=== PATIENT | male | born 1955 | race Caucasian/White ===

== ENCOUNTER 2019-11-12 13:29 | Outpatient (RCR) | payer MEDICARE, MEDICAID, SELFPAY | END 2019-12-06 23:59 | disposition home or self-care (01) | LOC: PULRHB 13:29 | PROVIDERS: Family Provider Physician Assistant; Visit Provider Family Medicine | DX: J44.9 Chronic obstructive pulmonary disease, unspecified (principal) ==

== ENCOUNTER 2019-11-20 10:03 | Inpatient (IN) | payer MEDICARE, MEDICAID, SELFPAY ==
[2019-11-20] VITALS (10 sets, daily range): BP systolic 153–177; BP diastolic 78–99; PULSE 77–92; RESP 16–28; TEMP 36.8–37; O2SAT 91–98; BMI 30.1
--- NOTE | 2019-11-20 10:12 | ED_ITS ---
Entered by Kath Mcfadden, acting as scribe for Nagi Olivarez DO HPI - SOB/Dyspnea General: Chief Complaint: Shortness of Breath/Dyspnea Stated Complaint: DIFF BREATHING Time Seen by Provider: 11/20/19 10:14 History of Present Illness: HPI Narrative: 64 yo male presents with shortness of breath. Pt recieved 125 of solumedrol by EMS prior to arrival. pt states that he has a moderately productive cough. pt states that he is chronically on 2 l iters of O2. Pt states that he feels tired and has low energry. MD elicited complaint: shortness of breath Associated symptoms: Reports nausea, orthopnea and palpitations; Deny abdominal pain, chest pain, dizziness, extremity pain, polydipsia, polyuria, syncope or vomiting Review of Systems Const: Reports: chills; Denies: body aches, fatigue, malaise or night sweats Eyes: Denies: change in vision or blurry vision ENMT: Denies: throat pain, oral sores/lesions, dental pain, nasal discharge or nasal congestion Card: Reports: palpitations, irregular heart rhythm, edema, shortness of breath on exertion and shortness of breath when lying down; Denies: chest pain, syncope or leg pain with exertion Resp: Reports: shortness of breath, productive cough and wheezing; Denies: non-productive cough GI: Reports: nausea; Denies: abdominal pain, vomiting, vomiting blood, coffee grounds in vomit, difficulty swallowing, heartburn/indigestion, diarrhea, constipation, cramping, blood in stool or black tarry stool : Denies: flank pain, difficulty urinating, painful urination, urinary frequency, urinary urgency, urinary incontinence or blood in urine Musc: Denies: neck pain, back pain, extremity pain, extremity swelling, joint pain or joint swelling Skin/Breast: Denies: rash, itching or redness Neuro: Reports: weakness in extremities and difficulty walking; Denies: headache, numbness in extremities, changes in sensation, lack of coordination, frequent falls, dizziness, vertigo or confusion Psych: Reports: anxiety and depression; Denies: loss of interest, visual hallucinations, auditory hallucinations, suicidal ideation or homicidal ideation Endo: Denies: excessive urination, excessive thirst, tired all the time or cold intolerance Dov/Lymph: Denies: easy bruising, easy bleeding, petechiae, enlarged lymph nodes or tender lymph nodes PFSH ED PFSH: Statuses (acute, chronic, etc) shown below reflect problem list status as previously entered and may not be historically accurate Medical History CAD (coronary artery disease) (Acute) CHF (congestive heart failure) (Acute) COPD (chronic obstructive pulmonary disease) (Acute) Heart attack (Acute) Hypertension (Acute) Social History Smoking and tobacco status: former smoker Physical Exam Const: COMMON NORMALS: average body habitus, oriented x3 and alert GENERAL APPEARANCE: cooperative, comfortable, well kempt and well developed NUTRITIONAL APPEARANCE: not obese ORIENTATION/CONSCIOUSNESS: Yes awake, Yes oriented to person and Yes oriented to place HENMT: COMMON NORMALS: normocephalic, head/scalp atraumatic, EAC's normal, TM's normal bilaterally, external nose normal, moist oral mucous membranes and oropharynx normal HEAD & SCALP: normocephalic and atraumatic NOSE: external nose normal EXTERNAL AUDITORY CANAL: EAC's normal TYMPANIC MEMBRANE: TM's normal bilaterally MOUTH: oral and palatal mucosa normal, lip normal and tongue normal THROAT: posterior oropharynx normal and tonsils normal Eye: COMMON NORMALS: PERRL, EOMs intact bilaterally, conjunctivae normal and no scleral icterus CONJUNCTIVA: Yes conjunctivae normal PUPIL: Yes PERRL Neck/C-Spine: COMMON NORMALS: full ROM, no lymphadenopathy, supple, no meningeal signs and thyroid normal THYROID: thyroid normal and asymmetrical Lymph: LYMPHATIC: no lymphadenopathy noted Resp: EFFORT & INSPECTION: Yes tachypneic, Yes respiratory distress, Yes actively coughing and Yes audible wheezes AUSCULTATION: wheezes Cardio: COMMON NORMALS: regular rate and regular rhythm RATE: regular rate RHYTHM: regular rhythm HEART SOUNDS: no murmurs GI: COMMON NORMALS: normal to inspection, nondistended, normoactive bowel sounds, soft to palpation and no hepatosplenomegaly PALPATION: Yes soft and Yes no hepatosplenomegaly : COMMON NORMALS: Yes no CVA tenderness BLADDER/KIDNEY EXAM: Yes no CVA tenderness Back/Pelvis: COMMON NORMALS: no CVA tenderness LUMBAR SPINE/LOWER BACK: Yes normal to inspection Extremity: COMMON NORMALS: no clubbing, cyanosis or edema, no calf tenderness and no pedal edema Neuro: COMMON NORMALS: oriented x3 SENSORIUM/ORIENTATION: Yes alert, Yes oriented to person and Yes oriented to place MENINGEAL SIGNS: Yes no meningeal signs Psych: APPEARANCE: Yes well kempt Skin: COMMON NORMALS: no rashes or lesions noted and skin turgor normal GENERAL SKIN EXAM: no rashes or lesions noted and turgor normal Course ED course: Patient requiring 5 L of oxygen to maintain oxygen saturation was mildly hypoxic initial blood gas. Will admit for exacerbation COPD also cover with antibiotics may benefit from diuresis as well has had problems with heart failure in the past Vital Signs: Vital signs: Vital Signs Temperature 98.3 F 11/20/19 10:05 Pulse Rate 92 11/20/19 14:53 Respiratory Rate 20 H 11/20/19 14:53 Blood Pressure 156/78 11/20/19 14:53 Pulse Oximetry 95 11/20/19 14:53 MDM - SOB/Dyspnea Lab Data: Labs: Lab Results 11/20/19 11/20/19 11/20/19 Range/Units 09:52 09:52 11:20 WBC 7.5 (4.0-10.0) 10^3/ uL RBC 5.32 H (4.1-5.3) 10^6/u L Hgb 14.1 (11.7-16.6) g/dL Hct 44.7 (42.0-52.0) % MCV 84.0 (80-94) fL MCH 26.5 L (28.0-34.0) pg MCHC 31.5 (30.0-36.0) g/dL RDW 15.6 H (12.1-15.1) % Plt Count 286 (130-400) 10^3/c mm MPV 9.9 (7.4-10.4) fL Neut % (Auto) 81.6 % Lymph % (Auto) 7.4 % Glades % (Auto) 9.5 % Eos % (Auto) 0.5 % Baso % (Auto) 0.7 % Neut # (Auto) 6.1 (1.8-7.7) 10^3/u L Lymph # (Auto) 0.6 L (0.8-4.8) 10^3/u L Glades # (Auto) 0.7 (0.2-0.9) 10^3/u L Eos # (Auto) 0.0 (0.0-0.8) 10^3/u L Baso # (Auto) 0.1 (0.0-0.1) 10^3/u L Nucleated RBC % (a uto) 0 % Nucleated RBCs # 0.0 /100WBC Specimen Type Arterial Sample Site Radial, right ABG pH 7.39 (7.35-7.45) ABG pCO2 56.0 H (35-45) mmHg ABG pO2 49.8 L (80.0-100.0) mmH g ABG HCO3 34.2 H (22-26) mmol/L ABG Base Excess 7.4 H (-2.0-2.0) mmol/ L Gee Test Pos Hematocrit 42.0 (42-52) % Hgb O2 Saturation 80.2 L (95-100) % Carboxyhemoglobin 6.8 (0.4-20.1) %THgb Methemoglobin 0.9 (0.4-1.5) % Total Hemoglobin 13.7 L (14-18) g/dL O2 Delivery Device Nc O2 Liters/Min 5.0 % Specimen Drawn By [email or web address] Sock Ironer ID [email or web address] Sodium 140 (136-145) mmol/L Potassium 4.5 (3.5-5.1) mmol/L Chloride 98 (98-107) mmol/L Carbon Dioxide 32 H (22-29) mmol/L Anion Gap 14.5 (5-19) BUN 11 (8-23) mg/dL Creatinine 0.7 (0.7-1.2) mg/dL GFR Calculation 114.3 (90-130) mL/min Glucose 118 H (74-106) mg/dL Calcium 9.5 (8.8-10.2) mg/Dl Total Bilirubin 0.3 (0.15-1.2) mg/dL AST 15 (0-40) U/L ALT 13 (0-41) U/L Alkaline Phosphata se 114 (40-130) IU/L Total Protein 6.8 (6.6-8.7) g/dL Albumin 4.2 (3.5-5.2) g/dL Globulin 2.6 (1.3-4.6) g/dL Influenza Type A A g (Negative) POC Influenza B Ag (Negative) 11/20/19 11/20/19 Range/Units 11:58 13:20 WBC (4.0-10.0) 10^3/ uL RBC (4.1-5.3) 10^6/u L Hgb (11.7-16.6) g/dL Hct (42.0-52.0) % MCV (80-94) fL MCH (28.0-34.0) pg MCHC (30.0-36.0) g/dL RDW (12.1-15.1) % Plt Count (130-400) 10^3/c mm MPV (7.4-10.4) fL Neut % (Auto) % Lymph % (Auto) % Glades % (Auto) % Eos % (Auto) % Baso % (Auto) % Neut # (Auto) (1.8-7.7) 10^3/u L Lymph # (Auto) (0.8-4.8) 10^3/u L Glades # (Auto) (0.2-0.9) 10^3/u L Eos # (Auto) (0.0-0.8) 10^3/u L Baso # (Auto) (0.0-0.1) 10^3/u L Nucleated RBC % (a uto) % Nucleated RBCs # /100WBC Specimen Type Arterial Sample Site Radial, right ABG pH 7.37 (7.35-7.45) ABG pCO2 56.8 H (35-45) mmHg ABG pO2 57.3 L (80.0-100.0) mmH g ABG HCO3 32.6 H (22-26) mmol/L ABG Base Excess 5.6 H (-2.0-2.0) mmol/ L Gee Test Pos Hematocrit 42.5 (42-52) % Hgb O2 Saturation (95-100) % Carboxyhemoglobin (0.4-20.1) %THgb Methemoglobin (0.4-1.5) % Total Hemoglobin (14-18) g/dL O2 Delivery Device O2 Liters/Min 5.0 % Specimen Drawn By Sock Ironer ID [id number] Sodium (136-145) mmol/L Potassium (3.5-5.1) mmol/L Chloride (98-107) mmol/L Carbon Dioxide (22-29) mmol/L Anion Gap (5-19) BUN (8-23) mg/dL Creatinine (0.7-1.2) mg/dL GFR Calculation (90-130) mL/min Glucose (74-106) mg/dL Calcium (8.8-10.2) mg/Dl Total Bilirubin (0.15-1.2) mg/dL AST (0-40) U/L ALT (0-41) U/L Alkaline Phosphata se (40-130) IU/L Total Protein (6.6-8.7) g/dL Albumin (3.5-5.2) g/dL Globulin (1.3-4.6) g/dL Influenza Type A A g Negative (Negative) POC Influenza B Ag Negative (Negative) Discharge Plan Discharge Patient Disposition: Placed in Observation Admit Provider: Jany Eugene Clinical Impression: Acute exacerbation of chronic obstructive airways disease, Congestive heart failure Interventions: ED Discharge Assessment Last Done: 11/20/19 14:53 Discharge Date/Time: 11/20/19 14:57 Coding Level of Care Code ED Inventory And Pricing Associate for Chg Fwd Exam Problem Focused The documentation recorded by the Bogdan arteaga Kialy, accurately reflects the service I personally performed and the decisions made by Sher seo Curtis L, DO Nov 20, 2019 10:03
--- NOTE | 2019-11-20 10:14 | XR_ITS ---
WS: [id number] PORTABLE CHEST HISTORY: dyspnea COMPARISON: 05/09/2019 Mild progression of interstitial thickening throughout both lungs since the prior examination. No con solidations. No pleural effusion or pneumothorax. Cardiac size: Normal. Mediastinum/Aorta: Mild atherosclerosis aorta. No osseous abnormality seen. XR/XR chest 1V portable [id number] IMPRESSION: 1. Progression of interstitial thickening since the prior study. May be progre ssion of patient's known chronic interstitial lung disease or mild interstitial edema. 2. No pneumonia.
[2019-11-20 10:22] LABS: Basophils # 0.1 10^3/uL (0.0-0.1); Basophils % 0.7 %; Eosinophils % 0.5 %; Hematocrit 44.7 % (42.0-52.0); Hemoglobin 14.1 g/dL (11.7-16.6); Lymphocytes # 0.6 10^3/uL (0.8-4.8); Lymphocytes % 7.4 %; Mean Corpuscular HGB Conc 31.5 g/dL (30.0-36.0); Mean Corpuscular Hemoglobin 26.5 pg (28.0-34.0); Mean Platelet Volume 9.9 fL (7.4-10.4); Monocytes # 0.7 10^3/uL (0.2-0.9); Monocytes % 9.5 %; Neutrophils # 6.1 10^3/uL (1.8-7.7); Neutrophils % 81.6 %; Nucleated Red Blood Cells % 0 %; Platelet Count 286 10^3/cmm (130-400); Red Blood Count 5.32 10^6/uL (4.1-5.3); Red Cell Distribution Width 15.6 % (12.1-15.1); White Blood Count 7.5 10^3/uL (4.0-10.0)
[2019-11-20 10:43] LABS: Alanine Aminotransferase 13 U/L (0-41); Albumin Level 4.2 g/dL (3.5-5.2); Alkaline Phosphatase 114 IU/L (40-130); Anion Gap 14.5 (5-19); Aspartate Amino Transferase 15 U/L (0-40); Blood Urea Nitrogen 11 mg/dL (8-23); Calcium 9.5 mg/Dl (8.8-10.2); Carbon Dioxide 32 mmol/L (22-29); Chloride 98 mmol/L (98-107); Globulin 2.6 g/dL (1.3-4.6); Glomerular Filtration Rate 114.3 mL/min (90-130); Glucose 118 mg/dL (74-106); Potassium 4.5 mmol/L (3.5-5.1); Sodium 140 mmol/L (136-145); Total Bilirubin 0.3 mg/dL (0.15-1.2); Total Protein 6.8 g/dL (6.6-8.7)
[2019-11-20] MEDS: ipratropium-albuterol 3 mL Neb INHALATION ×4 (11:20→21:55)
[2019-11-20 11:33] LABS: ABG PH Result 7.39 (7.35-7.45); Base Excess ABG 7.4 mmol/L (-2.0-2.0); Blood Gas Allen Test Pos; Blood Gas Sample Site Radial, right; Blood Gas Sample Type Arterial; Carboxyhemoglobin 6.8 %THgb (0.4-20.1); HCO3 ABG 34.2 mmol/L (22-26); HGB O2 Sat 80.2 % (95-100); Methemoglobin 0.9 % (0.4-1.5); PO2 ABG 49.8 mmHg (80.0-100.0); Total Hemoglobin 13.7 g/dL (14-18)
[2019-11-20 12:41] LABS: Influenza A by IFA Negative (Negative); Influenza B by IFA Negative (Negative)
[2019-11-20 13:34] LABS: ABG PCO2 56.8 mmHg (35-45); ABG PH Result 7.37 (7.35-7.45); Arterial Blood Gas Hematocrit 42.5 % (42-52); Base Excess ABG 5.6 mmol/L (-2.0-2.0); Blood Gas Allen Test Pos; Blood Gas Sample Site Radial, right; Blood Gas Sample Type Arterial; HCO3 ABG 32.6 mmol/L (22-26); PO2 ABG 57.3 mmHg (80.0-100.0)
[2019-11-20] MEDS: levofloxacin-dextrose 5 % 750 MG/150 ML PREMIX 150 MG IV (13:38)
[2019-11-20 13:39] LABS: Oxygen Device NC
--- NOTE | 2019-11-20 14:21 | P.HP_ITS ---
Providers/Chief Complaint Admitting Physician: Jany Eugene MD Primary Care Provider: Nasreen Gomez Chief Complaint: DIFF BREATHING History of Present Illness Nagi Cuellar is a 64 year old male with a past medical history of COPD, congestive heart failure, atrial fibrillation not on anticoagulation due to massive GI bleeding in the past and diabetes who presents to the ED today with worsening shortness of breath over the past 3 to 4 days. Patient states he has been experiencing symptoms of runny nose, some chills and dry cough over the past week or so. He has been noncompliant with his medications including nebulizations, his Lasix, and rate control medications as he has run out of his medications and is unable to afford to buy them until next month. He states he gets paid on the third of every month and will not be able to get any prescriptions until next month when he gets paid. In the ED he was noted to be tachypneic on exam upon arrival, wheezing and received Solu-Medrol and multiple rounds of nebulizations after which his breathing has now improved. He has noticed increased lower extremity edema over the past 1 week. He was also receiving IV fluids which have now been stopped and Lasix 40 mg IV has been administered. ABG performed today shows evidence of hypoxia and chronic hypercapnia. He is currently compensated with a pH of 7.37 elevated bicarb. Denies any current complaints of chest pain or palpitations. Review of Systems General: Reports: 10 or more systems reviewed and unremarkable except in HPI and below Const: Reports: fever, chills and body aches Eyes: Denies: change in vision or blurry vision Card: Reports: swelling of feet/ankles; Denies: chest pain, palpitations or irregular heart rhythm Resp: Reports: shortness of breath, non-productive cough and wheezing; Denies: productive cough, pain on inspiration or coughing up blood GI: Denies: abdominal pain, nausea, vomiting or diarrhea : Denies: urinary frequency, urinary urgency or urinary hesitancy Neuro: Denies: headache, numbness in extremities, weakness in extremities, dizziness, vertigo or confusion Psych: Reports: anxiety; Denies: depression or mood swings Endo: Denies: excessive urination, excessive thirst, tired all the time or cold intolerance Dov/Lymph: Denies: easy bruising or easy bleeding Medications/Allergies Home Medications Medication Instructions Recorded Confirmed Last Taken Type albuterol sulfate 1.25 mg INHALATION Q4H PRN 11/20/19 11/20/19 Unknown History digoxin 125 mcg PO DAILY 11/20/19 11/20/19 11/20/19 History diltiazem HCl [Cartia XT] 240 mg PO DAILY 11/20/19 11/20/19 11/20/19 History fluticasone propion-salmeterol 1 inh INHALATION BID 11/20/19 11/20/19 11/19/19 History [Advair Diskus] furosemide [Lasix] 40 mg PO BID 11/20/19 11/20/19 Unknown History insulin glargine [Basaglar KwikPen 20 unit SUBCUT BEDTIME 11/20/19 11/20/19 11/19/19 History U-100 Insulin] omeprazole 20 mg PO DAILY 11/20/19 11/20/19 Unknown History potassium chloride 20 meq PO BID 11/20/19 11/20/19 11/20/19 History roflumilast [Daliresp] 500 mcg PO DAILY 11/20/19 11/20/19 11/20/19 History rosuvastatin 10 mg PO DAILY 11/20/19 11/20/19 11/20/19 History sitagliptin [Januvia] 50 mg PO DAILY 11/20/19 11/20/19 11/20/19 History trazodone 50 mg PO BEDTIME 11/20/19 11/20/19 11/19/19 History umeclidinium [Incruse Ellipta] 1 inh INHALATION DAILY 11/20/19 11/20/19 11/20/19 History Allergies Allergy/AdvReac Type Severity Reaction Status Date / Time No Known Allergies Allergy Verified 11/20/19 10:12 PFSH Acute PFSH: Statuses (acute, chronic, etc) shown below reflect problem list status as previously entered and may not be historically accurate Medical History CAD (coronary artery disease) (Acute) CHF (congestive heart failure) (Acute) COPD (chronic obstructive pulmonary disease) (Acute) Heart attack (Acute) Hypertension (Acute) Social History Smoking and tobacco status: former smoker Vitals/I&O/Wt Last Vital Signs Temp 98.3 F 11/20/19 10:05 Pulse 86 11/20/19 13:33 Resp 24 H 11/20/19 13:33 BP 177/99 11/20/19 10:05 Pulse Ox 93 11/20/19 13:33 Weight last 48 hrs Weight 82.1 kg Physical Exam Const: COMMON NORMALS: no apparent distress, oriented x3 and alert Eye: COMMON NORMALS: PERRL and EOMs intact bilaterally Chest: COMMONS NORMALS: inspection of chest normal Resp: COMMON NORMALS: normal respiratory effort, no retractions and no use of accessory muscles AUSCULTATION: crackles Laterality: bilateral and rhonchi lower bilaterally Cardio: COMMON NORMALS: no JVD, regular rate, regular rhythm, S1 normal heart sound, S2 normal heart sound, no gallops, no clicks, no murmurs, no rub and peripheral pulses 2+ throughout GI: COMMON NORMALS: normal to inspection, nondistended, normoactive bowel sounds, soft to palpation, non-tender, no hepatosplenomegaly and no masses Extremity: GENERAL: Yes edema Neuro: COMMON NORMALS: oriented x3, CN's II-XII intact bilaterally, moves all extremities, no focal motor deficits, no sensory deficits noted, deep tendon reflexes 2+ bilaterally and gait normal Psych: COMMON NORMALS: mental status grossly normal Skin: GENERAL SKIN EXAM: no rashes or lesions noted Data : 11/20/19 09:52 11/20/19 09:52 A&P Assessment and plan (1) Acute exacerbation of chronic obstructive airways disease: Admit to observation for COPD exacerbation and hypoxic respiratory failure. Solu-Medrol 80 mg IV every 6 hours. DuoNebs every 4 hours. Budesonide patient twice a day BiPAP at nighttime and as needed as needed. Supplemental O2 to keep O2 sats greater than 90%. Is on home O2 at 2 L/min at all times. He is requiring about 4 L/min. Per report patient was initially tachypneic on exam concern for respiratory fatigue, however at the time of my evaluation he is able to converse with me in complete sentences without any acute distress at this time. Status: Acute Code(s): J44.1 - Chronic obstructive pulmonary disease with (acute) exacerbation (2) Congestive heart failure: Stop IV fluids 40 mg of IV Lasix now Check BNP Standing Lasix 40 mg IV daily. May need to diurese more based on symptoms and progression of edema. Last echo in the system dates back to 04/2018 at which time he was noted to have EF of 60%, moderate left ventricular hypertrophy, no regional wall motion abnormalities and grade 1 diastolic dysfunction. Status: Acute Code(s): I50.9 - Heart failure, unspecified (3) Hypertension: Status: Acute Code(s): I10 - Essential (primary) hypertension (4) Diabetes: Status: Acute Code(s): E11.9 - Type 2 diabetes mellitus without complications (5) Atrial fibrillation: Currently A. fib that is rate controlled. We will resume home doses of digoxin and Cardizem extended release. Patient is not on anticoagulation due to history of GI bleed in 2019. He declines even low-dose aspirin at this time though he does carry a history of CAD in the past. Status: Acute Code(s): I48.91 - Unspecified atrial fibrillation Attestations Medical Necessity Statement*: Admitted for management of acute on chronic COPD exacerbation. Coding Level of Care Code Acute Machine Brush Maker for [facility] Diagnoses Acute exacerbation of chronic obstructive airways disease J44.1 Congestive heart failure I50.9 Hypertension I10 Diabetes E11.9 Atrial fibrillation I48.91
[2019-11-20] MEDS: FUROsemide 10 mg/mL SDV 4mL 40 MG IVP ×2 (14:51→16:45)
[2019-11-20] MEDS: sodium chloride 0.9% 1,000 ML 100 ML IV (16:45)
[2019-11-20] MEDS: enoxaparin 40 mg/0.4 mL Syringe SUBCUT (16:46)
[2019-11-20 16:51] LABS: Glucose Point of Care 177 mg/dL (70-110)
[2019-11-20 17:07] LABS: NT Pro B Type Natriuretic Pept 185 pg/mL (0-125)
[2019-11-20] MEDS: trazodone 50 mg Tablet PO (20:36)
[2019-11-20 23:29] LABS: Glucose Point of Care 376 mg/dL (70-110)
[2019-11-21] VITALS (17 sets, daily range): BP systolic 144–166; BP diastolic 60–80; PULSE 79–105; RESP 17–24; TEMP 36.4–37.2; O2SAT 89–95
[2019-11-21] MEDS: ipratropium-albuterol 3 mL Neb INHALATION ×7 (02:05→23:50)
[2019-11-21] MEDS: FUROsemide 10 mg/mL SDV 4mL 40 MG IVP ×2 (03:04→15:07)
[2019-11-21 04:31] LABS: Alanine Aminotransferase 10 U/L (0-41); Albumin Level 3.2 g/dL (3.5-5.2); Alkaline Phosphatase 97 IU/L (40-130); Anion Gap 13.9 (5-19); Blood Urea Nitrogen 19 mg/dL (8-23); Calcium 8.8 mg/Dl (8.8-10.2); Carbon Dioxide 30 mmol/L (22-29); Chloride 97 mmol/L (98-107); Glomerular Filtration Rate 85.5 mL/min (90-130); Glucose 236 mg/dL (74-106); Potassium 3.9 mmol/L (3.5-5.1); Sodium 137 mmol/L (136-145); Total Bilirubin 0.2 mg/dL (0.15-1.2); Total Protein 6.2 g/dL (6.6-8.7)
[2019-11-21 04:40] LABS: Hematocrit 38.9 % (42.0-52.0); Hemoglobin 12.1 g/dL (11.7-16.6); Lymphocytes # 0.2 10^3/uL (0.8-4.8); Lymphocytes % 3.5 %; Mean Corpuscular HGB Conc 31.1 g/dL (30.0-36.0); Mean Corpuscular Hemoglobin 26.4 pg (28.0-34.0); Mean Corpuscular Volume 84.7 fL (80-94); Mean Platelet Volume 10.7 fL (7.4-10.4); Monocytes # 0.2 10^3/uL (0.2-0.9); Monocytes % 2.5 %; Neutrophils # 5.7 10^3/uL (1.8-7.7); Neutrophils % 93.5 %; Nucleated Red Blood Cells % 0 %; Platelet Count 267 10^3/cmm (130-400); Red Blood Count 4.59 10^6/uL (4.1-5.3); Red Cell Distribution Width 15.5 % (12.1-15.1)
[2019-11-21 04:47] LABS: Aspartate Amino Transferase 16 U/L (0-40)
[2019-11-21 05:25] LABS: Estmated Average Glucose 120; Hemoglobin A1C 5.8 % (4.0-6.0)
[2019-11-21] MEDS: budesonide 0.5 mg/2 mL Neb INHALATION ×2 (07:32→20:41)
[2019-11-21 07:33] LABS: Glucose Point of Care 200 mg/dL (70-110)
[2019-11-21] MEDS: atorvastatin 40 mg Tablet 20 MG PO (08:08)
[2019-11-21] MEDS: dilTIAZem ER (24HR) 240 mg Capsule PO (08:09)
[2019-11-21] MEDS: pantoprazole DR 40 mg Tablet PO (08:09)
[2019-11-21] MEDS: roflumilast 500 mcg Tablet PO (08:09)
[2019-11-21] MEDS: digoxin 125 mcg Tablet PO (08:09)
[2019-11-21 11:29] LABS: Glucose Point of Care 249 mg/dL (70-110)
--- NOTE | 2019-11-21 12:22 | PC.CHAP ---
Pastoral Care Encounter/Spiritual Assessment Type of Contact [] Declined morning caregiver visit [] Patient/Family/Request visit [] Outpatient visit [] Follow-up visit [] Physician referral [] Code/Alert [] Routine visit [] Staff referral [] Actively dying [] Patient sleeping [] Family support [] [] Out of room [] Palliative care [] [x] Receiving care in room [] Pre-surgical visit [] Trauma [] Long length of stay [] ICU visit [] Other: Relational/Emotional Strength [] Patient feels connected with others/family/visitors/staff [] Distress [] Loneliness/isolation [] Abandonment Spirituality of Patient [] Person of Margret [] Attends [employer] of their Margret [] Believes in Prayer [] Reads Bible or Church materials [] There are Spiritual issues to be addressed Platform Material Handler Manager Interventions [] Prayer [] Active listening [] Non-anxious presence [] Spiritual/emotional support [] Crisis/trauma care [] Spiritual counseling [] Bereavement support [] Provided bereavement packet [] Provided Bible/devotional materials [] Provided toy/stuffed animal, coloring book to patient or family member [] Completed spiritual assessment [] Provided Communion [] Anointing/[place] [] Salvation [] Other: Impact on Illness or Injury [] Angry [] Fearful [] Anxious [] Often cries [] Exhaustion [] Unable to work [] Unable to attend voodoo [] Unable to walk/stand [] Unable to read [] Unable to drive [] Unable to eat/drink [] Unable to sleep [] Unable to be with family [] Other: Summary Time spent with patient
[2019-11-21 13:35] LABS: Influenza A by IFA Negative (Negative); Influenza B by IFA Negative (Negative)
[2019-11-21] MEDS: enoxaparin 40 mg/0.4 mL Syringe SUBCUT (15:10)
[2019-11-21 16:37] LABS: Glucose Point of Care 188 mg/dL (70-110)
[2019-11-21] MEDS: guaiFENesin 100 mg/5 mL UDC 10 mL 400 MG PO (17:57)
[2019-11-21 18:42] LABS: Oxygen Device NC
--- NOTE | 2019-11-21 19:04 | PM.PN ---
Subjective Subjective: Interval history: Still c/o shortness of breath, not at baseline. tachypneic when assesed for examination earlier this afternoon. denies any current chest pain. Cough predominant symptoms. Medications: Reviewed: Yes Vitals/I&O/Wt Last Vital Signs Temp 98.2 F 11/21/19 15:54 Pulse 79 11/21/19 15:54 Resp 18 11/21/19 15:54 BP 152/78 11/21/19 15:54 Pulse Ox 92 11/21/19 15:54 11/21/19 11/21/19 11/21/19 06:59 14:59 22:59 Intake Total 1200 / 1550 480 / 480 240 / 720 Output Total 400 / 2000 450 / 450 2000 / 2450 Balance 800 / -450 30 / 30 -1760 / -1730 Weight last 48 hrs Weight 82.645 kg Weight 82.1 kg Physical Exam Const: COMMON NORMALS: oriented x3 and alert OTHER: tachypneic, looks uncomfortable Eye: COMMON NORMALS: PERRL and EOMs intact bilaterally PUPIL: Yes PERRL Neck/C-Spine: COMMON NORMALS: no JVD Chest: COMMONS NORMALS: inspection of chest normal Resp: COMMON NORMALS: normal respiratory effort, no retractions and no use of accessory muscles AUSCULTATION: crackles Laterality: bilateral and rhonchi lower bilaterally Cardio: COMMON NORMALS: no JVD, regular rate, regular rhythm, S1 normal heart sound, S2 normal heart sound, no gallops, no clicks, no murmurs, no rub and peripheral pulses 2+ throughout RATE: regular rate RHYTHM: regular rhythm HEART SOUNDS: S1 normal and S2 normal PERIPHERAL PULSES: pulses 2+ throughout GI: COMMON NORMALS: normal to inspection, nondistended, normoactive bowel sounds, soft to palpation, non-tender, no hepatosplenomegaly and no masses PALPATION: Yes soft and Yes no hepatosplenomegaly Extremity: GENERAL: Yes edema Neuro: COMMON NORMALS: oriented x3, CN's II-XII intact bilaterally, moves all extremities, no focal motor deficits, no sensory deficits noted, deep tendon reflexes 2+ bilaterally and gait normal SENSORIUM/ORIENTATION: Yes alert Psych: COMMON NORMALS: mental status grossly normal Skin: COMMON NORMALS: no rashes or lesions noted GENERAL SKIN EXAM: no rashes or lesions noted A&P Assessment and plan (1) Acute exacerbation of chronic obstructive airways disease: Admit to inpatient for ongoing managment of COPD exacerbation and hypoxic respiratory failure. Solu-Medrol 80 mg IV every 6 hours. DuoNebs every 4 hours. Budesonide patient twice a day BiPAP at nighttime and as needed as needed. Supplemental O2 to keep O2 sats greater than 90%. Is on home O2 at 2 L/min at all times. He is requiring about 4 L/min. Influenza negative Status: Acute Code(s): J44.1 - Chronic obstructive pulmonary disease with (acute) exacerbation (2) Congestive heart failure: Continue Lasix 40 mg IV q12h daily. Last echo in the system dates back to 04/2018 at which time he was noted to have EF of 60%, moderate left ventricular hypertrophy, no regional wall motion abnormalities and grade 1 diastolic dysfunction. Status: Acute Code(s): I50.9 - Heart failure, unspecified (3) Hypertension: Status: Acute Code(s): I10 - Essential (primary) hypertension (4) Diabetes: Status: Acute Code(s): E11.9 - Type 2 diabetes mellitus without complications (5) Atrial fibrillation: Currently A. fib that is rate controlled. We will resume home doses of digoxin and Cardizem extended release. Patient is not on anticoagulation due to history of GI bleed in 2019. He declines even low-dose aspirin at this time though he does carry a history of CAD in the past. Status: Acute Code(s): I48.91 - Unspecified atrial fibrillation Attestations Medical Necessity Statement*: ongoing managament of COPD exacerbation, hypoxic resp failure awaiting optimization of respiratory status Coding Level of Care Code Acute Wireless Cellular Technician for [facility] Fwd Diagnoses Acute exacerbation of chronic obstructive airways disease J44.1 Congestive heart failure I50.9 Hypertension I10 Diabetes E11.9 Atrial fibrillation I48.91
[2019-11-21] MEDS: trazodone 50 mg Tablet PO (20:55)
[2019-11-21 22:14] LABS: Glucose Point of Care 207 mg/dL (70-110)
[2019-11-22] VITALS (12 sets, daily range): BP systolic 150–162; BP diastolic 63–78; PULSE 71–100; RESP 18–24; TEMP 36.6–37; O2SAT 86–93
[2019-11-22] MEDS: FUROsemide 10 mg/mL SDV 4mL 40 MG IVP (03:33)
[2019-11-22] MEDS: ipratropium-albuterol 3 mL Neb INHALATION ×3 (03:37→11:06)
[2019-11-22] MEDS: guaiFENesin 100 mg/5 mL UDC 10 mL 400 MG PO ×2 (04:52→12:11)
[2019-11-22] MEDS: levoFLOXacin 750 mg Tablet PO (06:10)
[2019-11-22 06:22] LABS: Basophils % 0.1 %; Hematocrit 41.8 % (42.0-52.0); Hemoglobin 13.2 g/dL (11.7-16.6); Lymphocytes # 0.2 10^3/uL (0.8-4.8); Lymphocytes % 1.5 %; Mean Corpuscular HGB Conc 31.6 g/dL (30.0-36.0); Mean Corpuscular Hemoglobin 27.4 pg (28.0-34.0); Mean Corpuscular Volume 86.9 fL (80-94); Mean Platelet Volume 10.4 fL (7.4-10.4); Monocytes # 0.3 10^3/uL (0.2-0.9); Monocytes % 2.3 %; Neutrophils # 12.8 10^3/uL (1.8-7.7); Neutrophils % 95.7 %; Nucleated Red Blood Cells % 0 %; Platelet Count 289 10^3/cmm (130-400); Red Blood Count 4.81 10^6/uL (4.1-5.3); Red Cell Distribution Width 15.9 % (12.1-15.1); White Blood Count 13.4 10^3/uL (4.0-10.0)
[2019-11-22 06:37] LABS: Glucose Point of Care 194 mg/dL (70-110)
[2019-11-22 06:45] LABS: Anion Gap 19.3 (5-19); Blood Urea Nitrogen 22 mg/dL (8-23); Calcium 9.5 mg/Dl (8.8-10.2); Carbon Dioxide 31 mmol/L (22-29); Chloride 92 mmol/L (98-107); Glucose 248 mg/dL (74-106); Potassium 3.3 mmol/L (3.5-5.1); Sodium 139 mmol/L (136-145)
[2019-11-22] MEDS: budesonide 0.5 mg/2 mL Neb INHALATION (07:32)
--- NOTE | 2019-11-22 07:46 | PC.RESP ---
pt refused bipap
[2019-11-22] MEDS: benzonatate 100 mg Capsule 200 MG PO (08:23)
[2019-11-22] MEDS: digoxin 125 mcg Tablet PO (08:24)
[2019-11-22] MEDS: pantoprazole DR 40 mg Tablet PO (08:25)
[2019-11-22] MEDS: roflumilast 500 mcg Tablet PO (08:25)
[2019-11-22] MEDS: atorvastatin 40 mg Tablet 20 MG PO (08:26)
[2019-11-22] MEDS: dilTIAZem ER (24HR) 240 mg Capsule PO (08:30)
[2019-11-22 10:48] LABS: Glucose Point of Care 212 mg/dL (70-110)
--- NOTE | 2019-11-22 15:36 | PC.NURSE ---
1400 Discharge Discharge instructions given per physician's orders. Patient verbalized understanding and did not have any further questions. [id number] in process.
--- NOTE | 2019-11-22 15:37 | PC.NURSE ---
1445 Patient received medications to bedside.
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
== END 2019-11-22 13:24 | disposition home or self-care (01) | DRG 192 ==
LOC: ER 13:42 → MEDSURG 14:27
PROVIDERS: Admitting Provider Student in an Organized Health Care Education/Training Program; Emergency Provider Family Medicine; Family Provider Physician Assistant; PCP Physician Assistant; Visit Provider Student in an Organized Health Care Education/Training Program
DX: J44.1 Chronic obstructive pulmonary disease with (acute) exacerbation (principal); Z79.4 Long term (current) use of insulin; Z79.02 Long term (current) use of antithrombotics/antiplatelets; Z79.51 Long term (current) use of inhaled steroids; Z79.899 Other long term (current) drug therapy; I25.10 Atherosclerotic heart disease of native coronary artery without angina pectoris; I50.9 Heart failure, unspecified; J44.9 Chronic obstructive pulmonary disease, unspecified; I25.2 Old myocardial infarction; E11.9 Type 2 diabetes mellitus without complications; I11.0 Hypertensive heart disease with heart failure; R09.02 Hypoxemia; Z99.81 Dependence on supplemental oxygen; I48.91 Unspecified atrial fibrillation
CPT/HCPCS: 12345; 36415; 36416; 36600; 71045; 80048; 80053; 82803; 82805; 82962; 83036; 83880; 85025; 87804; 94640; 94660; 96360; 96361; 96372; 96374; 96375; 99282; G0378; J1650; J1815; J1940; J1956; J2920; J7030; J7626

== ENCOUNTER 2019-12-21 15:50 | Emergency (ER) | payer MEDICARE, MEDICAID, SELFPAY ==
[2019-12-21 15:50] VITALS: BMI 30.2
--- NOTE | 2019-12-21 15:52 | ED_ITS ---
Entered by Nancy Pat, acting as scribe for HPI - Back Pain/Injury General: Chief Complaint: Back Pain/Injury Stated Complaint: BACK PAIN Time Seen by Provider: 12/21/19 15:52 Source: EMS Mode of arrival: EMS History of Present Illness: HPI Narrative: 64 yo male presents with upper back pain. pt states this started today while lifting. pt was seen at urgent care sent to the ED for back pain and low sats due to pain. pt states he has had a hx of back pain with lifting. pt denies any other symptoms at this time. worsened with movement and exertion. MD elicited complaint: back pain Pertinent past history: prior back pain Onset (ago): day(s) (today) Timing: constant Severity: moderate Radiation: none Exacerbating factors: movement, walking, coughing/sneezing and lifting Relieving factors: none Context: while lifting Associated symptoms: Reports no associated symptoms; Deny abdominal pain, chills, difficulty walking, dysuria, fatigue, fever(s), hematuria, nausea, syncope, urinary urgency or vomiting Treatments prior to arrival: other (went to urgent care sent to ED for back pain) Review of Systems General: Reports: 10 or more systems reviewed and unremarkable except in HPI and below Const: Denies: fever, chills, body aches, fatigue, malaise or night sweats Eyes: Denies: change in vision or blurry vision ENMT: Denies: throat pain, oral sores/lesions, dental pain, nasal discharge or nasal congestion Card: Denies: chest pain, palpitations, irregular heart rhythm, edema, syncope, shortness of breath on exertion, shortness of breath when lying down or leg pain with exertion Resp: Reports: productive cough GI: Denies: abdominal pain, nausea, vomiting, vomiting blood, coffee grounds in vomit, difficulty swallowing, heartburn/indigestion, diarrhea, constipation, cramping, blood in stool or black tarry stool : Denies: flank pain, difficulty urinating, painful urination, urinary frequency, urinary urgency, urinary incontinence or blood in urine Musc: Reports: back pain Skin/Breast: Denies: rash, itching or redness Neuro: Denies: headache, numbness in extremities, weakness in extremities, changes in sensation, lack of coordination, difficulty walking, frequent falls, dizziness, vertigo or confusion Psych: Denies: anxiety, depression, loss of interest, visual hallucinations, auditory hallucinations, suicidal ideation or homicidal ideation Endo: Denies: excessive urination, excessive thirst, tired all the time or cold intolerance Dov/Lymph: Denies: easy bruising, easy bleeding, petechiae, enlarged lymph nodes or tender lymph nodes PFSH ED PFSH: Medical History Atrial fibrillation CAD (coronary artery disease) CHF (congestive heart failure) COPD (chronic obstructive pulmonary disease) Diabetes Heart attack Hypertension Surgical History H/O hernia repair Family History Mother Lung disease COPD Sister Cancer Social History Smoking and tobacco status: former smoker Quit status (tobacco): has quit using tobacco Year quit tobacco: 2019PD x 45 Years Alcohol intake: never Lives independently: Yes Household members: none Current occupational status: disabled History of recent travel: No Current gender identity: Male Physical Exam Const: COMMON NORMALS: average body habitus, oriented x3 and alert GENERAL APPEARANCE: cooperative, comfortable, well kempt and well developed NUTRITIONAL APPEARANCE: obese ORIENTATION/CONSCIOUSNESS: Yes awake, Yes oriented to person and Yes oriented to place HENMT: COMMON NORMALS: normocephalic, head/scalp atraumatic, EAC's normal, TM's normal bilaterally, external nose normal, moist oral mucous membranes and oropharynx normal HEAD & SCALP: normocephalic and atraumatic NOSE: external nose normal EXTERNAL AUDITORY CANAL: EAC's normal TYMPANIC MEMBRANE: TM's normal bilaterally MOUTH: oral and palatal mucosa normal, lip normal and tongue normal THROAT: posterior oropharynx normal and tonsils normal Eye: COMMON NORMALS: PERRL, EOMs intact bilaterally, conjunctivae normal and no scleral icterus CONJUNCTIVA: Yes conjunctivae normal PUPIL: Yes PERRL Neck/C-Spine: COMMON NORMALS: full ROM, no lymphadenopathy, supple, no meningeal signs and thyroid normal THYROID: thyroid normal and asymmetrical Lymph: LYMPHATIC: no lymphadenopathy noted Resp: COMMON NORMALS: normal respiratory effort, no retractions, no use of accessory muscles and clear to auscultation bilaterally AUSCULTATION: clear to auscultation bilaterally Cardio: COMMON NORMALS: regular rate and regular rhythm RATE: regular rate RHYTHM: regular rhythm HEART SOUNDS: no murmurs GI: COMMON NORMALS: normal to inspection, nondistended, normoactive bowel sounds, soft to palpation and no hepatosplenomegaly PALPATION: Yes soft and Yes no hepatosplenomegaly Extremity: COMMON NORMALS: no clubbing, cyanosis or edema, no calf tenderness and no pedal edema Neuro: COMMON NORMALS: oriented x3 SENSORIUM/ORIENTATION: Yes alert, Yes oriented to person and Yes oriented to place MENINGEAL SIGNS: Yes no meningeal signs Psych: APPEARANCE: Yes well kempt Skin: COMMON NORMALS: no rashes or lesions noted and skin turgor normal GENERAL SKIN EXAM: no rashes or lesions noted and turgor normal Course ED course: Patient is actually having no breathing problems. The majority time been down to see me usually revolves around his breathing today it is entirely upper liters back to musculoskeletal issues he did have some relief from medications given here we will discharge him home with hydrocodone cyclobenzaprine if has persistent symptoms recheck in the office he may need physical therapy or further imaging if it persists for an extended period of time return if has acute sudden problems. Vital Signs: Vital signs: Vital Signs Temperature 98.1 F 12/21/19 15:54 Pulse Rate 80 12/21/19 18:30 Respiratory Rate 24 H 12/21/19 18:30 Blood Pressure 173/92 12/21/19 18:30 Pulse Oximetry 93 12/21/19 18:30 Discharge Plan Discharge Patient Disposition: Home, Self-Care Clinical Impression: Back pain Condition: Stable Prescriptions: New hydrocodone-acetaminophen 5-325 mg tablet 1 tab PO Q6H PRN (Reason: pain) Qty: 15 RF: 0 cyclobenzaprine 5 mg tablet 5 mg PO TID PRN (Reason: muscle spasm) Qty: 20 RF: 0 No Action [place] Ellipta 100-62.5-25 mcg blister with device 1 inh INHALATION Q24H 60 Days Qty: 60 RF: 3 oxygen intranasal RF: 0 trazodone 50 mg Tablet 50 mg PO BEDTIME RF: 0 guaifenesin 100 mg/5 mL Liquid 400 mg PO Q4H PRN (Reason: Cough) Qty: 0 RF: 0 sodium chloride [Saline Mist] 0.65 % Aerosol,[place] 1 spray nasal PRN PRN (Reason: Dryness) Qty: 0 RF: 0 furosemide [Lasix] 40 mg Tablet 40 mg PO BID 30 Days Qty: 60 RF: 3 albuterol sulfate 1.25 mg/3 mL Solution For Nebulization 1.25 mg INHALATION Q4H PRN (Reason: Shortness Of Breath) 30 Days Qty: 30 RF: 3 diltiazem HCl [Cartia XT] 240 mg Capsule,Extended Release 24hr 240 mg PO DAILY 30 Days Qty: 30 RF: 3 digoxin 125 mcg (0.125 mg) Tablet 125 mcg PO DAILY 30 Days Qty: 30 RF: 3 rosuvastatin 10 mg Tablet 10 mg PO DAILY 30 Days Qty: 30 RF: 3 Januvia 50 mg Tablet 50 mg PO DAILY 30 Days Qty: 30 RF: 3 Daliresp 500 mcg Tablet 500 mcg PO DAILY 30 Days Qty: 30 RF: 1 potassium chloride 20 mEq Tablet Extended Release 20 meq PO BID 30 Days Qty: 60 RF: 3 fluticasone propion-salmeterol [Advair Diskus] 500-50 mcg/dose Blister With Device 1 inh INHALATION BID 30 Days Qty: 1 RF: 3 omeprazole 20 mg Capsule,Delayed Release(Dr/Ec) 20 mg PO DAILY 30 Days Qty: 30 RF: 0 Basaglar KwikPen U-100 Insulin 100 unit/mL (3 mL) Insulin Pen 20 unit SUBCUT BEDTIME 30 Days Qty: 1 RF: 3 Incruse Ellipta 62.5 mcg/actuation Blister With Device 1 inh INHALATION DAILY 30 Days Qty: 1 RF: 3 Discharge Orders: Discharge Order (Routine); Ordered 12/21/19 Ordered By: Nagi Olivarez Referrals: Nasreen Gomez PA [Primary Care Provider] - Discharge Diet: Usual diet Discharge Activity: Increase activity as tolerated Activity Restrictions/Additional Instructions: If this persists or worsens follow-up with your primary care physician Discharge Date/Time: 12/21/19 18:33 Coding Level of Care Code ED 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
[2019-12-21 15:54] VITALS: BP 176/82; PULSE 81; RESP 15; TEMP 36.7; O2SAT 96
--- NOTE | 2019-12-21 16:05 | XR_ITS ---
WS: [id number] XR thoracic spine 2V [id number] REASON FOR EXAM: pain FINDINGS: Mild scoliotic curve convex to the right. From the T6-T12 vertebra as there is degenerate c hanges along the apophyseal joints. There is multiple's mild compression deformities from T7 through T12. These suggest osteoporotic comp ression. XR/XR thoracic spine 2V [id number] IMPRESSION: Scoliotic curve convex to the right. Degenerate changes T6-T12 apophyseal joints. There is a mild compression deformities T7-T12 suggesting osteoporotic compress ion changes. No complete collapse is seen.
--- NOTE | 2019-12-21 16:06 | XR_ITS ---
WS: [id number] XR chest 1V portable [id number] REASON FOR EXAM: dyspnea/cough FINDINGS: In the right lower lung there is evidence of multiple nodular densities suggesting cylindri sg bronchiectasis. There is reticular pattern in both lung [place]. The heart is not enlarged. XR/XR chest 1V portable [id number] IMPRESSION: Suspect bronchiectasis in the right lower lung. There is chronic changes throughout both lung [place].
[2019-12-21 17:22] VITALS: RESP 16
[2019-12-21] MEDS: ondansetron 2 mg/ML SDV 2 mL 4 MG IVP (17:22)
[2019-12-21] MEDS: morphine 4 mg/mL SDV 1 mL IVP (17:22)
[2019-12-21] MEDS: orphenadrine 30 mg/mL Inj 2 mL 60 MG IV (17:23)
[2019-12-21 18:30] VITALS: BP 173/92; PULSE 80; RESP 24; O2SAT 93
== END 2019-12-21 18:33 | disposition home or self-care (01) ==
PROVIDERS: Emergency Provider Family Medicine; Family Provider Physician Assistant; PCP Physician Assistant
DX: M54.9 Dorsalgia, unspecified (principal); I11.0 Hypertensive heart disease with heart failure; I50.9 Heart failure, unspecified; J44.9 Chronic obstructive pulmonary disease, unspecified; E11.9 Type 2 diabetes mellitus without complications; I25.2 Old myocardial infarction; Z87.891 Personal history of nicotine dependence
CPT/HCPCS: 71045; 72070; 96375; 99281; J2270; J2360; J2405

== ENCOUNTER 2019-12-24 11:18 | Inpatient (IN) | payer MEDICARE, MEDICAID, SELFPAY ==
[2019-12-24] VITALS (16 sets, daily range): BP systolic 127–161; BP diastolic 67–95; PULSE 79–111; RESP 16–25; TEMP 36.8–37.1; O2SAT 77–99; BMI 68.5
--- NOTE | 2019-12-24 11:29 | XR_ITS ---
WS: [id number] XR chest 1V portable [id number] REASON FOR EXAM: shortness of breath FINDINGS: Densities are again seen in the right lower lung and there is evidence of nodules in the ri ght middle lobe and left lingula segment. The cardiac silhouette is not enlarged. There is fibrosis throughout both lung [place]. XR/XR chest 1V portable [id number] IMPRESSION: Persistent nodular densities suggesting bronchiectasis Interstitial disease throughout both lung [place]
--- NOTE | 2019-12-24 11:38 | W.ED.SOB ---
HPI - SOB/Dyspnea General: Chief Complaint: Shortness of Breath/Dyspnea Stated Complaint: shortness of breath Time Seen by Provider: 12/24/19 11:20 History of Present Illness: HPI Narrative: 64-year-old male with a history of COPD and is on oxygen at 3 L at home. Patient states that he started to feel worsening shortness of breath about 4 days ago as well as back pain. He went to the urgent care and in the urgent care they noted her he was hypoxic so he was sent to the emergency department. The patient was diagnosed with back pain and sent home on hydrocodone and cyclobenzaprine. In the ED last time his respiratory status was apparently normal. Today the patient states that his shortness of breath was worse he has been and so called EMS. On arrival to the patient's home he was hypoxic with his oxygen saturation in the 60s on 4 L. He was given a DuoNeb treatment, Solu-Medrol, and his oxygen was increased to 6 L/min. He improved with this and his saturation went up to the 90s. Arrival to the ED though his oxygen saturations were in the upper 70s and low 80s on 6 L. The patient complains of productive cough, with brown sputum. He denies a fever but had a temperature of 99.1 when EMS got to his home. Patient quit smoking about 2 weeks ago. But it appears he still smokes occasionally. MD elicited complaint: shortness of breath and cough Pertinent past history: COPD Onset (ago): day(s) (4) Context: recent illness Timing: constant and progressively worsening Severity: severe Exacerbating factors: nothing Relieving factors: nothing Known history of: COPD Associated symptoms: Reports chest congestion, cough, fever(s) (99.3 by EMS) and myalgias; Deny chest pain, diaphoresis, lightheadedness, nausea, polydipsia, polyuria or sense of impending doom Treatment prior to arrival: oxygen and bronchodilator Review of Systems General: Reports: 10 or more systems reviewed and unremarkable except in HPI and below Const: Reports: fever (99.3 by EMS); Denies: diaphoresis Eyes: Denies: change in vision or blurry vision ENMT: Denies: throat pain, enlarged tonsils, painful swallowing, hoarseness, mouth pain or swelling of lips/tongue Card: Denies: chest pain or lightheadedness Resp: Reports: chest congestion GI: Denies: nausea : Denies: flank pain, painful urination, urinary frequency, urinary urgency or urinary hesitancy Musc: Denies: neck pain, back pain or extremity swelling Skin/Breast: Denies: rash, itching or redness Neuro: Denies: headache, numbness in extremities or weakness in extremities Endo: Denies: excessive urination, excessive thirst or tired all the time PFSH ED PFSH: Medical History (Updated 01/01/20 @ 00:04 by Johnny Malloy MD, [facility] [place] Atrial fibrillation -Currently normal sinus rhythm, heart rate controlled -continue Cardizem, digoxin -Has been off anticoagulation secondary to GI bleed while on Eliquis in May 2019 -Telemetry monitoring CAD (coronary artery disease) CHF (congestive heart failure) COPD (chronic obstructive pulmonary disease) oxygen dependent, 5 L at baseline Diabetes -most recent A1c-5.8 -Insulin dependent at baseline -Accu-Cheks, scheduled insulin, ISS -Hypoglycemia precautions; hyperglycemic likely secondary to steroids Heart attack Hypertension -hypertensive, continue to monitor vital signs -continue oral antihypertensives; increased dose of amlodipine DAYNE (obstructive sleep apnea) BiPAP dependent qhs due to severe DAYNE Surgical History H/O hernia repair Family History Mother Lung disease COPD Sister Cancer Social History (Updated 12/24/19 @ 17:39 by Aleta Dover MD) Smoking and tobacco status: former smoker Quit status (tobacco): has quit using tobacco Year quit tobacco: 2019 - 1PPD x 45 Years Alcohol intake: never Substance/Drug Use: never Lives independently: Yes Household members: none Current occupational status: disabled and 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 History of recent travel: No Current gender identity: Male Physical Exam Const: COMMON NORMALS: no apparent distress, average body habitus, oriented x3, no limitations, healthy appearing, alert and well nourished HENMT: COMMON NORMALS: normocephalic, head/scalp atraumatic and moist oral mucous membranes HEAD & SCALP: normocephalic and atraumatic Eye: COMMON NORMALS: PERRL, EOMs intact bilaterally, conjunctivae normal and no scleral icterus CONJUNCTIVA: Yes conjunctivae normal PUPIL: Yes PERRL Neck/C-Spine: COMMON NORMALS: full ROM, supple, no meningeal signs, no JVD and no carotid bruits Chest: COMMONS NORMALS: inspection of chest normal and palpation of chest normal Resp: COMMON NORMALS: no use of accessory muscles and percussion normal EFFORT & INSPECTION: Yes pursed lip breathing and Yes labored AUSCULTATION: crackles, wheezes and diminished lung sounds PERCUSSION: percussion normal Cardio: COMMON NORMALS: no JVD, regular rate, regular rhythm, S1 normal heart sound, S2 normal heart sound, no gallops, no clicks, no murmurs, no rub and peripheral pulses 2+ throughout RATE: regular rate RHYTHM: regular rhythm HEART SOUNDS: S1 normal and S2 normal PERIPHERAL PULSES: pulses 2+ throughout GI: COMMON NORMALS: normal to inspection, nondistended, normoactive bowel sounds, soft to palpation, non-tender, no hepatosplenomegaly, no masses and no bruits PALPATION: Yes soft and Yes no hepatosplenomegaly : COMMON NORMALS: Yes no CVA tenderness BLADDER/KIDNEY EXAM: Yes no CVA tenderness Back/Pelvis: COMMON NORMALS: no CVA tenderness Extremity: COMMON NORMALS: normal to inspection, full ROM, normal capillary refill, no calf tenderness and no pedal edema Neuro: COMMON NORMALS: oriented x3 SENSORIUM/ORIENTATION: Yes alert MENINGEAL SIGNS: Yes no meningeal signs Skin: COMMON NORMALS: no rashes or lesions noted, no wounds, skin turgor normal, no jaundice, no petechiae and no mottling GENERAL SKIN EXAM: no rashes or lesions noted and turgor normal Course Consultations: Consultation #1: Dr. Dover. Hospitalist. She kindly accepted the patient to her service. Vital Signs: Vital signs: Vital Signs Temperature 98.9 F 12/28/19 12:23 Pulse Rate 93 12/28/19 12:23 Respiratory Rate 18 12/28/19 12:23 Blood Pressure 136/76 12/28/19 12:23 Pulse Oximetry 92 12/28/19 12:23 MDM - SOB/Dyspnea MDM Narrative: Medical decision making narrative: Patient with clinical features of a COPD exacerbation. He is admitted for further evaluation and management. Lab Data: Labs: Lab Results 12/24/19 12/24/1912/24/20 Range/Units 11:37 11:41 11:45 WBC 10.3 H (4.0-10.0) 10^3/ uL RBC 5.23 (4.1-5.3) 10^6/u L Hgb 13.8 (11.7-16.6) g/dL Hct 44.1 (42.0-52.0) % MCV 84.3 (80-94) fL MCH 26.4 L (28.0-34.0) pg MCHC 31.3 (30.0-36.0) g/dL RDW 16.4 H (12.1-15.1) % Plt Count 310 (130-400) 10^3/c mm MPV 10.3 (7.4-10.4) fL Neut % (Auto) 81.5 % Lymph % (Auto) 5.0 % Quay % (Auto) 12.4 % Eos % (Auto) 0.0 % Baso % (Auto) 0.3 % Neut # (Auto) 8.4 H (1.8-7.7) 10^3/u L Lymph # (Auto) 0.5 L (0.8-4.8) 10^3/u L Quay # (Auto) 1.3 H (0.2-0.9) 10^3/u L Eos # (Auto) 0.0 (0.0-0.8) 10^3/u L Baso # (Auto) 0.0 (0.0-0.1) 10^3/u L Nucleated RBC % (a uto) 0 % Nucleated RBCs # 0.0 /100WBC D-Dimer (0-0.59) ug/mIFE U Specimen Type Arterial Sample Site Radial, left ABG pH 7.39 (7.35-7.45) ABG pCO2 62.3 H* (35-45) mmHg ABG pO2 51.8 L (80.0-100.0) mmH g ABG HCO3 37.9 H (22-26) mmol/L ABG Base Excess 10.4 H (-2.0-2.0) mmol/ L Gee Test Pos Hematocrit 43.0 (42-52) % Hgb O2 Saturation 80.7 L (95-100) % Carboxyhemoglobin 6.6 (0.4-20.1) %THgb Methemoglobin 0.5 (0.4-1.5) % Total Hemoglobin 14.0 (14-18) g/dL O2 Delivery Device Nc O2 Liters/Min 6.0 % Equipment Hire Manager ID [email or web address] Sodium (136-145) mmol/L Potassium (3.5-5.1) mmol/L Chloride (98-107) mmol/L Carbon Dioxide (22-29) mmol/L Anion Gap (5-19) BUN (8-23) mg/dL Creatinine (0.7-1.2) mg/dL GFR Calculation (90-130) mL/min Glucose (65-115) mg/dL Calcium (8.5-10.5) mg/dL Total Bilirubin (0.15-1.2) mg/dL AST (0-40) U/L ALT (0-41) U/L Alkaline Phosphata se (40-130) IU/L NT-Pro-B Natriuret Pep (0-125) pg/mL Total Protein (6.6-8.7) g/dL Albumin (3.5-5.2) g/dL Globulin (1.3-4.6) g/dL Influenza Type A A g Negative (Negative) POC Influenza B Ag Negative (Negative) 12/24/19 12/24/19 Range/Units 11:45 11:45 WBC (4.0-10.0) 10^3/ uL RBC (4.1-5.3) 10^6/u L Hgb (11.7-16.6) g/dL Hct (42.0-52.0) % MCV (80-94) fL MCH (28.0-34.0) pg MCHC (30.0-36.0) g/dL RDW (12.1-15.1) % Plt Count (130-400) 10^3/c mm MPV (7.4-10.4) fL Neut % (Auto) % Lymph % (Auto) % Quay % (Auto) % Eos % (Auto) % Baso % (Auto) % Neut # (Auto) (1.8-7.7) 10^3/u L Lymph # (Auto) (0.8-4.8) 10^3/u L Quay # (Auto) (0.2-0.9) 10^3/u L Eos # (Auto) (0.0-0.8) 10^3/u L Baso # (Auto) (0.0-0.1) 10^3/u L Nucleated RBC % (a uto) % Nucleated RBCs # /100WBC D-Dimer 2.09 H (0-0.59) ug/mIFE U Specimen Type Sample Site ABG pH (7.35-7.45) ABG pCO2 (35-45) mmHg ABG pO2 (80.0-100.0) mmH g ABG HCO3 (22-26) mmol/L ABG Base Excess (-2.0-2.0) mmol/ L Gee Test Hematocrit (42-52) % Hgb O2 Saturation (95-100) % Carboxyhemoglobin (0.4-20.1) %THgb Methemoglobin (0.4-1.5) % Total Hemoglobin (14-18) g/dL O2 Delivery Device O2 Liters/Min % Equipment Hire Manager ID Sodium 140 (136-145) mmol/L Potassium 3.7 (3.5-5.1) mmol/L Chloride 91 L (98-107) mmol/L Carbon Dioxide 36 H (22-29) mmol/L Anion Gap 16.7 (5-19) BUN 17 (8-23) mg/dL Creatinine 0.8 (0.7-1.2) mg/dL GFR Calculation 98.0 (90-130) mL/min Glucose 141 H (65-115) mg/dL Calcium 9.8 (8.5-10.5) mg/dL Total Bilirubin 0.2 (0.15-1.2) mg/dL AST 10 (0-40) U/L ALT 10 (0-41) U/L Alkaline Phosphata se 108 (40-130) IU/L NT-Pro-B Natriuret Pep 588 H (0-125) pg/mL Total Protein 7.3 (6.6-8.7) g/dL Albumin 3.5 (3.5-5.2) g/dL Globulin 3.8 (1.3-4.6) g/dL Influenza Type A A g (Negative) POC Influenza B Ag (Negative) Discharge Plan Discharge Patient Disposition: Admitted As Inpatient Admit Provider: Aleta Dover Clinical Impression: Acute exacerbation of chronic obstructive airways disease Condition: Stable Discharge Orders: Discharge Order (Routine); Ordered 12/28/19 Ordered By: Aleta Dover Referrals: [facility] [place] [Outside] Nasreen Gomez PA [Primary Care Provider] - 01/02/20 9:15 am () Discharge Diet: Diabetic Discharge Activity: Resume usual activity Patient Instructions: Prednisone (By mouth), Amlodipine (By mouth), Levofloxacin (By mouth), COPD - Emphysema Interventions: ED Discharge Assessment Last Done: 12/24/19 19:40 Discharge Date/Time: 12/24/19 19:40 Coding Level of Care Code ED Chip Bin Conveyor Tender for Chg Fwd Exam Comprehensive
[2019-12-24 11:54] LABS: Basophils % 0.3 %; Hematocrit 44.1 % (42.0-52.0); Hemoglobin 13.8 g/dL (11.7-16.6); Lymphocytes # 0.5 10^3/uL (0.8-4.8); Mean Corpuscular HGB Conc 31.3 g/dL (30.0-36.0); Mean Corpuscular Hemoglobin 26.4 pg (28.0-34.0); Mean Corpuscular Volume 84.3 fL (80-94); Mean Platelet Volume 10.3 fL (7.4-10.4); Monocytes # 1.3 10^3/uL (0.2-0.9); Monocytes % 12.4 %; Neutrophils # 8.4 10^3/uL (1.8-7.7); Neutrophils % 81.5 %; Nucleated Red Blood Cells % 0 %; Platelet Count 310 10^3/cmm (130-400); Red Blood Count 5.23 10^6/uL (4.1-5.3); Red Cell Distribution Width 16.4 % (12.1-15.1); White Blood Count 10.3 10^3/uL (4.0-10.0)
[2019-12-24 12:18] LABS: Alanine Aminotransferase 10 U/L (0-41); Albumin Level 3.5 g/dL (3.5-5.2); Alkaline Phosphatase 108 IU/L (40-130); Anion Gap 16.7 (5-19); Aspartate Amino Transferase 10 U/L (0-40); Blood Urea Nitrogen 17 mg/dL (8-23); Calcium 9.8 mg/dL (8.5-10.5); Carbon Dioxide 36 mmol/L (22-29); Chloride 91 mmol/L (98-107); Globulin 3.8 g/dL (1.3-4.6); Glucose 141 mg/dL (65-115); NT Pro B Type Natriuretic Pept 588 pg/mL (0-125); Potassium 3.7 mmol/L (3.5-5.1); Sodium 140 mmol/L (136-145); Total Bilirubin 0.2 mg/dL (0.15-1.2); Total Protein 7.3 g/dL (6.6-8.7)
[2019-12-24 12:19] LABS: Influenza A by IFA Negative (Negative); Influenza B by IFA Negative (Negative)
[2019-12-24 12:34] LABS: D Dimer 2.09 ug/mIFEU (0-0.59)
[2019-12-24 13:05] LABS: ABG PH Result 7.39 (7.35-7.45); Base Excess ABG 10.4 mmol/L (-2.0-2.0); Blood Gas Allen Test Pos; Blood Gas Operator Identificat amh; Blood Gas Sample Site Radial, left; Blood Gas Sample Type Arterial; Carboxyhemoglobin 6.6 %THgb (0.4-20.1); HCO3 ABG 37.9 mmol/L (22-26); HGB O2 Sat 80.7 % (95-100); Methemoglobin 0.5 % (0.4-1.5); Oxygen Device NC; PO2 ABG 51.8 mmHg (80.0-100.0)
[2019-12-24 13:07] LABS: ABG PCO2 62.3 mmHg (35-45)
--- NOTE | 2019-12-24 13:11 | CT_ITS ---
WS: [id number] CT CHEST ANGIOGRAPHY WITH REFORMATS HISTORY: shortness of breath TECHNIQUE: Contiguous axial images are obtained through the chest during arterial injection of intrav enous contrast. Images are reconstructed to evaluate the pulmonary arteries. MIP imaging also reviewe d. All CT scans at [facility] use at least one of these dose optimization techniques: aut omated exposure control; mA and/or kV adjustment per patient size (includes targeted exams where dose is matched to clinical indication); or iterative reconstruction. CONTRAST: Omnipaque 350; 95 mL IV. DLP: 603.75 mGy.cm COMPARISON: 10/09/2019 Good opacification of the pulmonary arteries. No filling defects in the pulmonary arteries. Limited c ontrast opacification in the segmental and subsegmental branches in the lower lung [place]. Peripheral pulmonary embolism not excluded. Pulmonary artery is enlarged. Mild atherosclerosis aorta. No aneury sm or dissection. Multilobar tree-in-bud opacifications, greatest involving the lower lungs and RIGHT middle lobe. Ther e are additional areas of bronchiectasis in the RIGHT lower lobe. Subsegmental atelectasis at the nallely g bases. No pleural effusion. No pneumothorax. No adenopathy. Thyroid is substernal. Incompletely visualized cyst in the RIGHT upper abdomen corresponds to a renal cyst previously descri bed. Marked bilateral adrenal thickening and hyperplasia. Similar to prior studies. Proximal jejunal diverticulum. Mild increase in thoracic kyphosis. Mild anterior wedging of T8. CT/CT angio chest PE protcl [id number] IMPRESSION: 1. No pulmonary embolism. 2. Multilobar tree-in-bud opacifications consistent with endobronchial pneumon ia/inflammatory process. 3. Mild cardiomegaly. 4. Chronic emphysema and pulmonary hypertension.
[2019-12-24] MEDS: ipratropium-albuterol 3 mL Neb INHALATION (13:21)
[2019-12-24] MEDS: azithromycin 500 MG in sodium chloride 0.9% 250 ML 250 MG IV (13:59)
[2019-12-24] MEDS: iohexol 350 mg/mL 100 mL Btl IV (14:15)
[2019-12-24] MEDS: morphine 4 mg/mL SDV 1 mL IVP (15:25)
[2019-12-24 16:51] LABS: ABG PH Result 7.33 (7.35-7.45); Base Excess ABG 8.9 mmol/L (-2.0-2.0); Blood Gas Allen Test Pos; Blood Gas Sample Site Radial, left; Blood Gas Sample Type Arterial; HCO3 ABG 37.8 mmol/L (22-26); Oxygen Device OXY MASK; PO2 ABG 72.1 mmHg (80.0-100.0)
[2019-12-24 16:53] LABS: ABG PCO2 72.4 mmHg (35-45)
--- NOTE | 2019-12-24 17:22 | P.HP_ITS ---
Providers/Chief Complaint Admitting Physician: Aleta Dover MD Primary Care Provider: Nasreen Gomez Chief Complaint: shortness of breath History of Present Illness Nagi Cuellar is a 64 year old male with PMHx of Oxygen dependent COPD (5 L at baseline), Severe DAYNE (BiPAP qhs), HTN, CAD s/p stenting, Chronic atrial fibrillation, IDDM type II, Hyperlipidemia; presents from urgent care where he was found to be significantly hypoxic earlier today. Patient had presented th [facility] with symptoms of worsening shortness of breath with decreasing intervals of activity/exertion over the past several days. 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 He was discharged with prescription for hydrocodone and Flexeril. He has some degree of back pain today though his breathing is more an issue. He was found to be saturating in the 70s on his baseline oxygen requirement of about 4 to 5 L. He received a nebulizer treatment as well as a dose of IV steroids. He continued to be hypoxic and was switched to BiPAP. This seemed to work much better in terms of improving his saturation to the 90s. During my bedside assessment in the ER he is on 8 L oxygen mask with a saturation at about 93%. He is significantly diminished though is able to provide a history. Collateral information obtained from medical record review. He is also known to me from a previous admission in May 2019 when he had presented with a GI bleed. Secondary to this event he has been off anticoagulation, had previously been on Eliquis for his history of chronic atrial fibrillation. He has had a chronic cough with increased sputum production, brown and thick, denies any blood. As mentioned earlier he has had increasing shortness of breath with decreasing intervals of activity. He has intermittent lower extremity edema though none currently. He denies any chest pain, fever/chills, abdominal pain, nausea/vomiting. He had some exposure to sick contacts approximately 4 weeks ago when his symptoms initially started and have gradually worsened since then. He has established care with Dr. Corley and was seen on 12/19 with some adjustments made to his inhaler treatments and plan for initiation of pulmonary rehab. Work-up in the ER shows mild leukocytosis with a white count of 10.3, normal CBC, normal chemistry other than blood sugar of 141, ABG shows hypercapnia and hypoxia with a PCO2 of 62.3 and PO2 of 51.8 respectively. D-dimer was elevated at 2.09, CTA is negative for PE though shows evidence of endobronchial pneumonia, chronic emphysema and pulmonary hypertens ion. He has received nebulizer treatments and a dose of azithromycin. Of note he has had multiple COPD exacerbations requiring hospitalization, most recently at the end of November 2019. Due to increased work of breathing, oxygen requirement and acute COPD exacerbation, patient has been admitted to the hospital for further management. Review of Systems Const: Denies: fever, chills or fatigue Eyes: Denies: change in vision ENMT: Reports: dry mouth; Denies: painful swallowing Card: Reports: edema (intermittently, bilateral LE) and shortness of breath on exertion (more SOB with shorter intervals of activity); Denies: chest pain, swelling of feet/ankles or lightheadedness Resp: Reports: shortness of breath, productive cough (brown sputum) and wheezing; Denies: coughing up blood or chest congestion GI: Denies: abdominal pain, nausea, vomiting, vomiting blood, diarrhea, constipation or blood in stool : Denies: painful urination or urinary frequency Musc: Reports: back pain (chronic) Skin/Breast: Denies: rash Neuro: Denies: numbness in extremities or weakness in extremities Psych: Denies: anxiety Medications/Allergies Allergies Allergy/AdvReac Type Severity Reaction Status Date / Time No Known Allergies Allergy Verified 12/21/19 15:57 PFSH Acute PFSH: Medical History (Updated 12/24/19 @ 17:53 by Aleta Dover MD) Atrial fibrillation off AC (Eliquis) due to GI bleed CAD (coronary artery disease) CHF (congestive heart failure) COPD (chronic obstructive pulmonary disease) oxygen dependent, 5 L at baseline Diabetes Heart attack Hypertension DAYNE (obstructive sleep apnea) BiPAP dependent qhs due to severe DAYNE Surgical History H/O hernia repair Family History Mother Lung disease COPD Sister Cancer Social History (Updated 12/24/19 @ 17:39 by Aleta Dover MD) Smoking and tobacco status: former smoker Quit status (tobacco): has quit using tobacco Year quit tobacco: 2020 - 1PPD x 45 Years Alcohol intake: never Substance/Drug Use: never Lives independently: Yes Household members: none Current occupational status: disabled and 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 History of recent travel: No Current gender identity: Male Vitals/I&O/Wt Last Vital Signs Temp 98.8 F 12/24/19 11:19 Pulse 88 12/24/19 13:21 Resp 18 12/24/19 15:25 BP 161/75 12/24/19 11:32 Pulse Ox 93 12/24/19 13:25 12/24/19 12/24/19 12/24/19 06:59 14:59 22:59 Intake Total 250 / 250 Balance 250 / 250 Weight last 48 hrs Weight 181 kg Physical Exam Const: COMMON NORMALS: no apparent distress and oriented x3 GENERAL APPEARANCE: cooperative and comfortable ORIENTATION/CONSCIOUSNESS: Yes awake HENMT: COMMON NORMALS: normocephalic, head/scalp atraumatic and hearing grossly normal bilaterally HEAD & SCALP: normocephalic and atraumatic MOUTH: moist mucous membranes abnormal Details: parched Eye: COMMON NORMALS: PERRL, EOMs intact bilaterally and conjunctivae normal CONJUNCTIVA: Yes conjunctivae normal PUPIL: Yes PERRL Neck/C-Spine: COMMON NORMALS: full ROM GENERAL: Yes normal visual inspection and Yes trachea midline Resp: COMMON NORMALS: no retractions and no use of accessory muscles EFFORT & INSPECTION: Yes able to speak in complete sentences, Yes symmetric chest movement, No tachypneic and Yes prolonged expiratory phase AUSCULTATION: rhonchi and diminished lung sounds (very diminished breath sounds bilaterally) OTHER: -currently on 8 L, oxy-mask Cardio: COMMON NORMALS: regular rate, regular rhythm, S1 normal heart sound, S2 normal heart sound and no murmurs RATE: regular rate RHYTHM: regular rhythm HEART SOUNDS: S1 normal and S2 normal GI: COMMON NORMALS: normal to inspection, nondistended, normoactive bowel sounds, soft to palpation and non-tender INSPECTION: Yes central obesity PALPATION: Yes soft Back/Pelvis: COMMON NORMALS: thoracic and lumbar spine normal to inspection Extremity: COMMON NORMALS: normal to inspection, full ROM and no clubbing, cyanosis or edema; negative for no pedal edema Neuro: COMMON NORMALS: oriented x3, moves all extremities, no focal motor deficits and no sensory deficits noted Psych: COMMON NORMALS: mental status grossly normal, thought process normal, cooperative, affect normal and speech normal SPEECH: Yes normal speech THOUGHT PROCESS: normal thought process Skin: COMMON NORMALS: no rashes or lesions noted, no jaundice, no petechiae and no mottling GENERAL SKIN EXAM: no rashes or lesions noted Data : 12/24/19 11:45 12/24/19 11:45 Micro: Microbiology 12/24/19 11:48 Gram Stain - Final Sputum - Expectorated Sputum 12/24/19 11:45 Blood Culture - Preliminary Blood SPECIMEN COLLECTED 12/24/19 11:40 Blood Culture - Preliminary Blood SPECIMEN COLLECTED A&P Assessment and plan (1) Acute exacerbation of chronic obstructive airways disease: -Has known history of oxygen dependent COPD, 5 L at baseline -Now presenting with acute exacerbation as evidenced by increased oxygen requirement, currently on 8 L via mask, noted diminished breath sounds on auscultation, increased sputum production -Had an acute exacerbation requiring hospitalization at the end of November, he was treated with nebulizers, steroids, no mention of antibiotics at that time. -Has established care with Dr. Corley, first visit was last week. Patient states that he is in the process of being set up with pulmonary rehab -Quit smoking approximately 3 weeks ago -Received nebulizer treatment, dose of azithromycin -Due to diminished breath sounds will start on IV steroids, continue nebulizer treatment; add expectorants -start on Levaquin -CXR shows interstitial lung disease, bronchiectasis -CT chest shows evidence of endobronchial pneumonia as well as chronic emphysema and pulmonary hypertension -Sputum culture pending, gram stain is polymicrobial -f/u blood cx -Mild leukocytosis white count of 10.3 -Monitor respiratory status -Noted ABG showing hypercapnia with a PCO2 of 62.3 and hypoxia with a PO2 of 51.8, patient has chronic hypercapnia -Supplemental oxygen as needed -Due to degree of hypoxia had d-dimer checked in ER which was 2.09, CTA negative for PE Status: Acute Code(s): J44.1 - Chronic obstructive pulmonary disease with (acute) exacerbation (2) Atrial fibrillation: -Currently normal sinus rhythm, heart rate controlled -Resume Cardizem, digoxin -Has been off anticoagulation secondary to GI bleed while on Eliquis in May 2019 -Telemetry monitoring Status: Acute Qualifiers: Atrial fibrillation type: unspecified chronic Qualified Code(s): I48.20 - Chronic atrial fibrillation, unspecified Code(s): I48.91 - Unspecified atrial fibrillation (3) Congestive heart failure: -Clinically does not appear decompensated -has known history of chronic diastolic CHF, last echo shows ejection fraction of 60% with grade 1 diastolic dysfunction (04/2018) -Resume Lasix, potassium Status: Acute Qualifiers: Heart failure type: diastolic Heart failure chronicity: chronic Qualified Code(s): I50.32 - Chronic diastolic (congestive) heart failure Code(s): I50.9 - Heart failure, unspecified (4) Hypertension: -Mildly hypertensive currently likely secondary to decompensation in respiratory status -Continue to monitor vital signs -resume oral antihypertensives Status: Acute Qualifiers: Hypertension type: essential hypertension Qualified Code(s): I10 - Essential (primary) hypertension Code(s): I10 - Essential (primary) hypertension (5) DAYNE (obstructive sleep apnea): -Has known history of severe DAYNE, BiPAP dependent qhs Status: Acute Code(s): G47.33 - Obstructive sleep apnea (adult) (pediatric) (6) Back pain: -Has known history of chronic back pain -recently seen in ED on 12/21 for complaints of low back pain, exacerbated by lifting and moving heavy loads; prescribed hydrocodone and Flexeril which I will continue Status: Acute Qualifiers: Back pain location: low back pain Chronicity: chronic Back pain laterality: bilateral Sciatica presence: unspecified whether sciatica present Qualified Code(s): M54.5 - Low back pain; G89.29 - Other chronic pain Code(s): M54.9 - Dorsalgia, unspecified (7) Diabetes: -most recent A1c-5.8 -Insulin dependent at baseline -Accu-Cheks, scheduled insulin, ISS -Hypoglycemia precautions Status: Acute Qualifiers: Diabetes mellitus type: type 2 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's hospital stay will require greater than 2 midnights for management of acute COPD exacerbation, currently has higher oxygen requirement, on IV steroids and empiric IV antibiotics, needs close monitoring of his respiratory status. Time Spent in Patient Care: Greater than 35 minutes (>than 50% of time spent in counselling and/or direct pt care on unit) . 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 [employer] Diagnoses Acute exacerbation of chronic obstructive airways disease J44.1 Atrial fibrillation I48.20 Atrial fibrillation type: unspecified chronic Congestive heart failure I50.32 Heart failure type: diastolic Heart failure chronicity: chronic Hypertension I10 Hypertension type: essential hypertension DAYNE (obstructive sleep apnea) G47.33 Back pain M54.5; G89.29 Back pain location: low back pain Chronicity: chronic Back pain laterality: bilateral Sciatica presence: unspecified whether sciatica present Diabetes E11.9; Z79.4 Diabetes mellitus type: type 2 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
--- NOTE | 2019-12-24 20:10 | ECG_ITS ---
Measurements Intervals [place] Rate: 89 P: 48 DE: 205 QRS: 60 QRSD: 102 T: 70 QT: 332 QTc: 406 SINUS RHYTHM INCOMPLETE RIGHT BUNDLE BRANCH BLOCK [90+ ms QRS DURATION, TERMINAL R IN V1/V2, 40+ ms S IN I/aVL/V4/V5/V6] Compared to ECG 05/09/2019 10:40:06 T-wave abnormality no longer present Electronically Signed On 12-25-2019 17:31:02 DIGITAL COMPUTER OPERATOR by Krystal Meneses M.D. [email or web address]
[2019-12-24 21:33] LABS: Glucose Point of Care 213 mg/dL (70-110)
[2019-12-24] MEDS: insulin glargine 100 units/1 mL 20 UNIT SUBCUT (21:48)
[2019-12-24] MEDS: HYDROcodone-acetaminophen 5-325 mg Tablet 1 TAB PO (21:49)
[2019-12-24] MEDS: levofloxacin-dextrose 5 % 750 MG/150 ML PREMIX 150 MG IV (21:49)
[2019-12-24] MEDS: cyclobenzaprine 10 mg Tablet 5 MG PO (21:49)
[2019-12-24] MEDS: trazodone 50 mg Tablet PO (21:49)
[2019-12-24] MEDS: FUROsemide 40 mg Tablet PO (21:50)
[2019-12-25] VITALS (14 sets, daily range): BP systolic 127–153; BP diastolic 70–82; PULSE 67–93; RESP 18–24; TEMP 35.8–37.1; O2SAT 88–97
[2019-12-25] MEDS: HYDROcodone-acetaminophen 5-325 mg Tablet 1 TAB PO ×3 (05:55→19:25)
[2019-12-25 06:02] LABS: Basophils % 0.1 %; Hematocrit 38.9 % (42.0-52.0); Lymphocytes # 0.3 10^3/uL (0.8-4.8); Lymphocytes % 3.8 %; Mean Corpuscular HGB Conc 30.8 g/dL (30.0-36.0); Mean Corpuscular Hemoglobin 25.8 pg (28.0-34.0); Mean Corpuscular Volume 83.7 fL (80-94); Mean Platelet Volume 10.2 fL (7.4-10.4); Monocytes # 0.2 10^3/uL (0.2-0.9); Monocytes % 3.2 %; Neutrophils # 6.6 10^3/uL (1.8-7.7); Neutrophils % 92.3 %; Nucleated Red Blood Cells % 0 %; Platelet Count 286 10^3/cmm (130-400); Red Blood Count 4.65 10^6/uL (4.1-5.3); Red Cell Distribution Width 16.2 % (12.1-15.1); White Blood Count 7.1 10^3/uL (4.0-10.0)
[2019-12-25 06:34] LABS: Anion Gap 14.5 (5-19); Blood Urea Nitrogen 23 mg/dL (8-23); Calcium 9.6 mg/dL (8.5-10.5); Carbon Dioxide 33 mmol/L (22-29); Chloride 93 mmol/L (98-107); Glomerular Filtration Rate 114.3 mL/min (90-130); Glucose 160 mg/dL (65-115); Osmolality Calculated 282 mOsm/kg (285-295); Potassium 4.5 mmol/L (3.5-5.1); Sodium 136 mmol/L (136-145)
[2019-12-25 06:43] LABS: Glucose Point of Care 185 mg/dL (70-110)
[2019-12-25] MEDS: atorvastatin 40 mg Tablet PO (09:20)
[2019-12-25] MEDS: pantoprazole DR 40 mg Tablet PO (09:20)
[2019-12-25] MEDS: digoxin 125 mcg Tablet PO (09:20)
[2019-12-25] MEDS: dilTIAZem ER (24HR) 240 mg Capsule PO (09:20)
[2019-12-25] MEDS: roflumilast 500 mcg Tablet PO (09:20)
[2019-12-25] MEDS: FUROsemide 40 mg Tablet PO ×2 (09:20→16:59)
[2019-12-25 10:22] LABS: Glucose Point of Care 476 mg/dL (70-110)
[2019-12-25] MEDS: ipratropium-albuterol 3 mL Neb INHALATION ×3 (10:24→21:09)
[2019-12-25] MEDS: cyclobenzaprine 10 mg Tablet 5 MG PO (10:48)
--- NOTE | 2019-12-25 11:37 | PC.RESP ---
Patient is on evaluation list for Pulmonary Rehab and has attended faithfully in the past.
--- NOTE | 2019-12-25 11:49 | PC.CHAP ---
Pastoral Care Encounter/Spiritual Assessment Type of Contact [] Declined prior authorization nurse visit [] Patient/Family/Request visit [] Outpatient visit [] Follow-up visit [] Physician referral [] Code/Alert [x] Routine visit [] Staff referral [] Actively dying [] Patient sleeping [] Family support [] [] Out of room [] Palliative care [] [] Receiving care in room [] Pre-surgical visit [] Trauma [] Long length of stay [] ICU visit [] Other: Relational/Emotional Strength [] Patient feels connected with others/family/visitors/staff [] Distress [] Loneliness/isolation [] Abandonment Spirituality of Patient [x] Person of Margret [x] Attends Episcopalian of their Margret [] Believes in Prayer [] Reads Bible or Rastafari materials [] There are Spiritual issues to be addressed Procurement Buyer Interventions [x] Prayer [x] Active listening [x] Non-anxious presence [] Spiritual/emotional support [] Crisis/trauma care [] Spiritual counseling [] Bereavement support [] Provided bereavement packet [] Provided Bible/devotional materials [] Provided toy/stuffed animal, coloring book to patient or family member [] Provided Communion [] Anointing/Evans [] Salvation [] Completed spiritual assessment [] Other: Impact on Illness or Injury [] Angry [] Fearful [] Anxious [] Often cries [] Exhaustion [] Unable to work [] Unable to attend pentecostalism [] Unable to walk/stand [] Unable to read [] Unable to drive [] Unable to eat/drink [] Unable to sleep [] Unable to be with family [] Patient intubated [] Other: Summary Time spent with patient 10 min
--- NOTE | 2019-12-25 12:09 | P.PN_ITS ---
Subjective Subjective: Interval history: Has been able to be weaned down to 6 L nasal cannula, AM labs noted, resolved leukocytosis, hemodynamically stable. Noted hyperglycemia likely due to steroids. Patient seen and examined, resting in bed, down to 6 L nasal cannula, saturating at 93%, has been able to expectorate with his cough. Air entry has improved on auscultation. Has been ambulating around the room with decreased exertional dyspnea. Medications: Reviewed: Yes Medication Review Details: Current Medications Generic Name Dose Route Start Last Admin Trade Name Freq PRN Reason Stop Dose Admin Hydrocodone Bitart /Acetaminophen 1 tab 12/24/19 20:10 12/25/19 05:55 [place] 5-325 Mg PO 1 tab Q6H PRN Administration MODERATE TO SEVER E PAIN Albuterol/Ipratrop ium 3 ml 12/24/19 20:10 12/25/19 10:24 Duoneb INHALATION 3 ml Q4H.RESPIRATORY P RN Administration SHORTNESS OF YADIEL TH Atorvastatin Calci um 40 mg 12/25/19 09:00 12/25/19 09:20 Lipitor PO 40 mg DAILY ELLIE Administration Cyclobenzaprine HC l 5 mg 12/24/19 20:10 12/25/19 10:48 Flexeril PO 5 mg TID PRN Administration muscle spasm Digoxin 125 mcg 12/25/19 09:00 12/25/19 09:20 Lanoxin PO 125 mcg DAILY ELLIE Administration Diltiazem HCl 240 mg 12/25/19 09:00 12/25/19 09:20 Cardizem Cd (24h r) PO 240 mg DAILY ELLIE Administration Furosemide 40 mg 12/24/19 20:10 12/25/19 09:20 Lasix PO 40 mg BID ELLIE Administration Insulin Aspart 0 unit 12/24/19 20:10 12/25/19 09:20 Novolog SUBCUT 14 unit WM&BEDTIME ELLIE Administration Protocol Insulin Glargine 20 unit 12/24/19 21:00 12/24/19 21:48 Lantus SUBCUT 20 unit BEDTIME ELLIE Administration Methylprednisolone Sodium Succinate 60 mg 12/24/19 20:10 12/25/19 09:20 Solu-Medrol IVP 60 mg Q6H ELLIE Administration Pantoprazole Sodiu m 40 mg 12/25/19 09:00 12/25/19 09:20 Protonix PO 40 mg DAILY ELLIE Administration Potassium Chloride 20 meq 02/18/20 20:10 12/25/19 09:20 Klor-Con 10 PO 20 meq BID ELLIE Administration Roflumilast 500 mcg 12/25/19 09:00 12/25/19 09:20 Daliresp PO 500 mcg DAILY ELLIE Administration Trazodone HCl 50 mg 12/24/19 21:00 12/24/19 21:49 Desyrel PO 50 mg BEDTIME ELLIE Administration Vitals/I&O/Wt Last Vital Signs Temp 97.9 F 12/25/19 10:57 Pulse 85 12/25/19 10:57 Resp 18 12/25/19 10:57 BP 139/76 12/25/19 10:57 Pulse Ox 93 12/25/19 10:57 12/24/19 12/25/19 12/25/19 22:59 06:59 14:59 Intake Total 600 / 600 200 / 800 240 / 240 Output Total 300 / 300 450 / 450 Balance 600 / 600 -100 / 500 -210 / -210 Weight last 48 hrs Weight 181 kg Physical Exam Const: COMMON NORMALS: no apparent distress and oriented x3 GENERAL APPEARANCE: cooperative and comfortable ORIENTATION/CONSCIOUSNESS: Yes awake HENMT: COMMON NORMALS: normocephalic, head/scalp atraumatic and hearing grossly normal bilaterally HEAD & SCALP: normocephalic and atraumatic MOUTH: moist mucous membranes abnormal Details: parched Eye: COMMON NORMALS: PERRL, EOMs intact bilaterally and conjunctivae normal CONJUNCTIVA: Yes conjunctivae normal PUPIL: Yes PERRL Neck/C-Spine: COMMON NORMALS: full ROM GENERAL: Yes normal visual inspection and Yes trachea midline Resp: COMMON NORMALS: no retractions and no use of accessory muscles EFFORT & INSPECTION: Yes able to speak in complete sentences, Yes symmetric chest movement, No tachypneic and Yes prolonged expiratory phase AUSCULTATION: rhonchi (Improved) and diminished lung sounds (very diminished breath sounds b ilaterally) OTHER: -currently on 6 L NC, improved air entry though still diminished bilaterally Cardio: COMMON NORMALS: regular rate, regular rhythm, S1 normal heart sound, S2 normal heart sound and no murmurs RATE: regular rate RHYTHM: regular rhythm HEART SOUNDS: S1 normal and S2 normal GI: COMMON NORMALS: normal to inspection, nondistended, normoactive bowel sounds, soft to palpation and non-tender INSPECTION: Yes central obesity PALPATION: Yes soft Back/Pelvis: COMMON NORMALS: thoracic and lumbar spine normal to inspection Extremity: COMMON NORMALS: normal to inspection, full ROM and no clubbing, cyanosis or edema; negative for no pedal edema Neuro: COMMON NORMALS: oriented x3, moves all extremities, no focal motor deficits and no sensory deficits noted Psych: COMMON NORMALS: mental status grossly normal, thought process normal, cooperative, affect normal and speech normal SPEECH: Yes normal speech THOUGHT PROCESS: normal thought process Skin: COMMON NORMALS: no rashes or lesions noted, no jaundice, no petechiae and no mottling GENERAL SKIN EXAM: no rashes or lesions noted Data : 12/25/19 05:48 12/25/19 05:48 Micro: Microbiology 12/24/19 11:40 Blood Culture - Preliminary Blood NEGATIVE TO DATE 12/24/19 11:45 Blood Culture - Preliminary Blood NEGATIVE TO DATE 12/24/19 11:48 Gram Stain - Final Sputum - Expectorated Sputum Sputum Culture - Preliminary A&P Assessment and plan (1) Acute exacerbation of chronic obstructive airways disease: -Has known history of oxygen dependent COPD, 5 L at baseline -Now presenting with acute exacerbation as evidenced by increased oxygen requirement, currently on 8 L via mask, noted diminished breath sounds on auscultation, increased sputum production. Oxygen requirement is decreasing gradually -Had an acute exacerbation requiring hospitalization at the end of November, he was treated with nebulizers, steroids, no mention of antibiotics at that time. -Has established care with Dr. Corley, first visit was last week. Patient states that he is in the process of being set up with pulmonary rehab -Quit smoking approximately 3 weeks ago -Received nebulizer treatment, dose of azithromycin -Due to diminished breath sounds will continue on IV steroids, continue nebulizer treatment, expectorants. Noted hyperglycemia but would continue IV steroids for another 24 hours -on Levaquin -CXR shows interstitial lung disease, bronchiectasis -CT chest shows evidence of endobronchial pneumonia as well as chronic emphysema and pulmonary hypertension -Sputum culture pending, gram stain is polymicrobial -blood cx: prelim negative -Mild leukocytosis white count of 10.3 -Monitor respiratory status -Noted ABG showing hypercapnia with a PCO2 of 62.3 and hypoxia with a PO2 of 51.8, patient has chronic hypercapnia -Supplemental oxygen as needed -Due to degree of hypoxia had d-dimer checked in ER which was 2.09, CTA negative for PE Status: Acute Code(s): J44.1 - Chronic obstructive pulmonary disease with (acute) exacerbation (2) Atrial fibrillation: -Currently normal sinus rhythm, heart rate controlled -continue Cardizem, digoxin -Has been off anticoagulation secondary to GI bleed while on Eliquis in May 2019 -Telemetry monitoring Status: Acute Qualifiers: Atrial fibrillation type: unspecified chronic Qualified Code(s): I48.20 - Chronic atrial fibrillation, unspecified Code(s): I48.91 - Unspecified atrial fibrillation (3) Congestive heart failure: -Clinically does not appear decompensated -has known history of chronic diastolic CHF, last echo shows ejection fraction of 60% with grade 1 diastolic dysfunction (04/2018) -Resume Lasix, potassium Status: Acute Qualifiers: Heart failure chronicity: chronic Heart failure type: diastolic Qualified Code(s): I50.32 - Chronic diastolic (congestive) heart failure Code(s): I50.9 - Heart failure, unspecified (4) Hypertension: -Normotensive, continue to monitor vital signs -continue oral antihypertensives Status: Acute Qualifiers: Hypertension type: essential hypertension Qualified Code(s): I10 - Essential (primary) hypertension Code(s): I10 - Essential (primary) hypertension (5) DAYNE (obstructive sleep apnea): -Has known history of severe DAYNE, BiPAP dependent qhs Status: Acute Code(s): G47.33 - Obstructive sleep apnea (adult) (pediatric) (6) Back pain: -Has known history of chronic back pain -recently seen in ED on 12/21 for complaints of low back pain, exacerbated by lifting and moving heavy loads; prescribed hydrocodone and Flexeril which I will continue Status: Acute Qualifiers: Back pain laterality: bilateral Back pain location: low back pain Chronicity: chronic Sciatica presence: unspecified whether sciatica present Qualified Code(s): M54.5 - Low back pain; G89.29 - Other chronic pain Code(s): M54.9 - Dorsalgia, unspecified (7) Diabetes: -most recent A1c-5.8 -Insulin dependent at baseline -Accu-Cheks, scheduled insulin, ISS -Hypoglycemia precautions; hyperglycemic likely secondary to steroids Status: Acute Qualifiers: Diabetes mellitus complication status: without complication 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 use: with fdc use Diabetes mellitus type: type 2 Qualified Code(s): E11.9 - Type 2 diabetes mellitus without complications; Z79.4 - care home (current) use of insulin Code(s): E11.9 - Type 2 diabetes mellitus without complications Additional A&P Information -Morbid obesity -Hx of CAD s/p stenting -GERD; on PPI -Hyperlipidemia; resume statin -CKD stage 2, baseline Cr wnl -diabetic diet as tolerated -GI ppx with PPI -DVT ppx with Lovenox -Dispo: home -Code status: FULL code Attestations Medical Necessity Statement*: Patient requires hospitalization for continued management of acute COPD exacerbation with noted superimposed pneumonia, on IV antibiotics, IV steroids and higher than baseline oxygen requirement. Time Spent in Patient Care: Greater than 35 minutes (>than 50% of time spent in counselling and/or direct pt care on unit) . Coding Level of Care Code Acute Supervisor [facility] Fwd Exam Comprehensive Diagnoses Acute exacerbation of chronic obstructive airways disease J44.1 Atrial fibrillation I48.20 Atrial fibrillation type: unspecified chronic Congestive heart failure I50.32 Heart failure chronicity: chronic Heart failure type: diastolic Hypertension I10 Hypertension type: essential hypertension DAYNE (obstructive sleep apnea) G47.33 Back pain M54.5; G89.29 Back pain laterality: bilateral Back pain location: low back pain Chronicity: chronic Sciatica presence: unspecified whether sciatica present Diabetes E11.9; Z79.4 Diabetes mellitus complication status: without complication Diabetes mellitus fdc insulin use: with termite control technician use Diabetes mellitus type: type 2
[2019-12-25 16:23] LABS: Glucose Point of Care 208 mg/dL (70-110)
[2019-12-25] MEDS: guaiFENesin 100 mg/5 mL UDC 10 mL 400 MG PO (19:26)
[2019-12-25] MEDS: trazodone 50 mg Tablet PO (19:29)
[2019-12-25 20:31] LABS: Glucose Point of Care 250 mg/dL (70-110)
[2019-12-25] MEDS: insulin glargine 100 units/1 mL 20 UNIT SUBCUT (20:33)
[2019-12-25 20:59] LABS: Glucose Point of Care 338 mg/dL (70-110)
[2019-12-26] VITALS (17 sets, daily range): BP systolic 130–161; BP diastolic 60–90; PULSE 73–105; RESP 17–22; TEMP 36.4–36.7; O2SAT 88–94
[2019-12-26] MEDS: HYDROcodone-acetaminophen 5-325 mg Tablet 1 TAB PO ×3 (01:56→17:33)
[2019-12-26 06:51] LABS: Glucose Point of Care 222 mg/dL (70-110)
[2019-12-26] MEDS: ipratropium-albuterol 3 mL Neb INHALATION ×4 (07:49→20:26)
[2019-12-26] MEDS: dilTIAZem ER (24HR) 240 mg Capsule PO (08:39)
[2019-12-26] MEDS: FUROsemide 40 mg Tablet PO ×2 (08:39→17:33)
[2019-12-26] MEDS: digoxin 125 mcg Tablet PO (08:39)
[2019-12-26] MEDS: atorvastatin 40 mg Tablet PO (08:39)
[2019-12-26] MEDS: pantoprazole DR 40 mg Tablet PO (08:39)
[2019-12-26] MEDS: roflumilast 500 mcg Tablet PO (08:39)
--- NOTE | 2019-12-26 10:00 | PM.PN ---
Subjective Subjective: Interval history: Remains on 6 L NC. Had 1820 mL urine output overnight. Patient seen and examined, continues to have cough with increased expectoration. Air entry is improving. Dyspnea is decreasing with exertion. Will discontinue IV steroids and start on oral prednisone. Levaquin restarted, seems to have fallen off the EMR. Medications: Reviewed: Yes Medication Review Details: Current Medications Generic Name Dose Route Start Last Admin Trade Name Freq PRN Reason Stop Dose Admin Hydrocodone Bitart /Acetaminophen 1 tab 12/24/19 20:10 12/26/19 01:56 [place] 5-325 Mg PO 1 tab Q6H PRN Administration MODERATE TO SEVER E PAIN Albuterol/Ipratrop ium 3 ml 12/24/19 20:10 12/26/19 07:49 Duoneb INHALATION 3 ml Q4H.RESPIRATORY P RN Administration SHORTNESS OF YADIEL TH Atorvastatin Calci um 40 mg 12/25/19 09:00 12/26/19 08:39 Lipitor PO 40 mg DAILY ELLIE Administration Cyclobenzaprine HC l 5 mg 12/24/19 20:10 12/25/19 10:48 Flexeril PO 5 mg TID PRN Administration muscle spasm Digoxin 125 mcg 12/25/19 09:00 12/26/19 08:39 Lanoxin PO 125 mcg DAILY ELLIE Administration Diltiazem HCl 240 mg 12/25/19 09:00 12/26/19 08:39 Cardizem Cd (24h r) PO 240 mg DAILY ELLIE Administration Furosemide 40 mg 12/24/19 20:10 12/26/19 08:39 Lasix PO 40 mg BID ELLIE Administration Guaifenesin 400 mg 12/24/19 20:10 12/25/19 19:26 Robitussin Oral Liq PO 400 mg Q4H PRN Administration Cough Insulin Aspart 0 unit 12/24/19 20:10 12/26/19 08:40 Novolog SUBCUT 6 unit WM&BEDTIME ELLIE Administration Protocol Insulin Glargine 20 unit 12/24/19 21:00 12/25/19 20:33 Lantus SUBCUT 20 unit BEDTIME ELLIE Administration Methylprednisolone Sodium Succinate 60 mg 12/24/19 20:10 12/26/19 08:38 Solu-Medrol IVP 60 mg Q6H ELLIE Administration Pantoprazole Sodiu m 40 mg 12/25/19 09:00 12/26/19 08:39 Protonix PO 40 mg DAILY ELLIE Administration Potassium Chloride 20 meq 12/24/19 20:10 12/26/19 08:39 Klor-Con 10 PO 20 meq BID ELLIE Administration Roflumilast 500 mcg 12/25/19 09:00 12/26/19 08:39 Daliresp PO 500 mcg DAILY ELLIE Administration Trazodone HCl 50 mg 12/24/19 21:00 12/25/19 19:29 Desyrel PO 50 mg BEDTIME ELLIE Administration Vitals/I&O/Wt Last Vital Signs Temp 97.7 F 12/26/19 07:43 Pulse 81 12/26/19 08:39 Resp 18 12/26/19 07:49 BP 158/90 12/26/19 07:43 Pulse Ox 92 12/26/19 07:49 12/25/19 12/26/19 12/26/19 22:59 06:59 14:59 Intake Total 360 / 840 360 / 360 Output Total 1900 / 3375 1170 / 4545 Balance -1540 / -2535 -1170 / -3705 360 / 360 Weight last 48 hrs Weight 181 kg Physical Exam Const: COMMON NORMALS: no apparent distress and oriented x3 GENERAL APPEARANCE: cooperative and comfortable ORIENTATION/CONSCIOUSNESS: Yes awake HENMT: COMMON NORMALS: normocephalic, head/scalp atraumatic and hearing grossly normal bilaterally HEAD & SCALP: normocephalic and atraumatic MOUTH: moist mucous membranes abnormal Details: parched Eye: COMMON NORMALS: PERRL, EOMs intact bilaterally and conjunctivae normal CONJUNCTIVA: Yes conjunctivae normal PUPIL: Yes PERRL Neck/C-Spine: COMMON NORMALS: full ROM GENERAL: Yes normal visual inspection and Yes trachea midline Resp: COMMON NORMALS: no retractions and no use of accessory muscles EFFORT & INSPECTION: Yes able to speak in complete sentences, Yes symmetric chest movement, No tachypneic and Yes prolonged expiratory phase AUSCULTATION: rhonchi (Improved) and diminished lung sounds (very diminished breath sounds bilaterally) OTHER: -currently on 6 L NC, improved air entry though still diminished bilaterally Cardio: COMMON NORMALS: regular rate, regular rhythm, S1 normal heart sound, S2 normal heart sound and no murmurs RATE: regular rate RHYTHM: regular rhythm HEART SOUNDS: S1 normal and S2 normal GI: COMMON NORMALS: normal to inspection, nondistended, normoactive bowel sounds, soft to palpation and non-tender INSPECTION: Yes central obesity PALPATION: Yes soft Back/Pelvis: COMMON NORMALS: thoracic and lumbar spine normal to inspection Extremity: COMMON NORMALS: normal to inspection, full ROM and no clubbing, cyanosis or edema; negative for no pedal edema Neuro: COMMON NORMALS: oriented x3, moves all extremities, no focal motor deficits and no sensory deficits noted Psych: COMMON NORMALS: mental status grossly normal, thought process normal, cooperative, affect normal and speech normal SPEECH: Yes normal speech THOUGHT PROCESS: normal thought process Skin: COMMON NORMALS: no rashes or lesions noted, no jaundice, no petechiae and no mottling GENERAL SKIN EXAM: no rashes or lesions noted Data : 12/25/19 05:48 12/25/19 05:48 Micro: Microbiology 12/24/19 11:48 Gram Stain - Final Sputum - Expectorated Sputum Sputum Culture - Preliminary 12/24/19 11:40 Blood Culture - Preliminary Blood NEGATIVE TO DATE 12/24/19 11:45 Blood Culture - Preliminary Blood NEGATIVE TO DATE A&P Assessment and plan (1) Acute exacerbation of chronic obstructive airways disease: -Has known history of oxygen dependent COPD, 5 L at baseline -Now presenting with acute exacerbation as evidenced by increased oxygen requirement, noted diminished breath sounds on auscultation, increased sputum production. Oxygen requirement is decreasing gradually -Had an acute exacerbation requiring hospitalization at the end of November, he was treated with nebulizers, steroids, no mention of antibiotics at that time. -Has established care with Dr. Corley, first visit was last week. Patient states that he is in the process of being set up with pulmonary rehab -Quit smoking approximately 3 weeks ago -Received nebulizer treatment, dose of azithromycin -Due to diminished breath sounds will continue on IV steroids, continue nebulizer treatment, expectorants. Will switch to oral prednisone -on Levaquin -CXR shows interstitial lung disease, bronchiectasis -CT chest shows evidence of endobronchial pneumonia as well as chronic emphysema and pulmonary hypertension -Sputum culture pending, gram stain is polymicrobial -blood cx: prelim negative -leukocytosis resolved -continue to monitor respiratory status -Noted ABG showing hypercapnia with a PCO2 of 62.3 and hypoxia with a PO2 of 51.8, patient has chronic hypercapnia -Supplemental oxygen as needed -Due to degree of hypoxia had d-dimer checked in ER which was 2.09, CTA negative for PE Status: Acute Code(s): J44.1 - Chronic obstructive pulmonary disease with (acute) exacerbation (2) Atrial fibrillation: -Currently normal sinus rhythm, heart rate controlled -continue Cardizem, digoxin -Has been off anticoagulation secondary to GI bleed while on Eliquis in May 2019 -Telemetry monitoring Status: Chronic Qualifiers: Atrial fibrillation type: unspecified chronic Qualified Code(s): I48.20 - Chronic atrial fibrillation, unspecified Code(s): I48.91 - Unspecified atrial fibrillation (3) Congestive heart failure: -Clinically does not appear decompensated -has known history of chronic diastolic CHF, last echo shows ejection fraction of 60% with grade 1 diastolic dysfunction (04/2018) -continue Lasix, potassium Status: Acute Qualifiers: Heart failure chronicity: chronic Heart failure type: diastolic Qualified Code(s): I50.32 - Chronic diastolic (congestive) heart failure Code(s): I50.9 - Heart failure, unspecified (4) Hypertension: -Normotensive, continue to monitor vital signs -continue oral antihypertensives Status: Chronic Qualifiers: Hypertension type: essential hypertension Qualified Code(s): I10 - Essential (primary) hypertension Code(s): I10 - Essential (primary) hypertension (5) DAYNE (obstructive sleep apnea): -Has known history of severe DAYNE, BiPAP dependent qhs Status: Chronic Code(s): G47.33 - Obstructive sleep apnea (adult) (pediatric) (6) Back pain: -Has known history of chronic back pain -recently seen in ED on 12/21 for complaints of low back pain, exacerbated by lifting and moving heavy loads; prescribed hydrocodone and Flexeril which have been continued -will add lidocaine patch and voltaren topical due to worsening back pain with coughing Status: Chronic Qualifiers: Back pain laterality: bilateral Back pain location: low back pain Chronicity: chronic Sciatica presence: unspecified whether sciatica present Qualified Code(s): M54.5 - Low back pain; G89.29 - Other chronic pain Code(s): M54.9 - Dorsalgia, unspecified (7) Diabetes: -most recent A1c-5.8 -Insulin dependent at baseline -Accu-Cheks, scheduled insulin, ISS -Hypoglycemia precautions; hyperglycemic likely secondary to steroids Status: Chronic Qualifiers: Diabetes mellitus complication status: without complication Diabetes mellitus jail insulin use: with jail use Diabetes mellitus type: type 2 Qualified Code(s): E11.9 - Type 2 diabetes mellitus without complications; Z79.4 - retirement (current) use of insulin Code(s): E11.9 - Type 2 diabetes mellitus without complications Additional A&P Information -Morbid obesity -Hx of CAD s/p stenting -GERD; on PPI -Hyperlipidemia; continue statin -CKD stage 2, baseline Cr wnl -diabetic diet as tolerated -GI ppx with PPI -DVT ppx with Lovenox -Dispo: home -Code status: FULL code Attestations Medical Necessity Statement*: Patient requires hospitalization for continued treatment of acute COPD exacerbation and pneumonia, on IV antibiotics, will switch to oral steroids today. Time Spent in Patient Care: Greater than 35 minutes (>than 50% of time spent in counselling and/or direct pt care on unit). Coding Level of Care Code Acute Health Concierge for [facility] Fwd Exam Comprehensive Diagnoses Acute exacerbation of chronic obstructive airways disease J44.1 Atrial fibrillation I48.20 Atrial fibrillation type: unspecified chronic Congestive heart failure I50.32 Heart failure chronicity: chronic Heart failure type: diastolic Hypertension I10 Hypertension type: essential hypertension DAYNE (obstructive sleep apnea) G47.33 Back pain M54.5; G89.29 Back pain laterality: bilateral Back pain location: low back pain Chronicity: chronic Sciatica presence: unspecified whether sciatica present Diabetes E11.9; Z79.4 Diabetes mellitus complication status: without complication 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
[2019-12-26] MEDS: levofloxacin-dextrose 5 % 750 MG/150 ML PREMIX 150 MG IV (11:12)
[2019-12-26 11:22] LABS: Glucose Point of Care 305 mg/dL (70-110)
[2019-12-26] MEDS: predniSONE 20 mg Tablet 60 MG PO (15:19)
[2019-12-26 17:29] LABS: Glucose Point of Care 242 mg/dL (70-110)
[2019-12-26] MEDS: cyclobenzaprine 10 mg Tablet 5 MG PO (17:33)
[2019-12-26] MEDS: trazodone 50 mg Tablet PO (20:09)
[2019-12-26] MEDS: lidocaine 5% Patch 1 PATCH TOPICAL (20:10)
[2019-12-26] MEDS: insulin glargine 100 units/1 mL 20 UNIT SUBCUT (20:19)
[2019-12-26 20:31] LABS: Glucose Point of Care 363 mg/dL (70-110)
[2019-12-27] VITALS (18 sets, daily range): BP systolic 154–175; BP diastolic 82–93; PULSE 70–99; RESP 17–20; TEMP 36.2–36.9; O2SAT 91–96
[2019-12-27] MEDS: HYDROcodone-acetaminophen 5-325 mg Tablet 1 TAB PO ×3 (03:45→22:14)
[2019-12-27] MEDS: guaiFENesin 100 mg/5 mL UDC 10 mL 400 MG PO (03:45)
[2019-12-27] MEDS: cyclobenzaprine 10 mg Tablet 5 MG PO (03:46)
[2019-12-27 06:25] LABS: Glucose Point of Care 223 mg/dL (70-110)
[2019-12-27] MEDS: pantoprazole DR 40 mg Tablet PO (08:40)
[2019-12-27] MEDS: roflumilast 500 mcg Tablet PO (08:40)
[2019-12-27] MEDS: dilTIAZem ER (24HR) 240 mg Capsule PO (08:41)
[2019-12-27] MEDS: predniSONE 20 mg Tablet 60 MG PO (08:41)
[2019-12-27] MEDS: atorvastatin 40 mg Tablet PO (08:41)
[2019-12-27] MEDS: digoxin 125 mcg Tablet PO (08:42)
[2019-12-27] MEDS: FUROsemide 40 mg Tablet PO ×2 (08:44→17:47)
[2019-12-27 10:58] LABS: Glucose Point of Care 188 mg/dL (70-110)
[2019-12-27] MEDS: levoFLOXacin 750 mg Tablet PO (11:11)
[2019-12-27] MEDS: amlodipine 5 mg Tablet 2.5 MG PO (11:12)
[2019-12-27] MEDS: lidocaine 5% Patch 1 PATCH TOPICAL ×2 (11:23→22:15)
--- NOTE | 2019-12-27 11:25 | PC.NURSE ---
pt had already removed lidocaine patch when this nurse went in to remove it at scheduled time. stated it was on his lower back.
[2019-12-27] MEDS: ipratropium-albuterol 3 mL Neb INHALATION ×4 (11:30→23:32)
--- NOTE | 2019-12-27 13:49 | PC.SOCIAL ---
Pg 2 IMM Explained to pt Pg 2 IMM. Pt verbally understands & signed. No questions voiced. Provided a copy to pt & left on pt's bedside table. Signed, dated, & timed, then placed in chart.
--- NOTE | 2019-12-27 14:54 | P.PN_ITS ---
Subjective Subjective: Interval history: Patient seen and examined, resting in bed, continues to have productive cough with sputum that is clearing up. Remains on 5 L nasal cannula, continues to ambulate as tolerated. Does not feel comfortable or ready to go home today. No acute overnight events reported. Had 1750 mL urine output overnight. Vitals/I&O/Wt Last Vital Signs Temp 97.2 F L 12/27/19 11:38 Pulse 89 12/27/19 11:38 Resp 18 12/27/19 11:38 BP 164/90 12/27/19 11:38 Pulse Ox 91 12/27/19 11:38 12/26/19 12/27/19 12/27/19 22:59 06:59 14:59 Intake Total 1920 / 2880 1200 / 4080 1080 / 1080 Output Total 1150 / 1900 1600 / 3500 750 / 750 Balance 770 / 980 -400 / 580 330 / 330 Physical Exam Const: COMMON NORMALS: no apparent distress and oriented x3 GENERAL APPEARANCE: cooperative and comfortable ORIENTATION/CONSCIOUSNESS: Yes awake HENMT: COMMON NORMALS: normocephalic, head/scalp atraumatic and hearing grossly normal bilaterally HEAD & SCALP: normocephalic and atraumatic MOUTH: moist mucous membranes abnormal Details: parched Eye: COMMON NORMALS: PERRL, EOMs intact bilaterally and conjunctivae normal CONJUNCTIVA: Yes conjunctivae normal PUPIL: Yes PERRL Neck/C-Spine: COMMON NORMALS: full ROM GENERAL: Yes normal visual inspection and Yes trachea midline Resp: COMMON NORMALS: no retractions and no use of accessory muscles EFFORT & INSPECTION: Yes able to speak in complete sentences, Yes symmetric chest movement, No tachypneic and Yes prolonged expiratory phase AUSCULTATION: rhonchi (Improved) and diminished lung sounds (very diminished breath sounds bilaterally) OTHER: -currently on 5 L NC, improved air entry though still diminished bilaterally Cardio: COMMON NORMALS: regular rate, regular rhythm, S1 normal heart sound, S2 normal heart sound and no murmurs RATE: regular rate RHYTHM: regular rhythm HEART SOUNDS: S1 normal and S2 normal GI: COMMON NORMALS: normal to inspection, nondistended, normoactive bowel sounds, soft to palpation and non-tender INSPECTION: Yes central obesity PALPATION: Yes soft Back/Pelvis: COMMON NORMALS: thoracic and lumbar spine normal to inspection Extremity: COMMON NORMALS: normal to inspection, full ROM and no clubbing, cyanosis or edema; negative for no pedal edema Neuro: COMMON NORMALS: oriented x3, moves all extremities, no focal motor deficits and no sensory deficits noted Psych: COMMON NORMALS: mental status grossly normal, thought process normal, cooperative, affect normal and speech normal SPEECH: Yes normal speech THOUGHT PROCESS: normal thought process Skin: COMMON NORMALS: no rashes or lesions noted, no jaundice, no petechiae and no mottling GENERAL SKIN EXAM: no rashes or lesions noted Data : 12/25/19 05:48 12/25/19 05:48 Micro: Microbiology 12/24/19 11:48 Gram Stain - Final Sputum - Expectorated Sputum Sputum Culture - Final Moraxella catarrhalis A&P Assessment and plan (1) Acute exacerbation of chronic obstructive airways disease: -Has known history of oxygen dependent COPD, 5 L at baseline -Now presenting with acute exacerbation as evidenced by increased oxygen requirement, noted diminished breath sounds on auscultation, increased sputum production. Oxygen requirement is decreasing gradually -Had an acute exacerbation requiring hospitalization at the end of November, he was treated with nebulizers, steroids, no mention of antibiotics at that time. -Has established care with Dr. Corley, first visit was last week. Patient states that he is in the process of being set up with pulmonary rehab -Quit smoking approximately 3 weeks ago -Received nebulizer treatment, dose of azithromycin -Due to diminished breath sounds will continue on IV steroids, continue nebulizer treatment, expectorants. Will switch to oral prednisone -on Levaquin -CXR shows interstitial lung disease, bronchiectasis -CT chest shows evidence of endobronchial pneumonia as well as chronic emphysema and pulmonary hypertension -Sputum culture pending, gram stain is polymicrobial -blood cx: prelim negative -leukocytosis resolved -continue to monitor respiratory status -Noted ABG showing hypercapnia with a PCO2 of 62.3 and hypoxia with a PO2 of 51.8, patient has chronic hypercapnia -Supplemental oxygen as needed -Due to degree of hypoxia had d-dimer checked in ER which was 2.09, CTA negative for PE Status: Acute Code(s): J44.1 - Chronic obstructive pulmonary disease with (acute) exacerbation (2) Atrial fibrillation: -Currently normal sinus rhythm, heart rate controlled -continue Cardizem, digoxin -Has been off anticoagulation secondary to GI bleed while on Eliquis in May 2019 -Telemetry monitoring Status: Chronic Qualifiers: Atrial fibrillation type: unspecified chronic Qualified Code(s): I48.20 - Chronic atrial fibrillation, unspecified Code(s): I48.91 - Unspecified atrial fibrillation (3) Congestive heart failure: -Clinically does not appear decompensated -has known history of chronic diastolic CHF, last echo shows ejection fraction of 60% with grade 1 diastolic dysfunction (04/2018) -continue Lasix, potassium Status: Acute Qualifiers: Heart failure chronicity: chronic Heart failure type: diastolic Qu alified Code(s): I50.32 - Chronic diastolic (congestive) heart failure Code(s): I50.9 - Heart failure, unspecified (4) Hypertension: -Normotensive, continue to monitor vital signs -continue oral antihypertensives Status: Chronic Qualifiers: Hypertension type: essential hypertension Qualified Code(s): I10 - Essential (primary) hypertension Code(s): I10 - Essential (primary) hypertension (5) DAYNE (obstructive sleep apnea): -Has known history of severe DAYNE, BiPAP dependent qhs Status: Chronic Code(s): G47.33 - Obstructive sleep apnea (adult) (pediatric) (6) Back pain: -Has known history of chronic back pain -recently seen in ED on 12/21 for complaints of low back pain, exacerbated by lifting and moving heavy loads; prescribed hydrocodone and Flexeril which have been continued -will add lidocaine patch and voltaren topical due to worsening back pain with coughing Status: Chronic Qualifiers: Back pain laterality: bilateral Back pain location: low back pain C hronicity: chronic Sciatica presence: unspecified whether sciatica present Qualified Code(s): M54.5 - Low back pain; G89.29 - Other chronic pain Code(s): M54.9 - Dorsalgia, unspecified (7) Diabetes: -most recent A1c-5.8 -Insulin dependent at baseline -Accu-Cheks, scheduled insulin, ISS -Hypoglycemia precautions; hyperglycemic likely secondary to steroids Status: Chronic Qualifiers: Diabetes mellitus type: type 2 Diabetes mellitus halfway insulin use: with halfway use Diabetes mellitus complication status: without complication Qualified Code(s): E11.9 - Type 2 diabetes mellitus without complications; 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 Time Spent in Patient Care: Greater than 35 minutes (>than 50% of time spent in counselling and/or direct pt care on unit) . 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[employer] Diagnoses Acute exacerbation of chronic obstructive airways disease J44.1 Atrial fibrillation I48.20 Atrial fibrillation type: unspecified chronic Congestive heart failure I50.32 Heart failure chronicity: chronic Heart failure type: diastolic Hypertension I10 Hypertension type: essential hypertension DAYNE (obstructive sleep apnea) G47.33 Back pain M54.5; G89.29 Back pain laterality: bilateral Back pain location: low back pain Chronicity: chronic Sciatica presence: unspecified whether sciatica present Diabetes E11.9; Z79.4 Diabetes mellitus type: type 2 Diabetes mellitus terminal system operator insulin use: with terminal system operator use Diabetes mellitus complication status: without complication
[2019-12-27 16:52] LABS: Glucose Point of Care 284 mg/dL (70-110)
[2019-12-27 21:23] LABS: Glucose Point of Care 276 mg/dL (70-110)
[2019-12-27] MEDS: trazodone 50 mg Tablet PO (22:15)
[2019-12-27] MEDS: insulin glargine 100 units/1 mL 20 UNIT SUBCUT (22:17)
[2019-12-28] VITALS (8 sets, daily range): BP systolic 136–170; BP diastolic 76–92; PULSE 72–97; RESP 17–19; TEMP 36.7–37.2; O2SAT 75–96
[2019-12-28] MEDS: HYDROcodone-acetaminophen 5-325 mg Tablet 1 TAB PO (06:15)
[2019-12-28 06:40] LABS: Glucose Point of Care 94 mg/dL (70-110)
[2019-12-28 06:40] LABS: Glucose Point of Care 89 mg/dL (70-110)
[2019-12-28] MEDS: ipratropium-albuterol 3 mL Neb INHALATION (08:18)
[2019-12-28] MEDS: digoxin 125 mcg Tablet PO (09:35)
[2019-12-28] MEDS: amlodipine 5 mg Tablet 2.5 MG PO (09:35)
[2019-12-28] MEDS: pantoprazole DR 40 mg Tablet PO (09:35)
[2019-12-28] MEDS: levoFLOXacin 750 mg Tablet PO (09:36)
[2019-12-28] MEDS: FUROsemide 40 mg Tablet PO (09:36)
[2019-12-28] MEDS: atorvastatin 40 mg Tablet PO (09:36)
[2019-12-28] MEDS: dilTIAZem ER (24HR) 240 mg Capsule PO (09:36)
[2019-12-28] MEDS: roflumilast 500 mcg Tablet PO (09:36)
[2019-12-28] MEDS: predniSONE 20 mg Tablet 60 MG PO (09:41)
--- NOTE | 2019-12-28 09:44 | PM.DCS ---
Discharge Providers Date of Admission: 12/24/19 15:04 Date of Discharge: December 28, 2019 Attending Provider at Admission: Aleta Dover MD Attending Provider at Discharge: Aleta Dover MD Primary Care Provider: Nasreen Gomez Diagnoses at Discharge Discharge Diagnosis (1) Acute exacerbation of chronic obstructive airways disease: Status: Acute Problem details: -Has known history of oxygen dependent COPD, 5 L at baseline -Now presenting with acute exacerbation as evidenced by increased oxygen requirement, noted diminished breath sounds on auscultation, increased sputum production. Oxygen requirement is decreasing gradually -Had an acute exacerbation requiring hospitalization at the end of November, he was treated with nebulizers, steroids, no mention of antibiotics at that time. -Has established care with Dr. Corley, first visit was last week. Patient states that he is in the process of being set up with pulmonary rehab -Quit smoking approximately 3 weeks ago -Received nebulizer treatment, dose of azithromycin -Due to diminished breath sounds will continue on IV steroids, continue nebulizer treatment, expectorants. Will switch to oral prednisone -on Levaquin -CXR shows interstitial lung disease, bronchiectasis -CT chest shows evidence of endobronchial pneumonia as well as chronic emphysema and pulmonary hypertension -Sputum culture pending, gram stain is polymicrobial -blood cx: prelim negative -leukocytosis resolved -continue to monitor respiratory status -Noted ABG showing hypercapnia with a PCO2 of 62.3 and hypoxia with a PO2 of 51.8, patient has chronic hypercapnia -Supplemental oxygen as needed -Due to degree of hypoxia had d-dimer checked in ER which was 2.09, CTA negative for PE (2) Atrial fibrillation: Status: Chronic Problem details: -Currently normal sinus rhythm, heart rate controlled -continue Cardizem, digoxin -Has been off anticoagulation secondary to GI bleed while on Eliquis in May 2019 -Telemetry monitoring Qualifiers: Atrial fibrillation type: unspecified chronic Qualified Code(s): I48.20 - Chronic atrial fibrillation, unspecified (3) Congestive heart failure: Status: Acute Problem details: -Clinically does not appear decompensated -has known history of chronic diastolic CHF, last echo shows ejection fraction of 60% with grade 1 diastolic dysfunction (04/2018) -continue Lasix, potassium Qualifiers: Heart failure chronicity: chronic Heart failure type: diastolic Qualified Code(s): I50.32 - Chronic diastolic (congestive) heart failure (4) Hypertension: Status: Chronic Problem details: -hypertensive, continue to monitor vital signs -continue oral antihypertensives; increased dose of amlodipine Qualifiers: Hypertension type: essential hypertension Qualified Code(s): I10 - Essential (primary) hypertension (5) DAYNE (obstructive sleep apnea): Status: Chronic Problem details: BiPAP dependent qhs due to severe DAYNE (6) Back pain: Status: Chronic Problem details: -Has known history of chronic back pain -recently seen in ED on 12/21 for complaints of low back pain, exacerbated by lifting and moving heavy loads; prescribed hydrocodone and Flexeril which have been continued -will add lidocaine patch and voltaren topical due to worsening back pain with coughing Qualifiers: Back pain laterality: bilateral Back pain location: low back pain Chronicity: chronic Sciatica presence: unspecified whether sciatica present Qualified Code(s): M54.5 - Low back pain; G89.29 - Other chronic pain (7) Diabetes: Status: Chronic Problem details: -most recent A1c-5.8 -Insulin dependent at baseline -Accu-Cheks, scheduled insulin, ISS -Hypoglycemia precautions; hyperglycemic likely secondary to steroids Qualifiers: Diabetes mellitus type: type 2 Diabetes mellitus 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 Diabetes mellitus complication status: without complication Qualified Code(s): E11.9 - Type 2 diabetes mellitus without complications; 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 He has gradually improved with the aforementioned treatment in addition to supplemental oxygen and nebulizer treatments. Air entry has improved overall though he still diminished bilaterally on auscultation. He has been weaned down to his baseline oxygen requirement of 5 L. He has been weaned off IV steroids and is on oral prednisone. He was initially on IV Levaquin which I have switched to oral as well. He will continue steroids and antibiotics for several more days to complete the treatment course. He is counseled on need to continue to be compliant with his oxygen and BiPAP at night. He is to follow-up with his primary care provider within 1 week and to continue to follow-up with Dr. Corley. He is also counseled on need to seek medical attention immediately should any of his symptoms worsen or persist after completion of treatment. He is encouraged to continue smoking cessation. Discharge Summary: -Patient to follow-up with his primary care provider within 1 week -Patient to continue to follow-up with Dr. Corley Physical Exam Const: COMMON NORMALS: no apparent distress and oriented x3 GENERAL APPEARANCE: cooperative and comfortable ORIENTATION/CONSCIOUSNESS: Yes awake HENMT: COMMON NORMALS: normocephalic, head/scalp atraumatic and hearing grossly normal bilaterally HEAD & SCALP: normocephalic and atraumatic MOUTH: moist mucous membranes abnormal Details: parched Eye: COMMON NORMALS: PERRL, EOMs intact bilaterally and conjunctivae normal CONJUNCTIVA: Yes conjunctivae normal PUPIL: Yes PERRL Neck/C-Spine: COMMON NORMALS: full ROM GENERAL: Yes normal visual inspection and Yes trachea midline Resp: COMMON NORMALS: no retractions and no use of accessory muscles EFFORT & INSPECTION: Yes able to speak in complete sentences, Yes symmetric chest movement, No tachypneic and Yes prolonged expiratory phase AUSCULTATION: rhonchi (Improved) and diminished lung sounds (very diminished breath sounds bilaterally) OTHER: -currently on 5 L NC, improved air entry though still diminished bilaterally Cardio: COMMON NORMALS: regular rate, regular rhythm, S1 normal heart sound, S2 normal heart sound and no murmurs RATE: regular rate RHYTHM: regular rhythm HEART SOUNDS: S1 normal and S2 normal GI: COMMON NORMALS: normal to inspection, nondistended, normoactive bowel sounds, soft to palpation and non-tender INSPECTION: Yes central obesity PALPATION: Yes soft Back/Pelvis: COMMON NORMALS: thoracic and lumbar spine normal to inspection Extremity: COMMON NORMALS: normal to inspection, full ROM and no clubbing, cyanosis or edema; negative for no pedal edema Neuro: COMMON NORMALS: oriented x3, moves all extremities, no focal motor deficits and no sensory deficits noted Psych: COMMON NORMALS: mental status grossly normal, thought process normal, cooperative, affect normal and speech normal SPEECH: Yes normal speech THOUGHT PROCESS: normal thought process Skin: COMMON NORMALS: no rashes or lesions noted, no jaundice, no petechiae and no mottling GENERAL SKIN EXAM: no rashes or lesions noted Discharge Data Data Completed and Pending: Completed Studies During Hospitalization Category Date Time Status CT angio chest PE protcl [id number] Stat Cat Scan 12/24/19 13:11 Completed XR chest 1V aftab ble [id number] Urgent Exams 12/24/19 11:29 Completed Pending at discharge Category Date Time Status Blood Culture Sta t Lab 12/24/19 11:45 Results Labs from last 24 hours 12/28/19 12/28/19 12/27/19 06:37 06:35 21:04 POC Glucose 94 89 276 12/27/19 12/27/19 16:36 10:52 POC Glucose 284 188 Vitals: Last Vital Signs Temp 98.2 F 12/28/19 08:00 Pulse 93 12/28/19 09:35 Resp 17 12/28/19 08:18 BP 170/92 12/28/19 08:00 Pulse Ox 96 12/28/19 08:18 Discharge Plan Discharge Patient Disposition: Home, Self-Care Condition: Stable Prescriptions: New amlodipine 5 mg Tablet 5 mg PO DAILY 30 Days Qty: 30 RF: 0 levofloxacin 750 mg Tablet 750 mg PO DAILY 7 Days Qty: 7 RF: 0 prednisone 20 mg Tablet 40 mg PO DAILY 5 Days Qty: 10 RF: 0 Continued Trelegy Ellipta 100-62.5-25 mcg blister with device 1 inh INHALATION Q24H 60 Days Qty: 60 RF: 3 hydrocodone-acetaminophen 5-325 mg tablet 1 tab PO Q6H PRN (Reason: pain) Qty: 30 RF: 0 trazodone 50 mg Tablet 50 mg PO BEDTIME RF: 0 guaifenesin 100 mg/5 mL Liquid 400 mg PO Q4H PRN (Reason: Cough) Qty: 0 RF: 0 sodium chloride [Saline Mist] 0.65 % Aerosol,[place] 1 spray nasal PRN PRN (Reason: Dryness) Qty: 0 RF: 0 furosemide [Lasix] 40 mg Tablet 40 mg PO BID 30 Days Qty: 60 RF: 3 albuterol sulfate 1.25 mg/3 mL Solution For Nebulization 1.25 mg INHALATION Q4H PRN (Reason: Shortness Of Breath) 30 Days Qty: 30 RF: 3 diltiazem HCl [Cartia XT] 240 mg Capsule,Extended Release 24hr 240 mg PO DAILY 30 Days Qty: 30 RF: 3 digoxin 125 mcg (0.125 mg) Tablet 125 mcg PO DAILY 30 Days Qty: 30 RF: 3 rosuvastatin 10 mg Tablet 10 mg PO DAILY 30 Days Qty: 30 RF: 3 Januvia 50 mg Tablet 50 mg PO DAILY 30 Days Qty: 30 RF: 3 Daliresp 500 mcg Tablet 500 mcg PO DAILY 30 Days Qty: 30 RF: 1 potassium chloride 20 mEq Tablet Extended Release 20 meq PO BID 30 Days Qty: 60 RF: 3 fluticasone propion-salmeterol [Advair Diskus] 500-50 mcg/dose Blister With Device 1 inh INHALATION BID 30 Days Qty: 1 RF: 3 omeprazole 20 mg Capsule,Delayed Release(Dr/Ec) 20 mg PO DAILY 30 Days Qty: 30 RF: 0 Basaglar KwikPen U-100 Insulin 100 unit/mL (3 mL) Insulin Pen 20 unit SUBCUT BEDTIME 30 Days Qty: 1 RF: 3 Incruse Ellipta 62.5 mcg/actuation Blister With Device 1 inh INHALATION DAILY 30 Days Qty: 1 RF: 3 cyclobenzaprine 5 mg tablet 5 mg PO TID PRN (Reason: muscle spasm) Qty: 20 RF: 0 Discharge Orders: Discharge Order (Routine); Ordered 12/28/19 Ordered By: Aleta Doevr Ref[place]: [facility] [place] Nasreen Gomez PA [Primary Care Provider] - 4-7 days (Post-hospital discharge follow up) Discharge Diet: Diabetic Discharge Activity: Resume usual activity Discharge Attestations Time Spent in Discharge Care*: greater than 30 min Specific Discharge Activities: Specific discharge activities: educating patient, documenting/other paperwork and evaluating patient/reviewing data Status at Discharge: Cognitive status at discharge: cognitively intact, Behavioral status at discharge: cooperative, Functional status at discharge: independent ambulation Overall status at discharge: patient is back to baseline Quality Metrics Clinical Quality Measures During this hospital stay, did patient experience: None Coding Level of Care 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[employer] Diagnoses Acute exacerbation of chronic obstructive airways disease J44.1 Atrial fibrillation I48.20 Atrial fibrillation type: unspecified chronic Congestive heart failure I50.32 Heart failure chronicity: chronic Heart failure type: diastolic Hypertension I10 Hypertension type: essential hypertension DAYNE (obstructive sleep apnea) G47.33 Back pain M54.5; G89.29 Back pain laterality: bilateral Back pain location: low back pain Chronicity: chronic Sciatica presence: unspecified whether sciatica present Diabetes E11.9; Z79.4 Diabetes mellitus type: type 2 Diabetes 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
== END 2019-12-28 11:30 | disposition home or self-care (01) | DRG 191 ==
LOC: ER 13:12 → MEDSURG 18:25
PROVIDERS: Admitting Provider Family Medicine; Emergency Provider Family Medicine; Family Provider Physician Assistant; PCP Physician Assistant; Visit Provider Family Medicine
DX: J43.9 Emphysema, unspecified (principal); I48.20 Chronic atrial fibrillation, unspecified; I50.32 Chronic diastolic (congestive) heart failure; I13.0 Hypertensive heart and chronic kidney disease with heart failure and stage 1 through stage 4 chronic kidney disease, or unspecified chronic kidney disease; Z99.81 Dependence on supplemental oxygen; Z87.891 Personal history of nicotine dependence; G47.33 Obstructive sleep apnea (adult) (pediatric); M54.9 Dorsalgia, unspecified; G89.29 Other chronic pain; Z79.4 Long term (current) use of insulin; E78.5 Hyperlipidemia, unspecified; N18.2 Chronic kidney disease, stage 2 (mild); K21.9 Gastro-esophageal reflux disease without esophagitis; I25.10 Atherosclerotic heart disease of native coronary artery without angina pectoris; Z95.5 Presence of coronary angioplasty implant and graft; E11.22 Type 2 diabetes mellitus with diabetic chronic kidney disease; E11.65 Type 2 diabetes mellitus with hyperglycemia; T38.0X5A Adverse effect of glucocorticoids and synthetic analogues, initial encounter; R09.02 Hypoxemia; I25.2 Old myocardial infarction; Z79.891 Long term (current) use of opiate analgesic; Z79.51 Long term (current) use of inhaled steroids; Z79.899 Other long term (current) drug therapy
CPT/HCPCS: 12345; 36415; 36416; 36600; 71045; 71275; 72070; 80048; 80053; 82803; 82805; 82962; 83880; 85025; 85378; 87040; 87070; 87077; 87205; 87804; 93005; 94640; 94660; 94664; 96372; 96375; 99281; 99283; J0456; J1815; J1956; J2270; J2360; J2405; J2930; J7050; J7512; Q9967

== ENCOUNTER 2020-01-13 11:52 | Outpatient (CLI) | payer MEDICARE, MEDICAID, SELFPAY ==
--- NOTE | 2020-01-13 | XR_ITS ---
WS: [id number] LUMBAR SPINE TECHNIQUE: 5 views of the lumbar spine CLINICAL INFORMATION: BACK PAIN COMPARISON: None. FINDINGS: Mild lumbar curve convex left. Normal alignment on the neutral view. No instability on flexion-extens ion. Chronic anterior wedging at T11. Five [id number] lumbar vertebral bodies. Disc space heights are well preserved. No compression f ractures.No spondylolisthesis. Visualized sacroiliac joints are normal. Normal visualized soft tissue s. Partially visualized bowel gas pattern is normal. XR/XR lumbar spine min 4V [id number] IMPRESSION: No instability on flexion-extension.
--- NOTE | 2020-01-13 | XR_ITS ---
WS: [id number] THORACIC SPINE TECHNIQUE: 3 views of the thoracic spine CLINICAL INFORMATION: BACK PAIN COMPARISON: None. FINDINGS: Mild thoracic curve convex right. Chronic appearing wedging in the mid to lower thoracic spine. Hypertrophic changes thoracic spine. Mo derate spondylitic changes cervical spine with disc space narrowing worse at C3-C4 C4-C5 and C5-C6. XR/XR thoracic spine 3V* [id number] IMPRESSION: 1. Mild thoracic curve convex right. 2. Chronic appearing anterior wedging in the mid and lower thoracic spine at T 7-T12. This is similar in appearance to December 21, 2019. 3. Moderate spondylitic changes cervical spine with disc space narrowing worse at C3-C6.
== END 2020-01-13 11:53 | disposition home or self-care (01) ==
PROVIDERS: Family Provider Physician Assistant; PCP Physician Assistant; Visit Provider Physician Assistant
DX: Z01.89 Encounter for other specified special examinations (principal)

== ENCOUNTER 2020-03-26 09:00 | Outpatient (CLI) | payer MEDICARE, MEDICAID, SELFPAY ==
[2020-03-26 12:45] VITALS: O2SAT 86; O2SAT 90
--- NOTE | 2020-03-26 14:10 | PFTS_ITS ---
Date of Study:03/26/20 Date of Dictation: MECHANICS: Forced vital capacity (FVC) is reduced. Forced expiratory volume in one second (FEV1) is reduced. FEV1/FVC is reduced. FLOW VOLUME LOOP: Reduced flow at all lung volumes. LUNG VOLUMES: Total lung capacity (TLC) is normal. Residual volume (RV) is increased. DIFFUSING CAPACITY FOR CARBON MONOXIDE: Not performed INTERPRETATION: The pulmonary function tests are consistent with moderate obstruction. There is also moderate restriction. Lung volumes are consistent with air trapping. Gas exchange (DLCO) was not measured. MTDD
== END 2020-03-26 09:01 | disposition home or self-care (01) ==
LOC: RT 09:03
PROVIDERS: PCP Physician Assistant; Visit Provider Internal Medicine Critical Care Medicine
DX: J44.9 Chronic obstructive pulmonary disease, unspecified (principal)
CPT/HCPCS: 94060; 94726; 94729; J7611

== ENCOUNTER 2021-01-15 11:20 | Observation (INO) | payer MEDICARE, MEDICAID, SELFPAY ==
[2021-01-15] VITALS (14 sets, daily range): BP systolic 149–192; BP diastolic 80–102; PULSE 79–108; RESP 15–27; TEMP 36.7–37; O2SAT 89–96; BMI 34.9
--- NOTE | 2021-01-15 11:16 | ED_ITS ---
HPI - SOB/Dyspnea General: Chief Complaint: Shortness of Breath/Dyspnea Stated Complaint: SOB History of Present Illness: HPI Narrative: 65-year-old male presents emergency room with complaint of shortness of breath getting progressively worse over the last week. He does not have any productive cough or fever is not had any diarrhea. He is not previously tested positive for Covid, nor has he been immunized. MD elicited complaint: shortness of breath and cough Pertinent past history: COPD, congestive heart failure and diabetes Onset (ago): week(s) (1) Timing: constant Severity: moderate Exacerbating factors: exertion and coughing Relieving factors: oxygen and rest Known history of: COPD, congestive heart failure and diabetes Associated symptoms: Reports chest congestion and cough; Deny abdominal pain, chest pain, diaphoresis, dizziness, extremity pain, fever(s), hemoptysis, lightheadedness, myalgias, nausea, orthopnea, palpitations, paresthesias, polydipsia, polyuria, rash, sense of impending doom, syncope or vomiting Treatment prior to arrival: oxygen and bronchodilator Review of Systems Const: Denies: fever(s) or diaphoresis ENMT: Denies: throat pain, ear or mastoid pain, nasal discharge or nasal congestion Card: Denies: chest pain, palpitations, lightheadedness, syncope or orthopnea Resp: Reports: chest congestion; Denies: hemoptysis GI: Denies: abdominal pain, nausea or vomiting : Denies: flank pain, dysuria, urinary frequency or urinary urgency Musc: Denies: extremity pain Skin/Breast: Denies: rash or pruritus Neuro: Denies: dizziness Endo: Denies: polyuria or polydipsia [facility] ED PFSH: Medical History (Updated 01/15/21 @ 14:00 by Nagi Olivarez DO) Atrial fibrillation -Currently normal sinus rhythm, heart rate controlled -continue Cardizem, digoxin -Has been off anticoagulation secondary to GI bleed while on Eliquis in May 2019 -Telemetry monitoring CAD (coronary artery disease) CHF (congestive heart failure) COPD (chronic obstructive pulmonary disease) Diabetes -most recent A1c-5.8 -Insulin dependent at baseline -Accu-Cheks, scheduled insulin, ISS -Hypoglycemia precautions; hyperglycemic likely secondary to steroids Heart attack Hypertension -hypertensive, continue to monitor vital signs -continue oral antihypertensives; increased dose of amlodipine DAYNE (obstructive sleep apnea) Surgical History H/O hernia repair Family History Mother Lung disease COPD Sister Cancer Social History Smoking and tobacco status: current every day smoker cigarettes Packs smoked per day: 1 Years cigarettes smoked: 47 [ Other cigarette details: Hx of 2PPD x 47 Years ] Quit status (tobacco): considering quitting Second hand smoke exposure: Yes Smoking risk assessment/counseling performed?: Yes Alcohol intake: current Alcohol intake frequency: holidays/special occasions only Desire information about alcohol rehabilitation?: No Counseling given: No Substance/Drug Use: never Desire information about substance/drug rehabilitation?: No Counseling given: No Lives independently: Yes Household members: none Marital status: Single Current occupational status: disabled and 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 History of recent travel: No Current gender identity: Male Physical Exam Const: GENERAL APPEARANCE: cooperative and comfortable ORIENTATION/CONSCIOUSNESS: Yes oriented to person, Yes oriented to place and Yes oriented to time HENMT: COMMON NORMALS: normocephalic, atraumatic and hearing grossly normal bilaterally HEAD & SCALP: normocephalic and atraumatic Eye: COMMON NORMALS: Equal, round and reactive pupils present, EOMs intact bilaterally, conjunctivae normal and no scleral icterus CONJUNCTIVA: Yes conjunctivae normal PUPIL: Yes Equal, round and reactive pupils present Neck/C-Spine: COMMON NORMALS: no JVD Resp: EFFORT & INSPECTION: Yes labored and Yes prolonged expiratory phase AUSCULTATION: wheezes and diminished lung sounds Cardio: COMMON NORMALS: no JVD, regular rate, regular rhythm and No murmurs present (Cardio) RATE: regular rate RHYTHM: regular rhythm GI: COMMON NORMALS: Soft to palpation and No hepatosplenomegaly present AUSCULTATION: Yes normoactive bowel sounds PALPATION: Yes Soft to palpation, No Tenderness to palpation present (GI), No Guarding due to palpation present (GI) and Yes No hepatosplenomegaly present Extremity: COMMON NORMALS: normal to inspection, capillary refill normal, no clubbing, cyanosis or edema, no calf tenderness and no pedal edema Neuro: SENSORIUM/ORIENTATION: Yes oriented to person, Yes oriented to place and Yes oriented to time Skin: COMMON NORMALS: no rashes or lesions noted GENERAL SKIN EXAM: no rashes or lesions noted Course Vital Signs: Vital signs: Vital Signs Temperature 98.6 F 01/15/21 11:13 Pulse Rate 100 01/15/21 12:30 Respiratory Rate 24 H 01/15/21 11:25 Blood Pressure 191/102 01/15/21 11:25 Pulse Oximetry 94 01/15/21 12:30 MDM - SOB/Dyspnea Lab Data: Labs: Lab Results 01/15/21 01/15/21 01/15/21 Range/Units 11:15 11:15 11:15 WBC 7.2 (4.0-10.0) 10^3/ uL RBC 5.40 H (4.1-5.3) 10^6/u L Hgb 14.3 (11.7-16.6) g/dL Hct 46.7 (42.0-52.0) % MCV 86.5 (80-94) fL MCH 26.5 L (28.0-34.0) pg MCHC 30.6 (30.0-36.0) g/dL RDW 17.2 H (12.1-15.1) % Plt Count 281 (130-400) 10^3/c mm MPV 10.1 (7.4-10.4) fL Neut % (Auto) 73.4 % Lymph % (Auto) 11.4 % Whiteside % (Auto) 12.9 % Eos % (Auto) 0.7 % Baso % (Auto) 0.8 % Neut # (Auto) 5.27 (1.8-7.7) 10^3/u L Lymph # (Auto) 0.8 (0.8-4.8) 10^3/u L Whiteside # (Auto) 0.9 (0.2-0.9) 10^3/u L Eos # (Auto) 0.1 (0.0-0.8) 10^3/u L Baso # (Auto) 0.1 (0.0-0.1) 10^3/u L Nucleated RBC % (a uto) 0 % Nucleated RBCs # 0.0 /100WBC Specimen Type Sample Site ABG pH (7.35-7.45) ABG pCO2 (35-45) mmHg ABG pO2 (80.0-100.0) mmH g ABG HCO3 (22-26) mmol/L ABG O2 Saturation ABG Base Excess (-2.0-2.0) mmol/ L Gee Test A-a O2 Gradient (5-10) mmHg Hematocrit (42-52) % Hgb O2 Saturation (95-100) % Carboxyhemoglobin (0.4-20.1) %THgb Methemoglobin (0.4-1.5) % Total Hemoglobin (14-18) g/dL Ionized Calcium (1.1-1.4) mmol/L O2 Delivery Device O2 Liters/Min % FiO2 % Supervisor Customer Services ID Sodium 138 (136-145) mmol/L Potassium 4.1 (3.5-5.1) mmol/L Chloride 94 L (98-107) mmol/L Carbon Dioxide 36 H (22-29) mmol/L Anion Gap 12.1 (5-19) BUN 12 (8-23) mg/dL Creatinine 0.7 (0.7-1.2) mg/dL GFR Calculation 113.9 (90-130) mL/min Glucose 153 H (65-115) mg/dL Calculated Osmolal ity 289 (285-295) mOsm/k g Calcium 8.7 (8.5-10.5) mg/dL Total Bilirubin 0.2 (0.15-1.2) mg/dL AST 10 (0-40) U/L ALT 12 (0-41) U/L Alkaline Phosphata se 97 (40-130) IU/L Troponin T Baselin e 33 H (0-15) ng/L NT-Pro-B Natriuret Pep 217 H (0-125) pg/mL Total Protein 6.1 L (6.6-8.7) g/dL Albumin 3.4 L (3.5-5.2) g/dL Globulin 2.7 (1.3-4.6) g/dL Urine Color (Yellow) Urine Appearance (CLEAR) Urine pH (5-7) Ur Specific Gravit y (1.005-1.030) Urine Protein (Negative) Urine Glucose (UA) (Normal) Urine Ketones (Negative) Urine Blood (Negative) Urine Nitrate (Negative) Urine Bilirubin (Negative) Urine Urobilinogen (Negative) mg/dL Ur Leukocyte Jen ase (Negative) Urine RBC (0-2) /hpf Urine WBC (0-5) /hpf Ur Squamous Epith Cells (0-5) /hpf Amorphous Sediment Urine Bacteria (NONE) /hpf Hyaline Casts /lpf Urine Mucus /hpf Digoxin (0.6-1.2) ng/mL SARS-CoV-2 Ag (Rap id) (Negative) 01/15/21 01/15/21 01/15/21 Range/Units 11:15 11:29 12:48 WBC (4.0-10.0) 10^3/ uL RBC (4.1-5.3) 10^6/u L Hgb (11.7-16.6) g/dL Hct (42.0-52.0) % MCV (80-94) fL MCH (28.0-34.0) pg MCHC (30.0-36.0) g/dL RDW (12.1-15.1) % Plt Count (130-400) 10^3/c mm MPV (7.4-10.4) fL Neut % (Auto) % Lymph % (Auto) % Whiteside % (Auto) % Eos % (Auto) % Baso % (Auto) % Neut # (Auto) (1.8-7.7) 10^3/u L Lymph # (Auto) (0.8-4.8) 10^3/u L Whiteside # (Auto) (0.2-0.9) 10^3/u L Eos # (Auto) (0.0-0.8) 10^3/u L Baso # (Auto) (0.0-0.1) 10^3/u L Nucleated RBC % (a uto) % Nucleated RBCs # /100WBC Specimen Type Arterial Sample Site Radial, left ABG pH 7.32 L (7.35-7.45) ABG pCO2 74.7 H* (35-45) mmHg ABG pO2 82.1 (80.0-100.0) mmH g ABG HCO3 38.4 H (22-26) mmol/L ABG O2 Saturation 93.6 ABG Base Excess 9.0 H (-2.0-2.0) mmol/ L Gee Test Pos A-a O2 Gradient 11.4 H (5-10) mmHg Hematocrit 44.0 (42-52) % Hgb O2 Saturation 88.9 L (95-100) % Carboxyhemoglobin 3.9 (0.4-20.1) %THgb Methemoglobin 1.1 (0.4-1.5) % Total Hemoglobin 14.4 (14-18) g/dL Ionized Calcium 1.2 (1.1-1.4) mmol/L O2 Delivery Device Nc O2 Liters/Min 4.0 % FiO2 36.0 % Supervisor Customer Services ID Cak Sodium 140.0 (136-145) mmol/L Potassium 3.9 (3.5-5.1) mmol/L Chloride (98-107) mmol/L Carbon Dioxide (22-29) mmol/L Anion Gap (5-19) BUN (8-23) mg/dL Creatinine (0.7-1.2) mg/dL GFR Calculation (90-130) mL/min Glucose 142.0 H (65-115) mg/dL Calculated Osmolal ity (285-295) mOsm/k g Calcium (8.5-10.5) mg/dL Total Bilirubin (0.15-1.2) mg/dL AST (0-40) U/L ALT (0-41) U/L Alkaline Phosphata se (40-130) IU/L Troponin T Baselin e (0-15) ng/L NT-Pro-B Natriuret Pep (0-125) pg/mL Total Protein (6.6-8.7) g/dL Albumin (3.5-5.2) g/dL Globulin (1.3-4.6) g/dL Urine Color Yellow (Yellow) Urine Appearance Clear (CLEAR) Urine pH 5 (5-7) Ur Specific Gravit y 1.020 (1.005-1.030) Urine Protein 3+ H (Negative) Urine Glucose (UA) Trace H (Normal) Urine Ketones Negative (Negative) Urine Blood Neg (Negative) Urine Nitrate Negative (Negative) Urine Bilirubin Neg (Negative) Urine Urobilinogen Norm (Negative) mg/dL Ur Leukocyte Jen ase Negative (Negative) Urine RBC None (0-2) /hpf Urine WBC None (0-5) /hpf Ur Squamous Epith Cells 0-4 H (0-5) /hpf Amorphous Sediment Not Reportable Urine Bacteria Trace (NONE) /hpf Hyaline Casts 0-4 H /lpf Urine Mucus Trace /hpf Digoxin 0.3 L (0.6-1.2) ng/mL SARS-CoV-2 Ag (Rap id) (Negative) 01/15/21 Range/Units 12:55 WBC (4.0-10.0) 10^3/ uL RBC (4.1-5.3) 10^6/u L Hgb (11.7-16.6) g/dL Hct (42.0-52.0) % MCV (80-94) fL MCH (28.0-34.0) pg MCHC (30.0-36.0) g/dL RDW (12.1-15.1) % Plt Count (130-400) 10^3/c mm MPV (7.4-10.4) fL Neut % (Auto) % Lymph % (Auto) % Whiteside % (Auto) % Eos % (Auto) % Baso % (Auto) % Neut # (Auto) (1.8-7.7) 10^3/u L Lymph # (Auto) (0.8-4.8) 10^3/u L Whiteside # (Auto) (0.2-0.9) 10^3/u L Eos # (Auto) (0.0-0.8) 10^3/u L Baso # (Auto) (0.0-0.1) 10^3/u L Nucleated RBC % (a uto) % Nucleated RBCs # /100WBC Specimen Type Sample Site ABG pH (7.35-7.45) ABG pCO2 (35-45) mmHg ABG pO2 (80.0-100.0) mmH g ABG HCO3 (22-26) mmol/L ABG O2 Saturation ABG Base Excess (-2.0-2.0) mmol/ L Gee Test A-a O2 Gradient (5-10) mmHg Hematocrit (42-52) % Hgb O2 Saturation (95-100) % Carboxyhemoglobin (0.4-20.1) %THgb Methemoglobin (0.4-1.5) % Total Hemoglobin (14-18) g/dL Ionized Calcium (1.1-1.4) mmol/L O2 Delivery Device O2 Liters/Min % FiO2 % Supervisor Customer Services ID Sodium (136-145) mmol/L Potassium (3.5-5.1) mmol/L Chloride (98-107) mmol/L Carbon Dioxide (22-29) mmol/L Anion Gap (5-19) BUN (8-23) mg/dL Creatinine (0.7-1.2) mg/dL GFR Calculation (90-130) mL/min Glucose (65-115) mg/dL Calculated Osmolal ity (285-295) mOsm/k g Calcium (8.5-10.5) mg/dL Total Bilirubin (0.15-1.2) mg/dL AST (0-40) U/L ALT (0-41) U/L Alkaline Phosphata se (40-130) IU/L Troponin T Baselin e (0-15) ng/L NT-Pro-B Natriuret Pep (0-125) pg/mL Total Protein (6.6-8.7) g/dL Albumin (3.5-5.2) g/dL Globulin (1.3-4.6) g/dL Urine Color (Yellow) Urine Appearance (CLEAR) Urine pH (5-7) Ur Specific Gravit y (1.005-1.030) Urine Protein (Negative) Urine Glucose (UA) (Normal) Urine Ketones (Negative) Urine Blood (Negative) Urine Nitrate (Negative) Urine Bilirubin (Negative) Urine Urobilinogen (Negative) mg/dL Ur Leukocyte Jen ase (Negative) Urine RBC (0-2) /hpf Urine WBC (0-5) /hpf Ur Squamous Epith Cells (0-5) /hpf Amorphous Sediment Urine Bacteria (NONE) /hpf Hyaline Casts /lpf Urine Mucus /hpf Digoxin (0.6-1.2) ng/mL SARS-CoV-2 Ag (Rap id) Negative (Negative) Discharge Plan Discharge Patient Disposition: Admitted As Inpatient Clinical Impression: Acute exacerbation of chronic obstructive airways disease, Hypertension, COPD (chronic obstructive pulmonary disease), Congestive heart failure, Diabetes, Atrial fibrillation, DAYNE (obstructive sleep apnea) Condition: Stable Prescriptions: No Action Trelegy Ellipta 100-62.5-25 mcg blister with device 1 inh INHALATION Q24H 60 Days Qty: 60 RF: 3 ascorbate calcium (vitamin C) 500 mg tablet 500 mg PO DAILY RF: 0 hydrocodone-acetaminophen 5-325 mg tablet 1 tab PO Q6H PRN (Reason: pain) Qty: 30 RF: 0 trazodone 50 mg Tablet 50 mg PO BEDTIME RF: 0 guaifenesin 100 mg/5 mL Liquid 400 mg PO Q4H PRN (Reason: Cough) Qty: 0 RF: 0 sodium chloride [Saline Mist] 0.65 % Aerosol,[place] 1 spray nasal PRN PRN (Reason: Dryness) Qty: 0 RF: 0 furosemide [Lasix] 40 mg Tablet 40 mg PO BID 30 Days Qty: 60 RF: 3 albuterol sulfate 1.25 mg/3 mL Solution For Nebulization 1.25 mg INHALATION Q4H PRN (Reason: Shortness Of Breath) 30 Days Qty: 30 RF: 3 diltiazem HCl [Cartia XT] 240 mg Capsule,Extended Release 24hr 240 mg PO DAILY 30 Days Qty: 30 RF: 3 digoxin 125 mcg (0.125 mg) Tablet 125 mcg PO DAILY 30 Days Qty: 30 RF: 3 rosuvastatin 10 mg Tablet 10 mg PO DAILY 30 Days Qty: 30 RF: 3 Januvia 50 mg Tablet 50 mg PO DAILY 30 Days Qty: 30 RF: 3 Daliresp 500 mcg Tablet 500 mcg PO DAILY 30 Days Qty: 30 RF: 1 potassium chloride 20 mEq Tablet Extended Release 20 meq PO BID 30 Days Qty: 60 RF: 3 omeprazole 20 mg Capsule,Delayed Release(Dr/Ec) 20 mg PO DAILY 30 Days Qty: 30 RF: 0 Basaglar KwikPen U-100 Insulin 100 unit/mL (3 mL) Insulin Pen 20 unit SUBCUT BEDTIME 30 Days Qty: 1 RF: 3 cyclobenzaprine 5 mg tablet 5 mg PO TID PRN (Reason: muscle spasm) Qty: 20 RF: 0 Referrals: Nasreen Gomez PA [Primary Care Provider] - Coding Level of Care Code ED Yarn Examiner Skeins for [facility] Morin
--- NOTE | 2021-01-15 11:17 | XR_ITS ---
WS: [id number] Portable AP upright chest, 01/15/2021 Clinical Data: dyspnea/cough Comparison: Portable chest, 12/24/2019. Findings: There are patchy opacities over the surface of both diaphragms which may represent atelecta sis and/or minimal pneumonia. No nodules, masses or effusions are seen. The heart is enlarged. The pu lmonary vascularity is not increased. No pneumothorax is seen. The aortic arch and descending aorta are tortuous. There are monitor leads on the chest wall. There is a calcification inferior to the lef t shoulder joint which may represent calcific bursitis. XR/XR chest 1V portable [id number] Impression: 1. Bilateral patchy opacities over the surface of both diaphragms which could r epresent atelectasis and/or pneumonia. 2. Atherosclerosis and cardiomegaly.
--- NOTE | 2021-01-15 11:19 | ECG_ITS ---
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1955 Requested By: Nagi Arita Order Number: [id number] Reading MD: ADAN ENRIQUEZ Measurements Intervals [place] Rate: 104 P: 65 SC: 183 QRS: 72 QRSD: 106 T: 70 QT: 335 QTc: 442 Interpretive Statements SINUS TACHYCARDIA POSSIBLE LEFT ATRIAL ENLARGEMENT [-0.1mV P WAVE IN V1/V2] INCOMPLETE RIGHT BUNDLE BRANCH BLOCK [90+ ms QRS DURATION, TERMINAL R IN V1/V2, 40+ ms S IN I/aVL/V4/V5/V6] ABNORMAL RHYTHM ECG Compared to ECG 12/24/2019 20:49:39 Sinus rhythm no longer present Electronically Signed On 01-15-2021 19:24:39 DIRECTOR BUSINESS MANAGEMENT by ADAN ENRIQUEZ [email or web address] [email or web address]/[id number] f
[2021-01-15 11:34] LABS: Basophils # 0.1 10^3/uL (0.0-0.1); Basophils % 0.8 %; Eosinophils # 0.1 10^3/uL (0.0-0.8); Eosinophils % 0.7 %; Hematocrit 46.7 % (42.0-52.0); Hemoglobin 14.3 g/dL (11.7-16.6); Lymphocytes # 0.8 10^3/uL (0.8-4.8); Lymphocytes % 11.4 %; Mean Corpuscular HGB Conc 30.6 g/dL (30.0-36.0); Mean Corpuscular Hemoglobin 26.5 pg (28.0-34.0); Mean Corpuscular Volume 86.5 fL (80-94); Mean Platelet Volume 10.1 fL (7.4-10.4); Monocytes # 0.9 10^3/uL (0.2-0.9); Monocytes % 12.9 %; Neutrophils # 5.27 10^3/uL (1.8-7.7); Neutrophils % 73.4 %; Nucleated Red Blood Cells % 0 %; Platelet Count 281 10^3/cmm (130-400); Red Cell Distribution Width 17.2 % (12.1-15.1); White Blood Count 7.2 10^3/uL (4.0-10.0)
[2021-01-15 11:41] LABS: ABG PCO2 74.7 mmHg (35-45); ABG PH Result 7.32 (7.35-7.45); Alveolar-Arterial Oxygen Gradi 11.4 mmHg (5-10); Blood Gas Allen Test Pos; Blood Gas Operator Identificat CAK; Blood Gas Sample Site Radial, left; Blood Gas Sample Type Arterial; Carboxyhemoglobin 3.9 %THgb (0.4-20.1); HCO3 ABG 38.4 mmol/L (22-26); HGB O2 Sat 88.9 % (95-100); Ionized Calcium Level - ABG 1.2 mmol/L (1.1-1.4); Methemoglobin 1.1 % (0.4-1.5); Oxygen Device NC; Oxygen Saturation ABG 93.6; PO2 ABG 82.1 mmHg (80.0-100.0); Potassium Level - ABG 3.9 mmol/L (3.5-5.0); Total Hemoglobin 14.4 g/dL (14-18)
[2021-01-15 11:49] LABS: Troponin(5th) Baseline 33 ng/L (0-15)
[2021-01-15 11:58] LABS: Alanine Aminotransferase 12 U/L (0-41); Albumin Level 3.4 g/dL (3.5-5.2); Alkaline Phosphatase 97 IU/L (40-130); Anion Gap 12.1 (5-19); Aspartate Amino Transferase 10 U/L (0-40); Blood Urea Nitrogen 12 mg/dL (8-23); Calcium 8.7 mg/dL (8.5-10.5); Carbon Dioxide 36 mmol/L (22-29); Chloride 94 mmol/L (98-107); Globulin 2.7 g/dL (1.3-4.6); Glomerular Filtration Rate 113.9 mL/min (90-130); Glucose 153 mg/dL (65-115); NT Pro B Type Natriuretic Pept 217 pg/mL (0-125); Osmolality Calculated 289 mOsm/kg (285-295); Potassium 4.1 mmol/L (3.5-5.1); Sodium 138 mmol/L (136-145); Total Bilirubin 0.2 mg/dL (0.15-1.2); Total Protein 6.1 g/dL (6.6-8.7)
[2021-01-15 12:52] LABS: Digoxin 0.3 ng/mL (0.6-1.2)
[2021-01-15 13:16] LABS: Add Urine Microscopic? YES; Bilirubin Urine Neg (Negative); Blood Urine Neg (Negative); Glucose Urine UA Trace (Normal); Ketones Urine Negative (Negative); Leukocyte Esterase Urine Negative (Negative); Nitrate Urine Negative (Negative); Protein Urine 3+ (Negative); Urine Appearance Clear (CLEAR); Urine Color Yellow (Yellow); Urobilinogen Urine Norm (Negative); pH Urine 5 (5-7)
[2021-01-15 13:19] LABS: Add Urine Culture? No; Bacteria Urine TRACE /hpf; Hyaline Casts Urine 0-4 /lpf; Mucus Urine TRACE /hpf; Squamous Epithelial Cell Urine 0-4 /hpf (0-5)
--- NOTE | 2021-01-15 13:19 | ECG_ITS ---
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: : 1955 Requested By: Nagi Arita Order Number: [id number] Reading MD: ADAN ENRIQUEZ Measurements Intervals [place] Rate: 98 P: 69 MO: 183 QRS: 68 QRSD: 99 T: 72 QT: 337 QTc: 431 Interpretive Statements SINUS RHYTHM POSSIBLE LEFT ATRIAL ENLARGEMENT [-0.1mV P WAVE IN V1/V2] INCOMPLETE RIGHT BUNDLE BRANCH BLOCK [90+ ms QRS DURATION, TERMINAL R IN V1/V2, 40+ ms S IN I/aVL/V4/V5/V6] Compared to ECG 12/24/2019 20:49:39 No significant changes Electronically Signed On 01-15-2021 19:26:51 HOST AND HOSTESS by ADAN ENRIQUEZ [id number]
[2021-01-15 13:47] LABS: SARS Covid-2 Antigen Negative (Negative)
--- NOTE | 2021-01-15 13:52 | PM.HP ---
Providers/Chief Complaint Primary Care Provider: Nasreen Gomez Chief Complaint: SOB History of Present Illness Nagi Cuellar is a 65 year old male who has history of class D COPD 4 L oxygen dependent uses BiPAP at night presented today with chief complaint of respiratory distress. Follows up with Dr. Corley for end-stage COPD. Also carries history of obstructive sleep apnea, atrial fibrillation, grade 1 diastolic dysfunction, 60% EF preserved ejection fraction, off anticoagulation secondary to GI bleed since May 2019. Patient is stating that he has been experiencing shortness of breath for last 2 weeks but recently he has noticed increase sputum production with coughing, he has not noticed any fever, sinusitis, he has not received his COVID-19 vaccination. He is denying myalgias. He is endorsing weight gain however he is taking Lasix 80 mg twice a day. He is consistent with his BiPAP. He is endorsing greenish sputum production. Because of worsening of symptoms he decided to come to the hospital for evaluation. History of smoking 1 pack/day and stating that he just quit at 11 PM last night In the ER he received Levaquin and methylprednisone, CTA rule out PE consistent with atelectasis, BNP lower as compared to previous values, acute hypercapnic respiratory failure No signs of pneumonia Medications/Allergies Home Medications Medication Instructions Recorded Confirmed Last Taken Type trazodone 50 mg PO BEDTIME@2100 11/20/19 01/15/21 01/14/21 History Basaglar KwikPen U-100 Insulin 20 unit SUBCUT BEDTIME 30 Days #1 11/22/19 01/15/21 01/14/21 Rx ml albuterol sulfate 1.25 mg INHALATION Q4H PRN 30 Days 11/22/19 01/15/21 01/14/21 Rx #30 appful sodium chloride [Saline Mist] 1 spray NASAL PRN PRN #0 ml 11/22/19 01/15/21 12/21/19 Rx fluticasone fur. 100 mcg-umeclid 1 inh INHALATION Q24H 60 Days #60 12/19/19 01/15/21 01/15/21 Rx 62.5 mcg-vilant 25 mcg each inhalat.powder hydrocodone-acetaminophen 1 tab PO Q6H PRN #30 tab 12/28/19 01/15/21 Unknown Rx Cartia XT 240 mg PO DAILY@0700 01/15/21 01/15/21 01/15/21 History Daliresp 500 mcg PO DAILY@0700 01/15/21 01/15/21 01/15/21 History Januvia 50 mg PO DAILY@0700 01/15/21 01/15/21 01/15/21 History Lasix 40 mg PO BID@0700,2100 01/15/21 01/15/21 01/15/21 History amlodipine 5 mg PO DAILY@0700 01/15/21 01/15/21 Unknown History digoxin 125 mcg PO DAILY@0700 01/15/21 01/15/21 01/15/21 History methimazole 2.5 mg PO DAILY@0700 01/15/21 01/15/21 01/15/21 History omeprazole 20 mg PO DAILY@0700 01/15/21 01/15/21 01/15/21 History potassium chloride 20 meq PO BID@0700,2100 01/15/21 01/15/21 01/15/21 History rosuvastatin 10 mg PO DAILY@0700 01/15/21 01/15/21 01/15/21 History Allergies Allergy/AdvReac Type Severity Reaction Status Date / Time No Known Allergies Allergy Verified 10/26/20 10:57 PFSH Acute PFSH: Medical History (Updated 01/15/21 @ 16:36 by Erick Cordova MD) Atrial fibrillation -Currently normal sinus rhythm, heart rate controlled -continue Cardizem, digoxin -Has been off anticoagulation secondary to GI bleed while on Eliquis in May 2019 -Telemetry monitoring CAD (coronary artery disease) CHF (congestive heart failure) COPD (chronic obstructive pulmonary disease) Diabetes -most recent A1c-5.8 -Insulin dependent at baseline -Accu-Cheks, scheduled insulin, ISS -Hypoglycemia precautions; hyperglycemic likely secondary to steroids Heart attack Hypertension -hypertensive, continue to monitor vital signs -continue oral antihypertensives; increased dose of amlodipine DAYNE (obstructive sleep apnea) Surgical History H/O hernia repair Family History Mother Lung disease COPD Sister Cancer Social History Smoking and tobacco status: current every day smoker cigarettes Packs smoked per day: 1 Years cigarettes smoked: 47 [ Other cigarette details: Hx of 2PPD x 47 Years ] Quit status (tobacco): considering quitting Second hand smoke exposure: Yes Smoking risk assessment/counseling performed?: Yes Alcohol intake: current Alcohol intake frequency: holidays/special occasions only Desire information about alcohol rehabilitation?: No Counseling given: No Substance/Drug Use: never Desire information about substance/drug rehabilitation?: No Counseling given: No Lives independently: Yes Household members: none Marital status: Single Current occupational status: disabled and 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 [employer] History of recent travel: No Current gender identity: Male Vitals/I&O/Wt Last Vital Signs Temp 98.6 F 01/15/21 11:13 Pulse 100 01/15/21 12:30 Resp 24 H 01/15/21 11:25 BP 191/102 01/15/21 11:25 Pulse Ox 94 01/15/21 12:30 Weight last 48 hrs Weight 95.254 kg Physical Exam Narrative: EXAM NARRATIVE: Obese middle-aged male who appears more than stated age Unkept appearance Signs of fluid overload bilateral lower extremity 2+ edema No active chest pain, Variable S1-S2 with active signs of fluid overload Abdomen distended soft nontender No neurological deficit EOMI, PERRLA GCS 15 awake alert oriented x3 Venous stasis dermatitis Appropriate mood and affect Currently saturating well on 4 L nasal cannula Patient has very diminished airflow, has typical blue bloater appearance Data : 01/15/21 11:15 01/15/21 11:15 A&P Assessment and plan (1) Decompensated COPD with exacerbation (chronic obstructive pulmonary disease): Status: Acute (2) Acute on chronic respiratory failure with hypercapnia: Status: Acute (3) Cor pulmonale: Status: Acute Additional A&P Information Acute COPD exacerbation secondary to active smoker Patient endorsing increased sputum production No signs of consolidation pulmonary edema or PE I will start him on a azithromycin for anti-inflammatory and continue his end-stage COPD regimen as well Continue BiPAP at night and use it in the day if needed No active chest pain, 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 fib without RVR not a candidate for anticoagulation secondary to GI bleed currently hemoglobin stable Full code Consistent carb diet DVT prophylaxis Lovenox Patient is stating he quit smoking last night at 11 PM Attestations Medical Necessity Statement*: Anticipating discharge in less than 48 hours currently need overnight monitoring for acute on chronic hypercapnic restaurant failure secondary to active smoking Time Spent in Patient Care: (>than 50% of time spent in counselling and/or direct pt care on unit). 35mins Coding Level of Care Code Acute Respiratory Care Instructor for [facility] Morin Diagnoses Decompensated COPD with exacerbation (chronic obstructive pulmonary disease) J44.1 Acute on chronic respiratory failure with hypercapnia J96.22 Cor pulmonale I27.81
--- NOTE | 2021-01-15 13:55 | CT_ITS ---
WS: [id number] CTA scan of the chest with IV contrast. Additional two-dimensional coronal and sagittal reconstructio n and MIP images was performed. 01/15/2021 Clinical Data: PE Comparison: None. DLP: 602.[address] scans at [facility] use at least one of these dose optimization techniques: automat ed exposure control; mA and/or kV adjustment per patient size (includes targeted exams where dose is matched to clinical indication); or iterative reconstruction. Findings: The central pulmonary arteries and peripheral pulmonary arteries fill normally with no evidence of in traluminal filling defects. No pulmonary embolic disease is noted. No nodules, masses or effusions are seen. The heart size is normal with no pericardial effusion. No p neumonia or pneumothorax is seen. Bibasilar atelectasis is present. There is coronary artery calcific ation. The heart is enlarged. The pulmonary arterial system and thoracic aorta demonstrate no abnorma lities or dilatations. There is no axillary or significant mediastinal adenopathy. The thyroid gland shows normal enhancement. The trachea bifurcates into the bronchi. The upper abdomen shows no abnormalities. The visualized liver, spleen, pancreas, gallbladder, adrena l glands and superior poles of the kidneys show no change from before The bones of the thoracic and u pper lumbar spine show minimal osteoarthritis and an old T8 compression fracture. CT/CT angio chest PE protcl [id number] Impression: 1. Negative for pulmonary embolic disease. 2. Cardiomegaly. 3. Bibasilar atelectasis.
[2021-01-15 14:01] LABS: Troponin 5 2HR 36.72 ng/L (0-15); Troponin 5 2HR Delta 3.72 ABS# (0-10)
[2021-01-15] MEDS: levofloxacin-dextrose 5 % 750 MG/150 ML PREMIX 100 MG IV (14:28)
[2021-01-15] MEDS: iohexol 350 mg/mL 100 mL Btl IV (14:56)
--- NOTE | 2021-01-15 17:19 | ECG_ITS ---
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1955 Requested By: Nagi Arita Order Number: [id number] Reading MD: ADAN ENRIQUEZ Measurements Intervals [place] Rate: 97 P: 52 CO: 221 QRS: 58 QRSD: 105 T: 71 QT: 351 QTc: 446 Interpretive Statements SINUS RHYTHM WITH FIRST DEGREE AV BLOCK WITH OCCASIONAL VENTRICULAR PREMATURE COMPLEXES INCOMPLETE RIGHT BUNDLE BRANCH BLOCK [90+ ms QRS DURATION, TERMINAL R IN V1/V2, 40+ ms S IN I/aVL/V4/V5/V6] SEPTAL MYOCARDIAL INFARCTION [40+ ms Q WAVE IN V1/V2], OF INDETERMINATE AGE Compared to ECG 01/15/2021 13:37:18 Ventricular premature complex(es) now present First degree AV block now present Myocardial infarct finding now present Electronically Signed On 01-15-2021 19:25:10 MANAGER INSTRUMENTATION by ADAN ENRIQUEZ [id number]
[2021-01-15 17:29] LABS: Glucose Point of Care 164 mg/dL (70-110)
[2021-01-15] MEDS: enoxaparin 40 mg/0.4 mL Syringe SUBCUT (17:50)
[2021-01-15] MEDS: bumetanide 1 mg Tablet PO (17:50)
--- NOTE | 2021-01-15 19:23 | PC.NURSE ---
Received bedside report from CARLITOS Tabares. Patient resting in bed watching TV. Patient wanting to go home and having trouble understanding isolation requirements due to COVID PCR pending results.
--- NOTE | 2021-01-15 20:08 | PC.NURSE ---
Patient requesting nicotine patch. Informed Dr Bass. Received telephone order for Nicotine transdermal patch 14mg daily to begin now. RBVO
[2021-01-15] MEDS: nicotine 14 mg Patch 1 PATCH TRANSDERMA (20:28)
[2021-01-15] MEDS: potassium chloride ER 20 mEq Tablet PO (20:28)
[2021-01-15] MEDS: insulin glargine 100 units/1 mL 20 UNIT SUBCUT (20:28)
[2021-01-15 20:40] LABS: Glucose Point of Care 212 mg/dL (70-110)
[2021-01-16] VITALS (22 sets, daily range): BP systolic 149–162; BP diastolic 80–100; PULSE 70–101; RESP 14–28; TEMP 36.7–37.5; O2SAT 90–98
--- NOTE | 2021-01-16 00:31 | PC.NURSE ---
Patient requesting home dose of trazodone 50mg. He reports taking this every night at home to help with sleep. Informed Dr Bass and received telephone order for trazodone 50mg po at bedtime. RBVO
[2021-01-16] MEDS: trazodone 50 mg Tablet PO (00:36)
[2021-01-16] MEDS: ipratropium-albuterol 3 mL Neb INHALATION ×4 (02:29→19:35)
[2021-01-16 04:30] LABS: ABG PH Result 7.26 (7.35-7.45); Base Excess ABG 8.6 mmol/L (-2.0-2.0); Blood Gas Operator Identificat HARKR; Blood Gas Sample Site Brachial, right; Blood Gas Sample Type Arterial; HCO3 ABG 39.4 mmol/L (22-26); Oxygen Device BIPAP; PO2 ABG 64.5 mmHg (80.0-100.0)
[2021-01-16 04:44] LABS: ABG PCO2 87.3 mmHg (35-45)
[2021-01-16 05:55] LABS: Basophils % 0.2 %; Hemoglobin 13.5 g/dL (11.7-16.6); Lymphocytes # 0.2 10^3/uL (0.8-4.8); Lymphocytes % 4.8 %; Mean Corpuscular HGB Conc 30.7 g/dL (30.0-36.0); Mean Corpuscular Hemoglobin 26.4 pg (28.0-34.0); Mean Corpuscular Volume 85.9 fL (80-94); Mean Platelet Volume 10.4 fL (7.4-10.4); Monocytes # 0.1 10^3/uL (0.2-0.9); Monocytes % 2.5 %; Neutrophils # 4.36 10^3/uL (1.8-7.7); Neutrophils % 91.7 %; Nucleated Red Blood Cells % 0 %; Platelet Count 298 10^3/cmm (130-400); Red Blood Count 5.12 10^6/uL (4.1-5.3); Red Cell Distribution Width 16.8 % (12.1-15.1); White Blood Count 4.8 10^3/uL (4.0-10.0)
[2021-01-16] MEDS: dilTIAZem ER (24HR) 240 mg Capsule PO (06:10)
[2021-01-16] MEDS: roflumilast 500 mcg Tablet PO (06:10)
[2021-01-16] MEDS: amlodipine 5 mg Tablet PO (06:10)
[2021-01-16] MEDS: potassium chloride ER 20 mEq Tablet PO ×2 (06:10→20:50)
[2021-01-16] MEDS: pantoprazole DR 40 mg Tablet PO (06:10)
[2021-01-16] MEDS: atorvastatin 40 mg Tablet PO (06:10)
[2021-01-16] MEDS: methIMAzole 5 MG Tablet 2.5 MG PO (06:10)
[2021-01-16 06:20] LABS: Albumin Level 3.2 g/dL (3.5-5.2); Alkaline Phosphatase 100 IU/L (40-130); Anion Gap 11.4 (5-19); Aspartate Amino Transferase 11 U/L (0-40); Blood Urea Nitrogen 18 mg/dL (8-23); Calcium 8.4 mg/dL (8.5-10.5); Carbon Dioxide 36 mmol/L (22-29); Chloride 92 mmol/L (98-107); Glomerular Filtration Rate 97.6 mL/min (90-130); Glucose 188 mg/dL (65-115); Osmolality Calculated 287 mOsm/kg (285-295); Potassium 4.4 mmol/L (3.5-5.1); Sodium 135 mmol/L (136-145); Total Bilirubin 0.2 mg/dL (0.15-1.2); Total Protein 6.2 g/dL (6.6-8.7)
[2021-01-16 06:33] LABS: Alanine Aminotransferase 11 U/L (0-41)
[2021-01-16 06:41] LABS: Glucose Point of Care 191 mg/dL (70-110)
--- NOTE | 2021-01-16 07:45 | PC.NURSE ---
Pt removed his BIPAP to eat his breakfast. Notified RT regarding pt's BIPAP use. However, pt already removed his BIPAP himself to eat. Applied nasal cannula back on.
[2021-01-16] MEDS: bumetanide 0.25 mg/mL SDV 10 mL 2 MG IV (08:08)
[2021-01-16] MEDS: azithromycin 250 mg Tablet PO (08:15)
--- NOTE | 2021-01-16 09:58 | PM.PN ---
Subjective Subjective: Interval history: This morning patient was eating breakfast when I entered the room however he is telling me that he used BiPAP overnight and discontinued around 4 AM, his PCO2 has shown worsening, he is awake alert no signs of obtundation or drowsiness On repeated questioning he denied noncompliance with BiPAP at home No chest pain shortness of breath however still experiencing greenish sputum production, no leukocytosis has stayed afebrile 1 bowel movement today urine output in positive balance Vitals/I&O/Wt Last Vital Signs Temp 98.6 F 01/16/21 08:00 Pulse 87 01/16/21 09:50 Resp 20 H 01/16/21 09:38 BP 159/86 01/16/21 08:00 Pulse Ox 97 01/16/21 09:38 01/15/21 01/16/21 01/16/21 22:59 06:59 14:59 Intake Total 1314 / 1314 240 / 240 Output Total 400 / 400 275 / 675 200 / 200 Balance 914 / 914 -275 / 639 40 / 40 Weight last 48 hrs Weight 95.254 kg Physical Exam Narrative: EXAM NARRATIVE: Was eating breakfast when I entered the room He was not fully nasal cannula saturating well No active respiratory distress Bilateral diminished airflow no active wheezing rhonchi, mild crackles Distended abdomen soft obesity soft S1, S2 with signs of right-sided heart failure Cor pulmonale Bilateral extremity edema 2+ Awake alert oriented x3 GCS 15 No signs of obtundation or drowsiness Data : 01/16/21 05:39 01/16/21 05:39 A&P Assessment and plan (1) Cor pulmonale: Status: Acute (2) Acute on chronic respiratory failure with hypercapnia: Status: Acute (3) Decompensated COPD with exacerbation (chronic obstructive pulmonary disease): Status: Acute (4) DAYNE (obstructive sleep apnea): Status: Chronic (5) Hypoxia: Status: Acute (6) Nicotine addiction: Status: Acute Additional A&P Information Acute COPD exacerbation secondary to active smoking Patient endorsing greenish sputum production currently afebrile no leukocytosis Continue azithromycin for anti-inflammatory effect As needed DuoNeb treatment I reinforced and counseled him multiple times to use BiPAP, this is my second encounter when he was not using BiPAP when we recommended for him to do so, compliance with BiPAP is questionable at this point which is evident with worsening of hypercapnia however no change in mental status or respiratory distress I will monitor him in CCU and requested him to start his BiPAP therapy will obtain blood gas at noon Cor pulmonale right-sided heart failure due to underlying COPD Continue Bumex 2 mg IV daily At home he was taking Lasix 160 mg (80 mg twice a day regimen) He is in a positive balance, Continue fluid restriction target 1.5 L negative balance Sleep apnea: He will need BiPAP at night Nicotine addiction patient is endorsing quitting smoking Full code Consistent carb/cardiac diet DVT prophylaxis Lovenox Attestations Medical Necessity Statement*: He will be discharged once there is improvement in his hypercapnia, likely tomorrow for worsening of hypercapnia he will stay in the hospital today Time Spent in Patient Care: 35mins Coding Level of Care Code 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
[2021-01-16 11:46] LABS: Glucose Point of Care 212 mg/dL (70-110)
[2021-01-16 14:14] LABS: ABG PH Result 7.31 (7.35-7.45); Arterial Blood Gas Hematocrit 43.2 % (42-52); Base Excess ABG 10.4 mmol/L (-2.0-2.0); Blood Gas Allen Test Pos; Blood Gas Operator Identificat MONRO; Blood Gas Sample Site Radial, right; Blood Gas Sample Type Arterial; HCO3 ABG 40.4 mmol/L (22-26); Oxygen Device BIPAP; PO2 ABG 76.4 mmHg (80.0-100.0)
[2021-01-16 14:16] LABS: ABG PCO2 81.2 mmHg (35-45)
[2021-01-16 15:04] LABS: Coronavirus Test Green County Not Detected
[2021-01-16] MEDS: lisinopril 10 mg Tablet PO (15:50)
[2021-01-16 16:36] LABS: Glucose Point of Care 217 mg/dL (70-110)
[2021-01-16] MEDS: enoxaparin 40 mg/0.4 mL Syringe SUBCUT (18:12)
[2021-01-16 20:14] LABS: Glucose Point of Care 129 mg/dL (70-110)
[2021-01-16] MEDS: nicotine 14 mg Patch 1 PATCH TRANSDERMA (20:49)
[2021-01-16] MEDS: insulin glargine 100 units/1 mL 20 UNIT SUBCUT (20:50)
--- NOTE | 2021-01-16 22:04 | PC.NURSE ---
BEDSIDE REPORT RECEIVED FROM DARRIAN URBINA. PT IS RESTING IN BED. PT DENIES PAIN AT THIS TIME. PT IS ON BIPAP. WILL CONTINUE TO MONITOR.
[2021-01-17] VITALS (21 sets, daily range): BP systolic 130–148; BP diastolic 71–86; PULSE 72–93; RESP 16–28; TEMP 36.2–37; O2SAT 88–96
[2021-01-17] MEDS: ipratropium-albuterol 3 mL Neb INHALATION ×6 (00:11→23:58)
--- NOTE | 2021-01-17 00:44 | PC.NURSE ---
PT REFUSED BP.
[2021-01-17 05:36] LABS: Anion Gap 10.3 (5-19); Blood Urea Nitrogen 25 mg/dL (8-23); Calcium 8.4 mg/dL (8.5-10.5); Carbon Dioxide 35 mmol/L (22-29); Chloride 94 mmol/L (98-107); Glomerular Filtration Rate 97.6 mL/min (90-130); Glucose 117 mg/dL (65-115); Osmolality Calculated 285 mOsm/kg (285-295); Potassium 4.3 mmol/L (3.5-5.1); Sodium 135 mmol/L (136-145)
[2021-01-17 05:56] LABS: ABG PCO2 85.6 mmHg (35-45); ABG PH Result 7.31 (7.35-7.45); Arterial Blood Gas Hematocrit 41.1 % (42-52); Base Excess ABG 12.7 mmol/L (-2.0-2.0); Blood Gas Allen Test Pos; Blood Gas Sample Site Brachial, right; Blood Gas Sample Type Arterial; HCO3 ABG 42.9 mmol/L (22-26); Oxygen Device BIPAP; PO2 ABG 68.3 mmHg (80.0-100.0)
[2021-01-17] MEDS: amlodipine 5 mg Tablet PO (06:14)
[2021-01-17] MEDS: roflumilast 500 mcg Tablet PO (06:15)
[2021-01-17] MEDS: dilTIAZem ER (24HR) 240 mg Capsule PO (06:15)
[2021-01-17] MEDS: methIMAzole 5 MG Tablet 2.5 MG PO (06:15)
[2021-01-17] MEDS: pantoprazole DR 40 mg Tablet PO (06:15)
[2021-01-17] MEDS: atorvastatin 40 mg Tablet PO (06:15)
[2021-01-17] MEDS: potassium chloride ER 20 mEq Tablet PO ×2 (06:20→20:41)
[2021-01-17 07:27] LABS: Glucose Point of Care 127 mg/dL (70-110)
--- NOTE | 2021-01-17 07:54 | PC.NURSE ---
0710 Bedside report received From Quang Serrato patient resting in bed no s/s of distress patient alert oriented and in no distress patient reports a headache this am states i need and aleve or something like that i can not take Tylenol was told a few years ago not to take it this nurse explained to patient I would have to contact the dr with his concerns due to only having orders for Tylenol or Hydrocodone which also contains Tylenol. patient verbalized understanding; no allergies noted on chart
[2021-01-17] MEDS: azithromycin 250 mg Tablet 500 MG PO (08:13)
[2021-01-17] MEDS: lisinopril 10 mg Tablet PO (08:13)
[2021-01-17] MEDS: bumetanide 0.25 mg/mL SDV 10 mL 2 MG IV (08:14)
--- NOTE | 2021-01-17 10:30 | PC.NURSE ---
Patient continues to report pain in nose and arm rated 8/10 spoke with patient to let him know i was working with provider due to statements of not being able to take Tylenol let patient know he had Tylenol and hydrocodone available educated patient the combinations of medications in hydrocodone patient verbalized understanding States I can take hydrocodone it doesn't bother me patient provided with medication intervention for pain
[2021-01-17] MEDS: HYDROcodone-acetaminophen 5-325 mg Tablet 1 TAB PO ×2 (10:32→20:42)
--- NOTE | 2021-01-17 11:06 | P.PN_ITS ---
Subjective Subjective: Interval history: This is my third time visiting this patient, he was eating his breakfast, I have never seen him using BiPAP during my evaluations however patient claims that he wears BiPAP at night and stays compliant with it I requested nurse to make him n.p.o. for now and strictly used BiPAP and get another ABG at 2:00 which will decide whether he would be discharged home Patient denying active chest pain shortness of breath he still feels bloated - 400 ml 1.2 L output, input 940 he is on 1.5 L fluid restriction Patient endorses productive cough greenish sputum production, he stayed afebrile Vitals/I&O/Wt Last Vital Signs Temp 97.8 F 01/17/21 07:00 Pulse 93 01/17/21 08:30 Resp 20 H 01/17/21 07:25 BP 148/83 01/17/21 07:00 Pulse Ox 93 01/17/21 08:30 01/16/21 01/17/21 01/17/21 21:59 06:59 14:59 Intake Total 480 / 480 Output Total 700 / 700 Balance -220 / -220 Weight last 48 hrs Weight 95.254 kg Physical Exam Narrative: EXAM NARRATIVE: On the second evaluation patient was on BiPAP, settings 20/10 saturating well, he open his eyes on verbal command did not endorse any new complaints Variable S1-S2 without RVR Bilateral assisted breath sounds with diminished airflow bilaterally no active wheezing or crackles Distended abdomen No STEMI 2+ pitting edema No skin wrinkling noticed today EOMI, PERRLA No neurological deficit Data : 01/16/21 05:39 01/17/21 04:36 A&P Assessment and plan (1) Cor pulmonale: Status: Acute (2) Acute on chronic respiratory failure with hypercapnia: Status: Acute (3) Decompensated COPD with exacerbation (chronic obstructive pulmonary disease): Status: Acute (4) DAYNE (obstructive sleep apnea): Status: Chronic Additional A&P Information Acute COPD exacerbation Grade D COPD chronic hypoxic hypercarbic respiratory failure Secondary to active smoking and noncompliance with BiPAP Patient has not used his BiPAP compliantly during this hospitalization, which is evident with his worsening PaCO2 however he is not showing any signs of neurological deficits, drowsiness, Asked nurse to make him n.p.o. strictly and get another blood gas after 8 hours, if blood gases showing improvement we will discharge him home as he has home arrangement for BiPAP and takes high doses of Lasix Acute on chronic hypercarbic respiratory failure secondary to problem #1 Cor pulmonale: 1.2 L urine output with negative balance of 400 I will discharge him on Bumex for his right-sided heart failure secondary to pulmonary par enchymal pathology 1.5 L fluid restriction, no active chest pain A. fib without RVR Off anticoagulating agents secondary to GI bleed Full code Currently n.p.o. until next ABG DVT prophylaxis Lovenox Patient has quit smoking Attestations Medical Necessity Statement*: Anticipating discharge later today versus tomorrow morning, secondary to noncompliance with BiPAP he will need another ABG to see improvement before further plan is advised Time Spent in Patient Care: 30mins Coding Level of Care Code Acute Assistant Track Coach for Chg Fwd Diagnoses Cor pulmonale I27.81 Acute on chronic respiratory failure with hypercapnia J96.22 Decompensated COPD with exacerbation (chronic obstructive pulmonary disease) J44.1 DAYNE (obstructive sleep apnea) G47.33
[2021-01-17 11:45] LABS: Glucose Point of Care 165 mg/dL (70-110)
--- NOTE | 2021-01-17 12:14 | PC.NURSE ---
Discussed BG results with Dr woodruff instructions to hold sliding scale dose at this time
[2021-01-17 14:15] LABS: ABG PH Result 7.33 (7.35-7.45); Alveolar-Arterial Oxygen Gradi 18.8 mmHg (5-10); Arterial Blood Gas Hematocrit 42.1 % (42-52); Base Excess ABG 12.4 mmol/L (-2.0-2.0); Blood Gas Allen Test Pos; Blood Gas Operator Identificat MONRO; Blood Gas Sample Site Radial, right; Blood Gas Sample Type Arterial; Carboxyhemoglobin < 0.0 %THgb (0.4-20.1); HCO3 ABG 41.9 mmol/L (22-26); HGB O2 Sat 93.1 % (95-100); Ionized Calcium Level - ABG 1.3 mmol/L (1.1-1.4); Methemoglobin 0.7 % (0.4-1.5); Oxygen Device BIPAP; Oxygen Saturation ABG 93.3; PO2 ABG 81.6 mmHg (80.0-100.0); Potassium Level - ABG 4.2 mmol/L (3.5-5.0); Total Hemoglobin 13.7 g/dL (14-18)
[2021-01-17 16:46] LABS: Glucose Point of Care 219 mg/dL (70-110)
[2021-01-17] MEDS: enoxaparin 40 mg/0.4 mL Syringe SUBCUT (17:19)
[2021-01-17 20:29] LABS: Glucose Point of Care 203 mg/dL (70-110)
[2021-01-17] MEDS: nicotine 14 mg Patch 1 PATCH TRANSDERMA (20:41)
[2021-01-17] MEDS: insulin glargine 100 units/1 mL 20 UNIT SUBCUT (20:42)
[2021-01-18] VITALS (12 sets, daily range): BP systolic 139–159; BP diastolic 63–82; PULSE 77–109; RESP 15–23; TEMP 36.6–37; O2SAT 89–96
[2021-01-18] MEDS: ipratropium-albuterol 3 mL Neb INHALATION ×3 (03:26→11:18)
[2021-01-18 03:30] LABS: ABG PH Result 7.34 (7.35-7.45); Arterial Blood Gas Hematocrit 40.2 % (42-52); Base Excess ABG 12.4 mmol/L (-2.0-2.0); Blood Gas Allen Test Pos; Blood Gas Sample Site Radial, left; Blood Gas Sample Type Arterial; HCO3 ABG 41.7 mmol/L (22-26); Oxygen Device NC; PO2 ABG 72.2 mmHg (80.0-100.0)
[2021-01-18 03:32] LABS: ABG PCO2 77.7 mmHg (35-45)
[2021-01-18] MEDS: HYDROcodone-acetaminophen 5-325 mg Tablet 1 TAB PO (04:02)
[2021-01-18 04:46] LABS: Anion Gap 10.5 (5-19); Blood Urea Nitrogen 28 mg/dL (8-23); Calcium 8.6 mg/dL (8.5-10.5); Carbon Dioxide 39 mmol/L (22-29); Chloride 94 mmol/L (98-107); Glomerular Filtration Rate 85.2 mL/min (90-130); Glucose 141 mg/dL (65-115); Osmolality Calculated 296 mOsm/kg (285-295); Potassium 4.5 mmol/L (3.5-5.1); Sodium 139 mmol/L (136-145)
[2021-01-18] MEDS: roflumilast 500 mcg Tablet PO (05:27)
[2021-01-18] MEDS: amlodipine 5 mg Tablet PO (05:28)
[2021-01-18] MEDS: pantoprazole DR 40 mg Tablet PO (05:28)
[2021-01-18] MEDS: atorvastatin 40 mg Tablet PO (05:28)
[2021-01-18] MEDS: methIMAzole 5 MG Tablet 2.5 MG PO (05:28)
[2021-01-18] MEDS: potassium chloride ER 20 mEq Tablet PO (05:28)
[2021-01-18] MEDS: dilTIAZem ER (24HR) 240 mg Capsule PO (05:28)
[2021-01-18 06:51] LABS: Glucose Point of Care 115 mg/dL (70-110)
[2021-01-18] MEDS: bumetanide 0.25 mg/mL SDV 10 mL 2 MG IV (08:16)
[2021-01-18] MEDS: azithromycin 250 mg Tablet 500 MG PO (08:16)
[2021-01-18] MEDS: lisinopril 10 mg Tablet PO (08:16)
--- NOTE | 2021-01-18 08:20 | PC.NURSE ---
PATIENT TAKEN OFF BIPAP AND 6LNC PLACED ON TO EAT BREAKFAST AND ADMINISTER PO MEDICATIONS. PLACED BACK ON BIPAP.
--- NOTE | 2021-01-18 09:20 | PM.DCS ---
Discharge Providers Date of Admission: 01/15/21 13:53 Date of Discharge: January 18, 2021 Attending Provider at Admission: Erick Cordova MD Attending Provider at Discharge: Erick Cordova MD Primary Care Provider: Nasreen Gomez Diagnoses at Discharge Discharge Diagnosis (1) Cor pulmonale: Status: Acute (2) Acute on chronic respiratory failure with hypercapnia: Status: Acute (3) Decompensated COPD with exacerbation (chronic obstructive pulmonary disease): Status: Acute (4) DAYNE (obstructive sleep apnea): Status: Chronic Reason for Visit Reason for Visit: SOB Hospital Course Hospital Course 65-year-old gentleman who has end-stage COPD BiPAP dependent, uses 4 L of oxygen in the day, was admitted to the hospital for management of COPD exacerbation secondary to active smoking. He follows up with Dr. Corley he also has preserved ejection fraction heart failure, A. fib, off anticoagulation secondary to GI bleed since May 2019. He presented to the hospital with chief complaint of shortness of breath which started roughly 2 weeks ago he has noticed more sputum production and coughing spells, he was noticing greenish sputum production however no fever, sinusitis recent cold-like symptoms. In the ER he was diagnosed with COPD exacerbation with worsening hypercapnia. His respiratory distress improved with BiPAP usage however he stayed noncompliant during his hospitalization, I saw him multiple times in 48 hours and he was not wearing his BiPAP mask which is evident with worsening ABG in EMR. However after counseling and reinforcement and involving nurses he was able to stay compliant with BiPAP and ABG revealed improvement in hypercapnia however he was never somnolent no signs of acute worsening during hospitalization he never required any intubation. No signs of consolidation were evident on chest imaging. CTA ruled out pulmonary embolism. Patient is stating that he has quit smoking on January 14 He is stating that he has BiPAP at home and use it compliantly. He will be discharged on azithromycin for anti-inflammatory effect because of his end-stage COPD. He has features of cor pulmonale and diuresed very well, 2 L in last 24 hours with Bumex. At home he takes Lasix 80 mg twice a day, it will be changed to Bumex. He is counseled to take 2 mg of Bumex every day and if needed can take extra dose in the afternoon Physical Exam Narrative: EXAM NARRATIVE: Patient was eating his breakfast this morning off BiPAP was saturating well on 4 L nasal cannula No acute respite distress Has mild wheezing however he has very poor respiratory effort and diminished breath sounds bilaterally Has features of cor pulmonale Bilateral lower extremity edema 2+ Patient stays in semi-Cronin position Abdomen distended central obesity No active cyanosis or gangrene of lower extremities No central cyanosis noted on supplemental oxygen EOMI, PERRLA no neurological left Discharge Data Data Completed and Pending: Completed Studies During Hospitalization Category Date Time Status CT angio chest PE protcl [id number] Stat Cat Scan 01/15/21 13:55 Completed XR chest 1V aftab ble [id number] Stat Exams 01/15/21 11:17 Completed Labs from last 24 hours 01/18/21 01/18/21 01/18/21 06:37 03:24 03:20 Specimen Type Arterial Sample Site Radial, left ABG pH 7.34 L ABG pCO2 77.7 H* ABG pO2 72.2 L ABG HCO3 41.7 H ABG O2 Saturation ABG Base Excess 12.4 H Gee Test Pos A-a O2 Gradient Hematocrit 40.2 L Hgb O2 Saturation Carboxyhemoglobin Methemoglobin Total Hemoglobin Sodium 139 Potassium 4.5 Glucose 141 H Ionized Calcium O2 Delivery Device Nc O2 Liters/Min 6.0 FiO2 Electrical Appliance Repairer ID ellpe Chloride 94 L Carbon Dioxide 39 H Anion Gap 10.5 BUN 28 H Creatinine 0.9 GFR Calculation 85.2 L POC Glucose 115 H Calculated Osmolal ity 296 H Calcium 8.6 01/17/21 01/17/21 01/17/21 19:32 16:28 14:03 Specimen Type Arterial Sample Site Radial, right ABG pH 7.33 L ABG pCO2 79.0 H* ABG pO2 81.6 ABG HCO3 41.9 H ABG O2 Saturation 93.3 ABG Base Excess 12.4 H Gee Test Pos A-a O2 Gradient 18.8 H Hematocrit 42.1 Hgb O2 Saturation 93.1 L Carboxyhemoglobin < 0.0 L Methemoglobin 0.7 Total Hemoglobin 13.7 L Sodium 136.0 Potassium 4.2 Glucose 126.0 H Ionized Calcium 1.3 O2 Delivery Device Bipap O2 Liters/Min FiO2 45.0 Electrical Appliance Repairer ID [place] Chloride Carbon Dioxide Anion Gap BUN Creatinine GFR Calculation POC Glucose 203 H 219 H Calculated Osmolal ity Calcium 01/17/21 11:39 Specimen Type Sample Site ABG pH ABG pCO2 ABG pO2 ABG HCO3 ABG O2 Saturation ABG Base Excess Gee Test A-a O2 Gradient Hematocrit Hgb O2 Saturation Carboxyhemoglobin Methemoglobin Total Hemoglobin Sodium Potassium Glucose Ionized Calcium O2 Delivery Device O2 Liters/Min FiO2 Electrical Appliance Repairer ID Chloride Carbon Dioxide Anion Gap BUN Creatinine GFR Calculation POC Glucose 165 H Calculated Osmolal ity Calcium Vitals: Last Vital Signs Temp 98.6 F 01/18/21 08:00 Pulse 93 01/18/21 08:00 Resp 16 01/18/21 08:00 BP 159/75 01/18/21 08:00 Pulse Ox 90 01/18/21 08:00 Discharge Plan Discharge Patient Disposition: Home Condition: Stable Prescriptions: New azithromycin 500 mg tablet 500 mg PO DAILY 7 Days Qty: 7 RF: 0 bumetanide 2 mg tablet 2 mg PO BID 30 Days Qty: 60 RF: 3 Continued Trelegy Ellipta 100-62.5-25 mcg blister with device 1 inh INHALATION Q24H 60 Days Qty: 60 RF: 3 hydrocodone-acetaminophen 5-325 mg tablet 1 tab PO Q6H PRN (Reason: pain) Qty: 30 RF: 0 trazodone 50 mg Tablet 50 mg PO BEDTIME@2100 RF: 0 sodium chloride [Saline Mist] 0.65 % Aerosol,[place] 1 spray nasal PRN PRN (Reason: Dryness) Qty: 0 RF: 0 albuterol sulfate 1.25 mg/3 mL Solution For Nebulization 1.25 mg INHALATION Q4H PRN (Reason: Shortness Of Breath) 30 Days Qty: 30 RF: 3 Basaglar KwikPen U-100 Insulin 100 unit/mL (3 mL) Insulin Pen 20 unit SUBCUT BEDTIME 30 Days Qty: 1 RF: 3 amlodipine 5 mg Tablet 5 mg PO DAILY@0700 RF: 0 methimazole 5 mg tablet 2.5 mg PO DAILY@0700 RF: 0 Cartia XT 240 mg capsule,extended release 24hr 240 mg PO DAILY@0700 RF: 0 omeprazole 20 mg capsule,delayed release(DR/EC) 20 mg PO DAILY@0700 RF: 0 digoxin 125 mcg (0.125 mg) tablet 125 mcg PO DAILY@0700 RF: 0 rosuvastatin 10 mg tablet 10 mg PO DAILY@0700 RF: 0 Januvia 50 mg tablet 50 mg PO DAILY@0700 RF: 0 Daliresp 500 mcg tablet 500 mcg PO DAILY@0700 RF: 0 potassium chloride 20 mEq tablet extended release 20 meq PO BID@07,2099 RF: 0 Discontinued Lasix 40 mg tablet 40 mg PO BID@07,2100 RF: 0 Discharge Orders: Discharge Order (Routine); Ordered 01/18/21 Ordered By: Erick Cordova Referrals: Nasreen Gomez, PA [Primary Care Provider] - Discharge Diet: Cardiac and Diabetic Discharge Activity: Increase activity as tolerated and Cpap/Bipap as instructed Activity Restrictions/Additional Instructions: Please use BiPAP at night and if needed in the daytime as well if she noticed heavy breathing and more shortness of breath I have discontinue Lasix and started you on Bumex 2 mg You can start taking Bumex 2 mg in the daytime and if needed can repeat the dose in the afternoon Please use azithromycin for 7 days and then discontinue, follow-up with Dr. Corley as routine follow-up I congratulate you for quitting smoking Discharge Attestations Time Spent in Discharge Care*: less than 30 min Status at Discharge: Cognitive status at discharge: cognitively intact, Behavioral status at discharge: cooperative, Quality Metrics Clinical Quality Measures During this hospital stay, did patient experience: None Coding Level of Care Code Acute [facility] note Diagnoses Cor pulmonale I27.81 Acute on chronic respiratory failure with hypercapnia J96.22 Decompensated COPD with exacerbation (chronic obstructive pulmonary disease) J44.1 DAYNE (obstructive sleep apnea) G47.33
[2021-01-18 10:52] LABS: Glucose Point of Care 206 mg/dL (70-110)
--- NOTE | 2021-01-18 11:00 | DCPLANNER ---
IMM completed with pt on 01/18/21 @ 7512. Copy of rights given to pt.
== END 2021-01-18 12:17 | disposition home or self-care (01) ==
LOC: ER 14:00 → CSU 01-16 06:42
PROVIDERS: Admitting Provider Internal Medicine; Emergency Provider Family Medicine; PCP Physician Assistant; Visit Provider Internal Medicine
DX: I27.81 Cor pulmonale (chronic) (principal); J96.22 Acute and chronic respiratory failure with hypercapnia; J44.1 Chronic obstructive pulmonary disease with (acute) exacerbation; G47.33 Obstructive sleep apnea (adult) (pediatric); F17.210 Nicotine dependence, cigarettes, uncomplicated; Z99.81 Dependence on supplemental oxygen; I25.10 Atherosclerotic heart disease of native coronary artery without angina pectoris
CPT/HCPCS: 36415; 36416; 36600; 71045; 71275; 80048; 80051; 80053; 80162; 81001; 82330; 82803; 82805; 82962; 83880; 84484; 85025; 87426; 87635; 93005; 94640; 94660; 96361; 96365; 96372; 96375; 99291; G0378; J1650; J1815 ×2; J1956; J2930; J3490; Q0144; Q9967

== ENCOUNTER 2021-04-01 13:26 | Outpatient (RCR) | payer MEDICARE, MEDICAID, SELFPAY | END 2021-04-05 23:59 | disposition home or self-care (01) | LOC: PULRHB 13:26 | PROVIDERS: PCP Physician Assistant; Visit Provider Internal Medicine Critical Care Medicine | DX: J96.92 Respiratory failure, unspecified with hypercapnia (principal) | CPT/HCPCS: 94618 ==

== ENCOUNTER 2021-04-06 06:00 | Outpatient (RCR) | payer MEDICARE, MEDICAID, SELFPAY | END 2021-05-05 23:59 | disposition home or self-care (01) | LOC: PULRHB 06:00 | PROVIDERS: PCP Physician Assistant; Visit Provider Internal Medicine Critical Care Medicine | DX: J96.12 Chronic respiratory failure with hypercapnia (principal) | CPT/HCPCS: G0239 ==

== ENCOUNTER 2021-05-06 06:00 | Outpatient (RCR) | payer MEDICARE, MEDICAID, SELFPAY | END 2021-06-05 23:59 | disposition home or self-care (01) | LOC: PULRHB 06:00 | PROVIDERS: PCP Physician Assistant; Visit Provider Internal Medicine Critical Care Medicine | DX: J96.01 Acute respiratory failure with hypoxia (principal) | CPT/HCPCS: G0238; G0239; G0424 ==

== ENCOUNTER 2021-06-06 06:00 | Outpatient (RCR) | payer MEDICARE, MEDICAID, SELFPAY | END 2021-07-06 23:59 | disposition home or self-care (01) | LOC: PULRHB 06:00 | PROVIDERS: PCP Physician Assistant; Visit Provider Internal Medicine Critical Care Medicine | DX: J96.92 Respiratory failure, unspecified with hypercapnia (principal) | CPT/HCPCS: G0237; G0238; G0239 ==

== ENCOUNTER 2021-07-04 15:54 | Emergency (ER) | payer MEDICARE, MEDICAID, SELFPAY ==
[2021-07-04 15:55] VITALS: BP 147/85; PULSE 83; RESP 22; TEMP 36.9; O2SAT 78; BMI 35.2
--- NOTE | 2021-07-04 16:28 | XRR_ITS ---
PROCEDURE INFORMATION: Exam: XR Chest Exam date and time: 07/04/2021 4:28 PM Age: 65 years old Clinical indication: Shortness of breath; Additional info: SOB TECHNIQUE: Imaging protocol: XR of the chest. Views: 1 view. COMPARISON: CR XR chest 1V portable [id number] 01/15/2021 11:41 AM FINDINGS: Lungs: Bibasilar right greater than left atelectasis versus infiltrate. Pleural spaces: Unremarkable. No pleural effusion. No pneumothorax. Heart/Mediastinum: Cardiomegaly. Bones/joints: Unremarkable. XR/XR chest 1V portable [id number] IMPRESSION: 1. Cardiomegaly. 2. Bibasilar right greater than left atelectasis versus infiltrate.
--- NOTE | 2021-07-04 16:29 | ECG_ITS ---
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 Measurements Intervals [place] Rate: 89 P: 64 GA: 199 QRS: 2 QRSD: 102 T: 67 QT: 358 QTc: 437 Interpretive Statements SINUS RHYTHM POSSIBLE LEFT ATRIAL ENLARGEMENT [-0.1mV P-WAVE IN V1/V2] INCOMPLETE RIGHT BUNDLE BRANCH BLOCK [90+ ms QRS DURATION, TERMINAL R IN V1/V2, 40+ ms S IN I/aVL/V4/V5/V6] PROBABLE INFERIOR MYOCARDIAL INFARCTION , PROBABLY OLD [35 ms Q WAVE IN II/aVF] Compared to ECG 01/15/2021 17:35:20 First degree AV block no longer present Myocardial infarct finding still present Electronically Signed On 07-04-2021 19:46:14 CDT by Brian Davis M.D. [id number]
--- NOTE | 2021-07-04 16:30 | ED_ITS ---
HPI - SOB/Dyspnea General: Chief Complaint: ER Hold Stated Complaint: SOB; COPD Time Seen by Provider: 07/04/21 16:13 Source: patient, EMS, RN notes reviewed and old records reviewed Mode of arrival: EMS Limitations: no limitations History of Present Illness: HPI Narrative: Patient is a 65-year-old male with a history of COPD, congestive heart failure, atrial fibrillation, chronic respiratory failure who is on oxygen at 5 to 6 L/min at home. He presents to the emergency department with a 4-day history of worsening cough, productive of sputum, shortness of breath and weakness. He denies any fever, denies any sick contacts. He has received his first dose of the COVID-19 vaccine and is scheduled to receive the second dose in 2 days. MD elicited complaint: shortness of breath and cough Pertinent past history: COPD and congestive heart failure Timing: constant Severity: severe Exacerbating factors: nothing Relieving factors: nothing Known history of: COPD and congestive heart failure Associated symptoms: Reports cough; Deny abdominal pain, chest congestion, chest pain, diaphoresis, dizziness, extremity pain, fever(s), hemoptysis, lightheadedness, myalgias, nausea, orthopnea, palpitations, paresthesias, polydipsia, polyuria, rash, sense of impending doom, syncope or vomiting Treatment prior to arrival: oxygen and bronchodilator Review of Systems General: Reports: 10 or more systems reviewed and unremarkable except in HPI and below Const: Denies: fever(s) or diaphoresis Card: Denies: chest pain, palpitations, lightheadedness, syncope or orthopnea Resp: Denies: hemoptysis or chest congestion GI: Denies: abdominal pain, nausea or vomiting Musc: Denies: extremity pain Neuro: Denies: dizziness Endo: Denies: polyuria or polydipsia PFS ED PFSH: Medical History Acute on chronic respiratory failure with hypoxia and hypercapnia Atrial fibrillation paroxysmal long-standing; not on anticoagulation due to history GI bleed 2018 while on eliquis BMI 30.0-30.9,adult CAD (coronary artery disease) CHF (congestive heart failure) 12/05/2021 EF 65% with grade 1 diastolic dysfunction Chronic kidney disease, stage II (mild) Chronic respiratory failure with hypoxia COPD (chronic obstructive pulmonary disease) Gold Class D, centrolobular Cor pulmonale COVID-19 (~09/2021) Diabetes Diabetes mellitus, type II GERD (gastroesophageal reflux disease) History of Khan's palsy History of GI bleed (~2018) While on eliquis History of PFTs 03/2020 obstructive and restrictive components described History of sleep study (~2012) Hyperlipidemia Hypertension Hyperthyroidism Nicotine addiction Noncompliance On home oxygen therapy 5L DAYNE (obstructive sleep apnea) Uses bilevel positive airway pressure (BPAP) ventilation at home Surgical History H/O hernia repair (~2015) ventral incisional with repair x 2, in 2016 with mesh and lysis of adhesions History of cardiac catheterization (~07/2021) patent stent per report History of colonoscopy History of coronary artery stent placement x 2 LAD (2005, 2010) History of endoscopy small bowel capsule History of esophagogastroduodenoscopy (EGD) Family History Mother Lung disease COPD Sister Cancer Social History Smoking and tobacco status: current some day smoker cigarettes Years cigarettes smoked: 47 [ Other cigarette details: Hx of 2PPD x 47 Years] Second hand smoke exposure: Yes Alcohol intake: current Alcohol intake frequency: holidays/special occasions only Caregiver/support person: Yes Lives independently: Yes Housing: [facility] Marital status: Single Current occupational status: disabled and 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 Current gender identity: Male Physical Exam Const: COMMON NORMALS: no acute distress, average body habitus, patient oriented x3, no limitations, healthy appearing, alert and well nourished HENMT: COMMON NORMALS: normocephalic, atraumatic and moist oral mucous me mbranes HEAD & SCALP: normocephalic and atraumatic Neck/C-Spine: COMMON NORMALS: no meningeal signs and no JVD Resp: COMMON NORMALS: No retractions, No use of accessory muscles and percussion normal EFFORT & INSPECTION: Yes tachypneic and Yes respiratory distress AUSCULTATION: wheezes throughout PERCUSSION: percussion normal Cardio: COMMON NORMALS: no JVD, regular rate, regular rhythm, S1 normal heart sound present, S2 normal heart sound present, No gallops present (Cardio), No clicks present (Cardio), No murmurs present (Cardio), No rub (Cardio) and Peripheral pulses 2+ throughout RATE: regular rate RHYTHM: regular rhythm HEART SOUNDS: S1 normal heart sound present and S2 normal heart sound present PERIPHERAL PULSES: Peripheral pulses 2+ throughout GI: COMMON NORMALS: Normal to inspection, nondistended, normoactive bowel sounds present, Soft to palpation, non-tender, No hepatosplenomegaly present, no masses and no bruits PALPATION: Yes Soft to palpation and Yes No hepatosplenomegaly present Extremity: COMMON NORMALS: normal to inspection, full ROM, capillary refill normal, no calf tenderness and no pedal edema Neuro: COMMON NORMALS: patient oriented x3 SENSORIUM/ORIENTATION: Yes alert MENINGEAL SIGNS: Yes no meningeal signs Skin: COMMON NORMALS: no rashes or lesions noted, no wounds, turgor normal, no jaundice, no petechiae and no mottling GENERAL SKIN EXAM: no rashes or les ions noted and turgor normal Course Consultations: Consultation #1: Discussed the patient with Dr. Bass, hospitalist. He would like a repeat ABG and if the CO2 is improving, then he will accept the patient. If it is not improving or is worsening, the patient will need an ICU and as we do not have any ICU beds available in the hospital he will need to be transferred. Time: 18:09 Vital Signs: Vital signs: Vital Signs Temperature 98.5 F 07/04/21 15:55 Pulse Rate 76 07/05/21 08:40 Respiratory Rate 18 07/05/21 08:40 Blood Pressure 119/76 07/05/21 08:40 Pulse Oximetry 95 07/05/21 08:40 MDM - SOB/Dyspnea MDM Narrative Medical decision making narrative: This 65 year old male with COPD and chronic respiratory failure, on oxygen at 5 lpm and BiPAP at night. He presented to the ED with worsening cough and productive sputum and in respiratory distress. He was in acute on chronic respiratory failure and CXR showed possible pneumonia. He was placed on a BiPAP, started on steroids, antibiotics, and beta agonist and admitted for further evaluation and management. Medical Records Attestation: I reviewed the patient's medical records. Lab Data Attestation: I reviewed the patient's lab results. Result diagrams: 07/04/21 16:00 07/05/21 03:39 Labs: Lab Results 07/04/21 07/04/21 07/04/21 16:00 16:00 16:00 WBC 9.7 10^3/uL 10^3/uL (4.0-10.0) RBC 5.76 10^6/uL H 10^6/uL (4.1-5.3) Hgb 16.9 g/dL H g/dL (11.7-16.6) Hct 50.9 % % (42.0-52.0) MCV 88.4 fl fl (80-94) MCH 29.3 pg pg (28.0-34.0) MCHC 33.2 g/dL g/dL (30.0-36.0) RDW 15.5 % H % (12.1-15.1) Plt Count 324 10^3/cmm 10^3/cmm (130-400) MPV 10.4 fL fL (7.4-10.4) Neut % (Auto) 78.9 % % Lymph % (Auto) 9.9 % % Clarke % (Auto) 9.3 % % Eos % (Auto) 0.7 % % Baso % (Auto) 0.7 % % Neut # (Auto) 7.62 10^3/uL 10^3/uL (1.8-7.7) Lymph # (Auto) 1.0 10^3/uL 10^3/uL (0.8-4.8) Clarke # (Auto) 0.9 10^3/uL 10^3/uL (0.2-0.9) Eos # (Auto) 0.1 10^3/uL 10^3/uL (0.0-0.8) Baso # (Auto) 0.1 10^3/uL 10^3/uL (0.0-0.1) Nucleated RBC % (auto) 0 % % Nucleated RBCs # 0.0 /100WBC /100WBC Specimen Type Sample Site ABG pH ABG pCO2 ABG pO2 ABG HCO3 ABG Base Excess Gee Test Hematocrit Hgb O2 Saturation Carboxyhemoglobin Methemoglobin Total Hemoglobin O2 Delivery Device O2 Liters/Min FiO2 Pelletizer Tender ID Blood Gas Notified Time Sodium 132 mmol/L L mmol/L (136-145) Potassium 2.9 mmol/L L mmol/L (3.5-5.1) Chloride 78 mmol/L L mmol/L (98-107) Carbon Dioxide 50 mmol/L H* mmol/L (22-29) Anion Gap 6.9 (5-19) BUN 16 mg/dL mg/dL (8-23) Creatinine 0.8 mg/dL mg/dL (0.7-1.2) GFR Calculation 97.6 mL/min mL/min (90-130) Glucose 154 mg/dL H mg/dL (65-115) Calculated Osmolality 278 mOsm/kg L mOsm/kg (285-295) Lactic Acid 0.8 mmol/L mmol/L (0.5-2.2) Calcium 8.9 mg/dL mg/dL (8.5-10.5) Total Bilirubin 0.3 mg/dL mg/dL (0.15-1.2) AST 16 U/L U/L (0-40) ALT 14 U/L U/L (0-41) Alkaline Phosphatase 88 IU/L IU/L (40-130) Troponin T Baseline Troponin T 120 Minute Delta Troponin T Troponin T Hi Sens 6Hr Troponin T Hi Sens 6Hr Delta NT-Pro-B Natriuret Pep 1993 pg/mL H pg/mL (0-125) Total Protein 6.6 g/dL g/dL (6.6-8.7) Albumin 3.8 g/dL g/dL (3.5-5.2) Globulin 2.8 g/dL g/dL (1.3-4.6) Digoxin Nasal/Oral COVID-19 PCR SARS-CoV-2 Ag (Rapid) 07/04/21 07/04/21 07/04/21 16:00 16:35 17:00 WBC RBC Hgb Hct MCV MCH MCHC RDW Plt Count MPV Neut % (Auto) Lymph % (Auto) Clarke % (Auto) Eos % (Auto) Baso % (Auto) Neut # (Auto) Lymph # (Auto) Clarke # (Auto) Eos # (Auto) Baso # (Auto) Nucleated RBC % (auto) Nucleated RBCs # Specimen Type Arterial Sample Site Radial, left ABG pH 7.43 (7.35-7.45) ABG pCO2 83.9 mmHg H* mmHg (35-45) ABG pO2 74.3 mmHg L mmHg (80.0-100.0) ABG HCO3 56.1 mmol/L H mmol/L (22-26) ABG Base Excess 25.1 mmol/L H mmol/L (-2.0-2.0) Gee Test Pos Hematocrit 48.9 % % (42-52) Hgb O2 Saturation 87.6 % L % (95-100) Carboxyhemoglobin 6.7 %THgb %THgb (0.4-20.1) Methemoglobin 0.8 % % (0.4-1.5) Total Hemoglobin 16.0 g/dL g/dL (14-18) O2 Delivery Device Nc O2 Liters/Min 5.0 % % FiO2 40.0 % % Pelletizer Tender ID Ed Blood Gas Notified Time 1725 Sodium Potassium Chloride Carbon Dioxide Anion Gap BUN Creatinine GFR Calculation Glucose Calculated Osmolality Lactic Acid Calcium Total Bilirubin AST ALT Alkaline Phosphatase Troponin T Baseline 58 ng/L H ng/L (0-15) Troponin T 120 Minute Delta Troponin T Troponin T Hi Sens 6Hr Troponin T Hi Sens 6Hr Delta NT-Pro-B Natriuret Pep Total Protein Albumin Globulin Digoxin Nasal/Oral COVID-19 PCR SARS-CoV-2 Ag (Rapid) Negative (Negative) 07/04/21 07/04/21 07/04/21 18:39 19:25 22:02 WBC RBC Hgb Hct MCV MCH MCHC RDW Plt Count MPV Neut % (Auto) Lymph % (Auto) Clarke % (Auto) Eos % (Auto) Baso % (Auto) Neut # (Auto) Lymph # (Auto) Clarke # (Auto) Eos # (Auto) Baso # (Auto) Nucleated RBC % (auto) Nucleated RBCs # Specimen Type Arterial Sample Site Radial, right ABG pH 7.46 H (7.35-7.45) ABG pCO2 76.9 mmHg H* mmHg (35-45) ABG pO2 65.3 mmHg L mmHg (80.0-100.0) ABG HCO3 54.5 mmol/L H mmol/L (22-26) ABG Base Excess 24.2 mmol/L H mmol/L (-2.0-2.0) Gee Test Pos Hematocrit 51.1 % % (42-52) Hgb O2 Saturation Carboxyhemoglobin Methemoglobin Total Hemoglobin O2 Delivery Device Bipap O2 Liters/Min FiO2 40.0 % % Pelletizer Tender ID ellpe Blood Gas Notified Time Sodium Potassium Chloride Carbon Dioxide Anion Gap BUN Creatinine GFR Calculation Glucose Calculated Osmolality Lactic Acid Calcium Total Bilirubin AST ALT Alkaline Phosphatase Troponin T Baseline Troponin T 120 Minute 55.71 ng/L H ng/L (0-15) Delta Troponin T -2.29 ABS# L ABS# (0-10) Troponin T Hi Sens 6Hr 49.30 ng/L H ng/L (0-15) Troponin T Hi Sens 6Hr Delta -8.70 ng/L L ng/L (0-12) NT-Pro-B Natriuret Pep Total Protein Albumin Globulin Digoxin Nasal/Oral COVID-19 PCR SARS-CoV-2 Ag (Rapid) 07/05/21 07/05/21 07/05/21 03:39 03:39 10:18 WBC RBC Hgb Hct MCV MCH MCHC RDW Plt Count MPV Neut % (Auto) Lymph % (Auto) Clarke % (Auto) Eos % (Auto) Baso % (Auto) Neut # (Auto) Lymph # (Auto) Clarke # (Auto) Eos # (Auto) Baso # (Auto) Nucleated RBC % (auto) Nucleated RBCs # Specimen Type Sample Site ABG pH ABG pCO2 ABG pO2 ABG HCO3 ABG Base Excess Gee Test Hematocrit Hgb O2 Saturation Carboxyhemoglobin Methemoglobin Total Hemoglobin O2 Delivery Device O2 Liters/Min FiO2 Pelletizer Tender ID Blood Gas Notified Time Sodium 133 mmol/L L mmol/L (136-145) Potassium 3.6 mmol/L mmol/L (3.5-5.1) Chloride 81 mmol/L L mmol/L (98-107) Carbon Dioxide 45 mmol/L H* mmol/L (22-29) Anion Gap 10.6 (5-19) BUN 22 mg/dL mg/dL (8-23) Creatinine 1.0 mg/dL mg/dL (0.7-1.2) GFR Calculation 75.5 mL/min L mL/min (90-130) Glucose 368 mg/dL H mg/dL (65-115) Calculated Osmolality 294 mOsm/kg mOsm/kg (285-295) Lactic Acid Calcium 8.4 mg/dL L mg/dL (8.5-10.5) Total Bilirubin 0.2 mg/dL mg/dL (0.15-1.2) AST 12 U/L U/L (0-40) ALT 13 U/L U/L (0-41) Alkaline Phosphatase 79 IU/L IU/L (40-130) Troponin T Baseline Troponin T 120 Minute Delta Troponin T Troponin T Hi Sens 6Hr Troponin T Hi Sens 6Hr Delta NT-Pro-B Natriuret Pep Total Protein 6.3 g/dL L g/dL (6.6-8.7) Albumin 3.4 g/dL L g/dL (3.5-5.2) Globulin 2.9 g/dL g/dL (1.3-4.6) Digoxin 0.9 ng/mL ng/mL (0.6-1.2) Nasal/Oral COVID-19 PCR Not detected SARS-CoV-2 Ag (Rapid) Imaging Data^ CXR: Attestation: I personally reviewed and interpreted this imaging study as follows: Radiologist's impression: [address] [id number] ReportSigned Patient: Nagi Cuellar #: [id number]: [id number]#:[id number]/Sex: 65 / MADM Date: 07/04/21Loc: ERRoom/Bed:Attending Dr: Ordering Provider/Ordering MD: Johnny Malloy MD, [facility] [place] Date of Service: 07/04/21 Procedure(s): XR chest 1V portable [id number] Accession Number(s): [id number] Report Number: [id number] PROCEDURE INFORMATION: Exam: XR Chest Exam date and time: 07/04/2021 4:28 PM Age: 65 years old Clinical indication: Shortness of breath; Additional info: SOB TECHNIQUE: Imaging protocol: XR of the chest. Views: 1 view. COMPARISON: CR XR chest 1V portable [id number] 01/15/2021 11:41 AM FINDINGS: Lungs: Bibasilar right greater than left atelectasis versus infiltrate. Pleural spaces: Unremarkable. No pleural effusion. No pneumothorax. Heart/Mediastinum: Cardiomegaly. Bones/joints: Unremarkable. XR/XR chest 1V portable [id number] IMPRESSION: 1. Cardiomegaly. 2. Bibasilar right greater than left atelectasis versus infiltrate. Dictated By:Jovany Tobar MDSigned By:Jovany Tobar MDSigned Date/Time:07/04/21 1712DD/ 1711 EKG Data^ EKG 1: Attestation: I personally reviewed and interpreted this EKG as follows: EKG Interpretation Date: 07/04/21 EKG interpretation time: 16:39 Prior EKG tracings: not available for review Interpretation: sinus rhythm HR 84 bpm incomplete RBBB No ST changes EKG 2: Attestation: I personally reviewed and interpreted this EKG as follows: EKG Interpretation Date: 07/04/21 EKG interpretation time: 18:05 Interpretation: sinus rhythm HR 89 bpm incomplete RBBB No ST changes. No significant change from earlier. EKG 3: Attestation: I personally reviewed and interpreted this EKG as follows: EKG Interpretation Date: 07/04/21 EKG interpretation time: 22:25 Prior EKG tracings: available for review Interpretation: sinus rhythm HR [address] changes. No significant change from earlier today. Discharge Plan Discharge Patient Disposition: Home Clinical Impression: Acute and chronic respiratory failure, Pneumonia, CHF (congestive heart failure), Acute exacerbation of chronic obstructive airways disease Condition: Stable Prescriptions: Discontinued bumetanide 2 mg tablet 2 mg PO BID 30 Days Qty: 60 3RF furosemide 40 mg tablet 80 mg PO BID 0RF No Action Vitamin B12 Gummies 1 - 2 tab PO DAILY 0RF aspirin 81 mg tablet,delayed release (DR/EC) 81 mg PO QAM 0RF rosuvastatin 20 mg tablet 10 mg PO DAILY 0RF amiodarone [Pacerone] 200 mg tablet 200 mg PO DAILY 0RF metoprolol tartrate 25 mg Tablet 25 mg PO BID@0900,2100 Qty: 60 0RF Lantus Solostar U-100 Insulin 100 unit/mL (3 mL) insulin pen 15 unit SUBCUT BEDTIME Qty: 0 0RF amlodipine 5 mg Tablet 5 mg PO DAILY Qty: 30 0RF Januvia 50 mg tablet 50 mg PO QAM 0RF omeprazole 40 mg capsule,delayed release(DR/EC) 40 mg PO QAM 0RF potassium chloride 20 mEq tablet,ER particles/crystals 20 meq PO DAILY 0RF methimazole 5 mg tablet 2.5 mg PO QAM 0RF magnesium hydroxide [Milk of Magnesia] 400 mg/5 mL Suspension 30 ml PO DAILY PRN (Reason: Constipation) 0RF trazodone 100 mg Tablet 100 mg PO BEDTIME 0RF bisacodyl 10 mg Suppository 10 mg UT DAILY PRN (Reason: Constipation) 0RF Jardiance 25 mg Tablet 25 mg PO DAILY 0RF losartan 50 mg Tablet 50 mg PO DAILY 30 Days 0RF furosemide 40 mg Tablet 40 mg PO BID 60 Days Qty: 120 0RF gabapentin 100 mg Capsule 100 mg PO BEDTIME 30 Days 0RF ferrous gluconate 324 mg (37.5 mg iron) Tablet 324 mg PO BIDWM Qty: 60 0RF prednisone 20 mg tablet 20 mg PO DAILY 0RF Trelegy Ellipta 100-62.5-25 mcg blister with device 1 inh inhalation DAILY Qty: 60 8RF albuterol sulfate 2.5 mg /3 mL (0.083 %) Solution For Nebulization 2.5 mg INHALATION Q6H PRN (Reason: Shortness Of Breath) Qty: 3 3RF Yupelri 175 mcg/3 mL solution for nebulization 175 mcg inhalation DAILY Qty: 60 10RF Discharge Orders: Discharge ED (Routine); Ordered 07/05/21 Ordered By: Jany Eugene Referrals: Nasreen Gomez PA [Primary Care Provider] - 4-7 days Discharge Diet: Usual diet Discharge Activity: Resume usual activity Patient Instructions: Opioid Safety Activity Restrictions/Additional Instructions: follow up with your PCP in the next 4-7 days to monitor leg swelling, adjust lasix dose as needed Coding Level of Care Code ED Tyre Builder for Chg Fwd Exam Comprehensive
[2021-07-04 16:43] LABS: Basophils # 0.1 10^3/uL (0.0-0.1); Basophils % 0.7 %; Eosinophils # 0.1 10^3/uL (0.0-0.8); Eosinophils % 0.7 %; Hematocrit 50.9 % (42.0-52.0); Hemoglobin 16.9 g/dL (11.7-16.6); Lymphocytes % 9.9 %; Mean Corpuscular HGB Conc 33.2 g/dL (30.0-36.0); Mean Corpuscular Hemoglobin 29.3 pg (28.0-34.0); Mean Corpuscular Volume 88.4 fl (80-94); Mean Platelet Volume 10.4 fL (7.4-10.4); Monocytes # 0.9 10^3/uL (0.2-0.9); Monocytes % 9.3 %; Neutrophils # 7.62 10^3/uL (1.8-7.7); Neutrophils % 78.9 %; Nucleated Red Blood Cells % 0 %; Platelet Count 324 10^3/cmm (130-400); Red Blood Count 5.76 10^6/uL (4.1-5.3); Red Cell Distribution Width 15.5 % (12.1-15.1); White Blood Count 9.7 10^3/uL (4.0-10.0)
[2021-07-04 16:58] LABS: Troponin(5th) Baseline 58 ng/L (0-15)
[2021-07-04 17:03] LABS: Lactic Sepsis W/Reflex 0.8 mmol/L (0.5-2.2)
[2021-07-04 17:08] LABS: Alanine Aminotransferase 14 U/L (0-41); Albumin Level 3.8 g/dL (3.5-5.2); Alkaline Phosphatase 88 IU/L (40-130); Anion Gap 6.9 (5-19); Aspartate Amino Transferase 16 U/L (0-40); Blood Urea Nitrogen 16 mg/dL (8-23); Calcium 8.9 mg/dL (8.5-10.5); Chloride 78 mmol/L (98-107); Globulin 2.8 g/dL (1.3-4.6); Glomerular Filtration Rate 97.6 mL/min (90-130); Glucose 154 mg/dL (65-115); NT Pro B Type Natriuretic Pept 1993 pg/mL (0-125); Osmolality Calculated 278 mOsm/kg (285-295); Sodium 132 mmol/L (136-145); Total Bilirubin 0.3 mg/dL (0.15-1.2); Total Protein 6.6 g/dL (6.6-8.7)
[2021-07-04 17:18] LABS: Carbon Dioxide 50 mmol/L (22-29); Potassium 2.9 mmol/L (3.5-5.1)
[2021-07-04 17:25] LABS: Blood Gas Allen Test Pos; Blood Gas Operator Identificat ED; Blood Gas Sample Type Arterial; Methemoglobin 0.8 % (0.4-1.5); Oxygen Device NC
[2021-07-04 17:27] LABS: ABG PCO2 83.9 mmHg (35-45); Blood Gas Sample Site Radial, left
[2021-07-04 17:38] LABS: SARS Covid-2 Antigen Negative (Negative)
[2021-07-04 17:45] LABS: ABG PH Result 7.43 (7.35-7.45)
[2021-07-04 17:46] LABS: Base Excess ABG 25.1 mmol/L (-2.0-2.0); HCO3 ABG 56.1 mmol/L (22-26); PO2 ABG 74.3 mmHg (80.0-100.0)
[2021-07-04 17:47] VITALS: PULSE 86; RESP 19; O2SAT 94
[2021-07-04 17:47] LABS: Arterial Blood Gas Hematocrit 48.9 % (42-52); Blood Gas CCRB Time 1729
[2021-07-04 17:48] LABS: Carboxyhemoglobin 6.7 %THgb (0.4-20.1); HGB O2 Sat 87.6 % (95-100)
[2021-07-04] MEDS: cefTRIAXone 2,000 MG in sodium chloride 0.9% (plus) 50 ML 100 MG IV (19:09)
[2021-07-04] MEDS: FUROsemide 10 mg/mL SDV 4mL 40 MG IVP (19:09)
[2021-07-04 19:21] LABS: Troponin 5 2HR 55.71 ng/L (0-15); Troponin 5 2HR Delta -2.29 ABS# (0-10)
[2021-07-04 19:36] LABS: ABG PH Result 7.46 (7.35-7.45); Arterial Blood Gas Hematocrit 51.1 % (42-52); Base Excess ABG 24.2 mmol/L (-2.0-2.0); Blood Gas Allen Test Pos; Blood Gas Sample Site Radial, right; Blood Gas Sample Type Arterial; HCO3 ABG 54.5 mmol/L (22-26); Oxygen Device BIPAP; PO2 ABG 65.3 mmHg (80.0-100.0)
[2021-07-04 19:37] LABS: ABG PCO2 76.9 mmHg (35-45)
[2021-07-04] MEDS: azithromycin 500 MG in sodium chloride 0.9% 250 ML 250 MG IV (19:59)
[2021-07-04 21:13] VITALS: BP 139/76; PULSE 92; RESP 16; O2SAT 98
[2021-07-04] MEDS: potassium chloride premix 100 ML 25 MEQ IV (22:12)
--- NOTE | 2021-07-04 22:29 | ECG_ITS ---
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 Measurements Intervals [place] Rate: 87 P: 46 ME: 216 QRS: 4 QRSD: 105 T: 58 QT: 359 QTc: 434 Interpretive Statements SINUS RHYTHM WITH FIRST DEGREE AV BLOCK POSSIBLE LEFT ATRIAL ENLARGEMENT [-0.1mV P-WAVE IN V1/V2] INCOMPLETE RIGHT BUNDLE BRANCH BLOCK [90+ ms QRS DURATION, TERMINAL R IN V1/V2, 40+ ms S IN I/aVL/V4/V5/V6] MODERATE ST DEPRESSION [0.05+ mV ST DEPRESSION] Compared to ECG 07/04/2021 18:04:43 First degree AV block now present ST (T wave) deviation now present Myocardial infarct finding no longer present Electronically Signed On 07-05-2021 6:59:14 CDT by Brian Davis M.D. [id number]
[2021-07-04] MEDS: lidocaine 1% 5 ML in potassium chloride premix 100 ML 25 ML IV (22:31)
[2021-07-04] MEDS: sodium chloride 0.9% 1,000 ML 75 ML IV (23:24)
[2021-07-05 00:21] VITALS: PULSE 74; RESP 14; O2SAT 96
--- NOTE | 2021-07-05 03:03 | PC.NURSE ---
per Dr. Torre pt is to be discharged at 0600 this morning, Dr. Torre does still want am labs drawn before DC
--- NOTE | 2021-07-05 03:42 | PC.NURSE ---
pt refused [facility] Covid 19 swab
[2021-07-05 04:03] LABS: Alanine Aminotransferase 13 U/L (0-41); Albumin Level 3.4 g/dL (3.5-5.2); Alkaline Phosphatase 79 IU/L (40-130); Anion Gap 10.6 (5-19); Aspartate Amino Transferase 12 U/L (0-40); Blood Urea Nitrogen 22 mg/dL (8-23); Calcium 8.4 mg/dL (8.5-10.5); Chloride 81 mmol/L (98-107); Globulin 2.9 g/dL (1.3-4.6); Glomerular Filtration Rate 75.5 mL/min (90-130); Glucose 368 mg/dL (65-115); Osmolality Calculated 294 mOsm/kg (285-295); Potassium 3.6 mmol/L (3.5-5.1); Sodium 133 mmol/L (136-145); Total Bilirubin 0.2 mg/dL (0.15-1.2); Total Protein 6.3 g/dL (6.6-8.7)
[2021-07-05 04:04] LABS: Carbon Dioxide 45 mmol/L (22-29)
[2021-07-05 04:06] LABS: Digoxin 0.9 ng/mL (0.6-1.2)
[2021-07-05 05:22] VITALS: O2SAT 97
--- NOTE | 2021-07-05 07:00 | P.HP_ITS ---
Providers/Chief Complaint Primary Care Provider: Nasreen Gomez Chief Complaint: SOB; COPD History of Present Illness Nagi Cuellar is a 65 year old male with COPD, chronic hypoxic hypercapneic respiratory failure on home 02 5-6lpm, severe DAYNE on Bipap regularly however unable to use it recently as his mask is broken, RV dysf unction, LVH and diastolic dysfunction on metalozone and Bumex at home, A fib not on a/c due to h/o GI bleed. . Presents to the hospital today with worsening cough, productive of sputum, shortness of breath over the past week. No fever. On arrival noted to have ABG with 7.43/83.9/74.3/56.1 on 5 L/min nasal cannula. He was placed on BiPAP thereafter and has had improvement in his shortness of breath. Noted also to have elevated BNP at 1900, higher than recent baseline. Diffuse wheezing was no sima on initial presentation. He received Lasix 40 mg IV, Solu-Medrol 125 mg IV and was placed on BiPAP after which he is feeling improved. Chest x-ray today shows bibasilar right greater than left atelectasis versus infiltrate. Rapid Covid antigen is negative. Patient has received his first dose of COVID-19 vaccine a month ago due for a second in a few days. Review of Systems General: Reports: 10 or more systems reviewed and unremarkable except in HPI and below Const: Denies: fever(s), chills or body aches Eyes: Denies: change in vision, blurry vision or photophobia ENMT: Reports: hoarseness; Denies: throat pain, enlarged tonsils, odynophagia or nasal congestion Card: Denies: chest pain, palpitations, irregular heart rhythm, edema, swell ing of feet/ankles, lightheadedness, pre-syncope, dyspnea on exertion or orthopnea Resp: Denies: dyspnea, productive cough, non-productive cough, wheezing, stridor, pain on inspiration, change in phlegm color, hemoptysis or chest congestion GI: Denies: abdominal pain, nausea, vomiting, hematemesis, coffee ground emesis, dysphagia, heartburn, diarrhea, constipation, GI cramping, change in stool character, hematochezia or melena : Denies: flank pain, dysuria, urinary frequency, urinary urgency, urinary hesitancy or hematuria Musc: Denies: neck pain, back pain, extremity pain, joint swelling, joint warmth or deformity Neuro: Denies: headache(s), numbness in extremities, weakness in extremities, sensory changes, difficulty walking, frequent falls, dizziness, vertigo, behavioral changes, Slurred speech present or seizure-like activity Psych: Denies: anxiety, depression, suicidal ideation or homicidal ideation Endo: Denies: polyuria, polydipsia, tired all the time, cold intolerance or hot flashes Dov/Lymph: Denies: easy bruising or easy bleeding Medications/Allergies Home Medications Medication Instructions Recorded Confirmed Last Taken Type trazodone 50 mg PO BEDTIME@209911/20/19 07/04/21 07/03/21 History albuterol sulfate 1.25 mg INHALATION Q4H PRN 30 Days 11/22/19 07/04/21 01/14/21 Rx #30 appful sodium chloride [Saline Mist] 1 spray NASAL PRN PRN #0 ml 11/22/19 07/04/21 12/21/19 Rx hydrocodone-acetaminophen 1 tab PO Q6H PRN #30 tab 12/28/19 07/04/21 Unknown Rx Daliresp 500 mcg PO DAILY@0700 01/15/21 07/04/21 07/04/21 History Januvia 50 mg PO DAILY@0701/15/21 07/04/21 07/04/21 History amlodipine 5 mg PO DAILY@0700 01/15/21 07/04/21 07/04/21 History digoxin 125 mcg PO DAILY@0701/15/21 07/04/21 07/04/21 History diltiazem HCl [Cartia XT] 240 mg PO DAILY@0700 01/15/21 07/04/21 07/04/21 History methimazole 2.5 mg PO DAILY@0701/15/21 07/04/21 07/04/21 History omeprazole 20 mg PO DAILY@0700 01/15/21 07/04/21 07/04/21 History potassium chloride 20 meq PO BID@0700,2100 01/15/21 07/04/21 07/04/21 History rosuvastatin 10 mg PO DAILY@0701/15/21 07/04/2121 History bumetanide 2 mg PO BID 30 Days #60 tab 01/18/21 07/04/21 07/04/21 Rx tiotropium bromide 1.25 2 puff INHALATION DAILY #4 g 03/24/21 07/04/21 07/04/21 Rx mcg/actuation mist for inhalation metolazone 2.5 mg tablet 2.5 mg PO .Every other day 30 Days 05/17/21 07/04/21 07/04/21 Rx #30 tab dapagliflozin [Farxiga] 10 mg PO DAILY 07/04/21 07/04/21 07/04/21 History furosemide 80 mg PO BID 07/04/21 07/04/21 07/04/21 History insulin glargine [Lantus Solostar 30 unit SUBCUT BEDTIME 07/04/21 07/04/21 07/03/21 History U-100 Insulin] Allergies Allergy/AdvReac Type Severity Reaction Status Date / Time No Known Allergies Allergy Verified 05/18/21 11:54 PFSH Acute PFSH: Medical History (Updated 07/05/21 @ 00:01 by Jany Eugene MD) Acute exacerbation of chronic obstructive airways disease Atrial fibrillation -Currently normal sinus rhythm, heart rate controlled -continue Cardizem, digoxin -Has been off anticoagulation secondary to GI bleed while on Eliquis in May 2019 -Telemetry monitoring CAD (coronary artery disease) CHF (congestive heart failure) Congestive heart failure -Clinically does not appear decompensated -has known history of chronic diastolic CHF, last echo shows ejection fraction of 60% with grade 1 diastolic dysfunction (04/2018) -continue Lasix, potassium COPD (chronic obstructive pulmonary disease) Cor pulmonale Diabetes -most recent A1c-5.8 -Insulin dependent at baseline -Accu-Cheks, scheduled insulin, ISS -Hypoglycemia precautions; hyperglycemic likely secondary to steroids Heart attack Hypertension -hypertensive, continue to monitor vital signs -continue oral antihypertensives; increased dose of amlodipine Hypoxia Nicotine addiction DAYNE (obstructive sleep apnea) Surgical History H/O hernia repair Family History Mother Lung disease COPD Sister Cancer Social History Smoking and tobacco status: current every day smoker cigarettes Years cigarettes smoked: 47 [ Other cigarette details: Hx of 2PPD x 47 Years ] Quit status (tobacco): considering quitting Second hand smoke exposure: Yes Smoking risk assessment/counseling performed?: Yes Alcohol intake: current Alcohol intake frequency: holidays/special occasions only Desire information about alcohol rehabilitation?: No Counseling given: No Desire information about substance/drug rehabilitation?: No Counseling given: No Lives independently: Yes Household members: none Marital status: Single Current occupational status: disabled and 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 History of recent travel: No Current gender identity: Male Vitals/I&O/Wt Last Vital Signs Temp 98.5 F 07/04/21 15:55 Pulse 92 07/04/21 21:13 Resp 16 07/04/21 21:13 BP 139/76 07/04/21 21:13 Pulse Ox 98 07/04/21 21:13 07/04/21 07/04/21 07/05/21 14:59 22:59 06:59 Intake Total 303.333 / 303.333 Balance 303.333 / 303.333 Weight last 48 hrs Weight 96.162 kg Physical Exam Narrative: EXAM NARRATIVE: General: No acute distress, AO x3 HEENT: PERRLA, pupils bilaterally equal and reactive, pallors not present Chest: Normal vesicular breath sounds, no added sounds, equal good air entry bilaterally CVS: S1-S2 regular, no murmurs, no tachycardia, no gallops, no rubs Abdomen: Soft, nontender, no organomegaly, bowel sounds present Neuro: No focal deficits, no facial deformity, AO x3, power 5/5 in all limbs EXT: B/L LE pitting edema 2+ Data : 07/04/21 16:00 07/05/21 03:39 A&P Assessment and plan (1) Acute exacerbation of chronic obstructive airways disease: Admit to MedSurg DuoNeb inhalation every 6 scheduled Budesonide inhalation every 12 schedule Systemic steroids methylprednisolone 40 mg IV every 12 hours Covid antigen negative, check PCR given bibasilar infiltrates on chest x-ray additionally. Status: Acute (2) Chronic respiratory failure with hypoxia: Continue BiPAP as needed States that he is unable to use his BIPAP at home recently as his mask has been broken. New mask is being delivered at the end of july Supplemental O2 to keep sats 88 to 92% Status: Acute (3) CHF (congestive heart failure): At home takes metolazone 2.5 mg p.o. every other day and Lasix 80mg po BID states he switched from Bumex to lasix at the advice of PCP as Bumex made him too dry We will continue metolazone, change Bumex to 2 mg IV every 12 hours for acute on chronic CHF exacerbation Titrate based on urine output and liver function Status: Acute Qualifiers: Heart failure chronicity: acute on chronic Heart failure type: di astolic Qualified Code(s): I50.33 - Acute on chronic diastolic (congestive) heart failure (4) Hypokalemia: Supplement IV, closely monitor while on above diuretic therapy Status: Acute (5) Pneumonia: Bibasilar infiltrates right greater than left, may be patient intake representative of atelectasis fluid or infective infiltrate. Start levofloxacin empirically Status: Acute Qualifiers: Laterality: bilateral Lung location: lower lobe of lung Pneumonia type: due to unspecified organism Qualified Code(s): J18.9 - Pneumonia, unspecified organism Additional A&P Information Diabetes mellitus: Insulin sliding scale Atrial fibrillation: Currently rate controlled: Continue home doses of Cardizem and digoxin check digoxin level. Not currently on anticoagulation due to history of GI bleed. Attestations Medical Necessity Statement*: anticipate >2misnight admission for need for iv diuresis, abx for pneumonia Coding Level of Care Code Acute [employer] [facility] Fwd Diagnoses Acute exacerbation of chronic obstructive airways disease J44.1 Chronic respiratory failure with hypoxia J96.11 CHF (congestive heart failure) I50.33 Heart failure chronicity: acute on chronic Heart failure type: diastolic Hypokalemia E87.6 Pneumonia J18.9 Laterality: bilateral Lung location: lower lobe of lung Pneumonia type: due to unspecified organism
[2021-07-05] MEDS: amlodipine 5 mg Tablet PO (07:03)
[2021-07-05] MEDS: atorvastatin 40 mg Tablet PO (07:03)
[2021-07-05] MEDS: dilTIAZem ER (24HR) 240 mg Capsule PO (07:03)
[2021-07-05] MEDS: bumetanide 0.25 mg/mL SDV 4 mL 2 MG IV (07:03)
[2021-07-05 08:40] VITALS: BP 119/76; PULSE 76; RESP 18; O2SAT 95
[2021-07-06 15:36] LABS: Coronavirus Test Green County Not Detected
== END 2021-07-05 08:40 | disposition home or self-care (01) ==
PROVIDERS: Emergency Provider Family Medicine; PCP Physician Assistant; Visit Provider Student in an Organized Health Care Education/Training Program
DX: J44.0 Chronic obstructive pulmonary disease with (acute) lower respiratory infection (principal); J18.9 Pneumonia, unspecified organism; J44.1 Chronic obstructive pulmonary disease with (acute) exacerbation; J96.20 Acute and chronic respiratory failure, unspecified whether with hypoxia or hypercapnia; I11.0 Hypertensive heart disease with heart failure; I50.9 Heart failure, unspecified; I25.10 Atherosclerotic heart disease of native coronary artery without angina pectoris; E11.9 Type 2 diabetes mellitus without complications; Z79.4 Long term (current) use of insulin; F17.210 Nicotine dependence, cigarettes, uncomplicated; Z20.822 Contact with and (suspected) exposure to COVID-19
CPT/HCPCS: 36600; 71045; 80053; 80162; 82803; 82805; 83605; 83880; 84484; 85025; 87426; 87635; 93005; 94660; 96365; 99285; J0456; J0696; J1940; J2930; J3480; J3490; J7030; J7050

== ENCOUNTER 2021-07-18 04:53 | Inpatient (IN) | payer MEDICARE, MEDICAID, SELFPAY ==
[2021-07-18] VITALS (48 sets, daily range): BP systolic 79–153; BP diastolic 51–92; PULSE 80–147; RESP 14–31; TEMP 36.6–36.7; O2SAT 41–99; BMI 35.1; BMI 34.6
--- NOTE | 2021-07-18 04:57 | W.ED.SOB ---
Documented by User: Gigi Segal MD 07/18/21 19:15 HPI - SOB/Dyspnea General: Chief Complaint: ER Hold Stated Complaint: SOB Time Seen by Provider: 07/18/21 04:57 History of Present Illness: HPI Narrative: Mr. Cuellar is a 65-year-old gentleman with significant past medical history of chronic hypoxic respiratory failure, atrial fibrillation not on anticoagulation, diabetes, CHF, who presents to the emergency department due to generalized malaise, shortness of breath, and abnormal chest sensation. Symptom onset was subacute overnight. He describes worsening of symptoms with exertion however no relief at rest. He has not had to turn up his home oxygen. No infectious symptoms reported. Overall the intensity of symptoms is moderate. No other specific exacerbating, or alleviating factors identified. He reports compliance with his medication regimen. Review of Systems General: Reports: 10 or more systems reviewed and unremarkable except in HPI and below Narrative: CONSTITUTIONAL: See HPI EYES - denies pain, denies loss of vision EARS - denies ear issues. NOSE - denies congestion or rhinorrhea. THROAT - denies sore throat or difficulty swallowing. CARDIOVASCULAR - denies chest pain and palpitations RESPIRATORY -see HPI GASTROINTESTINAL - denies abdominal pain, no nausea vomiting, no changes in bowel habits GENITOURINARY - denies dysuria or urinary frequency MUSCULOSKELETAL- denies deformity or pain SKIN - denies rashes or new changed skin lesions NEUROLOGIC - denies focal weakness or sensory changes HEMATOLOGIC/LYMPHATIC - denies easy bruising or lymphadenopathy. [facility] ED PFSH: Medical History (Updated 07/18/21 @ 13:11 by Unruly Bass MD) Acute exacerbation of chronic obstructive airways disease Atrial fibrillation -Currently normal sinus rhythm, heart rate controlled -continue Cardizem, digoxin -Has been off anticoagulation secondary to GI bleed while on Eliquis in May 2019 -Telemetry monitoring CAD (coronary artery disease) CHF (congestive heart failure) Congestive heart failure -Clinically does not appear decompensated -has known history of chronic diastolic CHF, last echo shows ejection fraction of 60% with grade 1 diastolic dysfunction (04/2018) -continue Lasix, potassium COPD (chronic obstructive pulmonary disease) Cor pulmonale Diabetes -most recent A1c-5.8 -Insulin dependent at baseline -Accu-Cheks, scheduled insulin, ISS -Hypoglycemia precautions; hyperglycemic likely secondary to steroids Heart attack Hypertension -hypertensive, continue to monitor vital signs -continue oral antihypertensives; increased dose of amlodipine Hypoxia Nicotine addiction DAYNE (obstructive sleep apnea) Surgical History H/O hernia repair Family History Mother Lung disease COPD Sister Cancer Social History Smoking and tobacco status: current every day smoker cigarettes Years cigarettes smoked: 47 [ Other cigarette details: Hx of 2PPD x 47 Years ] Quit status (tobacco): considering quitting Second hand smoke exposure: Yes Smoking risk assessment/counseling performed?: Yes Alcohol intake: current Alcohol intake frequency: holidays/special occasions only Desire information about alcohol rehabilitation?: No Counseling given: No Desire information about substance/drug rehabilitation?: No Counseling given: No Lives independently: Yes Household members: none Marital status: Single Current occupational status: disabled and 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 No acute distress. Eyes - PERRL, no conjunctival injection ENMT - Atraumatic external nose and ears. Moist mucous membranes NECK - supple. trachea midline CARDIOVASCULAR -tachycardia and irregularly irregular rhythm. Peripheral pulses 2+ and equal RESPIRATORY -diminished to auscultation bilaterally. No retractions or accessory muscle use. ABDOMEN/GI - Nontender/Nondistended. No tenderness to percussion or evidence of peritonitis MSK - Extremities without obvious deformity or tenderness to palpation SKIN - Warm, Dry NEURO - alert and appropriately oriented. strength and sensation intact. Moves all extremities equally. PSYCH - Appropriate mood and affect Course ED course: - Patient was seen and evaluated by me at bedside - Patient placed on cardiac monitors, IV access obtained - Initial evaluation notable for chronically ill appearance, no acute distress. A. fib with RVR. -Due to hypotension with blood pressures in the low 80s and high 70s digoxin bolus ordered. Initially Cardizem was ordered however this was not administered, same with esmolol. - Labs notable for likely hemoconcentration with metabolic evidence of similar and electrolyte abnormalities with replenishment ordered - Imaging notable for no lobar consolidation - Upon serial reexamination after treatment the patient was improved -Patient care handed off to morning physician make admission after completion of laboratory studies. Vital Signs: Vital signs: Vital Signs Temperature 98.0 F 07/18/21 05:06 Pulse Rate 100 07/18/21 16:45 Respiratory Rate 22 H 07/18/21 16:45 Blood Pressure 122/63 07/18/21 16:45 Pulse Oximetry 93 07/18/21 16:45 MDM - SOB/Dyspnea Medical Records: Attestation: I reviewed the patient's medical records. Lab Data: Attestation: I reviewed the patient's lab results. Labs: Lab Results 07/18/21 07/18/21 07/18/21 Range/Units 05:03 05:03 05:03 WBC 14.5 H (4.0-10.0) 10^3/ uL RBC 5.65 H (4.1-5.3) 10^6/u L Hgb 16.8 H (11.7-16.6) g/dL Hct 48.6 (42.0-52.0) % MCV 86.0 (80-94) fl MCH 29.7 (28.0-34.0) pg MCHC 34.6 (30.0-36.0) g/dL RDW 14.7 (12.1-15.1) % Plt Count 285 (130-400) 10^3/c mm MPV 10.7 H (7.4-10.4) fL Neut % (Auto) 83.4 % Lymph % (Auto) 7.0 % [place] % (Auto) 7.3 % Eos % (Auto) 1.0 % Baso % (Auto) 0.5 % Neut # (Auto) 12.08 H (1.8-7.7) 10^3/u L Lymph # (Auto) 1.0 (0.8-4.8) 10^3/u L [place] # (Auto) 1.1 H (0.2-0.9) 10^3/u L Eos # (Auto) 0.2 (0.0-0.8) 10^3/u L Baso # (Auto) 0.1 (0.0-0.1) 10^3/u L Nucleated RBC % (a uto) 0 % Nucleated RBCs # 0.0 /100WBC Sodium 128 L (136-145) mmol/L Potassium 3.4 L (3.5-5.1) mmol/L Chloride 75 L (98-107) mmol/L Carbon Dioxide 41 H (22-29) mmol/L Anion Gap 15.4 (5-19) BUN 37 H (8-23) mg/dL Creatinine 1.1 (0.7-1.2) mg/dL GFR Calculation 67.6 L (90-130) mL/min Glucose 195 H (65-115) mg/dL Estimat Average Gl ucose Hemoglobin A1c (4.0-6.0) % Calculated Osmolal ity 280 L (285-295) mOsm/k g Calcium 8.3 L (8.5-10.5) mg/dL Magnesium 1.8 (1.7-2.3) mg/dL Total Bilirubin 0.3 (0.15-1.2) mg/dL AST 12 (0-40) U/L ALT 13 (0-41) U/L Alkaline Phosphata se 76 (40-130) IU/L Troponin T Baselin e 118 H* (0-15) ng/L Troponin T 120 Min [place] (0-15) ng/L Delta Troponin T (0-10) ABS# NT-Pro-B Natriuret Pep 382 H (0-125) pg/mL Total Protein 5.2 L (6.6-8.7) g/dL Albumin 3.5 (3.5-5.2) g/dL Globulin 1.7 (1.3-4.6) g/dL TSH 0.61 (0.27-4.20) uIU/ mL Urine Color (Yellow) Urine Appearance (CLEAR) Urine pH (5-7) Ur Specific Gravit y (1.005-1.030) Urine Protein (Negative) Urine Glucose (UA) (Normal) Urine Ketones (Negative) Urine Blood (Negative) Urine Nitrate (Negative) Urine Bilirubin (Negative) Urine Urobilinogen (Negative) mg/dL Ur Leukocyte Jen ase (Negative) Urine RBC (0-2) /hpf Urine WBC (0-5) /hpf Ur Squamous Epith Cells (0-5) /hpf Amorphous Sediment Urine Bacteria (NONE) /hpf Urine Mucus /hpf Digoxin (0.6-1.2) ng/mL SARS-CoV-2 Ag (Rap id) (Negative) 07/18/21 07/18/2107/18/21 Range/Units 05:03 05:03 05:43 WBC (4.0-10.0) 10^3/ uL RBC (4.1-5.3) 10^6/u L Hgb (11.7-16.6) g/dL Hct (42.0-52.0) % MCV (80-94) fl MCH (28.0-34.0) pg MCHC (30.0-36.0) g/dL RDW (12.1-15.1) % Plt Count (130-400) 10^3/c mm MPV (7.4-10.4) fL Neut % (Auto) % Lymph % (Auto) % [place] % (Auto) % Eos % (Auto) % Baso % (Auto) % Neut # (Auto) (1.8-7.7) 10^3/u L Lymph # (Auto) (0.8-4.8) 10^3/u L [place] # (Auto) (0.2-0.9) 10^3/u L Eos # (Auto) (0.0-0.8) 10^3/u L Baso # (Auto) (0.0-0.1) 10^3/u L Nucleated RBC % (a uto) % Nucleated RBCs # /100WBC Sodium (136-145) mmol/L Potassium (3.5-5.1) mmol/L Chloride (98-107) mmol/L Carbon Dioxide (22-29) mmol/L Anion Gap (5-19) BUN (8-23) mg/dL Creatinine (0.7-1.2) mg/dL GFR Calculation (90-130) mL/min Glucose (65-115) mg/dL Estimat Average Gl ucose 186 Hemoglobin A1c 8.1 H (4.0-6.0) % Calculated Osmolal ity (285-295) mOsm/k g Calcium (8.5-10.5) mg/dL Magnesium (1.7-2.3) mg/dL Total Bilirubin (0.15-1.2) mg/dL AST (0-40) U/L ALT (0-41) U/L Alkaline Phosphata se (40-130) IU/L Troponin T Baselin e (0-15) ng/L Troponin T 120 Min [place] (0-15) ng/L Delta Troponin T (0-10) ABS# NT-Pro-B Natriuret Pep (0-125) pg/mL Total Protein (6.6-8.7) g/dL Albumin (3.5-5.2) g/dL Globulin (1.3-4.6) g/dL TSH (0.27-4.20) uIU/ mL Urine Color (Yellow) Urine Appearance (CLEAR) Urine pH (5-7) Ur Specific Gravit y (1.005-1.030) Urine Protein (Negative) Urine Glucose (UA) (Normal) Urine Ketones (Negative) Urine Blood (Negative) Urine Nitrate (Negative) Urine Bilirubin (Negative) Urine Urobilinogen (Negative) mg/dL Ur Leukocyte Jen ase (Negative) Urine RBC (0-2) /hpf Urine WBC (0-5) /hpf Ur Squamous Epith Cells (0-5) /hpf Amorphous Sediment Urine Bacteria (NONE) /hpf Urine Mucus /hpf Digoxin 1.2 (0.6-1.2) ng/mL SARS-CoV-2 Ag (Rap id) Negative (Negative) 07/18/21 07/18/21 Range/Units 05:51 07:50 WBC (4.0-10.0) 10^3/ uL RBC (4.1-5.3) 10^6/u L Hgb (11.7-16.6) g/dL Hct (42.0-52.0) % MCV (80-94) fl MCH (28.0-34.0) pg MCHC (30.0-36.0) g/dL RDW (12.1-15.1) % Plt Count (130-400) 10^3/c mm MPV (7.4-10.4) fL Neut % (Auto) % Lymph % (Auto) % [place] % (Auto) % Eos % (Auto) % Baso % (Auto) % Neut # (Auto) (1.8-7.7) 10^3/u L Lymph # (Auto) (0.8-4.8) 10^3/u L [place] # (Auto) (0.2-0.9) 10^3/u L Eos # (Auto) (0.0-0.8) 10^3/u L Baso # (Auto) (0.0-0.1) 10^3/u L Nucleated RBC % (a uto) % Nucleated RBCs # /100WBC Sodium (136-145) mmol/L Potassium (3.5-5.1) mmol/L Chloride (98-107) mmol/L Carbon Dioxide (22-29) mmol/L Anion Gap (5-19) BUN (8-23) mg/dL Creatinine (0.7-1.2) mg/dL GFR Calculation (90-130) mL/min Glucose (65-115) mg/dL Estimat Average Gl ucose Hemoglobin A1c (4.0-6.0) % Calculated Osmolal ity (285-295) mOsm/k g Calcium (8.5-10.5) mg/dL Magnesium (1.7-2.3) mg/dL Total Bilirubin (0.15-1.2) mg/dL AST (0-40) U/L ALT (0-41) U/L Alkaline Phosphata se (40-130) IU/L Troponin T Baselin e (0-15) ng/L Troponin T 120 Min [place] 146.8 H (0-15) ng/L Delta Troponin T 28.8 H* (0-10) ABS# NT-Pro-B Natriuret Pep (0-125) pg/mL Total Protein (6.6-8.7) g/dL Albumin (3.5-5.2) g/dL Globulin (1.3-4.6) g/dL TSH (0.27-4.20) uIU/ mL Urine Color Yellow (Yellow) Urine Appearance Clear (CLEAR) Urine pH 5 (5-7) Ur Specific Gravit y 1.015 (1.005-1.030) Urine Protein 3+ H (Negative) Urine Glucose (UA) 4+ H (Normal) Urine Ketones Negative (Negative) Urine Blood Neg (Negative) Urine Nitrate Negative (Negative) Urine Bilirubin Neg (Negative) Urine Urobilinogen Norm (Negative) mg/dL Ur Leukocyte Jen ase Negative (Negative) Urine RBC None (0-2) /hpf Urine WBC Rare (0-5) /hpf Ur Squamous Epith Cells None (0-5) /hpf Amorphous Sediment Not Reportable Urine Bacteria Trace (NONE) /hpf Urine Mucus Trace /hpf Digoxin (0.6-1.2) ng/mL SARS-CoV-2 Ag (Rap id) (Negative) EKG Data^: EKG 1: Attestation: I personally reviewed and interpreted this EKG as follows: EKG Interpretation Date: 07/18/21 EKG interpretation time: 07:41 Interpretation: Twelve-lead EKG shows an irregular rhythm at a rate of 105. No ME interval, QRS duration 103, QTc 434. Normal axis. Interpretation: Atrial flutter versus variable conduction atrial fibrillation with rapid ventricular response. EKG 2: Attestation: I personally reviewed and interpreted this EKG as follows: EKG Interpretation Date: 07/18/21 EKG interpretation time: 06:55 Interpretation: Twelve-lead EKG shows an irregular rhythm at a rate of 102. ME interval not available, QRS duration 114, QTc 519. Normal axis. Interpretation, variable conduction atrial fibrillation versus flutter, ectopy. Critical Care Time Critical Care Time: Critical Care Time: Yes Total Critical Care Time: 35 Attestation: This case had a high probability of a clinically significant, sudden, or life threatening deterioration of this patient's condition which required my full and direct attention, intervention and personal management. Discharge Plan Discharge Patient Disposition: Admitted As Inpatient Admit Provider: Unruly Bass Clinical Impression: Atrial fibrillation with rapid ventricular response, Chronic respiratory failure with hypoxia, Elevated troponin I level Condition: Stable Coding Level of Care Code ED Early Childhood Education Coordinator for Chg Fwd Documented by User: Allison Holder MD 07/18/21 09:04 HPI - SOB/Dyspnea General: Chief Complaint: ER Hold Stated Complaint: SOB Time Seen by Provider: 07/18/21 04:57 PFSH ED PFSH: Medical History (Updated 07/18/21 @ 13:11 by Unruly Bass MD) Acute exacerbation of chronic obstructive airways disease Atrial fibrillation -Currently normal sinus rhythm, heart rate controlled -continue Cardizem, digoxin -Has been off anticoagulation secondary to GI bleed while on Eliquis in May 2019 -Telemetry monitoring CAD (coronary artery disease) CHF (congestive heart failure) Congestive heart failure -Clinically does not appear decompensated -has known history of chronic diastolic CHF, last echo shows ejection fraction of 60% with grade 1 diastolic dysfunction (04/2018) -continue Lasix, potassium COPD (chronic obstructive pulmonary disease) Cor pulmonale Diabetes -most recent A1c-5.8 -Insulin dependent at baseline -Accu-Cheks, scheduled insulin, ISS -Hypoglycemia precautions; hyperglycemic likely secondary to steroids Heart attack Hypertension -hypertensive, continue to monitor vital signs -continue oral antihypertensives; increased dose of amlodipine Hypoxia Nicotine addiction DAYNE (obstructive sleep apnea) Surgical History H/O hernia repair Family History Mother Lung disease COPD Sister Cancer Social History Smoking and tobacco status: current every day smoker cigarettes Years cigarettes smoked: 47 [ Other cigarette details: Hx of 2PPD x 47 Years ] Quit status (tobacco): considering quitting Second hand smoke exposure: Yes Smoking risk assessment/counseling performed?: Yes Alcohol intake: current Alcohol intake frequency: holidays/special occasions only Desire information about alcohol rehabilitation?: No Counseling given: No Desire information about substance/drug rehabilitation?: No Counseling given: No Lives independently: Yes Household members: none Marital status: Single Current occupational status: disabled and 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 History of recent travel: No Current gender identity: Male Course ED course: I assumed care of this patient at 6:30 am. He had improved with digoxin - he had not been given cardizem due to low BPs. On my evaluation his HR was between 80 and 120 - and his oxygen sats were 97% on 6L. He is normally on 5L. He told me that he felt much better and thought he could go home. He also requested BiPap and says that he is supposed to get it at home in August. His lungs were clear and he was alert, breathing easily, and in no distress on my evaluation. I told him that I did not think that BiPap would be helpful for him now. He will be admitted for further management of his a fib with RVR. Clinically I think he might be on the dry side and not fluid overloaded. I consulted the hospitalist for admission. Allison Holder MD. Vital Signs: Vital signs: Vital Signs Temperature 98.0 F 07/18/21 05:06 Pulse Rate 100 07/18/21 16:45 Respiratory Rate 22 H 07/18/21 16:45 Blood Pressure 122/63 07/18/21 16:45 Pulse Oximetry 93 07/18/21 16:45 MDM - SOB/Dyspnea Lab Data: Labs: Lab Results 07/18/21 07/18/21 07/18/21 Range/Units 05:03 05:03 05:03 WBC 14.5 H (4.0-10.0) 10^3/ uL RBC 5.65 H (4.1-5.3) 10^6/u L Hgb 16.8 H (11.7-16.6) g/dL Hct 48.6 (42.0-52.0) % MCV 86.0 (80-94) fl MCH 29.7 (28.0-34.0) pg MCHC 34.6 (30.0-36.0) g/dL RDW 14.7 (12.1-15.1) % Plt Count 285 (130-400) 10^3/c mm MPV 10.7 H (7.4-10.4) fL Neut % (Auto) 83.4 % Lymph % (Auto) 7.0 % [place] % (Auto) 7.3 % Eos % (Auto) 1.0 % Baso % (Auto) 0.5 % Neut # (Auto) 12.08 H (1.8-7.7) 10^3/u L Lymph # (Auto) 1.0 (0.8-4.8) 10^3/u L [place] # (Auto) 1.1 H (0.2-0.9) 10^3/u L Eos # (Auto) 0.2 (0.0-0.8) 10^3/u L Baso # (Auto) 0.1 (0.0-0.1) 10^3/u L Nucleated RBC % (a uto) 0 % Nucleated RBCs # 0.0 /100WBC Sodium 128 L (136-145) mmol/L Potassium 3.4 L (3.5-5.1) mmol/L Chloride 75 L (98-107) mmol/L Carbon Dioxide 41 H (22-29) mmol/L Anion Gap 15.4 (5-19) BUN 37 H (8-23) mg/dL Creatinine 1.1 (0.7-1.2) mg/dL GFR Calculation 67.6 L (90-130) mL/min Glucose 195 H (65-115) mg/dL Estimat Average Gl ucose Hemoglobin A1c (4.0-6.0) % Calculated Osmolal ity 280 L (285-295) mOsm/k g Calcium 8.3 L (8.5-10.5) mg/dL Magnesium 1.8 (1.7-2.3) mg/dL Total Bilirubin 0.3 (0.15-1.2) mg/dL AST 12 (0-40) U/L ALT 13 (0-41) U/L Alkaline Phosphata se 76 (40-130) IU/L Troponin T Baselin e 118 H* (0-15) ng/L Troponin T 120 Min [place] (0-15) ng/L Delta Troponin T (0-10) ABS# NT-Pro-B Natriuret Pep 382 H (0-125) pg/mL Total Protein 5.2 L (6.6-8.7) g/dL Albumin 3.5 (3.5-5.2) g/dL Globulin 1.7 (1.3-4.6) g/dL TSH 0.61 (0.27-4.20) uIU/ mL Urine Color (Yellow) Urine Appearance (CLEAR) Urine pH (5-7) Ur Specific Gravit y (1.005-1.030) Urine Protein (Negative) Urine Glucose (UA) (Normal) Urine Ketones (Negative) Urine Blood (Negative) Urine Nitrate (Negative) Urine Bilirubin (Negative) Urine Urobilinogen (Negative) mg/dL Ur Leukocyte Jen ase (Negative) Urine RBC (0-2) /hpf Urine WBC (0-5) /hpf Ur Squamous Epith Cells (0-5) /hpf Amorphous Sediment Urine Bacteria (NONE) /hpf Urine Mucus /hpf Digoxin (0.6-1.2) ng/mL SARS-CoV-2 Ag (Rap id) (Negative) 07/18/21 07/18/21 07/18/21 Range/Units 05:03 05:03 05:43 WBC (4.0-10.0) 10^3/ uL RBC (4.1-5.3) 10^6/u L Hgb (11.7-16.6) g/dL Hct (42.0-52.0) % MCV (80-94) fl MCH (28.0-34.0) pg MCHC (30.0-36.0) g/dL RDW (12.1-15.1) % Plt Count (130-400) 10^3/c mm MPV (7.4-10.4) fL Neut % (Auto) % Lymph % (Auto) % [place] % (Auto) % Eos % (Auto) % Baso % (Auto) % Neut # (Auto) (1.8-7.7) 10^3/u L Lymph # (Auto) (0.8-4.8) 10^3/u L [place] # (Auto) (0.2-0.9) 10^3/u L Eos # (Auto) (0.0-0.8) 10^3/u L Baso # (Auto) (0.0-0.1) 10^3/u L Nucleated RBC % (a uto) % Nucleated RBCs # /100WBC Sodium (136-145) mmol/L Potassium (3.5-5.1) mmol/L Chloride (98-107) mmol/L Carbon Dioxide (22-29) mmol/L Anion Gap (5-19) BUN (8-23) mg/dL Creatinine (0.7-1.2) mg/dL GFR Calculation (90-130) mL/min Glucose (65-115) mg/dL Estimat Average Gl ucose 186 Hemoglobin A1c 8.1 H (4.0-6.0) % Calculated Osmolal ity (285-295) mOsm/k g Calcium (8.5-10.5) mg/dL Magnesium (1.7-2.3) mg/dL Total Bilirubin (0.15-1.2) mg/dL AST (0-40) U/L ALT (0-41) U/L Alkaline Phosphata se (40-130) IU/L Troponin T Baselin e (0-15) ng/L Troponin T 120 Min [place] (0-15) ng/L Delta Troponin T (0-10) ABS# NT-Pro-B Natriuret Pep (0-125) pg/mL Total Protein (6.6-8.7) g/dL Albumin (3.5-5.2) g/dL Globulin (1.3-4.6) g/dL TSH (0.27-4.20) uIU/ mL Urine Color (Yellow) Urine Appearance (CLEAR) Urine pH (5-7) Ur Specific Gravit y (1.005-1.030) Urine Protein (Negative) Urine Glucose (UA) (Normal) Urine Ketones (Negative) Urine Blood (Negative) Urine Nitrate (Negative) Urine Bilirubin (Negative) Urine Urobilinogen (Negative) mg/dL Ur Leukocyte Jen ase (Negative) Urine RBC (0-2) /hpf Urine WBC (0-5) /hpf Ur Squamous Epith Cells (0-5) /hpf Amorphous Sediment Urine Bacteria (NONE) /hpf Urine Mucus /hpf Digoxin 1.2 (0.6-1.2) ng/mL SARS-CoV-2 Ag (Rap id) Negative (Negative) 07/18/21 07/18/21 Range/Units 05:51 07:50 WBC (4.0-10.0) 10^3/ uL RBC (4.1-5.3) 10^6/u L Hgb (11.7-16.6) g/dL Hct (42.0-52.0) % MCV (80-94) fl MCH (28.0-34.0) pg MCHC (30.0-36.0) g/dL RDW (12.1-15.1) % Plt Count (130-400) 10^3/c mm MPV (7.4-10.4) fL Neut % (Auto) % Lymph % (Auto) % [place] % (Auto) % Eos % (Auto) % Baso % (Auto) % Neut # (Auto) (1.8-7.7) 10^3/u L Lymph # (Auto) (0.8-4.8) 10^3/u L [place] # (Auto) (0.2-0.9) 10^3/u L Eos # (Auto) (0.0-0.8) 10^3/u L Baso # (Auto) (0.0-0.1) 10^3/u L Nucleated RBC % (a uto) % Nucleated RBCs # /100WBC Sodium (136-145) mmol/L Potassium (3.5-5.1) mmol/L Chloride (98-107) mmol/L Carbon Dioxide (22-29) mmol/L Anion Gap (5-19) BUN (8-23) mg/dL Creatinine (0.7-1.2) mg/dL GFR Calculation (90-130) mL/min Glucose (65-115) mg/dL Estimat Average Gl ucose Hemoglobin A1c (4.0-6.0) % Calculated Osmolal ity (285-295) mOsm/k g Calcium (8.5-10.5) mg/dL Magnesium (1.7-2.3) mg/dL Total Bilirubin (0.15-1.2) mg/dL AST (0-40) U/L ALT (0-41) U/L Alkaline Phosphata se (40-130) IU/L Troponin T Baselin e (0-15) ng/L Troponin T 120 Min [place] 146.8 H (0-15) ng/L Delta Troponin T 28.8 H* (0-10) ABS# NT-Pro-B Natriuret Pep (0-125) pg/mL Total Protein (6.6-8.7) g/dL Albumin (3.5-5.2) g/dL Globulin (1.3-4.6) g/dL TSH (0.27-4.20) uIU/ mL Urine Color Yellow (Yellow) Urine Appearance Clear (CLEAR) Urine pH 5 (5-7) Ur Specific Gravit y 1.015 (1.005-1.030) Urine Protein 3+ H (Negative) Urine Glucose (UA) 4+ H (Normal) Urine Ketones Negative (Negative) Urine Blood Neg (Negative) Urine Nitrate Negative (Negative) Urine Bilirubin Neg (Negative) Urine Urobilinogen Norm (Negative) mg/dL Ur Leukocyte Jen ase Negative (Negative) Urine RBC None (0-2) /hpf Urine WBC Rare (0-5) /hpf Ur Squamous Epith Cells None (0-5) /hpf Amorphous Sediment Not Reportable Urine Bacteria Trace (NONE) /hpf Urine Mucus Trace /hpf Digoxin (0.6-1.2) ng/mL SARS-CoV-2 Ag (Rap id) (Negative) Discharge Plan Discharge Patient Disposition: Admitted As Inpatient Admit Provider: Unruly Bass Clinical Impression: Atrial fibrillation with rapid ventricular response, Chronic respiratory failure with hypoxia, Elevated troponin I level Condition: Stable Coding Level of Care Code ED Early Childhood Education Coordinator for Pacheco Morin
--- NOTE | 2021-07-18 05:06 | XRR_ITS ---
PROCEDURE INFORMATION: Exam: XR Chest Exam date and time: 07/18/2021 5:06 AM Age: 65 years old Clinical indication: Dyspnea; Additional info: Shortness of breath TECHNIQUE: Imaging protocol: XR of the chest. Views: 1 view. COMPARISON: CR (CHEST, ) 07/04/2021 4:33 PM FINDINGS: Lungs: The lungs are hyperinflated, consistent with emphysema. Mild patchy airspace opacities (atelectasis and/or consolidation) at bilateral lung bases, similar to prior study. Pulmonary vasculature within normal limits. Pleural spaces: No visible pneumothorax or pleural effusion. Heart/Mediastinum: Heart size within normal limits. Bones/joints: No emergent findings identified. XR/XR chest 1V portable [id number] IMPRESSION: 1. Mild patchy airspace opacities (atelectasis and/or consolidation) at bilateral lung bases, similar to prior study.
--- NOTE | 2021-07-18 05:07 | ECG_ITS ---
[facility] Test Date: 2021-07-18 Pat Name: Nagi Cuellar Department: Room: Gender: Male Lay Midwife: : 1955 Requested By: Gigi Segal Order Number: [id number] Dominguez MD: Krystal Meneses M.D. Measurements Intervals [place] Rate: 105 P: ME: QRS: 17 QRSD: 103 T: 69 QT: 328 QTc: 434 Interpretive Statements ATRIAL FLUTTER WITH RAPID VENTRICULAR RESPONSE INCOMPLETE RIGHT BUNDLE BRANCH BLOCK SEPTAL MYOCARDIAL INFARCTION , OF INDETERMINATE AGE Compared to ECG 07/18/2021 06:50:23 Myocardial infarct finding now present Ventricular premature complex(es) no longer present Aberrant conduction of supraventricular beat(s) no longer present T-wave abnormality no longer present Possible ischemia no longer present Electronically Signed On 07-19-2021 19:14:13 CDT by Krystal Meneses M.D. [id number]
[2021-07-18 05:14] LABS: Basophils # 0.1 10^3/uL (0.0-0.1); Basophils % 0.5 %; Eosinophils # 0.2 10^3/uL (0.0-0.8); Hematocrit 48.6 % (42.0-52.0); Hemoglobin 16.8 g/dL (11.7-16.6); Mean Corpuscular HGB Conc 34.6 g/dL (30.0-36.0); Mean Corpuscular Hemoglobin 29.7 pg (28.0-34.0); Mean Platelet Volume 10.7 fL (7.4-10.4); Monocytes # 1.1 10^3/uL (0.2-0.9); Monocytes % 7.3 %; Neutrophils # 12.08 10^3/uL (1.8-7.7); Neutrophils % 83.4 %; Nucleated Red Blood Cells % 0 %; Platelet Count 285 10^3/cmm (130-400); Red Blood Count 5.65 10^6/uL (4.1-5.3); Red Cell Distribution Width 14.7 % (12.1-15.1); White Blood Count 14.5 10^3/uL (4.0-10.0)
[2021-07-18 05:47] LABS: Alanine Aminotransferase 13 U/L (0-41); Albumin Level 3.5 g/dL (3.5-5.2); Alkaline Phosphatase 76 IU/L (40-130); Aspartate Amino Transferase 12 U/L (0-40); Blood Urea Nitrogen 37 mg/dL (8-23); Calcium 8.3 mg/dL (8.5-10.5); Chloride 75 mmol/L (98-107); Globulin 1.7 g/dL (1.3-4.6); Glomerular Filtration Rate 67.6 mL/min (90-130); Glucose 195 mg/dL (65-115); Magnesium 1.8 mg/dL (1.7-2.3); NT Pro B Type Natriuretic Pept 382 pg/mL (0-125); Osmolality Calculated 280 mOsm/kg (285-295); Sodium 128 mmol/L (136-145); Thyroid Stimulating Hormone 0.61 uIU/mL (0.27-4.20); Total Bilirubin 0.3 mg/dL (0.15-1.2); Total Protein 5.2 g/dL (6.6-8.7)
--- NOTE | 2021-07-18 05:51 | PC.NURSE ---
Patient stated that he was feeling SOB and requested that his O2 be increased. Patient was on 5L nasal cannula. This nurse placed patient on non-rebreather 7L. Patient stated that his SOB had improved.
[2021-07-18 06:00] LABS: Anion Gap 15.4 (5-19); Potassium 3.4 mmol/L (3.5-5.1)
[2021-07-18 06:01] LABS: Carbon Dioxide 41 mmol/L (22-29)
[2021-07-18 06:02] LABS: Troponin(5th) Baseline 118 ng/L (0-15)
[2021-07-18] MEDS: digoxin 250 mcg/ml INJ 2 mL IVP (06:19)
[2021-07-18] MEDS: potassium chloride ER 20 mEq Tablet 60 MEQ PO (06:20)
[2021-07-18] MEDS: magnesium sulfate premix 2 GM/50 ML PIGGYBACK IV (06:20)
[2021-07-18] MEDS: sodium chloride 0.9% 500 ML 999 ML IV ×2 (06:21→08:54)
[2021-07-18 06:30] LABS: SARS Covid-2 Antigen Negative (Negative)
[2021-07-18 06:30] LABS: Urine Appearance Clear (CLEAR); Urine Color Yellow (Yellow); pH Urine 5 (5-7)
[2021-07-18 06:31] LABS: Add Urine Microscopic? YES; Bilirubin Urine Neg (Negative); Blood Urine Neg (Negative); Glucose Urine UA 4+ (Normal); Ketones Urine Negative (Negative); Leukocyte Esterase Urine Negative (Negative); Nitrate Urine Negative (Negative); Protein Urine 3+ (Negative); Specific Gravity, Urine 1.015 (1.005-1.030); Urobilinogen Urine Norm (Negative)
[2021-07-18 06:32] LABS: Bacteria Urine TRACE /hpf; Mucus Urine TRACE /hpf; WBC Urine RARE /hpf (0-5)
[2021-07-18 06:33] LABS: Add Urine Culture? No
[2021-07-18 06:50] LABS: Digoxin 1.2 ng/mL (0.6-1.2)
--- NOTE | 2021-07-18 07:07 | ECG_ITS ---
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 Measurements Intervals [place] Rate: 102 P: HI: QRS: 9 QRSD: 114 T: 59 QT: 397 QTc: 519 Interpretive Statements ATRIAL FLUTTER/TACHYCARDIA WITH RAPID VENTRICULAR RESPONSE WITH ABERRANT CONDUCTION OR VENTRICULAR PREMATURE COMPLEXES INCOMPLETE RIGHT BUNDLE BRANCH BLOCK ST DEVIATION AND MODERATE T-WAVE ABNORMALITY, CONSIDER INFERIOR ISCHEMIA Compared to ECG 07/04/2021 22:25:21 Ventricular premature complex(es) now present Aberrant conduction of supraventricular beat(s) now present T-wave abnormality now present Possible ischemia now present Sinus rhythm no longer present First degree AV block no longer present ST (T wave) deviation no longer present Electronically Signed On 07-19-2021 21:35:41 CDT by Krystal Meneses M.D. [id number]
[2021-07-18] MEDS: aspirin 81 mg Chew Tablet 324 MG PO (07:54)
[2021-07-18 08:24] LABS: Troponin 5 2HR 146.8 ng/L (0-15); Troponin 5 2HR Delta 28.8 ABS# (0-10)
[2021-07-18 08:33] LABS: ABG PH Result 7.41 (7.35-7.45); Arterial Blood Gas Hematocrit 52.4 % (42-52); Base Excess ABG 19.5 mmol/L (-2.0-2.0); Blood Gas Allen Test Pos; Blood Gas Operator Identificat ED; Blood Gas Sample Site Radial, left; Blood Gas Sample Type Arterial; Carboxyhemoglobin 2.8 %THgb (0.4-20.1); HGB O2 Sat 93.1 % (95-100); Ionized Calcium Level - ABG 1.1 mmol/L (1.1-1.4); Methemoglobin 0.8 % (0.4-1.5); Oxygen Device NRB; Oxygen Saturation ABG 96.6; PO2 ABG 98.1 mmHg (80.0-100.0); Potassium Level - ABG 3.7 mmol/L (3.5-5.0); Total Hemoglobin 17.1 g/dL (14-18)
[2021-07-18 08:39] LABS: ABG PCO2 78.2 mmHg (35-45)
[2021-07-18] MEDS: ipratropium-albuterol 3 mL Neb INHALATION ×5 (09:17→23:12)
[2021-07-18] MEDS: azithromycin 500 MG in sodium chloride 0.9% 250 ML 250 MG IV (10:20)
[2021-07-18] MEDS: cefTRIAXone 1,000 MG in sodium chloride 0.9% (plus) 50 ML 100 MG IV (10:20)
[2021-07-18] MEDS: pantoprazole DR 40 mg Tablet PO (10:21)
[2021-07-18] MEDS: methIMAzole 5 MG Tablet PO (10:21)
[2021-07-18 10:55] LABS: Lactate (Lactic Acid level) 1.6 mmol/L (0.5-2.2)
[2021-07-18 11:05] LABS: Procalcitonin 0.14 ng/mL (0-0.5)
[2021-07-18 11:06] LABS: Chol HDL Ratio 3.91 mg/dL (1.0-5.00); Cholesterol 172 mg/dL (0-200); HDL Cholesterol 44 mg/dL (60-100); LDL Cholesterol Calculated 80 mg/dL (50-129); LDL HDL Ratio 1.82 RATIO (0.00-3.22); Thyroid Stimulating Hormone 0.47 uIU/mL (0.27-4.20); Triglycerides 241 mg/dL (0-150)
--- NOTE | 2021-07-18 11:07 | ECG_ITS ---
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 Measurements Intervals [place] Rate: 102 P: 262 RI: 171 QRS: -4 QRSD: 114 T: 42 QT: 331 QTc: 433 Interpretive Statements ATRIAL FLUTTER WITH RVR INCOMPLETE RIGHT BUNDLE BRANCH BLOCK MODERATE ST DEPRESSION [0.05+ mV ST DEPRESSION] Compared to ECG 07/18/2021 07:41:40 ST (T wave) deviation now present Myocardial infarct finding no longer present Electronically Signed On 07-19-2021 21:34:11 CDT by Krystal Meneses M.D. [id number]
[2021-07-18 11:17] LABS: C Reactive Protein 3.9 mg/L (0.0-4.9)
[2021-07-18 11:50] LABS: Glucose Point of Care 236 mg/dL (70-110)
[2021-07-18 11:55] LABS: Estmated Average Glucose 186; Hemoglobin A1C 8.1 % (4.0-6.0)
[2021-07-18 12:15] LABS: Troponin 5 6HR 146.9 ng/L (0-15); Troponin 5 6HR Delta 28.9 ng/L (0-12)
--- NOTE | 2021-07-18 12:57 | P.HP_ITS ---
Providers/Chief Complaint Admitting Physician: Unruly Bass MD Primary Care Provider: Nasreen Gomez Chief Complaint: SOB History of Present Illness Nagi Cuellar is a 65 year old male with a past medical history of COPD, cor pulmonale, CAD status post stenting x2, diastolic CHF, history of atrial fibrillation on Cardizem recently started on digoxin, off anticoagulation since May 2019 due to history of GI bleed, insulin-dependent type 2 diabetes mellitus, hypertension, hyperlipidemia, DAYNE, hyperthyroidism on Tapazole chronic pain on hydrocodone who presents to [facility] due to complaints of shortness of breath, and chest pain. Patient tells me that he has a history of severe COPD, uses 4 L at home, his BiPAP has been broken, he follows up with pulmonary, he has been feeling more short of breath for the last month, progressively more short of breath. This morning, he started developing chest palpitations, chest pain with shortness of breath so he decided to come to the emergency room. He tells me that he has A. fib, he has been seeing his primary care provider who recently added digoxin due to his heart rates being fast. He tells me he takes the medication as prescribed, did not miss any dose. He continues to smoke, and is wheezing, reports increased shortness of breath increased wheezing, has a chronic cough, no fevers, chills no known exposure to COVID-19 rapid Covid was negative in the emergency room. In the emergency room patient was found to have A. fib with RVR, did not improve with multiple Cardizem pushes, received 1 dose of p.o. digoxin, however continued to have episodes of A. fib with RVR, with brief hypotensive episodes, look dehydrated to me, I gave him a 500 cc bolus, started him on a Cardizem drip, resumed his BiPAP, ABG showed a PCO2 over 75. Baseline troponin I 118, white blood cell count 14.5, chest x-ray to me shows a right lower lobe infiltrate. Patient continued to have episodes of A. fib with RVR, heart rates in the 140s, with lower pressures, 8 blood pressures 80s over 60s, asymptomatic, will stop Cardizem drip. Bolus another 500 cc of fluid, start him on amiodarone drip with amiodarone bolus. Review of Systems Const: Denies: fever(s), chills, fatigue or malaise Eyes: Denies: change in vision or blurry vision ENMT: Denies: nasal congestion Card: Reports: chest pain, palpitations, irregular heart rhythm and dyspnea on exertion; Denies: edema, swelling of feet/ankles or lightheadedness Resp: Reports: dyspnea, non-productive cough and wheezing; Denies: productive cough GI: Denies: abdominal pain, nausea, vomiting, hematemesis, diarrhea, constipation, hematochezia or melena : Denies: flank pain, difficulty urinating, dysuria or urinary frequency Musc: Denies: neck pain or back pain Skin/Breast: Denies: rash Neuro: Denies: headache(s), dizziness or vertigo Endo: Denies: polyuria or polydipsia Medications/Allergies Home Medications Medication Instructions Recorded Confirmed Last Taken Type trazodone 50 mg PO BEDTIME@2100 11/20/19 07/18/21 07/17/21 History albuterol sulfate 1.25 mg INHALATION Q4H PRN 30 Days 11/22/19 07/18/21 01/14/21 Rx #30 appful sodium chloride [Saline Mist] 1 spray NASAL PRN PRN #0 ml 11/22/19 07/18/21 12/21/19 Rx Daliresp 500 mcg PO DAILY@0700 01/15/21 07/18/21 07/17/21 History Januvia 50 mg PO DAILY@0700 01/15/21 07/18/21 07/17/21 History amlodipine 5 mg PO DAILY@0700 01/15/21 07/18/21 07/17/21 History digoxin 125 mcg PO DAILY@0700 01/15/21 07/18/21 07/17/21 History diltiazem HCl [Cartia XT] 240 mg PO DAILY@0700 01/15/21 07/18/21 07/17/21 History methimazole 2.5 mg PO DAILY@0700 01/15/21 07/18/21 07/17/21 History potassium chloride 20 meq PO BID@0700,2100 01/15/21 07/18/21 07/17/21 History rosuvastatin 10 mg PO DAILY@0700 01/15/21 07/18/21 07/17/21 History metolazone 2.5 mg tablet 2.5 mg PO .Every other day 30 Days 05/17/21 07/18/21 07/17/21 Rx #30 tab Farxiga 10 mg PO DAILY 07/04/21 07/18/21 07/17/21 History Lantus Solostar U-100 Insulin 30 unit SUBCUT BEDTIME 07/04/21 07/18/21 07/16/21 History tiotropium bromide 1.25 See Rx Instructions .ROUTE 07/16/21 07/18/21 07/17/21 Rx mcg/actuation mist for inhalation .COMPLEX #4 milliliter empagliflozin [Jardiance] 25 mg PO DAILY 07/18/21 07/18/21 07/17/21 History furosemide 80 mg PO BID 07/18/21 07/18/21 07/17/21 History omeprazole 40 mg PO DAILY 07/18/21 07/18/21 07/17/21 History propranolol 40 mg PO BID 07/18/21 07/18/21 07/17/21 History sacubitril-valsartan [Entresto] 1 tab PO BID 07/18/21 07/18/21 07/17/21 History Allergies Allergy/AdvReac Type Severity Reaction Status Date / Time No Known Allergies Allergy Verified 05/18/21 11:54 PFSH Acute PFSH: Medical History (Updated 07/18/21 @ 13:11 by Unruly Bass MD) Acute exacerbation of chronic obstructive airways disease Atrial fibrillation -Currently normal sinus rhythm, heart rate controlled -continue Cardizem, digoxin -Has been off anticoagulation secondary to GI bleed while on Eliquis in May 2019 -Telemetry monitoring CAD (coronary artery disease) CHF (congestive heart failure) Congestive heart failure -Clinically does not appear decompensated -has known history of chronic diastolic CHF, last echo shows ejection fraction of 60% with grade 1 diastolic dysfunction (04/2018) -continue Lasix, potassium COPD (chronic obstructive pulmonary disease) Cor pulmonale Diabetes -most recent A1c-5.8 -Insulin dependent at baseline -Accu-Cheks, scheduled insulin, ISS -Hypoglycemia precautions; hyperglycemic likely secondary to steroids Heart attack Hypertension -hypertensive, continue to monitor vital signs -continue oral antihypertensives; increased dose of amlodipine Hypoxia Nicotine addiction DAYNE (obstructive sleep apnea) Surgical History H/O hernia repair Family History Mother Lung disease COPD Sister Cancer Social History Smoking and tobacco status: current every day smoker cigarettes Years cigarettes smoked: 47 [ Other cigarette details: Hx of 2PPD x 47 Years ] Quit status (tobacco): considering quitting Second hand smoke exposure: Yes Smoking risk assessment/counseling performed?: Yes Alcohol intake: current Alcohol intake frequency: holidays/special occasions only Desire information about alcohol rehabilitation?: No Counseling given: No Desire information about substance/drug rehabilitation?: No Counseling given: No Lives independently: Yes Household members: none Marital status: Single 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 History of recent travel: No Current gender identity: Male Vitals/I&O/Wt Last Vital Signs Temp 98.0 F 07/18/21 05:06 Pulse 147 H 07/18/21 12:50 Resp 22 H 07/18/21 12:50 BP 114/72 07/18/21 11:00 Pulse Ox 89 L 07/18/21 12:50 07/17/21 07/18/21 07/18/21 22:59 06:59 14:59 Intake Total 1350 / 1350 Balance 1350 / 1350 Weight last 48 hrs Weight 95.708 kg Physical Exam Const: COMMON NORMALS: no acute distress and patient oriented x3 Eye: COMMON NORMALS: Equal, round and reactive pupils present and EOMs intact bilaterally GENERAL EYE: appearance normal, both eyes and all related structures PUPIL: Yes Equal, round and reactive pupils present Neck/C-Spine: COMMON NORMALS: full ROM and no lymphadenopathy THYROID: Thyroid normal Lymph: LYMPHATIC: no lymphadenopathy noted Resp: COMMON NORMALS: normal respiratory effort, No retractions and No use of accessory muscles Cardio: RATE: tachycardic RHYTHM: abnormal rhythm irregularly irregular HEART SOUNDS: S1 normal heart sound present and S2 normal heart sound present GI: COMMON NORMALS: Normal to inspection, nondistended, normoactive bowel sounds present, Soft to palpation, non-tender and No hepatosplenomegaly present Extremity: COMMON NORMALS: normal to inspection, full ROM and no pedal edema Neuro: COMMON NORMALS: patient oriented x3, CN's II-XII intact bilaterally, moves all extremities and no focal motor deficits Psych: COMMON NORMALS: mental status grossly normal, Normal thought process present and cooperative THOUGHT PROCESS: Normal thought process present Data : 07/18/21 05:03 07/18/21 05:03 Micro: Microbiology 07/18/21 11:08 Blood Culture - Preliminary Blood SPECIMEN COLLECTED 07/18/21 09:37 Blood Culture - Preliminary Blood SPECIMEN COLLECTED A&P Assessment and plan (1) Acute hypercapnic respiratory failure: -Secondary to COPD, broken BiPAP machine, right lower lobe pneumonia, A. fib -Does clinically look dehydrated, BNP is not elevated Plan: -Currently in ER hold, admit to CSU -We will try amiodarone bolus, followed by amiodarone drip -If he continues to remain hypotensive and have runs of A. fib will discuss with cardiology about cardioversion -Anticoagulation contraindicated given history of GI bleeds -Continue BiPAP, monitor mentation, monitor ABG -Continue Solu-Medrol 125, followed by 40 every 8 -Continue Rocephin and azithromycin -Hold diuretic therapy -Continue aspirin, statin, cardiac echo ordered -Full code -SCDs dvt prophylaxis, Lovenox contraindicated Chest pain -Baseline troponin 118, 6-hour 146, delta 28.9 -EKG shows A. fib with RVR -BNP 382 -Currently chest pain-free -Likely supply demand ischemia for A. fib with RVR, however cannot rule out underlying cardiac etiology given history of CAD status post stenting x2 Plan -Continue aspirin, statin -Cardiac echocardiogram ordered -Nitro for chest pain Type 2 diabetes mellitus, glargine 15 units at bedtime, continue insulin sliding scale DAYNE, BiPAP as above Hypertension, hold home amlodipine Hyperthyroidism? Diagnosis not seen in chart, but previous TSHs have been low, continue methimazole 15 mg p.o. daily, will check TSH, T3, T4 Hyponatremia, creatinine 1.1, looks clinically dehydrated, has received IV h ydration as above Status: Acute (2) Atrial fibrillation with rapid ventricular response: Status: Acute (3) Chest pain: Status: Acute (4) Pneumonia: Status: Acute Qualifiers: Pneumonia type: due to unspecified organism Laterality: unspecified laterality Lung location: unspecified part of lung Qualified Code(s): J18.9 - Pneumonia, unspecified organism (5) Acute exacerbation of chronic obstructive airways disease: Status: Acute (6) CHF (congestive heart failure): Status: Acute Qualifiers: Heart failure type: unspecified Heart failure chronicity: acute on chronic Qualified Code(s): I50.9 - Heart failure, unspecified (7) DAYNE (obstructive sleep apnea): Status: Acute (8) Hypertension: Status: Acute (9) Diabetes: Status: Acute (10) CAD (coronary artery disease): Status: Acute Attestations Medical Necessity Statement*: Patient requires hospitalization for acute hypercapnic respiratory failure secondary to COPD, A. 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
[2021-07-18 13:17] LABS: Glucose Point of Care 256 mg/dL (70-110)
[2021-07-18] MEDS: lactated ringers 500 ML 999 ML IV (14:19)
[2021-07-18 14:23] LABS: Thyroid Stimulating Hormone 0.48 uIU/mL (0.27-4.20)
[2021-07-18 15:11] LABS: Free T4 Free Thyroxine 1.32 ng/dL (0.82-1.77); T3 Free 2.7 PG/ML (2.0-4.4)
[2021-07-18 17:09] LABS: Glucose Point of Care 354 mg/dL (70-110)
--- NOTE | 2021-07-18 18:24 | PC.NURSE ---
Admit Note Patient admitted to [112-2] from [er] via [w/c]. Covering service notified. Orders reviewed & will continue to monitor. Patient and/or inside outside sales representative oriented to environment, equipment, and informed of the following as found in the admission booklet: patient rights & responsibilities, visitor policy, hand and respiratory hygiene practice. Other education includes: [instruction in amioderone]. Patient and/or inside outside sales representative verb understanding of instructions].
--- NOTE | 2021-07-18 19:17 | PC.NURSE ---
Shift Note Frequent safety and comfort rounds continue. Orders and/or nursing care completed as indicated. Patient monitored for response to intervention and treatment(s). Education provided included instruction of amioderone. Patient and/or sales representative trainee verb understanding of instruction]. Will continue to monitor.
[2021-07-18 20:25] LABS: Glucose Point of Care 461 mg/dL (70-110)
[2021-07-18] MEDS: potassium chloride ER 20 mEq Tablet PO (21:33)
[2021-07-18] MEDS: atorvastatin 40 mg Tablet PO (21:33)
[2021-07-18] MEDS: amiodarone 200 mg Tablet 400 MG PO (21:33)
[2021-07-18] MEDS: insulin glargine 100 units/1 mL 15 UNIT SUBCUT (21:34)
[2021-07-19] VITALS (47 sets, daily range): BP systolic 118–152; BP diastolic 45–93; PULSE 79–100; RESP 14–32; TEMP 36.8; O2SAT 87–97
[2021-07-19 05:52] LABS: Basophils % 0.1 %; Hemoglobin 14.5 g/dL (11.7-16.6); Lymphocytes # 0.2 10^3/uL (0.8-4.8); Lymphocytes % 2.3 %; Mean Corpuscular HGB Conc 33.7 g/dL (30.0-36.0); Mean Corpuscular Hemoglobin 29.6 pg (28.0-34.0); Mean Corpuscular Volume 87.8 fl (80-94); Mean Platelet Volume 11.3 fL (7.4-10.4); Monocytes # 0.3 10^3/uL (0.2-0.9); Neutrophils # 9.54 10^3/uL (1.8-7.7); Nucleated Red Blood Cells % 0 %; Platelet Count 259 10^3/cmm (130-400); Red Cell Distribution Width 14.9 % (12.1-15.1); White Blood Count 10.1 10^3/uL (4.0-10.0)
[2021-07-19 06:08] LABS: INR 0.97 (0.8-1.2)
[2021-07-19 06:15] LABS: Alanine Aminotransferase 13 U/L (0-41); Albumin Level 3.3 g/dL (3.5-5.2); Alkaline Phosphatase 75 IU/L (40-130); Anion Gap 16.7 (5-19); Aspartate Amino Transferase 14 U/L (0-40); Blood Urea Nitrogen 50 mg/dL (8-23); C Reactive Protein 15.3 mg/L (0.0-4.9); Calcium 7.8 mg/dL (8.5-10.5); Carbon Dioxide 34 mmol/L (22-29); Chloride 81 mmol/L (98-107); Globulin 2.3 g/dL (1.3-4.6); Glomerular Filtration Rate 61.1 mL/min (90-130); Glucose 358 mg/dL (65-115); Magnesium 2.5 mg/dL (1.7-2.3); Osmolality Calculated 294 mOsm/kg (285-295); Phosphorus 3.1 mg/dL (2.5-4.5); Potassium 3.7 mmol/L (3.5-5.1); Sodium 128 mmol/L (136-145); Total Bilirubin 0.3 mg/dL (0.15-1.2); Total Protein 5.6 g/dL (6.6-8.7)
[2021-07-19 06:17] LABS: Lactate (Lactic Acid level) 3.4 mmol/L (0.5-2.2)
[2021-07-19 06:26] LABS: NT Pro B Type Natriuretic Pept 1562 pg/mL (0-125); Procalcitonin 0.16 ng/mL (0-0.5)
[2021-07-19 06:39] LABS: Glucose Point of Care 316 mg/dL (70-110)
[2021-07-19] MEDS: roflumilast 500 mcg Tablet PO (06:49)
[2021-07-19] MEDS: dilTIAZem ER (24HR) 240 mg Capsule PO (06:50)
[2021-07-19] MEDS: potassium chloride ER 20 mEq Tablet PO ×2 (06:50→20:46)
[2021-07-19] MEDS: ipratropium-albuterol 3 mL Neb INHALATION ×4 (08:38→20:01)
--- NOTE | 2021-07-19 08:39 | PC.CHAP ---
Pastoral Care Encounter/Spiritual Assessment Type of Contact [] Declined pulmonary disease specialist visit [] Patient/Family/Request visit [] Outpatient visit [] Follow-up visit [] Physician referral [] Code/Alert [x] Routine visit [] Staff referral [] Actively dying [] Patient sleeping [] Family support [] [] Out of room [] Palliative care [] [] Receiving care in room [] Pre-surgical visit [] Trauma [] Long length of stay [] ICU visit [] Other: Relational/Emotional Strength [] Patient feels connected with others/family/visitors/staff [] Distress [] Loneliness/isolation [] Abandonment Spirituality of Patient [] Person of Margret [] Attends Pentecostalism of their Margret [] Believes in Prayer [] Reads Bible or Anabaptism materials [] There are Spiritual issues to be addressed 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 Factory Clerk Interventions [x] Prayer [x] Active listening [x] Non-anxious presence [x] Spiritual/emotional support [] Crisis/trauma care [] Spiritual counseling [] Bereavement support [] Provided bereavement packet [] Provided Bible/devotional materials [] Provided toy/stuffed animal, coloring book to patient or family member [] Provided Communion [] Anointing/[place] [] Salvation [x] Completed spiritual assessment [] Other: Impact on Illness or Injury [] Angry [] Fearful [] Anxious [] Often cries [] Exhaustion [] Unable to work [] Unable to attend scientology [] Unable to walk/stand [] Unable to read [] Unable to drive [] Unable to eat/drink [] Unable to sleep [] Unable to be with family [] Patient intubated [] Other: Summary patient feeling stronger.. had breakfast.. ready to return home.. has an appointment in rehab Time spent with patient 10 min
--- NOTE | 2021-07-19 09:04 | USCV_ITS ---
Nagi Cuellar Age: 65 Gender: M : 1955 Exam Date: 07/19/2021 06:25 Ordering Phys: Unruly Bass MD Technologist: Nasreen Farias [place] [facility] [place]: SOB BP: 152 / 76 HR: 83 Rhythm: Sinus Technical Quality: Adequate MEASUREMENTS (Male / Female) Normal Values 2D ECHO LV Diastolic Diameter PLAX 4.6 cm 4.2 - 5.9 / 3.9 - 5.3 cm LV Systolic Diameter PLAX 3.3 cm IVS Diastolic Thickness 1.7 cm 0.6 - 1.0 / 0.6 - 0.9 cm IVS Systolic Thickness 2.3 cm LVPW Diastolic Thickness 1.8 cm 0.6 - 1.0 / 0.6 - 0.9 cm LVPW Systolic Thickness 2.0 cm LVOT Diameter 2.0 cm LV Ejection Fraction 2D Teich 53.5 % LV Ejection Fraction MOD 2C 57.5 % LV Ejection Fraction 2C AL 56.2 % LA Diameter 3.0 cm LA Width 3.3 cm LA Height 3.6 cm RA Width 3.4 cm RA Height 3.8 cm Aorta at Sinotubular Diameter 3.0 cm M-MODE Aortic Annulus Diameter 3.0 cm LA Ao Ratio MM 1.0 DOPPLER AV Peak Velocity 190.3 cm/s LVOT Peak Velocity 155.0 cm/s AV Area Cont Eq vti 2.9 cm squared AV Area Cont Eq pk 2.6 cm squared MV Peak Velocity 124.0 cm/s MV Area PHT 3.2 cm squared Mitral E to A Ratio 0.8 MV E' Velocity 48.0 cm/s Mitral E to MV E' Ratio 12.0 Mitral E to LV E' Lateral Ratio 9.9 Mitral E to LV E' Septal Ratio 15.3 TR Peak Velocity 189.4 cm/s TR Peak Gradient 14.3 mmHg TR Mean Velocity 171.7 cm/s TR Mean Gradient 11.8 mmHg TR Velocity Time Integral 44.4 cm TV Peak E Velocity 47.0 cm/s Right Atrial Pressure 3.0 mmHg Pulmonary Artery Systolic Pressu 17.3 mmHg PV Peak Velocity 120.0 cm/s RV Acceleration Time 0.1 s RV Ejection Time 0.3 s RV AcT/ET 0.4 FINDINGS Left Ventricle Normal left ventricular size, systolic function and increased wall thickness, with no regional wall motion abnormalities. Left ventricular ejection fraction is estimated at 65-70 %. Grade II diastolic dysfunction, moderately elevated filling pressures. Right Ventricle Normal right ventricular size and systolic function. Right ventricular systolic pressure 17.3 mmHg. Right Atrium Normal right atrial size. Right atrial pressure estimated at 8 mm Hg. Left Atrium Mildly increased left atrial size. Mitral Valve Structurally normal mitral valve. No mitral valve stenosis. No significant mitral valve regurgitation. Aortic Valve Mildly thickened trileaflet aortic valve. No aortic valve stenosis. No aortic valve regurgitation. Tricuspid Valve Structurally normal tricuspid valve. Mild tricuspid valve regurgitation. Pulmonic Valve Pulmonic valve not well visualized. No pulmonary valve stenosis. No significant pulmonary valve regurgitation. Pericardium No pericardial effusion. Aorta Normal-sized aortic root. Normal sized inferior vena cava with decreased respiratory variation. CONCLUSIONS 1. Normal left ventricular size, systolic function and increased wall thickness, with no regional wall motion abnormalities. Left ventricular ejection fraction is estimated at 65-70 %. Grade II diastolic dysfunction, moderately elevated filling pressures. 2. Normal right ventricular size and systolic function. 3. Mild tricuspid valve regurgitation. 4. There may not have been any significant change when compared to previous echocardiogram dated 04/30/2018. Krystal Meneses MD (Electronically Signed) Final Date: 20 July 2021 12:17 S
[2021-07-19] MEDS: amiodarone 200 mg Tablet 400 MG PO ×2 (10:46→18:12)
[2021-07-19] MEDS: aspirin 81 mg EC Tablet PO (10:53)
[2021-07-19] MEDS: sacubitril/valsartan 24-26 mg Tablet 1 EACH PO ×2 (10:55→18:12)
[2021-07-19] MEDS: methIMAzole 5 MG Tablet PO (10:56)
[2021-07-19] MEDS: FUROsemide 40 mg Tablet PO ×2 (10:56→18:12)
[2021-07-19] MEDS: cefTRIAXone 1,000 MG in sodium chloride 0.9% (plus) 50 ML 100 MG IV (10:58)
[2021-07-19] MEDS: pantoprazole DR 40 mg Tablet PO (10:58)
[2021-07-19] MEDS: azithromycin 500 MG in sodium chloride 0.9% 250 ML 250 MG IV (13:14)
[2021-07-19 13:29] LABS: Glucose Point of Care 327 mg/dL (70-110)
--- NOTE | 2021-07-19 14:08 | PM.PN ---
Subjective Subjective: Interval history: Patient was seen and examined this morning,says sob has improved,deny any chest pain. In NSR. Medications: Reviewed: Yes Vitals/I&O/Wt Last Vital Signs Temp 98.3 F 07/19/21 04:30 Pulse 85 07/19/21 13:50 Resp 20 H 07/19/21 13:50 BP 128/69 07/19/21 13:50 Pulse Ox 93 07/19/21 13:50 07/18/21 07/19/21 07/19/21 22:59 06:59 14:59 Intake Total 981.134 / 2331.134 830 / 3161.134 326.866 / 326.866 Output Total 200 / 200 1750 / 1950 425 / 425 Balance 781.134 / 2131.134 -920 / 1211.134 -98.134 / -98.134 Weight last 48 hrs Weight 94.376 kg Weight 95.708 kg Physical Exam Const: COMMON NORMALS: patient oriented x3 HENMT: COMMON NORMALS: normocephalic and atraumatic HEAD & SCALP: normocephalic and atraumatic Resp: COMMON NORMALS: clear to auscultation bilaterally EFFORT & INSPECTION: Yes symmetric chest movement AUSCULTATION: clear to auscultation bilaterally OTHER: Diminshed Air entry B/L Cardio: COMMON NORMALS: regular rate, regular rhythm, S1 normal heart sound present, S2 normal heart sound present, No gallops present (Cardio), No murmurs present (Cardio), No rub (Cardio) and Peripheral pulses 2+ throughout RATE: regular rate RHYTHM: regular rhythm HEART SOUNDS: S1 normal heart sound present and S2 normal heart sound present PERIPHERAL PULSES: Peripheral pulses 2+ throughout GI: COMMON NORMALS: Normal to inspection, nondistended, normoactive bowel sounds present, Soft to palpation, non-tender, No hepatosplenomegaly present and no masses AUSCULTATION: Yes normoactive bowel sounds PALPATION: Yes Soft to palpation and Yes No hepatosplenomegaly present RECTAL EXAM: Yes deferred Extremity: COMMON NORMALS: no clubbing, cyanosis or edema and no pedal edema Neuro: COMMON NORMALS: patient oriented x3 Data : 07/19/21 05:10 07/19/21 05:10 Micro: Microbiology 07/18/21 11:08 Blood Culture - Preliminary Blood NEGATIVE TO DATE 07/18/21 09:37 Blood Culture - Preliminary Blood NEGATIVE TO DATE A&P Assessment and plan (1) Acute hypercapnic respiratory failure: -Secondary to COPD, broken BiPAP machine, right lower lobe pneumonia, A. fib Plan: -Patient was on amiodarone bolus, followed by amiodarone drip. Currently converted to NSR On PO amidarone -Anticoagulation contraindicated given history of GI bleeds -Continue BiPAP, monitor mentation, monitor ABG - Solu-Medrol 40mg every 8h -Continue Rocephin and azithromycin -Lasix 40 mg po BID -Continue aspirin, statin, cardiac echo ordered -SCDs dvt prophylaxis, Lovenox contraindicated Chest pain -Baseline troponin 118, 6-hour 146, delta 28.9 -EKG shows A. fib with RVR -BNP 382 -Currently chest pain-free -Likely supply demand ischemia for A. fib with RVR, however cannot rule out underlying cardiac etiology given history of CAD status post stenting x2 Plan -Continue aspirin, statin -Cardiac echocardiogram ordered -Nitro for chest pain Type 2 diabetes mellitus, glargine 15 units at bedtime, continue insulin sliding scale DAYNE, BiPAP as above Hypertension, hold home amlodipine Hyperthyroidism? Diagnosis not seen in chart, but previous TSHs have been low, continue methimazole 15 mg p.o. daily, will check TSH, T3, T4 Hyponatremia, creatinine 1.1, looks clinically dehydrated, has received IV hydration as above Status: Acute (2) Atrial fibrillation with rapid ventricular response: Status: Acute (3) Chest pain: Status: Acute (4) Pneumonia: Status: Acute Qualifiers: Pneumonia type: due to unspecified organism Laterality: unspecified laterality Lung location: unspecified part of lung Qualified Code(s): J18.9 - Pneumonia, unspecified organism (5) Acute exacerbation of chronic obstructive airways disease: Status: Acute (6) CHF (congestive heart failure): Status: Acute Qualifiers: Heart failure type: unspecified Heart failure chronicity: acute on chronic Qualified Code(s): I50.9 - Heart failure, unspecified (7) DAYNE (obstructive sleep apnea): Status: Acute (8) Hypertension: Status: Acute (9) Diabetes: Status: Acute (10) CAD (coronary artery disease): Status: Acute Attestations Medical Necessity Statement*: Patient needs to be in hospital for the management of COPD Exacerbation. 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
[2021-07-19 14:32] LABS: T4 Total 7.7 mcg/dL (4.9-10.5)
[2021-07-19 18:30] LABS: Glucose Point of Care 330 mg/dL (70-110)
[2021-07-19 20:27] LABS: Glucose Point of Care 259 mg/dL (70-110)
[2021-07-19] MEDS: insulin glargine 100 units/1 mL 15 UNIT SUBCUT (20:46)
[2021-07-19] MEDS: atorvastatin 40 mg Tablet PO (20:46)
[2021-07-20] VITALS (18 sets, daily range): BP systolic 121–136; BP diastolic 63–73; PULSE 78–110; RESP 8–25; TEMP 36.7; O2SAT 82–94
[2021-07-20] MEDS: ipratropium-albuterol 3 mL Neb INHALATION ×4 (00:12→11:48)
[2021-07-20] MEDS: trazodone 50 mg Tablet PO (00:16)
[2021-07-20 05:26] LABS: Basophils % 0.2 %; Hematocrit 43.7 % (42.0-52.0); Hemoglobin 14.5 g/dL (11.7-16.6); Lymphocytes # 0.2 10^3/uL (0.8-4.8); Lymphocytes % 1.7 %; Mean Corpuscular HGB Conc 33.2 g/dL (30.0-36.0); Mean Corpuscular Hemoglobin 29.5 pg (28.0-34.0); Mean Corpuscular Volume 88.8 fl (80-94); Mean Platelet Volume 11.2 fL (7.4-10.4); Monocytes # 0.2 10^3/uL (0.2-0.9); Monocytes % 1.6 %; Neutrophils # 11.67 10^3/uL (1.8-7.7); Nucleated Red Blood Cells % 0 %; Platelet Count 244 10^3/cmm (130-400); Red Blood Count 4.92 10^6/uL (4.1-5.3); Red Cell Distribution Width 15.4 % (12.1-15.1); White Blood Count 12.2 10^3/uL (4.0-10.0)
[2021-07-20 05:34] LABS: INR 0.88 (0.8-1.2)
[2021-07-20 05:36] LABS: Lactate (Lactic Acid level) 3.1 mmol/L (0.5-2.2)
[2021-07-20 05:41] LABS: Alanine Aminotransferase 15 U/L (0-41); Albumin Level 3.7 g/dL (3.5-5.2); Alkaline Phosphatase 78 IU/L (40-130); Anion Gap 11.5 (5-19); Aspartate Amino Transferase 12 U/L (0-40); Blood Urea Nitrogen 40 mg/dL (8-23); C Reactive Protein 8.1 mg/L (0.0-4.9); Calcium 8.6 mg/dL (8.5-10.5); Chloride 79 mmol/L (98-107); Globulin 2.3 g/dL (1.3-4.6); Glomerular Filtration Rate 75.5 mL/min (90-130); Glucose 295 mg/dL (65-115); Magnesium 2.2 mg/dL (1.7-2.3); Osmolality Calculated 287 mOsm/kg (285-295); Phosphorus 3.8 mg/dL (2.5-4.5); Potassium 3.5 mmol/L (3.5-5.1); Sodium 128 mmol/L (136-145); Total Bilirubin 0.3 mg/dL (0.15-1.2)
[2021-07-20 05:48] LABS: NT Pro B Type Natriuretic Pept 1128 pg/mL (0-125); Procalcitonin 0.18 ng/mL (0-0.5)
[2021-07-20 05:51] LABS: Carbon Dioxide 41 mmol/L (22-29)
--- NOTE | 2021-07-20 06:00 | ECG_ITS ---
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 Measurements Intervals [place] Rate: 81 P: 54 FL: 212 QRS: 4 QRSD: 167 T: 39 QT: 365 QTc: 426 Interpretive Statements SINUS RHYTHM WITH FIRST DEGREE AV BLOCK POSSIBLE LEFT ATRIAL ENLARGEMENT [-0.1mV P WAVE IN V1/V2] INTRAVENTRICULAR CONDUCTION DELAY [130+ ms QRS DURATION] Compared to ECG 07/18/2021 11:43:19 First degree AV block now present Intraventricular conduction delay now present Atrial flutter no longer present Incomplete right bundle-branch block no longer present ST (T wave) deviation no longer present Electronically Signed On 07-20-2021 23:47:53 CDT by Dannielle Butler M.D. [id number]
[2021-07-20] MEDS: roflumilast 500 mcg Tablet PO (06:39)
[2021-07-20] MEDS: potassium chloride ER 20 mEq Tablet PO (06:39)
[2021-07-20] MEDS: dilTIAZem ER (24HR) 240 mg Capsule PO (06:39)
[2021-07-20 06:53] LABS: Glucose Point of Care 315 mg/dL (70-110)
[2021-07-20] MEDS: cefTRIAXone 1,000 MG in sodium chloride 0.9% (plus) 50 ML 100 MG IV (10:04)
[2021-07-20] MEDS: methIMAzole 5 MG Tablet PO (10:05)
[2021-07-20] MEDS: FUROsemide 40 mg Tablet PO (10:05)
[2021-07-20] MEDS: amiodarone 200 mg Tablet 400 MG PO (10:05)
[2021-07-20] MEDS: sacubitril/valsartan 24-26 mg Tablet 1 EACH PO (10:06)
[2021-07-20] MEDS: aspirin 81 mg EC Tablet PO (10:06)
[2021-07-20] MEDS: azithromycin 500 MG in sodium chloride 0.9% 250 ML 250 MG IV (10:06)
[2021-07-20] MEDS: pantoprazole DR 40 mg Tablet PO (10:06)
--- NOTE | 2021-07-20 17:37 | P.DS_ITS ---
Discharge Providers Date of Admission: 07/18/21 07:52 Date of Discharge: July 20, 2021 Attending Provider at Admission: Unruly Bass MD Attending Provider at Discharge: Marcos Rubin MD Primary Care Provider: Nasreen Gomez Diagnoses at Discharge Discharge Diagnosis (1) Acute hypercapnic respiratory failure: Status: Acute (2) Atrial fibrillation with rapid ventricular response: Status: Acute (3) Chest pain: Status: Acute (4) Pneumonia: Status: Acute Qualifiers: Laterality: unspecified laterality Lung location: unspecified part of lung Pneumonia type: due to unspecified organism Qualified Code(s): J18.9 - Pneumonia, unspecified organism (5) Acute exacerbation of chronic obstructive airways disease: Status: Acute (6) CHF (congestive heart failure): Status: Acute Qualifiers: Heart failure chronicity: acute on chronic Heart failure type: unspecified Qualified Code(s): I50.9 - Heart failure, unspecified (7) DAYNE (obstructive sleep apnea): Status: Acute (8) Hypertension: Status: Acute Permanent problem details: -hypertensive, continue to monitor vital signs -continue oral antihypertensives; increased dose of amlodipine (9) Diabetes: Status: Acute Permanent problem details: -most recent A1c-5.8 -Insulin dependent at baseline -Accu-Cheks, scheduled insulin, ISS -Hypoglycemia precautions; hyperglycemic likely secondary to steroids (10) CAD (coronary artery disease): Status: Acute Reason for Visit Reason for Visit: SOB Hospital Course Hospital Course 65 year old male with a past medical history of COPD, cor pulmonale, CAD status post stenting x2, diastolic CHF, history of atrial fibrillation on Cardizem recently started on digoxin, off anticoagulation since May 2019 due to history of GI bleed, insulin-dependent type 2 diabetes mellitus, hypertension, hyperlipidemia, DAYNE, hyperthyroidism on Tapazole chronic pain on hydrocodone who presents to [facility] due to complaints of shortness of breath, and chest pain. He is managed for acute on chronic hypercapnic hypoxic respiratory failure Secondary to COPD exacerbation secondary to right lower lobe pneumonia, patient was kept on a steroid , antibiotics Nebs , and other respiratory support. Patient was also managed for A. fib with RVR, since the patient was hypotensive he was kept on amiodarone drip, he converted to normal sinus rhythm on amiodarone drip. Digoxin was stopped on discharge, he was continued on Cardizem as well as amiodarone p.o. patient was also managed for elevated troponin likely secondary to demand ischemia secondary to A. fib with RVR, denied any chest pain any worsening shortness of breath from the baseline shortness of breath. 2D echo was done: Which showed normal LV size and systolic function with EF of 65 to 70%, grade 2 diastolic dysfunction,moderately elevated filling pressures.Normal right ventricular size and systolic function.Mild tricuspid valve regurgitation. Hyperthyroidism continue methimazole 2.5 mg p.o daily.Type 2 diabetes mellitus, glargine 15 units at bedtime, continue insulin sliding scale. Patient responded well to the above medical management and is being discharged in stable condition.He will continue to follow cardiology as an outpatient. Physical Exam Const: COMMON NORMALS: patient oriented x3 HENMT: COMMON NORMALS: normocephalic and atraumatic HEAD & SCALP: normocephalic and atraumatic Resp: COMMON NORMALS: clear to auscultation bilaterally EFFORT & INSPECTION: Yes symmetric chest movement AUSCULTATION: clear to auscultation bilaterally OTHER: Diminshed Air entry B/L Cardio: COMMON NORMALS: regular rate, regular rhythm, S1 normal heart sound present, S2 normal heart sound present, No gallops present (Cardio), No murmurs present (Cardio), No rub (Cardio) and Peripheral pulses 2+ throughout RATE: regular rate RHYTHM: regular rhythm HEART SOUNDS: S1 normal heart sound present and S2 normal heart sound present PERIPHERAL PULSES: Peripheral pulses 2+ throughout GI: COMMON NORMALS: Normal to inspection, nondistended, normoactive bowel sounds present, Soft to palpation, non-tender, No hepatosplenomegaly present and no masses AUSCULTATION: Yes normoactive bowel sounds PALPATION: Yes Soft to palpation and Yes No hepatosplenomegaly present RECTAL EXAM: Yes deferred Extremity: COMMON NORMALS: no clubbing, cyanosis or edema and no pedal edema Neuro: COMMON NORMALS: patient oriented x3 Discharge Data Data Completed and Pending: Completed Studies During Hospitalization Category Date Time Status XR chest 1V aftab ble [id number] Urgent Exams 07/18/21 05:06 Completed CV. echo complete * [id number] Routine Ultrasound 07/19/21 09:04 Completed Pending at discharge Category Date Time Status Arterial Blood Ga s W/O [place] AM LABS Lab 07/20/21 04:00 Ordered Blood Culture Rou ashley Lab 07/18/21 11:08 Results Labs from last 24 hours 07/20/21 07/20/21 07/20/21 06:45 04:20 04:20 WBC RBC Hgb Hct MCV MCH MCHC RDW Plt Count MPV Neut % (Auto) Lymph % (Auto) [place] % (Auto) Eos % (Auto) Baso % (Auto) Neut # (Auto) Lymph # (Auto) [place] # (Auto) Eos # (Auto) Baso # (Auto) Nucleated RBC % (a uto) Nucleated RBCs # PT INR Sodium Potassium Chloride Carbon Dioxide Anion Gap BUN Creatinine GFR Calculation Glucose POC Glucose 315 H Calculated Osmolal ity Lactate 3.1 H Calcium Phosphorus Magnesium Total Bilirubin AST ALT Alkaline Phosphata se C-Reactive Protein NT-Pro-B Natriuret Pep 1128 H Total Protein Albumin Globulin Procalcitonin 0.18 07/20/21 07/20/21 07/20/21 04:20 04:20 04:20 WBC 12.2 H RBC 4.92 Hgb 14.5 Hct 43.7 MCV 88.8 MCH 29.5 MCHC 33.2 RDW 15.4 H Plt Count 244 MPV 11.2 H Neut % (Auto) 96.0 Lymph % (Auto) 1.7 [place] % (Auto) 1.6 Eos % (Auto) 0.0 Baso % (Auto) 0.2 Neut # (Auto) 11.67 H Lymph # (Auto) 0.2 L [place] # (Auto) 0.2 Eos # (Auto) 0.0 Baso # (Auto) 0.0 Nucleated RBC % (a uto) 0 Nucleated RBCs # 0.0 PT 12.20 INR 0.88 Sodium 128 L Potassium 3.5 Chloride 79 L Carbon Dioxide 41 H Anion Gap 11.5 BUN 40 H Creatinine 1.0 GFR Calculation 75.5 L Glucose 295 H POC Glucose Calculated Osmolal ity 287 Lactate Calcium 8.6 Phosphorus 3.8 Magnesium 2.2 Total Bilirubin 0.3 AST 12 ALT 15 Alkaline Phosphata se 78 C-Reactive Protein 8.1 H NT-Pro-B Natriuret Pep Total Protein 6.0 L Albumin 3.7 Globulin 2.3 Procalcitonin 07/19/21 07/19/21 20:18 18:10 WBC RBC Hgb Hct MCV MCH MCHC RDW Plt Count MPV Neut % (Auto) Lymph % (Auto) [place] % (Auto) Eos % (Auto) Baso % (Auto) Neut # (Auto) Lymph # (Auto) [place] # (Auto) Eos # (Auto) Baso # (Auto) Nucleated RBC % (a uto) Nucleated RBCs # PT INR Sodium Potassium Chloride Carbon Dioxide Anion Gap BUN Creatinine GFR Calculation Glucose POC Glucose 259 H 330 H Calculated Osmolal ity Lactate Calcium Phosphorus Magnesium Total Bilirubin AST ALT Alkaline Phosphata se C-Reactive Protein NT-Pro-B Natriuret Pep Total Protein Albumin Globulin Procalcitonin Vitals: Last Vital Signs Temp 98.0 F 07/20/21 08:00 Pulse 85 07/20/21 15:12 Resp 18 07/20/21 15:12 BP 133/63 07/20/21 15:12 Pulse Ox 92 07/20/21 15:12 Discharge Plan Discharge Patient Disposition: Home Condition: Stable Prescriptions: New amiodarone 400 mg tablet 400 mg PO BID Qty: 14 RF: 0 amiodarone 200 mg tablet 200 mg PO DAILY Qty: 30 RF: 0 prednisone 20 mg tablet 40 mg PO DAILY Qty: 7 RF: 0 Continued metolazone 2.5 mg tablet 2.5 mg PO .Every other day 30 Days Qty: 30 RF: 2 Spiriva Respimat 1.25 mcg/actuation mist See Rx Instructions .ROUTE .COMPLEX Qty: 4 RF: 3 trazodone 50 mg Tablet 50 mg PO BEDTIME@2100 RF: 0 sodium chloride [Saline Mist] 0.65 % Aerosol,[place] 1 spray nasal PRN PRN (Reason: Dryness) Qty: 0 RF: 0 albuterol sulfate 1.25 mg/3 mL Solution For Nebulization 1.25 mg INHALATION Q4H PRN (Reason: Shortness Of Breath) 30 Days Qty: 30 RF: 3 amlodipine 5 mg Tablet 5 mg PO DAILY@0700 RF: 0 methimazole 5 mg tablet 2.5 mg PO DAILY@0700 RF: 0 diltiazem HCl [Cartia XT] 240 mg capsule,extended release 24hr 240 mg PO DAILY@0700 RF: 0 rosuvastatin 10 mg tablet 10 mg PO DAILY@0700 RF: 0 Januvia 50 mg tablet 50 mg PO DAILY@0700 RF: 0 Daliresp 500 mcg tablet 500 mcg PO DAILY@0700 RF: 0 potassium chloride 20 mEq tablet extended release 20 meq PO BID@0700,2100 RF: 0 Lantus Solostar U-100 Insulin 100 unit/mL (3 mL) insulin pen 30 unit SUBCUT BEDTIME RF: 0 Farxiga 10 mg tablet 10 mg PO DAILY RF: 0 furosemide 40 mg tablet 80 mg PO BID RF: 0 omeprazole 40 mg capsule,delayed release(DR/EC) 40 mg PO DAILY RF: 0 propranolol 40 mg Tablet 40 mg PO BID RF: 0 Jardiance 25 mg tablet 25 mg PO DAILY RF: 0 Entresto 24-26 mg Tablet 1 tab PO BID RF: 0 Discontinued digoxin 125 mcg (0.125 mg) tablet 125 mcg PO DAILY@0700 RF: 0 Discharge Orders: Discharge Order (Routine); Ordered 07/20/21 Ordered By: Marcos Rubin Referrals: Krystal Meneses MD [Physician] - 1 week (Please follow-up with Dr. Meneses on at 11:00A.M. If you have any questions or need to reschedule. Please call ) Discharge Diet: Diabetic Discharge Activity: Resume usual activity Patient Instructions: Amiodarone (By mouth), Coronary Artery Disease (DC), Hypertension (DC), Opioid Safety, Obstructive Sleep Apnea Discharge Attestations Time Spent in Discharge Care*: less than 30 min Specific Discharge Activities: educating patient, educating and/or supporting family/caregiver, discussing with pcp/other providers, discussing with sample case porter/social workers/dc planners, documenting/other paperwork and evaluating patient/reviewing data Status at Discharge: Cognitive status at discharge: cognitively intact , Behavioral status at discharge: cooperative , Functional status at discharge: independent ambulation Overall status at discharge: patient is back to baseline Quality Metrics Clinical Quality Measures During this hospital stay, did patient experience: None Coding Level of Care Code Acute Chg FW DC note Exam Detailed Diagnoses Acute hypercapnic respiratory failure J96.02 Atrial fibrillation with rapid ventricular response I48.91 Chest pain R07.9 Pneumonia J18.9 Laterality: unspecified laterality Lung location: unspecified part of lung Pneumonia type: due to unspecified organism Acute exacerbation of chronic obstructive airways disease J44.1 CHF (congestive heart failure) I50.9 Heart failure chronicity: acute on chronic Heart failure type: unspecified DAYNE (obstructive sleep apnea) G47.33 Hypertension I10 Diabetes E11.9 CAD (coronary artery disease) I25.10
[2021-07-20 18:00] LABS: Glucose Point of Care 419 mg/dL (70-110)
--- NOTE | 2021-07-20 18:36 | PC.NURSE ---
Pt discharged home at approximately 1530. IV removed no redness or swelling noted. Pts discharge instructions given along with prescriptions and follow up appointments. Pt had no c/o pain or discomfort at the present time of discharge.
--- NOTE | 2021-07-21 09:39 | PC.SOCIAL ---
follow up call made. patient is heading to the pharmacy to get his prescriptions. patient denies any concerns or needs. patient is aware of follow up appointment with Dr. Meneses.
--- NOTE | 2021-07-21 09:41 | PC.SOCIAL ---
Clarified with Dr Rubin that prednisone is 40mg once daily for 7 days.Updated pharmacy they can fill tow of the 20mg tablets once daily to equal 40mg for 7 days quanitify of 14 spoke to Brandi.
--- NOTE | 2021-07-23 07:51 | PC.RESP ---
PATIENT CURRENTLY ACTIVE IN PULMONARY REHAB.
== END 2021-07-20 15:35 | disposition home or self-care (01) | DRG 193 ==
LOC: ER 05:35 → ER IP 08:25 → ER 12:26 → CSU 16:04
PROVIDERS: Admitting Provider Family Medicine; Emergency Provider Emergency Medicine; PCP Physician Assistant; Visit Provider Internal Medicine
DX: J18.9 Pneumonia, unspecified organism (principal); J96.22 Acute and chronic respiratory failure with hypercapnia; J96.21 Acute and chronic respiratory failure with hypoxia; I50.32 Chronic diastolic (congestive) heart failure; J44.1 Chronic obstructive pulmonary disease with (acute) exacerbation; J44.0 Chronic obstructive pulmonary disease with (acute) lower respiratory infection; I48.91 Unspecified atrial fibrillation; E11.9 Type 2 diabetes mellitus without complications; I11.0 Hypertensive heart disease with heart failure; G47.33 Obstructive sleep apnea (adult) (pediatric); F17.210 Nicotine dependence, cigarettes, uncomplicated; I25.10 Atherosclerotic heart disease of native coronary artery without angina pectoris; E78.5 Hyperlipidemia, unspecified; G89.29 Other chronic pain; E05.90 Thyrotoxicosis, unspecified without thyrotoxic crisis or storm; E86.0 Dehydration; Z20.822 Contact with and (suspected) exposure to COVID-19; Z95.5 Presence of coronary angioplasty implant and graft; Z87.01 Personal history of pneumonia (recurrent); Z80.9 Family history of malignant neoplasm, unspecified; Z80.1 Family history of malignant neoplasm of trachea, bronchus and lung
CPT/HCPCS: 36415; 36416; 36600; 71045; 80051; 80053; 80061; 80162; 81001; 82330; 82805; 82962; 83036; 83605; 83735; 83880; 84100; 84145; 84436; 84439; 84443; 84481; 84484; 85025; 85610; 86140; 87040; 87426; 93005; 93306; 94640; 94660; 96365; 96366; 96367; 96372; 99291; 99292; J0282; J0456; J0696; J1160; J1815 ×2; J2920; J2930; J3475; J7040; J7050; J7060

== ENCOUNTER 2021-08-02 03:39 | Inpatient (IN) | payer MEDICARE, MEDICAID, SELFPAY ==
[2021-08-02] VITALS (39 sets, daily range): BP systolic 69–122; BP diastolic 38–74; PULSE 66–130; RESP 11–30; TEMP 36.5–36.7; O2SAT 78–97; BMI 33.3
--- NOTE | 2021-08-02 03:22 | XRR_ITS ---
PROCEDURE INFORMATION: Exam: XR Chest Exam date and time: 08/02/2021 3:22 AM Age: 65 years old Clinical indication: Other: Tachycardia; Chest wall pain; Additional info: Cp TECHNIQUE: Imaging protocol: XR of the chest. Views: 1 view. COMPARISON: CR (CHEST, ) 07/18/2021 5:22 AM FINDINGS: Lungs: Continued slightly prominent lung volumes. Interval mild increase in the patchy densities in the right lung base. No definite change in the slight atelectasis in the left lung base. Pleural spaces: Still no apparent pneumothorax. No current suggestion of pleural fluid. Heart/Mediastinum: No interval cardiomegaly. Bones/joints: No visible acute bony disease. XR/XR chest 1V portable [id number] IMPRESSION: Interval slight worsening of the right basilar atelectasis/pneumonia. No significant change in the left basilar atelectasis or the rest of the chest.
--- NOTE | 2021-08-02 04:15 | ECG_ITS ---
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 Measurements Intervals [place] Rate: 127 P: [place]: QRS: 44 QRSD: 92 T: 56 QT: 310 QTc: 451 Interpretive Statements ATRIAL FIBRILLATION WITH RAPID VENTRICULAR RESPONSE WITH ABERRANT CONDUCTION OR VENTRICULAR PREMATURE COMPLEXES INDETERMINATE AXIS INCOMPLETE RIGHT BUNDLE BRANCH BLOCK [90+ ms QRS DURATION, TERMINAL R IN V1/V2, 40+ ms S IN I/aVL/V4/V5/V6] ANTEROSEPTAL MYOCARDIAL INFARCTION , PROBABLY OLD [40+ ms Q WAVE IN V1-V4] Compared to ECG 07/20/2021 06:33:36 Ventricular premature complex(es) now present Incomplete right bundle-branch block now present Myocardial infarct finding now present Sinus rhythm no longer present Intraventricular conduction delay no longer present Electronically Signed On 08-02-2021 22:20:09 CDT by Brian Davis M.D. [id number]
[2021-08-02] MEDS: sodium chloride 0.9% 500 ML 999 ML IV ×4 (04:25→13:28)
[2021-08-02] MEDS: morphine 4 mg/mL SDV 1 mL IVP (04:25)
[2021-08-02] MEDS: ondansetron 2 mg/ML SDV 2 mL 4 MG IVP (04:25)
[2021-08-02 04:29] LABS: Basophils % 0.2 %; Eosinophils # 0.1 10^3/uL (0.0-0.8); Eosinophils % 0.6 %; Hematocrit 46.1 % (42.0-52.0); Hemoglobin 15.7 g/dL (11.7-16.6); Lymphocytes # 1.4 10^3/uL (0.8-4.8); Lymphocytes % 8.5 %; Mean Corpuscular HGB Conc 34.1 g/dL (30.0-36.0); Mean Corpuscular Hemoglobin 30.3 pg (28.0-34.0); Mean Platelet Volume 9.6 fL (7.4-10.4); Monocytes % 6.4 %; Neutrophils # 13.37 10^3/uL (1.8-7.7); Neutrophils % 83.7 %; Nucleated Red Blood Cells % 0 %; Platelet Count 332 10^3/cmm (130-400); Red Blood Count 5.18 10^6/uL (4.1-5.3); Red Cell Distribution Width 16.7 % (12.1-15.1)
[2021-08-02 04:45] LABS: Troponin(5th) Baseline 70 ng/L (0-15)
[2021-08-02 04:54] LABS: Alanine Aminotransferase 12 U/L (0-41); Albumin Level 3.3 g/dL (3.5-5.2); Alkaline Phosphatase 69 IU/L (40-130); Anion Gap 17.6 (5-19); Aspartate Amino Transferase 10 U/L (0-40); Blood Urea Nitrogen 39 mg/dL (8-23); Calcium 8.4 mg/dL (8.5-10.5); Carbon Dioxide 37 mmol/L (22-29); Chloride 78 mmol/L (98-107); Creatine Phosphokinase 24 U/L (39-308); Globulin 2.4 g/dL (1.3-4.6); Glomerular Filtration Rate 43.9 mL/min (90-130); Glucose 79 mg/dL (65-115); NT Pro B Type Natriuretic Pept 581 pg/mL (0-125); Osmolality Calculated 278 mOsm/kg (285-295); Sodium 130 mmol/L (136-145); Total Bilirubin 0.4 mg/dL (0.15-1.2); Total Protein 5.7 g/dL (6.6-8.7)
[2021-08-02 05:10] LABS: Potassium 2.6 mmol/L (3.5-5.1)
--- NOTE | 2021-08-02 05:44 | ED_ITS ---
Documented by User: Rudy Vasquez DO 08/02/21 07:02 HPI - Chest Pain General: Chief Complaint: Chest Pain Stated Complaint: chest pain Time Seen by Provider: 08/02/21 03:54 History of Present Illness: HPI narrative: 65-year-old gentleman with a history of atrial fibrillation and COPD. He presents with chest discomfort, shortness of breath, nausea, back discomfort, and a syncopal episode this morning. He notes that he was not feeling well, so he got up out of bed, and then pain, shortness of breath, diaphoresis, and then had a syncopal episode causing him to fall. He denies significant injury. He continues to have chest and back discomfort and shortness of breath. He took nitroglycerin at home without any relief. MD complaint: chest pain and chest discomfort Pertinent past history: other Onset (ago): minute(s) Timing of current episode: constant Prior episodes: No Onset: during rest Pain location: substernal Pain radiation: back Severity: moderate Quality: aching and sharp Relieving factors: nothing Exacerbating factors: nothing Associated symptoms: Reports diaphoresis, dyspnea, nausea, palpitations, sense of impending doom and syncope; Deny abdominal pain, fever(s) or vomiting Review of Systems Const: Reports: diaphoresis; Denies: fever(s) Card: Reports: palpitations and syncope Resp: Reports: dyspnea GI: Reports: nausea; Denies: abdominal pain or vomiting [facility] ED PFSH: Medical History (Updated 08/02/21 @ 08:51 by Nagi Olivarez DO) Acute exacerbation of chronic obstructive airways disease Acute hypercapnic respiratory failure Atrial fibrillation -Currently normal sinus rhythm, heart rate controlled -continue Cardizem, digoxin -Has been off anticoagulation secondary to GI bleed while on Eliquis in May 2019 -Telemetry monitoring Atrial fibrillation with rapid ventricular response CAD (coronary artery disease) Chest pain CHF (congestive heart failure) Chronic respiratory failure with hypoxia Congestive heart failure -Clinically does not appear decompensated -has known history of chronic diastolic CHF, last echo shows ejection fraction of 60% with grade 1 diastolic dysfunction (04/2018) -continue Lasix, potassium COPD (chronic obstructive pulmonary disease) Cor pulmonale Diabetes -most recent A1c-5.8 -Insulin dependent at baseline -Accu-Cheks, scheduled insulin, ISS -Hypoglycemia precautions; hyperglycemic likely secondary to steroids Elevated troponin I level Heart attack Hypertension -hypertensive, continue to monitor vital signs -continue oral antihypertensives; increased dose of amlodipine Hypoxia Nicotine addiction DAYNE (obstructive sleep apnea) Pneumonia Surgical History H/O hernia repair Family History Mother Lung disease COPD Sister Cancer Social History Smoking and tobacco status: current every day smoker cigarettes Years cigarettes smoked: 47 [ Other cigarette details: Hx of 2PPD x 47 Years ] Quit status (tobacco): considering quitting Second hand smoke exposure: Yes Smoking risk assessment/counseling performed?: Yes Alcohol intake: current Alcohol intake frequency: holidays/special occasions only Desire information about alcohol rehabilitation?: No Counseling given: No Desire information about substance/drug rehabilitation?: No Counseling given: No Lives independently: Yes Household members: none Marital status: Single Current occupational status: 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 History of recent travel: No Current gender identity: Male Physical Exam Const: GENERAL APPEARANCE: cooperative, in distress, anxious, ill appearing and diaphoretic ORIENTATION/CONSCIOUSNESS: Yes awake, Yes oriented to person, Yes oriented to place and Yes oriented to time HENMT: COMMON NORMALS: normocephalic HEAD & SCALP: normocephalic Eye: COMMON NORMALS: Equal, round and reactive pupils present and EOMs intact bilaterally PUPIL: Yes Equal, round and reactive pupils present Chest: COMMONS NORMALS: normal inspection of the chest Resp: COMMON NORMALS: normal respiratory effort, No use of accessory muscles and clear to auscultation bilaterally AUSCULTATION: clear to auscultation bilaterally GI: COMMON NORMALS: Normal to inspection, nondistended, normoactive bowel sounds present, Soft to palpation and non-tender PALPATION: Yes Soft to palpation Neuro: SENSORIUM/ORIENTATION: Yes oriented to person, Yes oriented to place and Yes oriented to time Course Vital Signs: Vital signs: Vital Signs Temperature 97.7 F 08/02/21 03:43 Pulse Rate 81 08/02/21 08:21 Respiratory Rate 18 08/02/21 06:45 Blood Pressure 92/55 08/02/21 08:21 Pulse Oximetry 93 08/02/21 08:21 MDM - Chest Pain MDM Narrative: Medical decision making narrative: 65-year-old gentleman with chest pain, shortness of breath, and a syncopal episode at home. His potassium was 2.6. This is being repleted currently both IV and orally. His sodium is 130. White blood cell count is 16. BUN 39 creatinine 1.6. His D-dimer is elevated. Chest x-ray shows possible worsening of a previously diagnosed pneumonia. CTA of the chest is pending. He'll be checked out to Dr. Olivarez at shift change. Lab Data: Labs: Lab Results 08/02/21 08/02/21 08/02/21 03:57 03:57 03:57 WBC 16.0 10^3/uL H 10 ^3/uL (4.0-10.0) RBC 5.18 10^6/uL 10^6 /uL (4.1-5.3) Hgb 15.7 g/dL g/dL (11.7-16.6) Hct 46.1 % % (42.0-52.0) MCV 89.0 fl fl (80-94) MCH 30.3 pg pg (28.0-34.0) MCHC 34.1 g/dL g/dL (30.0-36.0) RDW 16.7 % H % (12.1-15.1) Plt Count 332 10^3/cmm 10^3 /cmm (130-400) MPV 9.6 fL fL (7.4-10.4) Neut % (Auto) 83.7 % % Lymph % (Auto) 8.5 % % Coal % (Auto) 6.4 % % Eos % (Auto) 0.6 % % Baso % (Auto) 0.2 % % Neut # (Auto) 13.37 10^3/uL H 1 0^3/uL (1.8-7.7) Lymph # (Auto) 1.4 10^3/uL 10^3/ uL (0.8-4.8) Coal # (Auto) 1.0 10^3/uL H 10^ 3/uL (0.2-0.9) Eos # (Auto) 0.1 10^3/uL 10^3/ uL (0.0-0.8) Baso # (Auto) 0.0 10^3/uL 10^3/ uL (0.0-0.1) Nucleated RBC % (a uto) 0 % % Nucleated RBCs # 0.0 /100WBC /100W BC PT 12.80 SECONDS SEC ONDS (12.1-14.9) INR 0.94 (0.8-1.2) APTT 26.2 SECONDS SECO NDS (23.9-36.7) D-Dimer 0.71 ug/mIFEU H u g/mIFEU (0-0.59) Specimen Type Sample Site ABG pH ABG pCO2 ABG pO2 ABG HCO3 ABG Base Excess Gee Test Hematocrit O2 Delivery Device O2 Liters/Min Software Engineering Analyst ID Sodium 130 mmol/L L mmol /L (136-145) Potassium 2.6 mmol/L L* mmo l/L (3.5-5.1) Chloride 78 mmol/L L mmol/ L (98-107) Carbon Dioxide 37 mmol/L H mmol/ L (22-29) Anion Gap 17.6 (5-19) BUN 39 mg/dL H mg/dL (8-23) Creatinine 1.6 mg/dL H mg/dL (0.7-1.2) GFR Calculation 43.9 mL/min L mL/ min (90-130) Glucose 79 mg/dL mg/dL (65-115) Calculated Osmolal ity 278 mOsm/kg L mOs m/kg (285-295) Lactate Calcium 8.4 mg/dL L mg/dL (8.5-10.5) Total Bilirubin 0.4 mg/dL mg/dL (0.15-1.2) AST 10 U/L U/L (0-40) ALT 12 U/L U/L (0-41) Alkaline Phosphata se 69 IU/L IU/L (40-130) Creatine Kinase 24 U/L L U/L (39-308) Troponin T Baselin e Troponin T 120 Min [place] Troponin T NT-Pro-B Natriuret Pep 581 pg/mL H pg/mL (0-125) Total Protein 5.7 g/dL L g/dL (6.6-8.7) Albumin 3.3 g/dL L g/dL (3.5-5.2) Globulin 2.4 g/dL g/dL (1.3-4.6) 09/27/21 09/27/21 09/27/21 03:57 05:30 07:15 WBC RBC Hgb Hct MCV MCH MCHC RDW Plt Count MPV Neut % (Auto) Lymph % (Auto) Coal % (Auto) Eos % (Auto) Baso % (Auto) Neut # (Auto) Lymph # (Auto) Coal # (Auto) Eos # (Auto) Baso # (Auto) Nucleated RBC % (a uto) Nucleated RBCs # PT INR APTT D-Dimer Specimen Type Arterial Sample Site Brachial, right ABG pH 7.41 (7.35-7.45) ABG pCO2 70.5 mmHg H* mmHg (35-45) ABG pO2 53.7 mmHg L mmHg (80.0-100.0) ABG HCO3 45.1 mmol/L H mmo l/L (22-26) ABG Base Excess 16.2 mmol/L H mmo l/L (-2.0-2.0) Gee Test Pos Hematocrit 47.9 % % (42-52) O2 Delivery Device Nc O2 Liters/Min 5.0 % % Software Engineering Analyst ID Tay Sodium Potassium Chloride Carbon Dioxide Anion Gap BUN Creatinine GFR Calculation Glucose Calculated Osmolal ity Lactate Calcium Total Bilirubin AST ALT Alkaline Phosphata se Creatine Kinase Troponin T Baselin e 70 ng/L H ng/L (0-15) Troponin T 120 Min [place] 107.1 ng/L H ng/L (0-15) [place] Troponin T 37.1 ABS# H* ABS# (0-10) NT-Pro-B Natriuret Pep Total Protein Albumin Globulin 08/02/21 07:15 WBC RBC Hgb Hct MCV MCH MCHC RDW Plt Count MPV Neut % (Auto) Lymph % (Auto) Coal % (Auto) Eos % (Auto) Baso % (Auto) Neut # (Auto) Lymph # (Auto) Coal # (Auto) Eos # (Auto) Baso # (Auto) Nucleated RBC % (a uto) Nucleated RBCs # PT INR APTT D-Dimer Specimen Type Sample Site ABG pH ABG pCO2 ABG pO2 ABG HCO3 ABG Base Excess Gee Test Hematocrit O2 Delivery Device O2 Liters/Min Software Engineering Analyst ID Sodium Potassium Chloride Carbon Dioxide Anion Gap BUN Creatinine GFR Calculation Glucose Calculated Osmolal ity Lactate 2.8 mmol/L H mmol /L (0.5-2.2) Calcium Total Bilirubin AST ALT Alkaline Phosphata se Creatine Kinase Troponin T Baselin e Troponin T 120 Min [place] Troponin T NT-Pro-B Natriuret Pep Total Protein Albumin Globulin Discharge Plan Discharge Patient Disposition: Admitted As Inpatient Clinical Impression: Non-ST elevation LA (NSTEMI), Hypokalemia, Atrial fibrillation, KEI (acute kidney injury), COPD (chronic obstructive pulmonary disease), Pneumonia Condition: Stable Prescriptions: No Action mecobalamin (vitamin B12) 1,000 mcg tablet,chewable 1,000 mcg PO DAILY RF: 0 metolazone 2.5 mg tablet 2.5 mg PO .Every other day 30 Days Qty: 30 RF: 2 Spiriva Respimat 1.25 mcg/actuation mist See Rx Instructions .ROUTE .COMPLEX Qty: 4 RF: 3 trazodone 50 mg Tablet 50 mg PO BEDTIME@2100 RF: 0 sodium chloride [Saline Mist] 0.65 % Aerosol,[place] 1 spray nasal PRN PRN (Reason: Dryness) Qty: 0 RF: 0 albuterol sulfate 1.25 mg/3 mL Solution For Nebulization 1.25 mg INHALATION Q4H PRN (Reason: Shortness Of Breath) 30 Days Qty: 30 RF: 3 amlodipine 5 mg Tablet 5 mg PO DAILY@0700 RF: 0 methimazole 5 mg tablet 2.5 mg PO DAILY@0700 RF: 0 diltiazem HCl [Cartia XT] 240 mg capsule,extended release 24hr 240 mg PO DAILY@0700 RF: 0 rosuvastatin 10 mg tablet 10 mg PO DAILY@0700 RF: 0 Daliresp 500 mcg tablet 500 mcg PO DAILY@0700 RF: 0 potassium chloride 20 mEq tablet extended release 20 meq PO BID@0700,2100 RF: 0 Januvia 50 mg tablet 100 mg PO DAILY@0700 RF: 0 Lantus Solostar U-100 Insulin 100 unit/mL (3 mL) insulin pen 20 unit SUBCUT BEDTIME RF: 0 furosemide 40 mg tablet 80 mg PO BID RF: 0 omeprazole 40 mg capsule,delayed release(DR/EC) 40 mg PO DAILY RF: 0 propranolol 40 mg Tablet 40 mg PO BID RF: 0 Jardiance 25 mg tablet 25 mg PO DAILY RF: 0 Entresto 24-26 mg Tablet 1 tab PO BID RF: 0 amiodarone 400 mg tablet 400 mg PO BID Qty: 14 RF: 0 prednisone 20 mg tablet 40 mg PO DAILY Qty: 7 RF: 0 Referrals: Nasreen Gomez PA [Primary Care Provider] - Sign Out Sign Out Data: Patient Sign Out occurred on 08/02/21 at 07:11. Patient's care was discussed, and care was transferred from to Nagi Olivarez DO. Coding Level of Care Code ED [employer] Guard for Chg Fwd Exam Detailed Documented by User: Nagi Olivarez DO 08/02/21 08:51 HPI - Chest Pain General: Chief Complaint: Chest Pain Stated Complaint: chest pain Time Seen by Provider: 08/02/21 03:54 PFSH ED PFSH: Medical History (Updated 08/02/21 @ 08:51 by Nagi Olivarez DO) Acute exacerbation of chronic obstructive airways disease Acute hypercapnic respiratory failure Atrial fibrillation -Currently normal sinus rhythm, heart rate controlled -continue Cardizem, digoxin -Has been off anticoagulation secondary to GI bleed while on Eliquis in May 2019 -Telemetry monitoring Atrial fibrillation with rapid ventricular response CAD (coronary artery disease) Chest pain CHF (congestive heart failure) Chronic respiratory failure with hypoxia Congestive heart failure -Clinically does not appear decompensated -has known history of chronic diastolic CHF, last echo shows ejection fraction of 60% with grade 1 diastolic dysfunction (04/2018) -continue Lasix, potassium COPD (chronic obstructive pulmonary disease) Cor pulmonale Diabetes -most recent A1c-5.8 -Insulin dependent at baseline -Accu-Cheks, scheduled insulin, ISS -Hypoglycemia precautions; hyperglycemic likely secondary to steroids Elevated troponin I level Heart attack Hypertension -hypertensive, continue to monitor vital signs -continue oral antihypertensives; increased dose of amlodipine Hypoxia Nicotine addiction DAYNE (obstructive sleep apnea) Pneumonia Surgical History H/O hernia repair Family History Mother Lung disease COPD Sister Cancer Social History Smoking and tobacco status: current every day smoker cigarettes Years cigarettes smoked: 47 [ Other cigarette details: Hx of 2PPD x 47 Years ] Quit status (tobacco): considering quitting Second hand smoke exposure: Yes Smoking risk assessment/counseling performed?: Yes Alcohol intake: current Alcohol intake frequency: holidays/special occasions only Desire information about alcohol rehabilitation?: No Counseling given: No Desire information about substance/drug rehabilitation?: No Counseling given: No Lives independently: Yes Household members: none Marital status: Single Current occupational status: 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 Patient hypokalemic has been getting potassium supplement. Addition that he is a mild acute kidney injury and a positive delta troponin of 37. He was in A. fib when he first arrives in normal sinus rhythm now CTA of the chest did not show any pulmonary emboli question of pneumonia. He has been mildly high both tensive. He has been gotten a liter of fluid ready for giving another 500 mL of normal saline now. Discussed Dr. Berry orders are written additionally have also consulted cardiology. Lab Data: Labs: Lab Results 08/02/21 08/02/21 08/02/21 03:57 03:57 03:57 WBC 16.0 10^3/uL H 10 ^3/uL (4.0-10.0) RBC 5.18 10^6/uL 10^6 /uL (4.1-5.3) Hgb 15.7 g/dL g/dL (11.7-16.6) Hct 46.1 % % (42.0-52.0) MCV 89.0 fl fl (80-94) MCH 30.3 pg pg (28.0-34.0) MCHC 34.1 g/dL g/dL (30.0-36.0) RDW 16.7 % H % (12.1-15.1) Plt Count 332 10^3/cmm 10^3 /cmm (130-400) MPV 9.6 fL fL (7.4-10.4) Neut % (Auto) 83.7 % % Lymph % (Auto) 8.5 % % Coal % (Auto) 6.4 % % Eos % (Auto) 0.6 % % Baso % (Auto) 0.2 % % Neut # (Auto) 13.37 10^3/uL H 1 0^3/uL (1.8-7.7) Lymph # (Auto) 1.4 10^3/uL 10^3/ uL (0.8-4.8) Coal # (Auto) 1.0 10^3/uL H 10^ 3/uL (0.2-0.9) Eos # (Auto) 0.1 10^3/uL 10^3/ uL (0.0-0.8) Baso # (Auto) 0.0 10^3/uL 10^3/ uL (0.0-0.1) Nucleated RBC % (a uto) 0 % % Nucleated RBCs # 0.0 /100WBC /100W BC PT 12.80 SECONDS SEC ONDS (12.1-14.9) INR 0.94 (0.8-1.2) APTT 26.2 SECONDS SECO NDS (23.9-36.7) D-Dimer 0.71 ug/mIFEU H u g/mIFEU (0-0.59) Specimen Type Sample Site ABG pH ABG pCO2 ABG pO2 ABG HCO3 ABG Base Excess Gee Test Hematocrit O2 Delivery Device O2 Liters/Min Software Engineering Analyst ID Sodium 130 mmol/L L mmol /L (136-145) Potassium 2.6 mmol/L L* mmo l/L (3.5-5.1) Chloride 78 mmol/L L mmol/ L (98-107) Carbon Dioxide 37 mmol/L H mmol/ L (22-29) Anion Gap 17.6 (5-19) BUN 39 mg/dL H mg/dL (8-23) Creatinine 1.6 mg/dL H mg/dL (0.7-1.2) GFR Calculation 43.9 mL/min L mL/ min (90-130) Glucose 79 mg/dL mg/dL (65-115) Calculated Osmolal ity 278 mOsm/kg L mOs m/kg (285-295) Lactate Calcium 8.4 mg/dL L mg/dL (8.5-10.5) Total Bilirubin 0.4 mg/dL mg/dL (0.15-1.2) AST 10 U/L U/L (0-40) ALT 12 U/L U/L (0-41) Alkaline Phosphata se 69 IU/L IU/L (40-130) Creatine Kinase 24 U/L L U/L (39-308) Troponin T Baselin e Troponin T 120 Min [place] Troponin T NT-Pro-B Natriuret Pep 581 pg/mL H pg/mL (0-125) Total Protein 5.7 g/dL L g/dL (6.6-8.7) Albumin 3.3 g/dL L g/dL (3.5-5.2) Globulin 2.4 g/dL g/dL (1.3-4.6) 08/02/21 08/02/21 08/02/21 03:57 05:30 07:15 WBC RBC Hgb Hct MCV MCH MCHC RDW Plt Count MPV Neut % (Auto) Lymph % (Auto) Coal % (Auto) Eos % (Auto) Baso % (Auto) Neut # (Auto) Lymph # (Auto) Coal # (Auto) Eos # (Auto) Baso # (Auto) Nucleated RBC % (a uto) Nucleated RBCs # PT INR APTT D-Dimer Specimen Type Arterial Sample Site Brachial, right ABG pH 7.41 (7.35-7.45) ABG pCO2 70.5 mmHg H* mmHg (35-45) ABG pO2 53.7 mmHg L mmHg (80.0-100.0) ABG HCO3 45.1 mmol/L H mmo l/L (22-26) ABG Base Excess 16.2 mmol/L H mmo l/L (-2.0-2.0) Gee Test Pos Hematocrit 47.9 % % (42-52) O2 Delivery Device Nc O2 Liters/Min 5.0 % % Software Engineering Analyst ID Tay Sodium Potassium Chloride Carbon Dioxide Anion Gap BUN Creatinine GFR Calculation Glucose Calculated Osmolal ity Lactate Calcium Total Bilirubin AST ALT Alkaline Phosphata se Creatine Kinase Troponin T Baselin e 70 ng/L H ng/L (0-15) Troponin T 120 Min [place] 107.1 ng/L H ng/L (0-15) [place] Troponin T 37.1 ABS# H* ABS# (0-10) NT-Pro-B Natriuret Pep Total Protein Albumin Globulin 08/02/21 07:15 WBC RBC Hgb Hct MCV MCH MCHC RDW Plt Count MPV Neut % (Auto) Lymph % (Auto) Coal % (Auto) Eos % (Auto) Baso % (Auto) Neut # (Auto) Lymph # (Auto) Coal # (Auto) Eos # (Auto) Baso # (Auto) Nucleated RBC % (a uto) Nucleated RBCs # PT INR APTT D-Dimer Specimen Type Sample Site ABG pH ABG pCO2 ABG pO2 ABG HCO3 ABG Base Excess Gee Test Hematocrit O2 Delivery Device O2 Liters/Min Software Engineering Analyst ID Sodium Potassium Chloride Carbon Dioxide Anion Gap BUN Creatinine GFR Calculation Glucose Calculated Osmolal ity Lactate 2.8 mmol/L H mmol /L (0.5-2.2) Calcium Total Bilirubin AST ALT Alkaline Phosphata se Creatine Kinase Troponin T Baselin e Troponin T 120 Min [place] Troponin T NT-Pro-B Natriuret Pep Total Protein Albumin Globulin Discharge Plan Discharge Patient Disposition: Admitted As Inpatient Clinical Impression: Non-ST elevation LA (NSTEMI), Hypokalemia, Atrial fibrillation, KEI (acute kidney injury), COPD (chronic obstructive pulmonary disease), Pneumonia Condition: Stable Prescriptions: No Action mecobalamin (vitamin B12) 1,000 mcg tablet,chewable 1,000 mcg PO DAILY RF: 0 metolazone 2.5 mg tablet 2.5 mg PO .Every other day 30 Days Qty: 30 RF: 2 Spiriva Respimat 1.25 mcg/actuation mist See Rx Instructions .ROUTE .COMPLEX Qty: 4 RF: 3 trazodone 50 mg Tablet 50 mg PO BEDTIME@2100 RF: 0 sodium chloride [Saline Mist] 0.65 % Aerosol,[place] 1 spray nasal PRN PRN (Reason: Dryness) Qty: 0 RF: 0 albuterol sulfate 1.25 mg/3 mL Solution For Nebulization 1.25 mg INHALATION Q4H PRN (Reason: Shortness Of Breath) 30 Days Qty: 30 RF: 3 amlodipine 5 mg Tablet 5 mg PO DAILY@0700 RF: 0 methimazole 5 mg tablet 2.5 mg PO DAILY@0700 RF: 0 diltiazem HCl [Cartia XT] 240 mg capsule,extended release 24hr 240 mg PO DAILY@0700 RF: 0 rosuvastatin 10 mg tablet 10 mg PO DAILY@0700 RF: 0 Daliresp 500 mcg tablet 500 mcg PO DAILY@0700 RF: 0 potassium chloride 20 mEq tablet extended release 20 meq PO BID@0700,2100 RF: 0 Januvia 50 mg tablet 100 mg PO DAILY@0700 RF: 0 Lantus Solostar U-100 Insulin 100 unit/mL (3 mL) insulin pen 20 unit SUBCUT BEDTIME RF: 0 furosemide 40 mg tablet 80 mg PO BID RF: 0 omeprazole 40 mg capsule,delayed release(DR/EC) 40 mg PO DAILY RF: 0 propranolol 40 mg Tablet 40 mg PO BID RF: 0 Jardiance 25 mg tablet 25 mg PO DAILY RF: 0 Entresto 24-26 mg Tablet 1 tab PO BID RF: 0 amiodarone 400 mg tablet 400 mg PO BID Qty: 14 RF: 0 prednisone 20 mg tablet 40 mg PO DAILY Qty: 7 RF: 0 Referrals: Nasreen Gomez PA [Primary Care Provider] - Sign Out Sign Out Data: Patient Sign Out occurred on 08/02/21 at 07:11. Patient's care was discussed, and care was transferred from to Nagi Olivarez DO. Coding Level of Care Code ED [employer] Cross[employer] Guard for g Fwd Exam Detailed
[2021-08-02 05:45] LABS: ABG PH Result 7.41 (7.35-7.45); Arterial Blood Gas Hematocrit 47.9 % (42-52); Base Excess ABG 16.2 mmol/L (-2.0-2.0); Blood Gas Allen Test Pos; Blood Gas Operator Identificat JB; Blood Gas Sample Site Brachial, right; Blood Gas Sample Type Arterial; HCO3 ABG 45.1 mmol/L (22-26); Oxygen Device NC; PO2 ABG 53.7 mmHg (80.0-100.0)
[2021-08-02 05:46] LABS: ABG PCO2 70.5 mmHg (35-45)
[2021-08-02] MEDS: potassium chloride ER 20 mEq Tablet 40 MEQ PO (06:02)
[2021-08-02] MEDS: potassium chloride premix 100 ML 50 MEQ IV (06:03)
[2021-08-02 06:16] LABS: INR 0.94 (0.8-1.2)
[2021-08-02 06:17] LABS: Partial Thromboplastin Time 26.2 SECONDS (23.9-36.7)
[2021-08-02 06:19] LABS: D Dimer 0.71 ug/mIFEU (0-0.59)
--- NOTE | 2021-08-02 06:28 | CTR_ITS ---
PROCEDURE INFORMATION: Exam: CTA Chest With Contrast Exam date and time: 08/02/2021 6:28 AM Age: 65 years old Clinical indication: Pain; Chest pressure; Additional info: Chest pain TECHNIQUE: Imaging protocol: Computed tomographic angiography of the chest with contrast. 3D rendering (Not supervised by radiologist): MIP and/or 3D reconstructed images were created by the technologist. Radiation optimization: All CT scans at this facility use at least one of these dose optimization techniques: automated exposure control; mA and/or kV adjustment per patient size (includes targeted exams where dose is matched to clinical indication); or iterative reconstruction. Contrast material: VISI 320; Contrast volume: 73 ml; Contrast route: INTRAVENOUS (IV); COMPARISON: CT angio chest PE protcl [id number] 01/15/2021 3:07 PM RADIATION DOSE METRICS: Total DLP (mGy-cm): 539.12 FINDINGS: Pulmonary arteries: Normal. No pulmonary emboli. Aorta: Unremarkable. No aortic aneurysm. No aortic dissection. Lungs: Centrilobular and paraseptal emphysema is present. There is streaky airspace opacities in the lower lungs, which may represent atelectasis or pneumonia in the adequate clinical setting. Pleural spaces: Unremarkable. No pneumothorax. No pleural effusion. Heart: Normal heart size. Coronary atherosclerotic calcifications seen. No pericardial effusion. Lymph nodes: Unremarkable. No enlarged lymph nodes. Bones/joints: Degenerative changes of the spine seen. Chronic mild loss of height of T8 and degenerative changes seen. Soft tissues: Unremarkable. CT/CT angio chest PE protcl [id number] IMPRESSION: 1. No pulmonary embolus. 2. Streaky bibasilar atelectasis. Pneumonia should be excluded clinically. 3. Centrilobular and paraseptal emphysema. Radiation Dose CTDIVOL = (mGy): DLP = 539.12 (mGy-cm)
[2021-08-02] MEDS: iodixanol 320 mg/mL 100mL Btl IV (07:27)
[2021-08-02 07:51] LABS: Lactate (Lactic Acid level) 2.8 mmol/L (0.5-2.2)
[2021-08-02 07:54] LABS: Troponin 5 2HR 107.1 ng/L (0-15); Troponin 5 2HR Delta 37.1 ABS# (0-10)
[2021-08-02] MEDS: fentaNYL 50 mcg/mL INJ 2mL IVP (08:24)
[2021-08-02] MEDS: piperacillin-tazobactam 4.5 GM in sodium chloride 0.9% (plus) 50 ML IV (08:34)
[2021-08-02 09:04] LABS: Magnesium 1.7 mg/dL (1.7-2.3)
[2021-08-02] MEDS: sodium chloride 0.9% 500 ML IV (09:21)
[2021-08-02] MEDS: enoxaparin 100 mg/mL Syringe 90 MG SUBCUT ×2 (09:25→20:38)
--- NOTE | 2021-08-02 10:00 | P.HP_ITS ---
Providers/Chief Complaint Primary Care Provider: Nasreen Gomez Chief Complaint: chest pain History of Present Illness Nagi Cuellar is a 65 year old male who presented to the hospital with an episode of chest discomfort, described as a left side ache without radiation, occurring around 2 AM. He reports he was up and around and had a syncopal episode shortly after. He woke up on the floor, and some urine. Girlfriend who witnessed the episode reported no obvious seizure activity. He reported when he awoke, his chest discomfort was gone. He reports no chest discomfort currently. He states his breathing is about the same as normal. No nausea. He did feel dizzy when he had the chest discomfort. He was recently hospitalized with chest pain and A. fib with RVR, and started on amiodarone. In the emergency department it appears he received some pain medicine, some Zosyn, potassium supplementation, and rehydration. A CTA was performed which demonstrated no pulmonary embolism, questionable bibasilar pneumonia. He has been vaccinated for Covid, with his second immunization about a month ago with Moderna. Review of Systems General: Reports: 10 or more systems reviewed and unremarkable except in HPI and below Const: Denies: fever(s) or chills Eyes: Denies: change in vision ENMT: Denies: throat pain Card: Reports: chest pain Resp: Reports: dyspnea (Chronic, no change currently) and non-productive cough (Chronic, no change currently) GI: Denies: abdominal pain, hematochezia or melena : Denies: flank pain Musc: Denies: neck pain Skin/Breast: Denies: rash Neuro: Denies: headache(s) Psych: Denies: anxiety or depression Endo: Denies: polyuria Dov/Lymph: Denies: easy bruising All/Imm: Denies: urticaria Medications/Allergies Home Medications Medication Instructions Recorded Confirmed Last Taken Type trazodone 50 mg PO BEDTIME@2100 11/20/19 07/23/21 07/17/21 History albuterol sulfate 1.25 mg INHALATION Q4H PRN 30 Days 11/22/19 07/23/21 01/14/21 Rx #30 appful sodium chloride [Saline Mist] 1 spray NASAL PRN PRN #0 ml 11/22/19 07/23/21 12/21/19 Rx Daliresp 500 mcg PO DAILY@0700 01/15/21 07/23/21 07/17/21 History amlodipine 5 mg PO DAILY@0700 01/15/21 07/23/21 07/17/21 History diltiazem HCl [Cartia XT] 240 mg PO DAILY@0700 01/15/21 07/23/21 07/17/21 History methimazole 2.5 mg PO DAILY@0700 01/15/21 07/23/21 07/17/21 History potassium chloride 20 meq PO BID@0700,2100 01/15/21 07/23/21 07/17/21 History rosuvastatin 10 mg PO DAILY@0700 01/15/21 07/23/21 07/17/21 History metolazone 2.5 mg tablet 2.5 mg PO .Every other day 30 Days 05/17/21 07/23/21 07/17/21 Rx #30 tab tiotropium bromide 1.25 See Rx Instructions .ROUTE 07/16/21 07/23/21 07/17/21 Rx mcg/actuation mist for inhalation .COMPLEX #4 milliliter Entresto 1 tab PO BID 07/18/21 07/23/21 07/17/21 History Jardiance 25 mg PO DAILY 07/18/21 07/23/21 07/17/21 History furosemide 80 mg PO BID 07/18/21 07/23/21 07/17/21 History omeprazole 40 mg PO DAILY 07/18/21 07/23/21 07/17/21 History propranolol 40 mg PO BID 07/18/21 07/23/21 07/17/21 History amiodarone 400 mg PO BID #14 tab 07/20/21 07/23/21 Unknown Rx prednisone 40 mg PO DAILY #7 tab 07/20/21 07/23/21 Unknown Rx insulin glargine 100 unit/mL (3 20 unit SUBCUT BEDTIME ml 07/23/21 07/23/21 Unknown History mL) subcutaneous pen mecobalamin (vitamin B12) 1,000 1,000 mcg PO DAILY 07/23/21 07/23/21 Unknown History mcg chewable tablet sitagliptin 50 mg tablet 100 mg PO DAILY@0700 tab 07/23/21 07/23/21 Unknown History Allergies Allergy/AdvReac Type Severity Reaction Status Date / Time No Known Allergies Allergy Verified 07/23/21 09:04 PFSH Acute PFSH: Medical History (Updated 08/02/21 @ 10:48 by Mikie Berry MD) Acute exacerbation of chronic obstructive airways disease Acute hypercapnic respiratory failure Atrial fibrillation Atrial fibrillation with rapid ventricular response CAD (coronary artery disease) Chest pain CHF (congestive heart failure) Chronic respiratory failure with hypoxia Congestive heart failure COPD (chronic obstructive pulmonary disease) Cor pulmonale Diabetes Elevated troponin I level Heart attack Hypertension Hypoxia Nicotine addiction DAYNE (obstructive sleep apnea) Pneumonia Surgical History H/O hernia repair Family History Mother Lung disease COPD Sister Cancer Social History Smoking and tobacco status: current every day smoker cigarettes Years cigarettes smoked: 47 [ Other cigarette details: Hx of 2PPD x 47 Years ] Quit status (tobacco): considering quitting Second hand smoke exposure: Yes Smoking risk assessment/counseling performed?: Yes Alcohol intake: current Alcohol intake frequency: holidays/special occasions only Desire information about alcohol rehabilitation?: No Counseling given: No Desire information about substance/drug rehabilitation?: No Counseling given: No Lives independently: Yes Household members: none Marital status: Single 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 HEENT: Pupils equally round. Oropharynx clear. Neck is supple no lymphadenopathy Cardiovascular regular rate and rhythm, no murmur. Lungs diminished breath sounds bilaterally but no wheezes or crackles Abdomen is soft with positive bowel sounds. Supraumbilical hernia, reducible is noted. No obvious organomegaly. exam is deferred Extremities trace bilateral edema. Skin no rash Neuro no focal deficits Data : 08/02/21 03:57 08/02/21 03:57 Micro: Microbiology 08/02/21 07:15 Blood Culture - Preliminary Blood SPECIMEN COLLECTED Other data: D-dimer 0.71 ABG 7.4 /54 PO2 on 5 L Lactate 2.8 Calcium 8.4 CK 24 Troponin baseline 70 with repeat of 107 with a delta of 37 Initial EKG demonstrated atrial fibrillation with rapid ventricular rate, no nspecific ST-T wave depression V4 through 6. Poor R wave progression is noted with Q waves anterior and septally. Some ST depression is also noted in inferior leads. Incomplete right bundle branch block noted. CTA demonstrates no pulmonary embolism, streaky bibasilar atelectasis with possible pneumonia, emphysema A&P Assessment and plan (1) Non-ST elevation CT (NSTEMI): Significant delta troponin. This may herald a non-ST elevation myocardial infarction. However, it is also noted the patient was in atrial fibrillation with rapid ventricular rate on arrival and has spontaneously converted to sinus rhythm. This could have triggered the troponin elevation considering his underlying heart disease. Cardiology consultation No beta-sweetie secondary to hypotension Aspirin, anticoagulation, statin Check limited echo secondary to chest pain, hypotension. Had recent echocardiogram 10 days ago. Status: Acute (2) KEI (acute kidney injury): Creatinine elevated on admission. Hold diuretics Bladder scan Secondary to hypotension, rehydrate Avoid renal toxic medication CK checked and not elevated. Status: Acute (3) Atrial fibrillation: Presented with atrial fibrillation with rapid ventricular rate. Continue amiodarone 200 mg twice daily Cardiology consultation Status: Acute (4) Hypokalemia: Supplemented in the emergency department Check magnesium level Status: Acute (5) Hypotension: Hold antihypertensives and diuretics CTA demonstrates no pulmonary embolism Continue to follow closely. Blood cultures Check urinalysis Check cortisol leval Risk of secondary adrenal insufficiency with multiple steroid courses since early June. Hydrocortisone to be started. Status: Acute (6) Pneumonia: Possible pneumonia on CTA. Continue Zosyn. Sputum culture. Check MRSA PCR. Check procalcitonin level Status: Acute (7) Elevated d-dimer: CTA negative for pulmonary embolism Status: Acute Additional A&P Information CHF, EF preserved. No evidence of acute exacerbation. Last echocardiogram demonstrated an EF of 65 to 70% and grade 2 diastolic dysfunction. Coronary artery disease. Elevated troponin, see above COPD, no evidence of current exacerbation Type 2 diabetes. Sliding scale insulin Tobacco dependency. Encourage cessation Hyperthyroidism. Check thyroid studies Multiple other medical problems as outlined in past medical history Lovenox will suffice for DVT prophylaxis Full code Attestations Medical Necessity Statement*: Will need greater than 2 midnight stay for evaluation and treatment of atrial fibrillation, syncope, acute kidney injury, hypotension and possible adrenal insufficiency, pneumonia, non-ST elevation myocardial infarction. Time Spent in Patient Care: Greater than 35 minutes Critical Care Time: The high probability of a clinically significant, sudden or life threatening deterioration of the patient's [pulmonary, renal, infectious disease, cardiac] system(s) required my full and direct attention, intervention and personal management. The critical care time is as shown. 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
--- NOTE | 2021-08-02 10:15 | ECG_ITS ---
[facility] Test Date: 2021-08-02 Pat Name: Nagi Cuellar Department: Room: Gender: Male [employer]: : 1955 Requested By: Rudy Bell Order Number: [id number] Dominguez MD: Brian Davis M.D. Measurements Intervals Rheems Rate: 79 P: 52 SC: 205 QRS: -2 QRSD: 114 T: 65 QT: 417 QTc: 480 Interpretive Statements SINUS RHYTHM POSSIBLE LEFT ATRIAL ENLARGEMENT [-0.1mV P-WAVE IN V1/V2] INCOMPLETE RIGHT BUNDLE BRANCH BLOCK [90+ ms QRS DURATION, TERMINAL R IN V1/V2, 40+ ms S IN I/aVL/V4/V5/V6] MINIMAL ST DEPRESSION [0.025+ mV ST DEPRESSION] Compared to ECG 08/02/2021 03:47:02 ST (T wave) deviation now present Atrial fibrillation no longer present Aberrant conduction of supraventricular beat(s) no longer present Ventricular premature complex(es) no longer present Indeterminate axis no longer present Myocardial infarct finding no longer present Electronically Signed On 08-02-2021 22:22:37 CDT by Brian Davis M.D. [email or web address]
[2021-08-02 10:50] LABS: Troponin 5 6HR 140.8 ng/L (0-15); Troponin 5 6HR Delta 70.8 ng/L (0-12)
[2021-08-02 11:43] LABS: Free T4 Free Thyroxine 1.82 ng/dL (0.82-1.77); T3 Free 2.3 PG/ML (2.0-4.4); Thyroid Stimulating Hormone 2.73 uIU/mL (0.27-4.20)
[2021-08-02] MEDS: aspirin 325 mg EC Tablet PO (11:43)
[2021-08-02] MEDS: hydrocortisone 100 mg/2 mL SDV IVP (11:43)
--- NOTE | 2021-08-02 11:43 | PM.CONSULT ---
Providers/Reason For Consult Consulting Physician/Specialty*: Cardiology Reason for Consult*: Non-ST elevation NC Attending Physician: Mikie Berry MD Primary Care Provider: Nasreen Gomez History of Present Illness History of Present Illness Nagi Cuellar is a 65 year old male past medical history significant for coronary artery disease status post stents few years ago, history of continuous tobacco abuse, COPD, atrial fibrillation with rapid ventricle response, diastolic dysfunction who presented with witnessed syncope for nearly 10 minutes along with chest pain. According to the patient he got up in the middle of the night to go to washroom noticed severe chest pain across the left side of the chest which she describes knocking the wind out of him next thing he noticed he was brought in here by EMS. His girlfriend who witnessed him falling down call 911 which transported him to the emergency room. He was noted to be in A. fib with rapid ventricle response hypokalemic and in acute renal failure. Cardiac markers fifth generation troponin peaked at 140. He was ruled out for pulmonary embolism with CTA using contrast. He has been admitted to ICU since his admission he is in sinus rhythm and not complaining of chest pain. Currently he is on amiodarone and given enoxaparin. Review of Systems General: Reports: 10 or more systems reviewed and unremarkable except in HPI and below Const: Reports: diaphoresis; Denies: fever(s) or chills Eyes: Denies: change in vision or photophobia ENMT: Denies: throat pain or enlarged tonsils Card: Reports: chest pain, palpitations and syncope Resp: Reports: dyspnea (Chronic, no change currently) and non-productive cough (Chronic, no change currently) GI: Reports: nausea; Denies: abdominal pain, vomiting, hematochezia or melena : Denies: flank pain Musc: Denies: neck pain or joint warmth Skin/Breast: Denies: rash Neuro: Denies: headache(s) Psych: Denies: anxiety or depression Endo: Denies: polyuria Dov/Lymph: Denies: easy bruising All/Imm: Denies: urticaria Meds/Allergies Home Medications and Allergies Home Medications Medication Instructions Recorded Confirmed Last Taken Type trazodone 50 mg PO BEDTIME 11/20/19 08/18/21 07/17/21 History Daliresp 500 mcg PO QAM 03/10/2608/18/21 07/17/21 History methimazole 2.5 mg PO QAM 01/15/21 08/18/21 07/17/21 History rosuvastatin 10 mg PO DAILY 01/15/21 08/18/21 07/17/21 History Jardiance 25 mg PO QAM 07/18/21 08/18/21 07/17/21 History omeprazole 40 mg PO QAM 07/18/21 08/18/21 07/17/21 History sitagliptin 50 mg tablet 50 mg PO QAM tab 07/23/21 08/18/21 Unknown History Farxiga 10 mg PO QAM 08/02/21 08/18/21 Unknown History Vitamin B12 Gummies 1 - 2 tab PO DAILY 08/02/21 08/18/21 Unknown History formoterol fumarate [Perforomist] 2 ml INHALATION BID 08/02/21 08/18/21 Unknown History Triple Antibiotic 1 applic TOPICAL DAILY #15 g 08/05/21 08/18/21 Unknown Rx amiodarone 200 mg tablet 200 mg PO DAILY tab 08/10/21 08/18/21 Unknown History aspirin 81 mg PO QAM 08/12/21 08/18/21 Unknown History potassium chloride 20 meq PO BID 08/12/21 08/18/21 Unknown History benzonatate 100 mg PO TID PRN #14 cap 08/17/21 08/18/21 Unknown Rx budesonide [Pulmicort] 0.5 mg INHALATION BID #60 ml 08/17/21 08/18/21 Unknown Rx furosemide 40 mg PO BID #0 tab 08/17/21 08/18/21 Unknown Rx Lantus Solostar U-100 Insulin 10 unit SUBCUT BEDTIME #0 ml 08/23/21 08/18/21 08/11/21 Rx acetazolamide 125 mg PO EVERY OTHER DAY 30 Days 08/23/21 Unknown Rx #8 tab ipratropium-albuterol [Combivent 1 puff INHALATION Q6H #4 g 08/23/21 Unknown Rx Respimat] metoprolol tartrate 25 mg PO BID #0 tab 08/23/21 08/18/21 Unknown Rx Allergies Allergy/AdvReac Type Severity Reaction Status Date / Time No Known Allergies Allergy Verified 08/12/21 10:17 PFSH Acute PFSH: Medical History (Updated 08/24/21 @ 00:01 by ) Acute exacerbation of chronic obstructive airways disease Acute hypercapnic respiratory failure Atrial fibrillation Atrial fibrillation with rapid ventricular response CAD (coronary artery disease) Chest pain CHF (congestive heart failure) Chronic kidney disease, stage II (mild) Chronic respiratory failure with hypoxia Congestive heart failure COPD (chronic obstructive pulmonary disease) Cor pulmonale Diabetes Elevated troponin I level Heart attack Hypertension Hypoxia Moderate aortic stenosis Nicotine addiction DAYNE (obstructive sleep apnea) Pneumonia Surgical History H/O hernia repair Family History Mother Lung disease COPD Sister Cancer Social History Quit status (tobacco): considering quitting Second hand smoke exposure: Yes Smoking risk assessment/counseling performed?: Yes Alcohol intake: current Alcohol intake frequency: holidays/special occasions only Desire information about alcohol rehabilitation?: No Counseling given: No Desire information about substance/drug rehabilitation?: No Counseling given: No Lives independently: Yes Household members: none Marital status: Single Current occupational status: disabled and 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 NECK: No jugular vein distension. HEENT: No cyanosis. No icterus. No pallor. HEART: Regular S1 and S2. No murmur, rub or gallop. LUNGS: Clear to auscultate bilaterally. ABDOMEN: Soft, nontender and nondistended. Positive bowel sounds. No guarding, rebound or tenderness. CENTRAL NERVOUS SYSTEM: Grossly nonfocal. EXTREMITIES: Lower extremities without edema bilaterally. Data Micro: Micro: Microbiology 08/02/21 10:07 Blood Culture - Pr eliminary Blood SPECIMEN [facility] [place] 08/02/21 07:15 Blood Culture - Pr eliminary Blood SPECIMEN [facility] [place] A&P Assessment and plan (1) Non-ST elevation NC (NSTEMI): Patient has had chest pain followed by syncope and high cardiac markers may suggest non-ST elevation NC/acute coronary syndrome. Patient has extensive history of coronary artery disease. At this point he may require further assessment with left heart cath however due to acute renal failure we would like to improve his renal function first. Once back to baseline will proceed with left heart cath which may take a couple of days. I have detailed discussion with the patient have explained them all risk benefit and already for the procedure he would like to proceed with it. For now we will add Plavix to the regimen.. Status: Resolved (2) KEI (acute kidney injury): Advise IV fluid. Continue 100 mL/h Status: Resolved (3) Atrial fibrillation: Patient is sinus rhythm continue p.o. amiodarone Status: Acute Qualifiers: Atrial fibrillation type: paroxysmal Qualified Code(s): I48.0 - Paroxysmal atrial fibrillation (4) Hypotension: Could be multifactorial including sepsis and diuresis. 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
[2021-08-02 11:44] LABS: Cortisol Random 19.25 ug/dL (2.47-19.5); Procalcitonin 0.15 ng/mL (0-0.5)
[2021-08-02 11:46] LABS: Bacteria Urine TRACE /hpf; Bilirubin Urine Neg (Negative); Blood Urine Neg (Negative); Glucose Urine UA Norm (Normal); Ketones Urine Negative (Negative); Leukocyte Esterase Urine Negative (Negative); Nitrate Urine Negative (Negative); Protein Urine 1+ (Negative); RBC Urine RARE /hpf (0-2); Squamous Epithelial Cell Urine 0-4 /hpf (0-5); Urine Appearance Clear (CLEAR); Urine Color Yellow (Yellow); Urobilinogen Urine Norm (Negative); WBC Urine RARE /hpf (0-5); pH Urine 5 (5-7)
--- NOTE | 2021-08-02 12:03 | PC.PHAR ---
PT STATES HIS GIRLFRIEND KAYLYN SETS UP HIS MEDICATION-KAYLYN STATES THE PT TAKES LASIX 100MG BID EXT MED HISTORY SHOWS LAST FILLED ON 05/17/21 90D/S FOR 80MG BID-KAYLYN STATES THE PT TAKES 50MG DAILY OF JANUVIA FILLED ON 07/10/21 ANOTHER RX WRITTEN ON 07/23/21 FOR JANUVIA 100MG DAILY-KAYLYN STATES THE PT IS STILL TAKING 20MEQ PO TID EXT MED HISTORY SHOWS LAST FILLED ON 11/09/20 90D/S-[facility]Y FROM [facility] OFFICE STATES THE PT SHOULD BE TAKING FARXIGA,JANUVIA AND JANUVIA-NOTES ARE MADE IN THE PHARMACY COMMENTS
--- NOTE | 2021-08-02 13:09 | USCV_ITS ---
Nagi Cuellar Age: 65 Gender: M : 1955 Exam Date: 08/02/2021 14:09 Ordering Phys: Mikie Berry MD Technologist: AMBER Exam Location: [facility] [place] Indication: NE, HYPOTENSION BP: 82 / 48 HR: 71 Rhythm: Sinus Technical Quality: Adequate MEASUREMENTS (Male / Female) Normal Values 2D ECHO LV Diastolic Diameter PLAX 3.8 cm 4.2 - 5.9 / 3.9 - 5.3 cm LV Systolic Diameter PLAX 2.2 cm IVS Diastolic Thickness 2.0 cm 0.6 - 1.0 / 0.6 - 0.9 cm IVS Systolic Thickness 2.3 cm LVPW Diastolic Thickness 2.2 cm 0.6 - 1.0 / 0.6 - 0.9 cm LVPW Systolic Thickness 1.6 cm LVOT Diameter 2.0 cm LV Ejection Fraction 2D Teich 73.9 % LV Ejection Fraction MOD 2C 61.0 % LV Ejection Fraction 2C AL 63.2 % LA Diameter 2.8 cm Aorta at Sinotubular Diameter 3.0 cm FINDINGS Left Ventricle Normal left ventricular cavity size. Moderate left ventricular hypertrophy. Normal left ventricular systolic function. Left ventricular ejection fraction is estimated at 65 %. Septal bounce could be secondary to interventricular conduction delay Right Ventricle Right Atrium Left Atrium Mitral Valve Aortic Valve Severe aortic valve calcification. Moderate aortic valve stenosis Tricuspid Valve Pulmonic Valve Pericardium Aorta CONCLUSIONS Please note that this is a limited exam to assess LV function. No Doppler data was measured during the study therefore the scope of the study is limited 1-Normal left ventricular cavity size. Moderate left ventricular hypertrophy. Normal left ventricular systolic function. Left ventricular ejection fraction is estimated at 65 %. Septal bounce could be secondary to interventricular conduction delay. 2-Severe aortic valve calcification. Moderate aortic valve stenosis 3-There is no pericardial effusion. 4-Due to limited study it cannot be compared with the prior echocardiogram. Erick Henderson MD (Electronically Signed) Final Date: 02 August 2021 21:08 S
[2021-08-02] MEDS: sodium chloride 0.9% 250 ML IV (14:06)
[2021-08-02] MEDS: piperacillin-tazobactam 3.375 GM in sodium chloride 0.9% (plus) 50 ML IV ×2 (14:34→22:52)
[2021-08-02] MEDS: D5-NS 0.45% + KCL 20 mEq 20 MEQ/1,000 ML BAG 100 MEQ IV (14:35)
[2021-08-02 15:00] LABS: Glucose Point of Care 126 mg/dL (70-110)
[2021-08-02] MEDS: ipratropium-albuterol 3 mL Neb INHALATION ×3 (16:00→22:48)
[2021-08-02 17:34] LABS: Glucose Point of Care 277 mg/dL (70-110)
[2021-08-02] MEDS: amiodarone 200 mg Tablet PO (17:43)
[2021-08-02] MEDS: hydrocortisone 100 mg/2 mL SDV 50 MG IVP (17:46)
--- NOTE | 2021-08-02 17:51 | PC.NURSE ---
1300 Pt arrived to ICU 5, transferred to ICU bed per staff. C/o some back pain. O2@5Lnc in use. No c/o SOB. BP low, 250ns bolus ordered and given, levophed started per orders. B AC PIV's. Pt bladder scanned per orders, 150ml urine noted. Pt denies any issues with urination. Urinal given to pt. [id number], makes all needs known. Will monitor. Shift Note Frequent safety and comfort rounds continue. Orders and/or nursing care completed as indicated. Patient monitored for response to intervention and treatment(s). Education provided includes treatment plan, medication regimen and oxygen safety. Pt verbalizes understanding. Pt sitting up at this time, eating dinner. Denies any pain or SOB at this time. Will continue to monitor.
--- NOTE | 2021-08-02 20:35 | PC.NURSE ---
Hygiene When asked, patient refused hygiene offered (bed bath, oral care, bony care) and stated that he would like to have these done in the morning.
[2021-08-02] MEDS: clopidogrel 300 mg Tablet PO (20:39)
[2021-08-02] MEDS: sodium chloride 0.9% 1,000 ML 75 ML IV (20:40)
[2021-08-02 21:05] LABS: Glucose Point of Care 286 mg/dL (70-110)
[2021-08-02] MEDS: trazodone 50 mg Tablet PO (21:08)
[2021-08-03] VITALS (38 sets, daily range): BP systolic 99–132; BP diastolic 53–98; PULSE 66–101; RESP 13–24; TEMP 36.1–37.1; O2SAT 90–99; BMI 35.1
[2021-08-03] MEDS: hydrocortisone 100 mg/2 mL SDV 50 MG IVP (02:05)
--- NOTE | 2021-08-03 04:40 | PC.NURSE ---
Skin Tear Dressing Dressing changed on skin tear on left forearm at 0405. At 0440, sanguinous drainage was seeping out of dressing. Dressing removed, wound cleaned with normal saline, and dressing reapplied.
[2021-08-03 04:45] LABS: Basophils % 0.1 %; Eosinophils % 0.2 %; Hematocrit 41.8 % (42.0-52.0); Hemoglobin 13.5 g/dL (11.7-16.6); Lymphocytes # 0.3 10^3/uL (0.8-4.8); Lymphocytes % 3.4 %; Mean Corpuscular HGB Conc 32.3 g/dL (30.0-36.0); Mean Corpuscular Hemoglobin 29.6 pg (28.0-34.0); Mean Corpuscular Volume 91.7 fl (80-94); Mean Platelet Volume 9.7 fL (7.4-10.4); Monocytes # 0.5 10^3/uL (0.2-0.9); Monocytes % 5.9 %; Neutrophils # 7.81 10^3/uL (1.8-7.7); Neutrophils % 89.8 %; Nucleated Red Blood Cells % 0 %; Platelet Count 235 10^3/cmm (130-400); Red Blood Count 4.56 10^6/uL (4.1-5.3); White Blood Count 8.7 10^3/uL (4.0-10.0)
[2021-08-03 05:17] LABS: Alanine Aminotransferase 10 U/L (0-41); Albumin Level 3.2 g/dL (3.5-5.2); Alkaline Phosphatase 57 IU/L (40-130); Anion Gap 13.8 (5-19); Aspartate Amino Transferase 11 U/L (0-40); Blood Urea Nitrogen 44 mg/dL (8-23); Calcium 8.3 mg/dL (8.5-10.5); Carbon Dioxide 36 mmol/L (22-29); Chloride 85 mmol/L (98-107); Globulin 2.4 g/dL (1.3-4.6); Glomerular Filtration Rate 40.9 mL/min (90-130); Glucose 147 mg/dL (65-115); Magnesium 2.3 mg/dL (1.7-2.3); Osmolality Calculated 286 mOsm/kg (285-295); Potassium 3.8 mmol/L (3.5-5.1); Sodium 131 mmol/L (136-145); Total Bilirubin 0.3 mg/dL (0.15-1.2); Total Protein 5.6 g/dL (6.6-8.7)
[2021-08-03] MEDS: atorvastatin 40 mg Tablet PO (06:26)
[2021-08-03] MEDS: piperacillin-tazobactam 3.375 GM in sodium chloride 0.9% (plus) 50 ML IV ×3 (06:26→23:33)
[2021-08-03] MEDS: morphine 4 mg/mL SDV 1 mL 2 MG IVP ×2 (06:48→19:51)
[2021-08-03] MEDS: methIMAzole 5 MG Tablet 2.5 MG PO (07:01)
[2021-08-03] MEDS: roflumilast 500 mcg Tablet PO (07:01)
[2021-08-03 07:05] LABS: Glucose Point of Care 171 mg/dL (70-110)
--- NOTE | 2021-08-03 07:20 | PC.NURSE ---
Shift Note Frequent safety and comfort rounds continue. Orders and/or nursing care completed as indicated. Patient monitored for response to intervention and treatment(s). Education provided includes medication information regarding morphine/Levophed/plavix, oxygen requirements over time, and dressing changes for his skin tear. Patient verbalized understanding. Patient will be monitored throughout the day.
[2021-08-03] MEDS: ipratropium-albuterol 3 mL Neb INHALATION ×4 (08:00→20:59)
[2021-08-03] MEDS: amiodarone 200 mg Tablet PO ×2 (08:13→18:14)
[2021-08-03] MEDS: pantoprazole DR 40 mg Tablet PO (08:13)
[2021-08-03] MEDS: metoprolol tartrate 25 mg Tablet 12.5 MG PO ×2 (08:54→19:51)
[2021-08-03] MEDS: predniSONE 20 mg Tablet 40 MG PO (08:55)
--- NOTE | 2021-08-03 09:19 | PC.NURSE ---
dressing to L arm changed twice d/t bleeding. MD aware and orders for blood thinners changed. Pt denies any pain at this time. AAOx4, makes all needs known. O2 decreased by MD to 5L. Tolerating well. R AC IV became dislodged. IV removed intact, cleaned the area and dressed it. All fluids compatible and placed to L AC PIV. VSS. Will monitor.
[2021-08-03] MEDS: sodium chloride 0.9% 1,000 ML 75 ML IV ×2 (09:26→19:52)
--- NOTE | 2021-08-03 10:08 | P.PN_ITS ---
Subjective Subjective: Interval history: Nagi reports he feels pretty good this morning. No chest pain. Not short of breath. Concerned about being on so many blood thinners. Reports significant history of GI bleed in the past requiring transfer to [place]. Medications: Reviewed: Yes Vitals/I&O/Wt Last Vital Signs Temp 98.7 F 08/03/21 08:00 Pulse 101 H 08/03/21 08:30 Resp 16 08/03/21 06:48 BP 128/73 08/03/21 08:30 Pulse Ox 91 08/03/21 08:30 08/02/21 08/03/21 08/03/21 22:59 06:59 14:59 Intake Total 926.165 / 2878.165 591.373 / 3469.538 1437.5 / 1437.5 Output Total 500 / 500 1450 / 1950 550 / 550 Balance 426.165 / 2378.165 -858.627 / 1519.538 887.5 / 887.5 Weight last 48 hrs Weight 95.708 kg Weight 90.718 kg Physical Exam Narrative: EXAM NARRATIVE: General exam no distress Neck is supple no lymphadenopathy Cardiovascular regular rate and rhythm, no murmur. Lungs diminished breath sounds bilaterally but no wheezes or crackles Abdomen is soft with positive bowel sounds. Extremities trace bilateral edema. Data : 08/03/21 04:14 08/03/21 04:14 Micro: Microbiology 08/02/21 07:15 Blood Culture - Preliminary Blood NEGATIVE TO DATE 08/02/21 10:07 Blood Culture - Preliminary Blood SPECIMEN COLLECTED A&P Assessment and plan (1) Non-ST elevation VT (NSTEMI): Significant delta troponin. This may herald a non-ST elevation myocardial infarction. However, it is also noted the patient was in atrial fibrillation with rapid ventricular rate on arrival and has spontaneously converted to sinus rhythm. This could have triggered the troponin elevation considering his underlying heart disease. Cardiology consultation appreciated With blood pressure improved add low-dose beta-sweetie Cardiology has added Plavix. Change aspirin to low-dose Continue statin Secondary to significant history of GI bleed on Eliquis, and oozing from his abrasion left upper extremity sustained in fall from at home we will discontinue high dose Lovenox and change to heparin subcu Repeat limited echocardiogram demonstrates preserved EF Status: Acute (2) KEI (acute kidney injury): Creatinine elevated on admission. Hold diuretics Bladder scan showed no obvious bladder outlet obstruction Avoid renal toxic medication CK checked and not elevated. Continue hydration Status: Acute (3) Atrial fibrillation: Presented with atrial fibrillation with rapid ventricular rate. Continue amiodarone 200 mg twice daily Add metoprolol low-dose Cardiology consultation appreciated Status: Acute Qualifiers: Atrial fibrillation type: paroxysmal Qualified Code(s): I48.0 - Paroxysmal atrial fibrillation (4) Hypokalemia: Supplemented in the emergency department Check magnesium level Status: Acute (5) Hypotension: Hold antihypertensives and diuretics CTA demonstrates no pulmonary embolism Continue to follow closely. Blood cultures negative to date Urinalysis negative for infection. Cortisol level not diminished. Risk of secondary adrenal insufficiency with multiple steroid courses since early June hydrocortisone was started on admission. Change to prednisone 40 mg once daily today. Status: Acute Qualifiers: Hypotension type: other hypotension type Qualified Code(s): I95.89 - O ther hypotension (6) Pneumonia: Possible pneumonia on CTA. Continue Zosyn. Sputum culture and MRSA PCR pending. Procalcitonin level not elevated. Status: Acute (7) Elevated d-dimer: CTA negative for pulmonary embolism Status: Acute Additional A&P Information CHF, EF preserved. No evidence of acute exacerbation. Last echocardiogram demonstrated an EF of 65 to 70% and grade 2 diastolic dysfunction. Repeat demonstrates preserved EF, moderate aortic stenosis Coronary artery disease. Elevated troponin, see above COPD, no evidence of current exacerbation Type 2 diabetes. Sliding scale insulin Tobacco dependency. Encourage cessation Hyperthyroidism. Check thyroid studies Multiple other medical problems as outlined in past medical history Heparin for DVT prophylaxis Full code Transfer to cardiac stepdown unit Attestations Medical Necessity Statement*: Needs continued hospitalization for follow-up of acute kidney injury, non-ST elevation myocardial infarction, and continued IV antibiotics for pneumonia. 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
--- NOTE | 2021-08-03 11:17 | PM.PN ---
Subjective Subjective: Interval history: Patient says he is feeling better denies any chest pain. Creatinine has slightly improved we do not know what is the baseline still 1.6. Echo showed ejection fraction normal with moderate aortic stenosis Medications: Reviewed: Yes Vitals/I&O/Wt Last Vital Signs Temp 98.7 F 08/03/21 08:00 Pulse 85 08/03/21 10:00 Resp 16 08/03/21 06:48 BP 120/71 08/03/21 10:00 Pulse Ox 90 08/03/21 10:00 08/02/21 08/03/21 08/03/21 22:59 06:59 14:59 Intake Total 926.165 / 2878.165 591.373 / 3469.538 1487.5 / 1487.5 Output Total 500 / 500 1450 / 1950 550 / 550 Balance 426.165 / 2378.165 -858.627 / 1519.538 937.5 / 937.5 Weight last 48 hrs Weight 211 lb Weight 200 lb Physical Exam Narrative: EXAM NARRATIVE: GENERAL: Patient is alert, awake and oriented x3. NECK: No jugular vein distension. HEENT: No cyanosis. No icterus. No pallor. HEART: Regular S1 and S2. No murmur, rub or gallop. LUNGS: Clear to auscultate bilaterally. ABDOMEN: Soft, nontender and nondistended. Positive bowel sounds. No guarding, rebound or tenderness. CENTRAL NERVOUS SYSTEM: Grossly nonfocal. EXTREMITIES: Lower extremities without edema bilaterally. Data : 08/03/21 04:14 08/03/21 04:14 Micro: Microbiology 08/02/21 10:07 Blood Culture - Preliminary Blood NEGATIVE TO DATE 08/02/21 07:15 Blood Culture - Preliminary Blood NEGATIVE TO DATE A&P Assessment and plan (1) Non-ST elevation VT (NSTEMI): Patient has had chest pain followed by syncope and high cardiac markers may suggest non-ST elevation VT/acute coronary syndrome. Patient has extensive history of coronary artery disease. At this point he may require further assessment with left heart cath however due to acute renal failure we would like to improve his renal function first. Once back to baseline will proceed with left heart cath which may take a couple of days. I have detailed discussion with the patient have explained them all risk benefit and already for the procedure he would like to proceed with it. For now we will add Plavix to the regimen. Left ventricle function appeared to be normal on echocardiogram with moderate aortic stenosis. We will continue as ever plan continue to treat medically with aspirin statin clopidogrel beta-sweetie and anticoagulation. Continue IV fluid to improve the creatinine. Status: Acute (2) KEI (acute kidney injury): Continue IV fluid at 1 mL/h continue to monitor creatinine Status: Acute (3) Atrial fibrillation: Stable from heart rate twice perspective amiodarone Status: Acute Qualifiers: Atrial fibrillation type: paroxysmal Qualified Code(s): I48.0 - Paroxysmal atrial fibrillation (4) Hypotension: Continue IV fluids patient is off pressors. Status: Acute Qualifiers: Hypotension type: other hypotension type Qualified Code(s): I95.89 - Other hypotension Attestations Medical Necessity Statement*: Patient require continuation hospitalization for above defined care. 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
[2021-08-03 11:26] LABS: Glucose Point of Care 177 mg/dL (70-110)
--- NOTE | 2021-08-03 14:50 | PC.NURSE ---
Pt transferred to 105. tolerated well.
[2021-08-03 16:54] LABS: Glucose Point of Care 294 mg/dL (70-110)
[2021-08-03 19:44] LABS: Glucose Point of Care 291 mg/dL (70-110)
[2021-08-03] MEDS: trazodone 50 mg Tablet PO (19:51)
[2021-08-03] MEDS: heparin 5,000 unit/mL INJ 1 mL 5000 UNIT SUBCUT (19:52)
--- NOTE | 2021-08-03 19:55 | PC.NURSE ---
Received pt from ICU. Pt A&O x4, Resp even and non-labored no distress noted. Pt O2 at 5 Lpm via nc. Pt has no c/o pain or discomfort at the present time. No needs voiced. Call light in reach. Will cont to monitor.
[2021-08-04] VITALS (14 sets, daily range): BP systolic 114–138; BP diastolic 56–67; PULSE 65–81; RESP 16–21; O2SAT 91–96
[2021-08-04] MEDS: atorvastatin 40 mg Tablet PO (05:18)
[2021-08-04] MEDS: methIMAzole 5 MG Tablet 2.5 MG PO (05:18)
[2021-08-04] MEDS: roflumilast 500 mcg Tablet PO (05:18)
[2021-08-04] MEDS: piperacillin-tazobactam 3.375 GM in sodium chloride 0.9% (plus) 50 ML IV ×3 (05:19→22:41)
[2021-08-04 06:10] LABS: Eosinophils % 0.5 %; Hematocrit 39.6 % (42.0-52.0); Hemoglobin 12.7 g/dL (11.7-16.6); Lymphocytes # 0.5 10^3/uL (0.8-4.8); Lymphocytes % 7.3 %; Mean Corpuscular HGB Conc 32.1 g/dL (30.0-36.0); Mean Corpuscular Hemoglobin 29.9 pg (28.0-34.0); Mean Corpuscular Volume 93.2 fl (80-94); Mean Platelet Volume 9.7 fL (7.4-10.4); Monocytes # 0.5 10^3/uL (0.2-0.9); Monocytes % 6.5 %; Neutrophils % 85.3 %; Nucleated Red Blood Cells % 0 %; Platelet Count 237 10^3/cmm (130-400); Red Blood Count 4.25 10^6/uL (4.1-5.3); White Blood Count 7.4 10^3/uL (4.0-10.0)
[2021-08-04 06:30] LABS: Alanine Aminotransferase 10 U/L (0-41); Albumin Level 3.2 g/dL (3.5-5.2); Alkaline Phosphatase 52 IU/L (40-130); Anion Gap 8.2 (5-19); Aspartate Amino Transferase 9 U/L (0-40); Blood Urea Nitrogen 28 mg/dL (8-23); Calcium 8.8 mg/dL (8.5-10.5); Carbon Dioxide 38 mmol/L (22-29); Chloride 90 mmol/L (98-107); Creatinine Clr Calc Pharmacy 80.4043; Globulin 2.1 g/dL (1.3-4.6); Glomerular Filtration Rate 75.5 mL/min (90-130); Glucose 83 mg/dL (65-115); Osmolality Calculated 281 mOsm/kg (285-295); Potassium 3.2 mmol/L (3.5-5.1); Sodium 133 mmol/L (136-145); Total Bilirubin 0.4 mg/dL (0.15-1.2); Total Protein 5.3 g/dL (6.6-8.7)
[2021-08-04 06:34] LABS: Glucose Point of Care 199 mg/dL (70-110)
[2021-08-04] MEDS: ipratropium-albuterol 3 mL Neb INHALATION ×4 (08:01→21:07)
[2021-08-04] MEDS: metoprolol tartrate 25 mg Tablet 12.5 MG PO ×2 (09:21→20:11)
[2021-08-04] MEDS: aspirin 81 mg EC Tablet PO (09:21)
[2021-08-04] MEDS: heparin 5,000 unit/mL INJ 1 mL 5000 UNIT SUBCUT ×2 (09:21→20:12)
[2021-08-04] MEDS: amiodarone 200 mg Tablet PO ×2 (09:21→17:21)
[2021-08-04] MEDS: pantoprazole DR 40 mg Tablet PO (09:21)
[2021-08-04] MEDS: predniSONE 20 mg Tablet 40 MG PO (09:21)
[2021-08-04] MEDS: potassium chloride ER 20 mEq Tablet 40 MEQ PO ×2 (09:25→12:14)
--- NOTE | 2021-08-04 10:17 | PM.PN ---
Subjective Subjective: Interval history: Nagi reports he is doing okay. No chest discomfort. Medications: Reviewed: Yes Vitals/I&O/Wt Last Vital Signs Temp 97.7 F 08/03/21 23:31 Pulse 78 08/04/21 08:27 Resp 18 08/04/21 08:27 BP 127/56 08/04/21 08:00 Pulse Ox 96 08/04/21 08:27 08/03/21 08/04/21 08/04/21 22:59 06:59 14:59 Intake Total 832.5 / 2820.0 1250 / 4070.0 240 / 240 Output Total 1650 / 2625 2250 / 4875 300 / 300 Balance -817.5 / 195.0 -1000 / -805.0 -60 / -60 Weight last 48 hrs Weight 99.155 kg Weight 95.708 kg Physical Exam Narrative: EXAM NARRATIVE: General exam no distress Neck is supple no lymphadenopathy Cardiovascular regular rate and rhythm, no murmur. Lungs diminished breath sounds bilaterally but no wheezes or crackles Abdomen is soft with positive bowel sounds. Extremities trace bilateral edema. Skin tear left upper extremity examined. No evidence of infection. No current bleeding. Data : 08/04/21 05:30 08/04/21 05:30 Micro: Microbiology 08/02/21 14:45 MRSA Culture - Final Nose 08/02/21 10:07 Blood Culture - Preliminary Blood NEGATIVE TO DATE 08/02/21 07:15 Blood Culture - Preliminary Blood NEGATIVE TO DATE A&P Assessment and plan (1) Non-ST elevation MD (NSTEMI): Significant delta troponin. This may herald a non-ST elevation myocardial infarction. However, it is also noted the patient was in atrial fibrillation with rapid ventricular rate on arrival and has spontaneously converted to sinus rhythm. This could have triggered the troponin elevation considering his underlying heart disease. Cardiology consultation appreciated With blood pressure improved low-dose beta-sweetie was added Cardiology has added Plavix. Aspirin changed to low-dose Continue statin Secondary to significant history of GI bleed on Eliquis, and oozing from his abrasion left upper extremity sustained in fall from at home high dose Lovenox was discontinued and he was changed to subcutaneous heparin Repeat limited echocardiogram demonstrates preserved EF Status: Acute (2) KEI (acute kidney injury): Creatinine elevated on admission. Diuretics were held Bladder scan showed no obvious bladder outlet obstruction Avoid renal toxic medication CK checked and not elevated. Renal function has returned to normal Discontinue IV fluids Status: Acute (3) Atrial fibrillation: Presented with atrial fibrillation with rapid ventricular rate. Continue amiodarone 200 mg twice daily Metoprolol low-dose added Cardiology consultation appreciated Status: Acute Qualifiers: Atrial fibrillation type: paroxysmal Qualified Code(s): I48.0 - Paroxysmal atrial fibrillation (4) Hypokalemia: Replace Magnesium level was checked and normal Status: Acute (5) Hypotension: Hold antihypertensives and diuretics CTA demonstrates no pulmonary embolism Continue to follow closely. Blood cultures negative to date Urinalysis negative for infection. Cortisol level not diminished. Risk of secondary adrenal insufficiency with multiple steroid courses since early June hydrocortisone was started on admission. Reduce dose to 30 mg of prednisone daily Status: Acute Qualifiers: Hypotension type: other hypotension type Qualified Code(s): I95.89 - Other hypotension (6) Pneumonia: Possible pneumonia on CTA. Continue Zosyn. Sputum culture and MRSA PCR pending. Procalcitonin level not elevated. Status: Acute (7) Elevated d-dimer: CTA negative for pulmonary embolism Status: Acute Additional A&P Information CHF, EF preserved. No evidence of acute exacerbation. Last echocardiogram demonstrated an EF of 65 to 70% and grade 2 diastolic dysfunction. Repeat demonstrates preserved EF, moderate aortic stenosis Coronary artery disease. Elevated troponin, see above COPD, no evidence of current exacerbation Type 2 diabetes. Sliding scale insulin Tobacco dependency. Encourage cessation Hyperthyroidism. Check thyroid studies Multiple other medical problems as outlined in past medical history Heparin for DVT prophylaxis Full code Attestations Medical Necessity Statement*: Needs continued hospitalization pending further cardiac work-up for non-ST elevation myocardial infarction. 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
--- NOTE | 2021-08-04 10:58 | P.PN_ITS ---
Vitals/I&O/Wt Last Vital Signs Temp 97.7 F 08/03/21 23:31 Pulse 78 08/04/21 08:27 Resp 18 08/04/21 08:27 BP 127/56 08/04/21 08:00 Pulse Ox 96 08/04/21 08:27 08/03/21 08/04/21 08/04/21 22:59 06:59 14:59 Intake Total 832.5 / 2820.0 1250 / 4070.0 1240 / 1240 Output Total 1650 / 2625 2250 / 4875 300 / 300 Balance -817.5 / 195.0 -1000 / -805.0 940 / 940 Weight last 48 hrs Weight 218 lb 9.6 oz Weight 211 lb Data : 08/04/21 05:30 08/04/21 05:30 Micro: Microbiology 08/02/21 14:45 MRSA Culture - Final Nose 08/02/21 10:07 Blood Culture - Preliminary Blood NEGATIVE TO DATE 08/02/21 07:15 Blood Culture - Preliminary Blood NEGATIVE TO DATE Coding Level of Care Code 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
[2021-08-04 11:31] LABS: Glucose Point of Care 106 mg/dL (70-110)
[2021-08-04 16:26] LABS: Glucose Point of Care 309 mg/dL (70-110)
--- NOTE | 2021-08-04 17:50 | PM.PN ---
Subjective Subjective: Interval history: Feels much better creatinine has stabilized. Detailed discussion with the patient regarding compliance with Plavix if needed stent. He agreed to it Medications: Reviewed: Yes Vitals/I&O/Wt Last Vital Signs Temp 97.7 F 08/03/21 23:31 Pulse 81 08/04/21 17:00 Resp 20 H 08/04/21 17:00 BP 128/59 08/04/21 15:59 Pulse Ox 93 08/04/21 17:00 08/04/21 08/04/21 08/04/21 06:59 14:59 22:59 Intake Total 1250 / 4070.0 1530 / 1530 360 / 1890 Output Total 2250 / 4875 1000 / 1000 300 / 1300 Balance -1000 / -805.0 530 / 530 60 / 590 Weight last 48 hrs Weight 218 lb 9.6 oz Weight 211 lb Physical Exam Narrative: EXAM NARRATIVE: GENERAL: Patient is alert, awake and oriented x3. NECK: No jugular vein distension. HEENT: No cyanosis. No icterus. No pallor. HEART: Regular S1 and S2. No murmur, rub or gallop. LUNGS: Clear to auscultate bilaterally. ABDOMEN: Soft, nontender and nondistended. Positive bowel sounds. No guarding, rebound or tenderness. CENTRAL NERVOUS SYSTEM: Grossly nonfocal. EXTREMITIES: Lower extremities without edema bilaterally. Data : 08/04/21 05:30 08/04/21 05:30 Micro: Microbiology 08/04/21 11:30 Gram Stain - Final Sputum - Expectorated Sputum 08/02/21 14:45 MRSA Culture - Final Nose A&P Assessment and plan (1) Non-ST elevation DC (NSTEMI): Patient has had chest pain followed by syncope and high cardiac markers may suggest non-ST elevation DC/acute coronary syndrome. Patient has extensive history of coronary artery disease. At this point he may require further assessment with left heart cath however due to acute renal failure we would like to improve his renal function first. Once back to baseline will proceed with left heart cath which may take a couple of days. I have detailed discussion with the patient have explained them all risk benefit and already for the procedure he would like to proceed with it. For now we will add Plavix to the regimen. Left ventricle function appeared to be normal on echocardiogram with moderate aortic stenosis. We will continue as ever plan continue to treat medically with aspirin statin clopidogrel beta-sweetie and anticoagulation. Continue IV fluid to improve the creatinine. Patient creatinine has improved to normal. We will proceed with left heart cath in the morning. I have again detailed discussions with the patient regarding necessity for compliance. He has assured me that he would like to continue with left heart cath and will be compliant with DAPT dual antiplatelet therapy including Plavix and aspirin for at least expensive 1 year or more if required. Status: Acute (2) KEI (acute kidney injury): Creatinine is normal. We will proceed with left heart cath tomorrow Status: Acute (3) Atrial fibrillation: Stable. 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
[2021-08-04] MEDS: clopidogrel 300 mg Tablet PO (18:21)
[2021-08-04] MEDS: acetaminophen 325 mg Tablet 650 MG PO (19:33)
[2021-08-04] MEDS: morphine 4 mg/mL SDV 1 mL 2 MG IVP (19:42)
[2021-08-04 19:58] LABS: Glucose Point of Care 304 mg/dL (70-110)
[2021-08-04] MEDS: trazodone 50 mg Tablet PO (20:12)
[2021-08-05] VITALS (26 sets, daily range): BP systolic 110–142; BP diastolic 39–75; PULSE 64–89; RESP 11–26; TEMP 36.7–37.1; O2SAT 89–97
[2021-08-05] MEDS: morphine 4 mg/mL SDV 1 mL 2 MG IVP (02:54)
[2021-08-05 05:37] LABS: Anion Gap 9.3 (5-19); Blood Urea Nitrogen 26 mg/dL (8-23); Calcium 8.7 mg/dL (8.5-10.5); Carbon Dioxide 38 mmol/L (22-29); Chloride 96 mmol/L (98-107); Glomerular Filtration Rate 85.2 mL/min (90-130); Glucose 137 mg/dL (65-115); Magnesium 1.9 mg/dL (1.7-2.3); Osmolality Calculated 295 mOsm/kg (285-295); Potassium 4.3 mmol/L (3.5-5.1); Sodium 139 mmol/L (136-145)
[2021-08-05 06:10] LABS: Glucose Point of Care 155 mg/dL (70-110)
[2021-08-05] MEDS: piperacillin-tazobactam 3.375 GM in sodium chloride 0.9% (plus) 50 ML IV (06:18)
[2021-08-05] MEDS: atorvastatin 40 mg Tablet PO (06:18)
[2021-08-05] MEDS: methIMAzole 5 MG Tablet 2.5 MG PO (06:19)
[2021-08-05] MEDS: roflumilast 500 mcg Tablet PO (06:19)
--- NOTE | 2021-08-05 07:41 | PM.PN ---
Subjective Subjective: Interval history: Nagi reports he is doing okay. No chest pain. Not short of breath. Ready for his angiogram today. Medications: Reviewed: Yes Vitals/I&O/Wt Last Vital Signs Temp 98.1 F 08/05/21 07:25 Pulse 71 08/05/21 07:25 Resp 18 08/05/21 07:25 BP 142/75 08/05/21 07:25 Pulse Ox 94 08/05/21 07:25 08/04/21 08/05/21 08/05/21 22:59 06:59 14:59 Intake Total 410 / 1940 1989 Output Total 550 / 1550 1450 / 3000 Balance -140 / 390 -1400 / -1010 Weight last 48 hrs Weight 97.522 kg Weight 99.155 kg Physical Exam Narrative: EXAM NARRATIVE: General exam no distress Neck is supple no lymphadenopathy Cardiovascular regular rate and rhythm, no murmur. Lungs diminished breath sounds bilaterally but no wheezes or crackles Abdomen is soft with positive bowel sounds. Extremities trace bilateral edema. Dressing left upper extremity, dry without any evidence of active bleeding. Data : 08/04/21 05:30 08/05/21 04:27 Micro: Microbiology 08/04/21 11:30 Gram Stain - Final Sputum - Expectorated Sputum A&P Assessment and plan (1) Non-ST elevation [place] (NSTEMI): Significant delta troponin. This may herald a non-ST elevation myocardial infarction. However, it is also noted the patient was in atrial fibrillation with rapid ventricular rate on arrival and has spontaneously converted to sinus rhythm. This could have triggered the troponin elevation considering his underlying heart disease. Cardiology consultation appreciated With blood pressure improved low-dose beta-sweetie was added Cardiology has added Plavix. Aspirin changed to low-dose Continue statin Secondary to significant history of GI bleed on Eliquis, and oozing from his abrasion left upper extremity sustained in fall from at home high dose Lovenox was discontinued and he was changed to subcutaneous heparin Repeat limited echocardiogram demonstrates preserved EF Angiogram planned today Status: Acute (2) KEI (acute kidney injury): Creatinine elevated on admission. Diuretics were held Bladder scan showed no obvious bladder outlet obstruction Avoid renal toxic medication CK checked and not elevated. Renal function has returned to normal IV fluids were discontinued Status: Acute (3) Atrial fibrillation: Presented with atrial fibrillation with rapid ventricular rate. No evidence of recurrence Continue amiodarone 200 mg twice daily Metoprolol low-dose added Cardiology consultation appreciated Status: Acute Qualifiers: Atrial fibrillation type: paroxysmal Qualified Code(s): I48.0 - Paroxysmal atrial fibrillation (4) Hypokalemia: Replace Magnesium level was checked and normal Status: Acute (5) Hypotension: Hold antihypertensives and diuretics CTA demonstrates no pulmonary embolism Continue to follow closely. Blood cultures negative to date Urinalysis negative for infection. Cortisol level not diminished. Risk of secondary adrenal insufficiency with multiple steroid courses since early June hydrocortisone was started on admission. Prednisone reduced to 30 mg a day August 04. Plan to decrease to 20 mg in 2 days, 10 mg 3 days after that, and then may need slow taper. Status: Acute Qualifiers: Hypotension type: other hypotension type Qualified Code(s): I95.89 - Other hypotension (6) Pneumonia: Possible pneumonia on CTA. Currently on Zosyn. Sputum culture pending. MRSA PCR negative. Blood cultures negative. Procalcitonin level not elevated. Status: Acute (7) Elevated d-dimer: CTA negative for pulmonary embolism Status: Acute Additional A&P Information CHF, EF preserved. No evidence of acute exacerbation. Last echocardiogram demonstrated an EF of 65 to 70% and grade 2 diastolic dysfunction. Repeat demonstrates preserved EF, moderate aortic stenosis Coronary artery disease. Elevated troponin, see above COPD, no evidence of current exacerbation Type 2 diabetes. Sliding scale insulin Tobacco dependency. Encourage cessation Hyperthyroidism. Check thyroid studies Multiple other medical problems as outlined in past medical history Heparin for DVT prophylaxis Full code Attestations Medical Necessity Statement*: Needs continued hospitalization pending investigation of non-ST elevation myocardial infarction. 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
[2021-08-05] MEDS: ipratropium-albuterol 3 mL Neb INHALATION ×2 (08:00→15:35)
--- NOTE | 2021-08-05 09:15 | XACV_ITS ---
Exam Room: [facility] Ht: 165 cm Wt: 99 kg BSA: 2.17 m2 Gender: Male : 1955 Any Known Allergies: No known allergies Exam Priority: Routine Procedure(s): Procedure Description: Diagnostic procedure Procedure Description: Coronary Angiography Beatriz NERI; Diagnostic Cath Status: Elective Conclusions 1. Patent prior proximal LAD stent.. Recommendations * Return to inpatient for close monitoring and routine cath care. * Risk factor modification for secondary prevention. * Statin and aspirin 81mg lifelong, if tolerated. * Continue optimal medical management. Meticulous diabetes control. Diagnostic RX Recommendation: medical therapy and/or counseling Pressures Phase:Rest AO : 119 / 72 ( 93 ) @ 10:13:00 AM 120 / 74 ( 95 ) @ 10:14:00 AM 118 / 72 ( 92 ) @ 10:16:00 AM Clinical Evaluation EBL: 5mL-10mL Procedural Details Procedure Consent Obtained. Current Diagnosis : NSTEMI. Pre-Procedure Time Out. Identified patient by full name and date of as verbalized by the patient/guarantor. Does the consent match the physician's order: Yes. Accurate & Complete Informed Consent: Yes. Inpatient/Outpatient History & Physical on Chart: Yes. If H&P is completed, is and addenduem needed: No; If yes, is the addendum complete: N/A. Visualize and Verify Site with Patient/Guarantor: N/A. Relevant Radiology Images available: Yes. Pre-op teaching completed and patient verbalized understanding. The risks, benefits, and alternatives of sedation and/or procedure were discussed by physician. The patient agrees to continue. Procedure started. [facility] Clinical Fraility Score: 4: Vulnerable. Multiple Resaw Operator Indications: ACS > 24 hours. Chest Pain Symptom Assessment: Typical Angina Symptoms. Correct patient, site and procedure confirmed by cath team. Current diagnosis: NSTEMI. PERRLA. 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 Lungs clear x 5 lobes. IV Site on Arrival: 20 gauge in the left wrist. IV Fluids: 0.9% NaCl at KVO. 900 mL infused prior to laborer demolition. Oxygen started at 5liters/min via nasal canula. right groin was prepped with chloroprep then draped in the usual sterile fashion. right radial was prepped with chloroprep then draped in the usual sterile fashion. Physician notified. Baseline sample Acquired. HR: 70 BPM. Respiratory called to bring Bipap. Physician arrived. Physician scrubbed in. Immediate Pre-Procedure Time Out. Correct Patient: Yes; Correct Procedure: Yes; Correct Site: Yes; Correct Patient Position: Yes; Correct Supplies: Yes; Dried Flammable Prep: Yes; Blood Products Available: N/A;. Respiratory arrived. Lidocaine 1% infiltrated to the right radial. Arterial access obtained. A 5 english TIG catheter in over wire. Multiple views taken of left coronary artery. Catheter redirected to the RCA. Multiple views taken of right coronary artery. Catheter removed over the exchange wire. A TR Band was successful obtaining hemostatsis at the Right Radial artery insertion site. TR band placed. Hemostasis obtained. Post Procedure: Pulses reassessed and unchanged. PERRLA. 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 No VTE prophylaxis required. Medication's Wasted: Lidocaine 1% = 14 mL. Medication's Wasted: Nitro = 49.8 mcg. Medication's Wasted: Heparin = 1000 units. Medication's Wasted: Other = Fentanyl 50 mcg. Medication's Wasted: Other = Versed 0.5 mg. Total IV fluids: 31 mL. Contrast type used: Omnipaque 300 mgI/mL, 500 mL bottle. Complications: None. Estimated blood loss: 5mL-10mL. Procedure completed. Patient transferred by bed to ICU. Vital chart was stopped. Access Site Site: Right Radial artery Sheath Size: 6 Fr Hemostasis Method: TR Band Hemostasis Success: Successful Procedure Medications Start: 10:58 AM Stop: 10:58 AM Medication: Fentanyl Amount: 50 mcg Route: I.V. Start: 11:11 AM Stop: 11:11 AM Medication: Nitrogylcerin Amount: 200 mcg Route: I.A. Start: 11:12 AM Stop: 11:12 AM Medication: Heparin Amount: 5000 units Route: I.V. Start: 11:14 AM Stop: 11:14 AM Medication: Versed Amount: 0.5 mg Route: I.V. I, the attending physician, have reviewed and verified all procedure medications. Yes, all medications given per verbal order History/Risk Factors Hypertension: Yes Dyslipidemia: No Peripheral Arterial Disease (PAD): No Myocardial Infarction (MA): Yes Obesity: No Renal Disease: No Prior Interventions PCI: Yes CABG: No Valve Surgery: No Date of PCI: 05/06/2011 Report Signatures Finalized by Erick Hendersno MD on 08/21/2021 05:23 PM
--- NOTE | 2021-08-05 09:34 | PC.SOCIAL ---
IMM Update pg 2 of IMM updated and reviewed w/ patient. Copy provided.
[2021-08-05] MEDS: predniSONE 20 mg Tablet 30 MG PO (09:36)
[2021-08-05] MEDS: aspirin 81 mg EC Tablet PO (09:36)
[2021-08-05] MEDS: amiodarone 200 mg Tablet PO (09:36)
[2021-08-05] MEDS: pantoprazole DR 40 mg Tablet PO (09:37)
[2021-08-05] MEDS: metoprolol tartrate 25 mg Tablet 12.5 MG PO (09:37)
[2021-08-05] MEDS: diphenhydrAMINE 50 mg Capsule PO (09:37)
[2021-08-05] MEDS: neomycin-poly-bacitracin oint 28 gm 1 APPLIC TOPICAL (09:39)
[2021-08-05 10:31] LABS: Glucose Point of Care 164 mg/dL (70-110)
--- NOTE | 2021-08-05 10:49 | PC.NURSE ---
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
--- NOTE | 2021-08-05 10:59 | W.PM.OPSUD ---
Surgery/Procedure H&P Update DATE OF PROCEDURE: August 05, 2021 DATE H&P PERFORMED: 08/04/21 H&P UPDATE INFORMATION: I have reviewed H&P completed within last 30 days and I have examined patient prior to procedure PREOP DIAGNOSIS: Acute coronary syndrome PLANNED PROCEDURE: Operation Date: 08/05/21 10:00 Proposed Procedures p Cardiac Catheterization(Left) - Erick Henderson MD PATIENT REASSESSED PRIOR TO SEDATION, WITH NO CHANGE NOTED: Yes PHYSICAL EXAM: alert and oriented x 3 OTHER PERTINENT EXAM FINDINGS: Decreased breath sounds AIRWAY EVAL/ANESTHESIA PLAN: ASA II, Risks, benefits & alternatives of sedation and/or procedure discussed and Patient agrees to continue as planned
--- NOTE | 2021-08-05 11:31 | P.PN_ITS ---
Subjective Subjective: Interval history: S/p coronary angiogram showing no significant disease with patent prior LAD stent. Medications: Reviewed: Yes Vitals/I&O/Wt Last Vital Signs Temp 98.1 F 08/05/21 07:25 Pulse 79 08/05/21 08:00 Resp 16 08/05/21 08:00 BP 142/75 08/05/21 07:25 Pulse Ox 94 08/05/21 08:00 08/04/21 08/05/21 08/05/21 22:59 06:59 14:59 Intake Total 410 / 1940 50 / 1989 50 / 50 Output Total 550 / 1550 1450 / 3000 500 / 500 Balance -140 / 390 -1400 / -1010 -450 / -450 Weight last 48 hrs Weight 215 lb Weight 218 lb 9.6 oz Physical Exam Narrative: EXAM NARRATIVE: GENERAL: Patient is alert, awake and oriented x3. NECK: No jugular vein distension. HEENT: No cyanosis. No icterus. No pallor. HEART: Regular S1 and S2. No murmur, rub or gallop. LUNGS: Clear to auscultate bilaterally. ABDOMEN: Soft, nontender and nondistended. Positive bowel sounds. No guarding, rebound or tenderness. CENTRAL NERVOUS SYSTEM: Grossly nonfocal. EXTREMITIES: Lower extremities without edema bilaterally. Const: COMMON NORMALS: alert Neuro: SENSORIUM/ORIENTATION: Yes alert Data : 08/04/21 05:30 08/05/21 04:27 Micro: Microbiology 08/04/21 11:30 Gram Stain - Final Sputum - Expectorated Sputum Sputum Culture - Preliminary A&P Assessment and plan (1) Non-ST elevation MT (NSTEMI): Patient has had chest pain followed by syncope and high cardiac markers may suggest non-ST elevation MT/acute coronary syndrome. Patient has extensive history of coronary artery disease. At this point he may require further assessment with left heart cath however due to acute renal failure we would like to improve his renal function first. Once back to baseline will proceed with left heart cath which may take a couple of days. I have detailed discussion with the patient have explained them all risk benefit and already for the procedure he would like to proceed with it. For now we will add Plavix to the regimen. Left ventricle function appeared to be normal on echocardiogram with moderate aortic stenosis. We will continue as ever plan continue to treat medically with aspirin statin clopidogrel beta-sweetie and anticoagulation. Continue IV fluid to improve the creatinine. Patient creatinine has improved to normal. We will proceed with left heart cath in the morning. I have again detailed discussions with the patient regarding necessity for compliance. He has assured me that he would like to continue with left heart cath and will be compliant with DAPT dual antiplatelet therapy including Plavix and aspirin for at least expensive 1 year or more if required. Status post coronary angiogram. Patent previously placed LAD stent without any other significant disease. Continue current management. Status: Acute (2) KEI (acute kidney injury): Creatinine was normalized most likely due to overdiuresis. Will adjust diuretics Status: Acute (3) Atrial fibrillation: Stable. Continue current regimen Status: Acute Qualifiers: Atrial fibrillation type: paroxysmal Qualified Code(s): I48.0 - Paroxysmal atrial fibrillation (4) Hypotension: Improved Status: Acute Qualifiers: Hypotension type: other hypotension type Qualified Code(s): I95.89 - Other hypotension Attestations Medical Necessity Statement*: From cardiovascular perspective patient can be discharged home Coding Level of Care Code Established Pt Acute Flight Attendant Inflight Services for [facility] Fwd Patient Type Established History Detailed Exam Detailed Medical Decision Making Moderate Complexity Diagnoses Non-ST elevation MT (NSTEMI) I21.4 KEI (acute kidney injury) N17.9 Atrial fibrillation I48.0 Atrial fibrillation type: paroxysmal Hypotension I95.89 Hypotension type: other hypotension type
--- NOTE | 2021-08-05 13:22 | PM.DCS ---
Discharge Providers Date of Admission: 08/02/21 13:09 Date of Discharge: August 05, 2021 Attending Provider at Admission: Mikie Berry MD Attending Provider at Discharge: Mikie Berry MD Primary Care Provider: Nasreen Gomez Diagnoses at Discharge Discharge Diagnosis (1) Non-ST elevation NE (NSTEMI): Status: Acute (2) KEI (acute kidney injury): Status: Acute (3) Atrial fibrillation: Status: Acute Permanent problem details: Qualifiers: Atrial fibrillation type: paroxysmal Qualified Code(s): I48.0 - Paroxysmal atrial fibrillation (4) Hypotension: Status: Acute Qualifiers: Hypotension type: other hypotension type Qualified Code(s): I95.89 - Other hypotension Reason for Visit Reason for Visit: chest pain Hospital Course Hospital Course Nagi is a 65-year-old white male who presented on August 02 with chest discomfort. Syncopal episode also occurred. Initial rhythm was atrial fibrillation with rapid ventricular rate. In the emergency department he received a CTA, with questionable pneumonia and no pulmonary embolism. Troponin was markedly elevated with significant delta. IV antibiotics were initiated. He was placed on full anticoagulation with aspirin and eventually Plavix. Acute kidney injury was noted as well, and hypotension. Cardiology was consulted, and patient was medically managed as a bridge for potential angiogram later in the hospital course. Echocardiogram was completed demonstrating preserved EF, no significant wall motion abnormalities. With hydration and holding of diuretics, patient improved and an angiogram was performed August 05. From my conversation with cardiology, no significant flow-limiting disease was noted. I reviewed with cardiology potential reductions in diuretics, for discharge home to follow-up in cardiology clinic as well as with primary care provider. During his hospital stay I also considered adrenal insufficiency secondary to frequent steroid courses. By time of discharge his blood pressure was adequate at 127/69. He will follow-up in cardiology clinic. He will follow-up with his primary. A BMP will be drawn in 3 to 5 days. Prednisone taper as described and instructions, with further tapering per primary care provider. He will take 3 more days of oral antibiotic to complete his treatment for possible pneumonia. On cardiology follow-up, potential reduction in amiodarone dose should be considered as well. Calcium channel sweetie was discontinued while in the hospital and low-dose beta-sweetie initiated. Physical Exam Narrative: EXAM NARRATIVE: General exam no distress Neck is supple Cardiovascular regular rate rhythm without murmur Lungs clear but diminished breath sounds bilaterally Abdomen soft with positive bowel sounds Extremities no cyanosis clubbing or edema Discharge Data Data Completed and Pending: Completed Studies During Hospitalization Category Date Time Status CT angio chest PE protcl 93806 Urge nt Cat Scan 08/02/21 06:28 Completed XR chest 1V aftab ble [id number] Stat Exams 08/02/21 03:22 Completed CV. 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 Routin e Exams 08/05/21 09:15 Ordered Basic Metabolic P víctor AM LABS Lab 08/06/21 04:00 Ordered Blood Culture Sta t Lab 08/02/21 10:07 Results Complete Blood Co unt w/Auto AM LABS Lab 08/06/21 04:00 Ordered Sputum Culture an d Gram Stain Routi ne Lab 08/04/21 11:30 Results Labs from last 24 hours 08/05/21 08/05/21 08/05/21 10:28 05:56 04:27 Sodium 139 Potassium 4.3 Chloride 96 L Carbon Dioxide 38 H Anion Gap 9.3 BUN 26 H Creatinine 0.9 GFR Calculation 85.2 L Glucose 137 H POC Glucose 164 H 155 H Calculated Osmolal ity 295 Calcium 8.7 Magnesium 1.9 08/04/21 08/04/21 19:55 16:23 Sodium Potassium Chloride Carbon Dioxide Anion Gap BUN Creatinine GFR Calculation Glucose POC Glucose 304 H 309 H Calculated Osmolal ity Calcium Magnesium Vitals: Last Vital Signs Temp 98.7 F 08/05/21 11:37 Pulse 71 08/05/21 11:37 Resp 18 08/05/21 11:37 BP 127/69 08/05/21 11:37 Pulse Ox 90 08/05/21 11:37 Discharge Plan Discharge Patient Disposition: Home Condition: Stable Prescriptions: New metoprolol tartrate 25 mg Tablet 12.5 mg PO BID@0900,2100 Qty: 30 RF: 0 aspirin 81 mg Tablet,Delayed Release (Dr/Ec) 81 mg PO DAILY Qty: 30 RF: 0 prednisone 10 mg tablet 30 mg PO DAILY Qty: 30 RF: 0 amiodarone [Pacerone] 200 mg Tablet 200 mg PO BID Qty: 60 RF: 0 Triple Antibiotic 3.5mg-400 unit- 5,000 unit/gram Ointment 1 applic topical DAILY Qty: 15 RF: 0 amoxicillin-pot clavulanate [Augmentin] 875-125 mg tablet 1 tab PO BID Qty: 6 RF: 0 Continued Vitamin B12 Gummies 1 - 2 tab PO DAILY RF: 0 budesonide 0.5 mg/2 mL Suspension For Nebulization 0.5 mg inhalation BID RF: 0 Perforomist 20 mcg/2 mL Solution For Nebulization 2 ml INHALATION BID RF: 0 Farxiga 10 mg tablet 10 mg PO DAILY RF: 0 Spiriva Respimat 1.25 mcg/actuation mist 2 puff inhalation DAILY RF: 0 trazodone 50 mg Tablet 50 mg PO BEDTIME@2100 RF: 0 methimazole 5 mg tablet 2.5 mg PO QAM RF: 0 rosuvastatin 10 mg tablet 10 mg PO DAILY RF: 0 Daliresp 500 mcg tablet 500 mcg PO QAM RF: 0 Januvia 50 mg tablet 50 mg PO QAM RF: 0 Lantus Solostar U-100 Insulin 100 unit/mL (3 mL) insulin pen 20 unit SUBCUT BEDTIME RF: 0 omeprazole 40 mg capsule,delayed release(DR/EC) 40 mg PO QAM RF: 0 Jardiance 25 mg tablet 25 mg PO DAILY RF: 0 Entresto 24-26 mg Tablet 1 tab PO BID RF: 0 Changed potassium chloride 20 mEq tablet extended release 20 meq PO BID Qty: 0 RF: 0 furosemide 40 mg tablet 60 mg PO BID Qty: 60 RF: 3 Discontinued metolazone 2.5 mg tablet 2.5 mg PO .Every other day 30 Days Qty: 30 RF: 2 diltiazem HCl 240 mg capsule,extended release 24hr 240 mg PO QAM RF: 0 bumetanide 2 mg tablet 2 mg PO BID RF: 0 amlodipine 5 mg Tablet 5 mg PO QAM RF: 0 propranolol 40 mg Tablet 40 mg PO BID RF: 0 Discharge Orders: Discharge Order (Routine); Ordered 08/05/21 Ordered By: Mikie Berry Referrals: Nasreen Gomez PA [Primary Care Provider] - 4-7 days (BMP on follow-up) Krystal Meneses MD [Physician] - 7-10 days Discharge Diet: Cardiac Discharge Activity: Increase activity as tolerated Patient Instructions: Left Heart Catheterization (DC), Opioid Safety Activity Restrictions/Additional Instructions: Resume oxygen 4 L per nasal cannula Arrange follow-up with cardiology, 5-7 days for follow-up of history of longstanding heart failure, recent angiogram. May see nurse practitioner initial visit Prednisone should be 30 mg a day for 3 days, 20 mg a day for 3 days, 10 mg a day for 3 days, and then further tapering instruction should be given by your primary care provider. Discharge Attestations Time Spent in Discharge Care*: greater than 30 min Status at Discharge: Cognitive status at discharge: cognitively intact, Behavioral status at discharge: cooperative, Quality Metrics Clinical Quality Measures During this hospital stay, did patient experience: None Coding Level of Care Code Acute Chg FW DC note Diagnoses Non-ST elevation NE (NSTEMI) I21.4 KEI (acute kidney injury) N17.9 Atrial fibrillation I48.0 Atrial fibrillation type: paroxysmal Hypotension I95.89 Hypotension type: other hypotension type
--- NOTE | 2021-08-05 15:31 | PC.NURSE ---
meds to bed pt has portable oxygen from home at bedside.
[2021-08-05] MEDS: saline nasal spray 44mL Btl 1 SPRAY NASAL (16:43)
--- NOTE | 2021-08-05 17:09 | PC.NURSE ---
Discharge Note Patient discharged to home w/home health services via wheelchair accompanied by friend. Discharge instructions reviewed with patient and/or community relations representative. Mobile pharmacy medications and/or prescriptions provided. Educated pt on his new meds, dosing and timing. Pt stated he wants to get a home health services to help him set up his meds. Dr. Berry informed. Order received to get a referral. case mgt notified and left a message via secure messaging. Belongings/home medications returned.
--- NOTE | 2021-08-06 09:15 | PC.SOCIAL ---
Addendum entered by Priya Jordan RN 08/06/21 09:40: spoke with pharmacy and they stated patient did burr picker Pacerone. Spoke with pts gf and she reports they do have the medication, they knew the medication as Amiodarone. Original Note: discharge follow up call made, spoke with patient and pts gf. patient reports he is some what weak on his feet. denies chest pain or sob. patient received new medications prior to discharge. Discussed prednisone daper with girlfriend and to discuss with pcp for further dose. pt didn't received Pacerone, will call [facility] pharmacy to see if Pacerone needs a PA. Went over all discontinued medications with pts gf. Also went over changed medications with her. Patient is aware of follow up appointments with pcp and with Dedra Harrison. Patient has orders for , his choice is [facility]. News Commentator called and spoke with [facility] they aren't accepting new referrals at this time, conventional mortgage underwriter will get second option from patient.
--- NOTE | 2021-08-06 09:32 | PC.SOCIAL ---
patients second choice was [facility] at home, orders and discharge summary faxed. patient also wishes to have [facility] for in home services, inspector automatic typewriter will contact and give any info need for these services.
--- NOTE | 2021-08-06 09:40 | PC.SOCIAL ---
spoke with Ed at [facility]. All info given for patient referral.
--- NOTE | 2021-08-06 11:09 | PC.SOCIAL ---
[facility] at home accepted patient. They will provide services.
--- NOTE | 2021-08-06 14:48 | PC.SOCIAL ---
made a home visit to assisted patient with medication set up. patients meds all placed in his pill development planner. patient and girlfriend both have an understanding of medications, correct doses and times to take medications. Patient didn't have rosuvastatin or omeprazole but will get those filled.
== END 2021-08-05 16:46 | disposition home or self-care (01) | DRG 280 ==
LOC: ER 10:53 → ICU 17:33 → CSU 08-03 14:35
PROVIDERS: Emergency Medicine; Internal Medicine Cardiovascular Disease; Admitting Provider Internal Medicine; Emergency Provider Family Medicine; PCP Physician Assistant; Visit Provider Internal Medicine
PROC: B2111ZZ Fluoroscopy of Multiple Coronary Arteries using Low Osmolar Contrast (ICD-10-PCS; principal; 2021-08-05 10:00)
DX: I21.4 Non-ST elevation (NSTEMI) myocardial infarction (principal); J18.9 Pneumonia, unspecified organism; I50.32 Chronic diastolic (congestive) heart failure; J96.11 Chronic respiratory failure with hypoxia; E27.3 Drug-induced adrenocortical insufficiency; N17.9 Acute kidney failure, unspecified; I48.91 Unspecified atrial fibrillation; I25.10 Atherosclerotic heart disease of native coronary artery without angina pectoris; Z95.5 Presence of coronary angioplasty implant and graft; I11.0 Hypertensive heart disease with heart failure; I27.81 Cor pulmonale (chronic); D11.9 Benign neoplasm of major salivary gland, unspecified; I25.2 Old myocardial infarction; G47.33 Obstructive sleep apnea (adult) (pediatric); Z87.01 Personal history of pneumonia (recurrent); F17.210 Nicotine dependence, cigarettes, uncomplicated; E87.6 Hypokalemia; J43.9 Emphysema, unspecified; Z79.4 Long term (current) use of insulin; T38.0X5A Adverse effect of glucocorticoids and synthetic analogues, initial encounter; E05.90 Thyrotoxicosis, unspecified without thyrotoxic crisis or storm; I95.9 Hypotension, unspecified
CPT/HCPCS: 36415; 36416; 51798; 71045; 71275; 80048; 80053; 81001; 82533; 82550; 82803; 82962; 83605; 83735; 83880; 84132; 84145; 84439; 84443; 84481; 84484; 85025; 85378; 85610; 85730; 87040; 87070; 87205; 87641; 93005; 93308; 93454; 94640; 94660; 96365; 96366; 96367; 96372; 96375; 99285; C1769; C1887; C1894; J1644; J1650; J1720; J1815; J2250; J2270; J2405; J2543; J3010; J3475; J3480; J3490; J7030; J7040; J7050; J7512; Q0163; Q9967

== ENCOUNTER 2021-08-12 05:49 | Inpatient (IN) | payer MEDICARE, MEDICAID, SELFPAY ==
[2021-08-12] VITALS (17 sets, daily range): BP systolic 98–136; BP diastolic 53–94; PULSE 70–90; RESP 16–32; TEMP 36.5–36.9; O2SAT 86–99; BMI 34.1; BMI 36.0
--- NOTE | 2021-08-12 06:01 | XRR_ITS ---
PROCEDURE INFORMATION: Exam: XR Chest Exam date and time: 08/12/2021 6:01 AM Age: 65 years old Clinical indication: Cough and dyspnea and shortness of breath; Patient HX: Cough with sob/dyspnea. On cpap vis EMS upon er arrival. History of copd and chf. ; Additional info: Dyspnea/cough TECHNIQUE: Imaging protocol: XR of the chest. Views: 1 view. COMPARISON: CR (CHEST, ) 08/02/2021 4:20 AM FINDINGS: Lungs: There are bibasilar patchy pulmonary infiltrates which have not significantly changed since previous study. Pleural spaces: Unremarkable. No pleural effusion. No pneumothorax. Heart/Mediastinum: Unremarkable. No cardiomegaly. Bones/joints: Unremarkable. XR/XR chest 1V portable [id number] IMPRESSION: No significant change in bibasilar patchy pulmonary infiltrates. Radiation Dose CTDIVOL = (mGy): DLP = (mGy-cm)
--- NOTE | 2021-08-12 06:02 | ECG_ITS ---
[facility] Test Date: 2021-08-12 Pat Name: Nagi Cuellar Department: Room: 253 Gender: Male Cardiovascular Surgeon: : 1955 Requested By: Nagi Arita Order Number: [id number] Dominguez MD: Krystal Meneses M.D. Measurements Intervals [place] Rate: 85 P: 81 HI: 196 QRS: 78 QRSD: 114 T: 62 QT: 373 QTc: 444 Interpretive Statements SINUS RHYTHM INCOMPLETE RIGHT BUNDLE BRANCH BLOCK Compared to ECG 08/02/2021 07:53:38 ST (T wave) deviation no longer present Electronically Signed On 08-13-2021 9:38:32 CDT by Krystal Meneses M.D. [email or web address]
[2021-08-12 06:14] LABS: Alveolar-Arterial Oxygen Gradi 30.9 mmHg (5-10); Arterial Blood Gas Hematocrit 43.5 % (42-52); Blood Gas Operator Identificat HARKR; Blood Gas Sample Site Brachial, left; Blood Gas Sample Type Arterial; Carboxyhemoglobin 8.3 %THgb (0.4-20.1); HCO3 ABG 37.6 mmol/L (22-26); HGB O2 Sat 88.6 % (95-100); Ionized Calcium Level - ABG 1.1 mmol/L (1.1-1.4); Oxygen Device BIPAP; Oxygen Saturation ABG 96.6; Total Hemoglobin 14.2 g/dL (14-18)
[2021-08-12 06:15] LABS: ABG PCO2 77.1 mmHg (35-45)
--- NOTE | 2021-08-12 06:16 | W.ED.SOB ---
HPI - SOB/Dyspnea General: Chief Complaint: Shortness of Breath/Dyspnea Stated Complaint: SOB Time Seen by Provider: 08/12/21 05:52 History of Present Illness: HPI Narrative: 65-year-old male presents to the emergency room with complaints of shortness of breath. Patient has a significant past medical history and actually just recently was discharged from hospital after a week long stay. He had an NSTEMI as well as acute kidney injury exacerbation of COPD which is chronic longstanding problem for him. He denies any chest pain at this time but has had an increasing cough and more difficulty breathing. Upon arrival of EMS he is wearing BiPAP. He has not been known to have Covid and he has had his vaccine x2. MD elicited complaint: shortness of breath and cough Pertinent past history: COPD Onset (ago): hour(s) Context: recent illness Timing: constant Severity: moderate Exacerbating factors: exertion and coughing Relieving factors: oxygen and rest Known history of: COPD and congestive heart failure Associated symptoms: Reports chest congestion and cough; Deny abdominal pain, chest pain, diaphoresis, dizziness, extremity pain, fever(s), hemoptysis, lightheadedness, myalgias, nausea, orthopnea, palpitations, paresthesias, polydipsia, polyuria, rash, sense of impending doom, syncope or vomiting Treatment prior to arrival: oxygen and other (cpap) Review of Systems Const: Denies: fever(s), chills, body aches, change in appetite, fatigue, malaise or diaphoresis ENMT: Denies: throat pain, ear or mastoid pain, nasal discharge or nasal congestion Card: Denies: chest pain, palpitations, edema, lightheadedness, syncope, dyspnea on exertion or orthopnea Resp: Reports: dyspnea, productive cough, change in phlegm color and chest congestion; Denies: non-productive cough or hemoptysis GI: Denies: abdominal pain, nausea, vomiting, hematemesis, coffee ground emesis, diarrhea, constipation, bloating, hematochezia or melena : Denies: flank pain, dysuria, urinary frequency or urinary urgency Musc: Denies: extremity pain Skin/Breast: Denies: rash or pruritus Neuro: Denies: dizziness Endo: Denies: polyuria or polydipsia PFS ED PFSH: Medical History Acute exacerbation of chronic obstructive airways disease Acute hypercapnic respiratory failure Atrial fibrillation Atrial fibrillation with rapid ventricular response CAD (coronary artery disease) Chest pain CHF (congestive heart failure) Chronic respiratory failure with hypoxia Congestive heart failure COPD (chronic obstructive pulmonary disease) Cor pulmonale Diabetes Elevated troponin I level Heart attack Hypertension Hypoxia Nicotine addiction DAYNE (obstructive sleep apnea) Pneumonia Surgical History H/O hernia repair Family History Mother Lung disease COPD Sister Cancer Social History Quit status (tobacco): considering quitting Second hand smoke exposure: Yes Smoking risk assessment/counseling performed?: Yes Alcohol intake: current Alcohol intake frequency: holidays/special occasions only Desire information about alcohol rehabilitation?: No Counseling given: No Desire information about substance/drug rehabilitation?: No Counseling given: No Lives independently: Yes Household members: none Marital status: Single Current occupational status: disabled and 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 History of recent travel: No Current gender identity: Male Physical Exam Const: GENERAL APPEARANCE: cooperative ORIENTATION/CONSCIOUSNESS: Yes awake, Yes oriented to person, Yes oriented to place and Yes oriented to time HENMT: COMMON NORMALS: normocephalic, atraumatic and hearing grossly normal bilaterally HEAD & SCALP: normocephalic and atraumatic Neck/C-Spine: COMMON NORMALS: no JVD Resp: AUSCULTATION: crackles (bases) Laterality: bilateral, wheezes and diminished lung sounds Cardio: COMMON NORMALS: no JVD, regular rate, regular rhythm and No murmurs present (Cardio) RATE: regular rate RHYTHM: regular rhythm GI: COMMON NORMALS: Soft to palpation and No hepatosplenomegaly present AUSCULTATION: Yes normoactive bowel sounds PALPATION: Yes Soft to palpation, No Tenderness to palpation present (GI), No Guarding due to palpation present (GI) and Yes No hepatosplenomegaly present Extremity: COMMON NORMALS: normal to inspection, capillary refill normal, no clubbing, cyanosis or edema, no calf tenderness and no pedal edema Neuro: SENSORIUM/ORIENTATION: Yes oriented to person, Yes oriented to place and Yes oriented to time Skin: COMMON NORMALS: no rashes or lesions noted GENERAL SKIN EXAM: no rashes or lesions noted Course Vital Signs: Vital signs: Vital Signs Temperature 98.5 F 08/12/21 05:52 Pulse Rate 80 08/12/21 08:12 Respiratory Rate 22 H 08/12/21 07:12 Blood Pressure 133/84 08/12/21 07:12 Pulse Oximetry 99 08/12/21 07:12 MDM - SOB/Dyspnea MDM Narrative: Medical decision making narrative: Labs EKG and imaging reviewed as on the chart. Patient is have exacerbation COPD mild worsening congestive heart failure is given Lasix IV here he is continuing on BiPAP is mildly acidotic on initial blood gas and elevated PCO2 discussed Dr. Berry orders written will place on observation. Lab Data: Labs: Lab Results 08/12/21 08/12/21 08/12/21 06:04 06:05 06:05 WBC 7.1 10^3/uL 10^3/ uL (4.0-10.0) RBC 4.65 10^6/uL 10^6 /uL (4.1-5.3) Hgb 13.8 g/dL g/dL (11.7-16.6) Hct 45.2 % % (42.0-52.0) MCV 97.2 fl H fl (80-94) MCH 29.7 pg pg (28.0-34.0) MCHC 30.5 g/dL g/dL (30.0-36.0) RDW 18.6 % H % (12.1-15.1) Plt Count 164 10^3/cmm 10^3 /cmm (130-400) MPV 10.4 fL fL (7.4-10.4) Neut % (Auto) 82.6 % % Lymph % (Auto) 6.2 % % [place] % (Auto) 8.5 % % Eos % (Auto) 0.6 % % Baso % (Auto) 0.6 % % Neut # (Auto) 5.90 10^3/uL 10^3 /uL (1.8-7.7) Lymph # (Auto) 0.4 10^3/uL L 10^ 3/uL (0.8-4.8) [place] # (Auto) 0.6 10^3/uL 10^3/ uL (0.2-0.9) Eos # (Auto) 0.0 10^3/uL 10^3/ uL (0.0-0.8) Baso # (Auto) 0.0 10^3/uL 10^3/ uL (0.0-0.1) Nucleated RBC % (a uto) 0.3 % % Nucleated RBCs # 0.0 /100WBC /100W BC Specimen Type Arterial Sample Site Brachial, left ABG pH 7.30 L (7.35-7.45) ABG pCO2 77.1 mmHg H* mmHg (35-45) ABG pO2 99.0 mmHg mmHg (80.0-100.0) ABG HCO3 37.6 mmol/L H mmo l/L (22-26) ABG O2 Saturation 96.6 ABG Base Excess 8.0 mmol/L H mmol /L (-2.0-2.0) Gee Test N/a A-a O2 Gradient 30.9 mmHg H mmHg (5-10) Hematocrit 43.5 % % (42-52) Hgb O2 Saturation 88.6 % L % (95-100) Carboxyhemoglobin 8.3 %THgb %THgb (0.4-20.1) Methemoglobin 0.0 % L % (0.4-1.5) Total Hemoglobin 14.2 g/dL g/dL (14-18) Sodium 142.0 mmol/L mmol /L 138 mmol/L mmol/L (131-143) (136-145) Potassium 4.0 mmol/L mmol/L 3.8 mmol/L mmol/L (3.5-5.0) (3.5-5.1) Glucose 114.0 mg/dL mg/dL 89 mg/dL mg/dL (70-115) (65-115) Ionized Calcium 1.1 mmol/L mmol/L (1.1-1.4) O2 Delivery Device Bipap FiO2 60.0 % % Order Booker ID Harkr Chloride 97 mmol/L L mmol/ L (98-107) Carbon Dioxide 32 mmol/L H mmol/ L (22-29) Anion Gap 12.8 (5-19) BUN 19 mg/dL mg/dL (8-23) Creatinine 1.2 mg/dL mg/dL (0.7-1.2) GFR Calculation 61.1 mL/min L mL/ min (90-130) Calculated Osmolal ity 288 mOsm/kg mOsm/ kg (285-295) Calcium 7.9 mg/dL L mg/dL (8.5-10.5) Total Bilirubin 0.2 mg/dL mg/dL (0.15-1.2) AST 13 U/L U/L (0-40) ALT 18 U/L U/L (0-41) Alkaline Phosphata se 67 IU/L IU/L (40-130) Troponin T Baselin e Troponin T 120 Min [place] Troponin T NT-Pro-B Natriuret Pep 1079 pg/mL H pg/m L (0-125) Total Protein 6.2 g/dL L g/dL (6.6-8.7) Albumin 3.6 g/dL g/dL (3.5-5.2) Globulin 2.6 g/dL g/dL (1.3-4.6) Urine Color Urine Appearance Urine pH Ur Specific Gravit y Urine Protein Urine Glucose (UA) Urine Ketones Urine Blood Urine Nitrate Urine Bilirubin Urine Urobilinogen Ur Leukocyte Jen ase Urine RBC Urine WBC Ur Squamous Epith Cells Amorphous Sediment Urine Bacteria 08/12/21 08/12/21 08/12/21 06:05 07:55 08:20 WBC RBC Hgb Hct MCV MCH MCHC RDW Plt Count MPV Neut % (Auto) Lymph % (Auto) [place] % (Auto) Eos % (Auto) Baso % (Auto) Neut # (Auto) Lymph # (Auto) [place] # (Auto) Eos # (Auto) Baso # (Auto) Nucleated RBC % (a uto) Nucleated RBCs # Specimen Type Sample Site ABG pH ABG pCO2 ABG pO2 ABG HCO3 ABG O2 Saturation ABG Base Excess Gee Test A-a O2 Gradient Hematocrit Hgb O2 Saturation Carboxyhemoglobin Methemoglobin Total Hemoglobin Sodium Potassium Glucose Ionized Calcium O2 Delivery Device FiO2 Order Booker ID Chloride Carbon Dioxide Anion Gap BUN Creatinine GFR Calculation Calculated Osmolal ity Calcium Total Bilirubin AST ALT Alkaline Phosphata se Troponin T Baselin e 46 ng/L H ng/L (0-15) Troponin T 120 Min [place] 45.38 ng/L H ng/L (0-15) Delta Troponin T -0.62 ABS# L ABS# (0-10) NT-Pro-B Natriuret Pep Total Protein Albumin Globulin Urine Color Yellow (Yellow) Urine Appearance Clear (CLEAR) Urine pH 5 (5-7) Ur Specific Gravit y 1.015 (1.005-1.030) Urine Protein 1+ H (Negative) Urine Glucose (UA) 2+ H (Normal) Urine Ketones Negative (Negative) Urine Blood Neg (Negative) Urine Nitrate Negative (Negative) Urine Bilirubin Neg (Negative) Urine Urobilinogen Norm mg/dL mg/dL (Negative) Ur Leukocyte Jen ase Negative (Negative) Urine RBC None /hpf /hpf (0-2) Urine WBC None /hpf /hpf (0-5) Ur Squamous Epith Cells None /hpf /hpf (0-5) Amorphous Sediment Not Reportable Urine Bacteria Trace /hpf /hpf (NONE) Discharge Plan Discharge Patient Disposition: Placed in Observation Clinical Impression: Acute exacerbation of chronic obstructive airways disease, CHF (congestive heart failure), Atrial fibrillation, Chronic kidney disease, stage II (mild), Coronary artery disease due to type 2 diabetes mellitus, Uncontrolled type 2 diabetes mellitus Condition: Stable Prescriptions: No Action furosemide 40 mg tablet 80 mg PO BID RF: 0 Pacerone 200 mg tablet 200 mg PO DAILY RF: 0 Vitamin B12 Gummies 1 - 2 tab PO DAILY RF: 0 budesonide 0.5 mg/2 mL Suspension For Nebulization 0.5 mg inhalation BID RF: 0 Perforomist 20 mcg/2 mL Solution For Nebulization 2 ml INHALATION BID RF: 0 Farxiga 10 mg tablet 10 mg PO DAILY RF: 0 Spiriva Respimat 1.25 mcg/actuation mist 2 puff inhalation DAILY RF: 0 potassium chloride 20 mEq tablet extended release 20 meq PO BID Qty: 0 RF: 0 Triple Antibiotic 3.5mg-400 unit- 5,000 unit/gram Ointment 1 applic topical DAILY Qty: 15 RF: 0 aspirin 81 mg Tablet,Delayed Release (Dr/Ec) 81 mg PO DAILY Qty: 30 RF: 0 metoprolol tartrate 25 mg Tablet 12.5 mg PO BID@0900,2100 Qty: 30 RF: 0 Augmentin 875-125 mg tablet 1 tab PO BID Qty: 6 RF: 0 prednisone 10 mg tablet 30 mg PO DAILY Qty: 30 RF: 0 trazodone 50 mg Tablet 50 mg PO BEDTIME@2100 RF: 0 methimazole 5 mg tablet 2.5 mg PO QAM RF: 0 rosuvastatin 10 mg tablet 10 mg PO DAILY RF: 0 Daliresp 500 mcg tablet 500 mcg PO QAM RF: 0 Januvia 50 mg tablet 50 mg PO QAM RF: 0 Lantus Solostar U-100 Insulin 100 unit/mL (3 mL) insulin pen 20 unit SUBCUT BEDTIME RF: 0 omeprazole 40 mg capsule,delayed release(DR/EC) 40 mg PO QAM RF: 0 Jardiance 25 mg tablet 25 mg PO DAILY RF: 0 Entresto 24-26 mg Tablet 1 tab PO BID RF: 0 Referrals: Nasreen Gomez PA [Primary Care Provider] - Coding Level of Care Code ED Informatics Educator for Chg Fwd Exam Comprehensive
[2021-08-12 06:53] LABS: Basophils % 0.6 %; Eosinophils % 0.6 %; Hematocrit 45.2 % (42.0-52.0); Hemoglobin 13.8 g/dL (11.7-16.6); Lymphocytes # 0.4 10^3/uL (0.8-4.8); Lymphocytes % 6.2 %; Mean Corpuscular HGB Conc 30.5 g/dL (30.0-36.0); Mean Corpuscular Hemoglobin 29.7 pg (28.0-34.0); Mean Corpuscular Volume 97.2 fl (80-94); Mean Platelet Volume 10.4 fL (7.4-10.4); Monocytes # 0.6 10^3/uL (0.2-0.9); Monocytes % 8.5 %; Neutrophils % 82.6 %; Nucleated Red Blood Cells % 0.3 %; Platelet Count 164 10^3/cmm (130-400); Red Blood Count 4.65 10^6/uL (4.1-5.3); Red Cell Distribution Width 18.6 % (12.1-15.1); White Blood Count 7.1 10^3/uL (4.0-10.0)
[2021-08-12 07:15] LABS: Troponin(5th) Baseline 46 ng/L (0-15)
[2021-08-12 07:20] LABS: Slide Review Slide Review Perform
[2021-08-12 07:25] LABS: Alanine Aminotransferase 18 U/L (0-41); Albumin Level 3.6 g/dL (3.5-5.2); Alkaline Phosphatase 67 IU/L (40-130); Anion Gap 12.8 (5-19); Aspartate Amino Transferase 13 U/L (0-40); Blood Urea Nitrogen 19 mg/dL (8-23); Calcium 7.9 mg/dL (8.5-10.5); Carbon Dioxide 32 mmol/L (22-29); Chloride 97 mmol/L (98-107); Globulin 2.6 g/dL (1.3-4.6); Glomerular Filtration Rate 61.1 mL/min (90-130); Glucose 89 mg/dL (65-115); NT Pro B Type Natriuretic Pept 1079 pg/mL (0-125); Osmolality Calculated 288 mOsm/kg (285-295); Potassium 3.8 mmol/L (3.5-5.1); Sodium 138 mmol/L (136-145); Total Bilirubin 0.2 mg/dL (0.15-1.2); Total Protein 6.2 g/dL (6.6-8.7)
[2021-08-12] MEDS: FUROsemide 10 mg/mL SDV 10mL 80 MG IVP ×2 (07:49→18:04)
--- NOTE | 2021-08-12 08:02 | ECG_ITS ---
[facility] Test Date: 2021-08-12 Pat Name: Nagi Cuellar Department: Room: Gender: Male Dormitory Counselor: : 1955 Requested By: Nagi Arita Order Number: [id number] Dominguez MD: Krystal Meneses M.D. Measurements Intervals [place] Rate: 80 P: 32 MD: 172 QRS: 59 QRSD: 101 T: 62 QT: 376 QTc: 436 Interpretive Statements SINUS RHYTHM INCOMPLETE RIGHT BUNDLE BRANCH BLOCK [90+ ms QRS DURATION, TERMINAL R IN V1/V2, 40+ ms S IN I/aVL/V4/V5/V6] Compared to ECG 08/02/2021 07:53:38 ST (T wave) deviation no longer present Electronically Signed On 08-13-2021 19:44:09 CDT by Krystal Meneses M.D. [email or web address] [email or web address] centerTMS [facility].[employer]/store/OM/[id number]
[2021-08-12 08:07] LABS: Add Urine Microscopic? YES; Bilirubin Urine Neg (Negative); Blood Urine Neg (Negative); Glucose Urine UA 2+ (Normal); Ketones Urine Negative (Negative); Leukocyte Esterase Urine Negative (Negative); Nitrate Urine Negative (Negative); Protein Urine 1+ (Negative); Specific Gravity, Urine 1.015 (1.005-1.030); Urine Appearance Clear (CLEAR); Urine Color Yellow (Yellow); Urobilinogen Urine Norm (Negative); pH Urine 5 (5-7)
[2021-08-12 08:08] LABS: Add Urine Culture? No; Bacteria Urine TRACE /hpf
[2021-08-12 08:53] LABS: Troponin 5 2HR 45.38 ng/L (0-15)
[2021-08-12 08:59] LABS: Troponin 5 2HR Delta -0.62 ABS# (0-10)
--- NOTE | 2021-08-12 10:19 | PC.PHAR ---
PT STATES HIS GIRLFRIEND KAYLYN HELPS HIM WITH HIS MEDICATIONS-KAYLYN STATES THEY HAD A NURSE COME SET UP HIS MEDS ONCE BUT WASNT SURE WHERE SHE WAS FROM-CALLED [facility] FROM [facility] STATES THEY HAD A REFERRAL FOR HIM BUT THEY DONT HAVE A MED LIST FOR THE PT STATES THEY HAVENT SEEM HIM-PT STATES HE WOULD LIKE TO HAVE SOMEONE HELP HIM WITH HIS MEDICATIONS STATES HIS GIRLFRIEND HAS HER OWN MEDICATIONS TO TAKE CARE OF-MEDICATIONS ENTERED IS WHAT KAYLYN STATES THE PT TAKES-[facility]S THAT WERE DCED WHEN PT WAS HERE [facility]ST [facility] FILLED AMLODIPINE 5MG ON ,DIGOXIN 125MCG FILLED ON 08/11/21 DCED ON 07/20/21 -,PROPRANOLOL 40MG FILLED ON 08/07/21,BUMETANIDE 2MG FILLED ON 07/20/21 30D/S-NOTES ARE MADE IN THE PHARMACY COMMENTS
--- NOTE | 2021-08-12 12:02 | ECG_ITS ---
[facility] Test Date: 2021-08-12 Pat Name: Nagi Cuellar Department: Room: 253 Gender: Male Home Builder: : 1955 Requested By: Nagi Arita Order Number: [id number] Dominguez MD: Krystal Meneses M.D. Measurements Intervals [place] Rate: 94 P: 58 NV: 197 QRS: 42 QRSD: 107 T: 66 QT: 367 QTc: 461 Interpretive Statements SINUS RHYTHM POSSIBLE LEFT ATRIAL ENLARGEMENT [-0.1mV P-WAVE IN V1/V2] INDETERMINATE AXIS INCOMPLETE RIGHT BUNDLE BRANCH BLOCK [90+ ms QRS DURATION, TERMINAL R IN V1/V2, 40+ ms S IN I/aVL/V4/V5/V6] Compared to ECG 08/12/2021 08:15:09 Indeterminate axis now present Electronically Signed On 08-13-2021 19:41:11 CDT by Krystal Meneses M.D. [email or web address].[employer]/store/OM/[id number]
[2021-08-12 12:06] LABS: Glucose Point of Care 199 mg/dL (70-110)
--- NOTE | 2021-08-12 13:04 | PM.HP ---
Providers/Chief Complaint Admitting Physician: Mikie Berry MD Primary Care Provider: Nasreen Gomez Chief Complaint: SOB History of Present Illness Nagi Cuellar is a 65 year old male who presents today with shortness of breath and increased swelling. He was recently hospitalized for chest pain, low blood pressure from August 02 two August 05. At that time he got an angiogram which did not demonstrate any flow-limiting stenosis. Echocardiogram was performed demonstrating preserved EF and no wall motion abnormalities. Prednisone was initiated for concerns of low blood pressure and possibility of adrenal insufficiency. Previous problems on last admission included significant acute kidney injury. He reports he has been more short of breath last several days. No significant chest pain. Increased edema. Reports he is taking his medicine. He also reports he has been using his BiPAP at home. No fever. Review of Systems General: Reports: 10 or more systems reviewed and unremarkable except in HPI and below Const: Denies: fever(s) Eyes: Denies: change in vision ENMT: Denies: throat pain Card: Reports: swelling of feet/ankles and dyspnea on exertion; Denies: chest pain Resp: Reports: dyspnea GI: Denies: abdominal pain : Denies: flank pain Musc: Denies: neck pain Skin/Breast: Denies: rash Neuro: Denies: headache(s) Psych: Denies: anxiety Endo: Denies: polyuria Dov/Lymph: Denies: easy bruising All/Imm: Denies: urticaria Medications/Allergies Home Medications Medication Instructions Recorded Confirmed Last Taken Type trazodone 50 mg PO BEDTIME 11/20/19 08/12/21 07/17/21 History Daliresp 500 mcg PO QAM 01/15/21 08/12/21 07/17/21 History methimazole 2.5 mg PO QAM 01/15/21 08/12/21 07/17/21 History rosuvastatin 10 mg PO DAILY 01/15/21 08/12/21 07/17/21 History Entresto 1 tab PO BID 07/18/21 08/12/21 07/17/21 History Jardiance 25 mg PO QAM 07/18/21 08/12/21 07/17/21 History omeprazole 40 mg PO QAM 07/18/21 08/12/21 07/17/21 History insulin glargine 100 unit/mL (3 20 unit SUBCUT BEDTIME ml 07/23/21 08/12/21 08/11/21 History mL) subcutaneous pen sitagliptin 50 mg tablet 50 mg PO QAM tab 07/23/21 08/12/21 Unknown History Farxiga 10 mg PO QAM 08/02/21 08/12/21 Unknown History Spiriva Respimat 2 puff INHALATION DAILY 08/02/21 08/12/21 Unknown History Vitamin B12 Gummies 1 - 2 tab PO DAILY 08/02/21 08/12/21 Unknown History formoterol fumarate [Perforomist] 2 ml INHALATION BID 08/02/21 08/12/21 Unknown History elzqfjgo-vvodicelzXx-duorenhhN 1 applic TOPICAL DAILY #15 g 08/05/21 08/12/21 Unknown Rx [Triple Antibiotic] amiodarone 200 mg tablet 200 mg PO DAILY tab 08/10/21 08/12/21 Unknown History furosemide 40 mg tablet 80 mg PO BID tab 08/10/21 08/12/21 Unknown History aspirin 81 mg PO QAM 08/12/21 08/12/21 Unknown History magnesium 1 tab PO DAILY 08/12/21 08/12/21 Unknown History metoprolol tartrate 12.5 mg PO BID 08/12/21 08/12/21 Unknown History potassium chloride 20 meq PO BID 08/12/21 08/12/21 Unknown History prednisone See Rx Instructions .ROUTE .COMPLEX 08/12/21 08/12/21 Unknown History Allergies Allergy/AdvReac Type Severity Reaction Status Date / Time No Known Allergies Allergy Verified 08/12/21 10:17 PFSH Acute PFSH: Medical History Acute exacerbation of chronic obstructive airways disease Acute hypercapnic respiratory failure Atrial fibrillation Atrial fibrillation with rapid ventricular response CAD (coronary artery disease) Chest pain CHF (congestive heart failure) Chronic respiratory failure with hypoxia Congestive heart failure COPD (chronic obstructive pulmonary disease) Cor pulmonale Diabetes Elevated troponin I level Heart attack Hypertension Hypoxia Nicotine addiction DAYNE (obstructive sleep apnea) Pneumonia Surgical History H/O hernia repair Family History Mother Lung disease COPD Sister Cancer Social History Quit status (tobacco): considering quitting Second hand smoke exposure: Yes Smoking risk assessment/counseling performed?: Yes Alcohol intake: current Alcohol intake frequency: holidays/special occasions only Desire information about alcohol rehabilitation?: No Counseling given: No Desire information about substance/drug rehabilitation?: No Counseling given: No Lives independently: Yes Household members: none Marital status: Single Current occupational status: disabled and 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 He is currently on CPAP HEENT: CPAP noted. Neck is supple no lymphadenopathy thyromegaly Cardiovascular regular rate and rhythm without murmur Lungs diminished breath sounds bilaterally but no wheezes Abdomen is soft with positive bowel sounds Extremities 1+ bilateral edema exam is deferred Neuro no obvious focal deficits. Data : 08/12/21 06:05 08/12/21 06:05 Other data: ABG demonstrates pH 7.3, PCO2 of seventy-seven, PO2 of ninety-nine Calcium 7.9, LFTs normal, troponin forty-six with repeat of forty-five Urinalysis negative Chest x-ray bibasilar patchy infiltrates similar to previous Recent Covid PCR - July 05 EKG demonstrated sinus rhythm, right bundle branch block A&P Assessment and plan (1) CHF (congestive heart failure): Appears to have exacerbation of CHF, EF preserved He received 80 mg of Lasix IV in the emergency department We will continue eighty IV here twice daily. Fluid restriction 1200 cc a day Zaroxolyn 2.5 mg p.o. daily Status: Acute (2) COPD (chronic obstructive pulmonary disease): Continue pulmonary toilet He is currently on a prednisone taper. 10 mg daily. Status: Acute (3) Atrial fibrillation: Currently in sinus rhythm Continue amiodarone Not a candidate for full anticoagulation secondary to history of GI bleed Status: Acute (4) Uncontrolled type 2 diabetes mellitus: Sliding scale insulin Status: Acute (5) Chronic kidney disease, stage II (mild): Renal function currently stable Status: Acute Additional A&P Information Hyperthyroidism. Continue methimazole Multiple other medical problems as outlined in his past medical history Full code Heparin for DVT prophylaxis Attestations Medical Necessity Statement*: Will need less than two midnight stay for evaluation and treatment of acute CHF. Time Spent in Patient Care: Greater than 35 minutes Coding Level of Care Code Acute Financial Services Professional for g Fwd Diagnoses CHF (congestive heart failure) I50.9 COPD (chronic obstructive pulmonary disease) J44.9 Atrial fibrillation I48.91 Uncontrolled type 2 diabetes mellitus E11.65 Chronic kidney disease, stage II (mild) N18.2
[2021-08-12] MEDS: heparin 5,000 unit/mL INJ 1 mL 5000 UNIT SUBCUT ×2 (14:11→23:53)
[2021-08-12] MEDS: predniSONE 10 mg Tablet PO (14:11)
[2021-08-12] MEDS: metOLazone 5 MG Tablet 2.5 MG PO (14:11)
[2021-08-12 14:18] LABS: Troponin 5 6HR 80.64 ng/L (0-15)
[2021-08-12 14:21] LABS: Troponin 5 6HR Delta 34.64 ng/L (0-12)
[2021-08-12] MEDS: ipratropium-albuterol 3 mL Neb INHALATION ×2 (14:22→20:02)
[2021-08-12 17:20] LABS: Glucose Point of Care 307 mg/dL (70-110)
[2021-08-12] MEDS: insulin lispro 100 unit/1 mL SUBCUT ×2 (18:01→21:11)
[2021-08-12] MEDS: metoprolol tartrate 25 mg Tablet 12.5 MG PO (18:01)
[2021-08-12] MEDS: potassium chloride ER 20 mEq Tablet PO (18:01)
[2021-08-12 21:02] LABS: Glucose Point of Care 164 mg/dL (70-110)
[2021-08-12] MEDS: insulin glargine 100 units/1 mL 20 UNIT SUBCUT (21:11)
[2021-08-12] MEDS: guaiFENesin-dextromethorphan UDC 10 mL 5 ML PO (23:47)
[2021-08-13] VITALS (16 sets, daily range): BP systolic 107–118; BP diastolic 51–72; PULSE 76–113; RESP 15–26; TEMP 36.4–37.4; O2SAT 74–96
[2021-08-13] MEDS: ipratropium-albuterol 3 mL Neb INHALATION ×4 (02:45→21:53)
[2021-08-13] MEDS: aspirin 81 mg EC Tablet PO (05:30)
[2021-08-13] MEDS: FUROsemide 10 mg/mL SDV 10mL 80 MG IVP ×2 (05:30→18:09)
[2021-08-13] MEDS: pantoprazole DR 40 mg Tablet PO (05:30)
[2021-08-13] MEDS: roflumilast 500 mcg Tablet PO (05:30)
[2021-08-13 05:59] LABS: Basophils % 0.2 %; Hematocrit 47.2 % (42.0-52.0); Hemoglobin 14.4 g/dL (11.7-16.6); Lymphocytes # 0.3 10^3/uL (0.8-4.8); Lymphocytes % 2.9 %; Mean Corpuscular HGB Conc 30.5 g/dL (30.0-36.0); Mean Corpuscular Hemoglobin 29.8 pg (28.0-34.0); Mean Corpuscular Volume 97.7 fl (80-94); Mean Platelet Volume 9.3 fL (7.4-10.4); Monocytes # 0.8 10^3/uL (0.2-0.9); Monocytes % 8.7 %; Neutrophils # 8.01 10^3/uL (1.8-7.7); Neutrophils % 87.3 %; Nucleated Red Blood Cells % 0 %; Platelet Count 276 10^3/cmm (130-400); Red Blood Count 4.83 10^6/uL (4.1-5.3); Red Cell Distribution Width 18.5 % (12.1-15.1); White Blood Count 9.2 10^3/uL (4.0-10.0)
[2021-08-13 06:25] LABS: Glucose Point of Care 120 mg/dL (70-110)
[2021-08-13 06:36] LABS: Alanine Aminotransferase 16 U/L (0-41); Albumin Level 3.6 g/dL (3.5-5.2); Alkaline Phosphatase 62 IU/L (40-130); Anion Gap 14.8 (5-19); Aspartate Amino Transferase 11 U/L (0-40); Blood Urea Nitrogen 28 mg/dL (8-23); Calcium 8.2 mg/dL (8.5-10.5); Carbon Dioxide 37 mmol/L (22-29); Chloride 90 mmol/L (98-107); Globulin 2.9 g/dL (1.3-4.6); Glomerular Filtration Rate 61.1 mL/min (90-130); Glucose 61 mg/dL (65-115); Osmolality Calculated 289 mOsm/kg (285-295); Potassium 3.8 mmol/L (3.5-5.1); Sodium 138 mmol/L (136-145); Total Bilirubin 0.2 mg/dL (0.15-1.2); Total Protein 6.5 g/dL (6.6-8.7)
--- NOTE | 2021-08-13 09:20 | PM.PN ---
Subjective Subjective: Interval history: Nagi reports he feels a little bit better today. Still short of breath. Still swollen. Medications: Reviewed: Yes Vitals/I&O/Wt Last Vital Signs Temp 98.3 F 08/13/21 07:45 Pulse 113 H 08/13/21 09:19 Resp 20 H 08/13/21 08:08 BP 117/72 08/13/21 07:45 Pulse Ox 96 08/13/21 09:19 08/12/21 08/13/21 08/13/21 22:59 06:59 14:59 Intake Total 720 / 1080 240 / 1320 480 / 480 Output Total 2675 / 2675 600 / 3275 1350 / 1350 Balance -1955 / -1595 -360 / -1955 -870 / -870 Weight last 48 hrs Weight 95.164 kg Weight 92.986 kg Physical Exam Narrative: EXAM NARRATIVE: General exam no distress. 2.8 L out yesterday Neck is supple no lymphadenopathy thyromegaly Cardiovascular regular rate and rhythm without murmur Lungs diminished breath sounds bilaterally but no wheezes. Some bibasilar crackles are noted. Abdomen is soft with positive bowel sounds Extremities 1+ bilateral edema Data : 08/13/21 05:40 08/13/21 05:40 A&P Assessment and plan (1) CHF (congestive heart failure): Appears to have exacerbation of CHF, EF preserved He received 80 mg of Lasix IV in the emergency department Continue 80 mg of Lasix twice daily Continue Zaroxolyn 2.5 mg daily Fluid restriction 1200 cc a day Possible discharge in 1 to 2 days Status: Acute (2) COPD (chronic obstructive pulmonary disease): Continue pulmonary toilet He is currently on a prednisone taper. 10 mg daily currently. During his last hospital stay there was concern for potential adrenal insufficiency secondary to frequent steroid courses and marked hypotension. Slow taper should occur from 10 mg. Tomorrow will be on 7.5 mg daily and this likely should continue for at least 7 days before going down to 5 mg. Status: Acute (3) Atrial fibrillation: Currently in sinus rhythm Continue amiodarone Not a candidate for full anticoagulation secondary to history of GI bleed Status: Acute (4) Uncontrolled type 2 diabetes mellitus: Sliding scale insulin Continue patient's long-acting insulin Status: Acute (5) Chronic kidney disease, stage II (mild): Renal function currently stable Status: Acute Additional A&P Information Hyperthyroidism. Continue methimazole Recent treatment for pneumonia, last x-ray residual infiltrate but improved and appears to be clinically resolved. Multiple other medical problems as outlined in his past medical history Full code Heparin for DVT prophylaxis Attestations Medical Necessity Statement*: Needs continued hospitalization for exacerbation of CHF requiring further diuresis as he is not back to his baseline of 4 L oxygen and still exhibits fluid overload. 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
[2021-08-13] MEDS: metoprolol tartrate 25 mg Tablet 12.5 MG PO ×2 (09:24→18:09)
[2021-08-13] MEDS: potassium chloride ER 20 mEq Tablet PO ×2 (09:24→18:09)
[2021-08-13] MEDS: metOLazone 5 MG Tablet 2.5 MG PO (09:24)
[2021-08-13] MEDS: amiodarone 200 mg Tablet PO (09:24)
[2021-08-13] MEDS: atorvastatin 40 mg Tablet PO (09:24)
[2021-08-13] MEDS: predniSONE 10 mg Tablet PO (09:24)
--- NOTE | 2021-08-13 11:11 | PC.CHAP ---
Pastoral Care Encounter/Spiritual Assessment Type of Contact [] Declined satellite dish repairer visit [] Patient/Family/Request visit [] Outpatient visit [] Follow-up visit [] Physician referral [] Code/Alert [x] Routine visit [] Staff referral [] Actively dying [] Patient sleeping [] Family support [] [] Out of room [] Palliative care [] [] Receiving care in room [] Pre-surgical visit [] Trauma [] Long length of stay [] ICU visit [] Other: Relational/Emotional Strength [] Patient feels connected with others/family/visitors/staff [] Distress [] Loneliness/isolation [] Abandonment Spirituality of Patient [] Person of Margret [] Attends Evangelical of their Margret [] Believes in Prayer [] Reads Bible or Taoist materials [] There are Spiritual issues to be addressed State Editor Interventions [x] Prayer [x] Active listening [x] Non-anxious presence [x] Spiritual/emotional support [] Crisis/trauma care [] Spiritual counseling [] Bereavement support [] Provided bereavement packet [] Provided Bible/devotional materials [] Provided toy/stuffed animal, coloring book to patient or family member [] Provided Communion [] Anointing/[place] [] Salvation [x] Completed spiritual assessment [] Other: Impact on Illness or Injury [] Angry [] Fearful [] Anxious [] Often cries [] Exhaustion [] Unable to work [] Unable to attend anglican [] Unable to walk/stand [] Unable to read [] Unable to drive [] Unable to eat/drink [] Unable to sleep [] Unable to be with family [] Patient intubated [] Other: Summary patient setting on side of bed... removed his breaking devise ... stated it hurts his head.. so periodically he removes it Time spent with patient 10 min
[2021-08-13 11:13] LABS: Glucose Point of Care 290 mg/dL (70-110)
[2021-08-13] MEDS: benzonatate 100 mg Capsule PO (11:23)
[2021-08-13] MEDS: insulin lispro 100 unit/1 mL SUBCUT (12:55)
[2021-08-13] MEDS: guaiFENesin-dextromethorphan UDC 10 mL 5 ML PO (12:57)
[2021-08-13] MEDS: heparin 5,000 unit/mL INJ 1 mL 5000 UNIT SUBCUT (13:01)
--- NOTE | 2021-08-13 14:31 | PC.RESP ---
PATIENT IS CURRENTLY ACTIVE IN PULMONARY REHAB.
[2021-08-13 16:57] LABS: Glucose Point of Care 69 mg/dL (70-110)
[2021-08-13 17:30] LABS: Glucose Point of Care 168 mg/dL (70-110)
[2021-08-13 20:36] LABS: Glucose Point of Care 232 mg/dL (70-110)
[2021-08-13] MEDS: insulin glargine 100 units/1 mL 10 UNIT SUBCUT (21:03)
[2021-08-14] VITALS (20 sets, daily range): BP systolic 93–124; BP diastolic 55–79; PULSE 81–143; RESP 18–28; TEMP 36.8–37.2; O2SAT 3–96
[2021-08-14] MEDS: heparin 5,000 unit/mL INJ 1 mL 5000 UNIT SUBCUT (01:57)
[2021-08-14] MEDS: ipratropium-albuterol 3 mL Neb INHALATION ×4 (03:15→20:12)
--- NOTE | 2021-08-14 03:47 | ECG_ITS ---
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 Measurements Intervals [place] Rate: 114 P: UT: QRS: 11 QRSD: 98 T: 29 QT: 304 QTc: 419 Interpretive Statements ATRIAL FLUTTER/TACHYCARDIA WITH RAPID VENTRICULAR RESPONSE INDETERMINATE AXIS INCOMPLETE RIGHT BUNDLE BRANCH BLOCK [90+ ms QRS DURATION, TERMINAL R IN V1/V2, 40+ ms S IN I/aVL/V4/V5/V6] MODERATE ST DEPRESSION [0.05+ mV ST DEPRESSION] Compared to ECG 08/12/2021 13:45:07 ST (T wave) deviation now present Sinus rhythm no longer present Electronically Signed On 08-14-2021 21:39:40 CDT by Brian Davis M.D. [id number]
[2021-08-14] MEDS: ALPRAZolam 0.5 mg Tablet 0.25 MG PO (03:58)
[2021-08-14] MEDS: metoprolol tartrate 1 mg/1 mL SDV 5 mL 5 MG IVP ×2 (03:59→06:21)
[2021-08-14 05:40] LABS: Anion Gap 11.4 (5-19); Blood Urea Nitrogen 28 mg/dL (8-23); Calcium 9.1 mg/dL (8.5-10.5); Chloride 83 mmol/L (98-107); Glomerular Filtration Rate 75.5 mL/min (90-130); Glucose 200 mg/dL (65-115); Magnesium 1.7 mg/dL (1.7-2.3); Osmolality Calculated 291 mOsm/kg (285-295); Potassium 3.4 mmol/L (3.5-5.1); Sodium 135 mmol/L (136-145)
[2021-08-14 05:51] LABS: Carbon Dioxide 44 mmol/L (22-29)
[2021-08-14] MEDS: roflumilast 500 mcg Tablet PO (06:20)
[2021-08-14] MEDS: aspirin 81 mg EC Tablet PO (06:21)
[2021-08-14] MEDS: pantoprazole DR 40 mg Tablet PO (06:21)
[2021-08-14 06:35] LABS: Glucose Point of Care 164 mg/dL (70-110)
--- NOTE | 2021-08-14 08:07 | XRR_ITS ---
PROCEDURE INFORMATION: Exam: XR Chest Exam date and time: 08/14/2021 8:07 AM Age: 65 years old Clinical indication: Shortness of breath; Additional info: Hypoxia TECHNIQUE: Imaging protocol: XR of the chest. Views: 1 view. Total images: 1 COMPARISON: CR XR chest 1V portable [id number] 08/12/2021 6:09 AM FINDINGS: Lungs: Bibasilar pulmonary opacities are again noted and appear unchanged. Pleural spaces: Unremarkable. No pleural effusion. No pneumothorax. Heart/Mediastinum: Heart size is stable when compared to the prior exam. Bones/joints: Osseous structures are unchanged from the prior exam. XR/XR chest 1V portable [id number] IMPRESSION: Bibasilar pulmonary opacities are again noted and appear unchanged. Radiation Dose CTDIVOL = (mGy): DLP = (mGy-cm)
[2021-08-14] MEDS: methIMAzole 5 MG Tablet 2.5 MG PO (08:34)
[2021-08-14] MEDS: potassium chloride ER 20 mEq Tablet PO ×2 (08:35→19:07)
[2021-08-14] MEDS: metOLazone 5 MG Tablet 2.5 MG PO (08:35)
[2021-08-14] MEDS: atorvastatin 40 mg Tablet PO (08:35)
[2021-08-14] MEDS: insulin lispro 100 unit/1 mL SUBCUT ×4 (08:40→20:51)
[2021-08-14 08:56] LABS: ABG PH Result 7.42 (7.35-7.45); Arterial Blood Gas Hematocrit 44.9 % (42-52); Base Excess ABG 21.6 mmol/L (-2.0-2.0); Blood Gas Allen Test Pos; Blood Gas Operator Identificat MONRO; Blood Gas Sample Site Brachial, left; Blood Gas Sample Type Arterial; HCO3 ABG 51.3 mmol/L (22-26); Oxygen Device NC; PO2 ABG 42.8 mmHg (80.0-100.0)
[2021-08-14 08:57] LABS: ABG PCO2 78.5 mmHg (35-45)
[2021-08-14] MEDS: predniSONE 5 mg Tablet 7.5 MG PO (09:09)
[2021-08-14 11:21] LABS: Glucose Point of Care 204 mg/dL (70-110)
--- NOTE | 2021-08-14 12:28 | P.PN_ITS ---
Subjective Subjective: Interval history: Patient was seen and examined this morning, he did not use BiPAP overnight stating that mask is compressing his nose bone and cheeks. This morning ABG was posted which showed severe hypoxia on 6 L nasal cannula he was put on BiPAP I requested RT to switch him to heated high flow to give him a break from BiPAP requested chest x-ray, D-dimer On BiPAP 40% he was saturating 91% Vitals/I&O/Wt Last Vital Signs Temp 98.2 F 08/14/21 12:00 Pulse 88 08/14/21 12:02 Resp 20 H 08/14/21 12:02 BP 104/63 08/14/21 12:00 Pulse Ox 95 08/14/21 12:02 08/13/21 08/14/21 08/14/21 22:59 06:59 14:59 Intake Total 480 / 1080 Output Total 2325 / 4803 1825 / 6644 Balance -1845 / -3745 -1825 / -5570 Physical Exam Narrative: EXAM NARRATIVE: Patient was sitting at the bedside with BiPAP FiO2 40% However symptoms improved afterwards No chest pain EOMI, PERRLA No active cyanosis or gangrene Bilateral diminished breath sounds with mild rhonchi at the bases Abdomen soft No audible wheezing Patient does have conversational dyspnea No neurological deficits Data : 08/13/21 05:40 08/14/21 04:20 A&P Assessment and plan (1) Acute exacerbation of chronic obstructive airways disease: Status: Acute (2) CHF (congestive heart failure): Status: Acute (3) Atrial fibrillation: Status: Acute (4) Chronic kidney disease, stage II (mild): Status: Acute (5) Uncontrolled type 2 diabetes mellitus: Status: Acute (6) Coronary artery disease due to type 2 diabetes mellitus: Status: Acute (7) Nicotine addiction: Status: Acute Additional A&P Information Acute on chronic hypoxia COPD exacerbation Chronic kidney disease stage II Worsening of hypoxia Full code Pneumonia Plan Acute on chronic hypoxic respiratory failure Worsening hypoxia ABG revealed severe hypoxia transition to heated high flow patient is not able tolerate BiPAP for now because of mask pressure on his face D-dimer unremarkable No active chest pain nausea or vomiting Concern for hospital-acquired pneumonia chest x-ray showing persistent opacitie s, will escalate his antibiotics Full code Repeat ABG later today Preserved ejection fraction without acute exacerbation, clinically looks euvolemic, preserved ejection fraction as per previous echo, I will discontinue Lasix for now his blood pressure is also soft this morning DVT prophylaxis Lovenox, discontinue heparin Cardiac diet Attestations Medical Necessity Statement*: Continue medical management for worsening hypoxia will need continued hospitalization Time Spent in Patient Care: 16 - 35 minutes Coding Level of Care Code Acute Psychology Department Chair for Pacheco Fwd Diagnoses Acute exacerbation of chronic obstructive airways disease J44.1 CHF (congestive heart failure) I50.9 Atrial fibrillation I48.91 Chronic kidney disease, stage II (mild) N18.2 Uncontrolled type 2 diabetes mellitus E11.65 Coronary artery disease due to type 2 diabetes mellitus E11.59; I25.10 Nicotine addiction F17.200
[2021-08-14] MEDS: enoxaparin 40 mg/0.4 mL Syringe SUBCUT (15:11)
[2021-08-14] MEDS: cefepime 2,000 MG in sodium chloride 0.9% (plus) 50 ML 100 MG IV (15:11)
[2021-08-14 17:10] LABS: Glucose Point of Care 351 mg/dL (70-110)
[2021-08-14] MEDS: metoprolol tartrate 25 mg Tablet 12.5 MG PO (19:07)
[2021-08-14 20:07] LABS: Glucose Point of Care 331 mg/dL (70-110)
[2021-08-14] MEDS: insulin glargine 100 units/1 mL 15 UNIT SUBCUT (20:48)
[2021-08-15] VITALS (15 sets, daily range): BP systolic 111–138; BP diastolic 68–76; PULSE 74–90; RESP 16–24; TEMP 36.4–36.9; O2SAT 91–97
[2021-08-15] MEDS: cefepime 2,000 MG in sodium chloride 0.9% (plus) 50 ML 100 MG IV ×2 (00:13→12:31)
[2021-08-15] MEDS: guaiFENesin-dextromethorphan UDC 10 mL 5 ML PO (01:33)
[2021-08-15] MEDS: ipratropium-albuterol 3 mL Neb INHALATION ×4 (02:04→20:28)
[2021-08-15 02:46] LABS: Glucose Point of Care 43 mg/dL (70-110)
[2021-08-15 02:46] LABS: Glucose Point of Care 148 mg/dL (70-110)
[2021-08-15] MEDS: methIMAzole 5 MG Tablet 2.5 MG PO (05:01)
[2021-08-15] MEDS: pantoprazole DR 40 mg Tablet PO (05:01)
[2021-08-15] MEDS: levoFLOXacin 750 mg Tablet PO (05:02)
[2021-08-15] MEDS: roflumilast 500 mcg Tablet PO (05:03)
[2021-08-15] MEDS: aspirin 81 mg EC Tablet PO (05:03)
[2021-08-15 05:12] LABS: Basophils % 0.2 %; Eosinophils % 0.2 %; Hematocrit 42.4 % (42.0-52.0); Hemoglobin 13.1 g/dL (11.7-16.6); Lymphocytes # 0.3 10^3/uL (0.8-4.8); Lymphocytes % 4.7 %; Mean Corpuscular HGB Conc 30.9 g/dL (30.0-36.0); Mean Corpuscular Volume 97.2 fl (80-94); Monocytes # 0.4 10^3/uL (0.2-0.9); Neutrophils # 5.51 10^3/uL (1.8-7.7); Neutrophils % 87.1 %; Nucleated Red Blood Cells % 0 %; Platelet Count 222 10^3/cmm (130-400); Red Blood Count 4.36 10^6/uL (4.1-5.3); Red Cell Distribution Width 17.7 % (12.1-15.1); White Blood Count 6.3 10^3/uL (4.0-10.0)
[2021-08-15 05:40] LABS: Blood Urea Nitrogen 35 mg/dL (8-23); Calcium 8.5 mg/dL (8.5-10.5); Carbon Dioxide 35 mmol/L (22-29); Chloride 88 mmol/L (98-107); Glomerular Filtration Rate 75.5 mL/min (90-130); Glucose 188 mg/dL (65-115); Osmolality Calculated 291 mOsm/kg (285-295); Sodium 134 mmol/L (136-145)
[2021-08-15 05:41] LABS: Anion Gap 15.2 (5-19)
[2021-08-15 05:42] LABS: Potassium 4.2 mmol/L (3.5-5.1)
[2021-08-15] MEDS: calcium carbonate 500 mg Chew Tablet PO (05:53)
[2021-08-15 06:03] LABS: ABG PH Result 7.36 (7.35-7.45); Arterial Blood Gas Hematocrit 41.1 % (42-52); Base Excess ABG 17.7 mmol/L (-2.0-2.0); Blood Gas Allen Test Pos; Blood Gas Sample Site Radial, right; Blood Gas Sample Type Arterial; HCO3 ABG 47.6 mmol/L (22-26); HGB O2 Sat 94.9 % (95-100); Methemoglobin 0.9 % (0.4-1.5); Oxygen Device HAG; PO2 ABG 88.7 mmHg (80.0-100.0); Total Hemoglobin 13.4 g/dL (14-18)
[2021-08-15 06:32] LABS: Glucose Point of Care 164 mg/dL (70-110)
[2021-08-15] MEDS: insulin lispro 100 unit/1 mL SUBCUT ×3 (08:05→17:55)
[2021-08-15] MEDS: potassium chloride ER 20 mEq Tablet PO ×2 (08:06→17:55)
[2021-08-15] MEDS: atorvastatin 40 mg Tablet PO (08:06)
[2021-08-15] MEDS: predniSONE 5 mg Tablet 7.5 MG PO (08:09)
[2021-08-15] MEDS: metoprolol tartrate 25 mg Tablet 12.5 MG PO ×2 (08:09→17:53)
[2021-08-15 09:31] LABS: ABG PCO2 83.8 mmHg (35-45)
[2021-08-15 11:04] LABS: Glucose Point of Care 151 mg/dL (70-110)
[2021-08-15] MEDS: enoxaparin 40 mg/0.4 mL Syringe SUBCUT (12:29)
--- NOTE | 2021-08-15 13:05 | PM.PN ---
Subjective Subjective: Interval history: pt stating feeling better bringing up yellow sputum afebrile BP stable Cultures negative On HHF 30L 55% Asked RT to wean down to Regular NC Vitals/I&O/Wt Last Vital Signs Temp 98.4 F 08/15/21 11:00 Pulse 82 08/15/21 11:55 Resp 17 08/15/21 11:55 BP 122/70 08/15/21 11:00 Pulse Ox 93 08/15/21 11:55 08/14/21 08/15/21 08/15/21 22:59 06:59 14:59 Intake Total 290 / 770 650 / 1420 890 / 890 Output Total 700 / 700 400 / 400 Balance -410 / 70 650 / 720 490 / 490 Physical Exam Narrative: EXAM NARRATIVE: Pt sitting at the bedside On HHF B/L BS with mild ronchi otherwise wheezing improved Non focal neuro exam Abd soft S1 s2 no murmur No joint swelling obese male Data : 08/15/21 04:20 08/15/21 04:20 A&P Assessment and plan (1) Acute exacerbation of chronic obstructive airways disease: Status: Acute (2) COPD (chronic obstructive pulmonary disease): Status: Acute (3) Atrial fibrillation: Status: Acute (4) Chronic kidney disease, stage II (mild): Status: Acute (5) Uncontrolled type 2 diabetes mellitus: Status: Acute (6) Nicotine addiction: Status: Acute Additional A&P Information Hosp acquired pneumonia On cefepime and Levaquin Afebrile, cultures negative to date Heated high flow 30 L 55% Plan to transition him down to regular nasal cannula If patient is stable by Monday can go home after home O2 evaluation Preserved ejection fraction heart failure without acute exacerbation Lasix put on hold Metolazone on hold Chronic kidney disease without acute exacerbation Full code DVT prophylaxis Lovenox Cardiac diet Attestations Medical Necessity Statement*: Anticipating discharge on Monday if oxygen requirement has improved Time Spent in Patient Care: less than 15 minutes Coding Level of Care Code 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
[2021-08-15] MEDS: saline nasal spray 44mL Btl 1 SPRAY NASAL ×2 (13:39→17:09)
[2021-08-15 16:59] LABS: Glucose Point of Care 230 mg/dL (70-110)
[2021-08-15] MEDS: ALPRAZolam 0.5 mg Tablet PO (20:26)
[2021-08-15] MEDS: insulin glargine 100 units/1 mL 15 UNIT SUBCUT (20:27)
[2021-08-15 21:00] LABS: Glucose Point of Care 268 mg/dL (70-110)
[2021-08-16] VITALS (14 sets, daily range): BP systolic 117–170; BP diastolic 65–85; PULSE 74–95; RESP 18–24; TEMP 36.3–37.1; O2SAT 89–98
[2021-08-16] MEDS: cefepime 2,000 MG in sodium chloride 0.9% (plus) 50 ML 100 MG IV ×2 (01:37→12:19)
[2021-08-16 02:00] LABS: Glucose Point of Care 163 mg/dL (70-110)
[2021-08-16 02:29] LABS: Glucose Point of Care 128 mg/dL (70-110)
[2021-08-16] MEDS: ipratropium-albuterol 3 mL Neb INHALATION ×4 (02:37→20:30)
[2021-08-16] MEDS: aspirin 81 mg EC Tablet PO (04:50)
[2021-08-16] MEDS: roflumilast 500 mcg Tablet PO (04:50)
[2021-08-16] MEDS: levoFLOXacin 750 mg Tablet PO (04:50)
[2021-08-16] MEDS: methIMAzole 5 MG Tablet 2.5 MG PO (04:51)
[2021-08-16] MEDS: pantoprazole DR 40 mg Tablet PO (04:52)
[2021-08-16 05:58] LABS: Glucose Point of Care 132 mg/dL (70-110)
[2021-08-16 07:04] LABS: Anion Gap 8.2 (5-19); Blood Urea Nitrogen 23 mg/dL (8-23); Calcium 8.9 mg/dL (8.5-10.5); Chloride 90 mmol/L (98-107); Glomerular Filtration Rate 113.9 mL/min (90-130); Glucose 87 mg/dL (65-115); Osmolality Calculated 293 mOsm/kg (285-295); Potassium 4.2 mmol/L (3.5-5.1); Sodium 140 mmol/L (136-145)
[2021-08-16 07:30] LABS: Carbon Dioxide 46 mmol/L (22-29)
[2021-08-16] MEDS: potassium chloride ER 20 mEq Tablet PO ×2 (08:07→17:45)
[2021-08-16] MEDS: atorvastatin 40 mg Tablet PO (08:07)
[2021-08-16] MEDS: metoprolol tartrate 25 mg Tablet 12.5 MG PO ×2 (08:08→17:45)
[2021-08-16] MEDS: predniSONE 5 mg Tablet 7.5 MG PO (08:08)
[2021-08-16 12:03] LABS: Glucose Point of Care 202 mg/dL (70-110)
[2021-08-16] MEDS: insulin lispro 100 unit/1 mL SUBCUT ×3 (12:18→21:47)
[2021-08-16] MEDS: enoxaparin 40 mg/0.4 mL Syringe SUBCUT (12:21)
--- NOTE | 2021-08-16 12:24 | P.PN_ITS ---
Subjective Subjective: Interval history: Seen and examined this morning. Patient states he is scared to and is worried about his breathing. He was on heated high flow when I saw him in the room. I will asked respiratory therapy to try to wean him down to nasal cannula again. He does state that he was on Lasix at home. He feels comfortable at this time. Vitals/I&O/Wt Last Vital Signs Temp 97.5 F L 08/16/21 08:00 Pulse 95 08/16/21 08:04 Resp 20 H 08/16/21 08:04 BP 124/76 08/16/21 08:00 Pulse Ox 96 08/16/21 08:04 08/15/21 08/16/21 08/16/21 22:59 06:59 14:59 Intake Total 240 / 1130 50 / 1180 480 / 480 Output Total 650 / 1050 1020 / 2070 Balance -410 / 80 -970 / -890 480 / 480 Physical Exam Narrative: EXAM NARRATIVE: General: Alert oriented x3, patient seen sitting up on edge of bed appearing comfortable. No acute distress. HEENT: Normocephalic, atraumatic, EOMI, Cardio: Regular rate rhythm, normal S1-S2, no murmurs rubs gallops, Respiratory: Good bilateral air entry, no wheezes no rhonchi appreciated GI: Abdomen soft, nontender, nondistended, bowel sounds + Behavior: Appropriate and cooperative Extremities: no edema, no cyanosis Data : 08/15/21 04:20 08/16/21 05:45 A&P Assessment and plan (1) Acute exacerbation of chronic obstructive airways disease: Status: Acute (2) COPD (chronic obstructive pulmonary disease): Status: Acute (3) Atrial fibrillation: Currently in sinus rhythm Continue amiodarone Not a candidate for full anticoagulation secondary to history of GI bleed Status: Acute (4) Chronic kidney disease, stage II (mild): Renal function currently stable Status: Acute (5) Uncontrolled type 2 diabetes mellitus: Sliding scale insulin Continue patient's long-acting insulin Status: Acute (6) Nicotine addiction: Status: Acute Additional A&P Information Hosp acquired pneumonia COPD Exacerbation Continue pulmonary toilet He is currently on a prednisone taper. 10 mg daily currently. During his last hospital stay there was concern for potential adrenal insufficiency secondary to frequent steroid courses and marked hypotension. Slow taper should occur from 10 mg. Tomorrow will be on 7.5 mg daily and this likely should continue for at least 7 days before going down to 5 mg. On cefepime and Levaquin Afebrile, cultures negative to date Heated high flow 30 L 55% Plan to transition him down to regular nasal cannula Patient still requiring high O2. I have ordered COVID to rule out. Preserved ejection fraction heart failure without acute exacerbation Lasix put on hold. Will continue to hold. Metolazone on hold restarted amiodarone restarted entresto Chronic kidney disease without acute exacerbation Full code DVT prophylaxis Lovenox Cardiac diet Attestations Medical Necessity Statement*: Still requiring high amounts of O2. Time Spent in Patient Care: 16 - 35 minutes Coding Level of Care Code Acute School Photograph Editor for Pacheco Morin Diagnoses Acute exacerbation of chronic obstructive airways disease J44.1 COPD (chronic obstructive pulmonary disease) J44.9 Atrial fibrillation I48.91 Chronic kidney disease, stage II (mild) N18.2 Uncontrolled type 2 diabetes mellitus E11.65 Nicotine addiction F17.200
--- NOTE | 2021-08-16 12:27 | PC.SOCIAL ---
Pg 2 IMM Explained to pt pg 2 IMM. No questions voiced. Provided pt a copy. Initialed, dated, & timed a copy & placed in chart.
[2021-08-16] MEDS: sacubitril/valsartan 24-26 mg Tablet 1 EACH PO (17:45)
[2021-08-16 17:51] LABS: Glucose Point of Care 175 mg/dL (70-110)
[2021-08-16] MEDS: trazodone 50 mg Tablet PO (20:42)
[2021-08-16 21:15] LABS: Glucose Point of Care 200 mg/dL (70-110)
[2021-08-16] MEDS: insulin glargine 100 units/1 mL 15 UNIT SUBCUT (21:48)
[2021-08-17] VITALS (11 sets, daily range): BP systolic 118–145; BP diastolic 69–73; PULSE 86–123; RESP 18–22; TEMP 36.6–36.8; O2SAT 68–98
[2021-08-17] MEDS: cefepime 2,000 MG in sodium chloride 0.9% (plus) 50 ML 100 MG IV ×2 (01:22→12:36)
[2021-08-17 02:07] LABS: Glucose Point of Care 69 mg/dL (70-110)
[2021-08-17] MEDS: ipratropium-albuterol 3 mL Neb INHALATION ×2 (02:59→08:05)
[2021-08-17 03:33] LABS: Glucose Point of Care 143 mg/dL (70-110)
[2021-08-17] MEDS: benzonatate 100 mg Capsule PO (04:11)
[2021-08-17] MEDS: aspirin 81 mg EC Tablet PO (06:11)
[2021-08-17] MEDS: roflumilast 500 mcg Tablet PO (06:11)
[2021-08-17] MEDS: levoFLOXacin 750 mg Tablet PO (06:11)
[2021-08-17] MEDS: methIMAzole 5 MG Tablet 2.5 MG PO (06:12)
[2021-08-17] MEDS: pantoprazole DR 40 mg Tablet PO (06:12)
[2021-08-17 06:25] LABS: Basophils % 0.5 %; Eosinophils # 0.1 10^3/uL (0.0-0.8); Eosinophils % 1.4 %; Hematocrit 45.5 % (42.0-52.0); Hemoglobin 13.9 g/dL (11.7-16.6); Lymphocytes # 0.6 10^3/uL (0.8-4.8); Lymphocytes % 10.5 %; Mean Corpuscular HGB Conc 30.5 g/dL (30.0-36.0); Mean Corpuscular Hemoglobin 29.1 pg (28.0-34.0); Mean Corpuscular Volume 95.4 fl (80-94); Mean Platelet Volume 9.4 fL (7.4-10.4); Monocytes # 0.5 10^3/uL (0.2-0.9); Monocytes % 9.1 %; Neutrophils # 4.58 10^3/uL (1.8-7.7); Neutrophils % 77.3 %; Nucleated Red Blood Cells % 0 %; Platelet Count 256 10^3/cmm (130-400); Red Blood Count 4.77 10^6/uL (4.1-5.3); Red Cell Distribution Width 17.2 % (12.1-15.1); White Blood Count 5.9 10^3/uL (4.0-10.0)
[2021-08-17 06:56] LABS: Slide Review Slide Review Perform
[2021-08-17 07:00] LABS: Glucose Point of Care 112 mg/dL (70-110)
--- NOTE | 2021-08-17 07:00 | XR_ITS ---
WS: [id number] XR chest 1V portable [id number] REASON FOR EXAM: Follow up FINDINGS: Compared to the previous examination of 08/14/2021, central vascular congestion persists with enlarged upper lobe veins. Decreased lung opacities in the lower lung [place]. Probable small pleural effusions. No new abnormality. XR/XR chest 1V portable [id number] IMPRESSION: Improvement in lung opacities in the lung bases.
[2021-08-17 07:16] LABS: Anion Gap 4.6 (5-19); Blood Urea Nitrogen 23 mg/dL (8-23); Calcium 9.4 mg/dL (8.5-10.5); Chloride 89 mmol/L (98-107); Glomerular Filtration Rate 136.1 mL/min (90-130); Glucose 104 mg/dL (65-115); Osmolality Calculated 286 mOsm/kg (285-295); Potassium 4.6 mmol/L (3.5-5.1); Sodium 136 mmol/L (136-145)
[2021-08-17 07:20] LABS: Carbon Dioxide 47 mmol/L (22-29)
[2021-08-17 08:19] LABS: ABG PH Result 7.44 (7.35-7.45); Alveolar-Arterial Oxygen Gradi 16.3 mmHg (5-10); Arterial Blood Gas Hematocrit 45.2 % (42-52); Base Excess ABG 20.9 mmol/L (-2.0-2.0); Blood Gas Allen Test Pos; Blood Gas Operator Identificat ED; Blood Gas Sample Site Radial, left; Blood Gas Sample Type Arterial; Carboxyhemoglobin 0.8 %THgb (0.4-20.1); HCO3 ABG 49.9 mmol/L (22-26); Ionized Calcium Level - ABG 1.2 mmol/L (1.1-1.4); Methemoglobin 0.7 % (0.4-1.5); Oxygen Device BIPAP; Oxygen Saturation ABG 98.5; Potassium Level - ABG 4.4 mmol/L (3.5-5.0); Total Hemoglobin 14.7 g/dL (14-18)
[2021-08-17 08:20] LABS: ABG PCO2 73.2 mmHg (35-45)
[2021-08-17] MEDS: potassium chloride ER 20 mEq Tablet PO (09:27)
[2021-08-17] MEDS: atorvastatin 40 mg Tablet PO (09:27)
[2021-08-17] MEDS: sacubitril/valsartan 24-26 mg Tablet 1 EACH PO (09:27)
[2021-08-17] MEDS: predniSONE 5 mg Tablet 7.5 MG PO (09:27)
[2021-08-17] MEDS: metoprolol tartrate 25 mg Tablet 12.5 MG PO (09:28)
[2021-08-17] MEDS: amiodarone 200 mg Tablet PO (09:28)
[2021-08-17 12:29] LABS: Glucose Point of Care 185 mg/dL (70-110)
--- NOTE | 2021-08-17 12:44 | PM.DCS ---
Discharge Providers Date of Admission: 08/13/21 12:55 Date of Discharge: August 17, 2021 Attending Provider at Admission: Mikie Berry MD Attending Provider at Discharge: Sabra Reddy MD Primary Care Provider: Nasreen Gomez Diagnoses at Discharge Discharge Diagnosis (1) Acute exacerbation of chronic obstructive airways disease: Status: Acute (2) COPD (chronic obstructive pulmonary disease): Status: Acute (3) Atrial fibrillation: Status: Acute Permanent problem details: (4) Chronic kidney disease, stage II (mild): Status: Acute (5) Uncontrolled type 2 diabetes mellitus: Status: Acute (6) Nicotine addiction: Status: Acute Reason for Visit Reason for Visit: SOB Hospital Course Hospital Course Nagi Cuellar is a 65 year old male who presents today with shortness of breath and increased swelling. He was recently hospitalized for chest pain, low blood pressure from August 02 two August 05. At that time he got an angiogram which did not demonstrate any flow-limiting stenosis. Echocardiogram was performed demonstrating preserved EF and no wall motion abnormalities. Prednisone was initiated for concerns of low blood pressure and possibility of adrenal insufficiency. Previous problems on last admission included significant acute kidney injury. He reports he has been more short of breath last several days. No significant chest pain. Increased edema. Reports he is taking his medicine. He also reports he has been using his BiPAP at home. No fever. Hospital course: Patient was treated for hospital-acquired pneumonia and COPD exacerbation. He was placed on a prednisone taper. He was sent home on 5 mg daily. Inpatient he was on cefepime and Levaquin. I sent patient home on Levaquin 750 x 5 days. Patient was requiring heated high flow on and off with transitioning to nasal cannula. On day of discharge he was requiring 4 L at rest and 7 to 8 L on ambulation. It seems to be patient's baseline. He stated he felt well enough to go home and stated that he will be able to do okay. He was instructed to use his BiPAP at night. And continue to use nasal cannula during the day. He was also given follow-up with pulmonology as an outpatient. Patient demonstrated understanding and was discharged with inhalers as well. Do note that he has end-stage COPD. Patient was aggressively diuresed while inpatient. I did change his diuretic dose from Lasix 80 mg twice daily to 40 mg twice daily for now. I told him to see his primary care physician for adjustment of Lasix. He appeared very euvolemic on the day of discharge. Physical Exam Narrative: EXAM NARRATIVE: General: Alert oriented x3, patient seen sitting up on edge of bed appearing comfortable. No acute distress. On 4 L nasal cannula at this time. He looks better and feels better. HEENT: Normocephalic, atraumatic, EOMI, Cardio: Regular rate rhythm, normal S1-S2, no murmurs rubs gallops, Respiratory: Good bilateral air entry but definitely diminished. No wheezes no rhonchi appreciated lung exam improved compared to yesterday. GI: Abdomen soft, nontender, nondistended, bowel sounds + Behavior: Appropriate and cooperative Extremities: no edema, no cyanosis Discharge Data Data Completed and Pending: Completed Studies During Hospitalization Category Date Time Status XR chest 1[place]ftab ble [id number] Routine Exams 08/17/21 07:00 Completed XR chest 1V aftab ble [id number] Stat Exams 08/12/21 06:01 Completed XR chest 1V aftab ble [id number] Stat Exams 08/14/21 08:07 Completed Pending at discharge Category Date Time Status Arterial Blood Ga s W/Coox Stat Lab 08/14/21 12:37 Ordered Coronavirus Test [facility] Stat Lab 08/15/21 22:20 Received Labs from last 24 hours 08/17/21 08/17/21 08/17/21 12:21 08:09 06:54 WBC RBC Hgb Hct MCV MCH MCHC RDW Plt Count MPV Neut % (Auto) Lymph % (Auto) [place] % (Auto) Eos % (Auto) Baso % (Auto) Neut # (Auto) Lymph # (Auto) [place] # (Auto) Eos # (Auto) Baso # (Auto) Nucleated RBC % (a uto) Nucleated RBCs # Specimen Type Arterial Sample Site Radial, left ABG pH 7.44 ABG pCO2 73.2 H* ABG pO2 143.0 H ABG HCO3 49.9 H ABG O2 Saturation 98.5 ABG Base Excess 20.9 H Gee Test Pos A-a O2 Gradient 16.3 H Hematocrit 45.2 Hgb O2 Saturation 97.0 Carboxyhemoglobin 0.8 Methemoglobin 0.7 Total Hemoglobin 14.7 Ionized Calcium 1.2 O2 Delivery Device Bipap FiO2 50.0 Research Test Engine Evaluator ID Ed Sodium 137.0 Potassium 4.4 Chloride Carbon Dioxide Anion Gap BUN Creatinine GFR Calculation Glucose 94.0 POC Glucose 185 H 112 H Calculated Osmolal ity Calcium Magnesium 08/17/21 08/17/21 08/17/21 06:10 06:10 03:30 WBC 5.9 RBC 4.77 Hgb 13.9 Hct 45.5 MCV 95.4 H MCH 29.1 MCHC 30.5 RDW 17.2 H Plt Count 256 MPV 9.4 Neut % (Auto) 77.3 Lymph % (Auto) 10.5 [place] % (Auto) 9.1 Eos % (Auto) 1.4 Baso % (Auto) 0.5 Neut # (Auto) 4.58 Lymph # (Auto) 0.6 L [place] # (Auto) 0.5 Eos # (Auto) 0.1 Baso # (Auto) 0.0 Nucleated RBC % (a uto) 0 Nucleated RBCs # 0.0 Specimen Type Sample Site ABG pH ABG pCO2 ABG pO2 ABG HCO3 ABG O2 Saturation ABG Base Excess Gee Test A-a O2 Gradient Hematocrit Hgb O2 Saturation Carboxyhemoglobin Methemoglobin Total Hemoglobin Ionized Calcium O2 Delivery Device FiO2 Research Test Engine Evaluator ID Sodium 136 Potassium 4.6 Chloride 89 L Carbon Dioxide 47 H* Anion Gap 4.6 L BUN 23 Creatinine 0.6 L GFR Calculation 136.1 H Glucose 104 POC Glucose 143 H Calculated Osmolal ity 286 Calcium 9.4 Magnesium 2.0 08/17/21 08/16/21 08/16/21 01:58 21:09 17:45 WBC RBC Hgb Hct MCV MCH MCHC RDW Plt Count MPV Neut % (Auto) Lymph % (Auto) [place] % (Auto) Eos % (Auto) Baso % (Auto) Neut # (Auto) Lymph # (Auto) [place] # (Auto) Eos # (Auto) Baso # (Auto) Nucleated RBC % (a uto) Nucleated RBCs # Specimen Type Sample Site ABG pH ABG pCO2 ABG pO2 ABG HCO3 ABG O2 Saturation ABG Base Excess Gee Test A-a O2 Gradient Hematocrit Hgb O2 Saturation Carboxyhemoglobin Methemoglobin Total Hemoglobin Ionized Calcium O2 Delivery Device FiO2 Research Test Engine Evaluator ID Sodium Potassium Chloride Carbon Dioxide Anion Gap BUN Creatinine GFR Calculation Glucose POC Glucose 69 L 200 H 175 H Calculated Osmolal ity Calcium Magnesium Vitals: Last Vital Signs Temp 98.3 F 08/17/21 08:00 Pulse 114 H 08/17/21 08:16 Resp 18 08/17/21 08:16 BP 118/69 08/17/21 08:00 Pulse Ox 91 08/17/21 08:34 Discharge Plan Discharge Patient Disposition: Home Condition: Stable Prescriptions: New benzonatate 100 mg Capsule 100 mg PO TID PRN (Reason: Cough) Qty: 14 RF: 0 prednisone 5 mg Tablet 5 mg PO DAILY Qty: 5 RF: 0 levofloxacin 750 mg Tablet 750 mg PO DAILY@0600 Qty: 4 RF: 0 budesonide [Pulmicort] 0.5 mg/2 mL suspension for nebulization 0.5 mg inhalation BID Qty: 60 RF: 0 Continued Pacerone 200 mg tablet 200 mg PO DAILY RF: 0 Vitamin B12 Gummies 1 - 2 tab PO DAILY RF: 0 formoterol fumarate [Perforomist] 20 mcg/2 mL Solution For Nebulization 2 ml INHALATION BID RF: 0 Farxiga 10 mg tablet 10 mg PO QAM RF: 0 Spiriva Respimat 1.25 mcg/actuation mist 2 puff inhalation DAILY RF: 0 Triple Antibiotic 3.5mg-400 unit- 5,000 unit/gram Ointment 1 applic topical DAILY Qty: 15 RF: 0 aspirin 81 mg tablet,delayed release (DR/EC) 81 mg PO QAM RF: 0 metoprolol tartrate 25 mg tablet 12.5 mg PO BID RF: 0 potassium chloride 20 mEq tablet extended release 20 meq PO BID RF: 0 trazodone 50 mg Tablet 50 mg PO BEDTIME RF: 0 methimazole 5 mg tablet 2.5 mg PO QAM RF: 0 rosuvastatin 10 mg tablet 10 mg PO DAILY RF: 0 Daliresp 500 mcg tablet 500 mcg PO QAM RF: 0 Januvia 50 mg tablet 50 mg PO QAM RF: 0 Lantus Solostar U-100 Insulin 100 unit/mL (3 mL) insulin pen 20 unit SUBCUT BEDTIME RF: 0 omeprazole 40 mg capsule,delayed release(DR/EC) 40 mg PO QAM RF: 0 Jardiance 25 mg tablet 25 mg PO QAM RF: 0 Entresto 24-26 mg Tablet 1 tab PO BID RF: 0 Changed furosemide 40 mg tablet 40 mg PO BID Qty: 0 RF: 0 Discontinued magnesium Tablet 1 tab PO DAILY RF: 0 prednisone 10 mg tablet See Rx Instructions .ROUTE .COMPLEX RF: 0 Discharge Orders: Discharge Order (Routine); Ordered 08/17/21 Ordered By: Sabra Reddy Other Ambulatory Orders: DME: Oxygen (Order) Location: None Selected Ordered By: Mikie Berry Referrals: [facility] [Other] (Call and they will ask a series of questions and assign points off your answers. Points assigned will determine if you qualify.) [facility] [Other] Dedra Harrison FNP [Nurse Practitioner] - 08/24/21 10:00 am (Adjustment of diuretic) Nasreen Gomez PA [Primary Care Provider] - 08/23/21 3:30 pm Nick Corley MD [Physician] - 09/22/21 11:30 am Krystal Meneses MD [Physician] - 09/21/21 2:30 pm Discharge Diet: Cardiac Discharge Activity: Increase activity as tolerated and Oxygen as instructed Patient Instructions: Benzonatate (By mouth), Prednisone (By mouth), Levofloxacin (By mouth), Budesonide (By breathing), Heart Failure (GEN), COPD (Chronic Obstructive Pulmonary Disease) (GEN), Opioid Safety Activity Restrictions/Additional Instructions: I have reduced your lasix dose. Please see cardiology within 1 week before going back to lasix 80 mg twice a day. Also, please follow up with Dr. Corlye [facility] as outpatient. Please continue to wear bipap at night and have your NC oxygen during day. Discharge Attestations Time Spent in Discharge Care*: less than 30 min Specific Discharge Activities: educating patient and documenting/other paperwork Status at Discharge: Cognitive status at discharge: cognitively intact, Behavioral status at discharge: cooperative, Quality Metrics Clinical Quality Measures During this hospital stay, did patient experience: None Coding Level of Care Code Acute [facility] note Diagnoses Acute exacerbation of chronic obstructive airways disease J44.1 COPD (chronic obstructive pulmonary disease) J44.9 Atrial fibrillation I48.91 Chronic kidney disease, stage II (mild) N18.2 Uncontrolled type 2 diabetes mellitus E11.65 Nicotine addiction F17.200
[2021-08-17] MEDS: insulin lispro 100 unit/1 mL SUBCUT (13:04)
[2021-08-17] MEDS: enoxaparin 40 mg/0.4 mL Syringe SUBCUT (13:04)
--- NOTE | 2021-08-17 13:51 | PC.NURSE ---
Discharge Note Patient discharged to home via private vehicle accompanied by his girlfriend. Discharge instructions reviewed with patient and/or tax representative. Mobile pharmacy medications and/or prescriptions provided. Belongings/home medications returned.
[2021-08-17 16:25] LABS: Coronavirus Test Green County Not Detected
--- NOTE | 2021-08-19 10:05 | PC.SOCIAL ---
patient is currently admitted to the ICU since 08-18.
== END 2021-08-17 13:50 | disposition home health service (06) | DRG 190 ==
LOC: ER 09:16 → MEDSURG 10:14
PROVIDERS: Internal Medicine; Admitting Provider Internal Medicine; Emergency Provider Family Medicine; PCP Physician Assistant; Visit Provider Internal Medicine
DX: J44.0 Chronic obstructive pulmonary disease with (acute) lower respiratory infection (principal); J18.9 Pneumonia, unspecified organism; I50.31 Acute diastolic (congestive) heart failure; J96.21 Acute and chronic respiratory failure with hypoxia; I13.0 Hypertensive heart and chronic kidney disease with heart failure and stage 1 through stage 4 chronic kidney disease, or unspecified chronic kidney disease; E27.40 Unspecified adrenocortical insufficiency; J44.1 Chronic obstructive pulmonary disease with (acute) exacerbation; I25.2 Old myocardial infarction; I48.91 Unspecified atrial fibrillation; I25.10 Atherosclerotic heart disease of native coronary artery without angina pectoris; N18.2 Chronic kidney disease, stage 2 (mild); E11.22 Type 2 diabetes mellitus with diabetic chronic kidney disease; E11.65 Type 2 diabetes mellitus with hyperglycemia; G47.33 Obstructive sleep apnea (adult) (pediatric); Z87.01 Personal history of pneumonia (recurrent); F17.210 Nicotine dependence, cigarettes, uncomplicated; Z79.51 Long term (current) use of inhaled steroids; Z79.82 Long term (current) use of aspirin; Z79.4 Long term (current) use of insulin; Z79.84 Long term (current) use of oral hypoglycemic drugs; Z99.89 Dependence on other enabling machines and devices
CPT/HCPCS: 36415; 36416; 36600; 71045; 80048; 80051; 80053; 81001; 82330; 82803; 82805; 82962; 83735; 83880; 84484; 85025; 85378; 87635; 93005; 94640; 94660; 94762; 96372; 96374; 99285; G0378; J0692; J1644; J1650; J1815 ×2; J1940; J2920; J3490; J7512

== ENCOUNTER 2021-08-18 03:06 | Inpatient (IN) | payer MEDICARE, MEDICAID, SELFPAY ==
[2021-08-18] VITALS (170 sets, daily range): BP systolic 90–154; BP diastolic 57–96; PULSE 76–113; RESP 12–36; TEMP 36.3–37.1; O2SAT 67–98; BMI 36.0
--- NOTE | 2021-08-18 03:12 | XRR_ITS ---
PROCEDURE INFORMATION: Exam: XR Chest Exam date and time: 08/18/2021 3:12 AM Age: 65 years old Clinical indication: Shortness of breath; Patient HX: Chronic SOB. History of copd, chf, and afib. TECHNIQUE: Imaging protocol: XR of the chest. Views: 1 view. COMPARISON: CR XR chest 1V portable [id number] 08/17/2021 6:28 AM FINDINGS: Lungs: There is peribronchial cuffing and prominent vasculature consistent with pulmonary edema. Probable atelectasis or scarring at the lung bases. Pleural spaces: Unremarkable. No pleural effusion. No pneumothorax. Heart/Mediastinum: Unremarkable. No cardiomegaly. Bones/joints: Unremarkable. XR/XR chest 1V portable [id number] IMPRESSION: Diffuse moderate pulmonary edema. Radiation Dose CTDIVOL = (mGy): DLP = (mGy-cm)
--- NOTE | 2021-08-18 03:16 | W.ED.SOB ---
HPI - SOB/Dyspnea General: Chief Complaint: Shortness of Breath/Dyspnea Stated Complaint: SOB Time Seen by Provider: 08/18/21 03:11 Source: patient and EMS Mode of arrival: EMS Limitations: no limitations History of Present Illness: HPI Narrative: 65-year-old male with a history of COPD along with CHF was recently admitted and discharged from here yesterday for COPD exacerbation. States today started to feel anxious and having increasing shortness of breath he is on 4 L baseline oxygen at home he is 94% on 4 L. He had a slight cough denies any fever denies any worsening improving factors patient was given albuterol treatment in route by EMS. Associated symptoms: Deny abdominal pain, chest pain, fever(s), nausea or vomiting Review of Systems Const: Denies: fever(s), chills, body aches or change in appetite Eyes: Denies: blurry vision or eye discomfort ENMT: Denies: throat pain or dental pain Card: Denies: chest pain Resp: Reports: dyspnea and wheezing GI: Denies: abdominal pain, nausea, vomiting or diarrhea : Denies: dysuria Musc: Denies: neck pain or back pain Skin/Breast: Denies: rash Neuro: Denies: headache(s) Psych: Denies: depression Dov/Lymph: Denies: easy bruising All/Imm: Denies: urticaria PFSH ED PFSH: Medical History Acute exacerbation of chronic obstructive airways disease Acute hypercapnic respiratory failure Atrial fibrillation Atrial fibrillation with rapid ventricular response CAD (coronary artery disease) Chest pain CHF (congestive heart failure) Chronic respiratory failure with hypoxia Congestive heart failure COPD (chronic obstructive pulmonary disease) Cor pulmonale Diabetes Elevated troponin I level Heart attack Hypertension Hypoxia Nicotine addiction DAYNE (obstructive sleep apnea) Pneumonia Surgical History H/O hernia repair Family History Mother Lung disease COPD Sister Cancer Social History Quit status (tobacco): considering quitting Second hand smoke exposure: Yes Smoking risk assessment/counseling performed?: Yes Alcohol intake: current Alcohol intake frequency: holidays/special occasions only Desire information about alcohol rehabilitation?: No Counseling given: No Desire information about substance/drug rehabilitation?: No Counseling given: No Lives independently: Yes Household members: none Marital status: Single Current occupational status: disabled and 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 History of recent travel: No Current gender identity: Male Physical Exam Const: COMMON NORMALS: no acute distress, patient oriented x3 and healthy appearing HENMT: COMMON NORMALS: normocephalic and atraumatic HEAD & SCALP: normocephalic and atraumatic Eye: COMMON NORMALS: Equal, round and reactive pupils present and EOMs intact bilaterally PUPIL: Yes Equal, round and reactive pupils present Neck/C-Spine: COMMON NORMALS: full ROM and supple Chest: COMMONS NORMALS: normal inspection of the chest and normal palpation of entire chest wall Resp: COMMON NORMALS: normal respiratory effort, No retractions and No use of accessory muscles AUSCULTATION: wheezes Cardio: COMMON NORMALS: regular rhythm and No murmurs present (Cardio) RATE: tachycardic RHYTHM: regular rhythm GI: COMMON NORMALS: Normal to inspection, nondistended, normoactive bowel sounds present, Soft to palpation, non-tender and no masses PALPATION: Yes Soft to palpation Extremity: COMMON NORMALS: normal to inspection and full ROM Neuro: COMMON NORMALS: patient oriented x3, moves all extremities and no focal motor deficits Psych: COMMON NORMALS: mental status grossly normal, Normal thought process present and cooperative THOUGHT PROCESS: Normal thought process present Skin: COMMON NORMALS: no rashes or lesions noted and no wounds GENERAL SKIN EXAM: no rashes or lesions noted Course Vital Signs: Vital signs: Vital Signs Temperature 98.4 F 08/18/21 03:07 Pulse Rate 113 H 08/18/21 03:07 Respiratory Rate 18 08/18/21 03:07 Blood Pressure 140/84 08/18/21 03:07 Pulse Oximetry 94 08/18/21 03:07 MDM - SOB/Dyspnea MDM Narrative: Medical decision making narrative: Patient presents here with COPD exacerbation patient has worsening CO2 compared to his baseline. He is awake alert we will place him on BiPAP I spoke to the hospitalist will admit. Lab Data: Labs: Lab Results 08/18/21 08/18/21 08/18/21 03:15 03:15 03:15 WBC 6.4 10^3/uL 10^3/ uL (4.0-10.0) RBC 5.07 10^6/uL 10^6 /uL (4.1-5.3) Hgb 14.6 g/dL g/dL (11.7-16.6) Hct 48.3 % % (42.0-52.0) MCV 95.3 fl H fl (80-94) MCH 28.8 pg pg (28.0-34.0) MCHC 30.2 g/dL g/dL (30.0-36.0) RDW 17.2 % H % (12.1-15.1) Plt Count 281 10^3/cmm 10^3 /cmm (130-400) MPV 9.7 fL fL (7.4-10.4) Neut % (Auto) 80.8 % % Lymph % (Auto) 7.5 % % Millard % (Auto) 9.0 % % Eos % (Auto) 0.6 % % Baso % (Auto) 0.5 % % Neut # (Auto) 5.19 10^3/uL 10^3 /uL (1.8-7.7) Lymph # (Auto) 0.5 10^3/uL L 10^ 3/uL (0.8-4.8) Millard # (Auto) 0.6 10^3/uL 10^3/ uL (0.2-0.9) Eos # (Auto) 0.0 10^3/uL 10^3/ uL (0.0-0.8) Baso # (Auto) 0.0 10^3/uL 10^3/ uL (0.0-0.1) Nucleated RBC % (a uto) 0 % % Nucleated RBCs # 0.0 /100WBC /100W BC PT 12.80 SECONDS SEC ONDS (12.1-14.9) INR 0.93 (0.8-1.2) Specimen Type Sample Site ABG pH ABG pO2 ABG HCO3 ABG Base Excess Gee Test Hematocrit O2 Delivery Device O2 Liters/Min Offender Employment Specialist ID Sodium 140 mmol/L mmol/L (136-145) Potassium 4.9 mmol/L mmol/L (3.5-5.1) Chloride 93 mmol/L L mmol/ L (98-107) Carbon Dioxide 45 mmol/L H* mmol /L (22-29) Anion Gap 6.9 (5-19) BUN 30 mg/dL H mg/dL (8-23) Creatinine 0.9 mg/dL mg/dL (0.7-1.2) GFR Calculation 85.2 mL/min L mL/ min (90-130) Glucose 141 mg/dL H mg/dL (65-115) Calculated Osmolal ity 299 mOsm/kg H mOs m/kg (285-295) Calcium 9.5 mg/dL mg/dL (8.5-10.5) Total Bilirubin 0.2 mg/dL mg/dL (0.15-1.2) AST 14 U/L U/L (0-40) ALT 25 U/L U/L (0-41) Alkaline Phosphata se 73 IU/L IU/L (40-130) NT-Pro-B Natriuret Pep 639 pg/mL H pg/mL (0-125) Total Protein 6.3 g/dL L g/dL (6.6-8.7) Albumin 3.5 g/dL g/dL (3.5-5.2) Globulin 2.8 g/dL g/dL (1.3-4.6) 08/18/21 04:22 WBC RBC Hgb Hct MCV MCH MCHC RDW Plt Count MPV Neut % (Auto) Lymph % (Auto) Millard % (Auto) Eos % (Auto) Baso % (Auto) Neut # (Auto) Lymph # (Auto) Millard # (Auto) Eos # (Auto) Baso # (Auto) Nucleated RBC % (a uto) Nucleated RBCs # PT INR Specimen Type Arterial Sample Site Radial, right ABG pH 7.26 L (7.35-7.45) ABG pO2 114.0 mmHg H mmHg (80.0-100.0) ABG HCO3 48.5 mmol/L H mmo l/L (22-26) ABG Base Excess 15.5 mmol/L H mmo l/L (-2.0-2.0) Gee Test Pos Hematocrit 44.7 % % (42-52) O2 Delivery Device Nc O2 Liters/Min 5.0 % % Offender Employment Specialist ID [email or web address] Sodium Potassium Chloride Carbon Dioxide Anion Gap BUN Creatinine GFR Calculation Glucose Calculated Osmolal ity Calcium Total Bilirubin AST ALT Alkaline Phosphata se NT-Pro-B Natriuret Pep Total Protein Albumin Globulin EKG Data^: EKG 1: Attestation: I personally reviewed and interpreted this EKG as follows: EKG Interpretation Date: 08/18/21 EKG interpretation time: 03:21 Interpretation: Sinus tachycardia heart rate [address] elevation QRS 114 QTC 380 Discharge Plan Discharge Patient Disposition: Admitted As Inpatient Clinical Impression: Acute exacerbation of chronic obstructive airways disease Condition: Stable Coding Level of Care Code ED Sports Physician for Chg Fwd Exam Comprehensive
--- NOTE | 2021-08-18 03:21 | ECG_ITS ---
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 Measurements Intervals [place] Rate: 113 P: NC: QRS: 67 QRSD: 113 T: 54 QT: 317 QTc: 435 Interpretive Statements Possible sinus tachycardia. Left radial lodgment INCOMPLETE RIGHT BUNDLE BRANCH BLOCK [90+ ms QRS DURATION, TERMINAL R IN V1/V2, 40+ ms S IN I/aVL/V4/V5/V6] ABNORMAL RHYTHM ECG Compared to ECG 08/14/2021 04:49:09 Indeterminate axis no longer present ST (T wave) deviation no longer present Electronically Signed On 08-18-2021 19:56:09 CDT by Dannielle Butler M.D. [id number]
[2021-08-18 03:27] LABS: Basophils % 0.5 %; Eosinophils % 0.6 %; Hematocrit 48.3 % (42.0-52.0); Hemoglobin 14.6 g/dL (11.7-16.6); Lymphocytes # 0.5 10^3/uL (0.8-4.8); Lymphocytes % 7.5 %; Mean Corpuscular HGB Conc 30.2 g/dL (30.0-36.0); Mean Corpuscular Hemoglobin 28.8 pg (28.0-34.0); Mean Corpuscular Volume 95.3 fl (80-94); Mean Platelet Volume 9.7 fL (7.4-10.4); Monocytes # 0.6 10^3/uL (0.2-0.9); Neutrophils # 5.19 10^3/uL (1.8-7.7); Neutrophils % 80.8 %; Nucleated Red Blood Cells % 0 %; Platelet Count 281 10^3/cmm (130-400); Red Blood Count 5.07 10^6/uL (4.1-5.3); Red Cell Distribution Width 17.2 % (12.1-15.1); White Blood Count 6.4 10^3/uL (4.0-10.0)
[2021-08-18 03:43] LABS: INR 0.93 (0.8-1.2)
[2021-08-18 03:53] LABS: Alanine Aminotransferase 25 U/L (0-41); Albumin Level 3.5 g/dL (3.5-5.2); Alkaline Phosphatase 73 IU/L (40-130); Anion Gap 6.9 (5-19); Aspartate Amino Transferase 14 U/L (0-40); Blood Urea Nitrogen 30 mg/dL (8-23); Calcium 9.5 mg/dL (8.5-10.5); Chloride 93 mmol/L (98-107); Globulin 2.8 g/dL (1.3-4.6); Glomerular Filtration Rate 85.2 mL/min (90-130); Glucose 141 mg/dL (65-115); NT Pro B Type Natriuretic Pept 639 pg/mL (0-125); Osmolality Calculated 299 mOsm/kg (285-295); Potassium 4.9 mmol/L (3.5-5.1); Sodium 140 mmol/L (136-145); Total Bilirubin 0.2 mg/dL (0.15-1.2); Total Protein 6.3 g/dL (6.6-8.7)
[2021-08-18 03:59] LABS: Carbon Dioxide 45 mmol/L (22-29)
[2021-08-18 04:33] LABS: ABG PH Result 7.26 (7.35-7.45); Arterial Blood Gas Hematocrit 44.7 % (42-52); Base Excess ABG 15.5 mmol/L (-2.0-2.0); Blood Gas Allen Test Pos; Blood Gas Sample Type Arterial; HCO3 ABG 48.5 mmol/L (22-26)
[2021-08-18 04:36] LABS: Blood Gas Sample Site Radial, right; Oxygen Device NC
--- NOTE | 2021-08-18 09:15 | PC.CHAP ---
Pastoral Care Encounter/Spiritual Assessment Type of Contact [] Declined returned goods repairer visit [] Patient/Family/Request visit [] Outpatient visit [] Follow-up visit [] Physician referral [] Code/Alert [x] Routine visit [] Staff referral [] Actively dying [] Patient sleeping [] Family support [] [] Out of room [] Palliative care [] [] Receiving care in room [] Pre-surgical visit [] Trauma [] Long length of stay [x] ICU visit [] Other: Relational/Emotional Strength [] Patient feels connected with others/family/visitors/staff [] Distress [] Loneliness/isolation [] Abandonment Spirituality of Patient [x] Person of Margret [] Attends Zoroastrianism of their Margret [] Believes in Prayer [] Reads Bible or Holiness materials [] There are Spiritual issues to be addressed Tree Surgeon Helper Interventions [x] Prayer [x] Active listening [x] Non-anxious presence [x] Spiritual/emotional support [] Crisis/trauma care [] Spiritual counseling [] Bereavement support [] Provided bereavement packet [] Provided Bible/devotional materials [] Provided toy/stuffed animal, coloring book to patient or family member [] Provided Communion [] Anointing/[place] [] Salvation [x] Completed spiritual assessment [] Other: Impact on Illness or Injury [] Angry [] Fearful [] Anxious [] Often cries [] Exhaustion [] Unable to work [] Unable to attend jew [] Unable to walk/stand [] Unable to read [] Unable to drive [] Unable to eat/drink [] Unable to sleep [] Unable to be with family [] Patient intubated [] Other: Summary patient on air mask.. not handling it well. very uncomfortable .. Time spent with patient 5 min
--- NOTE | 2021-08-18 09:19 | P.HP_ITS ---
Providers/Chief Complaint Admitting Physician: Talha Benedict Primary Care Provider: Nasreen Gomez Chief Complaint: SOB History of Present Illness Ngai Cuellar is a 65 year old male who was discharged August 17 after his stay for concern of fluid overload as well as heart failure and represented to the emergency department in less than 24 hours for readmission. Patient is on BiPAP when I saw him making history somewhat difficult. I gather that he was significantly short of breath after discharge, tried to wear his BiPAP at home but could not, so came back in. He was very anxious as well. No fevers. Slight cough. No other new symptoms. In the emergency department, he received Solu-Medrol and a breathing treatment. Review of Systems General: Reports: 10 or more systems reviewed and unremarkable except in HPI and below Const: Denies: fever(s) or chills Eyes: Denies: change in vision ENMT: Denies: throat pain Card: Denies: chest pain Resp: Reports: dyspnea and non-productive cough GI: Denies: abdominal pain, nausea or vomiting : Denies: flank pain Musc: Denies: neck pain Skin/Breast: Denies: rash Neuro: Denies: headache(s) Psych: Denies: anxiety or depression Endo: Denies: polyuria Dov/Lymph: Denies: easy bruising All/Imm: Denies: urticaria Medications/Allergies Home Medications Medication Instructions Recorded Confirmed Last Taken Type trazodone 50 mg PO BEDTIME 11/20/19 08/12/21 07/17/21 History Daliresp 500 mcg PO QAM 01/15/21 08/12/21 07/17/21 History methimazole 2.5 mg PO QAM 01/15/21 08/12/21 07/17/21 History rosuvastatin 10 mg PO DAILY 01/15/21 08/12/21 07/17/21 History Entresto 1 tab PO BID 07/18/21 08/12/21 07/17/21 History Jardiance 25 mg PO QAM 07/18/21 08/12/21 07/17/21 History omeprazole 40 mg PO QAM 07/18/21 08/12/21 07/17/21 History insulin glargine 100 unit/mL (3 20 unit SUBCUT BEDTIME ml 07/23/21 08/12/21 08/11/21 History mL) subcutaneous pen sitagliptin 50 mg tablet 50 mg PO QAM tab 07/23/21 08/12/21 Unknown History Farxiga 10 mg PO QAM 08/02/21 08/12/21 Unknown History Spiriva Respimat 2 puff INHALATION DAILY 08/02/21 08/12/21 Unknown History Vitamin B12 Gummies 1 - 2 tab PO DAILY 08/02/21 08/12/21 Unknown History formoterol fumarate [Perforomist] 2 ml INHALATION BID 08/02/21 08/12/21 Unknown History Triple Antibiotic 1 applic TOPICAL DAILY #15 g 08/05/21 08/12/21 Unknown Rx amiodarone 200 mg tablet 200 mg PO DAILY tab 08/10/21 08/12/21 Unknown History aspirin 81 mg PO QAM 08/12/21 08/12/21 Unknown History metoprolol tartrate 12.5 mg PO BID 08/12/21 08/12/21 Unknown History potassium chloride 20 meq PO BID 08/12/21 08/12/21 Unknown History benzonatate 100 mg PO TID PRN #14 cap 08/17/21 Unknown Rx budesonide [Pulmicort] 0.5 mg INHALATION BID #60 ml 08/17/21 Unknown Rx furosemide 40 mg PO BID #0 tab 08/17/21 08/12/21 Unknown Rx levofloxacin 750 mg PO DAILY@0600 #4 tab 08/17/21 Unknown Rx prednisone 5 mg PO DAILY #5 tab 08/17/21 Unknown Rx Allergies Allergy/AdvReac Type Severity Reaction Status Date / Time No Known Allergies Allergy Verified 08/12/21 10:17 PFSH Acute PFSH: Medical History (Updated 08/18/21 @ 09:46 by Mikie Berry MD) Acute exacerbation of chronic obstructive airways disease Acute hypercapnic respiratory failure Atrial fibrillation Atrial fibrillation with rapid ventricular response CAD (coronary artery disease) Chest pain CHF (congestive heart failure) Chronic respiratory failure with hypoxia Congestive heart failure COPD (chronic obstructive pulmonary disease) Cor pulmonale Diabetes Elevated troponin I level Heart attack Hypertension Hypoxia Nicotine addiction DAYNE (obstructive sleep apnea) Pneumonia Surgical History H/O hernia repair Family History Mother Lung disease COPD Sister Cancer Social History Quit status (tobacco): considering quitting Second hand smoke exposure: Yes Smoking risk assessment/counseling performed?: Yes Alcohol intake: current Alcohol intake frequency: holidays/special occasions only Desire information about alcohol rehabilitation?: No Counseling given: No Desire information about substance/drug rehabilitation?: No Counseling given: No Lives independently: Yes Household members: none Marital status: Single Current occupational status: disabled and 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 [employer] History of recent travel: No Current gender identity: Male Vitals/I&O/Wt Last Vital Signs Temp 98 F 08/18/21 06:00 Pulse 96 08/18/21 07:25 Resp 21 H 08/18/21 07:25 BP 149/89 08/18/21 07:25 Pulse Ox 91 08/18/21 07:25 Weight last 48 hrs Weight 95.254 kg Physical Exam Narrative: EXAM NARRATIVE: General exam is a white male, on BiPAP HEENT: Atraumatic normocephalic. Pupils equally round. Oropharynx clear. Neck is supple no lymphadenopathy or thyromegaly Cardiovascular regular rate and rhythm, without murmur Lungs diminished breath sounds bilaterally no wheezing or crackles Abdomen is soft nontender with positive bowel sounds exam is deferred Extremities 1+ edema bilaterally, no cyanosis or clubbing. Skin no rash Neuro no focal deficits. Data : 08/18/21 03:15 08/18/21 03:15 Other data: PT/INR were normal ABG demonstrated pH 7.26, PCO2 109, PO2 of 114. LFTs normal BNP 639 Chest x-ray peribronchial cuffing, possible pulmonary edema EKG demonstrated rate of 113, sinus tachycardia, normal axis, right bundle branch block. A&P Assessment and plan (1) Respiratory failure, acute: Patients with severe acute on chronic hypercarbic respiratory failure with presenting pH 7.26 and PCO2 109. BNP is slightly elevated, but lower than last presentation reducing chance that this is heart failure related even though he has small amount of peripheral edema. 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 Status: Acute (2) COPD (chronic obstructive pulmonary disease): Not actively wheezing. Continue prednisone 5 mg daily. He did receive Solu-Medrol in the emergency department. Pulmonary toilet every 4 hours Budadam May require more BiPAP with AVAPS settings or trilogy during the day and certainly all the time at night. He has been resistant to this in the past. Secondary to the severity of his COPD it would be best to have him do skilled ca re on discharge for strengthening and further observation He was discharged on Levaquin. He does have some neuro agitation or anxiety which could be related. We will transition him to Augmentin for 3 days. Status: Acute (3) Congestive heart failure: Reinitiate home medication of Lasix 40 mg twice daily Secondary to significant metabolic alkalosis add acetazolamide Status: Acute (4) Uncontrolled type 2 diabetes mellitus: sliding scale insulin Consistent carb diet Status: Acute (5) Nicotine addiction: Encourage abstinence Status: Acute (6) Atrial fibrillation: Continue amiodarone and metoprolol Currently in sinus rhythm Not a candidate for anticoagulation secondary to severe GI bleeding in the past. Status: Acute Additional A&P Information Full code Lovenox for DVT prophylaxis Attestations Medical Necessity Statement*: Will need greater than 2 midnight stay secondary to severity of respiratory failure on admission. Hopefully can place at nursing facility as patient needs strengthening and further observation prior to going to the home environment. Time Spent in Patient Care: Greater than 35 minutes Coding Level of Care Code Acute Operations Chief for Pacheco Morin Diagnoses Respiratory failure, acute J96.00 COPD (chronic obstructive pulmonary disease) J44.9 Congestive heart failure I50.9 Uncontrolled type 2 diabetes mellitus E11.65 Nicotine addiction F17.200 Atrial fibrillation I48.91
[2021-08-18] MEDS: predniSONE 5 mg Tablet PO (10:18)
[2021-08-18] MEDS: amoxicillin-clav 875-125 mg Tablet 1 TAB PO ×2 (10:18→17:56)
[2021-08-18] MEDS: enoxaparin 40 mg/0.4 mL Syringe SUBCUT (10:19)
[2021-08-18] MEDS: acetaZOLAMIDE 250 mg Tablet PO (10:19)
[2021-08-18] MEDS: FUROsemide 40 mg Tablet PO ×2 (10:19→16:32)
[2021-08-18] MEDS: amiodarone 200 mg Tablet PO (10:19)
[2021-08-18] MEDS: ipratropium-albuterol 3 mL Neb INHALATION ×4 (11:48→23:43)
[2021-08-18 12:05] LABS: Glucose Point of Care 226 mg/dL (70-110)
[2021-08-18] MEDS: insulin lispro 100 unit/1 mL SUBCUT ×2 (13:53→17:57)
[2021-08-18 17:50] LABS: Glucose Point of Care 219 mg/dL (70-110)
[2021-08-18] MEDS: metoprolol tartrate 25 mg Tablet 12.5 MG PO (17:57)
--- NOTE | 2021-08-18 18:23 | PC.NURSE ---
at 1400, Nurse took over patient care from Jolie Mix RN... Currently patient is resting comfortable in bed. Vitals are within normal limits. No complaints or immediate needs noted.
--- NOTE | 2021-08-18 19:26 | PC.NURSE ---
SHIft SUmmary: Uneventful shift. Patient rested in bed throughout most of the day. Was up to the chair for dinner. Placed on Nasal cannula at 5lpm while eating and his oxygen saturation staye din the low 90's/ Pt understands and is agreeable to going back onto bipap at night.
[2021-08-18] MEDS: budesonide 0.5 mg/2 mL Neb INHALATION (19:51)
[2021-08-18] MEDS: trazodone 50 mg Tablet PO (22:13)
[2021-08-19] VITALS (136 sets, daily range): BP systolic 97–139; BP diastolic 53–92; PULSE 72–109; RESP 11–41; TEMP 36.4–36.8; O2SAT 73–98
[2021-08-19] MEDS: ipratropium-albuterol 3 mL Neb INHALATION ×6 (03:28→23:08)
[2021-08-19] MEDS: diphenhydrAMINE 50 mg Capsule PO ×2 (03:38→21:44)
[2021-08-19 04:53] LABS: Basophils % 0.2 %; Hematocrit 42.1 % (42.0-52.0); Lymphocytes # 0.4 10^3/uL (0.8-4.8); Lymphocytes % 6.3 %; Mean Corpuscular HGB Conc 30.9 g/dL (30.0-36.0); Mean Corpuscular Hemoglobin 29.4 pg (28.0-34.0); Mean Corpuscular Volume 95.2 fl (80-94); Mean Platelet Volume 10.1 fL (7.4-10.4); Monocytes # 0.7 10^3/uL (0.2-0.9); Monocytes % 10.5 %; Neutrophils # 5.06 10^3/uL (1.8-7.7); Neutrophils % 81.4 %; Nucleated Red Blood Cells % 0 %; Platelet Count 262 10^3/cmm (130-400); Red Blood Count 4.42 10^6/uL (4.1-5.3); Red Cell Distribution Width 17.3 % (12.1-15.1); White Blood Count 6.2 10^3/uL (4.0-10.0)
[2021-08-19 05:19] LABS: Alanine Aminotransferase 20 U/L (0-41); Albumin Level 3.2 g/dL (3.5-5.2); Alkaline Phosphatase 59 IU/L (40-130); Anion Gap 9.1 (5-19); Aspartate Amino Transferase 11 U/L (0-40); Blood Urea Nitrogen 38 mg/dL (8-23); Calcium 8.6 mg/dL (8.5-10.5); Chloride 91 mmol/L (98-107); Globulin 2.4 g/dL (1.3-4.6); Glomerular Filtration Rate 85.2 mL/min (90-130); Glucose 183 mg/dL (65-115); Osmolality Calculated 300 mOsm/kg (285-295); Potassium 4.1 mmol/L (3.5-5.1); Sodium 138 mmol/L (136-145); Total Bilirubin 0.2 mg/dL (0.15-1.2); Total Protein 5.6 g/dL (6.6-8.7)
[2021-08-19 05:43] LABS: Carbon Dioxide 42 mmol/L (22-29)
--- NOTE | 2021-08-19 06:50 | PC.NURSE ---
Shift Note Frequent safety and comfort rounds continue. Orders and/or nursing care completed as indicated. Patient monitored for response to intervention and treatment(s). Education provided includes BIPAP. Patient verbalized understanding of teaching. Patient rested all evening, he is A & O x4, no wounds or skin issues noted at this time. Both IV's remain saline locked at this time. Patient remains on BIPAP at 40% FiO2. Will continue to monitor.
[2021-08-19] MEDS: roflumilast 500 mcg Tablet PO (07:25)
[2021-08-19] MEDS: pantoprazole DR 40 mg Tablet PO (07:25)
[2021-08-19] MEDS: methIMAzole 5 MG Tablet 2.5 MG PO (07:25)
[2021-08-19] MEDS: aspirin 81 mg EC Tablet PO (07:25)
[2021-08-19 07:49] LABS: Glucose Point of Care 267 mg/dL (70-110)
[2021-08-19] MEDS: budesonide 0.5 mg/2 mL Neb INHALATION ×2 (07:59→20:15)
[2021-08-19] MEDS: amoxicillin-clav 875-125 mg Tablet 1 TAB PO ×2 (08:54→17:26)
[2021-08-19] MEDS: acetaZOLAMIDE 250 mg Tablet PO (08:54)
[2021-08-19] MEDS: metoprolol tartrate 25 mg Tablet 12.5 MG PO ×2 (08:55→17:26)
[2021-08-19] MEDS: predniSONE 5 mg Tablet PO (08:55)
[2021-08-19] MEDS: atorvastatin 40 mg Tablet PO (08:55)
[2021-08-19] MEDS: amiodarone 200 mg Tablet PO (08:55)
[2021-08-19] MEDS: FUROsemide 40 mg Tablet PO ×2 (08:55→16:27)
[2021-08-19] MEDS: insulin lispro 100 unit/1 mL SUBCUT ×3 (08:59→17:26)
--- NOTE | 2021-08-19 09:08 | PC.CHAP ---
Pastoral Care Encounter/Spiritual Assessment Type of Contact [] Declined pododermatologist visit [] Patient/Family/Request visit [] Outpatient visit [] Follow-up visit [] Physician referral [] Code/Alert [x] Routine visit [] Staff referral [] Actively dying [x] Patient sleeping [] Family support [] [] Out of room [] Palliative care [] [] Receiving care in room [] Pre-surgical visit [] Trauma [] Long length of stay [x] ICU visit [x] Other: oxygen mask in place Relational/Emotional Strength [] Patient feels connected with others/family/visitors/staff [] Distress [] Loneliness/isolation [] Abandonment Spirituality of Patient [] Person of Margret [] Attends Mormonism of their Margret [] Believes in Prayer [] Reads Bible or Cheondoism materials [] There are Spiritual issues to be addressed Quality Assurance Practice Manager Interventions [x] Prayer [] Active listening [] Non-anxious presence [] Spiritual/emotional support [] Crisis/trauma care [] Spiritual counseling [] Bereavement support [] Provided bereavement packet [] Provided Bible/devotional materials [] Provided toy/stuffed animal, coloring book to patient or family member [] Provided Communion [] Anointing/[place] [] Salvation [x] Completed spiritual assessment [] Other: Impact on Illness or Injury [] Angry [] Fearful [] Anxious [] Often cries [] Exhaustion [] Unable to work [] Unable to attend confucianism [] Unable to walk/stand [] Unable to read [] Unable to drive [] Unable to eat/drink [] Unable to sleep [] Unable to be with family [] Patient intubated [] Other: Summary Time spent with patient
[2021-08-19] MEDS: enoxaparin 40 mg/0.4 mL Syringe SUBCUT (10:11)
[2021-08-19 12:01] LABS: Glucose Point of Care 175 mg/dL (70-110)
--- NOTE | 2021-08-19 14:04 | P.PN_ITS ---
Subjective Subjective: Interval history: Nagi feels better today. Less short of breath. Did wear BiPAP last night. Agreeable to skilled placement. Medications: Reviewed: Yes Vitals/I&O/Wt Last Vital Signs Temp 97.6 F 08/19/21 09:00 Pulse 94 08/19/21 13:44 Resp 27 H 08/19/21 12:35 BP 116/61 08/19/21 12:50 Pulse Ox 94 08/19/21 13:44 08/18/21 08/19/21 08/19/21 22:59 06:59 14:59 Intake Total 600 / 600 240 / 840 660 / 660 Output Total 500 / 1500 450 / 450 Balance 600 / -400 -260 / -660 210 / 210 Weight last 48 hrs Weight 95.254 kg Physical Exam Narrative: EXAM NARRATIVE: General exam is a white male, on BiPAP when I saw him earlier. Now on nasal cannula. Neck is supple no lymphadenopathy or thyromegaly Cardiovascular regular rate and rhythm, without murmur Lungs diminished breath sounds bilaterally no wheezing or crackles Abdomen is soft nontender with positive bowel sounds Extremities 1+ edema bilaterally, no cyanosis or clubbing. Data : 08/19/21 04:09 08/19/21 04:09 A&P Assessment and plan (1) Respiratory failure, acute: Severe acute on chronic hypercarbic respiratory failure with presenting pH 7.26 and PCO2 109. BNP is slightly elevated, but lower than last presentation reducing chance that this is heart failure related even though he has small amount of peripheral edema. 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 He does appear to have some improvement. Try to keep oxygen levels lower in the range of 88 to 92% to prevent CO2 retention. Status: Acute (2) COPD (chronic obstructive pulmonary disease): Not actively wheezing. Continue prednisone 5 mg daily. He did receive Solu-Medrol in the emergency department. Pulmonary toilet every 4 hours Budesonide May require more BiPAP with AVAPS settings or trilogy during the day and certainly all the time at night. He has been resistant to this in the past. Secondary to the severity of his COPD it would be best to have him do skilled care on discharge for strengthening and further observation He was discharged on Levaquin. He does have some neuro agitation or anxiety which could be related. Transition to Augmentin inpatient for 3 days total, this being his second day. Status: Acute (3) Congestive heart failure: Reinitiate home medication of Lasix 40 mg twice daily Secondary to significant metabolic alkalosis add acetazolamide. Bicarbonate on BMP slightly lower Status: Acute (4) Uncontrolled type 2 diabetes mellitus: sliding scale insulin Consistent carb diet Status: Acute (5) Nicotine addiction: Encourage abstinence Status: Acute (6) Atrial fibrillation: Continue amiodarone and metoprolol Currently in sinus rhythm Not a candidate for anticoagulation secondary to severe GI bleeding in the past. Status: Acute Additional A&P Information Full code Lovenox for DVT prophylaxis Attestations Medical Necessity Statement*: Needs continued hospitalization for respiratory support and pulmonary toilet pending placement. Coding Level of Care Code Acute Supervisor [employer] for Pacheco Morin Diagnoses Respiratory failure, acute J96.00 COPD (chronic obstructive pulmonary disease) J44.9 Congestive heart failure I50.9 Uncontrolled type 2 diabetes mellitus E11.65 Nicotine addiction F17.200 Atrial fibrillation I48.91
[2021-08-19 16:35] LABS: Glucose Point of Care 168 mg/dL (70-110)
--- NOTE | 2021-08-19 18:41 | PC.NURSE ---
All IVP medications administered by Alisha Alfredo RN.
--- NOTE | 2021-08-19 18:58 | PC.NURSE ---
All charting from SHAHNAZ Carter, reviewed and confirmed.
[2021-08-19 21:11] LABS: Glucose Point of Care 179 mg/dL (70-110)
[2021-08-19] MEDS: trazodone 50 mg Tablet PO (21:44)
--- NOTE | 2021-08-19 22:23 | PC.NURSE ---
Patient requesting medication for heartburJak notified. Orders to be placed
[2021-08-20] VITALS (26 sets, daily range): BP systolic 107–141; BP diastolic 58–82; PULSE 73–92; RESP 10–24; TEMP 36.1–36.7; O2SAT 89–99
[2021-08-20 05:21] LABS: Blood Urea Nitrogen 35 mg/dL (8-23); Calcium 8.3 mg/dL (8.5-10.5); Carbon Dioxide 38 mmol/L (22-29); Chloride 87 mmol/L (98-107); Glomerular Filtration Rate 75.5 mL/min (90-130); Glucose 163 mg/dL (65-115); Osmolality Calculated 286 mOsm/kg (285-295); Sodium 132 mmol/L (136-145)
[2021-08-20] MEDS: methIMAzole 5 MG Tablet 2.5 MG PO (06:01)
[2021-08-20] MEDS: aspirin 81 mg EC Tablet PO (06:01)
[2021-08-20] MEDS: pantoprazole DR 40 mg Tablet PO (06:01)
[2021-08-20] MEDS: roflumilast 500 mcg Tablet PO (06:01)
--- NOTE | 2021-08-20 06:30 | PC.NURSE ---
Shift Summary: Patient wore bipap from [id number], tolerating 3L NC at this time. Patient educated on importance of taking his time to do activities to maintain oxygen levels.
[2021-08-20 07:43] LABS: Glucose Point of Care 166 mg/dL (70-110)
[2021-08-20] MEDS: ipratropium-albuterol 3 mL Neb INHALATION ×4 (07:57→16:10)
[2021-08-20] MEDS: budesonide 0.5 mg/2 mL Neb INHALATION ×2 (08:00→19:57)
[2021-08-20] MEDS: metoprolol tartrate 25 mg Tablet 12.5 MG PO ×2 (08:15→17:26)
[2021-08-20] MEDS: acetaZOLAMIDE 250 mg Tablet PO (08:16)
[2021-08-20] MEDS: predniSONE 5 mg Tablet PO (08:17)
[2021-08-20] MEDS: amoxicillin-clav 875-125 mg Tablet 1 TAB PO ×2 (08:17→17:25)
[2021-08-20] MEDS: amiodarone 200 mg Tablet PO (08:18)
[2021-08-20] MEDS: atorvastatin 40 mg Tablet PO (08:18)
[2021-08-20] MEDS: insulin lispro 100 unit/1 mL SUBCUT ×3 (08:18→17:25)
[2021-08-20] MEDS: FUROsemide 40 mg Tablet PO ×2 (08:29→16:08)
--- NOTE | 2021-08-20 09:44 | PM.PN ---
Subjective Subjective: Interval history: Nagi reports he is doing well. No particular concerns. Feels less short of breath. Medications: Reviewed: Yes Vitals/I&O/Wt Last Vital Signs Temp 97.8 F 08/20/21 04:00 Pulse 92 08/20/21 09:00 Resp 21 H 08/20/21 09:00 BP 118/74 08/20/21 09:00 Pulse Ox 93 08/20/21 09:00 08/19/21 08/20/21 08/20/21 22:59 06:59 14:59 Intake Total 1160 / 1820 475 / 2295 Output Total 750 / 1200 500 / 1700 750 / 750 Balance 410 / 620 -25 / 595 -750 / -750 Physical Exam Narrative: EXAM NARRATIVE: General exam is a white male, on BiPAP when I saw him earlier. Now on nasal cannula. Neck is supple no lymphadenopathy or thyromegaly Cardiovascular regular rate and rhythm, without murmur Lungs diminished breath sounds bilaterally no wheezing or crackles Abdomen is soft nontender with positive bowel sounds Extremities 1+ edema bilaterally, no cyanosis or clubbing. Data : 08/19/21 04:09 08/20/21 04:10 A&P Assessment and plan (1) Respiratory failure, acute: Severe acute on chronic hypercarbic respiratory failure with presenting pH 7.26 and PCO2 109. BNP is slightly elevated, but lower than last presentation reducing chance that this is heart failure related even though he has small amount of peripheral edema. 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 He does appear to have some improvement. Try to keep oxygen levels lower in the range of 88 to 92% to prevent CO2 retention. Currently on 3 L. This appears to have stabilized. Status: Acute (2) COPD (chronic obstructive pulmonary disease): Not actively wheezing. Continue prednisone 5 mg daily. He did receive Solu-Medrol in the emergency department. Pulmonary toilet every 4 hours Budesonide May require more BiPAP with AVAPS settings or trilogy during the day and certainly all the time at night. He has been resistant to this in the past. Patient is now tolerating BiPAP in the hospital without difficulty. Secondary to the severity of his COPD it would be best to have him do skilled care on discharge for strengthening and further observation He was discharged on Levaquin. He does have some neuro agitation or anxiety which could be related. Transition to Augmentin inpatient for 3 days total, this being his third day. It can be discontinued tomorrow. Status: Acute (3) Congestive heart failure: Continue home medication of Lasix 40 mg twice daily Secondary to significant metabolic alkalosis acetazolamide was added. Bicarbonate improving. Sodium slightly low. Reduce the dose slightly. Fluid restriction Status: Acute (4) Uncontrolled type 2 diabetes mellitus: sliding scale insulin Consistent carb diet Status: Acute (5) Nicotine addiction: Encourage abstinence Status: Acute (6) Atrial fibrillation: Continue amiodarone and metoprolol Currently in sinus rhythm Not a candidate for anticoagulation secondary to severe GI bleeding in the past. Status: Acute Additional A&P Information Full code Lovenox for DVT prophylaxis Attestations Medical Necessity Statement*: Needs continued hospitalization for respiratory support and toilet pending placement. Coding Level of Care Code Acute Hospice/Home Health Aide for [facility] Diagnoses Respiratory failure, acute J96.00 COPD (chronic obstructive pulmonary disease) J44.9 Congestive heart failure I50.9 Uncontrolled type 2 diabetes mellitus E11.65 Nicotine addiction F17.200 Atrial fibrillation I48.91
[2021-08-20] MEDS: enoxaparin 40 mg/0.4 mL Syringe SUBCUT (09:55)
[2021-08-20 11:17] LABS: Glucose Point of Care 263 mg/dL (70-110)
[2021-08-20] MEDS: saline nasal spray 44mL Btl 1 SPRAY NASAL (11:20)
--- NOTE | 2021-08-20 11:26 | PC.CHAP ---
Pastoral Care Encounter/Spiritual Assessment Type of Contact [] Declined photo journalist visit [] Patient/Family/Request visit [] Outpatient visit [] Follow-up visit [] Physician referral [] Code/Alert [x] Routine visit [] Staff referral [] Actively dying [] Patient sleeping [] Family support [] [] Out of room [] Palliative care [] [] Receiving care in room [] Pre-surgical visit [] Trauma [] Long length of stay [x] ICU visit [x] Other: no mask setting in chair Relational/Emotional Strength [] Patient feels connected with others/family/visitors/staff [] Distress [] Loneliness/isolation [] Abandonment Spirituality of Patient [] Person of Margret [] Attends Advent of their Margret [] Believes in Prayer [] Reads Bible or Bahai materials [] There are Spiritual issues to be addressed Hazmat Technician Interventions [x] Prayer [] Active listening [] Non-anxious presence [] Spiritual/emotional support [] Crisis/trauma care [] Spiritual counseling [] Bereavement support [] Provided bereavement packet [] Provided Bible/devotional materials [] Provided toy/stuffed animal, coloring book to patient or family member [] Provided Communion [] Anointing/[place] [] Salvation [x] Completed spiritual assessment [] Other: Impact on Illness or Injury [] Angry [] Fearful [] Anxious [] Often cries [] Exhaustion [] Unable to work [] Unable to attend mosque [] Unable to walk/stand [] Unable to read [] Unable to drive [] Unable to eat/drink [] Unable to sleep [] Unable to be with family [] Patient intubated [] Other: Summary Time spent with patient
[2021-08-20 17:14] LABS: Glucose Point of Care 169 mg/dL (70-110)
--- NOTE | 2021-08-20 18:52 | PC.NURSE ---
All charting reviwed and confirmed.
[2021-08-20 20:17] LABS: Glucose Point of Care 257 mg/dL (70-110)
[2021-08-20] MEDS: trazodone 50 mg Tablet PO (21:55)
[2021-08-20] MEDS: diphenhydrAMINE 50 mg Capsule PO (22:37)
[2021-08-21] VITALS (24 sets, daily range): BP systolic 100–137; BP diastolic 65–76; PULSE 67–102; RESP 11–22; O2SAT 77–96
[2021-08-21] MEDS: ipratropium-albuterol 3 mL Neb INHALATION ×7 (00:15→23:40)
[2021-08-21] MEDS: methIMAzole 5 MG Tablet 2.5 MG PO (05:26)
[2021-08-21] MEDS: roflumilast 500 mcg Tablet PO (05:26)
[2021-08-21] MEDS: pantoprazole DR 40 mg Tablet PO (05:26)
[2021-08-21] MEDS: aspirin 81 mg EC Tablet PO (05:26)
[2021-08-21 06:36] LABS: Glucose Point of Care 128 mg/dL (70-110)
[2021-08-21 06:51] LABS: Basophils % 0.6 %; Eosinophils # 0.1 10^3/uL (0.0-0.8); Eosinophils % 1.6 %; Hematocrit 41.2 % (42.0-52.0); Hemoglobin 13.3 g/dL (11.7-16.6); Lymphocytes # 0.7 10^3/uL (0.8-4.8); Mean Corpuscular HGB Conc 32.3 g/dL (30.0-36.0); Mean Corpuscular Hemoglobin 29.5 pg (28.0-34.0); Mean Corpuscular Volume 91.4 fl (80-94); Mean Platelet Volume 11.3 fL (7.4-10.4); Monocytes # 0.6 10^3/uL (0.2-0.9); Monocytes % 10.9 %; Neutrophils # 3.59 10^3/uL (1.8-7.7); Neutrophils % 70.9 %; Nucleated Red Blood Cells % 0 %; Platelet Count 148 10^3/cmm (130-400); Red Blood Count 4.51 10^6/uL (4.1-5.3); Red Cell Distribution Width 17.2 % (12.1-15.1); White Blood Count 5.1 10^3/uL (4.0-10.0)
[2021-08-21] MEDS: amiodarone 200 mg Tablet PO (08:05)
[2021-08-21] MEDS: acetaZOLAMIDE 250 mg Tablet 125 MG PO (08:05)
[2021-08-21] MEDS: atorvastatin 40 mg Tablet PO (08:05)
[2021-08-21] MEDS: FUROsemide 40 mg Tablet PO ×2 (08:05→17:32)
[2021-08-21] MEDS: metoprolol tartrate 25 mg Tablet 12.5 MG PO ×2 (08:06→17:32)
[2021-08-21] MEDS: budesonide 0.5 mg/2 mL Neb INHALATION ×2 (08:06→20:21)
[2021-08-21] MEDS: predniSONE 5 mg Tablet PO (08:06)
[2021-08-21] MEDS: amoxicillin-clav 875-125 mg Tablet 1 TAB PO (08:06)
--- NOTE | 2021-08-21 09:50 | PC.SOCIAL ---
Pg 2 IMM Explained to pt Pg 2 IMM. No questions voiced. Provided pt a copy. Initialed, dated, & timed a copy & placed in chart.
[2021-08-21] MEDS: enoxaparin 40 mg/0.4 mL Syringe SUBCUT (10:32)
[2021-08-21 11:32] LABS: Blood Urea Nitrogen 25 mg/dL (8-23); Calcium 8.5 mg/dL (8.5-10.5); Carbon Dioxide 35 mmol/L (22-29); Chloride 93 mmol/L (98-107); Glomerular Filtration Rate 136.1 mL/min (90-130); Glucose 215 mg/dL (65-115); Osmolality Calculated 289 mOsm/kg (285-295); Sodium 134 mmol/L (136-145)
[2021-08-21 11:44] LABS: Glucose Point of Care 206 mg/dL (70-110)
[2021-08-21 11:45] LABS: Anion Gap 10.1 (5-19); Potassium 4.1 mmol/L (3.5-5.1)
[2021-08-21] MEDS: insulin lispro 100 unit/1 mL SUBCUT ×2 (12:07→17:38)
--- NOTE | 2021-08-21 14:58 | PM.PN ---
Subjective Subjective: Interval history: Patient was seen and examined this morning no active complaints, enjoys using BiPAP. Shortness of breath is at his baseline, wants to walk. Medications: Reviewed: Yes Vitals/I&O/Wt Last Vital Signs Temp 98.0 F 08/20/21 19:17 Pulse 73 08/21/21 11:28 Resp 15 08/21/21 11:26 BP 137/76 08/21/21 05:24 Pulse Ox 95 08/21/21 11:26 08/20/21 08/21/21 08/21/21 22:59 06:59 14:59 Intake Total 826 / 1136 500 / 1636 240 / 240 Output Total 1170 / 2950 300 / 3250 250 / 250 Balance -344 / -1814 200 / -1614 -10 Physical Exam Const: COMMON NORMALS: patient oriented x3 HENMT: COMMON NORMALS: normocephalic and atraumatic HEAD & SCALP: normocephalic and atraumatic Resp: EFFORT & INSPECTION: Yes symmetric chest movement OTHER: Diminished air entry bilaterally Cardio: COMMON NORMALS: regular rate, regular rhythm, S1 normal heart sound present, S2 normal heart sound present, No gallops present (Cardio), No murmurs present (Cardio), No rub (Cardio) and Peripheral pulses 2+ throughout RATE: regular rate RHYTHM: regular rhythm HEART SOUNDS: S1 normal heart sound present and S2 normal heart sound present PERIPHERAL PULSES: Peripheral pulses 2+ throughout GI: COMMON NORMALS: Normal to inspection, nondistended, normoactive bowel sounds present, Soft to palpation, non-tender, No hepatosplenomegaly present and no masses AUSCULTATION: Yes normoactive bowel sounds PALPATION: Yes Soft to palpation and Yes No hepatosplenomegaly present RECTAL EXAM: Yes deferred Extremity: COMMON NORMALS: no clubbing, cyanosis or edema and no pedal edema Neuro: COMMON NORMALS: patient oriented x3 Data : 08/21/21 05:27 08/21/21 10:52 A&P Assessment and plan (1) Respiratory failure, acute: Acute on chronic hypercapnic respiratory failure secondary to end-stage COPD Continue duo nebs Prednisone 5 mg p.o. daily Roflumilast 500 mcg po daily Budesonide inhaler 0.5 mcg inhalation twice daily Completed 3-day course of Augmentin p.o. twice daily Continue BiPAP (will benefit more with disciplined BiPAP use ) Currently at baseline supplemental oxygen requirement at 3 Ls Status: Acute (2) COPD (chronic obstructive pulmonary disease): Not actively wheezing. Continue prednisone 5 mg daily. He did receive Solu-Medrol in the emergency department. Pulmonary toilet every 4 hours Budmissaelonide May require more BiPAP with AVAPS settings or trilogy during the day and certainly all the time at night. He has been resistant to this in the past. Patient is now tolerating BiPAP in the hospital without difficulty. Secondary to the severity of his COPD it would be best to have him do skilled care on discharge for strengthening and further observation He was discharged on Levaquin. He does have some neuro agitation or anxiety which could be related. Status: Acute (3) Congestive heart failure: Currently compensated patient is euvolemic. Continue Lasix 40 mg twice daily Secondary to significant metabolic alkalosis acetazolamide was added. Bicarbonate improving. Sodium slightly low. Reduce the dose slightly. Fluid restriction Status: Acute (4) Uncontrolled type 2 diabetes mellitus: sliding scale insulin Consistent carb diet Status: Acute (5) Nicotine addiction: Encourage abstinence Status: Acute (6) Atrial fibrillation: Continue amiodarone and metoprolol Currently in sinus rhythm Not a candidate for anticoagulation secondary to severe GI bleeding in the past. Status: Acute Additional A&P Information Hyperthyroidism : Continue methimazole 2.5 mg p.o. daily Full code Lovenox for DVT prophylaxis Attestations Medical Necessity Statement*: Patient is currently awaiting placement to nursing facility. Coding Level of Care Code Acute Desktop Support Technician for [facility] Fwd Exam Detailed Diagnoses Respiratory failure, acute J96.00 COPD (chronic obstructive pulmonary disease) J44.9 Congestive heart failure I50.9 Uncontrolled type 2 diabetes mellitus E11.65 Nicotine addiction F17.200 Atrial fibrillation I48.91
--- NOTE | 2021-08-21 19:12 | PC.NURSE ---
Shift Note Frequent safety and comfort rounds continue. Orders and/or nursing care completed as indicated. Patient monitored for response to intervention and treatment(s). Education provided includes medication and bi pa p use . Patient and/or denial management representative verbalized understanding. Will continue to monitor.
[2021-08-21] MEDS: trazodone 50 mg Tablet PO (19:53)
[2021-08-21] MEDS: diphenhydrAMINE 50 mg Capsule PO (19:53)
[2021-08-22] VITALS (24 sets, daily range): BP systolic 114–138; BP diastolic 65–77; PULSE 65–88; RESP 13–24; TEMP 36.1–36.8; O2SAT 92–99
[2021-08-22] MEDS: ipratropium-albuterol 3 mL Neb INHALATION ×6 (03:05→23:19)
[2021-08-22] MEDS: methIMAzole 5 MG Tablet 2.5 MG PO (05:54)
[2021-08-22] MEDS: roflumilast 500 mcg Tablet PO (05:55)
[2021-08-22] MEDS: pantoprazole DR 40 mg Tablet PO (05:56)
[2021-08-22] MEDS: aspirin 81 mg EC Tablet PO (05:56)
[2021-08-22 06:03] LABS: Glucose Point of Care 135 mg/dL (70-110)
[2021-08-22 06:10] LABS: Glucose Point of Care 195 mg/dL (70-110)
[2021-08-22] MEDS: amiodarone 200 mg Tablet PO (08:26)
[2021-08-22] MEDS: acetaZOLAMIDE 250 mg Tablet 125 MG PO (08:26)
[2021-08-22] MEDS: atorvastatin 40 mg Tablet PO (08:26)
[2021-08-22] MEDS: predniSONE 5 mg Tablet PO (08:26)
[2021-08-22] MEDS: metoprolol tartrate 25 mg Tablet 12.5 MG PO ×2 (08:26→17:39)
[2021-08-22] MEDS: FUROsemide 40 mg Tablet PO ×3 (08:27→21:03)
[2021-08-22] MEDS: budesonide 0.5 mg/2 mL Neb INHALATION ×2 (08:28→20:07)
[2021-08-22 09:29] LABS: Anion Gap 8.6 (5-19); Blood Urea Nitrogen 24 mg/dL (8-23); Calcium 8.7 mg/dL (8.5-10.5); Carbon Dioxide 39 mmol/L (22-29); Chloride 93 mmol/L (98-107); Glomerular Filtration Rate 136.1 mL/min (90-130); Glucose 207 mg/dL (65-115); Osmolality Calculated 294 mOsm/kg (285-295); Potassium 3.6 mmol/L (3.5-5.1); Sodium 137 mmol/L (136-145)
--- NOTE | 2021-08-22 11:26 | P.PN_ITS ---
Subjective Subjective: Interval history: Patient was seen and examined this morning no active complaints,working well with physical therapy.vitals and labs have been stable. Medications: Reviewed: Yes Vitals/I&O/Wt Last Vital Signs Temp 98.0 F 08/22/21 11:21 Pulse 77 08/22/21 11:21 Resp 24 H 08/22/21 11:21 BP 138/77 08/22/21 11:21 Pulse Ox 95 08/22/21 11:21 08/21/21 08/22/21 08/22/21 22:59 06:59 14:59 Intake Total 740 / 1220 240 / 240 Output Total 900 / 1525 300 / 1825 Balance -160 / -305 -300 / -605 240 / 240 Physical Exam Const: COMMON NORMALS: patient oriented x3 HENMT: COMMON NORMALS: normocephalic and atraumatic HEAD & SCALP: normocephalic and atraumatic Resp: EFFORT & INSPECTION: Yes symmetric chest movement OTHER: Diminished air entry bilaterally Cardio: COMMON NORMALS: regular rate, regular rhythm, S1 normal heart sound present, S2 normal heart sound present, No gallops present (Cardio), No murmurs present (Cardio), No rub (Cardio) and Peripheral pulses 2+ throughout RATE: r egular rate RHYTHM: regular rhythm HEART SOUNDS: S1 normal heart sound present and S2 normal heart sound present PERIPHERAL PULSES: Peripheral pulses 2+ throughout GI: COMMON NORMALS: Normal to inspection, nondistended, normoactive bowel sounds present, Soft to palpation, non-tender, No hepatosplenomegaly present and no masses AUSCULTATION: Yes normoactive bowel sounds PALPATION: Yes Soft to palpation and Yes No hepatosplenomegaly present RECTAL EXAM: Yes deferred Extremity: COMMON NORMALS: no clubbing, cyanosis or edema and no pedal edema Neuro: COMMON NORMALS: patient oriented x3 Data : 08/21/21 05:27 08/22/21 08:20 A&P Assessment and plan (1) Respiratory failure, acute: Acute on chronic hypercapnic respiratory failure secondary to end-stage COPD Continue duo nebs Prednisone 5 mg p.o. daily Roflumilast 500 mcg po daily Budesonide inhaler 0.5 mcg inhalation twice daily Completed 3-day course of Augmentin p.o. twice daily Continue BiPAP (will benefit more with disciplined BiPAP use ) Currently at baseline supplemental oxygen requirement at 3 Ls Status: Acute (2) COPD (chronic obstructive pulmonary disease): Not actively wheezing. Continue prednisone 5 mg daily. He did receive Solu-Medrol in the emergency department. Pulmonary toilet every 4 hours Budmissaelonide May require more BiPAP with AVAPS settings or trilogy during the day and certainly all the time at night. He has been resistant to this in the past. Patient is now tolerating BiPAP in the hospital without difficulty. Secondary to the severity of his COPD it would be best to have him do skilled care on discharge for strengthening and further observation He was discharged on Levaquin. He does have some neuro agitation or anxiety which could be related. Status: Acute (3) Congestive heart failure: Currently compensated patient is euvolemic. Continue Lasix 40 mg twice daily Secondary to significant metabolic alkalosis acetazolamide was added. Bicarbonate improving. Sodium slightly low. Reduce the dose slightly. Fluid restriction Status: Acute (4) Uncontrolled type 2 diabetes mellitus: sliding scale insulin Consistent carb diet Status: Acute (5) Nicotine addiction: Encourage abstinence Status: Acute (6) Atrial fibrillation: Continue amiodarone and metoprolol Currently in sinus rhythm Not a candidate for anticoagulation secondary to severe GI bleeding in the past. Status: Acute Additional A&P Information Hyperthyroidism : Continue methimazole 2.5 mg p.o. daily Full code Lovenox for DVT prophylaxis Attestations Medical Necessity Statement*: patient is awaiting placement to assisted. Coding Level of Care Code Acute Salesforce Consultant for [facility] Fwd Exam Detailed Diagnoses Respiratory failure, acute J96.00 COPD (chronic obstructive pulmonary disease) J44.9 Congestive heart failure I50.9 Uncontrolled type 2 diabetes mellitus E11.65 Nicotine addiction F17.200 Atrial fibrillation I48.91
[2021-08-22] MEDS: enoxaparin 40 mg/0.4 mL Syringe SUBCUT (11:39)
[2021-08-22 11:55] LABS: Glucose Point of Care 168 mg/dL (70-110)
[2021-08-22] MEDS: insulin lispro 100 unit/1 mL SUBCUT (17:39)
--- NOTE | 2021-08-22 19:24 | PC.NURSE ---
Shift Note Frequent safety and comfort rounds continue. Orders and/or nursing care completed as indicated. Patient monitored for response to intervention and treatment(s). Education provided includes continued care and medications Patient and/or ambulatory services representative verbalized understanding Will continue to monitor.
--- NOTE | 2021-08-22 19:43 | PC.NURSE ---
spoke with Dr hinds about patient concerns of increased swelling instructions received to give additional Furosemide 40mg PO at [id number]
[2021-08-22 20:23] LABS: Glucose Point of Care 171 mg/dL (70-110)
[2021-08-22] MEDS: diphenhydrAMINE 50 mg Capsule PO (21:03)
[2021-08-22] MEDS: trazodone 50 mg Tablet PO (21:03)
[2021-08-23] VITALS (11 sets, daily range): BP systolic 114–123; BP diastolic 61–72; PULSE 67–85; RESP 15–22; TEMP 36.5–37; O2SAT 73–95
[2021-08-23] MEDS: ipratropium-albuterol 3 mL Neb INHALATION ×3 (02:59→12:48)
[2021-08-23 04:25] LABS: Blood Urea Nitrogen 27 mg/dL (8-23); Calcium 8.4 mg/dL (8.5-10.5); Carbon Dioxide 39 mmol/L (22-29); Chloride 93 mmol/L (98-107); Glomerular Filtration Rate 113.9 mL/min (90-130); Glucose 164 mg/dL (65-115); Osmolality Calculated 293 mOsm/kg (285-295); Sodium 137 mmol/L (136-145)
[2021-08-23 04:39] LABS: Anion Gap 9.1 (5-19)
[2021-08-23 04:40] LABS: Potassium 4.1 mmol/L (3.5-5.1)
[2021-08-23] MEDS: methIMAzole 5 MG Tablet 2.5 MG PO (06:02)
[2021-08-23] MEDS: roflumilast 500 mcg Tablet PO (06:02)
[2021-08-23] MEDS: pantoprazole DR 40 mg Tablet PO (06:03)
[2021-08-23] MEDS: aspirin 81 mg EC Tablet PO (06:03)
[2021-08-23 07:00] LABS: Glucose Point of Care 149 mg/dL (70-110)
[2021-08-23 07:38] LABS: Glucose Point of Care 232 mg/dL (70-110)
[2021-08-23] MEDS: amiodarone 200 mg Tablet PO (07:55)
[2021-08-23] MEDS: acetaZOLAMIDE 250 mg Tablet 125 MG PO (07:55)
[2021-08-23] MEDS: metoprolol tartrate 25 mg Tablet 12.5 MG PO (07:56)
[2021-08-23] MEDS: predniSONE 5 mg Tablet PO (07:56)
[2021-08-23] MEDS: atorvastatin 40 mg Tablet PO (07:56)
[2021-08-23] MEDS: FUROsemide 40 mg Tablet PO (07:57)
[2021-08-23] MEDS: insulin lispro 100 unit/1 mL SUBCUT ×2 (08:01→12:01)
[2021-08-23] MEDS: budesonide 0.5 mg/2 mL Neb INHALATION (08:04)
--- NOTE | 2021-08-23 08:59 | PC.SOCIAL ---
IMM Update Pg. 2 of IMM updated and reviewed with patient who verbalized understanding. Copy provided.
[2021-08-23] MEDS: enoxaparin 40 mg/0.4 mL Syringe SUBCUT (09:43)
[2021-08-23 11:41] LABS: Glucose Point of Care 202 mg/dL (70-110)
--- NOTE | 2021-08-23 12:49 | P.DS_ITS ---
Discharge Providers Date of Admission: 08/18/21 06:32 Date of Discharge: August 23, 2021 Attending Provider at Admission: Talha Benedict Attending Provider at Discharge: Tony Cruz MD Primary Care Provider: Nasreen Gomez Diagnoses at Discharge Discharge Diagnosis (1) Respiratory failure, acute: Status: Acute (2) COPD (chronic obstructive pulmonary disease): Status: Acute (3) Congestive heart failure: Status: Acute (4) Uncontrolled type 2 diabetes mellitus: Status: Acute (5) Nicotine addiction: Status: Acute (6) Atrial fibrillation: Status: Acute Permanent problem details: (7) Acute exacerbation of chronic obstructive airways disease: Status: Acute (8) Moderate aortic stenosis: Status: Acute Reason for Visit Reason for Visit: SOB Hospital Course Hospital Course Nagi Cuellar is a 65 year old male with past medical history of atrial fibrillation, CAD, diastolic congestive heart failure, moderate aortic stenosis, COPD, cor pulmonale, type 2 diabetes mellitus, hypertension, obstructive sleep apnea not compliant with BiPAP who was recently discharged on August 17 after a stay for concern of fluid overload as well as heart failure presented back to the ER within 24 hours of discharge because of difficulty in breathing. On admission he was found to be in severe acute on chronic hypercapnic respiratory failure with pH of 7.26 and CO2 of 109 which was treated with BiPAP ventilation. Patient was found to be in slight fluid overload and COPD exacerbation which was treated with inhalation treatment and IV diuresis. Patient responded well to the treatment. Patient responded well to BiPAP ventilation. On further counseling and discussion with patient patient is more agreeable to BiPAP ventilation and has been compliant with the same during hospitalization. Because of recurrent admissions with similar complaints within the last few months it was advised to patient for discharge to SNF for few weeks for safe discharge planning. He verbalized understanding and was agreeable. Patient is been discharged in hemodynamically stable condition on 4 L oxygen supplementation with BiPAP ventilation at night with advised to follow-up with Dr. Corley from pulmonology within next 7 to 10 days. Physical Exam Narrative: EXAM NARRATIVE: General: No acute distress, AO x3 HEENT: PERRLA, pupils bilaterally equal and reactive Chest: Bilateral bronchial breath sounds, occasional rhonchi all over the lung [place], fine crackles bilaterally in lower zone CVS: S1-S2 regular, ejection systolic murmur at aortic area radiating to carotids 2/6, no tachycardia, no gallops, no rubs Abdomen: Soft, nontender, no organomegaly, bowel sounds present Neuro: No focal deficits, no facial deformity, AO x3, power 5/5 in all limbs Discharge Data Data Completed and Pending: Completed Studies During Hospitalization Category Date Time Status XR chest 1V aftab ble [id number] Urgent Exams 08/18/21 03:12 Completed Labs from last 24 hours 08/23/21 08/23/21 08/23/21 11:21 06:08 02:50 Sodium 137 Potassium 4.1 Chloride 93 L Carbon Dioxide 39 H Anion Gap 9.1 BUN 27 H Creatinine 0.7 GFR Calculation 113.9 Glucose 164 H POC Glucose 202 H 149 H Calculated Osmolal ity 293 Calcium 8.4 L 08/22/21 08/22/21 19:11 17:23 Sodium Potassium Chloride Carbon Dioxide Anion Gap BUN Creatinine GFR Calculation Glucose POC Glucose 171 H 232 H Calculated Osmolal ity Calcium Addt'l Data from Hospital Stay: Laboratory Results WBC 5.1 10^3/uL (4.0- 10.0) 08/21/21 05:27 RBC 4.51 10^6/uL (4.1 -5.3) 08/21/21 05:27 Hgb 13.3 g/dL (11.7-1 6.6) 08/21/21 05:27 Hct 41.2 % (42.0-52.0 ) L 08/21/21 05:27 MCV 91.4 fl (80-94) 08/21/21 05:27 MCH 29.5 pg (28.0-34. 0) 08/21/21 05:27 MCHC 32.3 g/dL (30.0-3 6.0) 08/21/21 05:27 RDW 17.2 % (12.1-15.1 ) H 08/21/21 05:27 Plt Count 148 10^3/cmm (130 -400) 08/21/21 05:27 MPV 11.3 fL (7.4-10.4 ) H 08/21/21 05:27 Neut % (Auto) 70.9 % 08/21/21 05:27 Lymph % (Auto) 13.0 % 08/21/21 05:27 [place] % (Auto) 10.9 % 08/21/21 05:27 Eos % (Auto) 1.6 % 08/21/21 05:27 Baso % (Auto) 0.6 % 08/21/21 05:27 Neut # (Auto) 3.59 10^3/uL (1.8 -7.7) 08/21/21 05:27 Lymph # (Auto) 0.7 10^3/uL (0.8- 4.8) L 08/21/21 05:27 [place] # (Auto) 0.6 10^3/uL (0.2- 0.9) 08/21/21 05:27 Eos # (Auto) 0.1 10^3/uL (0.0- 0.8) 08/21/21 05:27 Baso # (Auto) 0.0 10^3/uL (0.0- 0.1) 08/21/21 05:27 Nucleated RBC % (a uto) 0 % 08/21/21 05: Nucleated RBCs # 0.0 /100WBC 08/21/21 05:27 PT 12.80 SECONDS (12 .1-14.9) 08/18/21 03:15 INR 0.93 (0.8-1.2) 08/18/21 03:15 Specimen Type Arterial 08/18/21 04:22 Sample Site Radial, right 08/18/21 04:22 ABG pH 7.26 (7.35-7.45) L 08/18/21 04:22 ABG pCO2 109.0 mmHg (35-45 ) H* 08/18/21 04:22 ABG pO2 114.0 mmHg (80.0- 100.0) H 08/18/21 04:22 ABG HCO3 48.5 mmol/L (22-2 6) H 08/18/21 04:22 ABG Base Excess 15.5 mmol/L (-2.0 -2.0) H 08/18/21 04:22 Gee Test Pos 08/18/21 04:22 Hematocrit 44.7 % (42-52) 08/18/21 04:22 O2 Delivery Device Nc 08/18/21 04:22 O2 Liters/Min 5.0 % 08/18/21 04:22 Layer Up ID [email or web address] 08/18/21 04:22 Sodium 137 mmol/L (136-1 45) 08/23/21 02:50 Potassium 4.1 mmol/L (3.5-5 .1) 08/23/21 02:50 Chloride 93 mmol/L (98-107 ) L 08/23/21 02:50 Carbon Dioxide 39 mmol/L (22-29) H 08/23/21 02:50 Anion Gap 9.1 (5-19) 08/23/21 02:50 BUN 27 mg/dL (8-23) H 08/23/21 02:50 Creatinine 0.7 mg/dL (0.7-1. 2) 08/23/21 02:50 GFR Calculation 113.9 mL/min (90- 130) 08/23/21 02:50 Glucose 164 mg/dL (65-115 ) H 08/23/21 02:50 POC Glucose 202 mg/dL (70-110 ) H 08/23/21 11:21 Calculated Osmolal ity 293 mOsm/kg (285- 295) 08/23/21 02:50 Calcium 8.4 mg/dL (8.5-10 .5) L 08/23/21 02:50 Magnesium 2.0 mg/dL (1.7-2. 3) 08/19/21 04:09 Total Bilirubin 0.2 mg/dL (0.15-1 .2) 08/19/21 04:09 AST 11 U/L (0-40) 08/19/21 04:09 ALT 20 U/L (0-41) 08/19/21 04:09 Alkaline Phosphata se 59 IU/L (40-130) 08/19/21 04:09 NT-Pro-B Natriuret Pep 639 pg/mL (0-125) H 08/18/21 03:15 Total Protein 5.6 g/dL (6.6-8.7 ) L 08/19/21 04:09 Albumin 3.2 g/dL (3.5-5.2 ) L 08/19/21 04:09 Globulin 2.4 g/dL (1.3-4.6 ) 08/19/21 04:09 Impressions Chest X-Ray 08/18/21 03:12 IMPRESSION: Diffuse moderate pulmonary edema. Radiation Dose CTDIVOL = (mGy): DLP = (mGy-cm) Vitals: Last Vital Signs Temp 98.4 F 08/23/21 11:14 Pulse 72 08/23/21 11:14 Resp 16 08/23/21 11:14 BP 114/61 08/23/21 11:14 Pulse Ox 92 08/23/21 11:14 Discharge Plan Discharge Patient Disposition: Xfer [facility] Condition: Stable Prescriptions: New Combivent Respimat 20-100 mcg/actuation mist 1 puff inhalation Q6H Qty: 4 RF: 0 acetazolamide 250 mg Tablet 125 mg PO EVERY OTHER DAY 30 Days Qty: 8 RF: 0 Continued Pacerone 200 mg tablet 200 mg PO DAILY RF: 0 Vitamin B12 Gummies 1 - 2 tab PO DAILY RF: 0 formoterol fumarate [Perforomist] 20 mcg/2 mL Solution For Nebulization 2 ml INHALATION BID RF: 0 Farxiga 10 mg tablet 10 mg PO QAM RF: 0 Triple Antibiotic 3.5mg-400 unit- 5,000 unit/gram Ointment 1 applic topical DAILY Qty: 15 RF: 0 aspirin 81 mg tablet,delayed release (DR/EC) 81 mg PO QAM RF: 0 potassium chloride 20 mEq tablet extended release 20 meq PO BID RF: 0 benzonatate 100 mg Capsule 100 mg PO TID PRN (Reason: Cough) Qty: 14 RF: 0 budesonide [Pulmicort] 0.5 mg/2 mL suspension for nebulization 0.5 mg inhalation BID Qty: 60 RF: 0 furosemide 40 mg tablet 40 mg PO BID Qty: 0 RF: 0 trazodone 50 mg Tablet 50 mg PO BEDTIME RF: 0 methimazole 5 mg tablet 2.5 mg PO QAM RF: 0 rosuvastatin 10 mg tablet 10 mg PO DAILY RF: 0 Daliresp 500 mcg tablet 500 mcg PO QAM RF: 0 Januvia 50 mg tablet 50 mg PO QAM RF: 0 omeprazole 40 mg capsule,delayed release(DR/EC) 40 mg PO QAM RF: 0 Jardiance 25 mg tablet 25 mg PO QAM RF: 0 Changed Lantus Solostar U-100 Insulin 100 unit/mL (3 mL) insulin pen 10 unit SUBCUT BEDTIME Qty: 0 RF: 0 metoprolol tartrate 25 mg tablet 25 mg PO BID Qty: 0 RF: 0 Discontinued Spiriva Respimat 1.25 mcg/actuation mist 2 puff inhalation DAILY RF: 0 prednisone 5 mg Tablet 5 mg PO DAILY Qty: 5 RF: 0 levofloxacin 750 mg Tablet 750 mg PO DAILY@0600 Qty: 4 RF: 0 Entresto 24-26 mg Tablet 1 tab PO BID RF: 0 Discharge Orders: Discharge Order (Routine); Ordered 08/23/21 Ordered By: Tony Cruz Referrals: [facility] [place] [Outside] Nasreen Gomez PA [Primary Care Provider] - Nick Corley MD [Physician] - 7-10 days Discharge Diet: Cardiac, Diabetic and Low Salt Discharge Activity: Resume usual activity Patient Instructions: Acetazolamide (By mouth) (Diamox Sequels), Ipratropium/Albuterol (By breathing) (Combivent, Combivent..., Opioid Safety Activity Restrictions/Additional Instructions: follow up with Dr. Corley in 10 days Discharge Attestations Time Spent in Discharge Care*: greater than 30 min Specific Discharge Activities: educating patient, discussing with pcp/other providers, discussing with porter sample case/social workers/dc planners, documenting/other paperwork and evaluating patient/reviewing data Status at Discharge: Cognitive status at discharge: cognitively intact , Behavioral status at discharge: cooperative , Functional status at discharge: uses cane/walker Overall status at discharge: patient is back to baseline Quality Metrics Clinical Quality Measures During this hospital stay, did patient experience: None Coding Level of Care Code Acute [facility] DC note Diagnoses Respiratory failure, acute J96.00 COPD (chronic obstructive pulmonary disease) J44.9 Congestive heart failure I50.9 Uncontrolled type 2 diabetes mellitus E11.65 Nicotine addiction F17.200 Atrial fibrillation I48.91 Acute exacerbation of chronic obstructive airways disease J44.1 Moderate aortic stenosis I35.0
--- NOTE | 2021-08-23 14:18 | PC.NURSE ---
pt education provided. pt awaiting transport to SNF.
--- NOTE | 2021-08-24 12:03 | PC.SOCIAL ---
patients brother called stating that since patient had been at the intermediate, patient hadn't received any medications. this nurse called and spoke with Venus, patients nurse at [facility]. she reported for some reason the pharmacy didn't get the medications delivered but that they should be there anytime. food writer attempted to contact patients contact, life partner unsuccessful.
== END 2021-08-23 14:42 | disposition skilled nursing facility (03) | DRG 189 ==
LOC: ER 05:43 → ICU 06:43 → CSU 08-20 18:57
PROVIDERS: Internal Medicine; Admitting Provider Hospitalist; Emergency Provider Emergency Medicine; PCP Physician Assistant; Visit Provider Student in an Organized Health Care Education/Training Program
DX: J96.22 Acute and chronic respiratory failure with hypercapnia (principal); I50.31 Acute diastolic (congestive) heart failure; J44.1 Chronic obstructive pulmonary disease with (acute) exacerbation; E87.3 Alkalosis; Z99.81 Dependence on supplemental oxygen; I48.91 Unspecified atrial fibrillation; I11.0 Hypertensive heart disease with heart failure; E11.65 Type 2 diabetes mellitus with hyperglycemia; I25.2 Old myocardial infarction; G47.33 Obstructive sleep apnea (adult) (pediatric); Z87.01 Personal history of pneumonia (recurrent); F17.210 Nicotine dependence, cigarettes, uncomplicated; I35.0 Nonrheumatic aortic (valve) stenosis; I25.10 Atherosclerotic heart disease of native coronary artery without angina pectoris; I27.81 Cor pulmonale (chronic); Z79.4 Long term (current) use of insulin; Z79.84 Long term (current) use of oral hypoglycemic drugs; Z79.82 Long term (current) use of aspirin
CPT/HCPCS: 36415; 36416; 36600; 71045; 80048; 80053; 82803; 82962; 83735; 83880; 85025; 85610; 93005; 94640; 94660; 96372; 96374; 97110; 97116; 97161; 97167; 97535; 99285; J1650; J1815; J2930; J7512; J7611; J7626; Q0163

== ENCOUNTER → 2021-09-27 15:33 | Outpatient (BNVA) | payer MEDICARE, MEDICAID, SELFPAY | PROVIDERS: PCP Physician Assistant; Visit Provider Nurse Practitioner Family | DX: Z20.822 Contact with and (suspected) exposure to COVID-19 (principal) | CPT/HCPCS: 87635 ==

== ENCOUNTER 2021-10-01 14:42 | Inpatient (IN) | payer MEDICARE, MEDICAID, SELFPAY ==
[2021-10-01] VITALS (8 sets, daily range): BP systolic 91–122; BP diastolic 53–74; PULSE 65–123; RESP 19–26; TEMP 37–37.1; O2SAT 94–98; BMI 33.3; BMI 31.5
--- NOTE | 2021-10-01 15:13 | W.ED.COVID ---
HPI - COVID General: Chief Complaint: Shortness of Breath/Dyspnea Stated Complaint: SOB, COVID Time Seen by Provider: 10/01/21 15:12 Triage information: Has fever, cough or shortness of breath. Exposure to COVID + person last 14 days History of Present Illness: HPI Narrative: 65-year-old male presents emergency room complaining of shortness of breath myalgias for the last 3 days. Initially began with some diarrhea. Patient has not been immunized. But he has been exposed to Covid his girlfriend has it started having symptoms earlier this week. MD complaint: has COVID symptoms Prior covid testing: no COVID 19 common symptoms: positive fever(s), chills, cough, productive cough, dyspnea, fatigue, body aches, headache(s), throat pain, nasal congestion, nausea, diarrhea and chest tightness COVID 19 other sytmptoms: positive chest pressure, requiring more oxygen and respiratory distress; negative chest pain Onset (ago): day(s) (3) Severity: moderate Pertinent comorbid conditions: diabetes, heart disease, COPD/respiratory disease, chronic kidney disease and on home oxygen Treatment prior to arrival: oxygen COVID Results: SARS-CoV-2 Antigen (Rapid) Negative (Negative) 07/18/21 05:43 07/18/21 SARS-CoV-2 RNA (RT-PCR) Detected (NOT DETECTED) A 09/27/21 15:33 09/27/21 Nasal/Oral Coronavirus 2019 PCR Not detected 08/15/21 22:20 08/15/21 Review of Systems Const: Reports: fever(s), chills, body aches and fatigue ENMT: Reports: throat pain and nasal congestion Card: Denies: chest pain, edema, dyspnea on exertion or orthopnea Resp: Reports: dyspnea and productive cough GI: Reports: nausea and diarrhea : Denies: flank pain, dysuria, urinary frequency or urinary urgency Skin/Breast: Denies: rash or pruritus Neuro: Reports: headache(s) PFSH ED PFSH: Medical History Acute exacerbation of chronic obstructive airways disease Acute hypercapnic respiratory failure Atrial fibrillation Atrial fibrillation with rapid ventricular response CAD (coronary artery disease) Chest pain CHF (congestive heart failure) Chronic kidney disease, stage II (mild) Chronic respiratory failure with hypoxia Congestive heart failure COPD (chronic obstructive pulmonary disease) Cor pulmonale Diabetes Elevated troponin I level Heart attack Hypertension Hypoxia Moderate aortic stenosis Nicotine addiction DAYNE (obstructive sleep apnea) Pneumonia Surgical History H/O hernia repair Family History Mother Lung disease COPD Sister Cancer Social History Smoking and tobacco status: current every day smoker cigarettes Years cigarettes smoked: 47 [ Other cigarette details: Hx of 2PPD x 47 Years ] Quit status (tobacco): considering quitting Second hand smoke exposure: Yes Smoking risk assessment/counseling performed?: Yes Alcohol intake: current Alcohol intake frequency: holidays/special occasions only Desire information about alcohol rehabilitation?: No Counseling given: No Desire information about substance/drug rehabilitation?: No Counseling given: No Lives independently: Yes Household members: none Marital status: Single Current occupational status: disabled and 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 History of recent travel: No Current gender identity: Male Physical Exam Const: COMMON NORMALS: no acute distress GENERAL APPEARANCE: cooperative and comfortable ORIENTATION/CONSCIOUSNESS: Yes awake, Yes oriented to person, Yes oriented to place and Yes oriented to time HENMT: COMMON NORMALS: normocephalic, atraumatic and hearing grossly normal bilaterally HEAD & SCALP: normocephalic and atraumatic Resp: AUSCULTATION: crackles, rhonchi and wheezes Cardio: RATE: tachycardic GI: COMMON NORMALS: Soft to palpation and No hepatosplenomegaly present AUSCULTATION: Yes normoactive bowel sounds PALPATION: Yes Soft to palpation, No Tenderness to palpation present (GI), No Guarding due to palpation present (GI) and Yes No hepatosplenomegaly present Extremity: COMMON NORMALS: normal to inspection, capillary refill normal, no clubbing, cyanosis or edema, no calf tenderness and no pedal edema Neuro: SENSORIUM/ORIENTATION: Yes oriented to person, Yes oriented to place and Yes oriented to time Skin: COMMON NORMALS: no rashes or lesions noted GENERAL SKIN EXAM: no rashes or lesions noted Course Vital Signs: Vital signs: Vital Signs Temperature 98.4 F 10/02/21 08:00 Pulse Rate 91 10/02/21 08:45 Respiratory Rate 18 10/02/21 08:45 Blood Pressure 132/82 10/02/21 08:00 Pulse Oximetry 92 10/02/21 08:45 MDM - COVID MDM Narrative: Medical decision making narrative: Patient has Covid pneumonitis with exacerbation COPD. Admit for respiratory support he is requiring BiPAP at this time also start antibiotics. Discussed with hospitalist orders written. Lab Data: Labs: Lab Results 10/01/21 10/01/21 10/01/21 16:15 16:45 16:45 WBC 8.1 10^3/uL 10^3/ uL (4.0-10.0) RBC 5.11 10^6/uL 10^6 /uL (4.1-5.3) Hgb 14.5 g/dL g/dL (11.7-16.6) Hct 44.9 % % (42.0-52.0) MCV 87.9 fl fl (80-94) MCH 28.4 pg pg (28.0-34.0) MCHC 32.3 g/dL g/dL (30.0-36.0) RDW 17.4 % H % (12.1-15.1) Plt Count 300 10^3/cmm 10^3 /cmm (130-400) MPV 10.8 fL H fL (7.4-10.4) Neut % (Auto) 82.6 % % Lymph % (Auto) 4.6 % % [place] % (Auto) 11.5 % % Eos % (Auto) 0.2 % % Baso % (Auto) 0.2 % % Neut # (Auto) 6.65 10^3/uL 10^3 /uL (1.8-7.7) Lymph # (Auto) 0.4 10^3/uL L 10^ 3/uL (0.8-4.8) [place] # (Auto) 0.9 10^3/uL 10^3/ uL (0.2-0.9) Eos # (Auto) 0.0 10^3/uL 10^3/ uL (0.0-0.8) Baso # (Auto) 0.0 10^3/uL 10^3/ uL (0.0-0.1) Nucleated RBC % (a uto) 0 % % Nucleated RBCs # 0.0 /100WBC /100W BC D-Dimer 1.61 ug/mIFEU H u g/mIFEU (0-0.59) Specimen Type Arterial Sample Site Brachial, left ABG pH 7.37 (7.35-7.45) ABG pCO2 66.3 mmHg H* mmHg (35-45) ABG pO2 44.2 mmHg L mmHg (80.0-100.0) ABG HCO3 37.8 mmol/L H mmo l/L (22-26) ABG Base Excess 9.7 mmol/L H mmol /L (-2.0-2.0) Gee Test Pos Hematocrit 42.8 % % (42-52) O2 Delivery Device Nc O2 Liters/Min 6.0 % % Stone Operator ID Cak Sodium Potassium Chloride Carbon Dioxide Anion Gap BUN Creatinine GFR Calculation Glucose Calculated Osmolal ity Lactic Acid Calcium Total Bilirubin AST ALT Alkaline Phosphata se C-Reactive Protein Total Protein Albumin Globulin 10/01/21 10/01/21 16:45 16:45 WBC RBC Hgb Hct MCV MCH MCHC RDW Plt Count MPV Neut % (Auto) Lymph % (Auto) [place] % (Auto) Eos % (Auto) Baso % (Auto) Neut # (Auto) Lymph # (Auto) [place] # (Auto) Eos # (Auto) Baso # (Auto) Nucleated RBC % (a uto) Nucleated RBCs # D-Dimer Specimen Type Sample Site ABG pH ABG pCO2 ABG pO2 ABG HCO3 ABG Base Excess Gee Test Hematocrit O2 Delivery Device O2 Liters/Min Stone Operator ID Sodium 142 mmol/L mmol/L (136-145) Potassium 4.1 mmol/L mmol/L (3.5-5.1) Chloride 97 mmol/L L mmol/ L (98-107) Carbon Dioxide 36 mmol/L H mmol/ L (22-29) Anion Gap 13.1 (5-19) BUN 45 mg/dL H mg/dL (8-23) Creatinine 1.7 mg/dL H mg/dL (0.7-1.2) GFR Calculation 40.9 mL/min L mL/ min (90-130) Glucose 115 mg/dL mg/dL (65-115) Calculated Osmolal ity 306 mOsm/kg H mOs m/kg (285-295) Lactic Acid 1.2 mmol/L mmol/L (0.5-2.2) Calcium 8.8 mg/dL mg/dL (8.5-10.5) Total Bilirubin 0.3 mg/dL mg/dL (0.15-1.2) AST 20 U/L U/L (0-40) ALT 37 U/L U/L (0-41) Alkaline Phosphata se 73 IU/L IU/L (40-130) C-Reactive Protein 210.6 mg/L H mg/L (0.0-4.9) Total Protein 7.1 g/dL g/dL (6.6-8.7) Albumin 3.2 g/dL L g/dL (3.5-5.2) Globulin 3.9 g/dL g/dL (1.3-4.6) COVID Results: SARS-CoV-2 Antigen (Rapid) Negative (Negative) 07/18/21 05:43 07/18/21 SARS-CoV-2 RNA (RT-PCR) Detected (NOT DETECTED) A 09/27/21 15:33 09/27/21 Nasal/Oral Coronavirus 2019 PCR Not detected 08/15/21 22:20 08/15/21 Discharge Plan Discharge Patient Disposition: Admitted As Inpatient Admit Provider: Marcos Rubin Clinical Impression: COVID-19, Acute on chronic respiratory failure with hypoxemia, Acute exacerbation of chronic obstructive airways disease, Coronary artery disease due to type 2 diabetes mellitus, Uncontrolled type 2 diabetes mellitus, Nicotine addiction, Moderate aortic stenosis, D-dimer, elevated, Congestive heart failure, Atrial fibrillation Condition: Stable Coding Level of Care Code ED Supply Chain Associate for [place] Fwd Exam Detailed
--- NOTE | 2021-10-01 15:15 | ECG_ITS ---
[facility] Test Date: 2021-10-01 Pat Name: Nagi Cuellar Department: Room: Gender: Male Pin Maker: : [id number] Requested By: Nagi Arita Order Number: [id number] Reading MD: ADAN ENRIQUEZ Measurements Intervals [place] Rate: 78 P: 43 MN: 202 QRS: 32 QRSD: 93 T: 51 QT: 368 QTc: 420 Interpretive Statements SINUS RHYTHM INCOMPLETE RIGHT BUNDLE BRANCH BLOCK [90+ ms QRS DURATION, TERMINAL R IN V1/V2, 40+ ms S IN I/aVL/V4/V5/V6] SEPTAL MYOCARDIAL INFARCTION , OF INDETERMINATE AGE [40+ ms Q WAVE IN V1/V2] Compared to ECG 08/18/2021 03:19:32 Myocardial infarct finding now present Electronically Signed On 10-04-2021 12:56:34 CORPORATE ASSOCIATE ATTORNEY by ADAN ENRIQUEZ [id number]
--- NOTE | 2021-10-01 15:15 | XR_ITS ---
WS: [id number] PORTABLE CHEST HISTORY: dyspnea COMPARISON: 08/18/2021 Increasing bibasilar areas of atelectasis. Mild haziness over both lungs otherwise mildly improved. N o pleural effusion or pneumothorax. Cardiac size: Normal. Mediastinum/Aorta: Normal mediastinum. Calcific density in the LEFT axillary recess. XR/XR chest 1V portable [id number] IMPRESSION: 1. Worsening bibasilar areas of atelectasis, RIGHT greater than LEFT. 2. Otherwise mild improvement of the interstitial thickening.
--- NOTE | 2021-10-01 16:23 | PC.PHAR ---
pts girlfriend aurelia states the pt has home health with [facility]-called [facility] to get a med list faxed but no answer-pts girlfriend aurelia verified the pts medications-rx filled 09/13/21 30d/s for entresto 1 tab bid-pts discharge from 08/23/21 has this medication as dced-pts girlfriend states the pt is still taking-notes are made in the pharmacy comments
[2021-10-01 16:26] LABS: Base Excess ABG 9.7 mmol/L (-2.0-2.0); Blood Gas Allen Test Pos; Blood Gas Operator Identificat CAK; Blood Gas Sample Type Arterial; Oxygen Device NC
[2021-10-01] MEDS: dexamethasone 10 mg/mL INJ 6 MG IVP (16:50)
[2021-10-01 16:52] LABS: ABG PH Result 7.37 (7.35-7.45); Arterial Blood Gas Hematocrit 42.8 % (42-52); Blood Gas Sample Site Brachial, left; HCO3 ABG 37.8 mmol/L (22-26); PO2 ABG 44.2 mmHg (80.0-100.0)
[2021-10-01 16:55] LABS: ABG PCO2 66.3 mmHg (35-45)
[2021-10-01 17:05] LABS: Basophils % 0.2 %; Eosinophils % 0.2 %; Hematocrit 44.9 % (42.0-52.0); Hemoglobin 14.5 g/dL (11.7-16.6); Lymphocytes # 0.4 10^3/uL (0.8-4.8); Lymphocytes % 4.6 %; Mean Corpuscular HGB Conc 32.3 g/dL (30.0-36.0); Mean Corpuscular Hemoglobin 28.4 pg (28.0-34.0); Mean Corpuscular Volume 87.9 fl (80-94); Mean Platelet Volume 10.8 fL (7.4-10.4); Monocytes # 0.9 10^3/uL (0.2-0.9); Monocytes % 11.5 %; Neutrophils # 6.65 10^3/uL (1.8-7.7); Neutrophils % 82.6 %; Nucleated Red Blood Cells % 0 %; Platelet Count 300 10^3/cmm (130-400); Red Blood Count 5.11 10^6/uL (4.1-5.3); Red Cell Distribution Width 17.4 % (12.1-15.1); White Blood Count 8.1 10^3/uL (4.0-10.0)
[2021-10-01 17:23] LABS: D Dimer 1.61 ug/mIFEU (0-0.59)
[2021-10-01 17:32] LABS: Alanine Aminotransferase 37 U/L (0-41); Albumin Level 3.2 g/dL (3.5-5.2); Alkaline Phosphatase 73 IU/L (40-130); Anion Gap 13.1 (5-19); Aspartate Amino Transferase 20 U/L (0-40); C Reactive Protein 210.6 mg/L (0.0-4.9); Carbon Dioxide 36 mmol/L (22-29); Chloride 97 mmol/L (98-107); Globulin 3.9 g/dL (1.3-4.6); Glucose 115 mg/dL (65-115); Potassium 4.1 mmol/L (3.5-5.1); Sodium 142 mmol/L (136-145); Total Bilirubin 0.3 mg/dL (0.15-1.2); Total Protein 7.1 g/dL (6.6-8.7)
[2021-10-01 17:37] LABS: Slide Review Slide Review Perform
[2021-10-01 17:45] LABS: Blood Urea Nitrogen 45 mg/dL (8-23); Calcium 8.8 mg/dL (8.5-10.5); Glomerular Filtration Rate 40.9 mL/min (90-130); Osmolality Calculated 306 mOsm/kg (285-295)
[2021-10-01] MEDS: levofloxacin-dextrose 5 % 750 MG/150 ML PREMIX 100 MG IV (19:21)
[2021-10-01 20:01] LABS: Lactic Sepsis W/Reflex 1.2 mmol/L (0.5-2.2)
--- NOTE | 2021-10-01 20:35 | PC.NURSE ---
called for update on room for third time. this nurse went to update pt, who has bcome very agitated hes not in his room, pt sleeping at this time.
--- NOTE | 2021-10-01 23:48 | P.HP_ITS ---
Providers/Chief Complaint Admitting Physician: Marcos Rubin MD Primary Care Provider: Nasreen Gomez Chief Complaint: SOB, COVID History of Present Illness 65-year-old male with a past medical history significant for hypertension, dyslipidemia, hyperthyroidism, paroxysmal atrial fibrillation not on anticoagulation due to GI beed, coronary artery disease, moderate aortic stenosis, chronic grade 2 diastolic dysfunction, obstructive sleep apnea using BIPAP, chronic obstructive pulmonary disease, chronic hypoxic/hypercapnic respiratory failure on 4L of o2 via NC and recent diagnosis of COVID-19 on 09/27 who presented to ER with shortness of breath. Patient has been admitted multiple times in the past for COPD exacerbation and pneumonia. Laboratory workup on arrival showed a WBC of 8.1, hemoglobin 14.5, hematocrit of 44.9 and platelet count of 300. Sodium 142, potassium 4.1, chloride 97, bicarb 26, BUN 45 and creatinine of 1.7. CRP of 210. ABG showed a PH of 7.37, PCO2 of 66.3, PO2 of 44.2 and a HCO3 of 37.8 on 6L. D-dimer of 1.61. Imaging studies included chest x-ray which showed worsening bibasilar areas of atelectasis right greater than left with mild improvement in interstitial thickening. In ER patient was given decahedron 6 mg IV x 1, Levaquin 750 mg IV x1 and neb tx prior to admission. He was requiring 6L of o2 via NC. Review of Systems General: Reports: 10 or more systems reviewed and unremarkable except in HPI and below Medications/Allergies Home Medications Medication Instructions Recorded Confirmed Last Taken Type methimazole 2.5 mg PO QAM 01/15/21 10/01/21 07/17/21 History Jardiance 25 mg PO QAM 07/18/21 10/01/21 07/17/21 History omeprazole 40 mg PO QAM 07/18/21 10/01/21 07/17/21 History sitagliptin 50 mg tablet 50 mg PO QAM tab 07/23/21 10/01/21 Unknown History Farxiga 10 mg PO QAM 08/02/21 10/01/21 Unknown History Vitamin B12 Gummies 1 - 2 tab PO DAILY 08/02/21 10/01/21 Unknown History formoterol fumarate [Perforomist] 2 ml INHALATION BID 08/02/21 10/01/21 Unknown History amiodarone 200 mg tablet 200 mg PO DAILY tab 08/10/21 10/01/21 Unknown History aspirin 81 mg PO QAM 08/12/21 10/01/21 Unknown History potassium chloride 20 meq PO BID 08/12/21 10/01/21 Unknown History benzonatate 100 mg PO TID PRN #14 cap 08/17/21 10/01/21 Unknown Rx furosemide 40 mg PO BID #0 tab 08/17/21 10/01/21 Unknown Rx ipratropium-albuterol [Combivent 1 puff INHALATION Q6H #4 g 08/23/21 10/01/21 Unknown Rx Respimat] revefenacin 175 mcg/3 mL solution 175 mcg INHALATION DAILY #90 ml 08/30/21 10/01/21 Unknown Rx for nebulization metolazone 2.5 mg tablet 2.5 mg PO .COMPLEX 60 Days #35 tab 09/03/21 10/01/21 Unknown Rx insulin glargine 100 unit/mL (3 20 unit SUBCUT BEDTIME ml 09/21/21 10/01/21 Unknown History mL) subcutaneous pen trazodone 50 mg tablet 100 mg PO BEDTIME tab 09/21/21 10/01/21 Unknown History azithromycin 250 mg tablet 250 mg PO .COMPLEX 60 Days #30 tab 09/22/21 10/01/21 Unknown Rx metoprolol tartrate 50 mg PO BID 10/01/21 10/01/21 Unknown History rosuvastatin 20 mg PO DAILY 10/01/21 10/01/21 Unknown History sacubitril-valsartan [Entresto] 1 tab PO BID 10/01/21 10/01/21 Unknown History Allergies Allergy/AdvReac Type Severity Reaction Status Date / Time No Known Allergies Allergy Verified 09/27/21 15:04 PFSH Acute PFSH: Medical History Acute exacerbation of chronic obstructive airways disease Acute hypercapnic respiratory failure Atrial fibrillation Atrial fibrillation with rapid ventricular response CAD (coronary artery disease) Chest pain CHF (congestive heart failure) Chronic kidney disease, stage II (mild) Chronic respiratory failure with hypoxia Congestive heart failure COPD (chronic obstructive pulmonary disease) Cor pulmonale Diabetes Elevated troponin I level Heart attack Hypertension Hypoxia Moderate aortic stenosis Nicotine addiction DAYNE (obstructive sleep apnea) Pneumonia Surgical History H/O hernia repair Family History Mother Lung disease COPD Sister Cancer Social History Smoking and tobacco status: current every day smoker cigarettes Years cigarettes smoked: 47 [ Other cigarette details: Hx of 2PPD x 47 Years ] Quit status (tobacco): considering quitting Second hand smoke exposure: Yes Smoking risk assessment/counseling performed?: Yes Alcohol intake: current Alcohol intake frequency: holidays/special occasions only Desire information about alcohol rehabilitation?: No Counseling given: No Desire information about substance/drug rehabilitation?: No Counseling given: No Lives independently: Yes Household members: none Marital status: Single Current occupational status: disabled and 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 History of recent travel: No Current gender identity: Male Vitals/I&O/Wt Last Vital Signs Temp 98.7 F 10/01/21 22:06 Pulse 65 10/01/21 22:19 Resp 26 H 10/01/21 22:06 BP 114/70 10/01/21 22:06 Pulse Ox 95 10/01/21 22:19 10/01/21 10/01/21 10/02/21 14:59 22:59 06:59 Intake Total 390 / 390 Output Total 275 / 275 Balance 115 / 115 Weight last 48 hrs Weight 85.91 kg Weight 90.718 kg Physical Exam Narrative: EXAM NARRATIVE: General : Sleepy on 6L of O2 via NC HEENT: Grossly Unremarkable CVS: RRR Chest: Mildly labored respiration, decreased at bases Abd: Soft, NT,ND Ext; Mild B/L edema Data : 10/01/21 16:45 10/01/21 16:45 Micro: Microbiology 10/01/21 16:45 Blood Culture - Preliminary Blood SPECIMEN COLLECTED 10/01/21 16:45 Blood Culture - Preliminary Blood SPECIMEN COLLECTED 10/01/21 16:06 Gram Stain - Final Sputum - Expectorated Sputum A&P Assessment and plan (1) Acute on chronic respiratory failure with hypoxemia: Status: Acute (2) COVID-19: Status: Acute (3) Acute kidney injury: Status: Acute (4) D-dimer, elevated: Status: Acute (5) COPD (chronic obstructive pulmonary disease): Status: Acute (6) Hyperthyroidism: Status: Acute Additional A&P Information Acute on chronic hypoxemic/hypercapnic respiratory failure with possible superimposed pneumonia / COPD exacerbation / COVID-19 infection ( see below) - ABG PH of 7.37, PCO2 of 66.3, PO2 of 44.2 and a HCO3 of 37.8 on 6L - Supplemental 02 as needed - on 4L at baseline - currently 6L - Respiratory consult for BIPAP - Duoneb q6hr scheduled - Pulmicort 0.5 mg Inh BID - Continue Decadron 6 mg IV daily - Empirically started on zosyn 3.375g IV q6hr - S/p Levaquin 750 mg IV x 1 in ER - Sputum culture if able to obtain - No hx of MRSA - holding vancomycin - Wean Bipap as tolerated - Consider pulmonary consult COVID 19 Infection - Dx on 09/27 - Decadron 6 mg IV daily - Consider Remdesivir +/- Actemra - CRP 210 - Pro-calcitonin in am - Repeat PCR was sent in ER D-dimer Positive - 1.61 - High PPV given covid-19, worsening respiratory failure - Started on Heparin drip per protocol - Monitor hemoglobin given hx of GI bleed - CTA chest once renal function improves - Can consider V/Q scan if available Acute Renal failure - Creatinine increased to 1.7 - Holding Diuretic for now - Renal dosing of meds - Repeat BMP in am - Monitor u/o Severe Obstructive Sleep Apnea - Non-compliant with Bipap at home - Reordered Chronic diastolic HF - Grade 2 - Holding diuretics due to KEI - Recent ECHO in 07/2021 - pEF - Daily weight - Will likely need diuresis Diabetes Mellitus - Sliding scale insulin - Diabetic diet - QACHS glucose checks Hx of GI bleed - Protonix - Prior EGD- gastritis - Capsule endoscopy at [facility] - no records available - Monitor h/h - as pt was started on heparin drip DVT ppx - Heparin drip - SCD Additional Medical Problems - Paroxysmal Atrial Fibrillation - Moderate Aortic Stenosis - Hypertension - Hyperlipidemia - Hyperthyroidism * Verify Remainder of home meds in AM Attestations Medical Necessity Statement*: Will require over 2 midnight stay in hospital for evaluation treatment Time Spent in Patient Care: Greater than 35 minutes (>than 50% of time spent in counselling and/or direct pt care on unit) . Coding Level of Care Code Acute Digital Production Artist for Chg Fwd Diagnoses Acute on chronic respiratory failure with hypoxemia J96.21 COVID-19 U07.1 Acute kidney injury N17.9 D-dimer, elevated R79.89 COPD (chronic obstructive pulmonary disease) J44.9 Hyperthyroidism E05.90
[2021-10-01] MEDS: heparin 5,000 unit/mL INJ 1 mL 5000 UNIT SUBCUT (23:59)
[2021-10-02] VITALS (15 sets, daily range): BP systolic 114–132; BP diastolic 70–84; PULSE 60–92; RESP 15–24; TEMP 36.6–37.1; O2SAT 90–96
[2021-10-02] MEDS: ipratropium-albuterol 3 mL Neb INHALATION ×4 (02:26→20:43)
[2021-10-02] MEDS: piperacillin-tazobactam 3.375 GM in sodium chloride 0.9% (plus) 50 ML IV ×3 (05:09→21:11)
[2021-10-02] MEDS: aspirin 81 mg EC Tablet PO (05:09)
[2021-10-02] MEDS: methIMAzole 5 MG Tablet 2.5 MG PO (05:09)
[2021-10-02 06:47] LABS: Glucose Point of Care 294 mg/dL (70-110)
[2021-10-02] MEDS: budesonide 0.5 mg/2 mL Neb INHALATION ×2 (08:45→20:43)
[2021-10-02] MEDS: heparin 5,000 unit/mL INJ 1 mL IV (08:47)
[2021-10-02] MEDS: amiodarone 200 mg Tablet PO (08:47)
[2021-10-02] MEDS: metoprolol tartrate 50 mg Tablet PO ×2 (08:47→17:48)
[2021-10-02] MEDS: pantoprazole DR 40 mg Tablet PO ×2 (08:47→17:48)
[2021-10-02] MEDS: insulin lispro 100 unit/1 mL SUBCUT ×4 (08:47→21:10)
[2021-10-02] MEDS: heparin drip 25,000 UNIT/500 ML PREMIX 25.12 UNIT IV (08:48)
[2021-10-02 09:57] LABS: Hemoglobin 13.5 g/dL (11.7-16.6); Lymphocytes # 0.2 10^3/uL (0.8-4.8); Lymphocytes % 4.8 %; Mean Corpuscular HGB Conc 31.4 g/dL (30.0-36.0); Mean Corpuscular Hemoglobin 28.4 pg (28.0-34.0); Mean Corpuscular Volume 90.5 fl (80-94); Mean Platelet Volume 10.7 fL (7.4-10.4); Monocytes # 0.1 10^3/uL (0.2-0.9); Neutrophils # 3.18 10^3/uL (1.8-7.7); Neutrophils % 90.3 %; Nucleated Red Blood Cells % 0 %; Platelet Count 289 10^3/cmm (130-400); Red Blood Count 4.75 10^6/uL (4.1-5.3); Red Cell Distribution Width 17.2 % (12.1-15.1); White Blood Count 3.5 10^3/uL (4.0-10.0)
[2021-10-02 10:30] LABS: Alanine Aminotransferase 29 U/L (0-41); Albumin Level 2.9 g/dL (3.5-5.2); Alkaline Phosphatase 67 IU/L (40-130); Anion Gap 18.9 (5-19); Aspartate Amino Transferase 10 U/L (0-40); Blood Urea Nitrogen 42 mg/dL (8-23); Calcium 8.1 mg/dL (8.5-10.5); Carbon Dioxide 27 mmol/L (22-29); Chloride 92 mmol/L (98-107); Creatinine Clr Calc Pharmacy 64.7399; Globulin 3.7 g/dL (1.3-4.6); Glomerular Filtration Rate 61.1 mL/min (90-130); Glucose 365 mg/dL (65-115); Osmolality Calculated 303 mOsm/kg (285-295); Potassium 3.9 mmol/L (3.5-5.1); Sodium 134 mmol/L (136-145); Total Bilirubin 0.2 mg/dL (0.15-1.2); Total Protein 6.6 g/dL (6.6-8.7)
[2021-10-02 10:52] LABS: Partial Thromboplastin Time 45.5 SECONDS (23.9-36.7)
[2021-10-02 11:02] LABS: Procalcitonin 0.09 ng/mL (0-0.5); Thyroid Stimulating Hormone 0.05 uIU/mL (0.27-4.20)
[2021-10-02 11:42] LABS: Glucose Point of Care 281 mg/dL (70-110)
[2021-10-02] MEDS: enoxaparin 40 mg/0.4 mL Syringe SUBCUT (11:58)
[2021-10-02 16:22] LABS: Quest SARS-CoV-2 RNA DETECTED (NOT DETECTED)
[2021-10-02 16:59] LABS: Glucose Point of Care 236 mg/dL (70-110)
--- NOTE | 2021-10-02 17:08 | P.PN_ITS ---
Subjective Subjective: Interval history: Patient was seen and examined this morning, continues to complain of worsening shortness of breath fatigue, currently requiring 5 L supplemental oxygen. His home oxygen requirement is 3 Ls. His other vitals and labs have been reviewed. Medications: Reviewed: Yes Vitals/I&O/Wt Last Vital Signs Temp 98.2 F 10/02/21 15:32 Pulse 62 10/02/21 15:32 Resp 18 10/02/21 15:32 BP 129/84 10/02/21 15:32 Pulse Ox 93 10/02/21 15:32 10/02/21 10/02/21 10/02/21 06:59 14:59 22:59 Intake Total 1700 / 2090 837.405 / 837.405 50 / 887.405 Output Total 1650 / 1925 Balance 50 / 165 837.405 / 837.405 50 / 887.405 Weight last 48 hrs Weight 89.358 kg Weight 89.721 kg Weight 85.91 kg Weight 90.718 kg Physical Exam Const: COMMON NORMALS: patient oriented x3 HENMT: COMMON NORMALS: normocephalic and atraumatic HEAD & SCALP: normocephalic and atraumatic Resp: OTHER: B/L Diminished Air entry Cardio: COMMON NORMALS: regular rate, regular rhythm, S1 normal heart sound present, S2 normal heart sound present, No gallops present (Cardio), No murmurs present (Cardio), No rub (Cardio) and Peripheral pulses 2+ throughout RATE: regular rate RHYTHM: regular rhythm HEART SOUNDS: S1 normal heart sound pr esent and S2 normal heart sound present PERIPHERAL PULSES: Peripheral pulses 2+ throughout GI: COMMON NORMALS: Normal to inspection, nondistended, normoactive bowel sounds present, Soft to palpation, non-tender, No hepatosplenomegaly present and no masses AUSCULTATION: Yes normoactive bowel sounds PALPATION: Yes Soft to palpation and Yes No hepatosplenomegaly present RECTAL EXAM: Yes deferred Extremity: COMMON NORMALS: no clubbing, cyanosis or edema and no pedal edema Neuro: COMMON NORMALS: patient oriented x3 Data : 10/02/21 09:30 10/02/21 09:30 Micro: Microbiology 10/01/21 16:06 Gram Stain - Final Sputum - Expectorated Sputum Sputum Culture - Preliminary 10/01/21 16:45 Blood Culture - Preliminary Blood SPECIMEN COLLECTED 10/01/21 16:45 Blood Culture - Preliminary Blood SPECIMEN COLLECTED A&P Assessment and plan (1) Acute on chronic respiratory failure with hypoxemia: Status: Acute (2) COVID-19: Status: Acute (3) Acute kidney injury: Status: Acute (4) D-dimer, elevated: Status: Acute (5) COPD (chronic obstructive pulmonary disease): Status: Acute (6) Hyperthyroidism: Status: Acute Additional A&P Information Acute on chronic hypoxemic/hypercapnic respiratory failure with possible superimposed pneumonia / COPD exacerbation / COVID-19 infection ( see below) - ABG PH of 7.37, PCO2 of 66.3, PO2 of 44.2 and a HCO3 of 37.8 on 6L - Supplemental 02 as needed - on 4L at baseline - currently 6L - Respiratory consult for BIPAP - Duoneb q6hr scheduled - Pulmicort 0.5 mg Inh BID - Continue Decadron 6 mg IV daily -Continue remdesivir for 5 days - Empirically started on zosyn 3.375g IV q6hr - S/p Levaquin 750 mg IV x 1 in ER - Sputum culture if able to obtain - No hx of MRSA - holding vancomycin - Wean Bipap as tolerated - Consider pulmonary consult COVID 19 Infection - Dx on 09/27 - Decadron 6 mg IV daily - Consider Remdesivir +/- Actemra - CRP 210 - Pro-calcitonin in am - Repeat PCR was sent in ER D-dimer Positive - 1.61 - High PPV given covid-19, worsening respiratory failure - Started on Heparin drip per protocol - Monitor hemoglobin given hx of GI bleed - CTA chest once renal function improves - Can consider V/Q scan if available Acute Renal failure - Creatinine increased to 1.7 - Holding Diuretic for now - Renal dosing of meds - Repeat BMP in am - Monitor u/o Severe Obstructive Sleep Apnea - Non-compliant with Bipap at home - Reordered Chronic diastolic HF - Grade 2 - Holding diuretics due to KEI - Recent ECHO in 07/2021 - pEF - Daily weight - Will likely need diuresis Diabetes Mellitus - Sliding scale insulin - Diabetic diet - QACHS glucose checks Hx of GI bleed - Protonix - Prior EGD- gastritis - Capsule endoscopy at [facility] - no records available - Monitor h/h - as pt was started on heparin drip DVT ppx - Heparin drip - SCD Additional Medical Problems - Paroxysmal Atrial Fibrillation - Moderate Aortic Stenosis - Hypertension - Hyperlipidemia - Hyperthyroidism * Verify Remainder of home meds in AM Attestations Medical Necessity Statement*: Patient needs to be in hospital for management of pneumonia. Coding Level of Care Code Acute Polymerization Oven Operator for g Fwd Exam Detailed Diagnoses Acute on chronic respiratory failure with hypoxemia J96.21 COVID-19 U07.1 Acute kidney injury N17.9 D-dimer, elevated R79.89 COPD (chronic obstructive pulmonary disease) J44.9 Hyperthyroidism E05.90
[2021-10-02] MEDS: guaiFENesin-dextromethorphan UDC 10 mL PO ×2 (17:48→21:10)
[2021-10-02] MEDS: remdesivir 200 MG in sodium chloride 0.9% (100 ml) 100 ML 100 MG IV (17:49)
[2021-10-02 20:19] LABS: Glucose Point of Care 242 mg/dL (70-110)
[2021-10-02] MEDS: atorvastatin 40 mg Tablet 20 MG PO (21:09)
[2021-10-02] MEDS: trazodone 50 mg Tablet 100 MG PO (21:10)
[2021-10-02] MEDS: dexamethasone 10 mg/mL INJ 6 MG IVP (23:31)
[2021-10-03] VITALS (11 sets, daily range): BP systolic 114–148; BP diastolic 72–83; PULSE 52–78; RESP 12–22; TEMP 36.6–36.8; O2SAT 89–95
[2021-10-03] MEDS: guaiFENesin-dextromethorphan UDC 10 mL PO ×6 (01:47→20:44)
[2021-10-03] MEDS: ipratropium-albuterol 3 mL Neb INHALATION ×4 (02:41→20:52)
[2021-10-03] MEDS: piperacillin-tazobactam 3.375 GM in sodium chloride 0.9% (plus) 50 ML IV ×3 (05:22→20:45)
[2021-10-03] MEDS: methIMAzole 5 MG Tablet 2.5 MG PO (05:23)
[2021-10-03] MEDS: aspirin 81 mg EC Tablet PO (05:24)
[2021-10-03 06:00] LABS: Basophils % 0.2 %; Hematocrit 40.9 % (42.0-52.0); Hemoglobin 12.8 g/dL (11.7-16.6); Lymphocytes # 0.2 10^3/uL (0.8-4.8); Lymphocytes % 3.4 %; Mean Corpuscular HGB Conc 31.3 g/dL (30.0-36.0); Mean Corpuscular Hemoglobin 28.6 pg (28.0-34.0); Mean Corpuscular Volume 91.5 fl (80-94); Mean Platelet Volume 11.2 fL (7.4-10.4); Monocytes # 0.3 10^3/uL (0.2-0.9); Monocytes % 4.4 %; Neutrophils # 5.54 10^3/uL (1.8-7.7); Nucleated Red Blood Cells % 0 %; Platelet Count 293 10^3/cmm (130-400); Red Blood Count 4.47 10^6/uL (4.1-5.3); Red Cell Distribution Width 17.3 % (12.1-15.1); White Blood Count 6.1 10^3/uL (4.0-10.0)
[2021-10-03 06:22] LABS: Alanine Aminotransferase 34 U/L (0-41); Albumin Level 2.4 g/dL (3.5-5.2); Alkaline Phosphatase 62 IU/L (40-130); Blood Urea Nitrogen 34 mg/dL (8-23); Calcium 8.1 mg/dL (8.5-10.5); Carbon Dioxide 32 mmol/L (22-29); Chloride 94 mmol/L (98-107); Globulin 3.6 g/dL (1.3-4.6); Glomerular Filtration Rate 67.6 mL/min (90-130); Glucose 190 mg/dL (65-115); Osmolality Calculated 291 mOsm/kg (285-295); Sodium 134 mmol/L (136-145); Total Bilirubin 0.2 mg/dL (0.15-1.2)
[2021-10-03 06:24] LABS: Anion Gap 12.8 (5-19); Aspartate Amino Transferase 25 U/L (0-40); Potassium 4.8 mmol/L (3.5-5.1)
[2021-10-03 06:47] LABS: Glucose Point of Care 286 mg/dL (70-110)
[2021-10-03] MEDS: benzonatate 100 mg Capsule 200 MG PO (09:33)
[2021-10-03] MEDS: metoprolol tartrate 50 mg Tablet PO ×2 (09:33→18:18)
[2021-10-03] MEDS: pantoprazole DR 40 mg Tablet PO ×2 (09:33→18:18)
[2021-10-03] MEDS: acetaminophen 325 mg Tablet 650 MG PO (09:34)
[2021-10-03] MEDS: amiodarone 200 mg Tablet PO (09:34)
[2021-10-03] MEDS: insulin lispro 100 unit/1 mL SUBCUT ×4 (09:34→20:47)
[2021-10-03] MEDS: budesonide 0.5 mg/2 mL Neb INHALATION ×2 (09:43→20:52)
[2021-10-03 11:44] LABS: Glucose Point of Care 442 mg/dL (70-110)
[2021-10-03 11:44] LABS: Glucose Point of Care 345 mg/dL (70-110)
[2021-10-03] MEDS: enoxaparin 40 mg/0.4 mL Syringe SUBCUT (12:08)
--- NOTE | 2021-10-03 13:59 | P.PN_ITS ---
Subjective Subjective: Interval history: Patient was seen and examined this morning, continues to complain of worsening shortness of breath fatigue, continues to complain of nagging cough. Medications: Reviewed: Yes Vitals/I&O/Wt Last Vital Signs Temp 97.9 F 10/03/21 11:20 Pulse 65 10/03/21 11:20 Resp 18 10/03/21 11:20 BP 114/72 10/03/21 11:20 Pulse Ox 93 10/03/21 11:20 10/02/21 10/03/21 10/03/21 22:59 06:59 14:59 Intake Total 1110 / 1947.405 290 / 2237.405 530 / 530 Output Total 700 / 700 1100 / 1800 Balance 410 / 1247.405 -810 / 437.405 530 / 530 Weight last 48 hrs Weight 91.626 kg Weight 89.358 kg Weight 89.721 kg Weight 85.91 kg Weight 90.718 kg Physical Exam Const: COMMON NORMALS: patient oriented x3 HENMT: COMMON NORMALS: normocephalic and atraumatic HEAD & SCALP: normocephalic and atraumatic Resp: OTHER: B/L Diminished Air entry Cardio: COMMON NORMALS: regular rate, regular rhythm, S1 normal heart sound present, S2 normal heart sound present, No gallops present (Cardio), No murmurs present (Cardio), No rub (Cardio) and Peripheral pulses 2+ throughout RATE: regular rate RHYTHM: regular rhythm HEART SOUNDS: S1 normal heart sound present and S2 normal heart sound present PERIPHERAL PULSES: Peripheral pulses 2+ throughout GI: COMMON NORMALS: Normal to inspection, nondistended, normoactive bowel sounds present, Soft to palpation, non-tender, No hepatosplenomegaly present and no masses AUSCULTATION: Yes normoactive bowel sounds PALPATION: Yes Soft to palpation and Yes No hepatosplenomegaly present RECTAL EXAM: Yes deferred Extremity: COMMON NORMALS: no clubbing, cyanosis or edema and no pedal edema Neuro: COMMON NORMALS: patient oriented x3 Data : 10/03/21 05:29 10/03/21 05:29 Micro: Microbiology 10/01/21 16:06 Gram Stain - Final Sputum - Expectorated Sputum Sputum Culture - Final 10/01/21 16:45 Blood Culture - Preliminary Blood NEGATIVE TO DATE 10/01/21 16:45 Blood Culture - Preliminary Blood NEGATIVE TO DATE A&P Assessment and plan (1) Acute on chronic respiratory failure with hypoxemia: Status: Acute (2) COVID-19: Status: Acute (3) Acute kidney injury: Status: Acute (4) D-dimer, elevated: Status: Acute (5) COPD (chronic obstructive pulmonary disease): Status: Acute (6) Hyperthyroidism: Status: Acute Additional A&P Information Acute on chronic hypoxemic/hypercapnic respiratory failure with possible superimposed pneumonia / COPD exacerbation / COVID-19 infection - ABG PH of 7.37, PCO2 of 66.3, PO2 of 44.2 and a HCO3 of 37.8 on 6L - Supplemental 02 as needed - on 4L at baseline - currently 6L -Continue to monitor inflammatory markers - Duoneb q6hr scheduled - Pulmicort 0.5 mg Inh BID - Continue Decadron 6 mg IV daily -Continue remdesivir for 5 days - Empirically started on zosyn 3.375g IV q6hr -Initially on Heparin drip for elevated D-dimer.Has been stopped -Has hx of severe GI bleed - S/p Levaquin 750 mg IV x 1 in ER - Sputum culture - No hx of MRSA - holding vancomycin - Wean Bipap as tolerated - Consider pulmonary consult COVID 19 Infection - Dx on 09/27 Acute Renal failure - Creatinine increased to 1.7 -Initially diuretic on hold - Renal dosing of meds - Repeat BMP in am - Monitor u/o Severe Obstructive Sleep Apnea - Non-compliant with Bipap at home - Reordered Chronic diastolic HF - Grade 2 - Initially diuretics on hold due to KEI -Resume lasix 40 mg I.V Daily - Recent ECHO in 07/2021 - pEF - Daily weight Diabetes Mellitus - Sliding scale insulin - Diabetic diet - QACHS glucose checks Hx of GI bleed - Protonix - Prior EGD- gastritis - Capsule endoscopy at [facility] - no records available - Monitor h/h - as pt was started on heparin drip DVT ppx - Heparin drip - SCD Additional Medical Problems - Paroxysmal Atrial Fibrillation - Moderate Aortic Stenosis - Hypertension - Hyperlipidemia - Hyperthyroidism * Verify Remainder of home meds in AM Attestations Medical Necessity Statement*: Patient is to be in the hospital for management of Covid pneumonia. Coding Level of Care Code Acute Prep Person for Chg Fwd Exam Detailed Diagnoses Acute on chronic respiratory failure with hypoxemia J96.21 COVID-19 U07.1 Acute kidney injury N17.9 D-dimer, elevated R79.89 COPD (chronic obstructive pulmonary disease) J44.9 Hyperthyroidism E05.90
[2021-10-03] MEDS: FUROsemide 10 mg/mL SDV 4mL 40 MG IVP (15:49)
[2021-10-03 16:59] LABS: Glucose Point of Care 325 mg/dL (70-110)
[2021-10-03] MEDS: remdesivir 100 MG in sodium chloride 0.9% (100 ml) 100 ML IV (18:18)
[2021-10-03] MEDS: atorvastatin 40 mg Tablet 20 MG PO (20:44)
[2021-10-03] MEDS: trazodone 50 mg Tablet 100 MG PO (20:44)
[2021-10-03 20:52] LABS: Glucose Point of Care 180 mg/dL (70-110)
[2021-10-03] MEDS: dexamethasone 10 mg/mL INJ 6 MG IVP (23:03)
[2021-10-04] VITALS (16 sets, daily range): BP systolic 131–160; BP diastolic 67–87; PULSE 50–76; RESP 11–20; TEMP 36.6–36.9; O2SAT 87–96
[2021-10-04] MEDS: guaiFENesin-dextromethorphan UDC 10 mL PO ×6 (01:32→21:27)
[2021-10-04] MEDS: ipratropium-albuterol 3 mL Neb INHALATION ×4 (02:29→20:10)
[2021-10-04] MEDS: piperacillin-tazobactam 3.375 GM in sodium chloride 0.9% (plus) 50 ML IV ×3 (05:09→21:29)
[2021-10-04] MEDS: methIMAzole 5 MG Tablet 2.5 MG PO (05:10)
[2021-10-04] MEDS: aspirin 81 mg EC Tablet PO (05:10)
[2021-10-04 06:03] LABS: Basophils % 0.2 %; Hematocrit 41.1 % (42.0-52.0); Hemoglobin 13.1 g/dL (11.7-16.6); Lymphocytes # 0.2 10^3/uL (0.8-4.8); Lymphocytes % 3.2 %; Mean Corpuscular HGB Conc 31.9 g/dL (30.0-36.0); Mean Corpuscular Hemoglobin 28.5 pg (28.0-34.0); Mean Corpuscular Volume 89.3 fl (80-94); Mean Platelet Volume 10.4 fL (7.4-10.4); Monocytes # 0.2 10^3/uL (0.2-0.9); Monocytes % 4.1 %; Neutrophils # 4.94 10^3/uL (1.8-7.7); Neutrophils % 91.8 %; Nucleated Red Blood Cells % 0 %; Platelet Count 337 10^3/cmm (130-400); Red Cell Distribution Width 16.9 % (12.1-15.1); White Blood Count 5.4 10^3/uL (4.0-10.0)
[2021-10-04 06:33] LABS: D Dimer 1.34 ug/mIFEU (0-0.59)
[2021-10-04 07:03] LABS: Glucose Point of Care 280 mg/dL (70-110)
[2021-10-04 07:04] LABS: Alanine Aminotransferase 33 U/L (0-41); Albumin Level 2.9 g/dL (3.5-5.2); Alkaline Phosphatase 62 IU/L (40-130); Anion Gap 15.3 (5-19); Aspartate Amino Transferase 16 U/L (0-40); Blood Urea Nitrogen 32 mg/dL (8-23); C Reactive Protein 40.2 mg/L (0.0-4.9); Calcium 7.9 mg/dL (8.5-10.5); Carbon Dioxide 33 mmol/L (22-29); Chloride 91 mmol/L (98-107); Ferritin 213 ng/mL (30-400); Globulin 2.6 g/dL (1.3-4.6); Glomerular Filtration Rate 67.6 mL/min (90-130); Glucose 266 mg/dL (65-115); Lactate Dehydrogenase 222 U/L (135-225); Osmolality Calculated 296 mOsm/kg (285-295); Potassium 4.3 mmol/L (3.5-5.1); Sodium 135 mmol/L (136-145); Total Bilirubin 0.2 mg/dL (0.15-1.2); Total Protein 5.5 g/dL (6.6-8.7)
[2021-10-04] MEDS: budesonide 0.5 mg/2 mL Neb INHALATION ×2 (08:19→20:10)
[2021-10-04] MEDS: metoprolol tartrate 50 mg Tablet PO ×2 (08:26→17:24)
[2021-10-04] MEDS: amiodarone 200 mg Tablet PO (08:27)
[2021-10-04] MEDS: benzonatate 100 mg Capsule PO (08:27)
[2021-10-04] MEDS: insulin lispro 100 unit/1 mL SUBCUT ×4 (08:27→21:30)
[2021-10-04] MEDS: atorvastatin 40 mg Tablet 80 MG PO (08:27)
[2021-10-04] MEDS: pantoprazole DR 40 mg Tablet PO ×2 (08:27→17:24)
--- NOTE | 2021-10-04 10:26 | CT_ITS ---
WS: [id number] CTA OF THE CHEST WITH PULMONARY EMBOLISM PROTOCOL TECHNIQUE: High-resolution contrast enhanced CTA of the chest with coronal and sagittal reformatted i nazia with pulmonary embolism protocol. MIP images are also reviewed. CLINICAL INFORMATION: covid 19 COMPARISON: August 02, 2021 DLP: 546.[address] scans at [facility] use at least one of these dose optimization techniques: automated e xposure control; mA and/or kV adjustment per patient size (includes targeted exams where dose is matc hed to clinical indication); or iterative reconstruction. FINDINGS: Moderate chronic emphysematous changes. Mild hazy groundglass mainly subpleural infiltrates compatibl e with COVID 19 Pneumonia. This appears progressed compared to August 02, 2021. Trace bilateral fl ow pleural fluid with compressive atelectasis in the lung bases. Subsegmental atelectasis right lower lobe. Proximal main pulmonary arteries are normal. Normal segmental and subsegmental pulmonary arteries. No evidence of pulmonary embolism. Enlarged proximal main pulmonary arteries can be seen with pulmonary arterial hypertension unchanged from previous. Left adrenal nodule likely adenoma unchanged. Normal GE junction. Thoracic spine is un changed. Enlarged anterior mediastinal lymph node or substernal thyroid nodule measuring 1.7 cm uncha nged from previous. CT/CT angio chest PE protcl [id number] IMPRESSION: 1. Enlarged central pulmonary arteries can be seen with pulmonary arterial hyp ertension. 2. Proximal main pulmonary arteries are normal. No evidence of pulmonary embol us. 3. Mild subpleural hazy ground glass infiltrates progressed compared to previo us compatible with COVID 19 Pneumonia. 4. Trace pleural fluid with bibasilar atelectasis right greater than left.
[2021-10-04] MEDS: iohexol 350 mg/mL 100 mL Btl IV (11:00)
[2021-10-04 11:24] LABS: Glucose Point of Care 433 mg/dL (70-110)
--- NOTE | 2021-10-04 12:15 | PC.SOCIAL ---
IMM Update Pg.2 of IMM updated with patient, who verbalized understanding. Copy provided.
[2021-10-04] MEDS: enoxaparin 40 mg/0.4 mL Syringe SUBCUT (12:37)
[2021-10-04] MEDS: remdesivir 100 MG in sodium chloride 0.9% (100 ml) 100 ML IV (17:25)
[2021-10-04 18:14] LABS: Glucose Point of Care 149 mg/dL (70-110)
--- NOTE | 2021-10-04 19:03 | PM.PN ---
Subjective Subjective: Interval history: Patient was seen this morning, no chest pain, no palpitations, currently on 6 L, has no complaints this morning except just being tired Medications: Reviewed: Yes Vitals/I&O/Wt Last Vital Signs Temp 97.8 F 10/04/21 16:00 Pulse 60 10/04/21 16:00 Resp 18 10/04/21 16:00 BP 143/87 10/04/21 16:00 Pulse Ox 95 10/04/21 16:00 10/04/21 10/04/21 10/04/21 06:59 14:59 22:59 Intake Total 290 / 2690 770 / 770 450 / 1220 Output Total 1400 / 4200 1350 / 1350 800 / 2150 Balance -1110 / -1510 -580 / -580 -350 / -930 Weight last 48 hrs Weight 91.671 kg Weight 91.626 kg Physical Exam Const: COMMON NORMALS: no acute distress and patient oriented x3 Resp: COMMON NORMALS: normal respiratory effort, No retractions, No use of accessory muscles and clear to auscultation bilaterally AUSCULTATION: clear to auscultation bilaterally Cardio: COMMON NORMALS: regular rate, regular rhythm, S1 normal heart sound present and S2 normal heart sound present RATE: regular rate RHYTHM: regular rhythm HEART SOUNDS: S1 normal heart sound present and S2 normal heart sound present GI: COMMON NORMALS: Normal to inspection, nondistended, normoactive bowel sounds present and Soft to palpation PALPATION: Yes Soft to palpation Extremity: COMMON NORMALS: no pedal edema Neuro: COMMON NORMALS: patient oriented x3 Psych: COMMON NORMALS: mental status grossly normal Data : 10/04/21 05:20 10/04/21 05:20 A&P Assessment and plan (1) Acute on chronic respiratory failure with hypoxemia: Status: Acute (2) COVID-19: Status: Acute (3) Acute kidney injury: Status: Acute (4) D-dimer, elevated: Status: Acute (5) COPD (chronic obstructive pulmonary disease): Status: Acute (6) Hyperthyroidism: Status: Acute Additional A&P Information Acute on chronic hypoxemic/hypercapnic respiratory failure with possible superimposed pneumonia / COPD exacerbation / COVID-19 infection - ABG PH of 7.37, PCO2 of 66.3, PO2 of 44.2 and a HCO3 of 37.8 on 6L - Supplemental 02 as needed - on 4L at baseline - currently 6L -Continue to monitor inflammatory markers - Duoneb q6hr scheduled - Pulmicort 0.5 mg Inh BID - Continue Decadron 6 mg IV daily -Continue remdesivir for 5 days - Empirically started on zosyn 3.375g IV q6hr -Hold off on baricitinib -Will order CT angiogram of the chest -Initially on Heparin drip for elevated D-dimer.Has been stopped -Has hx of severe GI bleed - S/p Levaquin 750 mg IV x 1 in ER - Sputum culture - No hx of MRSA - holding vancomycin - Wean Bipap as tolerated - Consider pulmonary consult COVID 19 Infection - Dx on 09/27 Acute Renal failure - Creatinine increased to now 1.1 -Continue to hold diuretic - Renal dosing of meds - Repeat BMP in am - Monitor u/o Severe Obstructive Sleep Apnea - Non-compliant with Bipap at home - Reordered Chronic diastolic HF - Grade 2 - Initially diuretics on hold due to KEI -Hold Lasix - Recent ECHO in 07/2021 -ejection fraction 65% - Daily weight Diabetes Mellitus - Sliding scale insulin -Start Levemir 10 units at bedtime - Diabetic diet - QACHS glucose checks Hx of GI bleed - Protonix - Prior EGD- gastritis - Capsule endoscopy at [facility] - no records available - Monitor h/h - as pt was started on heparin drip DVT ppx -Lovenox - SCD Additional Medical Problems - Paroxysmal Atrial Fibrillation - Moderate Aortic Stenosis - Hypertension - Hyperlipidemia - Hyperthyroidism, on Tapazole Attestations Medical Necessity Statement*: Patient requires hospitalization for acute respiratory failure sec to COVID-19 Coding Level of Care Code Acute 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
--- NOTE | 2021-10-04 19:18 | PC.NURSE ---
Report to Micki URBINA at this time.
[2021-10-04] MEDS: trazodone 50 mg Tablet 100 MG PO (21:27)
[2021-10-04] MEDS: atorvastatin 40 mg Tablet 20 MG PO (21:28)
[2021-10-04 21:34] LABS: Glucose Point of Care 218 mg/dL (70-110)
[2021-10-04] MEDS: dexamethasone 10 mg/mL INJ 6 MG IVP (22:59)
[2021-10-05] VITALS (15 sets, daily range): BP systolic 121–177; BP diastolic 66–90; PULSE 51–66; RESP 16–18; TEMP 36.4–36.8; O2SAT 90–94
[2021-10-05] MEDS: guaiFENesin-dextromethorphan UDC 10 mL PO ×6 (01:29→21:00)
[2021-10-05 03:35] LABS: Basophils % 0.1 %; Hematocrit 40.2 % (42.0-52.0); Hemoglobin 12.7 g/dL (11.7-16.6); Lymphocytes # 0.2 10^3/uL (0.8-4.8); Lymphocytes % 3.4 %; Mean Corpuscular HGB Conc 31.6 g/dL (30.0-36.0); Mean Corpuscular Hemoglobin 28.3 pg (28.0-34.0); Mean Corpuscular Volume 89.5 fl (80-94); Mean Platelet Volume 10.5 fL (7.4-10.4); Monocytes # 0.3 10^3/uL (0.2-0.9); Neutrophils # 6.14 10^3/uL (1.8-7.7); Neutrophils % 90.3 %; Nucleated Red Blood Cells % 0 %; Platelet Count 353 10^3/cmm (130-400); Red Blood Count 4.49 10^6/uL (4.1-5.3); Red Cell Distribution Width 17.1 % (12.1-15.1); White Blood Count 6.8 10^3/uL (4.0-10.0)
[2021-10-05] MEDS: ipratropium-albuterol 3 mL Neb INHALATION ×4 (03:47→21:26)
[2021-10-05 04:15] LABS: NT Pro B Type Natriuretic Pept 590 pg/mL (0-125); Procalcitonin 0.07 ng/mL (0-0.5)
[2021-10-05 04:27] LABS: Alanine Aminotransferase 33 U/L (0-41); Albumin Level 2.8 g/dL (3.5-5.2); Alkaline Phosphatase 57 IU/L (40-130); Anion Gap 8.9 (5-19); Aspartate Amino Transferase 17 U/L (0-40); Blood Urea Nitrogen 33 mg/dL (8-23); C Reactive Protein 20.9 mg/L (0.0-4.9); Calcium 8.3 mg/dL (8.5-10.5); Carbon Dioxide 40 mmol/L (22-29); Chloride 91 mmol/L (98-107); Ferritin 175 ng/mL (30-400); Globulin 2.3 g/dL (1.3-4.6); Glomerular Filtration Rate 61.1 mL/min (90-130); Glucose 198 mg/dL (65-115); Lactate Dehydrogenase 145 U/L (135-225); Osmolality Calculated 293 mOsm/kg (285-295); Phosphorus 2.1 mg/dL (2.5-4.5); Potassium 4.9 mmol/L (3.5-5.1); Sodium 135 mmol/L (136-145); Total Bilirubin 0.2 mg/dL (0.15-1.2); Total Protein 5.1 g/dL (6.6-8.7)
--- NOTE | 2021-10-05 05:00 | USCV_ITS ---
Nagi Cuellar Age: 65 Gender: M : 1955 Exam Date: 10/05/2021 08:58 Ordering Phys: Unruly Bass MD Technologist: AMBER [place] [facility] [place]: DVT HISTORY: Lower extremity swelling. PROCEDURES: Venous duplex imaging was performed in bilateral lower extremities. The following venous structures were evaluated: common femoral vein, profunda vein, proximal portion of the greater saphenous vein, superficial femoral vein, and the popliteal vein. In addition, the posterior tibial and peroneal trunk were evaluated. FINDINGS: Normal 2-D Doppler and augmentation and compressibility throughout the lower extremity venous structures. Additional imaging through the proximal calf veins also reveals no thrombus. Limited evaluation of the greater saphenous vein is patent with no thrombus. There appears to be a fluid collection on Left medial knee. CONCLUSIONS No evidence of right lower extremity DVT. No evidence of left lower extremity DVT. Small left popliteal cyst 2.0 x 1.9cm Abdiel Gar MD (Electronically Signed) Final Date: 05 October 2021 16:34 S
[2021-10-05 05:38] LABS: D Dimer 0.91 ug/mIFEU (0-0.59)
[2021-10-05] MEDS: aspirin 81 mg EC Tablet PO (06:13)
[2021-10-05] MEDS: methIMAzole 5 MG Tablet 2.5 MG PO (06:13)
[2021-10-05] MEDS: piperacillin-tazobactam 3.375 GM in sodium chloride 0.9% (plus) 50 ML IV ×3 (06:13→21:00)
[2021-10-05 06:30] LABS: Glucose Point of Care 271 mg/dL (70-110)
[2021-10-05] MEDS: budesonide 0.5 mg/2 mL Neb INHALATION ×2 (08:10→21:26)
[2021-10-05] MEDS: metoprolol tartrate 50 mg Tablet PO ×2 (08:41→18:25)
[2021-10-05] MEDS: atorvastatin 40 mg Tablet 80 MG PO (08:41)
[2021-10-05] MEDS: pantoprazole DR 40 mg Tablet PO ×2 (08:42→18:25)
[2021-10-05] MEDS: benzonatate 100 mg Capsule PO (08:42)
[2021-10-05] MEDS: insulin lispro 100 unit/1 mL SUBCUT ×4 (08:42→21:52)
[2021-10-05] MEDS: amiodarone 200 mg Tablet PO (08:42)
[2021-10-05] MEDS: FUROsemide 10 mg/mL SDV 4mL 40 MG IVP (08:46)
[2021-10-05 11:56] LABS: Glucose Point of Care 450 mg/dL (70-110)
--- NOTE | 2021-10-05 12:35 | PM.PN ---
Subjective Subjective: Interval history: Patient was seen this morning, he continues to complain of shortness of breath with exertion, he is worried about going home too soon, he is worried about his shortness of breath, he is worried about giving his girlfriend Jj again as she is recently recovering from an infection Vitals/I&O/Wt Last Vital Signs Temp 97.8 F 10/05/21 12:00 Pulse 56 L 10/05/21 12:00 Resp 18 10/05/21 12:00 BP 157/90 10/05/21 12:00 Pulse Ox 90 10/05/21 12:00 10/04/21 10/05/21 10/05/21 22:59 06:59 14:59 Intake Total 550 / 1320 50 / 1370 280 / 280 Output Total 1150 / 2500 750 / 3250 1150 / 1150 Balance -600 / -1180 -700 / -1880 -870 / -870 Weight last 48 hrs Weight 92.261 kg Weight 91.671 kg Physical Exam Const: COMMON NORMALS: no acute distress and patient oriented x3 Resp: COMMON NORMALS: normal respiratory effort, No retractions, No use of accessory muscles and clear to auscultation bilaterally AUSCULTATION: clear to auscultation bilaterally Cardio: COMMON NORMALS: regular rate, regular rhythm, S1 normal heart sound present and S2 normal heart sound present RATE: regular rate RHYTHM: regular rhythm HEART SOUNDS: S1 normal heart sound present and S2 normal heart sound present GI: COMMON NORMALS: Normal to inspection, nondistended, normoactive bowel sounds present, Soft to palpation and non-tender PALPATION: Yes Soft to palpation Extremity: COMMON NORMALS: no pedal edema Neuro: COMMON NORMALS: patient oriented x3 Psych: COMMON NORMALS: mental status grossly normal Data : 10/05/21 02:21 10/05/21 02:21 A&P Assessment and plan (1) Acute on chronic respiratory failure with hypoxemia: Status: Acute (2) COVID-19: Status: Acute (3) Acute kidney injury: Status: Acute (4) D-dimer, elevated: Status: Acute (5) COPD (chronic obstructive pulmonary disease): Status: Acute (6) Hyperthyroidism: Status: Acute Additional A&P Information Acute on chronic hypoxemic/hypercapnic respiratory failure with possible superimposed pneumonia / COPD exacerbation / COVID-19 infection - Supplemental 02 as needed - on 4L at baseline - currently 6L -Continue to monitor inflammatory markers - Duoneb q6hr scheduled - Pulmicort 0.5 mg Inh BID - Continue Decadron 6 mg IV daily -Continue remdesivir for 5 days - Empirically started on zosyn 3.375g IV q6hr -We will hold off on baricitinib -CT angiogram negative for pulmonary embolism -Initially on Heparin drip for elevated D-dimer.Has been stopped -Has hx of severe GI bleed - S/p Levaquin 750 mg IV x 1 in ER - Sputum culture - No hx of MRSA - holding vancomycin - Wean Bipap as tolerated COVID 19 Infection - Dx on 09/27 Acute Renal failure - Creatinine increased to now 1.1 -Continue to hold diuretic - Renal dosing of meds - Repeat BMP in am - Monitor u/o Severe Obstructive Sleep Apnea - Non-compliant with Bipap at home - Reordered Chronic diastolic HF - Grade 2 - Initially diuretics on hold due to KEI -Hold Lasix - Recent ECHO in 07/2021 -ejection fraction 65% - Daily weight Diabetes Mellitus - Sliding scale insulin -Start Levemir 10 units at bedtime - Diabetic diet - QACHS glucose checks Hx of GI bleed - Protonix - Prior EGD- gastritis - Capsule endoscopy at [facility] - no records available - Monitor h/h - as pt was started on heparin drip DVT ppx -Lovenox - SCD Additional Medical Problems - Paroxysmal Atrial Fibrillation - Moderate Aortic Stenosis - Hypertension - Hyperlipidemia - Hyperthyroidism, on Tapazole Attestations Medical Necessity Statement*: Patient requires hospitalization for COVID-19 pneumonia Coding Level of Care Code Acute 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
[2021-10-05] MEDS: enoxaparin 40 mg/0.4 mL Syringe SUBCUT (13:03)
[2021-10-05 18:07] LABS: Glucose Point of Care 383 mg/dL (70-110)
[2021-10-05] MEDS: remdesivir 100 MG in sodium chloride 0.9% (100 ml) 100 ML IV (18:49)
--- NOTE | 2021-10-05 19:26 | PC.NURSE ---
Report to Angella ALEMAN at this time.
[2021-10-05] MEDS: atorvastatin 40 mg Tablet 20 MG PO (21:00)
[2021-10-05] MEDS: trazodone 50 mg Tablet 100 MG PO (21:00)
[2021-10-05 21:29] LABS: Glucose Point of Care 185 mg/dL (70-110)
[2021-10-06] VITALS (14 sets, daily range): BP systolic 127–156; BP diastolic 70–79; PULSE 56–78; RESP 14–19; TEMP 36.6–37.2; O2SAT 89–95
[2021-10-06] MEDS: dexamethasone 10 mg/mL INJ 6 MG IVP ×2 (00:04→23:44)
[2021-10-06] MEDS: guaiFENesin-dextromethorphan UDC 10 mL PO ×6 (02:35→20:20)
[2021-10-06 02:49] LABS: Basophils % 0.1 %; Eosinophils % 0.3 %; Hematocrit 39.1 % (42.0-52.0); Hemoglobin 12.4 g/dL (11.7-16.6); Lymphocytes # 0.3 10^3/uL (0.8-4.8); Lymphocytes % 4.5 %; Mean Corpuscular HGB Conc 31.7 g/dL (30.0-36.0); Mean Corpuscular Volume 88.3 fl (80-94); Mean Platelet Volume 10.5 fL (7.4-10.4); Monocytes # 0.6 10^3/uL (0.2-0.9); Monocytes % 9.3 %; Neutrophils % 83.6 %; Nucleated Red Blood Cells % 0 %; Platelet Count 378 10^3/cmm (130-400); Red Blood Count 4.43 10^6/uL (4.1-5.3); Red Cell Distribution Width 16.7 % (12.1-15.1); White Blood Count 6.7 10^3/uL (4.0-10.0)
[2021-10-06 03:01] LABS: Alanine Aminotransferase 34 U/L (0-41); Albumin Level 2.7 g/dL (3.5-5.2); Alkaline Phosphatase 67 IU/L (40-130); Aspartate Amino Transferase 20 U/L (0-40); Blood Urea Nitrogen 35 mg/dL (8-23); C Reactive Protein 12.3 mg/L (0.0-4.9); Calcium 8.5 mg/dL (8.5-10.5); Chloride 92 mmol/L (98-107); D Dimer 0.77 ug/mIFEU (0-0.59); Ferritin 136 ng/mL (30-400); Globulin 2.7 g/dL (1.3-4.6); Glomerular Filtration Rate 67.6 mL/min (90-130); Glucose 199 mg/dL (65-115); Lactate Dehydrogenase 184 U/L (135-225); Magnesium 1.9 mg/dL (1.7-2.3); Osmolality Calculated 298 mOsm/kg (285-295); Phosphorus 2.2 mg/dL (2.5-4.5); Sodium 137 mmol/L (136-145); Total Bilirubin 0.2 mg/dL (0.15-1.2); Total Protein 5.4 g/dL (6.6-8.7)
[2021-10-06 03:12] LABS: Carbon Dioxide 41 mmol/L (22-29)
[2021-10-06 03:24] LABS: NT Pro B Type Natriuretic Pept 598 pg/mL (0-125); Procalcitonin 0.08 ng/mL (0-0.5)
[2021-10-06] MEDS: ipratropium-albuterol 3 mL Neb INHALATION ×4 (04:01→20:53)
[2021-10-06] MEDS: piperacillin-tazobactam 3.375 GM in sodium chloride 0.9% (plus) 50 ML IV ×3 (05:55→20:20)
[2021-10-06] MEDS: aspirin 81 mg EC Tablet PO (05:56)
[2021-10-06] MEDS: methIMAzole 5 MG Tablet 2.5 MG PO (06:02)
[2021-10-06 07:18] LABS: Glucose Point of Care 239 mg/dL (70-110)
[2021-10-06 07:18] LABS: Glucose Point of Care 252 mg/dL (70-110)
[2021-10-06] MEDS: metoprolol tartrate 50 mg Tablet PO ×2 (08:53→17:13)
[2021-10-06] MEDS: pantoprazole DR 40 mg Tablet PO ×2 (08:54→17:13)
[2021-10-06] MEDS: amiodarone 200 mg Tablet PO (08:54)
[2021-10-06] MEDS: insulin lispro 100 unit/1 mL SUBCUT ×4 (08:54→20:56)
[2021-10-06] MEDS: atorvastatin 40 mg Tablet 80 MG PO (08:54)
[2021-10-06] MEDS: saline nasal spray 44mL Btl 2 SPRAY NASAL (09:01)
[2021-10-06] MEDS: budesonide 0.5 mg/2 mL Neb INHALATION ×2 (09:46→20:53)
--- NOTE | 2021-10-06 10:53 | PC.SOCIAL ---
IMM Update pg 2 of IMM updated and reviewed w/ patient. Copy provided.
[2021-10-06] MEDS: enoxaparin 40 mg/0.4 mL Syringe SUBCUT (11:26)
[2021-10-06 11:32] LABS: Glucose Point of Care 402 mg/dL (70-110)
--- NOTE | 2021-10-06 16:36 | P.PN_ITS ---
Subjective Subjective: Interval history: Patient was seen this morning, he tells me that he just feels fatigued, tired, short of breath, he is not ready to go home, no fevers overnight, no chest pain, no palpitations Vitals/I&O/Wt Last Vital Signs Temp 98.0 F 10/06/21 11:23 Pulse 61 10/06/21 15:00 Resp 16 10/06/21 15:00 BP 154/78 10/06/21 11:23 Pulse Ox 94 10/06/21 15:00 10/06/21 10/06/21 10/06/21 06:59 14:59 22:59 Intake Total 450 / 1240 1010 / 1010 Output Total 600 / 2975 900 / 900 Balance -150 / -1735 110 / 110 Weight last 48 hrs Weight 92.079 kg Weight 92.261 kg Physical Exam Const: COMMON NORMALS: no acute distress and patient oriented x3 Resp: COMMON NORMALS: normal respiratory effort, No retractions, No use of accessory muscles and clear to auscultation bilaterally AUSCULTATION: clear to auscultation bilaterally Cardio: COMMON NORMALS: regular rate, regular rhythm, S1 normal heart sound present and S2 normal heart sound present RATE: regular rate RHYTHM: regular rhythm HEART SOUNDS: S1 normal heart sound present and S2 normal heart sound present GI: COMMON NORMALS: Normal to inspection, nondistended, normoactive bowel sounds present, Soft to palpation and non-tender PALPATION: Yes Soft to palpation Extremity: COMMON NORMALS: no pedal edema Neuro: COMMON NORMALS: patient oriented x3 Psych: COMMON NORMALS: mental status grossly normal Data : 10/06/21 01:56 10/06/21 01:56 A&P Assessment and plan (1) Acute on chronic respiratory failure with hypoxemia: Status: Acute (2) COVID-19: Status: Acute (3) Acute kidney injury: Status: Acute (4) D-dimer, elevated: Status: Acute (5) COPD (chronic obstructive pulmonary disease): Status: Acute (6) Hyperthyroidism: Status: Acute Additional A&P Information Acute on chronic hypoxemic/hypercapnic respiratory failure with possible superimposed pneumonia / COPD exacerbation / COVID-19 infection - Supplemental 02 as needed - on 4L at baseline - currently 6L -Continue to monitor inflammatory markers - Duoneb q6hr scheduled - Pulmicort 0.5 mg Inh BID - Continue Decadron 6 mg IV daily -Completed remdesivir -Continue zosyn 3.375g IV q6hr -We will hold off on baricitinib -CT angiogram negative for pulmonary embolism -Initially on Heparin drip for elevated D-dimer.Has been stopped -Has hx of severe GI bleed - S/p Levaquin 750 mg IV x 1 in ER - Sputum culture - No hx of MRSA - holding vancomycin COVID 19 Infection - Dx on 09/27 Acute Renal failure - Creatinine increased to now 1.1 -Continue to hold diuretic - Renal dosing of meds - Repeat BMP in am - Monitor u/o Severe Obstructive Sleep Apnea - Non-compliant with Bipap at home - Reordered Chronic diastolic HF - Grade 2 - Initially diuretics on hold due to KEI -Hold Lasix - Recent ECHO in 07/2021 -ejection fraction 65% - Daily weight Diabetes Mellitus - Sliding scale insulin -Start Levemir 10 units at bedtime - Diabetic diet - QACHS glucose checks Hx of GI bleed - Protonix - Prior EGD- gastritis - Capsule endoscopy at [facility] - no records available - Monitor h/h - as pt was started on heparin drip DVT ppx -Lovenox - SCD Additional Medical Problems - Paroxysmal Atrial Fibrillation - Moderate Aortic Stenosis - Hypertension - Hyperlipidemia - Hyperthyroidism, on Tapazole Attestations Medical Necessity Statement*: Patient requires hospitalization for COVID-19 pneumonia Coding Level of Care Code 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
[2021-10-06] MEDS: remdesivir 100 MG in sodium chloride 0.9% (100 ml) 100 ML IV (17:12)
[2021-10-06 17:16] LABS: Glucose Point of Care 309 mg/dL (70-110)
[2021-10-06] MEDS: atorvastatin 40 mg Tablet 20 MG PO (20:19)
[2021-10-06] MEDS: trazodone 50 mg Tablet 100 MG PO (20:19)
[2021-10-06 21:07] LABS: Glucose Point of Care 299 mg/dL (70-110)
[2021-10-07] VITALS (13 sets, daily range): BP systolic 130–182; BP diastolic 68–98; PULSE 53–74; RESP 13–20; TEMP 36.5–37.1; O2SAT 90–95
[2021-10-07] MEDS: guaiFENesin-dextromethorphan UDC 10 mL PO ×6 (00:20→20:17)
[2021-10-07] MEDS: ipratropium-albuterol 3 mL Neb INHALATION ×4 (02:24→21:10)
[2021-10-07] MEDS: piperacillin-tazobactam 3.375 GM in sodium chloride 0.9% (plus) 50 ML IV ×3 (04:23→20:17)
[2021-10-07] MEDS: methIMAzole 5 MG Tablet 2.5 MG PO (05:20)
[2021-10-07] MEDS: aspirin 81 mg EC Tablet PO (05:21)
[2021-10-07 06:17] LABS: Basophils % 0.2 %; Eosinophils % 0.1 %; Hematocrit 40.3 % (42.0-52.0); Hemoglobin 12.5 g/dL (11.7-16.6); Lymphocytes # 0.2 10^3/uL (0.8-4.8); Lymphocytes % 2.6 %; Mean Corpuscular Hemoglobin 28.3 pg (28.0-34.0); Mean Corpuscular Volume 91.2 fl (80-94); Mean Platelet Volume 10.6 fL (7.4-10.4); Monocytes # 0.3 10^3/uL (0.2-0.9); Monocytes % 3.8 %; Neutrophils # 7.65 10^3/uL (1.8-7.7); Neutrophils % 90.7 %; Nucleated Red Blood Cells % 0 %; Platelet Count 360 10^3/cmm (130-400); Red Blood Count 4.42 10^6/uL (4.1-5.3); Red Cell Distribution Width 17.2 % (12.1-15.1); White Blood Count 8.4 10^3/uL (4.0-10.0)
[2021-10-07 06:51] LABS: Alanine Aminotransferase 32 U/L (0-41); Albumin Level 2.9 g/dL (3.5-5.2); Alkaline Phosphatase 57 IU/L (40-130); Anion Gap 14.5 (5-19); Aspartate Amino Transferase 16 U/L (0-40); Blood Urea Nitrogen 28 mg/dL (8-23); C Reactive Protein 7.8 mg/L (0.0-4.9); Carbon Dioxide 32 mmol/L (22-29); Chloride 90 mmol/L (98-107); Globulin 2.3 g/dL (1.3-4.6); Glomerular Filtration Rate 85.2 mL/min (90-130); Glucose 199 mg/dL (65-115); Magnesium 1.8 mg/dL (1.7-2.3); NT Pro B Type Natriuretic Pept 383 pg/mL (0-125); Osmolality Calculated 285 mOsm/kg (285-295); Phosphorus 2.1 mg/dL (2.5-4.5); Potassium 4.5 mmol/L (3.5-5.1); Procalcitonin 0.07 ng/mL (0-0.5); Sodium 132 mmol/L (136-145); Total Bilirubin 0.2 mg/dL (0.15-1.2); Total Protein 5.2 g/dL (6.6-8.7)
[2021-10-07 07:00] LABS: Glucose Point of Care 227 mg/dL (70-110)
[2021-10-07] MEDS: insulin lispro 100 unit/1 mL SUBCUT ×3 (09:05→22:02)
[2021-10-07] MEDS: atorvastatin 40 mg Tablet 80 MG PO (09:06)
[2021-10-07] MEDS: pantoprazole DR 40 mg Tablet PO ×2 (09:06→17:08)
[2021-10-07] MEDS: metoprolol tartrate 50 mg Tablet PO ×2 (09:06→17:08)
[2021-10-07] MEDS: amiodarone 200 mg Tablet PO (09:06)
[2021-10-07] MEDS: budesonide 0.5 mg/2 mL Neb INHALATION ×2 (10:06→21:11)
[2021-10-07] MEDS: enoxaparin 40 mg/0.4 mL Syringe SUBCUT (10:51)
[2021-10-07] MEDS: saline nasal spray 44mL Btl 2 SPRAY NASAL (10:51)
[2021-10-07 11:34] LABS: Glucose Point of Care 339 mg/dL (70-110)
--- NOTE | 2021-10-07 16:17 | P.PN_ITS ---
Subjective Subjective: Interval history: Patient was seen this morning, no fevers, chills, no nausea, vomiting, he continues to feel generalized weakness, shortness of breath with exertion Vitals/I&O/Wt Last Vital Signs Temp 97.7 F 10/07/21 15:22 Pulse 59 L 10/07/21 15:22 Resp 16 10/07/21 15:22 BP 143/83 10/07/21 15:22 Pulse Ox 91 10/07/21 15:22 10/07/21 10/07/21 10/07/21 06:59 14:59 22:59 Intake Total 530 / 2770 410 / 410 Output Total 300 / 2100 750 / 750 200 / 950 Balance 230 / 670 -340 / -340 -200 / -540 Weight last 48 hrs Weight 95.663 kg Weight 92.079 kg Physical Exam Const: COMMON NORMALS: no acute distress and patient oriented x3 Resp: COMMON NORMALS: normal respiratory effort, No retractions, No use of accessory muscles and clear to auscultation bilaterally AUSCULTATION: clear to auscultation bilaterally Cardio: COMMON NORMALS: regular rate, regular rhythm, S1 normal heart sound present and S2 normal heart sound present RATE: regular rate RHYTHM: regular rhythm HEART SOUNDS: S1 normal heart sound present and S2 normal heart sound present GI: COMMON NORMALS: Normal to inspection, nondistended, normoactive bowel sounds present, Soft to palpation and non-tender PALPATION: Yes Soft to palp ation Extremity: COMMON NORMALS: no pedal edema Neuro: COMMON NORMALS: patient oriented x3 Psych: COMMON NORMALS: mental status grossly normal Data : 10/07/21 05:19 10/07/21 05:19 Micro: Microbiology 10/01/21 16:45 Blood Culture - Final Blood NO GROWTH AFTER 5 DAYS 10/01/21 16:45 Blood Culture - Final Blood NO GROWTH AFTER 5 DAYS A&P Assessment and plan (1) Acute on chronic respiratory failure with hypoxemia: Status: Acute (2) COVID-19: Status: Acute (3) Acute kidney injury: Status: Acute (4) D-dimer, elevated: Status: Acute (5) COPD (chronic obstructive pulmonary disease): Status: Acute (6) Hyperthyroidism: Status: Acute Additional A&P Information Acute on chronic hypoxemic/hypercapnic respiratory failure with possible superimposed pneumonia / COPD exacerbation / COVID-19 infection - Supplemental 02 as needed - on 4L at baseline - currently 6L -Continue to monitor inflammatory markers - Duoneb q6hr scheduled - Pulmicort 0.5 mg Inh BID - Continue Decadron 6 mg IV daily -Completed remdesivir -Continue zosyn 3.375g IV q6hr -We will hold off on baricitinib -CT angiogram negative for pulmonary embolism -Initially on Heparin drip for elevated D-dimer.Has been stopped -Has hx of severe GI bleed -Incentive spirometer, flutter valve PT OT -1 dose of Lasix today - Sputum culture - No hx of MRSA - holding vancomycin COVID 19 Infection - Dx on 09/27 Acute Renal failure - Creatinine increased to now 1.1 -Continue to hold diuretic - Renal dosing of meds - Repeat BMP in am - Monitor u/o Severe Obstructive Sleep Apnea - Non-compliant with Bipap at home - Reordered Chronic diastolic HF - Grade 2 - Initially diuretics on hold due to KEI -Hold Lasix - Recent ECHO in 07/2021 -ejection fraction 65% - Daily weight Diabetes Mellitus - Sliding scale insulin -Start Levemir 10 units at bedtime - Diabetic diet - QACHS glucose checks Hx of GI bleed - Protonix - Prior EGD- gastritis - Capsule endoscopy at [facility] - no records available - Monitor h/h - as pt was started on heparin drip DVT ppx -Lovenox - SCD Additional Medical Problems - Paroxysmal Atrial Fibrillation - Moderate Aortic Stenosis - Hypertension - Hyperlipidemia - Hyperthyroidism, on Tapazole Attestations Medical Necessity Statement*: Patient requires hospitalization for acute respiratory failure secondary COVID-19 Coding Level of Care Code 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
[2021-10-07 17:02] LABS: Glucose Point of Care 134 mg/dL (70-110)
[2021-10-07] MEDS: FUROsemide 10 mg/mL SDV 4mL 40 MG IVP (17:04)
[2021-10-07 19:14] LABS: Procalcitonin 0.07 ng/mL (0-0.5)
[2021-10-07] MEDS: trazodone 50 mg Tablet 100 MG PO (20:17)
[2021-10-07] MEDS: atorvastatin 40 mg Tablet 20 MG PO (20:17)
[2021-10-07 21:33] LABS: Glucose Point of Care 225 mg/dL (70-110)
[2021-10-07] MEDS: dexamethasone 10 mg/mL INJ 6 MG IVP (23:17)
[2021-10-08] VITALS (10 sets, daily range): BP systolic 158–170; BP diastolic 77–87; PULSE 54–79; RESP 16–27; TEMP 36.7–36.9; O2SAT 84–94
[2021-10-08] MEDS: ipratropium-albuterol 3 mL Neb INHALATION ×3 (02:12→14:49)
[2021-10-08] MEDS: guaiFENesin-dextromethorphan UDC 10 mL PO ×3 (05:17→12:11)
[2021-10-08] MEDS: piperacillin-tazobactam 3.375 GM in sodium chloride 0.9% (plus) 50 ML IV ×2 (05:17→12:11)
[2021-10-08] MEDS: aspirin 81 mg EC Tablet PO (05:17)
[2021-10-08] MEDS: methIMAzole 5 MG Tablet 2.5 MG PO (05:17)
[2021-10-08 05:56] LABS: Basophils % 0.3 %; Eosinophils % 0.1 %; Hematocrit 39.8 % (42.0-52.0); Hemoglobin 12.4 g/dL (11.7-16.6); Lymphocytes # 0.3 10^3/uL (0.8-4.8); Lymphocytes % 2.9 %; Mean Corpuscular HGB Conc 31.2 g/dL (30.0-36.0); Mean Corpuscular Hemoglobin 28.2 pg (28.0-34.0); Mean Corpuscular Volume 90.5 fl (80-94); Mean Platelet Volume 10.6 fL (7.4-10.4); Monocytes # 0.3 10^3/uL (0.2-0.9); Monocytes % 3.4 %; Neutrophils # 8.33 10^3/uL (1.8-7.7); Neutrophils % 90.4 %; Nucleated Red Blood Cells % 0 %; Platelet Count 350 10^3/cmm (130-400); Red Cell Distribution Width 17.3 % (12.1-15.1); White Blood Count 9.2 10^3/uL (4.0-10.0)
[2021-10-08 06:17] LABS: Alanine Aminotransferase 32 U/L (0-41); Albumin Level 2.9 g/dL (3.5-5.2); Alkaline Phosphatase 56 IU/L (40-130); Aspartate Amino Transferase 17 U/L (0-40); Blood Urea Nitrogen 36 mg/dL (8-23); Calcium 8.3 mg/dL (8.5-10.5); Carbon Dioxide 32 mmol/L (22-29); Chloride 92 mmol/L (98-107); Globulin 2.2 g/dL (1.3-4.6); Glomerular Filtration Rate 85.2 mL/min (90-130); Glucose 187 mg/dL (65-115); Osmolality Calculated 297 mOsm/kg (285-295); Sodium 137 mmol/L (136-145); Total Bilirubin 0.2 mg/dL (0.15-1.2); Total Protein 5.1 g/dL (6.6-8.7)
[2021-10-08 06:21] LABS: C Reactive Protein 5.5 mg/L (0.0-4.9); NT Pro B Type Natriuretic Pept 364 pg/mL (0-125)
[2021-10-08 06:22] LABS: Anion Gap 17.7 (5-19); Potassium 4.7 mmol/L (3.5-5.1)
[2021-10-08] MEDS: budesonide 0.5 mg/2 mL Neb INHALATION (08:50)
[2021-10-08] MEDS: insulin lispro 100 unit/1 mL SUBCUT ×2 (09:09→12:11)
[2021-10-08] MEDS: amiodarone 200 mg Tablet PO (09:10)
[2021-10-08] MEDS: atorvastatin 40 mg Tablet 80 MG PO (09:11)
[2021-10-08] MEDS: pantoprazole DR 40 mg Tablet PO (09:11)
[2021-10-08] MEDS: metoprolol tartrate 50 mg Tablet PO (09:11)
[2021-10-08 09:30] LABS: Glucose Point of Care 300 mg/dL (70-110)
--- NOTE | 2021-10-08 10:23 | PC.SOCIAL ---
IMM Update pg 2 of IMM updated and reviewed w/ patient. Copy provided.
[2021-10-08 11:30] LABS: Glucose Point of Care 277 mg/dL (70-110)
[2021-10-08] MEDS: saline nasal spray 44mL Btl 2 SPRAY NASAL (12:00)
[2021-10-08] MEDS: enoxaparin 40 mg/0.4 mL Syringe SUBCUT (12:11)
--- NOTE | 2021-10-08 12:24 | P.DS_ITS ---
Discharge Providers Date of Admission: 10/01/21 19:22 Date of Discharge: October 08, 2021 Attending Provider at Admission: Marcos Rubin MD Attending Provider at Discharge: Unruly Bass MD Primary Care Provider: Nasreen Gomez Diagnoses at Discharge Discharge Diagnosis (1) Acute on chronic respiratory failure with hypoxemia: Status: Acute (2) COVID-19: Status: Acute (3) Acute kidney injury: Status: Acute (4) D-dimer, elevated: Status: Acute (5) COPD (chronic obstructive pulmonary disease): Status: Acute (6) Hyperthyroidism: Status: Acute Reason for Visit Reason for Visit: SOB, COVID Hospital Course Hospital Course 65-year-old male with a past medical history significant for hypertension, dyslipidemia, hyperthyroidism, paroxysmal atrial fibrillation not on anticoagulation due to GI beed, coronary artery disease, moderate aortic stenos is, chronic grade 2 diastolic dysfunction, obstructive sleep apnea using BIPAP, chronic obstructive pulmonary disease, chronic hypoxic/hypercapnic respiratory failure on 4L of o2 via NC and recent diagnosis of COVID-19 on 09/27 who presented to ER with shortness of breath. Patient was admitted to [facility] for acute on chronic hypoxemic hypercapnic respiratory failure with superimposed COVID-19 infection, received remdesivir, Decadron, antibiotic coverage for possible secondary bacterial pneumonia, CT angiogram negative for pulmonary embolism, received intermittent diuresis, clinically monitored. Patient clinically improved, had a slight acute on chronic diastolic CHF exacerbation requiring diuresis. Clinically improved to 4 L, completed remdesivir course, cultures have been negative so far. 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 Monitor for signs of DVT or pulmonary embolism if so go to emergency room. Physical Exam Const: COMMON NORMALS: no acute distress and patient oriented x3 Resp: COMMON NORMALS: normal respiratory effort, No retractions, No use of accessory muscles and clear to auscultation bilaterally AUSCULTATION: clear to auscultation bilaterally Cardio: COMMON NORMALS: regular rate, regular rhythm, S1 normal heart sound present and S2 normal heart sound present RATE: regular rate RHYTHM: regular rhythm HEART SOUNDS: S1 normal heart sound present and S2 normal heart sound present GI: COMMON NORMALS: Normal to inspection, nondistended, normoactive bowel sounds present, Soft to palpation and non-tender PALPATION: Yes Soft to palpation Extremity: COMMON NORMALS: no pedal edema Neuro: COMMON NORMALS: patient oriented x3 Psych: COMMON NORMALS: mental status grossly normal Discharge Data Data Completed and Pending: Completed Studies During Hospitalization Category Date Time Status CT angio chest PE protcl [id number] Rout ine Cat Scan 10/04/21 10:26 Completed XR chest 1V aftab ble [id number] Stat Exams 10/01/21 15:15 [place] [id number] Routin e Ultrasound 10/05/21 05:00 Completed Pending at discharge Category Date Time Status C Reactive Protei n AM LABS Lab 10/09/21 04:00 Ordered C Reactive Protei n AM LABS Lab 10/10/21 04:00 Ordered Erythrocyte Sedim entation Rate AM L ABS Lab 10/04/21 05:20 Received Erythrocyte Sedim entation Rate AM L ABS Lab 10/05/21 02:21 Received Erythrocyte Sedim entation Rate AM L ABS Lab 10/06/21 01:56 Received NT Pro B Type Barbara riuretic Pept QAM Lab 10/09/21 06:00 Ordered NT Pro B Type Barbara riuretic Pept QAM Lab 10/10/21 06:00 Ordered Labs from last 24 hours 10/08/21 10/08/21 10/08/21 11:17 08:04 05:12 WBC RBC Hgb Hct MCV MCH MCHC RDW Plt Count MPV Neut % (Auto) Lymph % (Auto) Beckham % (Auto) Eos % (Auto) Baso % (Auto) Neut # (Auto) Lymph # (Auto) Beckham # (Auto) Eos # (Auto) Baso # (Auto) Nucleated RBC % (a uto) Nucleated RBCs # Sodium 137 Potassium 4.7 Chloride 92 L Carbon Dioxide 32 H Anion Gap 17.7 BUN 36 H Creatinine 0.9 GFR Calculation 85.2 L Glucose 187 H POC Glucose 277 H 300 H Calculated Osmolal ity 297 H Calcium 8.3 L Total Bilirubin 0.2 AST 17 ALT 32 Alkaline Phosphata se 56 C-Reactive Protein NT-Pro-B Natriuret Pep Total Protein 5.1 L Albumin 2.9 L Globulin 2.2 Procalcitonin 10/08/21 10/08/21 10/07/21 05:12 05:12 21:30 WBC 9.2 RBC 4.40 Hgb 12.4 Hct 39.8 L MCV 90.5 MCH 28.2 MCHC 31.2 RDW 17.3 H Plt Count 350 MPV 10.6 H Neut % (Auto) 90.4 Lymph % (Auto) 2.9 Beckham % (Auto) 3.4 Eos % (Auto) 0.1 Baso % (Auto) 0.3 Neut # (Auto) 8.33 H Lymph # (Auto) 0.3 L Beckham # (Auto) 0.3 Eos # (Auto) 0.0 Baso # (Auto) 0.0 Nucleated RBC % (a uto) 0 Nucleated RBCs # 0.0 Sodium Potassium Chloride Carbon Dioxide Anion Gap BUN Creatinine GFR Calculation Glucose POC Glucose 225 H Calculated Osmolal ity Calcium Total Bilirubin AST ALT Alkaline Phosphata se C-Reactive Protein 5.5 H NT-Pro-B Natriuret Pep 364 H Total Protein Albumin Globulin Procalcitonin 10/07/21 10/07/21 18:29 16:58 WBC RBC Hgb Hct MCV MCH MCHC RDW Plt Count MPV Neut % (Auto) Lymph % (Auto) Beckham % (Auto) Eos % (Auto) Baso % (Auto) Neut # (Auto) Lymph # (Auto) Beckham # (Auto) Eos # (Auto) Baso # (Auto) Nucleated RBC % (a uto) Nucleated RBCs # Sodium Potassium Chloride Carbon Dioxide Anion Gap BUN Creatinine GFR Calculation Glucose POC Glucose 134 H Calculated Osmolal ity Calcium Total Bilirubin AST ALT Alkaline Phosphata se C-Reactive Protein NT-Pro-B Natriuret Pep Total Protein Albumin Globulin Procalcitonin 0.07 Vitals: Last Vital Signs Temp 98.1 F 10/08/21 11:15 Pulse 63 10/08/21 11:15 Resp 18 10/08/21 11:15 BP 158/77 10/08/21 11:15 Pulse Ox 90 10/08/21 11:15 Discharge Plan Discharge Patient Disposition: Home Condition: Stable Prescriptions: New doxycycline hyclate 100 mg tablet 100 mg PO BID 5 Days Qty: 10 RF: 0 insulin aspart U-100 [Novolog Flexpen U-100 Insulin] 100 unit/mL (3 mL) insulin pen See Rx Instructions .ROUTE .COMPLEX 30 Days Qty: 15 RF: 0 albuterol sulfate 90 mcg/actuation HFA aerosol inhaler 1 inh inhalation Q6H PRN (Reason: shortness of breath or wheezing) Qty: 8.5 RF: 0 Continued Pacerone 200 mg tablet 200 mg PO DAILY RF: 0 Lantus Solostar U-100 Insulin 100 unit/mL (3 mL) insulin pen 20 unit SUBCUT BEDTIME RF: 0 Yupelri 175 mcg/3 mL solution for nebulization 175 mcg inhalation DAILY Qty: 90 RF: 11 Vitamin B12 Gummies 1 - 2 tab PO DAILY RF: 0 formoterol fumarate [Perforomist] 20 mcg/2 mL Solution For Nebulization 2 ml INHALATION BID RF: 0 Farxiga 10 mg tablet 10 mg PO QAM RF: 0 aspirin 81 mg tablet,delayed release (DR/EC) 81 mg PO QAM RF: 0 benzonatate 100 mg Capsule 100 mg PO TID PRN (Reason: Cough) Qty: 14 RF: 0 metoprolol tartrate 50 mg tablet 50 mg PO BID RF: 0 rosuvastatin 20 mg tablet 20 mg PO DAILY RF: 0 Entresto 24-26 mg tablet 1 tab PO BID RF: 0 trazodone 50 mg tablet 100 mg PO BEDTIME RF: 0 methimazole 5 mg tablet 2.5 mg PO QAM RF: 0 Januvia 50 mg tablet 50 mg PO QAM RF: 0 omeprazole 40 mg capsule,delayed release(DR/EC) 40 mg PO QAM RF: 0 Jardiance 25 mg tablet 25 mg PO QAM RF: 0 Combivent Respimat 20-100 mcg/actuation mist 1 puff inhalation Q6H Qty: 4 RF: 0 Changed potassium chloride 20 mEq tablet extended release 20 meq PO DAILY Qty: 0 RF: 0 furosemide 40 mg tablet 40 mg PO DAILY Qty: 0 RF: 0 Discontinued metolazone 2.5 mg tablet 2.5 mg PO .COMPLEX 60 Days Qty: 35 RF: 0 azithromycin 250 mg tablet 250 mg PO .COMPLEX 60 Days Qty: 30 RF: 0 Discharge Orders: Discharge Order (Routine); Ordered 10/08/21 Ordered By: Unruly Bass Referrals: [facility] [Outside] Discharge Diet: Regular Discharge Activity: Resume usual activity Patient Instructions: Opioid Safety Activity Restrictions/Additional Instructions: -You have any increased risk of DVTs and pulmonary emboli associate with COVID- 19, remain mobile, monitor for calf pain or calf swelling or sudden onset of shortness of breath or hemoptysis if so will emergency room -Please continue to self isolate, socially distance, facemask, hand wash -Discussed with primary care provider about COVID-19 vaccination and/or booster -Please monitor blood sugars closely, insulin sliding scale provided as below Fingerstick Blood Glucose Insulin Units 141-180 mg/dl 4 units/SQ 181-220 mg/dl 6 units/SQ 221-260 mg/dl 8 units/SQ 261-300 mg/dl 10 units/SQ 301-350 mg/dl 12 units/SQ 351-400 mg/dl 14 units/SQ greater than 400 mg/dl 16 units/SQ -if blood sugar in the 500 call primary care blood sugars less than 60 drink or juice or eat a hard candy and go to the emergency room Discharge Attestations Time Spent in Discharge Care*: less than 30 min Status at Discharge: Cognitive status at discharge: cognitively intact , Behavioral status at discharge: cooperative , Quality Metrics Clinical Quality Measures During this hospital stay, did patient experience: None Coding Level of Care Code Acute g FW NC note Diagnoses Acute on chronic respiratory failure with hypoxemia J96.21 COVID-19 U07.1 Acute kidney injury N17.9 D-dimer, elevated R79.89 COPD (chronic obstructive pulmonary disease) J44.9 Hyperthyroidism E05.90
--- NOTE | 2021-10-08 15:38 | PC.NURSE ---
Pt is demanding to be wheeled out and says his ride is here and he is not waiting on pharmacy to deliver his new medications. Pt states that he will roller picker his medication tomorrow from the pharmacy. Dedra from pharmacy was notified of this.
== END 2021-10-08 15:41 | disposition home health service (06) | DRG 177 ==
LOC: ER 17:15 → MEDSURG 19:23
PROVIDERS: Hospitalist; Admitting Provider Internal Medicine; Emergency Provider Family Medicine; PCP Physician Assistant; Visit Provider Family Medicine
DX: U07.1 COVID-19 (principal); J12.82 Pneumonia due to coronavirus disease 2019; I50.33 Acute on chronic diastolic (congestive) heart failure; J15.9 Unspecified bacterial pneumonia; J96.22 Acute and chronic respiratory failure with hypercapnia; J96.21 Acute and chronic respiratory failure with hypoxia; I13.0 Hypertensive heart and chronic kidney disease with heart failure and stage 1 through stage 4 chronic kidney disease, or unspecified chronic kidney disease; J44.1 Chronic obstructive pulmonary disease with (acute) exacerbation; J44.0 Chronic obstructive pulmonary disease with (acute) lower respiratory infection; N17.9 Acute kidney failure, unspecified; E11.65 Type 2 diabetes mellitus with hyperglycemia; E11.22 Type 2 diabetes mellitus with diabetic chronic kidney disease; N18.2 Chronic kidney disease, stage 2 (mild); Z99.81 Dependence on supplemental oxygen; I48.0 Paroxysmal atrial fibrillation; I25.10 Atherosclerotic heart disease of native coronary artery without angina pectoris; I25.2 Old myocardial infarction; I35.0 Nonrheumatic aortic (valve) stenosis; G47.33 Obstructive sleep apnea (adult) (pediatric); F17.210 Nicotine dependence, cigarettes, uncomplicated; E05.90 Thyrotoxicosis, unspecified without thyrotoxic crisis or storm; Z87.01 Personal history of pneumonia (recurrent); Z79.84 Long term (current) use of oral hypoglycemic drugs; Z79.82 Long term (current) use of aspirin; Z79.4 Long term (current) use of insulin
CPT/HCPCS: 36415; 36416; 36600; 71045; 71275; 80053; 82728; 82803; 82962; 83605; 83615; 83735; 83880; 84100; 84145; 84443; 85025; 85378; 85651; 85730; 86140; 87040; 87070; 87205; 87635; 93005; 93970; 94640; 94660; 94664; 94667; 96365; 96366; 96372; 96375; 99291; J1100; J1644; J1650; J1815; J1940; J1956; J2543; J7626; Q9967

== ENCOUNTER → 2021-10-21 13:25 | Outpatient (BNVA) | payer MEDICARE, MEDICAID, SELFPAY | PROVIDERS: PCP Physician Assistant; Visit Provider Internal Medicine | DX: E11.65 Type 2 diabetes mellitus with hyperglycemia (principal); E11.22 Type 2 diabetes mellitus with diabetic chronic kidney disease; E11.59 Type 2 diabetes mellitus with other circulatory complications; N18.2 Chronic kidney disease, stage 2 (mild); E05.90 Thyrotoxicosis, unspecified without thyrotoxic crisis or storm; I25.10 Atherosclerotic heart disease of native coronary artery without angina pectoris; I48.91 Unspecified atrial fibrillation; F17.210 Nicotine dependence, cigarettes, uncomplicated; Z79.4 Long term (current) use of insulin | CPT/HCPCS: 99214 ==

== ENCOUNTER 2021-11-02 14:58 | Inpatient (IN) | payer MEDICARE, MEDICAID, SELFPAY ==
[2021-11-02] VITALS (19 sets, daily range): BP systolic 111–153; BP diastolic 66–103; PULSE 67–74; RESP 14–19; TEMP 36.7–37; O2SAT 89–99; BMI 35.2
--- NOTE | 2021-11-02 15:07 | XR_ITS ---
WS: [id number] Portable AP upright chest, 11/02/2021 Clinical Data: dyspnea/cough Comparison: Portable chest, 10/01/2021 Findings: The patchy bilateral pulmonary opacities haven't changed little compared to the prior study . The heart remains enlarged. No nodules, masses or pneumothorax is seen. XR/XR chest 1V portable [id number] Impression: 1. No change in patchy bilateral pulmonary opacities consistent with pneumonia. 2. Cardiomegaly.
--- NOTE | 2021-11-02 15:08 | ECG_ITS ---
[facility] Test Date: 2021-11-02 Pat Name: Nagi Cuellar Department: Room: Gender: Male [employer] Supervisor: : 1955 Requested By: Nagi Arita Order Number: [id number] Reading MD: Dannielle Butler M.D. Measurements Intervals Hoople Rate: 70 P: 2 WV: 198 QRS: 31 QRSD: 104 T: 59 QT: 386 QTc: 417 Interpretive Statements SINUS RHYTHM INCOMPLETE RIGHT BUNDLE BRANCH BLOCK [90+ ms QRS DURATION, TERMINAL R IN V1/V2, 40+ ms S IN I/aVL/V4/V5/V6] SEPTAL MYOCARDIAL INFARCTION , OF INDETERMINATE AGE [40+ ms Q WAVE IN V1/V2] Compared to ECG 10/01/2021 16:14:45 No significant changes Electronically Signed On 11-03-2021 0:04:59 ANODE WORKER by Dannielle Butler M.D. [email or web address]
--- NOTE | 2021-11-02 15:09 | W.ED.SOB ---
HPI - SOB/Dyspnea General: Chief Complaint: Shortness of Breath/Dyspnea Stated Complaint: COPD EXACERBATION Time Seen by Provider: 11/02/21 15:02 History of Present Illness: HPI Narrative: 66-year-old male presents emergency room complaining of shortness of breath. Last 4 days he has had progressive worsening of difficulty breathing. He is chronically on 4 L by nasal cannula and is felt the need that he has been trying multiple nebulizers with minimal relief of symptoms. Patient has pretty severe end-stage COPD in addition that he has congestive heart failure atrial fibrillation and diabetes. He denies any fever sweats chills is not had a productive cough patient was diagnosed with COVID and treated last month he seems for the most part everything recovered from that. He is not really having any chest pain at this time. MD elicited complaint: shortness of breath and cough Pertinent past history: COPD Onset (ago): day(s) (4) Timing: constant Severity: moderate Exacerbating factors: nothing Relieving factors: nothing Known history of: COPD Associated symptoms: Reports chest congestion, cough, myalgias and orthopnea; Deny abdominal pain, fever(s), nausea or vomiting Treatment prior to arrival: oxygen and bronchodilator Review of Systems Const: Denies: fever(s), chills, body aches, change in appetite, fatigue or malaise ENMT: Denies: throat pain, ear or mastoid pain, nasal discharge or nasal congestion Card: Reports: orthopnea Resp: Reports: chest congestion GI: Denies: abdominal pain, nausea, vomiting, hematemesis, coffee ground emesis, diarrhea, constipation, bloating, hematochezia or melena : Denies: flank pain, dysuria, urinary frequency or urinary urgency Skin/Breast: Denies: rash or pruritus [facility] ED PFSH: Medical History (Updated 11/02/21 @ 16:57 by Nagi Olivarez, ) Acute exacerbation of chronic obstructive airways disease Acute hypercapnic respiratory failure Atrial fibrillation Atrial fibrillation with rapid ventricular response CAD (coronary artery disease) Chest pain CHF (congestive heart failure) Chronic kidney disease, stage II (mild) Chronic respiratory failure with hypoxia Congestive heart failure COPD (chronic obstructive pulmonary disease) Cor pulmonale Diabetes Elevated troponin I level Heart attack Hypertension Hypoxia Moderate aortic stenosis Nicotine addiction DAYNE (obstructive sleep apnea) Pneumonia Surgical History H/O hernia repair Family History Mother Lung disease COPD Sister Cancer Social History Smoking and tobacco status: current some day smoker cigarettes Years cigarettes smoked: 47 [ Other cigarette details: Hx of 2PPD x 47 Years ] Quit status (tobacco): considering quitting Second hand smoke exposure: Yes Smoking risk assessment/counseling performed?: Yes Alcohol intake: current Alcohol intake frequency: holidays/special occasions only Desire information about alcohol rehabilitation?: No Counseling given: No Desire information about substance/drug rehabilitation?: No Counseling given: No Caregiver/support person: Yes Lives independently: Yes Household members: none Marital status: Single Current occupational status: disabled and 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 History of recent travel: No Current gender identity: Male Physical Exam Const: GENERAL APPEARANCE: cooperative and comfortable ORIENTATION/CONSCIOUSNESS: Yes awake, Yes oriented to person, Yes oriented to place and Yes oriented to time HENMT: COMMON NORMALS: normocephalic, atraumatic and hearing grossly normal bilaterally HEAD & SCALP: normocephalic and atraumatic Resp: AUSCULTATION: rhonchi, wheezes and diminished lung sounds Cardio: COMMON NORMALS: regular rate, regular rhythm and No murmurs present (Cardio) RATE: regular rate RHYTHM: regular rhythm GI: COMMON NORMALS: Soft to palpation and No hepatosplenomegaly present AUSCULTATION: Yes normoactive bowel sounds PALPATION: Yes Soft to palpation, No Tenderness to palpation present (GI), No Guarding due to palpation present (GI) and Yes No hepatosplenomegaly present Extremity: COMMON NORMALS: normal to inspection, capillary refill normal, no clubbing, cyanosis or edema, no calf tenderness and no pedal edema Neuro: SENSORIUM/ORIENTATION: Yes oriented to person, Yes oriented to place and Yes oriented to time Skin: COMMON NORMALS: no rashes or lesions noted GENERAL SKIN EXAM: no rashes or lesions noted Course Vital Signs: Vital signs: Vital Signs Pulse Rate 67 11/02/21 15:50 Respiratory Rate 18 11/02/21 15:30 Blood Pressure 136/76 11/02/21 16:15 Pulse Oximetry 89 L 11/02/21 16:15 MDM - SOB/Dyspnea MDM Narrative: Medical decision making narrative: Labs imaging and EKG reviewed. Patient has bilateral lower lobe pneumonias with exact acute exacerbation COPD with hypercapnic respiratory failure. Patient to be admitted started on IV antibiotics BiPAP for the hypercapnia discussed with hospitalist orders written Lab Data: Labs: Lab Results 11/02/21 11/02/21 11/02/21 15:07 15:10 15:10 WBC 6.3 10^3/uL 10^3/ uL (4.0-10.0) RBC 4.41 10^6/uL 10^6 /uL (4.1-5.3) Hgb 12.8 g/dL g/dL (11.7-16.6) Hct 41.6 % L % (42.0-52.0) MCV 94.3 fl H fl (80-94) MCH 29.0 pg pg (28.0-34.0) MCHC 30.8 g/dL g/dL (30.0-36.0) RDW 17.4 % H % (12.1-15.1) Plt Count 272 10^3/cmm 10^3 /cmm (130-400) MPV 10.8 fL H fL (7.4-10.4) Neut % (Auto) 75.2 % % Lymph % (Auto) 7.9 % % Ransom % (Auto) 11.8 % % Eos % (Auto) 2.7 % % Baso % (Auto) 1.3 % % Neut # (Auto) 4.76 10^3/uL 10^3 /uL (1.8-7.7) Lymph # (Auto) 0.5 10^3/uL L 10^ 3/uL (0.8-4.8) Ransom # (Auto) 0.8 10^3/uL 10^3/ uL (0.2-0.9) Eos # (Auto) 0.2 10^3/uL 10^3/ uL (0.0-0.8) Baso # (Auto) 0.1 10^3/uL 10^3/ uL (0.0-0.1) Nucleated RBC % (a uto) 0 % % Nucleated RBCs # 0.0 /100WBC /100W BC Specimen Type Arterial Sample Site Radial, left ABG pH 7.31 L (7.35-7.45) ABG pCO2 81.0 mmHg H* mmHg (35-45) ABG pO2 57.9 mmHg L mmHg (80.0-100.0) ABG HCO3 41.0 mmol/L H mmo l/L (22-26) ABG O2 Saturation 90.7 ABG Base Excess 11.4 mmol/L H mmo l/L (-2.0-2.0) Gee Test Pos A-a O2 Gradient 12.8 mmHg H mmHg (5-10) Hematocrit 39.9 % L % (42-52) Hgb O2 Saturation 83.6 % L % (95-100) Carboxyhemoglobin 6.7 %THgb %THgb (0.4-20.1) Methemoglobin 1.1 % % (0.4-1.5) Total Hemoglobin 13.0 g/dL L g/dL (14-18) Sodium 136.0 mmol/L mmol /L Cancelled (131-143) Potassium 4.2 mmol/L mmol/L Cancelled (3.5-5.0) Glucose 176.0 mg/dL H mg/ dL Cancelled (70-115) Ionized Calcium 1.2 mmol/L mmol/L (1.1-1.4) O2 Delivery Device Nc O2 Liters/Min 4.0 % % FiO2 36.0 % % Mig Tig Welder ID [place]ro Chloride Cancelled Carbon Dioxide Cancelled Anion Gap Cancelled BUN Cancelled Creatinine Cancelled GFR Calculation Cancelled Calculated Osmolal ity Cancelled Lactic Acid Lactate Calcium Cancelled Total Bilirubin Cancelled AST Cancelled ALT Cancelled Alkaline Phosphata se Cancelled Creatine Kinase Cancelled Troponin T Baselin e Total Protein Cancelled Albumin Cancelled Globulin Cancelled 11/02/21 11/02/21 11/02/21 15:10 15:10 15:50 WBC RBC Hgb Hct MCV MCH MCHC RDW Plt Count MPV Neut % (Auto) Lymph % (Auto) Ransom % (Auto) Eos % (Auto) Baso % (Auto) Neut # (Auto) Lymph # (Auto) Ransom # (Auto) Eos # (Auto) Baso # (Auto) Nucleated RBC % (a uto) Nucleated RBCs # Specimen Type Sample Site ABG pH ABG pCO2 ABG pO2 ABG HCO3 ABG O2 Saturation ABG Base Excess Gee Test A-a O2 Gradient Hematocrit Hgb O2 Saturation Carboxyhemoglobin Methemoglobin Total Hemoglobin Sodium 140 mmol/L mmol/L (136-145) Potassium Glucose Ionized Calcium O2 Delivery Device O2 Liters/Min FiO2 Mig Tig Welder ID Chloride 102 mmol/L mmol/L (98-107) Carbon Dioxide Anion Gap 9.3 (5-19) BUN 14 mg/dL mg/dL (8-23) Creatinine GFR Calculation Calculated Osmolal ity 292 mOsm/kg mOsm/ kg (285-295) Lactic Acid Cancelled Lactate Calcium Total Bilirubin 0.2 mg/dL mg/dL (0.15-1.2) AST 6 U/L U/L (0-40) ALT 8 U/L U/L (0-41) Alkaline Phosphata se 54 IU/L IU/L (40-130) Creatine Kinase Troponin T Baselin e Cancelled Total Protein Albumin Globulin 1.9 g/dL g/dL (1.3-4.6) 11/02/21 11/02/21 15:50 15:50 WBC RBC Hgb Hct MCV MCH MCHC RDW Plt Count MPV Neut % (Auto) Lymph % (Auto) Ransom % (Auto) Eos % (Auto) Baso % (Auto) Neut # (Auto) Lymph # (Auto) Ransom # (Auto) Eos # (Auto) Baso # (Auto) Nucleated RBC % (a uto) Nucleated RBCs # Specimen Type Sample Site ABG pH ABG pCO2 ABG pO2 ABG HCO3 ABG O2 Saturation ABG Base Excess Gee Test A-a O2 Gradient Hematocrit Hgb O2 Saturation Carboxyhemoglobin Methemoglobin Total Hemoglobin Sodium Potassium Glucose Ionized Calcium O2 Delivery Device O2 Liters/Min FiO2 Mig Tig Welder ID Chloride Carbon Dioxide Anion Gap BUN Creatinine GFR Calculation Calculated Osmolal ity Lactic Acid Lactate 0.7 mmol/L mmol/L (0.5-2.2) Calcium Total Bilirubin AST ALT Alkaline Phosphata se Creatine Kinase Troponin T Baselin e 45 ng/L H ng/L (0-15) Total Protein Albumin Globulin Discharge Plan Discharge Patient Disposition: Admitted As Inpatient Clinical Impression: Acute exacerbation of chronic obstructive airways disease, Uncontrolled type 2 diabetes mellitus, Coronary artery disease due to type 2 diabetes mellitus, Hyperthyroidism, Diabetes, Atrial fibrillation, Acute hypercapnic respiratory failure, Pneumonia Condition: Stable Coding Level of Care Code ED Senior Loss Control Specialist for [facility] Fwd Exam Detailed
[2021-11-02 15:26] LABS: Basophils # 0.1 10^3/uL (0.0-0.1); Basophils % 1.3 %; Eosinophils # 0.2 10^3/uL (0.0-0.8); Eosinophils % 2.7 %; Hematocrit 41.6 % (42.0-52.0); Hemoglobin 12.8 g/dL (11.7-16.6); Lymphocytes # 0.5 10^3/uL (0.8-4.8); Lymphocytes % 7.9 %; Mean Corpuscular HGB Conc 30.8 g/dL (30.0-36.0); Mean Corpuscular Volume 94.3 fl (80-94); Mean Platelet Volume 10.8 fL (7.4-10.4); Monocytes # 0.8 10^3/uL (0.2-0.9); Monocytes % 11.8 %; Neutrophils # 4.76 10^3/uL (1.8-7.7); Neutrophils % 75.2 %; Nucleated Red Blood Cells % 0 %; Platelet Count 272 10^3/cmm (130-400); Red Blood Count 4.41 10^6/uL (4.1-5.3); Red Cell Distribution Width 17.4 % (12.1-15.1); White Blood Count 6.3 10^3/uL (4.0-10.0)
[2021-11-02 15:40] LABS: ABG PH Result 7.31 (7.35-7.45); Alveolar-Arterial Oxygen Gradi 12.8 mmHg (5-10); Arterial Blood Gas Hematocrit 39.9 % (42-52); Base Excess ABG 11.4 mmol/L (-2.0-2.0); Blood Gas Allen Test Pos; Blood Gas Operator Identificat MONRO; Blood Gas Sample Site Radial, left; Blood Gas Sample Type Arterial; Carboxyhemoglobin 6.7 %THgb (0.4-20.1); HGB O2 Sat 83.6 % (95-100); Ionized Calcium Level - ABG 1.2 mmol/L (1.1-1.4); Methemoglobin 1.1 % (0.4-1.5); Oxygen Device NC; Oxygen Saturation ABG 90.7; PO2 ABG 57.9 mmHg (80.0-100.0); Potassium Level - ABG 4.2 mmol/L (3.5-5.0)
[2021-11-02] MEDS: ipratropium-albuterol 3 mL Neb INHALATION (15:47)
[2021-11-02 16:28] LABS: Lactate (Lactic Acid level) 0.7 mmol/L (0.5-2.2)
[2021-11-02 16:30] LABS: Troponin(5th) Baseline 45 ng/L (0-15)
[2021-11-02] MEDS: piperacillin-tazobactam 3.375 GM in sodium chloride 0.9% (plus) 50 ML IV (16:31)
[2021-11-02 16:32] LABS: Alanine Aminotransferase 8 U/L (0-41); Alkaline Phosphatase 54 IU/L (40-130); Anion Gap 9.3 (5-19); Aspartate Amino Transferase 6 U/L (0-40); Blood Urea Nitrogen 14 mg/dL (8-23); Chloride 102 mmol/L (98-107); Globulin 1.9 g/dL (1.3-4.6); Osmolality Calculated 292 mOsm/kg (285-295); Sodium 140 mmol/L (136-145); Total Bilirubin 0.2 mg/dL (0.15-1.2)
--- NOTE | 2021-11-02 16:43 | PM.HP ---
Providers/Chief Complaint Primary Care Provider: Nasreen Gomez Chief Complaint: COPD EXACERBATION History of Present Illness Nagi Cuellar is a 66 year old male with past medical history of advanced COPD, chronic respiratory failure, home O2 dependent, recent Covid pneumonia, hypertension, dyslipidemia, atrial fibrillation, coronary artery disease, aortic stenosis, diabetes, sleep apnea, diastolic dysfunction, history of significant GI bleeding who is presenting with complaints of severe shortness of breath. The patient is found to have severe hypercapnia and hyper toxemia in the emergency room. Started on BiPAP. Currently feels better. He reports that his symptoms started 4 days ago and progressively got worse. He describes his symptoms as severe. Reports similar episodes in the past. He reports associated productive cough. He cannot describe his sputum. He denies chest pain, increased peripheral swelling, palpitations, dizziness or lightheadedness, fever or chills. Reports wheezes. Unfortunately he is still smokes cigarettes. He reports being compliant with his home medications. Denies any recent changes to his medications. Review of Systems General: Reports: 10 or more systems reviewed and unremarkable except in HPI and below Medications/Allergies Home Medications Medication Instructions Recorded Confirmed Last Taken Type methimazole 2.5 mg PO QAM 01/15/21 10/21/21 07/17/21 History Jardiance 25 mg PO QAM 07/18/21 10/21/21 07/17/21 History omeprazole 40 mg PO QAM 07/18/21 10/21/21 07/17/21 History sitagliptin 50 mg tablet 50 mg PO QAM tab 07/23/21 10/21/21 Unknown History Farxiga 10 mg PO QAM 08/02/21 10/21/21 Unknown History Vitamin B12 Gummies 1 - 2 tab PO DAILY 08/02/21 10/21/21 Unknown History amiodarone 200 mg tablet 200 mg PO DAILY tab 08/10/21 10/21/21 Unknown History aspirin 81 mg PO QAM 08/12/21 10/21/21 Unknown History benzonatate 100 mg PO TID PRN #14 cap 08/17/21 10/21/21 Unknown Rx insulin glargine 100 unit/mL (3 20 unit SUBCUT BEDTIME ml 09/21/21 10/21/21 Unknown History mL) subcutaneous pen trazodone 50 mg tablet 100 mg PO BEDTIME tab 09/21/21 10/21/21 Unknown History Entresto 1 tab PO BID 10/01/21 10/21/21 Unknown History metoprolol tartrate 50 mg PO BID 10/01/21 10/21/21 Unknown History rosuvastatin 20 mg PO DAILY 10/01/21 10/21/21 Unknown History albuterol sulfate 1 inh INHALATION Q6H PRN #8.5 g 10/08/21 10/21/21 Unknown Rx furosemide 40 mg PO DAILY #0 tab 10/08/21 10/21/21 Unknown Rx insulin aspart U-100 [Novolog See Rx Instructions .ROUTE 10/08/21 10/21/21 Unknown Rx Flexpen U-100 Insulin] .COMPLEX 30 Days #15 ml potassium chloride 20 meq PO DAILY #0 tab 10/08/21 10/21/21 Unknown Rx formoterol fumarate 20 mcg/2 mL 2 ml INHALATION BID #120 ml 10/15/21 10/21/21 Unknown Rx solution for nebulization ipratropium 20 mcg-albuterol 100 1 puff INHALATION Q6H #4 g 10/15/21 10/21/21 Unknown Rx mcg/actuation mist for inhalation revefenacin 175 mcg/3 mL solution 175 mcg INHALATION DAILY #90 ml 10/15/21 10/21/21 Unknown Rx for nebulization Allergies Allergy/AdvReac Type Severity Reaction Status Date / Time No Known Allergies Allergy Verified 11/02/21 15:01 PFSH Acute PFSH: Medical History (Updated 11/02/21 @ 16:49 by Navin Miguel) Acute exacerbation of chronic obstructive airways disease Acute hypercapnic respiratory failure Atrial fibrillation Atrial fibrillation with rapid ventricular response CAD (coronary artery disease) Chest pain CHF (congestive heart failure) Chronic kidney disease, stage II (mild) Chronic respiratory failure with hypoxia Congestive heart failure COPD (chronic obstructive pulmonary disease) Cor pulmonale Diabetes Elevated troponin I level Heart attack Hypertension Hypoxia Moderate aortic stenosis Nicotine addiction DAYNE (obstructive sleep apnea) Pneumonia Surgical History H/O hernia repair Family History Mother Lung disease COPD Sister Cancer Social History Smoking and tobacco status: current some day smoker cigarettes Years cigarettes smoked: 47 [ Other cigarette details: Hx of 2PPD x 47 Years ] Quit status (tobacco): considering quitting Second hand smoke exposure: Yes Smoking risk assessment/counseling performed?: Yes Alcohol intake: current Alcohol intake frequency: holidays/special occasions only Desire information about alcohol rehabilitation?: No Counseling given: No Desire information about substance/drug rehabilitation?: No Counseling given: No Caregiver/support person: Yes Lives independently: Yes Household members: none Marital status: Single Current occupational status: disabled and 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 Mild distress secondary to cough and shortness of breath. Mood and affect are appropriate. Responses are adequate. Skin is warm and dry. Moist mucous membranes Eyes PERRL. 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 Neck is supple. No JVD Lungs bilateral wheezes and crackles are present. No accessory muscle use. Heart S1, S2, regular Abdomen is obese, soft, nontender, bowel sounds are present Extremities chronic venous stasis changes. Bilateral pedal edema. No cyanosis. No calf tenderness bilaterally Moves all extremities. Data : 11/02/21 15:10 11/02/21 15:50 Other Labs: Laboratory Results WBC 6.3 10^3/uL (4.0-10.0) 11/02/21 15:10 RBC 4.41 10^6/uL (4.1-5.3) 11/02/21 15:10 Hgb 12.8 g/dL (11.7-16.6) 11/02/21 15:10 Hct 41.6 % (42.0-52.0) L 11/02/21 15:10 MCV 94.3 fl (80-94) H 11/02/21 15:10 MCH 29.0 pg (28.0-34.0) 11/02/21 15:10 MCHC 30.8 g/dL (30.0-36.0) 11/02/21 15:10 RDW 17.4 % (12.1-15.1) H 11/02/21 15:10 Plt Count 272 10^3/cmm (130-400) 11/02/21 15:10 MPV 10.8 fL (7.4-10.4) H 11/02/21 15:10 Neut % (Auto) 75.2 % 11/02/21 15:10 Lymph % (Auto) 7.9 % 11/02/21 15:10 [place] % (Auto) 11.8 % 11/02/21 15:10 Eos % (Auto) 2.7 % 11/02/21 15:10 Baso % (Auto) 1.3 % 11/02/21 15:10 Neut # (Auto) 4.76 10^3/uL (1.8-7.7) 11/02/21 15:10 Lymph # (Auto) 0.5 10^3/uL (0.8-4.8) L 11/02/21 15:10 [place] # (Auto) 0.8 10^3/uL (0.2-0.9) 11/02/21 15:10 Eos # (Auto) 0.2 10^3/uL (0.0-0.8) 11/02/21 15:10 Baso # (Auto) 0.1 10^3/uL (0.0-0.1) 11/02/21 15:10 Nucleated RBC % (auto) 0 % 11/02/21 15:10 Nucleated RBCs # 0.0 /100WBC 11/02/21 15:10 Specimen Type Arterial 11/02/21 15:07 Sample Site Radial, left 11/02/21 15:07 ABG pH 7.31 (7.35-7.45) L 11/02/21 15:07 ABG pCO2 81.0 mmHg (35-45) H* 11/02/21 15:07 ABG pO2 57.9 mmHg (80.0-100.0) L 11/02/21 15:07 ABG HCO3 41.0 mmol/L (22-26) H 11/02/21 15:07 ABG O2 Saturation 90.7 11/02/21 15:07 ABG Base Excess 11.4 mmol/L (-2.0-2.0) H 11/02/21 15:07 Gee Test Pos 11/02/21 15:07 A-a O2 Gradient 12.8 mmHg (5-10) H 11/02/21 15:07 Hematocrit 39.9 % (42-52) L 11/02/21 15:07 Hgb O2 Saturation 83.6 % (95-100) L 11/02/21 15:07 Carboxyhemoglobin 6.7 %THgb (0.4-20.1) 11/02/21 15:07 Methemoglobin 1.1 % (0.4-1.5) 11/02/21 15:07 Total Hemoglobin 13.0 g/dL (14-18) L 11/02/21 15:07 Sodium 136.0 mmol/L (131-143) 11/02/21 15:07 Potassium 4.2 mmol/L (3.5-5.0) 11/02/21 15:07 Glucose 176.0 mg/dL (70-115) H 11/02/21 15:07 Ionized Calcium 1.2 mmol/L (1.1-1.4) 11/02/21 15:07 O2 Delivery Device Nc 11/02/21 15:07 O2 Liters/Min 4.0 % 11/02/21 15:07 FiO2 36.0 % 11/02/21 15:07 Stretching Machine Tender Frame ID Ellen[place] 11/02/21 15:07 Sodium 140 mmol/L (136-145) 11/02/21 15:50 Potassium Cancelled 11/02/21 15:10 Chloride 102 mmol/L (98-107) 11/02/21 15:50 Carbon Dioxide Cancelled 11/02/21 15:10 Anion Gap 9.3 (5-19) 11/02/21 15:50 BUN 14 mg/dL (8-23) 11/02/21 15:50 Creatinine Cancelled 11/02/21 15:10 GFR Calculation Cancelled 11/02/21 15:10 Glucose Cancelled 11/02/21 15:10 Calculated Osmolality 292 mOsm/kg (285-295) 11/02/21 15:50 Lactic Acid Cancelled 11/02/21 15:10 Lactate 0.7 mmol/L (0.5-2.2) 11/02/21 15:50 Calcium Cancelled 11/02/21 15:10 Total Bilirubin 0.2 mg/dL (0.15-1.2) 11/02/21 15:50 AST 6 U/L (0-40) 11/02/21 15:50 ALT 8 U/L (0-41) 11/02/21 15:50 Alkaline Phosphatase 54 IU/L (40-130) 11/02/21 15:50 Creatine Kinase Cancelled 11/02/21 15:10 Troponin T Baseline 45 ng/L (0-15) H 11/02/21 15:50 Total Protein Cancelled 11/02/21 15:10 Albumin Cancelled 11/02/21 15:10 Globulin 1.9 g/dL (1.3-4.6) 11/02/21 15:50 Impressions Chest X-Ray 11/02/21 15:07 Impression: 1. No change in patchy bilateral pulmonary opacities consistent with pneumonia. 2. Cardiomegaly. EKG reveals sinus rhythm, incomplete right bundle branch block, septal Q waves, unchanged EKG. Micro: Microbiology 11/02/21 15:10 Blood Culture - Preliminary Blood SPECIMEN COLLECTED A&P Assessment and plan (1) Respiratory failure, acute: Status: Acute (2) COPD (chronic obstructive pulmonary disease): Status: Acute (3) Congestive heart failure: Status: Acute (4) Atrial fibrillation: Status: Acute (5) Nicotine addiction: Status: Acute (6) Hypoxia: Status: Acute (7) Hypertension: Status: Acute (8) Diabetes: Status: Acute Additional A&P Information 66-year-old male with past medical history of advanced COPD, home O2, diastolic dysfunction, coronary artery disease, sleep apnea, diabetes, hypertension who is presenting with increasing shortness of breath, cough, wheezing. The symptoms and findings are consistent with COPD acute exacerbation. Acute hypoxic respiratory failure secondary to COPD acute exacerbation. Doubt bacterial pneumonia. The patient does not have leukocytosis or fever. Chest x-ray changes are probably residual from previous hospitalization for COVID-19. The patient is being admitted to [facility]. We will continue supplemental oxygen and BiPAP until stabilized. We will start aggressive management with steroids, respiratory treatments. The patient received vancomycin and Zosyn in ER. I will check procalcitonin level. Until then he will be on doxycycline. We will check BNP to assess cardiac function. In the meantime we will continue home cardiac medications including diuresis. History of CHF. As above. Diabetes. I will hold his oral home medications. However I will continue Lantus. I will add insulin sliding scale. Hypertension. Well-controlled currently. We will resume home medications. Will order as needed hydralazine. DVT prophylaxis. Teds and SCDs for now. Will discuss risks and benefits for chemical DVT prophylaxis with the patient. CODE STATUS. The patient wants to be full code. The plan of care was discussed with the patient. He verbalized understanding and agreement. Attestations Medical Necessity Statement*: Based on my assessment of patient's current condition, findings and diagnosis I expect that the patient will spend more than two midnights in the hospital. Coding Level of Care Code Acute Rubber Tile Floor Layer for [place] Diagnoses Respiratory failure, acute J96.00 COPD (chronic obstructive pulmonary disease) J44.9 Congestive heart failure I50.9 Atrial fibrillation I48.91 Nicotine addiction F17.200 Hypoxia R09.02 Hypertension I10 Diabetes E11.9
--- NOTE | 2021-11-02 17:08 | ECG_ITS ---
[facility] Test Date: 2021-11-02 Pat Name: Nagi Cuellar Department: Room: Gender: Male Spring Coverer: : 1955 Requested By: Nagi Arita Order Number: [id number] Dominguez MD: Dannielle Butler M.D. Measurements Intervals [place] Rate: 65 P: -1 DE: 189 QRS: 11 QRSD: 101 T: 68 QT: 404 QTc: 423 Interpretive Statements SINUS RHYTHM POSSIBLE RIGHT VENTRICULAR CONDUCTION DELAY [RSR (QR) IN V1/V2] Compared to ECG 11/02/2021 15:28:57 Incomplete right bundle-branch block no longer present Myocardial infarct finding no longer present Electronically Signed On 11-03-2021 0:17:06 ELECTRIC RANGE SERVICER by Dannielle Butler M.D. [id number]
[2021-11-02] MEDS: vancomycin 1,000 MG in sodium chloride 0.9% 250 ML 250 MG IV (17:11)
[2021-11-02 17:13] LABS: Potassium 3.3 mmol/L (3.5-5.1)
[2021-11-02 17:14] LABS: Carbon Dioxide 32 mmol/L (22-29); Glomerular Filtration Rate 135.6 mL/min (90-130)
[2021-11-02 17:15] LABS: Creatine Phosphokinase 24 U/L (39-308); Glucose 126 mg/dL (65-115); Total Protein 4.6 g/dL (6.6-8.7)
[2021-11-02 17:16] LABS: Albumin Level 2.7 g/dL (3.5-5.2)
[2021-11-02 17:18] LABS: Calcium 6.1 mg/dL (8.5-10.5)
[2021-11-02 17:32] LABS: Troponin 5 2HR 51.03 ng/L (0-15); Troponin 5 2HR Delta 6.03 ABS# (0-10)
[2021-11-02 17:42] LABS: Reflex Lactate Order REFLEX LACTIC ORDERD
[2021-11-02 17:48] LABS: Glucose Point of Care 178 mg/dL (70-110)
[2021-11-02] MEDS: insulin lispro 100 unit/1 mL SUBCUT ×2 (17:51→21:59)
[2021-11-02] MEDS: heparin 5,000 unit/mL INJ 1 mL 5000 UNIT SUBCUT (17:54)
[2021-11-02] MEDS: doxycycline 100 mg Tablet PO (17:56)
[2021-11-02 18:44] LABS: Lactic Acid level (Lactate) 0.8 mmol/L (0.5-2.2)
--- NOTE | 2021-11-02 21:08 | ECG_ITS ---
[facility] Test Date: 2021-12-01 Pat Name: Nagi Cuellar Department: Room: 279 Gender: Male Communication Instructor: : 1955 Requested By: Nagi Arita Order Number: [id number] Dominguez MD: Dannielle Butler M.D. Measurements Intervals [place] Rate: 59 P: 76 FL: 213 QRS: 68 QRSD: 100 T: 79 QT: 447 QTc: 444 Interpretive Statements SINUS BRADYCARDIA WITH FIRST DEGREE AV BLOCK POSSIBLE RIGHT VENTRICULAR CONDUCTION DELAY [RSR (QR) IN V1/V2] Compared to ECG 11/30/2021 14:45:52 First degree AV block now present Atrial flutter no longer present Incomplete right bundle-branch block no longer present Atrial abnormality no longer present Electronically Signed On 12-02-2021 0:10:56 GRAPHIC DESIGN ASSISTANT by Dannielle Butler M.D. [id number]
[2021-11-02 21:38] LABS: Glucose Point of Care 185 mg/dL (70-110)
[2021-11-02] MEDS: sacubitril/valsartan 24-26 mg Tablet 1 EACH PO (21:58)
[2021-11-02] MEDS: metoprolol tartrate 50 mg Tablet PO (21:58)
[2021-11-02] MEDS: insulin glargine 100 units/1 mL 20 UNIT SUBCUT (21:59)
[2021-11-02] MEDS: trazodone 50 mg Tablet 100 MG PO (21:59)
[2021-11-02 22:25] LABS: Troponin 5 6HR 50.32 ng/L (0-15); Troponin 5 6HR Delta 5.32 ng/L (0-12)
[2021-11-03] VITALS (12 sets, daily range): BP systolic 104–143; BP diastolic 53–75; PULSE 63–89; RESP 17–21; TEMP 36.6–37.2; O2SAT 90–99
[2021-11-03] MEDS: ipratropium-albuterol 3 mL Neb INHALATION ×2 (01:49→19:48)
[2021-11-03] MEDS: heparin 5,000 unit/mL INJ 1 mL 5000 UNIT SUBCUT ×2 (05:45→17:31)
[2021-11-03] MEDS: methIMAzole 5 MG Tablet 2.5 MG PO (05:45)
[2021-11-03] MEDS: aspirin 81 mg EC Tablet PO (05:45)
[2021-11-03 06:56] LABS: Glucose Point of Care 260 mg/dL (70-110)
[2021-11-03 07:36] LABS: Blood Urea Nitrogen 16 mg/dL (8-23); Calcium 8.4 mg/dL (8.5-10.5); Carbon Dioxide 37 mmol/L (22-29); Chloride 98 mmol/L (98-107); Glomerular Filtration Rate 97.3 mL/min (90-130); Glucose 128 mg/dL (65-115); Osmolality Calculated 293 mOsm/kg (285-295); Phosphorus 2.9 mg/dL (2.5-4.5); Sodium 140 mmol/L (136-145)
[2021-11-03 07:38] LABS: Anion Gap 10.4 (5-19); Potassium 5.4 mmol/L (3.5-5.1)
[2021-11-03] MEDS: insulin lispro 100 unit/1 mL SUBCUT ×4 (08:21→22:09)
[2021-11-03] MEDS: doxycycline 100 mg Tablet PO ×2 (08:21→17:30)
[2021-11-03] MEDS: pantoprazole DR 40 mg Tablet PO (08:21)
[2021-11-03] MEDS: atorvastatin 40 mg Tablet 80 MG PO (08:21)
[2021-11-03] MEDS: FUROsemide 40 mg Tablet PO (08:22)
[2021-11-03] MEDS: amiodarone 200 mg Tablet PO (08:22)
[2021-11-03] MEDS: metoprolol tartrate 50 mg Tablet PO ×2 (08:22→17:31)
[2021-11-03 08:36] LABS: NT Pro B Type Natriuretic Pept 442 pg/mL (0-125); Procalcitonin 0.05 ng/mL (0-0.5)
[2021-11-03 08:45] LABS: Basophils # 0.1 10^3/uL (0.0-0.1); Basophils % 0.9 %; Eosinophils % 0.3 %; Hematocrit 41.7 % (42.0-52.0); Hemoglobin 12.7 g/dL (11.7-16.6); Lymphocytes # 0.3 10^3/uL (0.8-4.8); Lymphocytes % 4.3 %; Mean Corpuscular HGB Conc 30.5 g/dL (30.0-36.0); Mean Corpuscular Hemoglobin 28.6 pg (28.0-34.0); Mean Corpuscular Volume 93.9 fl (80-94); Mean Platelet Volume 10.6 fL (7.4-10.4); Monocytes # 0.2 10^3/uL (0.2-0.9); Monocytes % 3.1 %; Neutrophils # 5.88 10^3/uL (1.8-7.7); Neutrophils % 90.6 %; Nucleated Red Blood Cells % 0 %; Platelet Count 272 10^3/cmm (130-400); Red Blood Count 4.44 10^6/uL (4.1-5.3); Red Cell Distribution Width 17.3 % (12.1-15.1); White Blood Count 6.5 10^3/uL (4.0-10.0)
[2021-11-03 11:28] LABS: Glucose Point of Care 338 mg/dL (70-110)
--- NOTE | 2021-11-03 12:36 | P.PN_ITS ---
Subjective Subjective: Interval history: The patient is doing better today. Of the BiPAP. No respiratory distress. No pain. No fever or chills. No nausea or vomiting. Medications: Reviewed: Yes Medication Review Details: Generic Name Dose Route Start Last Admin Trade Name Katia PRN Reason Stop Dose Admin Albuterol/Ipratrop ium 3 ml 11/02/21 16:34 11/03/21 01:49 Ipratropium-Albu terol 3 Ml Neb INHALATION 3 ml Q4H.RESPIRATORY P RN Administration SHORTNESS OF YADIEL TH Amiodarone HCl 200 mg 11/03/21 09:00 11/03/21 08:22 Amiodarone 200 M g Tablet PO 200 mg DAILY ELLIE Administration Aspirin 81 mg 11/03/21 06:00 11/03/21 05:45 Aspirin 81 Mg Ec Tablet PO 81 mg QAM ELLIE Administration Atorvastatin Calci um 80 mg 11/03/21 09:00 11/03/21 08:21 Atorvastatin 40 Mg Tablet PO 80 mg DAILY ELLIE Administration Doxycycline Monohy drate 100 mg 11/02/21 18:00 11/03/21 08:21 Doxycycline 100 Mg Tablet PO 100 mg BID ELLIE Administration Protocol Furosemide 40 mg 11/03/21 09:00 11/03/21 08:22 Furosemide 40 Mg Tablet PO 40 mg DAILY ELLIE Administration Heparin Sodium (Po rcine) 5,000 unit 11/02/21 18:30 11/03/21 05:45 Heparin 5,000 Un it/Ml Inj 1 Ml SUBCUT 5,000 unit Q12H ELLIE Administration Insulin Glargine 20 unit 11/02/21 21:30 11/02/21 21:59 Insulin Glargine 100 Units/1 Ml SUBCUT 20 unit BEDTIME ELLIE Administration Insulin Human Lisp ro 0 unit 11/02/21 18:00 11/03/21 08:21 Insulin Lispro 1 00 Unit/1 Ml SUBCUT 8 unit WM&BEDTIME ELLIE Administration Protocol Methimazole 2.5 mg 11/03/21 06:00 11/03/21 05:45 Methimazole 5 Mg Tablet PO 2.5 mg QAM ELLIE Administration Methylprednisolone Sodium Succinate 60 mg 11/02/21 17:30 11/03/21 08:22 Methylprednisolo ne Sod Succ 125 Mg /2 Ml Inj IVP 60 mg Q8H ELLIE Administration Metoprolol Tartrat e 50 mg 11/02/21 21:23 11/03/21 08:22 Metoprolol Tartr ate 50 Mg Tablet PO 50 mg BID ELLIE Administration Pantoprazole Sodiu m 40 mg 11/03/21 09:00 11/03/21 08:[address] 40 Mg Tablet PO 40 mg DAILY ELLIE Administration Sacubitril/Valsart an 1 each 11/02/21 21:23 11/02/21 21:58 Sacubitril/Valsa rtan 24-26 Mg Tabl et PO 1 each BID ELLIE Administration Trazodone HCl 100 mg 11/02/21 21:23 11/02/21 21:59 Trazodone 50 Mg Tablet PO 100 mg BEDTIME ELLIE Administration Vitals/I&O/Wt Last Vital Signs Temp 98.2 F 11/03/21 08:00 Pulse 71 11/03/21 08:00 Resp 20 H 11/03/21 08:00 BP 143/74 11/03/21 08:00 Pulse Ox 96 11/03/21 08:00 11/02/21 11/03/21 11/03/21 22:59 06:59 14:59 Intake Total 540 / 540 360 / 900 360 / 360 Output Total 600 / 600 Balance 540 / 540 360 / 900 -240 / -240 Weight last 48 hrs Weight 96.162 kg Weight 96.162 kg Weight 96.162 kg Physical Exam 2 Narrative: EXAM NARRATIVE: The patient is awake alert and oriented x4. Mild distress secondary to cough and shortness of breath. Mood and affect are appropriate. Responses are adequate. Skin is warm and dry. Moist mucous membranes Eyes PERRL. 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 Neck is supple. No JVD Lungs bilateral wheezes and crackles are present. No accessory muscle use. Heart S1, S2, regular Abdomen is obese, soft, nontender, bowel sounds are present Extremities chronic venous stasis changes. Bilateral pedal edema. No cyanosis. No calf tenderness bilaterally Moves all extremities. Data : 11/03/21 07:01 11/03/21 07:01 Micro: Microbiology 11/02/21 16:50 Blood Culture - Preliminary Blood SPECIMEN COLLECTED 11/02/21 15:10 Blood Culture - Preliminary Blood SPECIMEN COLLECTED A&P Assessment and plan (1) Respiratory failure, acute: Status: Acute (2) COPD (chronic obstructive pulmonary disease): Status: Acute (3) Congestive heart failure: Status: Acute (4) Atrial fibrillation: Status: Acute (5) Nicotine addiction: Status: Acute (6) Hypoxia: Status: Acute (7) Hypertension: Status: Acute (8) Diabetes: Status: Acute Additional A&P Information 66-year-old male with past medical history of advanced COPD, home O2, diastolic dysfunction, coronary artery disease, sleep apnea, diabetes, hypertension who is presenting with increasing shortness of breath, cough, wheezing. The symptoms and findings are consistent with COPD acute exacerbation. Acute hypoxic respiratory failure secondary to COPD acute exacerbation. No evidence of pneumonia. Normal procalcitonin level.. The patient does not have leukocytosis or fever. Chest x-ray changes are probably residual from previous hospitalization for COVID-19. We will continue aggressive management with steroids, respiratory treatments. The patient received vancomycin and Zosyn in ER. We will continue doxycycline for possible bacterial bronchitis. Will continue home cardiac medications including diuresis. History of CHF. As above. Hyperkalemia. We will temporarily hold Entresto. Diabetes. I will hold his oral home medications. However I will continue Lantus. I will add insulin sliding scale. Hypertension. Well-controlled currently. We will resume home medications. Will order as needed hydralazine. DVT prophylaxis. Teds and SCDs for now. Discussed risks and benefits for using anticoagulants for DVT prophylaxis yesterday. His bleeding was more than 6 months ago. No evidence of bleeding since then. Will use heparin with close monitoring of CBC. CODE STATUS. The patient wants to be full code. Attestations Medical Necessity Statement*: Continuing inpatient care and management of the COPD acute exacerbation. Still requires high doses of IV steroids and aggressive respiratory treatments. Coding Level of Care Code Acute Online Producer for [facility] Diagnoses Respiratory failure, acute J96.00 COPD (chronic obstructive pulmonary disease) J44.9 Congestive heart failure I50.9 Atrial fibrillation I48.91 Nicotine addiction F17.200 Hypoxia R09.02 Hypertension I10 Diabetes E11.9
[2021-11-03 17:00] LABS: Glucose Point of Care 266 mg/dL (70-110)
[2021-11-03 21:53] LABS: Glucose Point of Care 209 mg/dL (70-110)
[2021-11-03] MEDS: trazodone 50 mg Tablet 100 MG PO (22:08)
[2021-11-03] MEDS: insulin glargine 100 units/1 mL 20 UNIT SUBCUT (22:08)
[2021-11-04] VITALS (8 sets, daily range): BP systolic 121–150; BP diastolic 67–72; PULSE 60–71; RESP 16–20; TEMP 36.6–36.9; O2SAT 91–94
[2021-11-04] MEDS: vancomycin 1,000 MG in sodium chloride 0.9% 250 ML 250 MG IV (01:42)
[2021-11-04] MEDS: ipratropium-albuterol 3 mL Neb INHALATION (03:45)
[2021-11-04] MEDS: methIMAzole 5 MG Tablet 2.5 MG PO (05:52)
[2021-11-04] MEDS: heparin 5,000 unit/mL INJ 1 mL 5000 UNIT SUBCUT (05:52)
[2021-11-04] MEDS: aspirin 81 mg EC Tablet PO (05:52)
[2021-11-04 06:44] LABS: Glucose Point of Care 306 mg/dL (70-110)
[2021-11-04 07:04] LABS: Basophils % 0.1 %; Hemoglobin 12.1 g/dL (11.7-16.6); Lymphocytes # 0.2 10^3/uL (0.8-4.8); Lymphocytes % 2.5 %; Mean Corpuscular Hemoglobin 28.8 pg (28.0-34.0); Mean Corpuscular Volume 92.9 fl (80-94); Monocytes # 0.2 10^3/uL (0.2-0.9); Monocytes % 2.8 %; Neutrophils # 6.29 10^3/uL (1.8-7.7); Nucleated Red Blood Cells % 0 %; Platelet Count 205 10^3/cmm (130-400); Red Cell Distribution Width 17.2 % (12.1-15.1); White Blood Count 6.7 10^3/uL (4.0-10.0)
[2021-11-04] MEDS: metoprolol tartrate 50 mg Tablet PO (07:41)
[2021-11-04] MEDS: doxycycline 100 mg Tablet PO (07:42)
[2021-11-04] MEDS: pantoprazole DR 40 mg Tablet PO (07:42)
[2021-11-04] MEDS: atorvastatin 40 mg Tablet 80 MG PO (07:43)
[2021-11-04] MEDS: FUROsemide 40 mg Tablet PO (07:44)
[2021-11-04] MEDS: insulin lispro 100 unit/1 mL SUBCUT ×2 (07:45→11:58)
[2021-11-04 08:14] LABS: Albumin Level 3.2 g/dL (3.5-5.2); Blood Urea Nitrogen 20 mg/dL (8-23); Calcium 7.8 mg/dL (8.5-10.5); Carbon Dioxide 28 mmol/L (22-29); Chloride 92 mmol/L (98-107); Glomerular Filtration Rate 97.3 mL/min (90-130); Glucose 209 mg/dL (65-115); Magnesium 1.8 mg/dL (1.7-2.3); Phosphorus 2.3 mg/dL (2.5-4.5); Sodium 131 mmol/L (136-145)
[2021-11-04 08:17] LABS: Anion Gap 16.1 (5-19); Potassium 5.1 mmol/L (3.5-5.1)
[2021-11-04] MEDS: amiodarone 200 mg Tablet PO (08:58)
[2021-11-04] MEDS: sitagliptin 100 mg Tablet 50 MG PO (10:43)
--- NOTE | 2021-11-04 11:16 | PM.DCS ---
Discharge Providers Date of Admission: 11/02/21 16:47 Date of Discharge: November 04, 2021 Attending Provider at Admission: Navin Miguel Attending Provider at Discharge: Navin Miguel Primary Care Provider: Nasreen Gomez Diagnoses at Discharge Discharge Diagnosis (1) Respiratory failure, acute: Status: Acute (2) COPD (chronic obstructive pulmonary disease): Status: Acute (3) Congestive heart failure: Status: Acute (4) Atrial fibrillation: Status: Acute Permanent problem details: (5) Nicotine addiction: Status: Acute (6) Hypoxia: Status: Acute (7) Hypertension: Status: Acute (8) Diabetes: Status: Acute Permanent problem details: Reason for Visit Reason for Visit: COPD EXACERBATION Hospital Course Hospital Course Please see patient's H&P, progress notes for more details. Discharge diagnoses and problem list 66-year-old male with past medical history of advanced COPD, home O2, diastolic dysfunction, coronary artery disease, sleep apnea, diabetes, hypertension who is presenting with increasing shortness of breath, cough, wheezing. The symptoms and findings are consistent with COPD acute exacerbation. Acute hypoxic respiratory failure secondary to COPD acute exacerbation. No evidence of pneumonia. Normal procalcitonin level.. The patient does not have leukocytosis or fever. Chest x-ray changes are probably residual from previous hospitalization for COVID-19. We observed quick improvement with the provided treatments. The patient is feeling much better today. He is breathing at his baseline. Denies any shortness of breath, chest pain, palpitations, fever or chills, nausea vomiting, diarrhea. Eager to go home. We will discharge him on careful steroid taper. We will give him a referral to see a poultry field service technician after discharge. I asked him to come back to emergency room if he develops any new or similar or worsening symptoms. He verbalized understanding and agreement. History of CHF. Stable. No evidence of exacerbation. His Entresto is on hold due to hyperkalemia. I asked him to resume it after seeing his doctors and reevaluation of his lab results in 3 days. Hyperkalemia. Resolved. We will temporarily hold Entresto and home potassium replacement. Diabetes. Continue home medications and close follow-up with the primary care physician Physical Exam Narrative: EXAM NARRATIVE: The patient is awake alert and oriented x4. Mood and affect are appropriate. Responses are adequate. No distress. Reports feeling much better. Denies shortness of breath with supplemental oxygen. The cough is much improved. No fever chills. No chest pain. Skin is warm and dry. Moist mucous membranes Eyes PERRL. 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 Neck is supple. No JVD Lungs decreased breath sounds bilaterally. No distress. No accessory muscle use. No wheezes or crackles today Heart S1, S2, regular Abdomen is obese, soft, nontender, bowel sounds are present Extremities chronic venous stasis changes. Bilateral pedal edema. No cyanosis. No calf tenderness bilaterally Moves all extremities. Discharge Data Data Completed and Pending: Completed Studies During Hospitalization Category Date Time Status XR chest 1[place] [id number] Stat Exams 11/02/21 15:07 Completed Pending at discharge Category Date Time Status Blood Culture Sta t Lab 11/02/21 16:50 Results Complete Blood Co unt w/Auto AM LABS Lab 11/05/21 04:00 Ordered Magnesium AM LABS Lab 11/05/21 04:00 Ordered Renal Function Pa ko AM LABS Lab 11/05/21 04:00 Ordered Labs from last 24 hours 11/04/21 11/04/21 11/04/21 07:48 06:25 06:11 WBC RBC Hgb Hct MCV MCH MCHC RDW Plt Count MPV Neut % (Auto) Lymph % (Auto) Mcnairy % (Auto) Eos % (Auto) Baso % (Auto) Neut # (Auto) Lymph # (Auto) Mcnairy # (Auto) Eos # (Auto) Baso # (Auto) Nucleated RBC % (a uto) Nucleated RBCs # Sodium 131 L Cancelled Potassium 5.1 Cancelled Chloride 92 L Cancelled Carbon Dioxide 28 Cancelled Anion Gap 16.1 Cancelled BUN 20 Cancelled Creatinine 0.8 Cancelled GFR Calculation 97.3 Cancelled Glucose 209 H Cancelled POC Glucose 306 H Calcium 7.8 L Cancelled Phosphorus 2.3 L Cancelled Magnesium 1.8 Albumin 3.2 L Cancelled 11/04/21 11/04/21 11/03/21 06:11 06:11 21:27 WBC 6.7 RBC 4.20 Hgb 12.1 Hct 39.0 L MCV 92.9 MCH 28.8 MCHC 31.0 RDW 17.2 H Plt Count 205 MPV 11.0 H Neut % (Auto) 94.0 Lymph % (Auto) 2.5 Mcnairy % (Auto) 2.8 Eos % (Auto) 0.0 Baso % (Auto) 0.1 Neut # (Auto) 6.29 Lymph # (Auto) 0.2 L Mcnairy # (Auto) 0.2 Eos # (Auto) 0.0 Baso # (Auto) 0.0 Nucleated RBC % (a uto) 0 Nucleated RBCs # 0.0 Sodium Potassium Chloride Carbon Dioxide Anion Gap BUN Creatinine GFR Calculation Glucose POC Glucose 209 H Calcium Phosphorus Magnesium Cancelled Albumin 11/03/21 11/03/21 16:57 11:19 WBC RBC Hgb Hct MCV MCH MCHC RDW Plt Count MPV Neut % (Auto) Lymph % (Auto) [place]nairy % (Auto) Eos % (Auto) Baso % (Auto) Neut # (Auto) Lymph # (Auto) [place] # (Auto) Eos # (Auto) Baso # (Auto) Nucleated RBC % (a uto) Nucleated RBCs # Sodium Potassium Chloride Carbon Dioxide Anion Gap BUN Creatinine GFR Calculation Glucose POC Glucose 266 H 338 H Calcium Phosphorus Magnesium Albumin Vitals: Last Vital Signs Temp 98.4 F 11/04/21 07:42 Pulse 62 11/04/21 07:42 Resp 17 11/04/21 07:42 BP 147/71 11/04/21 07:42 Pulse Ox 93 11/04/21 07:42 Discharge Plan Discharge Patient Disposition: Home Health Service Condition: Stable Prescriptions: New doxycycline monohydrate 100 mg Tablet 100 mg PO BID Qty: 10 RF: 0 prednisone 20 mg tablet See Rx Instructions .ROUTE .COMPLEX Qty: 60 RF: 0 Continued Pacerone 200 mg tablet 200 mg PO DAILY RF: 0 Lantus Solostar U-100 Insulin 100 unit/mL (3 mL) insulin pen 20 unit SUBCUT BEDTIME RF: 0 formoterol fumarate [Perforomist] 20 mcg/2 mL solution for nebulization 2 ml INHALATION BID Qty: 120 RF: 2 Combivent Respimat 20-100 mcg/actuation mist 1 puff inhalation Q6H Qty: 4 RF: 0 Yupelri 175 mcg/3 mL solution for nebulization 175 mcg inhalation DAILY Qty: 90 RF: 11 Vitamin B12 Gummies 1 - 2 tab PO DAILY RF: 0 Farxiga 10 mg tablet 10 mg PO QAM RF: 0 aspirin 81 mg tablet,delayed release (DR/EC) 81 mg PO QAM RF: 0 benzonatate 100 mg Capsule 100 mg PO TID PRN (Reason: Cough) Qty: 14 RF: 0 metoprolol tartrate 50 mg tablet 50 mg PO BID RF: 0 rosuvastatin 20 mg tablet 10 mg PO DAILY RF: 0 insulin aspart U-100 [Novolog Flexpen U-100 Insulin] 100 unit/mL (3 mL) insulin pen See Rx Instructions .ROUTE .COMPLEX 30 Days Qty: 15 RF: 0 furosemide 40 mg tablet 40 mg PO DAILY Qty: 0 RF: 0 albuterol sulfate 90 mcg/actuation HFA aerosol inhaler 1 inh inhalation Q6H PRN (Reason: shortness of breath or wheezing) Qty: 8.5 RF: 0 trazodone 50 mg tablet 100 mg PO BEDTIME RF: 0 methimazole 5 mg tablet 2.5 mg PO QAM RF: 0 Januvia 50 mg tablet 50 mg PO QAM RF: 0 omeprazole 40 mg capsule,delayed release(DR/EC) 40 mg PO QAM RF: 0 Jardiance 25 mg tablet 25 mg PO QAM RF: 0 Humalog KwikPen Insulin 100 unit/mL insulin pen See Rx Instructions .ROUTE .COMPLEX MDD see pharmacy comment RF: 0 Held Entresto 24-26 mg tablet 1 tab PO BID RF: 0 Hold Instructions: Resume on 11/12/21. Please speak with your heart doctor, and your primary care physician before resuming this medication. I was concerned about elevated potassium level. Your potassium level and kidney function will need to be rechecked before resuming this medication. Discontinued potassium chloride 20 mEq tablet extended release 20 meq PO DAILY Qty: 0 RF: 0 Discharge Orders: Discharge Order (Routine); Ordered 11/04/21 Ordered By: Navin Miguel Other Ambulatory Orders: Basic Metabolic Panel (Routine) Timeframe: 3 Days Facility: [facility] - Location: Lab - Main Lab Ordered By: Navin Miguel Referrals: [id number] [Outside] Nasreen Gomez PA [Primary Care Provider] - 11/15/21 9:30 am Nick Corley MD [Physician] - 4-7 days Discharge Diet: Cardiac Discharge Activity: Increase activity as tolerated Patient Instructions: How to Stop Smoking (DC), Cigarette Smoking and Your Health (GEN), COPD (Chronic Obstructive Pulmonary Disease) (DC), Opioid Safety Activity Restrictions/Additional Instructions: Please come back to emergency room if you develop any worsening shortness of breath, cough, wheezing, or any other new complaints. Please follow-up with the poultry field service technician and your primary care physician. Your blood test results will need to be rechecked soon in order to adjust your medications. Some changes were done due to abnormal lab results. Please do not start smoking again. Discharge Attestations Time Spent in Discharge Care*: greater than 30 min Status at Discharge: Cognitive status at discharge: cognitively intact, Behavioral status at discharge: cooperative, Quality Metrics Clinical Quality Measures During this hospital stay, did patient experience: None Coding Level of Care Code Acute Chg FW DC note Diagnoses Respiratory failure, acute J96.00 COPD (chronic obstructive pulmonary disease) J44.9 Congestive heart failure I50.9 Atrial fibrillation I48.91 Nicotine addiction F17.200 Hypoxia R09.02 Hypertension I10 Diabetes E11.9
[2021-11-04 11:35] LABS: Glucose Point of Care 186 mg/dL (70-110)
--- NOTE | 2021-11-04 13:05 | PC.NURSE ---
Discharged discussed with patient and understanding acknowleged. Patient wheeled down in wheel chair to private vehicle. Girlfriend here to pickling operator patient. Patient had own oxygen.
== END 2021-11-04 13:00 | disposition home health service (06) | DRG 190 ==
LOC: ER 17:11 → MEDSURG 19:44
PROVIDERS: Admitting Provider Internal Medicine; Emergency Provider Family Medicine; PCP Physician Assistant; Visit Provider Internal Medicine
DX: J44.1 Chronic obstructive pulmonary disease with (acute) exacerbation (principal); J96.21 Acute and chronic respiratory failure with hypoxia; I13.0 Hypertensive heart and chronic kidney disease with heart failure and stage 1 through stage 4 chronic kidney disease, or unspecified chronic kidney disease; Z99.81 Dependence on supplemental oxygen; I50.9 Heart failure, unspecified; N18.2 Chronic kidney disease, stage 2 (mild); E11.22 Type 2 diabetes mellitus with diabetic chronic kidney disease; E11.65 Type 2 diabetes mellitus with hyperglycemia; I48.91 Unspecified atrial fibrillation; Z86.16 Personal history of COVID-19; I25.10 Atherosclerotic heart disease of native coronary artery without angina pectoris; I25.2 Old myocardial infarction; I35.0 Nonrheumatic aortic (valve) stenosis; F17.210 Nicotine dependence, cigarettes, uncomplicated; G47.33 Obstructive sleep apnea (adult) (pediatric); E05.90 Thyrotoxicosis, unspecified without thyrotoxic crisis or storm; E78.5 Hyperlipidemia, unspecified; E87.5 Hyperkalemia; Z79.4 Long term (current) use of insulin; Z79.82 Long term (current) use of aspirin; Z79.51 Long term (current) use of inhaled steroids
CPT/HCPCS: 36415; 36416; 36600; 71045; 80048; 80051; 80053; 80069; 82330; 82550; 82805; 82962; 83605; 83735; 83880; 84100; 84145; 84484; 85025; 87040; 87205; 93005; 94640; 94660; 96365; 96367; 96372; 99291; J1644; J1815 ×2; J2543; J2930; J3370; J7050

== ENCOUNTER 2021-11-30 13:04 | Observation (INO) | payer MEDICARE, MEDICAID, SELFPAY ==
[2021-11-30] VITALS (15 sets, daily range): BP systolic 106–144; BP diastolic 63–94; PULSE 69–147; RESP 14–28; TEMP 37; O2SAT 91–96; BMI 33.3
--- NOTE | 2021-11-30 13:20 | XR_ITS ---
WS: [id number] PORTABLE CHEST HISTORY: sob COMPARISON: 11/02/2021 Scattered irregular opacifications in the mid and lower lung [place] with slight improvement since the prior study. Some of these areas are pneumonitis and others are atelectasis. No pleural effusion or pneumothorax. Cardiac size: Normal. Mediastinum/Aorta: Normal mediastinum. No osseous abnormality seen. XR/XR chest 1V portable [id number] IMPRESSION: Mild improvement in the hazy opacifications and atelectasis.
--- NOTE | 2021-11-30 14:09 | ED_ITS ---
HPI - SOB/Dyspnea General: Chief Complaint: ER Hold Stated Complaint: SOB Time Seen by Provider: 11/30/21 14:08 History of Present Illness: HPI Narrative: 66-year-old male presents emergency room with complaints of shortness of breath and difficulty with bleeding as well as rapid heart rate. EMS turned his oxygen up to 5 to 6 L by nasal cannula on arrival here his sats are 98 to 99% he is in atrial fibrillation rapid ventricular spots. He denies any chest pain has had severe difficulty breathing he denies any productive cough. He had COVID a few months ago. He has been progressively worsening over the last couple of days and markedly worse this afternoon. Patient received bronchodilators nebulized in route had no improvement. MD elicited complaint: shortness of breath and cough Pertinent past history: COPD and congestive heart failure Onset (ago): hour(s) Timing: constant Severity: severe Exacerbating factors: exertion, movement, coughing and talking Relieving factors: oxygen and rest Associated symptoms: Reports chest congestion and cough; Deny abdominal pain, chest pain, diaphoresis, dizziness, extremity pain, fever(s), hemoptysis, lightheadedness, myalgias, nausea, orthopnea, palpitations, paresthesias, polydipsia, polyuria, rash, sense of impending doom, syncope or vomiting Treatment prior to arrival: oxygen and bronchodilator Related Data: Home oxygen amount: 3 liters Review of Systems Const: Denies: fever(s) or diaphoresis ENMT: Denies: throat pain, ear or mastoid pain, nasal discharge or nasal congestion Card: Reports: irregular heart rhythm, edema and swelling of feet/ankles; Denies: chest pain, palpitations, lightheadedness, syncope or orthopnea Resp: Reports: chest congestion; Denies: hemoptysis GI: Denies: abdominal pain, nausea or vomiting : Denies: flank pain, dysuria, urinary frequency or urinary urgency Musc: Denies: extremity pain Skin/Breast: Denies: rash or pruritus Neuro: Denies: dizziness Endo: Denies: polyuria or polydipsia PFSH ED PFSH: Medical History Acute exacerbation of chronic obstructive airways disease Acute hypercapnic respiratory failure Atrial fibrillation Atrial fibrillation with rapid ventricular response CAD (coronary artery disease) Chest pain CHF (congestive heart failure) Chronic kidney disease, stage II (mild) Chronic respiratory failure with hypoxia Congestive heart failure COPD (chronic obstructive pulmonary disease) Cor pulmonale Diabetes Elevated troponin I level Heart attack Hypertension Hypoxia Moderate aortic stenosis Nicotine addiction DAYNE (obstructive sleep apnea) Pneumonia Surgical History H/O hernia repair Family History Mother Lung disease COPD Sister Cancer Social History Smoking and tobacco status: current some day smoker cigarettes Years cigarettes smoked: 47 [ Other cigarette details: Hx of 2PPD x 47 Years] Quit status (tobacco): considering quitting Second hand smoke exposure: Yes Smoking risk assessment/counseling performed?: Yes Alcohol intake: current Alcohol intake frequency: holidays/special occasions o nly Desire information about alcohol rehabilitation?: No Counseling given: No Desire information about substance/drug rehabilitation?: No Counseling given: No Caregiver/support person: Yes Lives independently: Yes Household members: none Marital status: Single Current occupational status: disabled and 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 [facility] History of recent travel: No Current gender identity: Male Physical Exam Const: GENERAL APPEARANCE: cooperative ORIENTATION/CONSCIOUSNESS: Yes awake, Yes oriented to person, Yes oriented to place and Yes oriented to time HENMT: COMMON NORMALS: normocephalic, atraumatic and hearing grossly normal bilaterally HEAD & SCALP: normocephalic and atraumatic Resp: EFFORT & INSPECTION: Yes pursed lip breathing AUSCULTATION: wheezes Cardio: RATE: tachycardic RHYTHM: abnormal rhythm irregularly irregular GI: COMMON NORMALS: Soft to palpation and No hepatosplenomegaly present AUSCULTATION: Yes normoactive bowel sounds PALPATION: Yes Soft to palpation, No Tenderness to palpation present (GI), No Guarding due to palpation present (GI) and Yes No hepatosplenomegaly present Extremity: GENERAL: Yes edema Neuro: SENSORIUM/ORIENTATION: Yes oriented to person, Yes oriented to place and Yes oriented to time Skin: COMMON NORMALS: no rashes or lesions noted GENERAL SKIN EXAM: no rashes or lesions noted Course Vital Signs: Vital signs: Vital Signs Temperature 98.6 F 11/30/21 14:23 Pulse Rate 55 L 12/01/21 05:50 Respiratory Rate 16 12/01/21 05:50 Blood Pressure 116/63 12/01/21 05:50 Pulse Oximetry 92 12/01/21 05:50 MDM - SOB/Dyspnea MDM Narrative Medical decision making narrative: Was retaining CO2. Oxygen decreased he was given Cardizem bolus and rhythm delay in getting the drip started so he did not really respond very well which at the drip off after did not titrate up to 15 he had no response we rebolused him with another 20 Cardizem restarted the drip and he began to show some control. He will be admitted for rate control and hypercapnic respiratory failure. Discussed with hospitalist orders written Medical Records Attestation: I reviewed the patient's medical records. Lab Data Attestation: I reviewed the patient's lab results. Result diagrams: 12/01/21 03:58 12/01/21 03:58 Labs: Radiology Impressions Chest X-Ray 11/30/21 13:20 IMPRESSION: Mild improvement in the hazy opacifications and atelectasis. Laboratory Results WBC 5.0 10^3/uL (4.0-10.0) 11/30/21 14:20 RBC 4.51 10^6/uL (4.1-5.3) 11/30/21 14:20 Hgb 13.0 g/dL (11.7-16.6) 11/30/21 14:20 Hct 42.3 % (42.0-52.0) 11/30/21 14:20 MCV 93.8 fl (80-94) 11/30/21 14:20 MCH 28.8 pg (28.0-34.0) 11/30/21 14:20 MCHC 30.7 g/dL (30.0-36.0) 11/30/21 14:20 RDW 17.4 % (12.1-15.1) H 11/30/21 14:20 Plt Count 169 10^3/cmm (130-400) 11/30/21 14:20 MPV 10.8 fL (7.4-10.4) H 11/30/21 14:20 Neut % (Auto) 76.9 % 11/30/21 14:20 Lymph % (Auto) 6.0 % 11/30/21 14:20 [place] % (Auto) 13.1 % 11/30/21 14:20 Eos % (Auto) 2.4 % 11/30/21 14:20 Baso % (Auto) 1.0 % 11/30/21 14:20 Neut # (Auto) 3.83 10^3/uL (1.8-7.7) 11/30/21 14:20 Lymph # (Auto) 0.3 10^3/uL (0.8-4.8) L 11/30/21 14:20 [place]oke # (Auto) 0.7 10^3/uL (0.2-0.9) 11/30/21 14:20 Eos # (Auto) 0.1 10^3/uL (0.0-0.8) 11/30/21 14:20 Baso # (Auto) 0.1 10^3/uL (0.0-0.1) 11/30/21 14:20 Nucleated RBC % (auto) 0 % 11/30/21 14:20 Nucleated RBCs # 0.0 /100WBC 11/30/21 14:20 Specimen Type Arterial 11/30/21 17:49 Sample Site Radial, right 11/30/21 17:49 ABG pH 7.32 (7.35-7.45) L 11/30/21 17:49 ABG pCO2 90.1 mmHg (35-45) H* 11/30/21 17:49 ABG pO2 55.7 mmHg (80.0-100.0) L 11/30/21 17:49 ABG HCO3 46.7 mmol/L (22-26) H 11/30/21 17:49 ABG O2 Saturation 88.0 11/30/21 17:49 ABG Base Excess 16.0 mmol/L (-2.0-2.0) H 11/30/21 17:49 Gee Test Pos 11/30/21 17:49 A-a O2 Gradient Not Reportable 11/30/21 17:49 Hematocrit 41.8 % (42-52) L 11/30/21 17:49 Hgb O2 Saturation 83.8 % (95-100) L 11/30/21 17:49 Carboxyhemoglobin 3.8 %THgb (0.4-20.1) 11/30/21 17:49 Methemoglobin 1.1 % (0.4-1.5) 11/30/21 17:49 Total Hemoglobin 13.6 g/dL (14-18) L 11/30/21 17:49 Sodium 140.0 mmol/L (131-143) 11/30/21 17:49 Potassium 3.9 mmol/L (3.5-5.0) 11/30/21 17:49 Glucose 191.0 mg/dL (70-115) H 11/30/21 17:49 Ionized Calcium 1.1 mmol/L (1.1-1.4) 11/30/21 17:49 O2 Delivery Device Nc 11/30/21 17:49 O2 Liters/Min 6.0 % 11/30/21 17:49 Field Crop Harvest Worker ID [place] 11/30/21 17:49 Sodium 136 mmol/L (136-145) 11/30/21 14:20 Potassium 3.8 mmol/L (3.5-5.1) 11/30/21 14:20 Chloride 88 mmol/L (98-107) L 11/30/21 14:20 Carbon Dioxide 39 mmol/L (22-29) H 11/30/21 14:20 Anion Gap 12.8 (5-19) 11/30/21 14:20 BUN 17 mg/dL (8-23) 11/30/21 14:20 Creatinine 0.8 mg/dL (0.7-1.2) 11/30/21 14:20 GFR Calculation 97.3 mL/min (90-130) 11/30/21 14:20 Glucose 142 mg/dL (65-115) H 11/30/21 14:20 POC Glucose 182 mg/dL (70-110) H 11/30/21 17:36 Calculated Osmolality 286 mOsm/kg (285-295) 11/30/21 14:20 Calcium 8.3 mg/dL (8.5-10.5) L 11/30/21 14:20 Total Bilirubin 0.2 mg/dL (0.15-1.2) 11/30/21 14:20 AST 12 U/L (0-40) 11/30/21 14:20 ALT 12 U/L (0-41) 11/30/21 14:20 Alkaline Phosphatase 87 IU/L (40-130) 11/30/21 14:20 Troponin T Baseline 41 ng/L (0-15) H 11/30/21 14:20 Troponin T 120 Minute 44.20 ng/L (0-15) H 11/30/21 16:41 Delta Troponin T 3.20 ABS# (0-10) 11/30/21 16:41 NT-Pro-B Natriuret Pep 300 pg/mL (0-125) H 11/30/21 14:20 NT-Pro-B Natriuret Pep Cancelled 11/30/21 14:20 Total Protein 6.1 g/dL (6.6-8.7) L 11/30/21 14:20 Albumin 3.8 g/dL (3.5-5.2) 11/30/21 14:20 Globulin 2.3 g/dL (1.3-4.6) 11/30/21 14:20 Critical Care Time Critical Care Time: Critical Care Time: Yes Total Critical Care Time: 45 Attestation: The high probability of a clinically significant, sudden or life threatening deterioration of the patient's cardiovascular/respiratory system(s) required my full and direct attention, intervention and personal management. The critical care time is as shown. This time is in addition to time spent performing any reported procedures but includes the following: [x] Data and vital sign review and interpretation [x] Patient assessment, examination and intervention [x] Documentation [x] Medication orders and management Discharge Plan Discharge Patient Disposition: Admitted As Inpatient Admit Provider: Jany Eugene Clinical Impression: Atrial fibrillation, COPD (chronic obstructive pulmonary disease), Coronary artery disease due to type 2 diabetes mellitus, Hypertension, Uncontrolled type 2 diabetes mellitus, Congestive heart failure, Acute hypercapnic respiratory failure Condition: Stable Coding Level of Care Code ED Investment Advisor for [place]
[2021-11-30 14:32] LABS: Basophils # 0.1 10^3/uL (0.0-0.1); Eosinophils # 0.1 10^3/uL (0.0-0.8); Eosinophils % 2.4 %; Hematocrit 42.3 % (42.0-52.0); Lymphocytes # 0.3 10^3/uL (0.8-4.8); Mean Corpuscular HGB Conc 30.7 g/dL (30.0-36.0); Mean Corpuscular Hemoglobin 28.8 pg (28.0-34.0); Mean Corpuscular Volume 93.8 fl (80-94); Mean Platelet Volume 10.8 fL (7.4-10.4); Monocytes # 0.7 10^3/uL (0.2-0.9); Monocytes % 13.1 %; Neutrophils # 3.83 10^3/uL (1.8-7.7); Neutrophils % 76.9 %; Nucleated Red Blood Cells % 0 %; Platelet Count 169 10^3/cmm (130-400); Red Blood Count 4.51 10^6/uL (4.1-5.3); Red Cell Distribution Width 17.4 % (12.1-15.1)
[2021-11-30] MEDS: FUROsemide 10 mg/mL SDV 10mL 60 MG IVP (14:54)
[2021-11-30 14:59] LABS: Troponin(5th) Baseline 41 ng/L (0-15)
[2021-11-30 15:06] LABS: Alanine Aminotransferase 12 U/L (0-41); Albumin Level 3.8 g/dL (3.5-5.2); Alkaline Phosphatase 87 IU/L (40-130); Anion Gap 12.8 (5-19); Aspartate Amino Transferase 12 U/L (0-40); Blood Urea Nitrogen 17 mg/dL (8-23); Calcium 8.3 mg/dL (8.5-10.5); Carbon Dioxide 39 mmol/L (22-29); Chloride 88 mmol/L (98-107); Globulin 2.3 g/dL (1.3-4.6); Glomerular Filtration Rate 97.3 mL/min (90-130); Glucose 142 mg/dL (65-115); NT Pro B Type Natriuretic Pept 300 pg/mL (0-125); Osmolality Calculated 286 mOsm/kg (285-295); Potassium 3.8 mmol/L (3.5-5.1); Sodium 136 mmol/L (136-145); Total Bilirubin 0.2 mg/dL (0.15-1.2); Total Protein 6.1 g/dL (6.6-8.7)
[2021-11-30 17:39] LABS: Glucose Point of Care 182 mg/dL (70-110)
[2021-11-30 17:58] LABS: ABG PH Result 7.32 (7.35-7.45); Arterial Blood Gas Hematocrit 41.8 % (42-52); Blood Gas Allen Test Pos; Blood Gas Operator Identificat WALCI; Blood Gas Sample Site Radial, right; Blood Gas Sample Type Arterial; Carboxyhemoglobin 3.8 %THgb (0.4-20.1); HCO3 ABG 46.7 mmol/L (22-26); HGB O2 Sat 83.8 % (95-100); Ionized Calcium Level - ABG 1.1 mmol/L (1.1-1.4); Methemoglobin 1.1 % (0.4-1.5); Oxygen Device NC; PO2 ABG 55.7 mmHg (80.0-100.0); Potassium Level - ABG 3.9 mmol/L (3.5-5.0); Total Hemoglobin 13.6 g/dL (14-18)
[2021-11-30 18:02] LABS: ABG PCO2 90.1 mmHg (35-45)
--- NOTE | 2021-11-30 18:44 | P.HP_ITS ---
Providers/Chief Complaint Admitting Physician: Jany Eugene MD Primary Care Provider: Nasreen Gomez Chief Complaint: SOB History of Present Illness Nagi Cuellar is a 66 year old male with past medical history of advanced COPD, home O2, diastolic dysfunction, coronary artery disease, sleep apnea, diabetes, hypertension, COVID-24 September 2021, ?atrial fibrillation not on anticoagulation due to massive GI bleeding in the past. He is presenting to the hospital today with chief complaints of palpitations, shortness of breath. Found to have A. fib with RVR with heart rate in the 140s and started on Cardizem drip. Denies any chest pain. EKG without acute ST-T wave changes. Mildly elevated troponin without significant delta at 2 hours. Review of Systems General: Reports: 10 or more systems reviewed and unremarkable except in HPI and below Const: Denies: fever(s), chills or body aches Eyes: Denies: change in vision, blurry vision or photophobia ENMT: Reports: hoarseness; Denies: throat pain, enlarged tonsils, odynophagia or nasal congestion Card: Denies: chest pain, palpitations, irregular heart rhythm, edema, swelling of feet/ankles, lightheadedness, pre-syncope, dyspnea on exertion or orthopnea Resp: Denies: dyspnea, productive cough, non-productive cough, wheezing, stridor, pain on inspiration, change in phlegm color, hemoptysis or chest congestion GI: Denies: abdominal pain, nausea, vomiting, hematemesis, coffee ground emesis, dysphagia, heartburn, diarrhea, constipation, GI cramping, change in stool character, hematochezia or melena : Denies: flank pain, dysuria, urinary frequency, urinary urgency, urinary hesitancy or hematuria Musc: Denies: neck pain, back pain, extremity pain, joint swelling, joint warmth or deformity Neuro: Denies: headache(s), numbness in extremities, weakness in extremities, sensory changes, difficulty walking, frequent falls, dizziness, vertigo, behavioral changes, Slurred speech present or seizure-like activity Psych: Denies: anxiety, depression, suicidal ideation or homicidal ideation Endo: Denies: polyuria, polydipsia, tired all the time, cold intolerance or hot flashes Dov/Lymph: Denies: easy bruising or easy bleeding Medications/Allergies Home Medications Medication Instructions Recorded Confirmed Last Taken Type methimazole 5 mg tablet 2.5 mg PO QAM 01/15/21 11/02/21 11/02/21 History empagliflozin 25 mg tablet 25 mg PO QAM 07/18/21 11/02/21 11/02/21 History (Jardiance) omeprazole 40 mg capsule,delayed 40 mg PO QAM 07/18/21 11/02/21 11/02/21 History release sitagliptin 50 mg tablet (Januvia) 50 mg PO QAM tab 07/23/21 11/02/21 11/02/21 History Vitamin B12 Gummies 1 - 2 tab PO DAILY 08/02/21 11/02/21 11/02/21 History dapagliflozin 10 mg tablet 10 mg PO QAM 08/02/21 11/02/21 11/02/21 History (Farxiga) amiodarone 200 mg tablet (Pacerone) 200 mg PO DAILY tab 08/10/21 11/02/21 11/02/21 History aspirin 81 mg tablet,delayed 81 mg PO QAM 08/12/21 11/02/21 11/02/21 History release benzonatate 100 mg capsule 100 mg PO TID PRN #14 cap 08/17/21 11/02/21 Unknown Rx insulin glargine 100 unit/mL (3 20 unit SUBCUT BEDTIME ml 09/21/21 11/02/21 11/01/21 History mL) subcutaneous pen (Lantus Solostar U-100 Insulin) trazodone 50 mg tablet 100 mg PO BEDTIME tab 09/21/21 11/02/21 11/01/21 History metoprolol tartrate 50 mg tablet 50 mg PO BID 10/01/21 11/02/21 11/02/21 History rosuvastatin 20 mg tablet 10 mg PO DAILY 10/01/21 11/02/21 11/01/21 History sacubitril 24 mg-valsartan 26 mg 1 tab PO BID 10/01/21 11/02/21 11/02/21 History tablet (Entresto) albuterol sulfate 90 mcg/actuation 1 inh INHALATION Q6H PRN #8.5 g 10/08/21 11/02/21 Unknown Rx aerosol inhaler furosemide 40 mg tablet 40 mg PO DAILY #0 tab 10/08/21 11/02/21 11/02/21 Rx formoterol fumarate 20 mcg/2 mL 2 ml INHALATION BID #120 ml 10/15/21 11/02/21 11/02/21 Rx solution for nebulization (Perforomist) ipratropium 20 mcg-albuterol 100 1 puff INHALATION Q6H #4 g 10/15/21 11/02/21 11/02/21 Rx mcg/actuation mist for inhalation (Combivent Respimat) revefenacin 175 mcg/3 mL solution 175 mcg (3 mL) INHALATION DAILY 10/15/21 11/02/21 11/02/21 Rx for nebulization (Yupelri) #90 ml insulin lispro 100 unit/mL See Rx Instructions .ROUTE 11/02/21 11/02/21 Unknown History subcutaneous pen (Humalog KwikPen .COMPLEX MDD see pharmacy comment (U-100) Insulin) doxycycline monohydrate 100 mg 100 mg PO BID #10 tab 11/04/21 Unknown Rx tablet prednisone 20 mg tablet See Rx Instructions .ROUTE 11/04/21 Unknown Rx .COMPLEX #60 tab Allergies Allergy/AdvReac Type Severity Reaction Status Date / Time No Known Allergies Allergy Verified 11/02/21 15:01 PFSH Acute PFSH: Medical History Acute exacerbation of chronic obstructive airways disease Acute hypercapnic respiratory failure Atrial fibrillation Atrial fibrillation with rapid ventricular response CAD (coronary artery disease) Chest pain CHF (congestive heart failure) Chronic kidney disease, stage II (mild) Chronic respiratory failure with hypoxia Congestive heart failure COPD (chronic obstructive pulmonary disease) Cor pulmonale Diabetes Elevated troponin I level Heart attack Hypertension Hypoxia Moderate aortic stenosis Nicotine addiction DAYNE (obstructive sleep apnea) Pneumonia Surgical History H/O hernia repair Family History Mother Lung disease COPD Sister Cancer Social History Smoking and tobacco status: current some day smoker cigarettes Years cigarettes smoked: 47 [ Other cigarette details: Hx of 2PPD x 47 Years] Quit status (tobacco): considering quitting Second hand smoke exposure: Yes Smoking risk assessment/counseling performed?: Yes Alcohol intake: current Alcohol intake frequency: holidays/special occasions only Desire information about alcohol rehabilitation?: No Counseling given: No Desire information about substance/drug rehabilitation?: No Counseling given: No Caregiver/support person: Yes Lives independently: Yes Household members: none Marital status: Single Current occupational status: disabled and 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 History of recent travel: No Current gender identity: Male Vitals/I&O/Wt Last Vital Signs Temp 98.6 F 11/30/21 14:23 Pulse 142 H 11/30/21 18:26 Resp 16 11/30/21 14:57 BP 133/82 11/30/21 18:04 Pulse Ox 95 11/30/21 18:26 11/30/21 11/30/21 11/30/21 06:59 14:59 22:59 Intake Total 17.583 / 17.583 Balance 17.583 / 17.583 Weight last 48 hrs Weight 90.718 kg Physical Exam Narrative: EXAM NARRATIVE: GEN: Awake, alert and oriented, no acute distress CVS: S1S2 N, tachycardic RS: CTA B/L Abd: Soft, nt/nd , bs+ EARLY CHILDHOOD SPECIAL EDUCATOR: no focal neuro deficits Data : 11/30/21 14:20 11/30/21 14:20 Other data: Radiology Impressions Chest X-Ray 11/30/21 13:20 IMPRESSION: Mild improvement in the hazy opacifications and atelectasis. Laboratory Results WBC 5.0 10^3/uL (4.0-10.0) 11/30/21 14:20 RBC 4.51 10^6/uL (4.1-5.3) 11/30/21 14:20 Hgb 13.0 g/dL (11.7-16.6) 11/30/21 14:20 Hct 42.3 % (42.0-52.0) 11/30/21 14:20 MCV 93.8 fl (80-94) 11/30/21 14:20 MCH 28.8 pg (28.0-34.0) 11/30/21 14:20 MCHC 30.7 g/dL (30.0-36.0) 11/30/21 14:20 RDW 17.4 % (12.1-15.1) H 11/30/21 14:20 Plt Count 169 10^3/cmm (130-400) 11/30/21 14:20 MPV 10.8 fL (7.4-10.4) H 11/30/21 14:20 Neut % (Auto) 76.9 % 11/30/21 14:20 Lymph % (Auto) 6.0 % 11/30/21 14:20 Mora % (Auto) 13.1 % 11/30/21 14:20 Eos % (Auto) 2.4 % 11/30/21 14:20 Baso % (Auto) 1.0 % 11/30/21 14:20 Neut # (Auto) 3.83 10^3/uL (1.8-7.7) 11/30/21 14:20 Lymph # (Auto) 0.3 10^3/uL (0.8-4.8) L 11/30/21 14:20 Mora # (Auto) 0.7 10^3/uL (0.2-0.9) 11/30/21 14:20 Eos # (Auto) 0.1 10^3/uL (0.0-0.8) 11/30/21 14:20 Baso # (Auto) 0.1 10^3/uL (0.0-0.1) 11/30/21 14:20 Nucleated RBC % (auto) 0 % 11/30/21 14: Nucleated RBCs # 0.0 /100WBC 11/30/21 14:20 Specimen Type Arterial 11/30/21 17:49 Sample Site Radial, right 11/30/21 17:49 ABG pH 7.32 (7.35-7.45) L 11/30/21 17:49 ABG pCO2 90.1 mmHg (35-45) H* 11/30/21 17:49 ABG pO2 55.7 mmHg (80.0-100.0) L 11/30/21 17:49 ABG HCO3 46.7 mmol/L (22-26) H 11/30/21 17:49 ABG O2 Saturation 88.0 11/30/21 17:49 ABG Base Excess 16.0 mmol/L (-2.0-2.0) H 11/30/21 17:49 Gee Test Pos 11/30/21 17:49 Hematocrit 41.8 % (42-52) L 11/30/21 17:49 Hgb O2 Saturation 83.8 % (95-100) L 11/30/21 17:49 Carboxyhemoglobin 3.8 %THgb (0.4-20.1) 11/30/21 17:49 Methemoglobin 1.1 % (0.4-1.5) 11/30/21 17:49 Total Hemoglobin 13.6 g/dL (14-18) L 11/30/21 17:49 Sodium 140.0 mmol/L (131-143) 11/30/21 17:49 Potassium 3.9 mmol/L (3.5-5.0) 11/30/21 17:49 Glucose 191.0 mg/dL (70-115) H 11/30/21 17:49 Ionized Calcium 1.1 mmol/L (1.1-1.4) 11/30/21 17:49 O2 Delivery Device Nc 11/30/21 17:49 O2 Liters/Min 6.0 % 11/30/21 17:49 Rn Radiation Oncology ID Walci 11/30/21 17:49 Sodium 136 mmol/L (136-145) 11/30/21 14:20 Potassium 3.8 mmol/L (3.5-5.1) 11/30/21 14:20 Chloride 88 mmol/L (98-107) L 11/30/21 14:20 Carbon Dioxide 39 mmol/L (22-29) H 11/30/21 14:20 Anion Gap 12.8 (5-19) 11/30/21 14:20 BUN 17 mg/dL (8-23) 11/30/21 14:20 Creatinine 0.8 mg/dL (0.7-1.2) 11/30/21 14:20 GFR Calculation 97.3 mL/min (90-130) 11/30/21 14:20 Glucose 142 mg/dL (65-115) H 11/30/21 14:20 POC Glucose 182 mg/dL (70-110) H 11/30/21 17:36 Calculated Osmolality 286 mOsm/kg (285-295) 11/30/21 14:20 Calcium 8.3 mg/dL (8.5-10.5) L 11/30/21 14:20 Total Bilirubin 0.2 mg/dL (0.15-1.2) 11/30/21 14:20 AST 12 U/L (0-40) 11/30/21 14:20 ALT 12 U/L (0-41) 11/30/21 14:20 Alkaline Phosphatase 87 IU/L (40-130) 11/30/21 14:20 Troponin T Baseline 41 ng/L (0-15) H 11/30/21 14:20 Troponin T 120 Minute 44.20 ng/L (0-15) H 11/30/21 16:41 Delta Troponin T 3.20 ABS# (0-10) 11/30/21 16:41 NT-Pro-B Natriuret Pep 300 pg/mL (0-125) H 11/30/21 14:20 NT-Pro-B Natriuret Pep Cancelled 11/30/21 14:20 Total Protein 6.1 g/dL (6.6-8.7) L 11/30/21 14:20 Albumin 3.8 g/dL (3.5-5.2) 11/30/21 14:20 Globulin 2.3 g/dL (1.3-4.6) 11/30/21 14:20 A&P Assessment and plan (1) Atrial fibrillation: Status: Acute (2) COPD (chronic obstructive pulmonary disease): Status: Acute Plan Admit to CSU with A. fib with RVR. Started on Cardizem drip, titrate per protocol. Additionally pushes of metoprolol as needed for control of heart rate. Start overlap with p.o. Cardizem additionally. COPD, currently appears to be at baseline BiPAP as needed Continue inhalational budesonide and DuoNeb scheduled. Continue home dose of Lasix 40 mg p.o. daily Attestations Medical Necessity Statement*: Inpatient admission for A. fib with RVR, needing Cardizem infusion and control of heart rate. Coding Level of Care Code Acute Car Electronics Installer for Pacheco Morin Diagnoses COPD (chronic obstructive pulmonary disease) J44.9 Atrial fibrillation I48.91
[2021-11-30] MEDS: enoxaparin 40 mg/0.4 mL Syringe SUBCUT (19:25)
[2021-11-30] MEDS: dilTIAZem 60 mg Tablet PO (19:25)
--- NOTE | 2021-11-30 20:19 | ECG_ITS ---
[facility] Test Date: 2021-11-30 Pat Name: Nagi Cuellar Department: Room: Gender: Male Chair And Couch Maker: : 1955 Requested By: Nagi Arita Order Number: [id number] Dominguez MD: Krystal Meneses M.D. Measurements Intervals Mcloud Rate: 142 P: PA: QRS: 125 QRSD: 110 T: 56 QT: 289 QTc: 444 Interpretive Statements ATRIAL FLUTTER WITH RAPID VENTRICULAR RESPONSE INCOMPLETE RIGHT BUNDLE BRANCH BLOCK [90+ ms QRS DURATION, TERMINAL R IN V1/V2, 40+ ms S IN I/aVL/V4/V5/V6] POSSIBLE RIGHT VENTRICULAR HYPERTROPHY [SOME/ALL OF: PROMINENT R IN V1, LATE TRANSITION, RAD, PEPPER, SSS] Compared to ECG 11/02/2021 19:32:10 Incomplete right bundle-branch block now present Sinus rhythm no longer present Electronically Signed On 11-30-2021 17:25:12 SEAMER by Krystal Meneses M.D. [id number]
[2021-11-30 20:42] LABS: Troponin 5 6HR 42.03 ng/L (0-15)
[2021-11-30 20:43] LABS: Troponin 5 6HR Delta 1.03 ng/L (0-12)
[2021-11-30 21:08] LABS: Glucose Point of Care 403 mg/dL (70-110)
[2021-11-30] MEDS: insulin lispro 100 unit/1 mL SUBCUT (21:14)
[2021-11-30] MEDS: trazodone 100 mg Tablet PO (23:18)
--- NOTE | 2021-11-30 23:42 | PC.NURSE ---
respiratory at bedside performing breathing txment. patient in o obvious distress.
[2021-12-01] VITALS (18 sets, daily range): BP systolic 97–149; BP diastolic 54–80; PULSE 54–88; RESP 13–23; O2SAT 88–98
--- NOTE | 2021-12-01 01:40 | PC.NURSE ---
patients heart rate noted to be 62 bpm . Patient rhythm turned to sinus rhythm. pateints Cardizem drip turned off . Dr. Barron notified and will obtain ekg. marcelino in o obivous idstress. patient sleeping comfortablyin bed at his time on bipap. patient on compliance monitor.
[2021-12-01] MEDS: ipratropium-albuterol 3 mL Neb INHALATION ×3 (02:14→14:31)
[2021-12-01 04:18] LABS: Basophils % 0.4 %; Hematocrit 41.7 % (42.0-52.0); Hemoglobin 12.7 g/dL (11.7-16.6); Lymphocytes # 0.1 10^3/uL (0.8-4.8); Lymphocytes % 4.8 %; Mean Corpuscular HGB Conc 30.5 g/dL (30.0-36.0); Mean Corpuscular Hemoglobin 28.7 pg (28.0-34.0); Mean Corpuscular Volume 94.3 fl (80-94); Mean Platelet Volume 11.5 fL (7.4-10.4); Monocytes # 0.1 10^3/uL (0.2-0.9); Neutrophils # 2.04 10^3/uL (1.8-7.7); Neutrophils % 89.9 %; Nucleated Red Blood Cells % 0 %; Platelet Count 177 10^3/cmm (130-400); Red Blood Count 4.42 10^6/uL (4.1-5.3); Red Cell Distribution Width 17.1 % (12.1-15.1); White Blood Count 2.3 10^3/uL (4.0-10.0)
[2021-12-01 04:39] LABS: Alanine Aminotransferase 12 U/L (0-41); Albumin Level 3.6 g/dL (3.5-5.2); Alkaline Phosphatase 80 IU/L (40-130); Anion Gap 12.1 (5-19); Aspartate Amino Transferase 10 U/L (0-40); Blood Urea Nitrogen 26 mg/dL (8-23); Calcium 8.5 mg/dL (8.5-10.5); Carbon Dioxide 38 mmol/L (22-29); Chloride 91 mmol/L (98-107); Globulin 2.3 g/dL (1.3-4.6); Glucose 232 mg/dL (65-115); Osmolality Calculated 296 mOsm/kg (285-295); Potassium 4.1 mmol/L (3.5-5.1); Sodium 137 mmol/L (136-145); Total Bilirubin 0.2 mg/dL (0.15-1.2); Total Protein 5.9 g/dL (6.6-8.7)
[2021-12-01 05:12] LABS: Thyroid Stimulating Hormone 0.18 uIU/mL (0.27-4.20)
--- NOTE | 2021-12-01 05:52 | PC.NURSE ---
0500- patient sleeping comfortably in bed at this time. patient in no obivous distress. Even chest rise and fall noted. patient currently on bipap. patinet in no bovious distress. Side rails raised x 2 and bed in low, locked position. [facility]
--- NOTE | 2021-12-01 06:05 | PC.NURSE ---
Dr. Bass notified of patients bradycardia and will hold morning Cardizem dose per provider.
[2021-12-01] MEDS: methIMAzole 5 MG Tablet 2.5 MG PO (06:38)
[2021-12-01] MEDS: aspirin 81 mg EC Tablet PO (06:38)
[2021-12-01 07:57] LABS: Glucose Point of Care 204 mg/dL (70-110)
[2021-12-01] MEDS: budesonide 0.5 mg/2 mL Neb INHALATION (08:20)
[2021-12-01] MEDS: amiodarone 200 mg Tablet PO (09:46)
[2021-12-01] MEDS: FUROsemide 40 mg Tablet PO (09:46)
[2021-12-01] MEDS: pantoprazole DR 40 mg Tablet PO (09:46)
[2021-12-01] MEDS: insulin lispro 100 unit/1 mL SUBCUT ×2 (09:47→11:50)
[2021-12-01] MEDS: sacubitril/valsartan 24-26 mg Tablet 1 EACH PO (09:57)
--- NOTE | 2021-12-01 12:11 | PC.PHAR ---
PT WAS ABLE TO VERIFY HIS INSULIN BUT NO OTHER MEDICATIONS-PT STATES HE HAS HOME HEALTH WITH [facility] HOME CARE-PTS [facility] MED LIST HAD BOTH JANUVIA 50MG QAM AND JARDIANCE 25MG DAILY PTS GIRLFRIEND STATES THE PT ONLY HAS JANUVIA AT HOME EXT MED HISTORY SHOWS LAST FILLED 11/22/21 14D/S-NOTES ARE MADE IN THE PHARMACY COMMENTS
--- NOTE | 2021-12-01 13:05 | PM.DCS ---
Discharge Providers Date of Admission: 11/30/21 18:53 Date of Discharge: December 01, 2021 Attending Provider at Admission: Jany Eugene MD Attending Provider at Discharge: Jany Eugene MD Primary Care Provider: Nasreen Gomez Diagnoses at Discharge Discharge Diagnosis (1) Atrial fibrillation: Status: Acute Permanent problem details: (2) COPD (chronic obstructive pulmonary disease): Status: Acute Reason for Visit Reason for Visit: SOB Hospital Course Hospital Course Hospital 66-year-old male who was admitted yesterday evening because of A. fib with RVR, heart rate 140s. He reports that he has been having a hard time keeping up with his medications and the refills and may have missed a few doses. His home health nurse typically comes in on Mondays and sets up his pillbox but had not had a chance to do that. He was started on Cardizem drip infusion overnight and received a few pushes of as needed metoprolol along with that. Cardizem infusion was able to be turned off by around 3:30 AM this morning. Patient's heart rate has been holding between 70 to 80 bpm ever since then. His TSH did come back low, free T3 and T4 have been added to his labs. It appears his dose of methimazole was recently changed. Recommended to follow-up with his patient scheduling coordinator and accounting clerks supervisor within the next week. It appears that current Keith precipitated A. fib and RVR may have been related to missed medications therefore the dosing has not been changed. Encourage compliance. Medications will be delivered to bedside today. He is at baseline 02 requirement at 6lpm. 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 Laboratory Results WBC 2.3 10^3/uL (4.0-10.0) L 12/01/21 03:58 RBC 4.42 10^6/uL (4.1-5.3) 12/01/21 03:58 Hgb 12.7 g/dL (11.7-16.6) 12/01/21 03:58 Hct 41.7 % (42.0-52.0) L 12/01/21 03:58 MCV 94.3 fl (80-94) H 12/01/21 03:58 MCH 28.7 pg (28.0-34.0) 12/01/21 03:58 MCHC 30.5 g/dL (30.0-36.0) 12/01/21 03:58 RDW 17.1 % (12.1-15.1) H 12/01/21 03:58 Plt Count 177 10^3/cmm (130-400) 12/01/21 03:58 MPV 11.5 fL (7.4-10.4) H 12/01/21 03:58 Neut % (Auto) 89.9 % 12/01/21 03:58 Lymph % (Auto) 4.8 % 12/01/21 03:58 Garza % (Auto) 4.0 % 12/01/21 03:58 Eos % (Auto) 0.0 % 12/01/21 03:58 Baso % (Auto) 0.4 % 12/01/21 03:58 Neut # (Auto) 2.04 10^3/uL (1.8-7.7) 12/01/21 03:58 Lymph # (Auto) 0.1 10^3/uL (0.8-4.8) L 12/01/21 03:58 Garza # (Auto) 0.1 10^3/uL (0.2-0.9) L 12/01/21 03:58 Eos # (Auto) 0.0 10^3/uL (0.0-0.8) 12/01/21 03:58 Baso # (Auto) 0.0 10^3/uL (0.0-0.1) 12/01/21 03:58 Nucleated RBC % (auto) 0 % 12/01/21 03:58 Nucleated RBCs # 0.0 /100WBC 12/01/21 03:58 Specimen Type Arterial 11/30/21 17:49 Sample Site Radial, right 11/30/21 17:49 ABG pH 7.32 (7.35-7.45) L 11/30/21 17:49 ABG pCO2 90.1 mmHg (35-45) H* 11/30/21 17:49 ABG pO2 55.7 mmHg (80.0-100.0) L 11/30/21 17:49 ABG HCO3 46.7 mmol/L (22-26) H 11/30/21 17:49 ABG O2 Saturation 88.0 11/30/21 17:49 ABG Base Excess 16.0 mmol/L (-2.0-2.0) H 11/30/21 17:49 Gee Test Pos 11/30/21 17:49 A-a O2 Gradient Not Reportable 11/30/21 17:49 Hematocrit 41.8 % (42-52) L 11/30/21 17:49 Hgb O2 Saturation 83.8 % (95-100) L 11/30/21 17:49 Carboxyhemoglobin 3.8 %THgb (0.4-20.1) 11/30/21 17:49 Methemoglobin 1.1 % (0.4-1.5) 11/30/21 17:49 Total Hemoglobin 13.6 g/dL (14-18) L 11/30/21 17:49 Sodium 140.0 mmol/L (131-143) 11/30/21 17:49 Potassium 3.9 mmol/L (3.5-5.0) 11/30/21 17:49 Glucose 191.0 mg/dL (70-115) H 11/30/21 17:49 Ionized Calcium 1.1 mmol/L (1.1-1.4) 11/30/21 17:49 O2 Delivery Device Nc 11/30/21 17:49 O2 Liters/Min 6.0 % 11/30/21 17:49 Registered Dietician ID Wal[place] 11/30/21 17:49 Sodium 137 mmol/L (136-145) 12/01/21 03:58 Potassium 4.1 mmol/L (3.5-5.1) 12/01/21 03:58 Chloride 91 mmol/L (98-107) L 12/01/21 03:58 Carbon Dioxide 38 mmol/L (22-29) H 12/01/21 03:58 Anion Gap 12.1 (5-19) 12/01/21 03:58 BUN 26 mg/dL (8-23) H 12/01/21 03:58 Creatinine 0.9 mg/dL (0.7-1.2) 12/01/21 03:58 GFR Calculation 85.0 mL/min (90-130) L 12/01/21 03:58 Glucose 232 mg/dL (65-115) H 12/01/21 03:58 POC Glucose 204 mg/dL (70-110) H 12/01/21 07:52 Calculated Osmolality 296 mOsm/kg (285-295) H 12/01/21 03:58 Calcium 8.5 mg/dL (8.5-10.5) 12/01/21 03:58 Total Bilirubin 0.2 mg/dL (0.15-1.2) 12/01/21 03:58 AST 10 U/L (0-40) 12/01/21 03:58 ALT 12 U/L (0-41) 12/01/21 03:58 Alkaline Phosphatase 80 IU/L (40-130) 12/01/21 03:58 Troponin T Baseline 41 ng/L (0-15) H 11/30/21 14:20 Troponin T 120 Minute 44.20 ng/L (0-15) H 11/30/21 16:41 Delta Troponin T 3.20 ABS# (0-10) 11/30/21 16:41 Troponin T Hi Sens 6Hr 42.03 ng/L (0-15) H 11/30/21 19:57 Troponin T Hi Sens 6Hr Delta 1.03 ng/L (0-12) 11/30/21 19:57 NT-Pro-B Natriuret Pep 300 pg/mL (0-125) H 11/30/21 14:20 NT-Pro-B Natriuret Pep Cancelled 11/30/21 14:20 Total Protein 5.9 g/dL (6.6-8.7) L 12/01/21 03:58 Albumin 3.6 g/dL (3.5-5.2) 12/01/21 03:58 Globulin 2.3 g/dL (1.3-4.6) 12/01/21 03:58 TSH 0.18 uIU/mL (0.27-4.20) L 12/01/21 03:58 Vitals Last Vital Signs Temp 98.6 F 11/30/21 14:23 Pulse 76 12/01/21 12:30 Resp 17 12/01/21 12:30 BP 97/78 12/01/21 12:30 Pulse Ox 91 12/01/21 12:30 Discharge Plan Discharge Patient Disposition: Home Condition: Stable Prescriptions: Continued Lantus Solostar U-100 Insulin 100 unit/mL (3 mL) insulin pen 20 unit SUBCUT BEDTIME 0RF Yupelri 175 mcg/3 mL solution for nebulization 175 mcg inhalation DAILY Qty: 90 11RF Vitamin B12 Gummies 1 - 2 tab PO DAILY 0RF aspirin 81 mg tablet,delayed release (DR/EC) 81 mg PO QAM 0RF benzonatate 100 mg Capsule 100 mg PO TID PRN (Reason: Cough) Qty: 14 0RF rosuvastatin 20 mg tablet 10 mg PO DAILY 0RF Entresto 24-26 mg tablet 1 tab PO BID 0RF Hold Instructions: Resume on 11/12/21. Please speak with your heart doctor, and your primary care physician before resuming this medication. I was concerned about elevated potassium level. Your potassium level and kidney function will need to be rechecked before resuming this medication. furosemide 40 mg tablet 40 mg PO DAILY Qty: 0 0RF trazodone 50 mg tablet 100 mg PO BEDTIME 0RF methimazole 5 mg tablet 2.5 mg PO QAM 0RF Januvia 50 mg tablet 50 mg PO QAM 0RF omeprazole 40 mg capsule,delayed release(DR/EC) 40 mg PO QAM 0RF insulin lispro [Humalog KwikPen Insulin] 100 unit/mL insulin pen See Rx Instructions .ROUTE .COMPLEX MDD see pharmacy comment 0RF Rx Instructions: per sliding scale PRN potassium chloride 20 mEq tablet,ER particles/crystals 20 meq PO DAILY 0RF Pacerone 200 mg tablet 200 mg PO DAILY 90 Days Qty: 90 0RF metoprolol tartrate 50 mg tablet 50 mg PO BID 90 Days Qty: 180 0RF albuterol sulfate 90 mcg/actuation HFA aerosol inhaler 1 inh inhalation Q6H PRN (Reason: shortness of breath or wheezing) Qty: 8.5 0RF Perforomist 20 mcg/2 mL solution for nebulization 2 ml INHALATION BID Qty: 120 2RF Combivent Respimat 20-100 mcg/actuation mist 1 puff inhalation Q6H Qty: 4 0RF Discharge Orders: Discharge Order (Routine); Ordered 12/01/21 Ordered By: Jany Eugene Referrals: Nasreen Gomez PA [Primary Care Provider] - Patient Instructions: Opioid Safety Discharge Attestations Time Spent in Discharge Care*: greater than 30 min Status at Discharge: Cognitive status at discharge: cognitively intact, Behavioral status at discharge: cooperative, Quality Metrics Clinical Quality Measures [ No reported AMI, CVA or VTE this stay] Coding Level of Care Code Acute g FW [place] note Diagnoses Atrial fibrillation I48.91 COPD (chronic obstructive pulmonary disease) J44.9
[2021-12-01 13:43] LABS: Free T4 Free Thyroxine 1.31 ng/dL (0.82-1.77); T3 Free 1.7 PG/ML (2.0-4.4)
[2021-12-01 17:28] LABS: Glucose Point of Care 296 mg/dL (70-110)
== END 2021-12-01 15:46 | disposition home or self-care (01) | DRG 308 ==
LOC: ER 16:02 → CSU 20:33 → ER IP 12-01 07:00 → CSU 12-09 16:59 → ER IP 12-09 16:59
PROVIDERS: Emergency Medicine; Admitting Provider Student in an Organized Health Care Education/Training Program; Emergency Provider Family Medicine; PCP Physician Assistant; Visit Provider Student in an Organized Health Care Education/Training Program
DX: I48.91 Unspecified atrial fibrillation (principal); J44.9 Chronic obstructive pulmonary disease, unspecified; Z79.4 Long term (current) use of insulin; Z99.81 Dependence on supplemental oxygen; I25.10 Atherosclerotic heart disease of native coronary artery without angina pectoris; G47.33 Obstructive sleep apnea (adult) (pediatric); Z86.16 Personal history of COVID-19; I13.0 Hypertensive heart and chronic kidney disease with heart failure and stage 1 through stage 4 chronic kidney disease, or unspecified chronic kidney disease; I50.30 Unspecified diastolic (congestive) heart failure; N18.2 Chronic kidney disease, stage 2 (mild); E11.22 Type 2 diabetes mellitus with diabetic chronic kidney disease; J96.02 Acute respiratory failure with hypercapnia; Z91.14 Patient's other noncompliance with medication regimen; E11.65 Type 2 diabetes mellitus with hyperglycemia; F17.210 Nicotine dependence, cigarettes, uncomplicated; Z79.82 Long term (current) use of aspirin; I25.2 Old myocardial infarction
CPT/HCPCS: 36415; 36416; 36600; 71045; 80051; 80053; 82330; 82805; 82962; 83880; 84439; 84443; 84481; 84484; 85025; 93005; 94640; 94660; 96365; 96372; 96375; 99291; G0378; J1650; J1815; J1940; J2930; J3490; J7626

== ENCOUNTER 2021-12-04 21:47 | Inpatient (IN) | payer MEDICARE, MEDICAID, SELFPAY ==
[2021-12-04] VITALS (11 sets, daily range): BP systolic 113–165; BP diastolic 44–77; PULSE 75–133; RESP 17–34; O2SAT 88–96; BMI 33.3
--- NOTE | 2021-12-04 22:35 | XRR_ITS ---
PROCEDURE INFORMATION: Exam: XR Chest Exam date and time: 12/04/2021 10:35 PM Age: 66 years old Clinical indication: Dyspnea; Additional info: SOB TECHNIQUE: Imaging protocol: XR of the chest. Views: 1 view. COMPARISON: CR XR chest 1V portable [id number] 11/30/2021 2:06 PM FINDINGS: Lungs: Pulmonary venous congestion and mild bilateral interstitial infiltrates noted. Findings are suggestive of mild fluid overload/CHF. Mild atelectasis at the lung bases. Pleural spaces: Suspect minimal bilateral pleural effusions. Heart/Mediastinum: Mild cardiomegaly is noted. Bones/joints: Degenerative spine changes are noted. No acute abnormality identified. XR/XR chest 1V portable [id number] IMPRESSION: 1. Mild cardiomegaly is noted. 2. Pulmonary venous congestion and mild bilateral interstitial infiltrates noted. Findings are suggestive of mild fluid overload/CHF. This appears new when compared to 11/30/2021. 3. Suspect minimal bilateral pleural effusions.
--- NOTE | 2021-12-04 22:37 | W.ED.SOB ---
HPI - SOB/Dyspnea General: Chief Complaint: Shortness of Breath/Dyspnea Stated Complaint: SHORTNESS OF BREATH Time Seen by Provider: 12/04/21 22:17 Source: patient History of Present Illness: HPI Narrative: 66-year-old gentleman with a history of chronic respiratory failure and COPD as well as atrial fibrillation. He presents with shortness of breath. He was just discharged on 12/01 for similar problems. He was having trouble breathing at night, and was drowsy. His told him to call ambulance. EMS found him with an O2 sat of 61% on his home 4 L of oxygen. He is improved to 89% currently. He is a bit more alert. He states that his chest has been somewhat uncomfortable, his legs are more swollen, and his A. fib is acting up Pertinent past history: COPD, congestive heart failure and other Context: recent illness Timing: constant and progressively worsening Exacerbating factors: lying flat and exertion Relieving factors: oxygen and bronchodilators Known history of: COPD, congestive heart failure and other Associated symptoms: Reports chest pain, cough and dizziness; Deny fever(s), nausea, syncope or vomiting Treatment prior to arrival: oxygen and bronchodilator Review of Systems Const: Denies: fever(s) Card: Reports: chest pain; Denies: syncope GI: Denies: nausea or vomiting Neuro: Reports: dizziness PFSH ED PFSH: Medical History Acute exacerbation of chronic obstructive airways disease Acute hypercapnic respiratory failure Atrial fibrillation Atrial fibrillation with rapid ventricular response CAD (coronary artery disease) Chest pain CHF (congestive heart failure) Chronic kidney disease, stage II (mild) Chronic respiratory failure with hypoxia Congestive heart failure COPD (chronic obstructive pulmonary disease) Cor pulmonale Diabetes Elevated troponin I level Heart attack Hypertension Hypoxia Moderate aortic stenosis Nicotine addiction DAYNE (obstructive sleep apnea) Pneumonia Surgical History H/O hernia repair Family History Mother Lung disease COPD Sister Cancer Social History Smoking and tobacco status: current some day smoker cigarettes Years cigarettes smoked: 47 [ Other cigarette details: Hx of 2PPD x 47 Years] Quit status (tobacco): considering quitting Second hand smoke exposure: Yes Smoking risk assessment/counseling performed?: Yes Alcohol intake: current Alcohol intake frequency: holidays/special occasions only Desire information about alcohol rehabilitation?: No Counseling given: No Desire information about substance/drug rehabilitation?: No Counseling given: No Caregiver/support person: Yes Lives independently: Yes Household members: none Marital status: Single Current occupational status: disabled and 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 History of recent travel: No Current gender identity: Male Physical Exam Const: EXAM LIMITATIONS: altered mental status (mild) GENERAL APPEARANCE: cooperative, lethargic, ill appearing and frail appearing ORIENTATION/CONSCIOUSNESS: Yes awake, Yes oriented to person, Yes oriented to place and Yes lethargic; not oriented to time HENMT: COMMON NORMALS: normocephalic, atraumatic and Normal external nose present HEAD & SCALP: normocephalic and atraumatic NOSE: Normal external nose present Chest: COMMONS NORMALS: normal inspection of the chest Breast/axilla inspection: Yes no chest deformity, asymmetry, normal contours, no nodules, masses, tenderness Resp: EFFORT & INSPECTION: Yes tachypneic, Yes respiratory distress (mild), Yes uses accessory muscles and No tracheal deviation AUSCULTATION: wheezes and diminished lung sounds Cardio: COMMON NORMALS: regular rate and regular rhythm RATE: regular rate RHYTHM: regular rhythm GI: COMMON NORMALS: Normal to inspection, nondistended, normoactive bowel sounds present and Soft to palpation PALPATION: Yes Soft to palpation Extremity: GENERAL: Yes edema Neuro: SENSORIUM/ORIENTATION: Yes oriented to person, Yes oriented to place, No oriented to time and Yes lethargic Course Consultations: Consultation #1: [email or web address] Vital Signs: Vital signs: Vital Signs Temperature 97.9 F 12/05/21 05:15 Pulse Rate 76 12/05/21 06:00 Respiratory Rate 20 H 12/05/21 05:15 Blood Pressure 146/75 12/05/21 05:15 Pulse Oximetry 94 12/05/21 05:15 MDM - SOB/Dyspnea Medical Decision Making 66-year-old gentleman with recent admission for COPD exacerbation. He presents with similar symptoms. He is placed on BiPAP for hypercapnic, hypoxic respiratory failure. His blood gas began to improve and an hour his CBC is normal. BMP is benign. Chest x-ray reveals venous congestion and interstitial infiltrates. His COVID-19 rapid is negative. He did well on the BiPAP. He will have to go to the ICU for respiratory failure. Hospitalist has seen the patient in the ER. Lab Data : 12/05/21 00:37 12/05/21 00:37 Labs/Radiology: Radiology Impressions Chest X-Ray 12/04/21 22:35 IMPRESSION: 1. Mild cardiomegaly is noted. 2. Pulmonary venous congestion and mild bilateral interstitial infiltrates noted. Findings are suggestive of mild fluid overload/CHF. This appears new when compared to 11/30/2021. 3. Suspect minimal bilateral pleural effusions. Laboratory Results WBC 6.8 10^3/uL (4.0-10.0) 12/05/21 00:37 RBC 4.65 10^6/uL (4.1-5.3) 12/05/21 00:37 Hgb 13.4 g/dL (11.7-16.6) 12/05/21 00:37 Hct 44.3 % (42.0-52.0) 12/05/21 00:37 MCV 95.3 fl (80-94) H 12/05/21 00:37 MCH 28.8 pg (28.0-34.0) 12/05/21 00:37 MCHC 30.2 g/dL (30.0-36.0) 12/05/21 00:37 RDW 17.2 % (12.1-15.1) H 12/05/21 00:37 Plt Count 224 10^3/cmm (130-400) 12/05/21 00:37 MPV 10.6 fL (7.4-10.4) H 12/05/21 00:37 Neut % (Auto) 90.2 % 12/05/21 00:37 Lymph % (Auto) 4.0 % 12/05/21 00:37 [place] % (Auto) 2.1 % 12/05/21 00:37 Eos % (Auto) 0.6 % 12/05/21 00:37 Baso % (Auto) 0.7 % 12/05/21 00:37 Neut # (Auto) 6.12 10^3/uL (1.8-7.7) 12/05/21 00:37 Lymph # (Auto) 0.3 10^3/uL (0.8-4.8) L 12/05/21 00:37 [place] # (Auto) 0.1 10^3/uL (0.2-0.9) L 12/05/21 00:37 Eos # (Auto) 0.0 10^3/uL (0.0-0.8) 12/05/21 00:37 Baso # (Auto) 0.1 10^3/uL (0.0-0.1) 12/05/21 00:37 Nucleated RBC % (auto) 0 % 12/05/21 00:37 Nucleated RBCs # 0.0 /100WBC 12/05/21 00:37 D-Dimer 0.59 ug/mIFEU (0-0.59) 12/05/21 00:37 Specimen Type Arterial 12/04/21 11:01 Sample Site Radial, right 12/04/21 11:01 ABG pH 7.30 (7.35-7.45) L 12/04/21 11:01 ABG pCO2 98.3 mmHg (35-45) H* 12/04/21 11:01 ABG pO2 51.2 mmHg (80.0-100.0) L 12/04/21 11:01 ABG HCO3 48.3 mmol/L (22-26) H 12/04/21 11:01 ABG Base Excess 16.9 mmol/L (-2.0-2.0) H 12/04/21 11:01 Gee Test Pos 12/04/21 11:01 Hematocrit 41.1 % (42-52) L 12/04/21 11:01 Hgb O2 Saturation 80.1 % (95-100) L 12/04/21 11:01 Carboxyhemoglobin 5.0 %THgb (0.4-20.1) 12/04/21 11:01 Methemoglobin 1.2 % (0.4-1.5) 12/04/21 11:01 Total Hemoglobin 13.4 g/dL (14-18) L 12/04/21 11:01 O2 Delivery Device Nc 12/04/21 11:01 O2 Liters/Min 5.0 % 12/04/21 11:01 Telecommunications Switch Technician ID [email or web address] 12/04/21 11:01 Sodium 137 mmol/L (136-145) 12/05/21 00:37 Potassium 4.5 mmol/L (3.5-5.1) 12/05/21 00:37 Chloride 90 mmol/L (98-107) L 12/05/21 00:37 Carbon Dioxide 34 mmol/L (22-29) H 12/05/21 00:37 Anion Gap 17.5 (5-19) 12/05/21 00:37 BUN 20 mg/dL (8-23) 12/05/21 00:37 Creatinine 0.7 mg/dL (0.7-1.2) 12/05/21 00:37 GFR Calculation 113.5 mL/min (90-130) 12/05/21 00:37 Glucose 187 mg/dL (65-115) H 12/05/21 00:37 Estimat Average Glucose 143 12/05/21 00:37 Hemoglobin A1c 6.6 % (4.0-6.0) H 12/05/21 00:37 Calculated Osmolality 292 mOsm/kg (285-295) 12/05/21 00:37 Calcium 9.5 mg/dL (8.5-10.5) 12/05/21 00:37 Total Bilirubin 0.2 mg/dL (0.15-1.2) 12/05/21 00:37 AST 10 U/L (0-40) 12/05/21 00:37 ALT 14 U/L (0-41) 12/05/21 00:37 Alkaline Phosphatase 84 IU/L (40-130) 12/05/21 00:37 Troponin T Baseline 36 ng/L (0-15) H 12/05/21 00:37 C-Reactive Protein 12.6 mg/L (0.0-4.9) H 12/05/21 00:37 NT-Pro-B Natriuret Pep 695 pg/mL (0-125) H 12/05/21 00:37 Total Protein 6.1 g/dL (6.6-8.7) L 12/05/21 00:37 Albumin 3.5 g/dL (3.5-5.2) 12/05/21 00:37 Globulin 2.6 g/dL (1.3-4.6) 12/05/21 00:37 Procalcitonin 0.07 ng/mL (0-0.5) 12/05/21 00:37 Influenza Type A Ag Negative (Negative) 12/05/21 00:20 Influenza Type B Ag Negative (Negative) 12/05/21 00:20 SARS-CoV-2 Ag (Rapid) Negative (Negative) 12/05/21 00:20 Critical Care Time Critical Care Time: Critical Care Time: Yes Total Critical Care Time: 36 Attestation: This case had a high probability of a clinically significant, sudden, or life threatening deterioration of this patient's condition which required my full and direct attention, intervention and personal management. This is independent of any procedures performed. Discharge Plan Discharge Patient Disposition: Admitted As Inpatient Admit Provider: Unruly Bass Condition: Stable Coding Level of Care Code ED Business Analyst Ecommerce for g Fwd Exam Detailed
[2021-12-04] MEDS: ipratropium-albuterol 3 mL Neb INHALATION (22:50)
[2021-12-04 23:11] LABS: Arterial Blood Gas Hematocrit 41.1 % (42-52); Base Excess ABG 16.9 mmol/L (-2.0-2.0); Blood Gas Allen Test Pos; Blood Gas Sample Type Arterial; HCO3 ABG 48.3 mmol/L (22-26); HGB O2 Sat 80.1 % (95-100); Methemoglobin 1.2 % (0.4-1.5); PO2 ABG 51.2 mmHg (80.0-100.0); Total Hemoglobin 13.4 g/dL (14-18)
[2021-12-04 23:13] LABS: Blood Gas Sample Site Radial, right; Oxygen Device NC
[2021-12-04 23:59] LABS: ABG PCO2 98.3 mmHg (35-45)
[2021-12-05] VITALS (40 sets, daily range): BP systolic 111–166; BP diastolic 59–86; PULSE 58–98; RESP 14–27; TEMP 36.6–37.1; O2SAT 89–98; BMI 34.1
--- NOTE | 2021-12-05 00:36 | ECG_ITS ---
[facility] Test Date: 2021-12-05 Pat Name: Nagi Cuellar Department: Room: Gender: Male Hand Potter: : 1955 Requested By: Rudy Bell Order Number: [id number] Dominguez MD: ADAN ENRIQUEZ Measurements Intervals [place] Rate: 78 P: 20 WI: 188 QRS: 12 QRSD: 98 T: 42 QT: 372 QTc: 424 Interpretive Statements SINUS RHYTHM POSSIBLE LEFT ATRIAL ENLARGEMENT [-0.1mV P-WAVE IN V1/V2] INCOMPLETE RIGHT BUNDLE BRANCH BLOCK [90+ ms QRS DURATION, TERMINAL R IN V1/V2, 40+ ms S IN I/aVL/V4/V5/V6] MINIMAL ST DEPRESSION [0.025+ mV ST DEPRESSION] Compared to ECG 12/01/2021 01:50:59 Incomplete right bundle-branch block now present ST (T wave) deviation now present Sinus bradycardia no longer present First degree AV block no longer present Electronically Signed On 12-05-2021 19:19:48 FEEDER WORKER POWER UNIT OPERATOR by ADAN ENRIQUEZ [id number]
[2021-12-05 00:49] LABS: Basophils # 0.1 10^3/uL (0.0-0.1); Basophils % 0.7 %; Eosinophils % 0.6 %; Hematocrit 44.3 % (42.0-52.0); Hemoglobin 13.4 g/dL (11.7-16.6); Lymphocytes # 0.3 10^3/uL (0.8-4.8); Mean Corpuscular HGB Conc 30.2 g/dL (30.0-36.0); Mean Corpuscular Hemoglobin 28.8 pg (28.0-34.0); Mean Corpuscular Volume 95.3 fl (80-94); Mean Platelet Volume 10.6 fL (7.4-10.4); Monocytes # 0.1 10^3/uL (0.2-0.9); Monocytes % 2.1 %; Neutrophils # 6.12 10^3/uL (1.8-7.7); Neutrophils % 90.2 %; Nucleated Red Blood Cells % 0 %; Platelet Count 224 10^3/cmm (130-400); Red Blood Count 4.65 10^6/uL (4.1-5.3); Red Cell Distribution Width 17.2 % (12.1-15.1); White Blood Count 6.8 10^3/uL (4.0-10.0)
--- NOTE | 2021-12-05 01:01 | PM.HP ---
Providers/Chief Complaint Primary Care Provider: Nasreen Gomez Chief Complaint: SHORTNESS OF BREATH History of Present Illness Nagi Cuellar is a 66 year old male with a past medical history of advanced COPD, on home O2, home BiPAP, diastolic heart failure, atrial fibrillation, CAD, sleep apnea, insulin-dependent type 2 diabetes mellitus, hypertension, history of Covid infection, history of GI bleed not on anticoagulation has had recurrent hospitalizations in the last 2 months, who presents [facility] due to worsening shortness of breath. Patient has been vaccinated for Covid, is received all 3 vaccines, no history of Covid exposure, he reports increasingly feeling short of breath, lower extremity edema, no chest pain, no palpitations. Reports a nonproductive cough, no fevers, no chills. Reports compliance with his home BiPAP machine. Review of Systems Const: Denies: fever(s), chills, fatigue or malaise Eyes: Denies: change in vision or blurry vision ENMT: Denies: nasal congestion Card: Reports: edema; Denies: chest pain or palpitations Resp: Reports: dyspnea and non-productive cough; Denies: productive cough or wheezing GI: Denies: abdominal pain, nausea, vomiting, hematemesis, diarrhea, constipation, hematochezia or melena : Denies: flank pain, difficulty urinating, dysuria or urinary frequency Musc: Denies: neck pain or back pain Skin/Breast: Denies: rash Neuro: Denies: headache(s), dizziness or vertigo Psych: Denies: anxiety Endo: Denies: polyuria or polydipsia Medications/Allergies Home Medications Medication Instructions Recorded Confirmed Last Taken Type methimazole 5 mg tablet 2.5 mg PO QAM 01/15/21 12/01/21 11/02/21 History omeprazole 40 mg capsule,delayed 40 mg PO QAM 07/18/21 12/01/21 11/02/21 History release sitagliptin 50 mg tablet (Januvia) 50 mg PO QAM tab 07/23/21 12/01/21 11/02/21 History Vitamin B12 Gummies 1 - 2 tab PO DAILY 08/02/21 12/01/21 11/02/21 History aspirin 81 mg tablet,delayed 81 mg PO QAM 08/12/21 12/01/21 11/02/21 History release benzonatate 100 mg capsule 100 mg PO TID PRN #14 cap 08/17/21 12/01/21 Unknown Rx insulin glargine 100 unit/mL (3 20 unit SUBCUT BEDTIME ml 09/21/21 12/01/21 11/01/21 History mL) subcutaneous pen (Lantus Solostar U-100 Insulin) trazodone 50 mg tablet 100 mg PO BEDTIME tab 09/21/21 12/01/21 11/01/21 History rosuvastatin 20 mg tablet 10 mg PO DAILY 10/01/21 12/01/21 11/01/21 History sacubitril 24 mg-valsartan 26 mg 1 tab PO BID 10/01/21 12/01/21 11/02/21 History tablet (Entresto) furosemide 40 mg tablet 40 mg PO DAILY #0 tab 10/08/21 12/01/21 11/02/21 Rx revefenacin 175 mcg/3 mL solution 175 mcg (3 mL) INHALATION DAILY 10/15/21 12/01/21 11/02/21 Rx for nebulization (Yupelri) #90 ml insulin lispro 100 unit/mL See Rx Instructions .ROUTE 11/02/21 12/01/21 Unknown History subcutaneous pen (Humalog KwikPen .COMPLEX MDD see pharmacy comment (U-100) Insulin) albuterol sulfate 90 mcg/actuation 1 inh INHALATION Q6H PRN #8.5 g 12/01/21 Unknown Rx aerosol inhaler amiodarone 200 mg tablet (Pacerone) 200 mg PO DAILY 90 Days #90 tab 12/01/21 Unknown Rx formoterol fumarate 20 mcg/2 mL 2 ml INHALATION BID #120 ml 12/01/21 Unknown Rx solution for nebulization (Perforomist) ipratropium 20 mcg-albuterol 100 1 puff INHALATION Q6H #4 g 12/01/21 Unknown Rx mcg/actuation mist for inhalation (Combivent Respimat) metoprolol tartrate 50 mg tablet 50 mg PO BID 90 Days #180 tab 12/01/21 Unknown Rx potassium chloride 20 mEq 20 meq PO DAILY 12/01/21 12/01/21 Unknown History tablet,extended release(part/cryst) Allergies Allergy/AdvReac Type Severity Reaction Status Date / Time No Known Allergies Allergy Verified 12/04/21 22:00 PFSH Acute PFSH: Medical History Acute exacerbation of chronic obstructive airways disease Acute hypercapnic respiratory failure Atrial fibrillation Atrial fibrillation with rapid ventricular response CAD (coronary artery disease) Chest pain CHF (congestive heart failure) Chronic kidney disease, stage II (mild) Chronic respiratory failure with hypoxia Congestive heart failure COPD (chronic obstructive pulmonary disease) Cor pulmonale Diabetes Elevated troponin I level Heart attack Hypertension Hypoxia Moderate aortic stenosis Nicotine addiction DAYNE (obstructive sleep apnea) Pneumonia Surgical History H/O hernia repair Family History Mother Lung disease COPD Sister Cancer Social History Smoking and tobacco status: current some day smoker cigarettes Years cigarettes smoked: 47 [ Other cigarette details: Hx of 2PPD x 47 Years] Quit status (tobacco): considering quitting Second hand smoke exposure: Yes Smoking risk assessment/counseling performed?: Yes Alcohol intake: current Alcohol intake frequency: holidays/special occasions only Desire information about alcohol rehabilitation?: No Counseling given: No Desire information about substance/drug rehabilitation?: No Counseling given: No Caregiver/support person: Yes Lives independently: Yes Household members: none Marital status: Single Current occupational status: disabled and 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 History of recent travel: No Current gender identity: Male Vitals/I&O/Wt Last Vital Signs Pulse 84 12/05/21 00:30 Resp 19 H 12/05/21 00:30 BP 165/77 12/04/21 23:30 Pulse Ox 91 12/05/21 00:30 Weight last 48 hrs Weight 90.718 kg Physical Exam Const: COMMON NORMALS: no acute distress and patient oriented x3 HENMT: COMMON NORMALS: normocephalic HEAD & SCALP: normocephalic Eye: COMMON NORMALS: Equal, round and reactive pupils present and EOMs intact bilaterally Neck/C-Spine: COMMON NORMALS: no JVD Lymph: LYMPHATIC: no lymphadenopathy noted Chest: COMMONS NORMALS: normal inspection of the chest Resp: COMMON NORMALS: normal respiratory effort, No retractions and No use of accessory muscles AUSCULTATION: crackles Cardio: COMMON NORMALS: no JVD, regular rate, regular rhythm, S1 normal heart sound present and S2 normal heart sound present RATE: regular rate RHYTHM: regular rhythm HEART SOUNDS: S1 normal heart sound present and S2 normal heart sound present GI: COMMON NORMALS: Normal to inspection, nondistended, normoactive bowel sounds present, Soft to palpation, non-tender, No hepatosplenomegaly present, no masses and no bruits PALPATION: Yes Soft to palpation and Yes No hepatosplenomegaly present Extremity: COMMON NORMALS: capillary refill normal, no clubbing, cyanosis or edema and no calf tenderness NARRATIVE EXTREMITY EXAM: Bilateral pitting edema Neuro: COMMON NORMALS: patient oriented x3 Psych: COMMON NORMALS: mental status grossly normal Data : 12/05/21 00:37 12/05/21 00:37 A&P Assessment and plan (1) Acute hypercapnic respiratory failure: Status: Acute (2) Hypertension: Status: Acute (3) Diabetes: Status: Acute (4) Moderate aortic stenosis: Status: Acute (5) Congestive heart failure: Status: Acute (6) COPD (chronic obstructive pulmonary disease): Status: Acute (7) Atrial fibrillation: Status: Acute (8) Hyperthyroidism: Status: Acute (9) Coronary artery disease due to type 2 diabetes mellitus: Status: Acute Plan Acute on chronic hypercarbic respiratory failure -Secondary to systolic diastolic CHF Plan: -Admit to ICU -Continue BiPAP, monitor respiratory status closely -Fluid restriction 1500 cc -Lasix 40 IV twice daily -Ipratropium, budesonide, Solu-Medrol 40 every 12 -Cardiac echocardiogram -Monitor potassium, magnesium, creatinine -Full code -SCDs for DVT prophylaxis, anticoagulation relatively contraindicated given GI bleed history Type 2 diabetes mellitus -Lantus 10 units at bedtime -Low-dose sliding scale -Hemoglobin A1c COPD, 4 L oxygen dependent, on BiPAP -DuoNebs, Solu-Medrol -Received Solu-Medrol in the ER Atrial fibrillation -Not in exacerbation -Continue home amiodarone Moderate aortic stenosis Hypertension Attestations Medical Necessity Statement*: Patient requires hospitalization, inpatient, greater than 2 minutes, for acute hypercarbic respiratory failure Critical Care Time: 35 Coding Level of Care Code Acute Electronic Warfare Linguist for g Fwd Exam Comprehensive Medical Decision Making High Complexity Diagnoses Acute hypercapnic respiratory failure J96.02 Hypertension I10 Diabetes E11.9 Moderate aortic stenosis I35.0 Congestive heart failure I50.9 COPD (chronic obstructive pulmonary disease) J44.9 Atrial fibrillation I48.91 Hyperthyroidism E05.90 Coronary artery disease due to type 2 diabetes mellitus E11.59; I25.10 Time Spent (min) 55
[2021-12-05 01:04] LABS: D Dimer 0.59 ug/mIFEU (0-0.59)
[2021-12-05 01:07] LABS: Influenza A by IFA Negative (Negative); Influenza B by IFA Negative (Negative); SARS Covid-2 Antigen Negative (Negative)
[2021-12-05 01:12] LABS: ABG PH Result 7.33 (7.35-7.45); Arterial Blood Gas Hematocrit 41.7 % (42-52); Base Excess ABG 15.7 mmol/L (-2.0-2.0); Blood Gas Allen Test Pos; Blood Gas Sample Type Arterial; HCO3 ABG 46.1 mmol/L (22-26); PO2 ABG 68.5 mmHg (80.0-100.0)
[2021-12-05 01:13] LABS: Blood Gas Sample Site Radial, left; Oxygen Device BIPAP
[2021-12-05 01:16] LABS: Troponin(5th) Baseline 36 ng/L (0-15)
[2021-12-05 01:17] LABS: ABG PCO2 88.4 mmHg (35-45)
[2021-12-05] MEDS: FUROsemide 10 mg/mL SDV 10mL 80 MG IVP (01:19)
[2021-12-05 01:24] LABS: NT Pro B Type Natriuretic Pept 695 pg/mL (0-125); Procalcitonin 0.07 ng/mL (0-0.5)
[2021-12-05 01:33] LABS: Estmated Average Glucose 143; Hemoglobin A1C 6.6 % (4.0-6.0)
[2021-12-05 01:35] LABS: Alanine Aminotransferase 14 U/L (0-41); Albumin Level 3.5 g/dL (3.5-5.2); Alkaline Phosphatase 84 IU/L (40-130); Anion Gap 17.5 (5-19); Aspartate Amino Transferase 10 U/L (0-40); Blood Urea Nitrogen 20 mg/dL (8-23); C Reactive Protein 12.6 mg/L (0.0-4.9); Calcium 9.5 mg/dL (8.5-10.5); Carbon Dioxide 34 mmol/L (22-29); Chloride 90 mmol/L (98-107); Globulin 2.6 g/dL (1.3-4.6); Glomerular Filtration Rate 113.5 mL/min (90-130); Glucose 187 mg/dL (65-115); Osmolality Calculated 292 mOsm/kg (285-295); Potassium 4.5 mmol/L (3.5-5.1); Sodium 137 mmol/L (136-145); Total Bilirubin 0.2 mg/dL (0.15-1.2); Total Protein 6.1 g/dL (6.6-8.7)
[2021-12-05 02:46] LABS: Troponin 5 2HR 33.89 ng/L (0-15)
[2021-12-05 02:47] LABS: Lactic Sepsis W/Reflex 0.9 mmol/L (0.5-2.2)
[2021-12-05 03:05] LABS: Troponin 5 2HR Delta -2.11 ABS# (0-10)
--- NOTE | 2021-12-05 04:36 | ECG_ITS ---
[facility] Test Date: 2021-12-05 Pat Name: Nagi Cuellar Department: Room: ICU07 Gender: Male Weather Analyst: : 1955 Requested By: Rudy Bell Order Number: [id number] Reading MD: ADAN ENRIQUEZ Measurements Intervals [place] Rate: 73 P: 60 WI: 201 QRS: 47 QRSD: 105 T: 57 QT: 394 QTc: 436 Interpretive Statements SINUS RHYTHM WITH OCCASIONAL VENTRICULAR PREMATURE COMPLEXES INCOMPLETE RIGHT BUNDLE BRANCH BLOCK [90+ ms QRS DURATION, TERMINAL R IN V1/V2, 40+ ms S IN I/aVL/V4/V5/V6] Compared to ECG 12/05/2021 01:04:22 Ventricular premature complex(es) now present ST (T wave) deviation no longer present Electronically Signed On 12-05-2021 19:19:33 PHYSICAL THERAPY ATTENDANT by ADAN ENRIQUEZ [id number]
--- NOTE | 2021-12-05 05:29 | USCV_ITS ---
Nagi Cuellar Age: 66 Gender: M : 1955 Exam Date: 12/05/2021 07:21 Ordering Phys: Unruly Bass MD Technologist: Chelsea Pepe Exam Location: [facility] Indication: Edema BP: 146 / 75 HR: 70 Rhythm: Sinus Technical Quality: Suboptimal MEASUREMENTS (Male / Female) Normal Values 2D ECHO LV Diastolic Diameter PLAX 3.6 cm 4.2 - 5.9 / 3.9 - 5.3 cm LV Systolic Diameter PLAX 2.3 cm IVS Diastolic Thickness 1.9 cm 0.6 - 1.0 / 0.6 - 0.9 cm IVS Systolic Thickness 1.5 cm LVPW Diastolic Thickness 1.3 cm 0.6 - 1.0 / 0.6 - 0.9 cm LVPW Systolic Thickness 1.6 cm RV Chamber Size 3.1 cm LVOT Diameter 1.8 cm LV Ejection Fraction 2D Teich 65.3 % LV Ejection Fraction MOD 2C 73.3 % LV Ejection Fraction 2C AL 72.7 % LA Diameter 4.9 cm LA Width 2.7 cm LA Height 5.3 cm RA Width 3.1 cm RA Height 5.2 cm Aorta at Sinotubular Diameter 3.1 cm M-MODE Aortic Annulus Diameter 4.3 cm LA Ao Ratio MM 1.1 DOPPLER AV Peak Velocity 170.4 cm/s LVOT Peak Velocity 128.0 cm/s AV Area Cont Eq vti 2.3 cm squared AV Area Cont Eq pk 2.0 cm squared MV Area PHT 3.3 cm squared Mitral E to A Ratio 0.9 MV E' Velocity 52.0 cm/s Mitral E to MV E' Ratio 13.7 Mitral E to LV E' Lateral Ratio 12.4 Mitral E to LV E' Septal Ratio 15.2 TV Peak E Velocity 53.0 cm/s Right Atrial Pressure 15.0 mmHg RV Acceleration Time 0.1 s RV Ejection Time 0.3 s RV AcT/ET 0.3 FINDINGS Left Ventricle Normal left ventricular cavity size. Normal left ventricular systolic function. No regional wall motion abnormalities. Left ventricular ejection fraction is estimated at 65 %. Grade I/IV diastolic dysfunction (abnormal relaxation filling pattern), normal to mildly elevated filling pressures. Right Ventricle The right ventricle is normal in size and function. RVSP could not be calculated due to incomplete tricuspid regurgitation velocity profile. Right Atrium The right atrium is normal in size. Left Atrium The left atrium is normal in size. Mitral Valve Structurally normal mitral valve without significant stenosis or prolapse. There is no mitral regurgitation. Aortic Valve Structurally normal aortic valve without significant sclerosis or stenosis. There is no aortic regurgitation. Tricuspid Valve Structurally normal tricuspid valve without significant stenosis or regurgitation. Pulmonic Valve Structurally normal pulmonic valve without significant stenosis. There is no pulmonic regurgitation. Pericardium Normal pericardium without effusion. Aorta Normal ascending aorta dimension. CONCLUSIONS 1-Normal left ventricular cavity size. Normal left ventricular systolic function. No regional wall motion abnormalities. Left ventricular ejection fraction is estimated at 65 %. Grade I/IV diastolic dysfunction (abnormal relaxation filling pattern), normal to mildly elevated filling pressures. 2-There is no pericardial effusion. 3-No significant valve abnormalities. 4-The right ventricle is normal in size and function. RVSP could not be calculated due to incomplete tricuspid regurgitation velocity profile. 5-Right atrial pressure is around 15 mm of mercury. 6-No significant change since the prior echocardiogram study of 07/20/2021. Erick Henderson MD (Electronically Signed) Final Date: 05 December 2021 19:58 S
[2021-12-05] MEDS: metOLazone 5 MG Tablet 10 MG PO (06:22)
[2021-12-05] MEDS: aspirin 81 mg EC Tablet PO (06:22)
[2021-12-05 07:13] LABS: Troponin 5 6HR 30.02 ng/L (0-15)
[2021-12-05 07:16] LABS: Troponin 5 6HR Delta -5.98 ng/L (0-12)
[2021-12-05 07:26] LABS: Thyroid Stimulating Hormone 0.19 uIU/mL (0.27-4.20)
[2021-12-05] MEDS: budesonide 0.5 mg/2 mL Neb INHALATION ×2 (08:03→20:24)
[2021-12-05] MEDS: ipratropium-albuterol 3 mL Neb INHALATION ×4 (08:03→20:26)
[2021-12-05 08:32] LABS: Glucose Point of Care 276 mg/dL (70-110)
[2021-12-05] MEDS: docusate sodium 100 mg Capsule PO ×2 (09:06→18:06)
[2021-12-05] MEDS: amiodarone 200 mg Tablet PO (09:06)
[2021-12-05] MEDS: atorvastatin 40 mg Tablet PO (09:06)
[2021-12-05] MEDS: metoprolol tartrate 50 mg Tablet PO ×2 (09:06→18:06)
[2021-12-05] MEDS: methIMAzole 5 MG Tablet 2.5 MG PO (09:06)
[2021-12-05] MEDS: sacubitril/valsartan 24-26 mg Tablet 1 EACH PO ×2 (09:06→18:06)
[2021-12-05] MEDS: famotidine 20 mg Tablet PO ×2 (09:07→18:06)
[2021-12-05] MEDS: insulin lispro 100 unit/1 mL SUBCUT ×3 (09:09→18:06)
[2021-12-05 09:10] LABS: Adenovirus Not Detected (NOT DETECT); Chlamydia Pneumoniae Not Detected (NOT DETECT); Coronavirus 229E,HKU1,NL63,OC4 Detected (NOT DETECT); Human Metapneumovirus Not Detected (NOT DETECT); Human Rhinovirus/Enterovirus Not Detected (NOT DETECT); Influenza A Not Detected (NOT DETECT); Influenza A H1 Not Detected (NOT DETECT); Influenza A H1-2009 Not Detected (NOT DETECT); Influenza A H3 Not Detected (NOT DETECT); Influenza B Not Detected (NOT DETECT); Mycoplasma Pneumoniae Not Detected (NOT DETECT); Parainfluenza Virus Type 1 Not Detected (NOT DETECT); Parainfluenza Virus Type 2 Not Detected (NOT DETECT); Parainfluenza Virus Type 3 Not Detected (NOT DETECT); Parainfluenza Virus Type 4 Not Detected (NOT DETECT); Respiratory Syncytial Virus A Not Detected (NOT DETECT); Respiratory Syncytial Virus B Not Detected (NOT DETECT); SARS-COV-2 Not Detected (NOT DETECT)
[2021-12-05 12:18] LABS: Glucose Point of Care 249 mg/dL (70-110)
--- NOTE | 2021-12-05 13:27 | PC.NURSE ---
Patient refused IV placement necessary for IV medications. Will attempt again.
[2021-12-05] MEDS: FUROsemide 10 mg/mL SDV 4mL 40 MG IVP ×2 (14:13→23:00)
--- NOTE | 2021-12-05 15:47 | PC.NURSE ---
Ultra Sound guided IV insertion done. One attempt, 18 gauge. Pt tolerated well.
[2021-12-05 18:03] LABS: Glucose Point of Care 158 mg/dL (70-110)
--- NOTE | 2021-12-05 19:02 | PC.NURSE ---
Patient transferred to 2nd floor room 264. Patient resting in room on 4 L NC. Staff notified at desk of patient arrival and chart left at desk.
[2021-12-05 20:59] LABS: Glucose Point of Care 242 mg/dL (70-110)
[2021-12-05] MEDS: insulin glargine 100 units/1 mL 10 UNIT SUBCUT (21:49)
[2021-12-06] VITALS (9 sets, daily range): BP systolic 124–168; BP diastolic 70–75; PULSE 59–91; RESP 17–30; TEMP 36.3–36.5; O2SAT 91–96
[2021-12-06] MEDS: aspirin 81 mg EC Tablet PO (05:12)
[2021-12-06] MEDS: methIMAzole 5 MG Tablet 2.5 MG PO (05:12)
[2021-12-06 05:15] LABS: ABG PH Result 7.44 (7.35-7.45); Arterial Blood Gas Hematocrit 41.5 % (42-52); Base Excess ABG 24.8 mmol/L (-2.0-2.0); Blood Gas Allen Test Pos; Blood Gas Sample Type Arterial; HCO3 ABG 54.3 mmol/L (22-26)
[2021-12-06 05:16] LABS: Blood Gas Sample Site Radial, right; Oxygen Device NC
[2021-12-06 05:18] LABS: ABG PCO2 79.8 mmHg (35-45)
[2021-12-06 07:19] LABS: Basophils % 0.1 %; Hematocrit 40.7 % (42.0-52.0); Hemoglobin 12.9 g/dL (11.7-16.6); Lymphocytes # 0.3 10^3/uL (0.8-4.8); Lymphocytes % 3.8 %; Mean Corpuscular HGB Conc 31.7 g/dL (30.0-36.0); Mean Corpuscular Hemoglobin 28.5 pg (28.0-34.0); Mean Corpuscular Volume 89.8 fl (80-94); Mean Platelet Volume 10.3 fL (7.4-10.4); Monocytes # 0.3 10^3/uL (0.2-0.9); Monocytes % 3.9 %; Neutrophils # 6.76 10^3/uL (1.8-7.7); Neutrophils % 91.4 %; Nucleated Red Blood Cells % 0 %; Platelet Count 272 10^3/cmm (130-400); Red Blood Count 4.53 10^6/uL (4.1-5.3); Red Cell Distribution Width 16.9 % (12.1-15.1); White Blood Count 7.4 10^3/uL (4.0-10.0)
[2021-12-06 07:25] LABS: Lactate (Lactic Acid level) 0.7 mmol/L (0.5-2.2)
[2021-12-06 07:33] LABS: Alanine Aminotransferase 12 U/L (0-41); Albumin Level 3.6 g/dL (3.5-5.2); Alkaline Phosphatase 83 IU/L (40-130); Anion Gap 8.8 (5-19); Aspartate Amino Transferase 10 U/L (0-40); Blood Urea Nitrogen 31 mg/dL (8-23); C Reactive Protein 6.2 mg/L (0.0-4.9); Chloride 80 mmol/L (98-107); Globulin 2.5 g/dL (1.3-4.6); Glomerular Filtration Rate 97.3 mL/min (90-130); Glucose 232 mg/dL (65-115); Osmolality Calculated 292 mOsm/kg (285-295); Phosphorus 3.2 mg/dL (2.5-4.5); Potassium 3.8 mmol/L (3.5-5.1); Sodium 134 mmol/L (136-145); Total Bilirubin 0.2 mg/dL (0.15-1.2); Total Protein 6.1 g/dL (6.6-8.7)
[2021-12-06 07:35] LABS: Carbon Dioxide 49 mmol/L (22-29)
[2021-12-06 07:45] LABS: NT Pro B Type Natriuretic Pept 456 pg/mL (0-125); Procalcitonin 0.06 ng/mL (0-0.5)
--- NOTE | 2021-12-06 09:42 | PC.CHAP ---
Pastoral Care Encounter/Spiritual Assessment Type of Contact [] Declined certified prosthetist vice president visit [] Patient/Family/Request visit [] Outpatient visit [] Follow-up visit [] Physician referral [] Code/Alert [x] Routine visit [] Staff referral [] Actively dying [] Patient sleeping [] Family support [] [] Out of room [] Palliative care [] [] Receiving care in room [] Pre-surgical visit [] Trauma [] Long length of stay [] ICU visit [] Other: Relational/Emotional Strength [] Patient feels connected with others/family/visitors/staff [] Distress [] Loneliness/isolation [] Abandonment Spirituality of Patient [] Person of Margret [] Attends Christian of their Margret [] Believes in Prayer [] Reads Bible or Taoism materials [] There are Spiritual issues to be addressed Crew Person Interventions [x] Prayer [] Active listening [] Non-anxious presence [] Spiritual/emotional support [] Crisis/trauma care [] Spiritual counseling [] Bereavement support [] Provided bereavement packet [] Provided Bible/devotional materials [] Provided toy/stuffed animal, coloring book to patient or family member [] Provided Communion [] Anointing/[place] [] Salvation [x] Completed spiritual assessment [] Other: Impact on Illness or Injury [] Angry [] Fearful [] Anxious [] Often cries [] Exhaustion [] Unable to work [] Unable to attend moravian [] Unable to walk/stand [] Unable to read [] Unable to drive [] Unable to eat/drink [] Unable to sleep [] Unable to be with family [] Patient intubated [] Other: Summary Time spent with patient
[2021-12-06] MEDS: ipratropium-albuterol 3 mL Neb INHALATION ×2 (09:48→13:53)
[2021-12-06] MEDS: budesonide 0.5 mg/2 mL Neb INHALATION (09:48)
[2021-12-06] MEDS: docusate sodium 100 mg Capsule PO (10:09)
[2021-12-06] MEDS: metoprolol tartrate 50 mg Tablet PO (10:09)
[2021-12-06] MEDS: sacubitril/valsartan 24-26 mg Tablet 1 EACH PO (10:09)
[2021-12-06] MEDS: atorvastatin 40 mg Tablet PO (10:10)
[2021-12-06] MEDS: insulin lispro 100 unit/1 mL SUBCUT ×2 (10:10→12:34)
[2021-12-06] MEDS: famotidine 20 mg Tablet PO (10:10)
[2021-12-06] MEDS: amiodarone 200 mg Tablet PO (10:10)
[2021-12-06] MEDS: FUROsemide 10 mg/mL SDV 4mL 40 MG IVP (10:10)
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
[2021-12-06 12:19] LABS: Glucose Point of Care 266 mg/dL (70-110)
--- NOTE | 2021-12-06 16:17 | PC.NURSE ---
PATIENT VERBALIZED UNDERSTANDING OF DISCHARGE INSTRUCTIONS, HOME MEDICATIONS, AND FOLLOW UP APPOINTMENTS. PT WHEELED TO THE MAIN ENTRANCE AND LEFT VIA PRIVATE VEHICLE.
== END 2021-12-06 16:20 | disposition home or self-care (01) | DRG 291 ==
LOC: ER 23:53 → ICU 12-05 02:09 → MEDSURG 12-05 19:06
PROVIDERS: Student in an Organized Health Care Education/Training Program; Admitting Provider Family Medicine; Emergency Provider Emergency Medicine; PCP Physician Assistant; Visit Provider Internal Medicine
DX: I13.0 Hypertensive heart and chronic kidney disease with heart failure and stage 1 through stage 4 chronic kidney disease, or unspecified chronic kidney disease (principal); I50.33 Acute on chronic diastolic (congestive) heart failure; J96.22 Acute and chronic respiratory failure with hypercapnia; J96.21 Acute and chronic respiratory failure with hypoxia; N18.2 Chronic kidney disease, stage 2 (mild); E11.22 Type 2 diabetes mellitus with diabetic chronic kidney disease; B97.29 Other coronavirus as the cause of diseases classified elsewhere; Z86.16 Personal history of COVID-19; J44.9 Chronic obstructive pulmonary disease, unspecified; I48.91 Unspecified atrial fibrillation; Z99.81 Dependence on supplemental oxygen; I25.10 Atherosclerotic heart disease of native coronary artery without angina pectoris; I25.2 Old myocardial infarction; F17.210 Nicotine dependence, cigarettes, uncomplicated; G47.33 Obstructive sleep apnea (adult) (pediatric); Z87.01 Personal history of pneumonia (recurrent); I35.0 Nonrheumatic aortic (valve) stenosis; Z79.51 Long term (current) use of inhaled steroids; Z79.4 Long term (current) use of insulin
CPT/HCPCS: 36415; 36416; 36600; 71045; 80053; 82803; 82805; 82962; 83036; 83605; 83735; 83880; 84100; 84145; 84443; 84484; 85025; 85378; 86140; 86403; 87040; 87070; 87205; 87426; 87449; 87635; 87804; 93005; 93306; 94640; 94660; 96365; 96372; 96375; 96376; 99285; J1815 ×2; J1940; J2920; J7626

== ENCOUNTER 2021-12-16 12:34 | Inpatient (IN) | payer MEDICARE, MEDICAID, SELFPAY ==
[2021-12-16] VITALS (61 sets, daily range): BP systolic 82–195; BP diastolic 52–132; PULSE 37–66; RESP 9–20; TEMP 36.1–36.6; O2SAT 65–100; BMI 29.9
--- NOTE | 2021-12-16 12:43 | XR_ITS ---
WS: [id number] PORTABLE CHEST HISTORY: dyspnea/cough COMPARISON: 12/04/2021 Increase in bilateral opacifications in the mid and lower lung [place]. Alveolar consolidations tool inspector ior to the RIGHT heart and at the LEFT lung base. Additional mild haziness in the central lungs. Mild blunting of the costophrenic angles. Cardiac size: Normal. Mediastinum/Aorta: Mild atherosclerosis aorta. Increased density in the region of the LEFT axillary pouch likely loose body or calcification. Seen o n prior studies also. XR/XR chest 1V portable 12095 IMPRESSION: 1. Progression of opacifications and consolidations in the mid and lower lung [place] since 12/04/2021. 2. Very tiny bilateral pleural effusions versus pleural thickening are new.
--- NOTE | 2021-12-16 12:44 | ECG_ITS ---
[facility] Test Date: 2021-12-16 Pat Name: Nagi Cuellar Department: Room: Gender: Male Hand Roller: : 1955 Requested By: Nagi Arita Order Number: [id number] Reading MD: ADAN ENRIQUEZ Measurements Intervals [place] Rate: 45 P: 36 MT: 200 QRS: 59 QRSD: 113 T: 62 QT: 500 QTc: 433 Interpretive Statements SINUS BRADYCARDIA INCOMPLETE RIGHT BUNDLE BRANCH BLOCK [90+ ms QRS DURATION, TERMINAL R IN V1/V2, 40+ ms S IN I/aVL/V4/V5/V6] Compared to ECG 12/05/2021 06:32:42 Sinus rhythm no longer present Ventricular premature complex(es) no longer present Electronically Signed On 12-16-2021 21:47:49 CORPORATE DEVELOPMENT ANALYST by ADAN ENRIQUEZ [email or web address]
[2021-12-16 12:45] LABS: Glucose Point of Care 334 mg/dL (70-110)
[2021-12-16 12:45] LABS: Glucose Point of Care 99 mg/dL (70-110)
--- NOTE | 2021-12-16 12:46 | W.ED.AMS ---
HPI - Altered Mental Status General: Chief Complaint: Altered Mental Status Stated Complaint: AMS Time Seen by Provider: 12/16/21 12:37 Source: patient Mode of arrival: EMS Limitations: altered mental status History of Present Illness: 66-year-old male arrives by EMS. Patient is a known history of diabetes COPD and CHF. He has hypercapnic respiratory failure which is chronic. He was found at [facility] they are trying to get him out to his car he became less less responsive and EMS was called initially reported hypoglycemia which he treated with an epi D50 and began giving him D10 he has improved some and his blood sugar here is in the 90s I seen this patient multiple times before in the past when he arrives here he awakens and is able to recognize me he remembers where he was at. He notes that he is having difficulty breathing. He denies any chest pain. MD complaint: altered mental status, confusion and decreased responsiveness Onset (ago): minute(s) Severity: moderate Consistency of symptoms: Waxing and Waning Context: history of similar presentation, diabetes and COPD Associated symptoms: Reports no associated symptoms Treatments prior to arrival: glucose Review of Systems General: Reports: ROS unobtainable due to mental status [facility] ED PFSH: Medical History Atrial fibrillation paroxysmal long-standing; not on anticoagulation due to history GI bleed 2018 while on eliquis CAD (coronary artery disease) CHF (congestive heart failure) 12/05/2021 EF 65% with grade 1 diastolic dysfunction Chronic kidney disease, stage II (mild) Chronic respiratory failure with hypoxia COPD (chronic obstructive pulmonary disease) Gold Class D, centrolobular Cor pulmonale COVID-19 (~09/2021) Diabetes GERD (gastroesophageal reflux disease) History of Khan's palsy History of GI bleed (~2018) While on eliquis History of PFTs 03/2020 obstructive and restrictive components described History of sleep study (~2012) Hyperlipidemia Hypertension Hyperthyroidism Nicotine addiction DAYNE (obstructive sleep apnea) Surgical History H/O hernia repair (~2015) ventral incisional with repair x 2, in 2016 with mesh and lysis of adhesions History of cardiac catheterization (~07/2021) patent stent per report History of colonoscopy History of coronary artery stent placement x 2 LAD (2005, 2010) History of endoscopy small bowel capsule History of esophagogastroduodenoscopy (EGD) Family History Mother Lung disease COPD Sister Cancer Social History Smoking and tobacco status: current some day smoker cigarettes Years cigarettes smoked: 47 [ Other cigarette details: Hx of 2PPD x 47 Years] Second hand smoke exposure: Yes Alcohol intake: current Alcohol intake frequency: holidays/special occasions only Caregiver/support person: Yes Lives independently: Yes Household members: none Marital status: Single Current occupational status: disabled and 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 Current gender identity: Male Physical Exam Const: EXAM LIMITATIONS: altered mental status GENERAL APPEARANCE: disheveled and lethargic ORIENTATION/CONSCIOUSNESS: Yes lethargic HENMT: COMMON NORMALS: normocephalic, atraumatic and hearing grossly normal bilaterally HEAD & SCALP: normocephalic and atraumatic Eye: COMMON NORMALS: Equal, round and reactive pupils present, EOMs intact bilaterally and conjunctivae normal CONJUNCTIVA: Yes conjunctivae normal PUPIL: Yes Equal, round and reactive pupils present Neck/C-Spine: COMMON NORMALS: full ROM and no lymphadenopathy Resp: EFFORT & INSPECTION: Yes respiratory distress and Yes labored AUSCULTATION: crackles, wheezes and diminished lung sounds Cardio: RATE: bradycardic RHYTHM: abnormal rhythm regularly irregular GI: COMMON NORMALS: negative for No hepatosplenomegaly present AUSCULTATION: Yes normoactive bowel sounds PALPATION: No Tenderness to palpation present (GI), No Guarding due to palpation present (GI) and No No hepatosplenomegaly present : COMMON NORMALS: Yes no CVA tenderness BLADDER/KIDNEY EXAM: Yes no CVA tenderness Back/Pelvis: COMMON NORMALS: no CVA tenderness Extremity: GENERAL: Yes edema Neuro: SENSORIUM/ORIENTATION: Yes lethargic Course Vital Signs: Vital signs: Vital Signs Temperature 99 F 12/19/21 07:30 Pulse Rate 133 H 12/21/21 06:01 Respiratory Rate 13 12/21/21 06:01 Blood Pressure 139/102 12/21/21 06:01 Pulse Oximetry 92 12/21/21 06:01 MDM - Altered Mental Status Medical Decision Making Metabolic encephalopathy with acute respiratory failure with hypercapnia acute on chronic. Also patient has underlying pneumonia previous diagnosis of COVID in September 2021 and repeat Abdi positive PCR test in late November 2021. Discussed with hospitalist orders written patient currently in BiPAP. Patient will be placed in the ICU. Antibiotic started for possible secondary pneumonia. Lab Data : 12/21/21 03:17 12/21/21 03:[address] 12/16/21 17:22 IMPRESSION: 1. No acute intracranial abnormality. 2. Mild sinusitis and bilateral mastoiditis. Chest X-Ray 12/20/21 07:17 IMPRESSION: 1. Stable cardiomegaly. 2. Small bilateral pleural effusions. Slight bibasilar atelectasis. Improved aeration LEFT lower lobe today. Laboratory Results WBC 10.5 10^3/uL (4.0-10.0) H 12/16/21 12:39 RBC 4.38 10^6/uL (4.1-5.3) 12/16/21 12:39 Hgb 12.6 g/dL (11.7-16.6) 12/16/21 12:39 Hct 41.5 % (42.0-52.0) L 12/16/21 12:39 MCV 94.7 fl (80-94) H 12/16/21 12:39 MCH 28.8 pg (28.0-34.0) 12/16/21 12:39 MCHC 30.4 g/dL (30.0-36.0) 12/16/21 12:39 RDW 17.4 % (12.1-15.1) H 12/16/21 12:39 Plt Count 219 10^3/cmm (130-400) 12/16/21 12:39 MPV 11.2 fL (7.4-10.4) H 12/16/21 12:39 Neut % (Auto) 85.9 % 12/16/21 12:39 Lymph % (Auto) 4.9 % 12/16/21 12:39 Stephenson % (Auto) 6.5 % 12/16/21 12:39 Eos % (Auto) 0.4 % 12/16/21 12:39 Baso % (Auto) 0.9 % 12/16/21 12:39 Neut # (Auto) 8.98 10^3/uL (1.8-7.7) H 12/16/21 12:39 Lymph # (Auto) 0.5 10^3/uL (0.8-4.8) L 12/16/21 12:39 Stephenson # (Auto) 0.7 10^3/uL (0.2-0.9) 12/16/21 12:39 Eos # (Auto) 0.0 10^3/uL (0.0-0.8) 12/16/21 12:39 Baso # (Auto) 0.1 10^3/uL (0.0-0.1) 12/16/21 12:39 Nucleated RBC % (auto) 0 % 12/16/21 12:39 Nucleated RBCs # 0.0 /100WBC 12/16/21 12:39 Specimen Type Arterial 12/16/21 14:10 Sample Site Brachial, right 12/16/21 14:10 ABG pH 7.20 (7.35-7.45) L 12/16/21 14:10 ABG pCO2 106.0 mmHg (35-45) H* 12/16/21 14:10 ABG pO2 82.3 mmHg (80.0-100.0) 12/16/21 14:10 ABG HCO3 41.1 mmol/L (22-26) H 12/16/21 14:10 ABG O2 Saturation 94.8 12/16/21 14:10 ABG Base Excess 8.9 mmol/L (-2.0-2.0) H 12/16/21 14:10 Gee Test N/a 12/16/21 14:10 A-a O2 Gradient 10.1 mmHg (5-10) H 12/16/21 14:10 Hematocrit 39.9 % (42-52) L 12/16/21 14:10 Hgb O2 Saturation 87.2 % (95-100) L 12/16/21 14:10 Carboxyhemoglobin 6.8 %THgb (0.4-20.1) 12/16/21 14:10 Methemoglobin 1.1 % (0.4-1.5) 12/16/21 14:10 Total Hemoglobin 13.0 g/dL (14-18) L 12/16/21 14:10 Sodium 141.0 mmol/L (131-143) 12/16/21 14:10 Potassium 4.7 mmol/L (3.5-5.0) 12/16/21 14:10 Glucose 57.0 mg/dL (70-115) L 12/16/21 14:10 Ionized Calcium 1.3 mmol/L (1.1-1.4) 12/16/21 14:10 O2 Delivery Device Bipap 12/16/21 14:10 O2 Liters/Min 4.0 % 12/16/21 12:59 FiO2 40.0 % 12/16/21 14:10 PEEP 8.0 cmH20 12/16/21 14:10 Senior Sustainability Consultant ID [facility] 12/16/21 14:10 Sodium 137 mmol/L (136-145) 12/16/21 12:39 Potassium 4.5 mmol/L (3.5-5.1) 12/16/21 12:39 Chloride 96 mmol/L (98-107) L 12/16/21 12:39 Carbon Dioxide 33 mmol/L (22-29) H 12/16/21 12:39 Anion Gap 12.5 (5-19) 12/16/21 12:39 BUN 19 mg/dL (8-23) 12/16/21 12:39 Creatinine 0.7 mg/dL (0.7-1.2) 12/16/21 12:39 GFR Calculation 113.5 mL/min (90-130) 12/16/21 12:39 Glucose 290 mg/dL (65-115) H 12/16/21 12:39 POC Glucose 99 mg/dL (70-110) 12/16/21 12:41 Calculated Osmolality 297 mOsm/kg (285-295) H 12/16/21 12:39 Lactic Acid 0.5 mmol/L (0.5-2.2) 12/16/21 12:39 Calcium 7.9 mg/dL (8.5-10.5) L 12/16/21 12:39 Magnesium 1.7 mg/dL (1.7-2.3) 12/16/21 15:32 Total Bilirubin 0.2 mg/dL (0.15-1.2) 12/16/21 12:39 AST 19 U/L (0-40) 12/16/21 12:39 ALT 18 U/L (0-41) 12/16/21 12:39 Alkaline Phosphatase 82 IU/L (40-130) 12/16/21 12:39 Creatine Kinase 43 U/L (39-308) 12/16/21 12:39 Troponin T Baseline 51 ng/L (0-15) H 12/16/21 12:39 Troponin T 120 Minute 46.75 ng/L (0-15) H 12/16/21 15:32 Delta Troponin T -4.25 ABS# (0-10) L 12/16/21 15:32 NT-Pro-B Natriuret Pep 1275 pg/mL (0-125) H 12/16/21 12:39 Total Protein 5.3 g/dL (6.6-8.7) L 12/16/21 12:39 Albumin 3.7 g/dL (3.5-5.2) 12/16/21 12:39 Globulin 1.6 g/dL (1.3-4.6) 12/16/21 12:39 Lipase 25 U/L (13-60) 12/16/21 15:32 Procalcitonin 0.09 ng/mL (0-0.5) 12/16/21 12:39 TSH 0.69 uIU/mL (0.27-4.20) 12/16/21 12:39 Free T4 1.43 ng/dL (0.82-1.77) 12/16/21 12:39 Free T3 2.2 PG/ML (2.0-4.4) 12/16/21 12:39 Digoxin 0.3 ng/mL (0.6-1.2) L 12/16/21 12:39 Discharge Plan Discharge Patient Disposition: Admitted As Inpatient Admit Provider: Dorys Rogers Clinical Impression: Acute on chronic respiratory failure with hypoxia and hypercapnia, CAD (coronary artery disease), CHF (congestive heart failure), Pneumonia, Bradycardia, Diabetes mellitus, type II, Acute metabolic encephalopathy, Hypoglycemia Condition: Stable Coding Level of Care Code ED Account Development Manager for Chg Fwd Exam Comprehensive
[2021-12-16 12:51] LABS: Basophils # 0.1 10^3/uL (0.0-0.1); Basophils % 0.9 %; Eosinophils % 0.4 %; Hematocrit 41.5 % (42.0-52.0); Hemoglobin 12.6 g/dL (11.7-16.6); Lymphocytes # 0.5 10^3/uL (0.8-4.8); Lymphocytes % 4.9 %; Mean Corpuscular HGB Conc 30.4 g/dL (30.0-36.0); Mean Corpuscular Hemoglobin 28.8 pg (28.0-34.0); Mean Corpuscular Volume 94.7 fl (80-94); Mean Platelet Volume 11.2 fL (7.4-10.4); Monocytes # 0.7 10^3/uL (0.2-0.9); Monocytes % 6.5 %; Neutrophils # 8.98 10^3/uL (1.8-7.7); Neutrophils % 85.9 %; Nucleated Red Blood Cells % 0 %; Platelet Count 219 10^3/cmm (130-400); Red Blood Count 4.38 10^6/uL (4.1-5.3); Red Cell Distribution Width 17.4 % (12.1-15.1); White Blood Count 10.5 10^3/uL (4.0-10.0)
[2021-12-16 13:10] LABS: ABG PH Result 7.24 (7.35-7.45); Arterial Blood Gas Hematocrit 38.8 % (42-52); Base Excess ABG 9.5 mmol/L (-2.0-2.0); Blood Gas Operator Identificat AMH; Blood Gas Sample Site Brachial, right; Blood Gas Sample Type Arterial; Carboxyhemoglobin 7.1 %THgb (0.4-20.1); HCO3 ABG 40.6 mmol/L (22-26); HGB O2 Sat 86.3 % (95-100); Ionized Calcium Level - ABG 1.2 mmol/L (1.1-1.4); Oxygen Device NC; Oxygen Saturation ABG 93.9; PO2 ABG 74.8 mmHg (80.0-100.0); Potassium Level - ABG 4.4 mmol/L (3.5-5.0); Total Hemoglobin 12.6 g/dL (14-18)
[2021-12-16 13:11] LABS: ABG PCO2 95.8 mmHg (35-45)
[2021-12-16 13:15] LABS: Troponin(5th) Baseline 51 ng/L (0-15)
[2021-12-16 13:17] LABS: Alanine Aminotransferase 18 U/L (0-41); Albumin Level 3.7 g/dL (3.5-5.2); Alkaline Phosphatase 82 IU/L (40-130); Blood Urea Nitrogen 19 mg/dL (8-23); Calcium 7.9 mg/dL (8.5-10.5); Carbon Dioxide 33 mmol/L (22-29); Chloride 96 mmol/L (98-107); Creatine Phosphokinase 43 U/L (39-308); Globulin 1.6 g/dL (1.3-4.6); Glomerular Filtration Rate 113.5 mL/min (90-130); Glucose 290 mg/dL (65-115); NT Pro B Type Natriuretic Pept 1275 pg/mL (0-125); Osmolality Calculated 297 mOsm/kg (285-295); Sodium 137 mmol/L (136-145); Total Bilirubin 0.2 mg/dL (0.15-1.2); Total Protein 5.3 g/dL (6.6-8.7)
[2021-12-16 13:20] LABS: Anion Gap 12.5 (5-19); Aspartate Amino Transferase 19 U/L (0-40); Potassium 4.5 mmol/L (3.5-5.1)
--- NOTE | 2021-12-16 13:34 | P.HP_ITS ---
Providers/Chief Complaint Admitting Physician: Dorys Rogers MD Primary Care Provider: Nasreen Gomez Chief Complaint: AMS History of Present Illness Nagi Cuellar is a 66 year old male who presented to the emergency room after he was noted to have decreased responsiveness in the parking lot at [facility]. His blood sugar was low when he did receive an amp of D50 and was started on some D10 in route. Blood sugars were improved upon arrival here but he remained lethargic. ABG showed 7.24/95.8/74.8/40.6 on usual 4 L of oxygen by nasal cannula. Patient was placed on BiPAP. He did awaken initially and described difficulty breathing. He did not have any reports of chest pain. No fever. He was recently hospitalized at the end of November when he was found to have a [id number] coronavirus. He actually had SARS-CoV-2 in September 2021. He denied fever but admitted to being more tired. He had cough sometimes with sputum. No report of any vomiting or diarrhea. Review of systems was limited due to respiratory status but responses obtained are as noted below. In addition to respiratory difficulties, he was noted to be bradycardic with heart rate in the 40s. Known to be on beta-blockade chronically as well as amiodarone. Despite BiPAP therapy, patient continued to worsen with follow-up ABG showing 7.20/105. He was subsequently intubated. Heart rate remained low as much as into the mid 30s. Blood pressure was quite variable ranging from a low in the mid 80s systolic to a high in the 190s. 12-lead EKG showed sinus bradycardia. Clinically patient appears to be volume overloaded with area of what appeared to be more consolidation on the right and was given Lasix as well as broad-spectrum antibiotics. Low-dose dopamine was initiated for bradycardia. Hypoglycemia also recurred. Mr. Cuellar is being admitted to the ICU for continued care. I will note that he has a history of COPD, diastolic CHF, cor pulmonale, obstructive sleep apnea on home BiPAP among other diagnoses listed below but has not required intubation for at least the past 2 years if not longer. No report of any over or under use of medications or recent medication changes was obtained. No history of drug use. History is obtained primarily from prior knowledge of patient from previous admissions, review of records, discussion with ED provider, review of nursing notes supplementing the little bit of information I was able to get directly from him before he required intubation. He is still smoking. His oxygen device is with him in the room. Review of Systems General: Reports: Other (ROS limited due to medical condition) Const: Reports: fatigue, malaise and daytime sleepiness; Denies: fever(s) ENMT: Denies: throat pain Card: Reports: edema and swelling of feet/ankles; Denies: chest pain Resp: Reports: dyspnea, productive cough and non-productive cough GI: Denies: abdominal pain, vomiting or diarrhea : Reports: oliguria Musc: Denies: neck pain or extremity pain Skin/Breast: Denies: pruritus or sores Neuro: Reports: weakness in extremities (all over, not one sided) and confusion; Denies: headache(s) Endo: Reports: tired all the time Dov/Lymph: Reports: easy bruising Medications/Allergies Home Medications Medication Instructions Recorded Confirmed Last Taken Type omeprazole 40 mg capsule,delayed 40 mg PO QAM 07/18/21 12/16/21 11/02/21 History release sitagliptin 50 mg tablet (Januvia) 50 mg PO QAM tab 07/23/21 12/16/21 11/02/21 History Vitamin B12 Gummies 1 - 2 tab PO DAILY 08/02/21 12/16/21 11/02/21 History aspirin 81 mg tablet,delayed 81 mg PO QAM 08/12/21 12/16/21 11/02/21 History release benzonatate 100 mg capsule 100 mg PO TID PRN #14 cap 08/17/21 12/16/21 Unknown Rx insulin glargine 100 unit/mL (3 20 unit SUBCUT BEDTIME ml 09/21/21 12/16/21 11/01/21 History mL) subcutaneous pen (Lantus Solostar U-100 Insulin) trazodone 50 mg tablet 100 mg PO BEDTIME tab 09/21/21 12/16/21 11/01/21 History rosuvastatin 20 mg tablet 10 mg PO DAILY 10/01/21 12/16/21 11/01/21 History sacubitril 24 mg-valsartan 26 mg 1 tab PO BID 11/26/21 02/10/22 12/28/21 History tablet (Entresto) furosemide 40 mg tablet 40 mg PO DAILY #0 tab 10/08/21 12/16/21 11/02/21 Rx revefenacin 175 mcg/3 mL solution 175 mcg (3 mL) INHALATION DAILY 10/15/21 12/16/21 11/02/21 Rx for nebulization (Yupelri) #90 ml insulin lispro 100 unit/mL See Rx Instructions .ROUTE 11/02/21 12/16/21 Unknown History subcutaneous pen (Humalog KwikPen .COMPLEX MDD see pharmacy comment (U-100) Insulin) albuterol sulfate 90 mcg/actuation 1 inh INHALATION Q6H PRN #8.5 g 12/01/21 12/16/21 Unknown Rx aerosol inhaler formoterol fumarate 20 mcg/2 mL 2 ml INHALATION BID #120 ml 12/01/21 12/16/21 Unknown Rx solution for nebulization (Perforomist) ipratropium 20 mcg-albuterol 100 1 puff INHALATION Q6H #4 g 12/01/21 12/16/21 Unknown Rx mcg/actuation mist for inhalation (Combivent Respimat) metoprolol tartrate 50 mg tablet 50 mg PO BID 90 Days #180 tab 12/01/21 12/16/21 Unknown Rx potassium chloride 20 mEq 20 meq PO DAILY 12/01/21 12/16/21 Unknown History tablet,extended release(part/cryst) methimazole 5 mg tablet 5 mg PO QAM #0 tab 12/06/21 12/16/21 11/02/21 Rx amiodarone 200 mg tablet (Pacerone) 200 mg PO DAILY 12/16/21 12/16/21 Unknown History Allergies Allergy/AdvReac Type Severity Reaction Status Date / Time No Known Allergies Allergy Verified 12/16/21 13:50 Additional Medication Information Reviewed available records and external pharmacy information; no obvious recent change in amiodarone or beta sweetie dosing. Looks like metoprolol was started in 07/2021 at 25mg bid then increased in 09/2021 to 50mg bid. Had been on dig back in 04/2021. PFSH Acute PFSH: Medical History (Updated 12/16/21 @ 22:11 by Dorys Rogers MD) Atrial fibrillation paroxysmal long-standing; not on anticoagulation due to history GI bleed 2018 while on eliquis CAD (coronary artery disease) CHF (congestive heart failure) 12/05/2021 EF 65% with grade 1 diastolic dysfunction Chronic kidney disease, stage II (mild) Chronic respiratory failure with hypoxia COPD (chronic obstructive pulmonary disease) Gold Class D, centrolobular Cor pulmonale COVID-19 (~09/2021) Diabetes GERD (gastroesophageal reflux disease) History of Khan's palsy History of GI bleed (~2018) While on eliquis History of PFTs 03/2020 obstructive and restrictive components described History of sleep study (~2012) Hyperlipidemia Hypertension Hyperthyroidism Nicotine addiction DAYNE (obstructive sleep apnea) Surgical History (Updated 12/16/21 @ 19:23 by Dorys Rogers MD) H/O hernia repair (~2015) ventral incisional with repair x 2, in 2016 with mesh and lysis of adhesions History of cardiac catheterization (~07/2021) patent stent per report History of colonoscopy History of coronary artery stent placement x 2 LAD (2005, 2010) History of endoscopy small bowel capsule History of esophagogastroduodenoscopy (EGD) Family History Mother Lung disease COPD Sister Cancer Social History (Updated 12/16/21 @ 18:25 by Dorys Rogers MD) Smoking and tobacco status: current some day smoker cigarettes Years cigarettes smoked: 47 [ Other cigarette details: Hx of 2PPD x 47 Years] Second hand smoke exposure: Yes Alcohol intake: current Alcohol intake frequency: holidays/special occasions only Caregiver/support person: Yes Lives independently: Yes Household members: none Marital status: Single 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 Acutely and chronically ill appearing. Later intubated and sedated. HEENT: Normocephalic, pupils pinpoint when unable to arouse but 6-8 mm and sluggishly reactive bilaterally upon arousal, unable to visualize oropharynx Neck: Supple Respiratory: Coarse breath sounds and wheezes bilaterally, papdoxical abdominal respirations while on bipap Cardiovascular: Bradycardic regular rhythm, no murmurs gallops or rubs audible but obscured by lung sounds, apical impulse displaced laterally, JVD to earlobe Abdomen: soft, rotund, non tender, positive bowel sounds, prior surgical scar Extremities: 4+ edema, legs are grossly symmetrical, no calf tenderness, puffy feet Skin: dry, pale, scattered minor abrasions and bruises, loss of hair to lower extremites and some flaking skin but no erythema noted, unable to currently vis ualize the sacral area due to respiratory conditoin Neuro:moves all extremities and speech while limited was understandable, face symmetric Psych: cooperative when awake Urinary Catheter Management: Fields: Cath Placed During This Visit: yes Urethral Indwelling: Yes Reason for Continuing Indwelling Catheter: Accurate Measurement of Urinary Output in Critically Ill Patients Urinary Catheter Date of Insertion: 12/16/21 Urinary Catheter Time of Insertion: 15:00 Data : 12/16/21 12:39 12/16/21 12:39 Other Labs: Radiologist Impressions: Last 24 hours Chest X-Ray 12/16/21 12:43 IMPRESSION: 1. Progression of opacifications and consolidations in the mid and lower lung [place] since 12/04/2021. 2. Very tiny bilateral pleural effusions versus pleural thickening are new. Chest X-Ray 12/16/21 15:17 IMPRESSION: 1. Endotracheal and nasogastric tubes are in good position. 2. RIGHT IJ line in good position with the tip terminating near the SVC atrial junction. Head CT 12/16/21 17:22 FINDINGS: Brain: Mild white matter chronic microvascular changes are noted. No hemorrhage or evidence of acute infarction. Cerebral ventricles: No ventriculomegaly. Paranasal sinuses: Mild sinusitis changes are appreciated. Mastoid air cells: Bilateral mastoiditis is noted. Bones/joints: Unremarkable. No acute fracture. Soft tissues: Unremarkable. IMPRESSION:? 1. No acute intracranial abnormality. 2. Mild sinusitis and bilateral mastoiditis. Laboratory Results WBC 10.5 10^3/uL (4.0-10.0) H 12/16/21 12:39 RBC 4.38 10^6/uL (4.1-5.3) 12/16/21 12:39 Hgb 12.6 g/dL (11.7-16.6) 12/16/21 12:39 Hct 41.5 % (42.0-52.0) L 12/16/21 12:39 MCV 94.7 fl (80-94) H 12/16/21 12:39 MCH 28.8 pg (28.0-34.0) 12/16/21 12:39 MCHC 30.4 g/dL (30.0-36.0) 12/16/21 12:39 RDW 17.4 % (12.1-15.1) H 12/16/21 12:39 Plt Count 219 10^3/cmm (130-400) 12/16/21 12:39 MPV 11.2 fL (7.4-10.4) H 12/16/21 12:39 Neut % (Auto) 85.9 % 12/16/21 12:39 Lymph % (Auto) 4.9 % 12/16/21 12:39 [place] % (Auto) 6.5 % 12/16/21 12:39 Eos % (Auto) 0.4 % 12/16/21 12:39 Baso % (Auto) 0.9 % 12/16/21 12:39 Neut # (Auto) 8.98 10^3/uL (1.8-7.7) H 12/16/21 12:39 Lymph # (Auto) 0.5 10^3/uL (0.8-4.8) L 12/16/21 12:39 [place] # (Auto) 0.7 10^3/uL (0.2-0.9) 12/16/21 12:39 Eos # (Auto) 0.0 10^3/uL (0.0-0.8) 12/16/21 12:39 Baso # (Auto) 0.1 10^3/uL (0.0-0.1) 12/16/21 12:39 Nucleated RBC % (auto) 0 % 12/16/21 12:39 Nucleated RBCs # 0.0 /100WBC 12/16/21 12:39 Specimen Type Arterial 12/16/21 12:59 Sample Site Brachial, right 12/16/21 12:59 ABG pH 7.24 (7.35-7.45) L 12/16/21 12:59 ABG pCO2 95.8 mmHg (35-45) H* 12/16/21 12:59 ABG pO2 74.8 mmHg (80.0-100.0) L 12/16/21 12:59 ABG HCO3 40.6 mmol/L (22-26) H 12/16/21 12:59 ABG O2 Saturation 93.9 12/16/21 12:59 ABG Base Excess 9.5 mmol/L (-2.0-2.0) H 12/16/21 12:59 Gee Test N/a 12/16/21 12:59 A-a O2 Gradient 9.0 mmHg (5-10) 12/16/21 12:59 Hematocrit 38.8 % (42-52) L 12/16/21 12:59 Hgb O2 Saturation 86.3 % (95-100) L 12/16/21 12:59 Carboxyhemoglobin 7.1 %THgb (0.4-20.1) 12/16/21 12:59 Methemoglobin 1.0 % (0.4-1.5) 12/16/21 12:59 Total Hemoglobin 12.6 g/dL (14-18) L 12/16/21 12:59 Sodium 140.0 mmol/L (131-143) 12/16/21 12:59 Potassium 4.4 mmol/L (3.5-5.0) 12/16/21 12:59 Glucose 93.0 mg/dL (70-115) 12/16/21 12:59 Ionized Calcium 1.2 mmol/L (1.1-1.4) 12/16/21 12:59 O2 Delivery Device Nc 12/16/21 12:59 O2 Liters/Min 4.0 % 12/16/21 12:59 FiO2 36.0 % 12/16/21 12:59 Underground Conduit Installer ID [facility]h 12/16/21 12:59 Sodium 137 mmol/L (136-145) 12/16/21 12:39 Potassium 4.5 mmol/L (3.5-5.1) 12/16/21 12:39 Chloride 96 mmol/L (98-107) L 12/16/21 12:39 Carbon Dioxide 33 mmol/L (22-29) H 12/16/21 12:39 Anion Gap 12.5 (5-19) 12/16/21 12:39 BUN 19 mg/dL (8-23) 12/16/21 12:39 Creatinine 0.7 mg/dL (0.7-1.2) 12/16/21 12:39 GFR Calculation 113.5 mL/min (90-130) 12/16/21 12:39 Glucose 290 mg/dL (65-115) H 12/16/21 12:39 POC Glucose 99 mg/dL (70-110) 12/16/21 12:41 Calculated Osmolality 297 mOsm/kg (285-295) H 12/16/21 12:39 Calcium 7.9 mg/dL (8.5-10.5) L 12/16/21 12:39 Total Bilirubin 0.2 mg/dL (0.15-1.2) 12/16/21 12:39 AST 19 U/L (0-40) 12/16/21 12:39 ALT 18 U/L (0-41) 12/16/21 12:39 Alkaline Phosphatase 82 IU/L (40-130) 12/16/21 12:39 Creatine Kinase 43 U/L (39-308) 12/16/21 12:39 Troponin T Baseline 51 ng/L (0-15) H 12/16/21 12:39 NT-Pro-B Natriuret Pep 1275 pg/mL (0-125) H 12/16/21 12:39 Total Protein 5.3 g/dL (6.6-8.7) L 12/16/21 12:39 Albumin 3.7 g/dL (3.5-5.2) 12/16/21 12:39 Globulin 1.6 g/dL (1.3-4.6) 12/16/21 12:39 2nd ABG after being on bipap 12/16/21 14:10 ABG pH 7.20 L ABG pCO2 106.0 H* ABG pO2 82.3 ABG HCO3 41.1 H O2 Delivery Device Bipap Prior visit Laboratory Tests/Studies 12/05/21 12/05/21 12/05/21 00:20 00:37 00:37 Troponin T Baseline 36 H NT-Pro-B Natriuret Pep 695 H Procalcitonin 0.07 Influenza Type A Ag Negative 12/05/21 12/05/21 12/05/21 00:37 02:07 06:20 Hemoglobin A1c 6.6 H Troponin T 120 Minute 33.89 H Coronavirus 229E (PCR) Detected A SARS-CoV-2 (PCR) Not detected 12/05/21 06:38 TSH 0.19 L Echo 12/05/21 ?CONCLUSIONS ?1-Normal left ventricular cavity size. Normal left ventricular ?systolic function. No regional wall motion abnormalities. Left ?ventricular ejection fraction is estimated at 65 %. Grade I/IV ?diastolic dysfunction (abnormal relaxation filling pattern), ?normal to mildly elevated filling pressures. ?2-There is no pericardial effusion. ?3-No significant valve abnormalities. ?4-The right ventricle is normal in size and function.? RVSP ?could not be calculated due to incomplete tricuspid ?regurgitation velocity profile. ?5-Right atrial pressure is around 15? mm of mercury. ?6-No significant change since the prior echocardiogram study of ?07/20/2021. CT angio chest PE 10/04/21 1209 IMPRESSION: 1.? Enlarged central pulmonary arteries can be seen with pulmonary arterial hypertension. 2.? Proximal main pulmonary arteries are normal. No evidence of pulmonary embolus. 3.? Mild subpleural hazy ground glass infiltrates progressed compared to previous compatible with COVID 19 Pneumonia. 4.? Trace pleural fluid with bibasilar atelectasis right greater than left. From body of the report: Enlarged anterior mediastinal lymph node or substernal thyroid nodule measuring 1.7 cm unchanged from previous. Coronary arteriogram 08/05/2021 Conclusions ? 1. Patent prior proximal LAD stent.. PFTs 03/26/2020 INTERPRETATION: The pulmonary function tests are consistent with moderate obstruction.? There is also moderate restriction. Lung volumes are consistent with air trapping. Gas exchange (DLCO) was not measured. Other data: Prior or outside records reviewed: reviewed recent admission notes and la bs/studies A&P Assessment and plan (1) Acute metabolic encephalopathy: Due to hypercapnea, hypoxemia, bradycardia; not initially hypoglycemic but later noted to have low blood sugar as an additional contributor. Sepsis within differential but normal lactic acid and blood pressures low normal to elevated make less likely. CT head with sinus and mastoid findings, no acute intracranial changes. No information suggesting overdose. Monitor response to treatment Status: Acute (2) Acute on chronic respiratory failure with hypoxia and hypercapnia: Due to acute on chronic obstructive and restrictive lung disease, pulmonary edema and consolidations noted on imaging. Has history of recurrent admissions for same, but has not required intubation in some time, hypercapnea highest degree noted in current medical record Maintain ventilatory support with appropriate sedation presently Wean as able Pulmonary toilet Steroids Diuresis Broad antibiotic coverage Blood and Sputum cultures Status: Acute (3) Bradycardia: Chronically on amiodarone and betablockade due to atrial fibrillation history, no recent medication changes apparent No report of overdose on cardiac medications, but especially with associated hypoglycemia is a consideration Has persisted despite adequate oxygenation Hold amiodarone and metoprolol Digoxin level was low Low dose dopamine initiated in ER with some improvement in HR to mid to upper 50s Will try glucagon and calcium if recurrent bradycardia below 50 No AV block noted on EKG, sinus bradycardia Watch for afib with RVR, known history and what he is on medications for Depending on clinical course may consider inpatient cardiology consultation; at current time anticipate at the very least a decrease in betablocker dosing Status: Acute (4) CHF (congestive heart failure): Acute on chronic diastolic, chronically on lasix/potassium and entresto, BNP more elevated than usual Home lasix presently held in lieu of IV diuresis Entresto held due to low normal blood pressures initially; can likely resume tomorrow if stable overnight Monitor urine output and renal function History of CKD Stage 2 but appears stable at present Status: Chronic Qualifiers: Heart failure chronicity: acute on chronic Heart failure type: diastolic Qualified Code(s): I50.33 - Acute on chronic diastolic (congestive) heart failure (5) Pneumonia: Right sided consolidation present on admission, has had covid within last 4 months and has known chronic lung disease, recently with positive [id number] test. WBC 10.5 with left shift and what looks to be chronic lymphopenia on review of labs. Vancomycin and Cefepime in patient with recurrent health care exposure and at risk of post viral bacterial infection Check procalcitonin Cultures collected Status: Acute (6) Coronavirus infection: [id number] infection identified 12/05/2021 via PCR testing. He had SARS-CoV-2 infection in 09/2021; did not require intubation then. Status: Acute (7) COPD (chronic obstructive pulmonary disease): Chronically on albuterol, combivent, performist, revefenacin, tesssalon perles Duoneb and budesonide Solumedrol Status: Chronic Qualifiers: COPD type: COPD with acute exacerbation Qualified Code(s): J44.1 - Chronic obstructive pulmonary disease with (acute) exacerbation (8) Diabetes mellitus, type II: Chronically on long acting and short acting insulin plus sitagliptin. Initial blood sugars in the field were low necessitating administration of D50 and D10 in route by EMS. On arrival here blood sugar was greater than 200 but he subsequently recurrent acute hypoglycemia with sugars at 60. D10W at low rate of infusion currently given pulmonary edema Starting trophic glucerna and increase as tolerates to maintain blood sugars/nutrition Holding long acting insulin Holding sitagliptin Steroids should help Glucagon if needed Serial accuchecks Status: Chronic Qualifiers: Diabetes mellitus complication detail: without coma Diabetes mellitus complication status: with hypoglycemia Diabetes mellitus intermediate project manager insulin use: with intermediate project manager use Qualified Code(s): E11.649 - Type 2 diabetes mellitus with hypoglycemia without coma; Z79.4 - FPC (current) use of insulin (9) CAD (coronary artery disease): History of stent x 2 previously, last cath in 07/2021 with patent stents, chronically on aspirin and statin Troponin above normal range but with negative delta Continue aspirin Formulary statin Monitor serial cardiac enzymes Status: Chronic Qualifiers: Associated angina: without angina Coronary Disease-Associated Artery/Lesion type: [place] artery [place] vs. transplanted heart: [place] heart Qualified Code(s): I25.10 - Atherosclerotic heart disease of [place] coronary artery without angina pectoris (10) Hypertension: On entresto, betablocker and diuretic chronically Initial blood pressures low normal range; after intubation, blood pressures as high as 190s systolic. Improved with sedation (which exacerbated bradycardia). With adjustments to sedation given, blood pressure has improved. Holding home antihypertensive agents at present time Monitor need to add antihypertensives back, especially as sedation is weaned Status: Chronic Qualifiers: Hypertension type: primary hypertension Qualified Code(s): I10 - Essential (primary) hypertension (11) Hyperthyroidism: Methimazole chronically as far back as 02/2021 if not longer; CTA of chest 09/2021 indicated possible substernal thyroid nodule versus lymph node. Continue methimazole Recheck TSH, checking free T3 and Free T4 If able to perform CTA chest, follow up to compare the substernal area nodule noted on last study Status: Chronic (12) Nicotine addiction: Status: Acute Qualifiers: Nicotine product type: cigarettes Substance use status: other nicotine- induced disorder Qualified Code(s): F17.218 - Nicotine dependence, cigarettes, with other nicotine-induced disorders (13) BMI 30.0-30.9,adult: Status: Chronic Plan Inpatient admission When stabilizes from heart rate and blood pressure standpoint, check CTA chest to eval for PE given bradycardia, hypertension, respiratory failure leading to intubation in this patient with known history atrial fibrillation not on anticoagulation Check D-dimer, PTT, PT Urinalysis sent with fields placement Lovenox for DVT prophylaxis Protonix for GI prophylaxis Stool softners Supportive care otherwise Disposition will depend on clinical course but anticipate discharge home based on prior visits; he has home oxygen via an inogen (which I am wondering if it provides adequate flow for him consistently). He also has bipap and in-home services once per week. Full code Attestations Medical Necessity Statement*: Anticipated stay greater than two midnights in gentleman with multiple comorbid condtitions as prescribed presenting with respiratory failure requiring intubation, significant bradycardia and hypoglycemia. He is on IV antibiotics, D10W, steroids, dopamine for heart rate, among other care. Necessitating ICU level care and support at this time and will requiring monitor upon improvement while medicaitons are adjusted. Critical Care Time: The high probability of a clinically significant, sudden or life threatening deterioration of the patient's respiratory, endocrine, cardiac system(s) required my full and direct attention, intervention and personal management. 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 Diagnoses Acute on chronic respiratory failure with hypoxia and hypercapnia J96.21; J96.22 CHF (congestive heart failure) I50.33 Heart failure chronicity: acute on chronic Heart failure type: diastolic Pneumonia J18.9 Coronavirus infection B34.2 Bradycardia R00.1 Diabetes mellitus, type II E11.649; Z79.4 Diabetes mellitus complication detail: without coma Diabetes mellitus complication status: with hypoglycemia Diabetes mellitus fci insulin use: with intermediate project manager use COPD (chronic obstructive pulmonary disease) J44.1 COPD type: COPD with acute exacerbation CAD (coronary artery disease) I25.10 Associated angina: without angina Coronary Disease-Associated Artery/Lesion type: [place] artery [place] vs. transplanted heart: [place] heart Hypertension I10 Hypertension type: primary hypertension Hyperthyroidism E05.90 Nicotine addiction F17.218 Nicotine product type: cigarettes Substance use status: other nicotine-induced disorder BMI 30.0-30.9,adult Z68.30 Acute metabolic encephalopathy G93.41
[2021-12-16 14:09] LABS: Digoxin 0.3 ng/mL (0.6-1.2); Magnesium 1.8 mg/dL (1.7-2.3)
[2021-12-16] MEDS: DOPamine drip 400 MG/250 ML PREMIX 15.31 MG IV (14:09)
[2021-12-16 14:22] LABS: Alveolar-Arterial Oxygen Gradi 10.1 mmHg (5-10); Arterial Blood Gas Hematocrit 39.9 % (42-52); Base Excess ABG 8.9 mmol/L (-2.0-2.0); Blood Gas Operator Identificat AMH; Blood Gas Sample Site Brachial, right; Blood Gas Sample Type Arterial; Carboxyhemoglobin 6.8 %THgb (0.4-20.1); HCO3 ABG 41.1 mmol/L (22-26); HGB O2 Sat 87.2 % (95-100); Ionized Calcium Level - ABG 1.3 mmol/L (1.1-1.4); Methemoglobin 1.1 % (0.4-1.5); Oxygen Device BIPAP; Oxygen Saturation ABG 94.8; PO2 ABG 82.3 mmHg (80.0-100.0); Potassium Level - ABG 4.7 mmol/L (3.5-5.0)
--- NOTE | 2021-12-16 15:17 | XR_ITS ---
WS: [id number] PORTABLE CHEST HISTORY: Central line placement. COMPARISON: 12/16/2021 Nasogastric and endotracheal tubes have been placed since the prior study good position. RIGHT centra l line is now present with tip terminating near the SVC atrial junction. Slightly better aeration of the lungs as compared to the most recent study. Continued consolidation a t the RIGHT lung base but improved. Small RIGHT pleural effusion. No pneumothorax. Cardiac size: Mildly enlarged cardiac silhouette. Mediastinum/Aorta: Mild atherosclerosis aorta. No osseous abnormality seen. XR/XR chest 1V portable [id number] IMPRESSION: 1. Endotracheal and nasogastric tubes are in good position. 2. RIGHT IJ line in good position with the tip terminating near the SVC atrial junction.
[2021-12-16] MEDS: propofol 1,000 MG/100 ML INJ 2.45 MG IV (15:30)
[2021-12-16] MEDS: cefepime 1,000 MG in sodium chloride 0.9% (plus) 50 ML 100 MG IV (15:43)
[2021-12-16] MEDS: vancomycin 1,000 MG in sodium chloride 0.9% 250 ML 250 MG IV (15:44)
[2021-12-16] MEDS: ipratropium-albuterol 3 mL Neb INHALATION ×2 (15:48→20:01)
[2021-12-16 16:01] LABS: Troponin 5 2HR 46.75 ng/L (0-15)
[2021-12-16 16:02] LABS: Troponin 5 2HR Delta -4.25 ABS# (0-10)
[2021-12-16 16:19] LABS: Lactic Sepsis W/Reflex 0.5 mmol/L (0.5-2.2)
[2021-12-16 16:26] LABS: ABG PCO2 60.8 mmHg (35-45); ABG PH Result 7.39 (7.35-7.45); Alveolar-Arterial Oxygen Gradi 75.6 mmHg (5-10); Arterial Blood Gas Hematocrit 38.9 % (42-52); Base Excess ABG 9.8 mmol/L (-2.0-2.0); Blood Gas Operator Identificat AMH; Blood Gas Sample Site Brachial, right; Blood Gas Sample Type Arterial; Blood Gas Tidal Volume 0.44; Carboxyhemoglobin 4.4 %THgb (0.4-20.1); HCO3 ABG 36.9 mmol/L (22-26); HGB O2 Sat 86.7 % (95-100); Ionized Calcium Level - ABG 1.2 mmol/L (1.1-1.4); Methemoglobin 0.9 % (0.4-1.5); Oxygen Device VENT; Oxygen Saturation ABG 91.5; PO2 ABG 58.8 mmHg (80.0-100.0); Potassium Level - ABG 4.6 mmol/L (3.5-5.0); Total Hemoglobin 12.7 g/dL (14-18)
--- NOTE | 2021-12-16 16:30 | PC.NURSE ---
Family updated and educated on patient condition. Denied further needs or questions. Patient belongings including: white shoes, blue jeans, glasses, jacket, portable oxygen tank, wallet with $36, keys, and pharmacy coordinator sent with sister Jenifer.
[2021-12-16] MEDS: propofol 10 mg/mL SDV 20 mL 100 MG IVP (16:40)
[2021-12-16] MEDS: succinylcholine 20 mg/mL SDV 10mL 120 MG IVP (16:40)
[2021-12-16] MEDS: vecuronium 10 mg SDV IVP (16:40)
[2021-12-16 17:07] LABS: Lipase 25 U/L (13-60); Magnesium 1.7 mg/dL (1.7-2.3)
--- NOTE | 2021-12-16 17:22 | CTR_ITS ---
PROCEDURE INFORMATION: Exam: CT Head Without Contrast Exam date and time: 12/16/2021 5:22 PM Age: 66 years old Clinical indication: Altered mental status/memory loss; Additional info: AMS TECHNIQUE: Imaging protocol: Computed tomography of the head without contrast. Radiation optimization: All CT scans at this facility use at least one of these dose optimization techniques: automated exposure control; mA and/or kV adjustment per patient size (includes targeted exams where dose is matched to clinical indication); or iterative reconstruction. COMPARISON: none available. RADIATION DOSE METRICS: Total DLP (mGy-cm): 951.06 FINDINGS: Brain: Mild white matter chronic microvascular changes are noted. No hemorrhage or evidence of acute infarction. Cerebral ventricles: No ventriculomegaly. Paranasal sinuses: Mild sinusitis changes are appreciated. Mastoid air cells: Bilateral mastoiditis is noted. Bones/joints: Unremarkable. No acute fracture. Soft tissues: Unremarkable. CT/CT head wo con* [id number] IMPRESSION: 1. No acute intracranial abnormality. 2. Mild sinusitis and bilateral mastoiditis.
[2021-12-16 17:30] LABS: Glucose Point of Care 71 mg/dL (70-110)
[2021-12-16 18:06] LABS: Glucose Point of Care 63 mg/dL (70-110)
[2021-12-16] MEDS: dextrose 10% 1,000 ML 20 ML IV (18:40)
[2021-12-16] MEDS: FUROsemide 10 mg/mL SDV 10mL 60 MG IVP (18:41)
--- NOTE | 2021-12-16 18:44 | ECG_ITS ---
[facility] Test Date: 2021-12-16 Pat Name: Nagi Cuellar Department: Room: Gender: Male Student Services Counselor: : 1955 Requested By: Nagi Arita Order Number: [id number] Reading MD: ADAN ENRIQUEZ Measurements Intervals [place] Rate: 39 P: 51 [place]: 195 QRS: 38 QRSD: 110 T: 62 QT: 490 QTc: 398 Interpretive Statements SINUS BRADYCARDIA WITH SINUS ARRHYTHMIA INDETERMINATE AXIS INCOMPLETE RIGHT BUNDLE BRANCH BLOCK [90+ ms QRS DURATION, TERMINAL R IN V1/V2, 40+ ms S IN I/aVL/V4/V5/V6] CRITICAL TEST RESULT Compared to ECG 12/16/2021 13:15:39 Indeterminate axis now present Electronically Signed On 12-16-2021 21:49:11 EDGE GRINDER MACHINE by ADAN ENRIQUEZ [id number]
--- NOTE | 2021-12-16 19:00 | PC.NURSE ---
Bedside report received from kristine URBINA. Dr. Rogers at the bedside. Doctor states to start the patient on tube feeds with Glucerna at 10mls/hr. Verbal orders read back from Dr. Rogers to check blood glucose Q2H x2 and then ACHS after that and to hold D10 if blood glucose >200. Discussed the patient's plan of care extensively with the doctor. Patient is bradycardic in the 40's-50's at this time. All other vital signs are stable on the ventilator at 100% and dopamine gtt. Patient is lightly sedated on fentanyl gtt, versed gtt, and propofol gtt. Dr. Rogers stated to wean the patient's propofol gtt off to help the patient's bradycardia and wean the other sedation gtt's up as needed to keep the patient appropriately sedated. Will continue to monitor the patient closely and notify MD of changes. MAR: Patient's fentanyl gtt is running at 25mcg/hr, propofol gtt is at 25mcg/kg/min, versed gtt is at 2mg/hr, and dopamine gtt is at 3mcg/kg/min when I arrived at the bedside for report. Gtt's titrated in the MAR to show the correct current rates.
--- NOTE | 2021-12-16 19:51 | PC.NURSE ---
Shift SUmmary: Limited summary for day shift 12/16/2021.... Patient arrived form ER via stretcher at 1749. Versed, propofol, fentanyl, and dobutamine started/titrated for effect per protocol. After patient was resting comfortably in bed, nurse called and updated life partner named Kalyn. Patient care transferred over to mold shifter nurse shortly after.
[2021-12-16 20:11] LABS: Urine Appearance Clear (CLEAR); Urine Color Yellow (Yellow); pH Urine 5 (5-7)
[2021-12-16 20:12] LABS: Add Urine Microscopic? YES; Bilirubin Urine Neg (Negative); Blood Urine Neg (Negative); Glucose Urine UA 1+ (Normal); Ketones Urine Negative (Negative); Leukocyte Esterase Urine Negative (Negative); Nitrate Urine Negative (Negative); Protein Urine 3+ (Negative); Urobilinogen Urine Norm (Negative)
[2021-12-16 20:13] LABS: Bacteria Urine TRACE /hpf; Fine Granular Casts Urine 0-4 /lpf; Hyaline Casts Urine RARE /lpf; Squamous Epithelial Cell Urine 0-4 /hpf (0-5)
--- NOTE | 2021-12-16 20:34 | PC.PHAR ---
Pharmacokinetic dosing service Date: 12/16/21 Time: 2034 Objective: Patient: Nagi Cuellar Floor: ICU-2 Age: 66 yo Serum creatinine: 0.7 mg/dL Height: 65.0 Inches Weight (kg): 81.647 Diagnosis: Relevant medical/social history: Cultures and sensitivities: Other labs: Assessment: IBW (kg): 61.50 Dosing wt(kg): 81.647 Estimated Creatinine clearance (ml/min): 92.7 CRCL method: Cockcroft and Gault using ibw(default). Drug selected: Vancomycin Loading dose (mg): 0 Vd (liters): 73.5 (factor used: 0.9 L/kg) Umang (hr-1): 0.081 Half life (hrs): 8.56 Recommended dose: 1500 mg Interval: 8 hrs Infusion time (hrs): 1.5 Predicted peak (mcg/mL): 40.3 Predicted trough (mcg/mL): 23.80 Total body weight is being used for vancomycin dosing. Renal function is stable [ ] /unstable [ ] Recommendations: Give Vancomycin 1500 mg q 8 hrs with an expected Cpeak of 40.3 mcg/ml and an expected Ctrough of 23.80 mcg/ml Renal dosing of other antibiotics (review renal dosing of other medications and list guidelines here): Thank you for the consult, will continue to follow. Signature: Kay Hanley [facility]
[2021-12-16 21:00] LABS: Glucose Point of Care 94 mg/dL (70-110)
[2021-12-16 21:08] LABS: INR 0.93 (0.8-1.2)
[2021-12-16 21:09] LABS: Partial Thromboplastin Time 28.6 SECONDS (23.9-36.7)
[2021-12-16 21:22] LABS: Magnesium 1.8 mg/dL (1.7-2.3)
[2021-12-16 21:25] LABS: Troponin 5 6HR 36.39 ng/L (0-15)
[2021-12-16 21:33] LABS: Procalcitonin 0.09 ng/mL (0-0.5); Thyroid Stimulating Hormone 0.69 uIU/mL (0.27-4.20)
[2021-12-16] MEDS: atorvastatin 40 mg Tablet 20 MG PO (21:57)
[2021-12-16 22:31] LABS: Free T4 Free Thyroxine 1.43 ng/dL (0.82-1.77); T3 Free 2.2 PG/ML (2.0-4.4)
[2021-12-16 23:06] LABS: Glucose Point of Care 102 mg/dL (70-110)
[2021-12-16 23:38] LABS: Adenovirus Not Detected (NOT DETECT); Chlamydia Pneumoniae Not Detected (NOT DETECT); Coronavirus 229E,HKU1,NL63,OC4 Not Detected (NOT DETECT); Human Metapneumovirus Not Detected (NOT DETECT); Human Rhinovirus/Enterovirus Not Detected (NOT DETECT); Influenza A Not Detected (NOT DETECT); Influenza A H1 Not Detected (NOT DETECT); Influenza A H1-2009 Not Detected (NOT DETECT); Influenza A H3 Not Detected (NOT DETECT); Influenza B Not Detected (NOT DETECT); Mycoplasma Pneumoniae Not Detected (NOT DETECT); Parainfluenza Virus Type 1 Not Detected (NOT DETECT); Parainfluenza Virus Type 2 Not Detected (NOT DETECT); Parainfluenza Virus Type 3 Not Detected (NOT DETECT); Parainfluenza Virus Type 4 Not Detected (NOT DETECT); Respiratory Syncytial Virus A Not Detected (NOT DETECT); Respiratory Syncytial Virus B Not Detected (NOT DETECT); SARS-COV-2 Not Detected (NOT DETECT)
[2021-12-17] VITALS (106 sets, daily range): BP systolic 84–125; BP diastolic 47–68; PULSE 63–87; RESP 16; TEMP 36.7–37.1; O2SAT 89–97
[2021-12-17] MEDS: vancomycin 1,500 MG/300 ML PIGGYBACK 200 MG IV ×2 (00:26→06:23)
[2021-12-17 01:25] LABS: Glucose Point of Care 131 mg/dL (70-110)
[2021-12-17] MEDS: sodium chloride 0.9% 500 ML IV (03:11)
[2021-12-17] MEDS: ipratropium-albuterol 3 mL Neb INHALATION ×4 (03:27→20:04)
--- NOTE | 2021-12-17 03:30 | PC.NURSE ---
CVP 13
--- NOTE | 2021-12-17 04:00 | XR_ITS ---
WS: [id number] XR chest 1V portable [id number] REASON FOR EXAM: pneumonia, respiratory failure FINDINGS: Endotracheal tube, nasogastric tube, and right internal jugular central venous line remain in proper position. Compared to the to 08/25/2022 there is increased opacity in both lower hemithoraces. This appears to be due to development of interstitial lung opacities and increasing atelectasis. Possibly pleural eff usion on the right. XR/XR chest 1V portable [id number] IMPRESSION: Interval development of interstitial lung opacities and increasing atelectasis in the lower lungs.
[2021-12-17 04:15] LABS: Basophils % 0.2 %; Hematocrit 39.2 % (42.0-52.0); Hemoglobin 12.3 g/dL (11.7-16.6); Lymphocytes # 0.2 10^3/uL (0.8-4.8); Mean Corpuscular HGB Conc 31.4 g/dL (30.0-36.0); Mean Corpuscular Hemoglobin 28.7 pg (28.0-34.0); Mean Corpuscular Volume 91.6 fl (80-94); Mean Platelet Volume 11.7 fL (7.4-10.4); Monocytes # 0.1 10^3/uL (0.2-0.9); Monocytes % 1.2 %; Neutrophils # 5.36 10^3/uL (1.8-7.7); Neutrophils % 94.9 %; Nucleated Red Blood Cells % 0 %; Platelet Count 236 10^3/cmm (130-400); Red Blood Count 4.28 10^6/uL (4.1-5.3); Red Cell Distribution Width 17.5 % (12.1-15.1); White Blood Count 5.7 10^3/uL (4.0-10.0)
[2021-12-17] MEDS: cefepime 1,000 MG in sodium chloride 0.9% (plus) 50 ML 100 MG IV ×2 (04:24→15:41)
[2021-12-17 04:47] LABS: Alanine Aminotransferase 17 U/L (0-41); Albumin Level 3.1 g/dL (3.5-5.2); Alkaline Phosphatase 77 IU/L (40-130); Anion Gap 17.9 (5-19); Aspartate Amino Transferase 15 U/L (0-40); Blood Urea Nitrogen 30 mg/dL (8-23); Carbon Dioxide 30 mmol/L (22-29); Chloride 95 mmol/L (98-107); Globulin 2.7 g/dL (1.3-4.6); Glucose 143 mg/dL (65-115); Osmolality Calculated 295 mOsm/kg (285-295); Potassium 4.9 mmol/L (3.5-5.1); Sodium 138 mmol/L (136-145); Total Bilirubin 0.3 mg/dL (0.15-1.2); Total Protein 5.8 g/dL (6.6-8.7)
[2021-12-17] MEDS: methIMAzole 5 MG Tablet PO (05:06)
[2021-12-17] MEDS: sodium chloride 0.9 % (flush) syringe 10 mL IV ×2 (05:08→17:21)
[2021-12-17] MEDS: aspirin 81 mg Chew Tablet PO (05:31)
[2021-12-17 05:39] LABS: ABG PH Result 7.35 (7.35-7.45); Arterial Blood Gas Hematocrit 41.9 % (42-52); Base Excess ABG 6.1 mmol/L (-2.0-2.0); Blood Gas Allen Test Pos; Blood Gas Sample Type Arterial; HCO3 ABG 33.6 mmol/L (22-26); PO2 ABG 67.5 mmHg (80.0-100.0)
[2021-12-17 05:40] LABS: Blood Gas Operator Identificat JB; Blood Gas Tidal Volume 0.45; Oxygen Device VENT
--- NOTE | 2021-12-17 06:20 | PC.NURSE ---
Shift Note Frequent safety and comfort rounds continue. Orders and/or nursing care completed as indicated. Patient monitored for response to intervention and treatment(s). Sedation gtt's titrated throughout the shift to appropriately sedate the patient. Patient vital signs remained stable. Patient is tolerating tube feeds well. Will continue to monitor.
[2021-12-17 06:32] LABS: ABG PCO2 60.5 mmHg (35-45)
[2021-12-17] MEDS: budesonide 0.5 mg/2 mL Neb INHALATION ×2 (08:09→20:04)
[2021-12-17 08:56] LABS: Glucose Point of Care 235 mg/dL (70-110)
[2021-12-17] MEDS: insulin lispro 100 unit/1 mL SUBCUT ×4 (08:57→20:41)
[2021-12-17] MEDS: pantoprazole 40 mg SDV IVP (08:57)
[2021-12-17] MEDS: docusate sodium 10 mg/mL (5ml) Liq 100 MG PO ×2 (09:04→17:13)
[2021-12-17 13:12] LABS: Glucose Point of Care 215 mg/dL (70-110)
[2021-12-17 14:48] LABS: Vancomycin Trough 33.7 ug/mL (10-15)
--- NOTE | 2021-12-17 15:01 | PM.PN ---
Subjective Subjective: Nagi is sedated on the ventilator. History and physical is reviewed. Medications: Reviewed: Yes Vitals/I&O/Wt Last Vital Signs Temp 98.3 F 12/17/21 14:00 Pulse 70 12/17/21 14:28 Resp 16 12/17/21 14:28 BP 84/62 12/17/21 14:00 Pulse Ox 92 12/17/21 14:28 12/17/21 12/17/21 12/17/21 06:59 14:59 22:59 Intake Total 513.149 / 958.895 414.974 / 414.974 Output Total 375 / 1575 400 / 400 Balance 138.149 / -616.105 14.974 / 14.974 Weight last 48 hrs Weight 99.019 kg Weight 81.647 kg Weight 81.647 kg Physical Exam Narrative: General exam is a sedated male on the ventilator Orogastric tube noted. Pupils equally round. Neck is supple no lymphadenopathy or thyromegaly Cardiovascular regular rate and rhythm, heart sounds distant Lungs clear but with diminished breath sounds Abdomen is soft nontender positive bowel sounds Extremities no cyanosis clubbing. Trace to 1+ edema is present bilaterally. Urinary Catheter Management: Matias: Cath Placed During This Visit: yes Urethral Indwelling: Yes Reason for Continuing Indwelling Catheter: Accurate Measurement of Urinary Output in Critically Ill Patients Urinary Catheter Date of Insertion: 12/16/21 Urinary Catheter Time of Insertion: 15:00 Data : 12/17/21 03:33 12/17/21 03:33 Micro: Microbiology 12/17/21 00:45 Gram Stain - Final Sputum - Endotracheal Tube Aspirate 12/16/21 15:40 Blood Culture - Preliminary Blood SPECIMEN COLLECTED 12/16/21 15:35 Blood Culture - Preliminary Blood SPECIMEN COLLECTED A&P Assessment and plan (1) Acute metabolic encephalopathy: Likely secondary to hypercapnic hypoxic respiratory failure with bradycardia and hypoglycemia. CT head no acute findings Status: Acute (2) Acute on chronic respiratory failure with hypoxia and hypercapnia: Requiring endotracheal intubation. Initially required a high amount of FiO2 but with adjustment of PEEP, which is now 10 his FiO2 requirement has decreased to 50%. Has known chronic obstructive and restrictive lung disease. Presentation consistent with acute COPD exacerbation Continue IV steroids and with concern of bibasilar pneumonia cefepime and vancomycin. Pulmonary toilet to continue Sedation with fentanyl and propofol Although appears slightly fluid overloaded cannot diurese secondary to borderline hypotension Await sputum and blood cultures Status: Acute (3) Bradycardia: Chronically on amiodarone and betablockade due to atrial fibrillation history, no recent medication changes apparent Holding amiodarone and metoprolol Dopamine has been able to be weaned On presentation heart rate was in the 30s Watch for any recurrence of significant bradycardia Depending on clinical course may consider inpatient cardiology consultation Status: Acute (4) CHF (congestive heart failure): Currently appears to be reasonably compensated. Secondary to borderline hypotension Entresto, diuretics held Status: Chronic Qualifiers: Heart failure type: diastolic Heart failure chronicity: acute on chronic Qualified Code(s): I50.33 - Acute on chronic diastolic (congestive) heart failure (5) Pneumonia: Continue vancomycin and cefepime Await sputum culture Covid PCR negative Status: Acute (6) Coronavirus infection: [id number] infection identified 12/05/2021 via PCR testing. He had SARS-CoV-2 infection in 09/2021; did not require intubation then. Status: Acute (7) COPD (chronic obstructive pulmonary disease): See findings under respiratory failure Status: Chronic Qualifiers: COPD type: COPD with acute exacerbation Qualified Code(s): J44.1 - Chronic obstructive pulmonary disease with (acute) exacerbation (8) Diabetes mellitus, type II: Chronically on long acting and short acting insulin plus sitagliptin. Initial blood sugars in the field were low necessitating administration of D50 and D10 in route by EMS. On arrival here blood sugar was greater than 200 but he subsequently recurrent acute hypoglycemia with sugars at 60. D10W at low rate of infusion currently given pulmonary edema even through the night At this point we will try to transition to D5 Starting trophic glucerna and increase as tolerates to maintain blood sugars/nutrition Holding long acting insulin Serial accuchecks Status: Chronic Qualifiers: Diabetes mellitus transportation security screener insulin use: with transportation security screener use Diabetes mellitus complication status: with hypoglycemia Diabetes mellitus complication detail: without coma Qualified Code(s): E11.649 - Type 2 diabetes mellitus with hypoglycemia without coma; Z79.4 - inspector balance truing (current) use of insulin (9) CAD (coronary artery disease): History of stent x 2 previously, last cath in 07/2021 with patent stents, chronically on aspirin and statin Troponin above normal range but with negative delta Continue aspirin and statin Status: Chronic Qualifiers: Coronary Disease-Associated Artery/Lesion type: [place] artery [place] vs. transplanted heart: [place] heart Associated angina: without angina Qualified Code(s): I25.10 - Atherosclerotic heart disease of [place] coronary artery without angina pectoris (10) Hypertension: On entresto, betablocker and diuretic chronically Initial blood pressures low normal range; after intubation, blood pressures as high as 190s systolic. Improved with sedation (which exacerbated bradycardia). With adjustments to sedation given, blood pressure has improved. Holding home antihypertensive agents at present time Monitor need to add antihypertensives back, especially as sedation is weaned Status: Chronic Qualifiers: Hypertension type: primary hypertension Qualified Code(s): I10 - Essential (primary) hypertension (11) Hyperthyroidism: Continue methimazole Status: Chronic (12) Nicotine addiction: Status: Acute Qualifiers: Nicotine product type: cigarettes Substance use status: other nicotine-induced disorder Qualified Code(s): F17.218 - Nicotine dependence, cigarettes, with other nicotine-induced disorders (13) BMI 30.0-30.9,adult: Status: Chronic Plan Lovenox for DVT prophylaxis Full code Attestations Medical Necessity Statement*: Needs continued hospitalization secondary to respiratory failure requiring mechanical ventilation Critical Care Time: The high probability of a clinically significant, sudden or life threatening deterioration of the patient's [pulmonary, cardiac, infectious disease, renal system(s) required my full and direct attention, intervention and personal management. The critical care time is as shown. This time is in addition to time spent performing any reported procedures but includes the following: [x] Data and vital sign review and interpretation [x] Patient assessment, examination and intervention [x] Documentation [x] Medication orders and management Critical Care Time (min): 36 Coding Level of Care Code Acute Lead Nuclear Medicine Technologist for [facility] Fwd Diagnoses Acute metabolic encephalopathy G93.41 Acute on chronic respiratory failure with hypoxia and hypercapnia J96.21; J96.22 Bradycardia R00.1 CHF (congestive heart failure) I50.33 Heart failure type: diastolic Heart failure chronicity: acute on chronic Pneumonia J18.9 Coronavirus infection B34.2 COPD (chronic obstructive pulmonary disease) J44.1 COPD type: COPD with acute exacerbation Diabetes mellitus, type II E11.649; Z79.4 Diabetes mellitus transportation security screener insulin use: with fdc use Diabetes mellitus complication status: with hypoglycemia Diabetes mellitus complication detail: without coma CAD (coronary artery disease) I25.10 Coronary Disease-Associated Artery/Lesion type: [place] artery [place] vs. transplanted heart: [place] heart Associated angina: without angina Hypertension I10 Hypertension type: primary hypertension Hyperthyroidism E05.90 Nicotine addiction F17.218 Nicotine product type: cigarettes Substance use status: other nicotine-induced disorder BMI 30.0-30.9,adult Z68.30
[2021-12-17] MEDS: dextrose 5%-sod chloride 0.45% 1,000 ML 20 ML IV (15:42)
--- NOTE | 2021-12-17 16:38 | PC.NURSE ---
vancomycin held due to high trough. Pharmacy notified for rescheduling
[2021-12-17] MEDS: sodium chloride 0.9% 250 ML IV (16:59)
[2021-12-17 17:34] LABS: Glucose Point of Care 225 mg/dL (70-110)
--- NOTE | 2021-12-17 18:38 | PC.NURSE ---
SHift SUmmary: Uneventful shift. patient rested in bed throughout the day. Patient appears comfortable and is able to be roused verbally and will follow simple commands (squeeze hands, open eyes) while on 100mcg of fentanyl and 6mg of versed. TOtal urine output for shift is 700mL. Started at 75% FIO2 this morning, now on 55% fio2.
[2021-12-17] MEDS: atorvastatin 40 mg Tablet 20 MG PO (20:31)
[2021-12-17 21:07] LABS: Glucose Point of Care 196 mg/dL (70-110)
[2021-12-18] VITALS (57 sets, daily range): BP systolic 88–140; BP diastolic 40–72; PULSE 64–84; RESP 16–17; TEMP 36.7–37.2; O2SAT 89–94
[2021-12-18] MEDS: vancomycin 1,500 MG/300 ML PIGGYBACK 200 MG IV ×2 (03:03→15:21)
[2021-12-18] MEDS: cefepime 1,000 MG in sodium chloride 0.9% (plus) 50 ML 100 MG IV ×2 (03:05→15:21)
[2021-12-18] MEDS: DOPamine drip 400 MG/250 ML PREMIX 6.12 MG IV (03:20)
[2021-12-18] MEDS: ipratropium-albuterol 3 mL Neb INHALATION ×4 (03:36→20:29)
[2021-12-18 05:16] LABS: Basophils % 0.1 %; Hematocrit 36.6 % (42.0-52.0); Hemoglobin 11.4 g/dL (11.7-16.6); Lymphocytes # 0.2 10^3/uL (0.8-4.8); Lymphocytes % 1.4 %; Mean Corpuscular HGB Conc 31.1 g/dL (30.0-36.0); Mean Corpuscular Hemoglobin 28.5 pg (28.0-34.0); Mean Corpuscular Volume 91.5 fl (80-94); Mean Platelet Volume 10.9 fL (7.4-10.4); Monocytes # 0.3 10^3/uL (0.2-0.9); Monocytes % 2.6 %; Neutrophils # 10.33 10^3/uL (1.8-7.7); Neutrophils % 95.3 %; Nucleated Red Blood Cells % 0 %; Platelet Count 243 10^3/cmm (130-400); Red Cell Distribution Width 18.7 % (12.1-15.1); White Blood Count 10.8 10^3/uL (4.0-10.0)
[2021-12-18] MEDS: aspirin 81 mg Chew Tablet PO (05:19)
[2021-12-18] MEDS: methIMAzole 5 MG Tablet PO (05:19)
[2021-12-18] MEDS: sodium chloride 0.9 % (flush) syringe 10 mL IV ×2 (05:19→18:06)
[2021-12-18 05:29] LABS: ABG PH Result 7.37 (7.35-7.45); Arterial Blood Gas Hematocrit 37.6 % (42-52); Blood Gas Sample Type Arterial; HCO3 ABG 35.1 mmol/L (22-26); PO2 ABG 68.5 mmHg (80.0-100.0)
[2021-12-18 05:30] LABS: Blood Gas Operator Identificat JB; Blood Gas Sample Site Brachial, right; Blood Gas Tidal Volume 0.45; Oxygen Device VENT
[2021-12-18 05:38] LABS: ABG PCO2 60.5 mmHg (35-45)
[2021-12-18 05:53] LABS: Alanine Aminotransferase 16 U/L (0-41); Albumin Level 3.1 g/dL (3.5-5.2); Alkaline Phosphatase 66 IU/L (40-130); Anion Gap 14.3 (5-19); Aspartate Amino Transferase 21 U/L (0-40); Blood Urea Nitrogen 32 mg/dL (8-23); Calcium 7.9 mg/dL (8.5-10.5); Carbon Dioxide 32 mmol/L (22-29); Chloride 100 mmol/L (98-107); Glomerular Filtration Rate 75.2 mL/min (90-130); Glucose 231 mg/dL (65-115); Osmolality Calculated 308 mOsm/kg (285-295); Potassium 4.3 mmol/L (3.5-5.1); Sodium 142 mmol/L (136-145); Total Bilirubin 0.2 mg/dL (0.15-1.2); Total Protein 5.1 g/dL (6.6-8.7)
--- NOTE | 2021-12-18 06:46 | PC.NURSE ---
Shift Note Frequent safety and comfort rounds continue. Orders and/or nursing care completed as indicated. Patient monitored for response to intervention and treatment(s). Sedation gtt's titrated throughout the shift to appropriately sedate the patient. Patient vital signs remained stable. Patient is tolerating tube feeds well. Full bath and linen change performed for the patient. Patient tolerated well. Overall, patient had an uneventful night.
--- NOTE | 2021-12-18 07:00 | XRR_ITS ---
PROCEDURE INFORMATION: Exam: XR Chest Exam date and time: 12/18/2021 7:00 AM Age: 66 years old Clinical indication: Shortness of breath; Patient HX: F/u resp failure. Intubated. TECHNIQUE: Imaging protocol: XR of the chest. Views: 1 view. COMPARISON: CR XR chest 1V portable [id number] 12/17/2021 4:45 AM FINDINGS: Tubes, catheters and devices: Endotracheal tube is in satisfactory position. Feeding tube is in satisfactory position. Right IJ approach central line is in satisfactory position, with distal tip in the RA. Lungs: Low lung volumes. There is redistribution and indistinctness of the pulmonary vasculature, in association with haziness of the lungs and small bilateral pleural effusions, which in the setting of cardiomegaly is consistent with pulmonary edema. Pneumonia should be excluded clinically. No pneumothorax. Pleural spaces: See Lungs finding. Heart/Mediastinum: Stable cardiomediastinal silhouette. Bones/joints: Unremarkable. XR/XR chest 1V portable [id number] IMPRESSION: Imaging findings of pulmonary edema with small bilateral pleural effusions. Pneumonia should be excluded clinically.
[2021-12-18 08:02] LABS: Glucose Point of Care 223 mg/dL (70-110)
[2021-12-18] MEDS: insulin lispro 100 unit/1 mL SUBCUT ×4 (08:02→20:27)
[2021-12-18] MEDS: budesonide 0.5 mg/2 mL Neb INHALATION ×2 (08:03→20:29)
[2021-12-18] MEDS: pantoprazole 40 mg SDV IVP (08:04)
[2021-12-18] MEDS: docusate sodium 10 mg/mL (5ml) Liq 100 MG PO ×2 (08:04→18:06)
--- NOTE | 2021-12-18 10:14 | PM.PN ---
Subjective Subjective: Patient is sedated and nonverbal. He remains on assist control ventilation. He is on a whisper of dopamine, and he still requiring 55% O2 on assisted ventilation. His pressures look good, so we should be able to get the dopamine off soon. His respiratory status seems to have plateaued somewhat. Vitals/I&O/Wt Last Vital Signs Temp 98.4 F 12/18/21 07:57 Pulse 65 12/18/21 08:03 Resp 16 12/18/21 08:04 BP 129/67 12/18/21 07:57 Pulse Ox 93 12/18/21 08:04 12/17/21 12/18/21 12/18/21 22:59 06:59 14:59 Intake Total 951.585 / 1366.559 567.667 / 1934.226 Output Total 625 / 1025 500 / 1525 Balance 326.585 / 341.559 67.667 / 409.226 Weight last 48 hrs Weight 226 lb 3.2 oz Weight 218 lb 4.8 oz Weight 180 lb Weight 180 lb Physical Exam Narrative: Sedated and comfortable Neck/C-Spine: COMMON NORMALS: no JVD Resp: OTHER: Lungs are fairly clear bilaterally. Cardio: COMMON NORMALS: no JVD, regular rate, regular rhythm, S1 normal heart sound present, S2 normal heart sound present, No gallops present (Cardio), No clicks present (Cardio), No murmurs present (Cardio), No rub (Cardio) and Peripheral pulses 2+ throughout RATE: regular rate RHYTHM: regular rhythm HEART SOUNDS: S1 normal heart sound present and S2 normal heart sound present PERIPHERAL PULSES: Peripheral pulses 2+ throughout GI: COMMON NORMALS: Normal to inspection, nondistended, normoactive bowel sounds present, Soft to palpation, non-tender, No hepatosplenomegaly present, no masses and no bruits PALPATION: Yes Soft to palpation and Yes No hepatosplenomegaly present Urinary Catheter Management: Matias: Cath Placed During This Visit: yes Urethral Indwelling: Yes Reason for Continuing Indwelling Catheter: Accurate Measurement of Urinary Output in Critically Ill Patients Urinary Catheter Date of Insertion: 12/16/21 Urinary Catheter Time of Insertion: 15:00 Data : 12/18/21 04:41 12/18/21 04:41 Micro: Microbiology 12/16/21 15:35 Blood Culture - Preliminary Blood 12/16/21 15:40 Blood Culture - Preliminary Blood NEGATIVE TO DATE 12/17/21 00:45 Gram Stain - Final Sputum - Endotracheal Tube Aspirate A&P Assessment and plan (1) CAD (coronary artery disease): Status: Chronic Qualifiers: Coronary Disease-Associated Artery/Lesion type: [place] artery [place] vs. transplanted heart: [place] heart Associated angina: without angina Qualified Code(s): I25.10 - Atherosclerotic heart disease of [place] coronary artery without angina pectoris (2) Hypertension: Status: Chronic Qualifiers: Hypertension type: primary hypertension Qualified Code(s): I10 - Essential (primary) hypertension (3) Acute on chronic respiratory failure with hypoxia and hypercapnia: We will continue to wean down his oxygen, continue his antibiotics, continue with steroids, and monitor his chest x-ray. Status: Acute Attestations Medical Necessity Statement*: He will require at least 2 midnights of stay considering he is still intubated. Coding Level of Care Code Acute Insulation Extruder Operator for [facility] Diagnoses CAD (coronary artery disease) I25.10 Coronary Disease-Associated Artery/Lesion type: [place] artery [place] vs. transplanted heart: [place] heart Associated angina: without angina Hypertension I10 Hypertension type: primary hypertension Acute on chronic respiratory failure with hypoxia and hypercapnia J96.21; J96.22
[2021-12-18 11:15] LABS: Bacillus cereus group Not Detected (NOT DETECT); Bacillus subtillis group Not Detected (NOT DETECT); Corynebacterium Not Detected (NOT DETECT); Cutibacterium acnes (P.acnes) Not Detected (NOT DETECT); Enterococcus Not Detected (NOT DETECT); Enterococcus faecalis Not Detected (NOT DETECT); Enterococcus faecium Not Detected (NOT DETECT); Lactobacillus species Not Detected (NOT DETECT); Listeria Not Detected (NOT DETECT); Listeria monocytogenes Not Detected (NOT DETECT); Micrococcus Not Detected (NOT DETECT); Pan Candida Not Detected (NOT DETECT); Pan Gram-Negative Not Detected (NOT DETECT); Staphylococcus epidermidis Detected (NOT DETECT); Staphylococcus lugdunensis Not Detected (NOT DETECT); Staphylococcus species Detected (NOT DETECT); Streptococcus agalactiae Not Detected (NOT DETECT); Streptococcus anginosus group Not Detected (NOT DETECT); Streptococcus pneumoniae Not Detected (NOT DETECT); Streptococcus pyogenes Not Detected (NOT DETECT); Streptococcus species Detected (NOT DETECT); mecA Not Detected (NOT DETECT); mecC Not Detected (NOT DETECT)
[2021-12-18 12:17] LABS: Basophils % 0.1 %; Hematocrit 34.9 % (42.0-52.0); Hemoglobin 10.8 g/dL (11.7-16.6); Lymphocytes # 0.1 10^3/uL (0.8-4.8); Lymphocytes % 0.9 %; Mean Corpuscular HGB Conc 30.9 g/dL (30.0-36.0); Mean Corpuscular Volume 93.8 fl (80-94); Mean Platelet Volume 10.8 fL (7.4-10.4); Monocytes # 0.4 10^3/uL (0.2-0.9); Monocytes % 3.8 %; Neutrophils # 9.87 10^3/uL (1.8-7.7); Neutrophils % 94.7 %; Nucleated Red Blood Cells % 0 %; Platelet Count 238 10^3/cmm (130-400); Red Blood Count 3.72 10^6/uL (4.1-5.3); Red Cell Distribution Width 18.9 % (12.1-15.1); White Blood Count 10.4 10^3/uL (4.0-10.0)
[2021-12-18 12:39] LABS: Glucose Point of Care 201 mg/dL (70-110)
[2021-12-18 12:43] LABS: Alanine Aminotransferase 12 U/L (0-41); Albumin Level 2.9 g/dL (3.5-5.2); Alkaline Phosphatase 58 IU/L (40-130); Aspartate Amino Transferase 7 U/L (0-40); Blood Urea Nitrogen 31 mg/dL (8-23); Calcium 7.9 mg/dL (8.5-10.5); Carbon Dioxide 30 mmol/L (22-29); Chloride 101 mmol/L (98-107); Glomerular Filtration Rate 75.2 mL/min (90-130); Glucose 205 mg/dL (65-115); Osmolality Calculated 302 mOsm/kg (285-295); Sodium 140 mmol/L (136-145); Total Bilirubin 0.2 mg/dL (0.15-1.2); Total Protein 4.9 g/dL (6.6-8.7)
--- NOTE | 2021-12-18 17:18 | PC.NURSE ---
Shift Note Frequent safety and comfort rounds continue. Orders and/or nursing care completed as indicated. Patient monitored for response to intervention and treatment(s). Education and status updates provided to the family members that have called, no family has been at bedside today. Pt remains intubated but has been able to follow commands and help with repositioning throughout the day and understands the plan of care. Will continue to monitor.
[2021-12-18 18:24] LABS: Glucose Point of Care 234 mg/dL (70-110)
[2021-12-18 20:45] LABS: Glucose Point of Care 180 mg/dL (70-110)
[2021-12-18] MEDS: atorvastatin 40 mg Tablet 20 MG PO (20:51)
[2021-12-19] VITALS (35 sets, daily range): BP systolic 115–139; BP diastolic 58–87; PULSE 57–87; RESP 16–18; TEMP 36.6–37.2; O2SAT 86–96
[2021-12-19] MEDS: vancomycin 1,500 MG/300 ML PIGGYBACK 200 MG IV (02:14)
[2021-12-19] MEDS: ipratropium-albuterol 3 mL Neb INHALATION ×4 (03:20→20:01)
[2021-12-19] MEDS: cefepime 1,000 MG in sodium chloride 0.9% (plus) 50 ML 100 MG IV ×2 (03:21→16:12)
[2021-12-19 04:43] LABS: Basophils % 0.1 %; Hematocrit 35.9 % (42.0-52.0); Hemoglobin 11.1 g/dL (11.7-16.6); Lymphocytes # 0.1 10^3/uL (0.8-4.8); Lymphocytes % 1.2 %; Mean Corpuscular HGB Conc 30.9 g/dL (30.0-36.0); Mean Corpuscular Hemoglobin 28.7 pg (28.0-34.0); Mean Corpuscular Volume 92.8 fl (80-94); Mean Platelet Volume 11.2 fL (7.4-10.4); Monocytes # 0.4 10^3/uL (0.2-0.9); Monocytes % 3.5 %; Neutrophils # 10.28 10^3/uL (1.8-7.7); Neutrophils % 94.5 %; Nucleated Red Blood Cells % 0 %; Platelet Count 236 10^3/cmm (130-400); Red Blood Count 3.87 10^6/uL (4.1-5.3); White Blood Count 10.9 10^3/uL (4.0-10.0)
[2021-12-19 04:56] LABS: Alanine Aminotransferase 14 U/L (0-41); Albumin Level 3.1 g/dL (3.5-5.2); Alkaline Phosphatase 62 IU/L (40-130); Anion Gap 14.4 (5-19); Aspartate Amino Transferase 11 U/L (0-40); Blood Urea Nitrogen 29 mg/dL (8-23); Calcium 8.1 mg/dL (8.5-10.5); Carbon Dioxide 30 mmol/L (22-29); Chloride 100 mmol/L (98-107); Glucose 201 mg/dL (65-115); Osmolality Calculated 302 mOsm/kg (285-295); Potassium 4.4 mmol/L (3.5-5.1); Sodium 140 mmol/L (136-145); Total Bilirubin 0.3 mg/dL (0.15-1.2); Total Protein 5.1 g/dL (6.6-8.7)
[2021-12-19] MEDS: methIMAzole 5 MG Tablet PO (06:11)
[2021-12-19] MEDS: aspirin 81 mg Chew Tablet PO (06:11)
--- NOTE | 2021-12-19 08:08 | XRR_ITS ---
PROCEDURE INFORMATION: Exam: XR Chest Exam date and time: 12/19/2021 8:08 AM Age: 66 years old Clinical indication: Device placement; Ng tube; Additional info: Og placment TECHNIQUE: Imaging protocol: XR of the chest. Views: 1 view. COMPARISON: CR (CHEST, ) 12/18/2021 4:05 AM FINDINGS: Tubes, catheters and devices: An endotracheal tube, nasogastric tube and central venous catheter projects in satisfactory position. Lungs: There is bibasilar pulmonary consolidation more prominently on the left side. This is unchanged. Pleural spaces: Unremarkable. No pleural effusion. No pneumothorax. Heart/Mediastinum: Cardiac silhouette is enlarged but unchanged. Bones/joints: Unremarkable. XR/XR chest 1V portable [id number] IMPRESSION: Stable cardiomegaly and bibasilar pulmonary consolidation.
[2021-12-19] MEDS: budesonide 0.5 mg/2 mL Neb INHALATION ×2 (08:09→20:01)
--- NOTE | 2021-12-19 08:30 | PC.NURSE ---
OG not secure, most hanging out. Tube feeding stopped. Residual checked and discarded. Unable to advance or auscultated correct placement. Removed. Advanced fresh OG. Auscultated correct placement. Xray obtained to conform. ONce confirmation obtained, tube feedings resumed.
[2021-12-19 08:47] LABS: Glucose Point of Care 200 mg/dL (70-110)
[2021-12-19] MEDS: sodium chloride 0.9 % (flush) syringe 10 mL IV ×2 (09:11→18:46)
[2021-12-19] MEDS: pantoprazole 40 mg SDV IVP (09:11)
[2021-12-19] MEDS: insulin lispro 100 unit/1 mL SUBCUT ×4 (09:12→20:25)
[2021-12-19] MEDS: docusate sodium 10 mg/mL (5ml) Liq 100 MG PO ×2 (09:13→18:46)
--- NOTE | 2021-12-19 10:19 | P.PN_ITS ---
Subjective Subjective: He seems to be in somewhat of a holding pattern as far as his ventilatory status goes. He has not particularly improved as far as his oxygen requirement. His minute ventilation stays well below 10, but his sats are only 92% on 57% FiO2 Medications: Reviewed: Yes Vitals/I&O/Wt Last Vital Signs Temp 99 F 12/19/21 07:30 Pulse 76 12/19/21 09:30 Resp 16 12/19/21 09:30 BP 128/65 12/19/21 09:30 Pulse Ox 95 12/19/21 09:30 12/18/21 12/19/21 12/19/21 22:59 06:59 14:59 Intake Total 555 / 832.846 530 / 1362.846 Output Total 1300 / 1300 550 / 1850 Balance -745 / -467.154 -20 / -487.154 Weight last 48 hrs Weight 226 lb 3.2 oz Weight 226 lb 3.2 oz Physical Exam Narrative: Sedated and ventilated sedated and ventilated Resp: OTHER: Coarse bilaterally coarse bilaterally Cardio: OTHER: Regular, regular Urinary Catheter Management: Matias: Cath Placed During This Visit: yes Urethral Indwelling: Yes Reason for Continuing Indwelling Catheter: Not indwelling catheter Urinary Catheter Date of Insertion: 12/16/21 Urinary Catheter Time of Insertion: 15:00 Data : 12/19/21 03:35 12/19/21 03:35 Micro: Microbiology 12/16/21 15:35 Blood Culture - Preliminary Blood Staphylococcus epidermidis Viridans streptococcus group 12/17/21 00:45 Gram Stain - Final Sputum - Endotracheal Tube Aspirate Sputum Culture - Preliminary A&P Assessment and plan (1) CHF (congestive heart failure): Status: Chronic Qualifiers: Heart failure type: diastolic Heart failure chronicity: acute on chronic Qualified Code(s): I50.33 - Acute on chronic diastolic (congestive) heart failure (2) Pneumonia: Status: Acute (3) Acute on chronic respiratory failure with hypoxia and hypercapnia: His ventilatory status does not seem to be improving any. Although he has a ne gative fluid balance, I will go ahead and give him some additional diuresis today. He apparently has some pleural effusions on chest x-ray, and may be slightly fluid overloaded. Status: Acute Attestations Medical Necessity Statement*: As long as he is as long as he is ventilated he will need ICU stay. 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
[2021-12-19] MEDS: FUROsemide 10 mg/mL SDV 4mL 40 MG IVP (11:32)
[2021-12-19 11:34] LABS: Glucose Point of Care 157 mg/dL (70-110)
[2021-12-19 11:44] LABS: Basophils % 0.1 %; Eosinophils % 0.1 %; Hematocrit 34.9 % (42.0-52.0); Lymphocytes # 0.1 10^3/uL (0.8-4.8); Lymphocytes % 0.9 %; Mean Corpuscular HGB Conc 31.5 g/dL (30.0-36.0); Mean Corpuscular Hemoglobin 28.9 pg (28.0-34.0); Mean Corpuscular Volume 91.6 fl (80-94); Mean Platelet Volume 10.6 fL (7.4-10.4); Monocytes # 0.5 10^3/uL (0.2-0.9); Monocytes % 4.3 %; Neutrophils # 10.15 10^3/uL (1.8-7.7); Neutrophils % 94.1 %; Nucleated Red Blood Cells % 0 %; Platelet Count 219 10^3/cmm (130-400); Red Blood Count 3.81 10^6/uL (4.1-5.3); White Blood Count 10.8 10^3/uL (4.0-10.0)
[2021-12-19 12:04] LABS: Anion Gap 9.1 (5-19); Blood Urea Nitrogen 32 mg/dL (8-23); Calcium 8.9 mg/dL (8.5-10.5); Carbon Dioxide 32 mmol/L (22-29); Chloride 105 mmol/L (98-107); Glomerular Filtration Rate 97.3 mL/min (90-130); Glucose 195 mg/dL (65-115); Osmolality Calculated 306 mOsm/kg (285-295); Potassium 4.1 mmol/L (3.5-5.1); Sodium 142 mmol/L (136-145)
--- NOTE | 2021-12-19 14:01 | PC.NURSE ---
Central line dressing changed completed. [place] View Contour Shield dressing applied. Hubs changed.
--- NOTE | 2021-12-19 14:33 | PC.SOCIAL ---
IMM Update pg 2 of IMM updated and reviewed w/ patients life partner since he is intubated. Copy placed in chart. Offered to give # and she states they will get it @ later time if they need it.
[2021-12-19 15:08] LABS: Vancomycin Trough 29.7 ug/mL (10-15)
[2021-12-19] MEDS: dextrose 5%-sod chloride 0.45% 1,000 ML 20 ML IV (16:12)
[2021-12-19] MEDS: sodium chloride 0.9% 500 ML IV (16:13)
[2021-12-19 18:47] LABS: Glucose Point of Care 242 mg/dL (70-110)
--- NOTE | 2021-12-19 19:48 | PC.NURSE ---
Shift Note Pt remains sedated and intubated. Able to maintain Diehl score of 2. Pt follows commands. He has tried to talk around ETT. Fentanyl and Versed infusing , see MAR. Tube Feedings advanced to 20ml/hr after fresh OG placement. CVP 4-12 today. Pt remains afebrile. Sister and significant other both called for updates this shift, updates given. Lasix admin. He had 1900ml of urine output. Bathing provided today. All IV tubing, CVP tubing, CVL dressing and caps changed today. Frequent safety and comfort rounds continue. Orders and/or nursing care completed as indicated. Patient monitored for response to intervention and treatment(s). Education provided includes Fentany, vent, and oxygenation . Patient and/or sales representative sales manager verbalized or/and shook head yes to understanding ongoing care and medications. . Will continue to monitor.
[2021-12-19] MEDS: atorvastatin 40 mg Tablet 20 MG PO (20:03)
[2021-12-19 20:40] LABS: Glucose Point of Care 226 mg/dL (70-110)
[2021-12-20] VITALS (42 sets, daily range): BP systolic 123–186; BP diastolic 68–118; PULSE 55–158; RESP 10–24; O2SAT 81–96
[2021-12-20] MEDS: vancomycin 1,500 MG/300 ML PIGGYBACK 200 MG IV ×2 (00:58→19:41)
[2021-12-20] MEDS: cefepime 1,000 MG in sodium chloride 0.9% (plus) 50 ML 100 MG IV ×2 (03:04→15:03)
[2021-12-20] MEDS: ipratropium-albuterol 3 mL Neb INHALATION ×4 (03:19→20:13)
[2021-12-20 04:04] LABS: Hematocrit 36.2 % (42.0-52.0); Hemoglobin 11.3 g/dL (11.7-16.6); Lymphocytes # 0.1 10^3/uL (0.8-4.8); Lymphocytes % 1.6 %; Mean Corpuscular HGB Conc 31.2 g/dL (30.0-36.0); Mean Corpuscular Hemoglobin 28.7 pg (28.0-34.0); Mean Corpuscular Volume 91.9 fl (80-94); Mean Platelet Volume 10.9 fL (7.4-10.4); Monocytes # 0.4 10^3/uL (0.2-0.9); Monocytes % 4.4 %; Neutrophils # 8.39 10^3/uL (1.8-7.7); Neutrophils % 93.6 %; Nucleated Red Blood Cells % 0 %; Platelet Count 207 10^3/cmm (130-400); Red Blood Count 3.94 10^6/uL (4.1-5.3); Red Cell Distribution Width 18.8 % (12.1-15.1)
[2021-12-20 04:24] LABS: Anion Gap 11.5 (5-19); Blood Urea Nitrogen 36 mg/dL (8-23); Calcium 9.5 mg/dL (8.5-10.5); Carbon Dioxide 33 mmol/L (22-29); Chloride 103 mmol/L (98-107); Glomerular Filtration Rate 97.3 mL/min (90-130); Glucose 197 mg/dL (65-115); Osmolality Calculated 310 mOsm/kg (285-295); Potassium 4.5 mmol/L (3.5-5.1); Sodium 143 mmol/L (136-145)
[2021-12-20] MEDS: aspirin 81 mg Chew Tablet PO (05:38)
[2021-12-20] MEDS: sodium chloride 0.9 % (flush) syringe 10 mL IV ×2 (05:38→18:31)
[2021-12-20] MEDS: methIMAzole 5 MG Tablet PO (05:38)
--- NOTE | 2021-12-20 07:17 | XR_ITS ---
WS: [id number] CHEST XRAY TECHNIQUE: Portable chest. CLINICAL INFORMATION: pleural effusions COMPARISON: December 19, 2021 FINDINGS: ETT with tip above the natacha. Enteric tube with tip below the diaphragm. RIGHT central reji ous catheter with tip in distal SVC. Heart: Cardiomegaly. Lungs: Small bilateral pleural effusions. Slight bibasilar atelectasis. Improved aeration LEFT lower lobe today. Bones: Normal visualized bony structures. XR/XR chest 1V portable [id number] IMPRESSION: 1. Stable cardiomegaly. 2. Small bilateral pleural effusions. Slight bibasilar atelectasis. Improved a eration LEFT lower lobe today.
[2021-12-20 07:56] LABS: Glucose Point of Care 205 mg/dL (70-110)
[2021-12-20] MEDS: budesonide 0.5 mg/2 mL Neb INHALATION ×2 (08:17→20:13)
--- NOTE | 2021-12-20 08:52 | PM.PN ---
Subjective Subjective: Nagi is sedated on the ventilator. Events of this week and were reviewed. He does come awake, with minimal stimulation and can follow direction. Medications: Reviewed: Yes Vitals/I&O/Wt Last Vital Signs Temp 99 F 12/19/21 07:30 Pulse 79 12/20/21 07:32 Resp 16 12/20/21 07:32 BP 143/82 12/20/21 06:00 Pulse Ox 95 12/20/21 07:32 12/19/21 12/20/21 12/20/21 22:59 06:59 14:59 Intake Total 1795.267 / 1815.267 646 / 2461.267 Output Total 1900 / 1900 850 / 2750 Balance -104.733 / -84.733 -204 / -288.733 Weight last 48 hrs Weight 95.481 kg Weight 102.603 kg Physical Exam Narrative: General exam is a sedated male on the ventilator, awakens easily Orogastric tube noted. Neck is supple no lymphadenopathy or thyromegaly Cardiovascular regular rate and rhythm, heart sounds distant Lungs clear but with diminished breath sounds Abdomen is soft nontender positive bowel sounds Extremities no cyanosis clubbing. No edema Urinary Catheter Management: Matias: Cath Placed During This Visit: yes Urethral Indwelling: Yes Reason for Continuing Indwelling Catheter: Accurate Measurement of Urinary Output in Critically Ill Patients Urinary Catheter Date of Insertion: 12/16/21 Urinary Catheter Time of Insertion: 15:00 Data : 12/20/21 03:19 12/20/21 03:19 Micro: Microbiology 12/16/21 15:35 Blood Culture - Preliminary Blood Staphylococcus epidermidis Viridans streptococcus group 12/17/21 00:45 Gram Stain - Final Sputum - Endotracheal Tube Aspirate Sputum Culture - Final A&P Assessment and plan (1) Acute metabolic encephalopathy: Likely secondary to hypercapnic hypoxic respiratory failure with bradycardia and hypoglycemia. CT head no acute findings This appears to have resolved. Status: Acute (2) Acute on chronic respiratory failure with hypoxia and hypercapnia: Requiring endotracheal intubation. Initially required a high amount of FiO2 but with adjustment of PEEP, which is now 10 his FiO2 requirement has decreased to 45%. We will try to lower his PEEP and potentially extubate today or tomorrow. Has known chronic obstructive and restrictive lung disease. Presentation consistent with acute COPD exacerbation Continue IV steroids and with concern of bibasilar pneumonia cefepime and vancomycin were also initiated. He does have some secretions. Cultures negative to date. Pulmonary toilet to continue Sedation with fentanyl and Versed Secondary to fluid overload, that appeared relatively minor we will give him 60 mg of IV Lasix today to facilitate extubation soon. Blood cultures demonstrated likely contaminant with staph epidermidis and [place] strep growing in the same bottle Status: Acute (3) Bradycardia: Chronically on amiodarone and betablockade due to atrial fibrillation history, no recent medication changes apparent Holding amiodarone and metoprolol secondary to bradycardia Dopamine has been able to be weaned off On presentation heart rate was in the 30s Watch for any recurrence of significant bradycardia Consider reinitiation of amiodarone at lower dose, 100 mg daily. Status: Acute (4) CHF (congestive heart failure): Lasix 60 mg IV today. Secondary to borderline hypotension Entresto held on admission. Status: Chronic Qualifiers: Heart failure type: diastolic Heart failure chronicity: acute on chronic Qualified Code(s): I50.33 - Acute on chronic diastolic (congestive) heart failure (5) Pneumonia: Continue vancomycin and cefepime Covid PCR negative Status: Acute (6) Coronavirus infection: [id number] infection identified 12/05/2021 via PCR testing. He had SARS-CoV-2 infection in 09/2021; did not require intubation then. Status: Acute (7) COPD (chronic obstructive pulmonary disease): See findings under respiratory failure Status: Chronic Qualifiers: COPD type: COPD with acute exacerbation Qualified Code(s): J44.1 - Chronic obstructive pulmonary disease with (acute) exacerbation (8) Diabetes mellitus, type II: Chronically on long acting and short acting insulin plus sitagliptin. Initial blood sugars in the field were low necessitating administration of D50 and D10 in route by EMS. On arrival here blood sugar was greater than 200 but he subsequently recurrent acute hypoglycemia with sugars at 60. D10 was given initially. D5 he is receiving currently will be discontinued. Continue glucerna at 20 cc an hour. Will need to hold if extubation likely. Holding long acting insulin Serial accuchecks Status: Chronic Qualifiers: Diabetes mellitus ferry terminal agent insulin use: with longterm use Diabetes mellitus complication status: with hypoglycemia Diabetes mellitus complication detail: without coma Qualified Code(s): E11.649 - Type 2 diabetes mellitus with hypoglycemia without coma; Z79.4 - terminal operator (current) use of insulin (9) CAD (coronary artery disease): History of stent x 2 previously, last cath in 07/2021 with patent stents, chronically on aspirin and statin Troponin above normal range but with negative delta Continue aspirin and statin Status: Chronic Qualifiers: Coronary Disease-Associated Artery/Lesion type: [place] artery [place] vs. transplanted heart: [place] heart Associated angina: without angina Qualified Code(s): I25.10 - Atherosclerotic heart disease of [place] coronary artery without angina pectoris (10) Hypertension: On entresto, betablocker and diuretic chronically Initial blood pressures low normal range; after intubation, blood pressures as high as 190s systolic. Improved with sedation (which exacerbated bradycardia). With adjustments to sedation given, blood pressure has improved. Holding home antihypertensive agents at present time Monitor need to add antihypertensives back, especially as sedation is weaned Status: Chronic Qualifiers: Hypertension type: primary hypertension Qualified Code(s): I10 - Essential (primary) hypertension (11) Hyperthyroidism: Continue methimazole Status: Chronic (12) Nicotine addiction: Status: Acute Qualifiers: Nicotine product type: cigarettes Substance use status: other nicotine-induced disorder Qualified Code(s): F17.218 - Nicotine dependence, cigarettes, with other nicotine-induced disorders (13) BMI 30.0-30.9,adult: Status: Chronic Plan Lovenox for DVT prophylaxis Full code Attestations Medical Necessity Statement*: Needs continued hospitalization secondary to respiratory failure requiring mechanical ventilation. Also need treatment of pneumonia with IV antibiotics. Critical Care Time: The high probability of a clinically significant, sudden or life threatening deterioration of the patient's [pulmonary, cardiac, infectious disease system(s) required my full and direct attention, intervention and personal management. The critical care time is as shown. 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 [place] Diagnoses Acute metabolic encephalopathy G93.41 Acute on chronic respiratory failure with hypoxia and hypercapnia J96.21; J96.22 Bradycardia R00.1 CHF (congestive heart failure) I50.33 Heart failure type: diastolic Heart failure chronicity: acute on chronic Pneumonia J18.9 Coronavirus infection B34.2 COPD (chronic obstructive pulmonary disease) J44.1 COPD type: COPD with acute exacerbation Diabetes mellitus, type II E11.649; Z79.4 Diabetes mellitus longterm insulin use: with longterm use Diabetes mellitus complication status: with hypoglycemia Diabetes mellitus complication detail: without coma CAD (coronary artery disease) I25.10 Coronary Disease-Associated Artery/Lesion type: [place] artery [place] vs. transplanted heart: [place] heart Associated angina: without angina Hypertension I10 Hypertension type: primary hypertension Hyperthyroidism E05.90 Nicotine addiction F17.218 Nicotine product type: cigarettes Substance use status: other nicotine-induced disorder BMI 30.0-30.9,adult Z68.30
--- NOTE | 2021-12-20 08:58 | PC.NUTR ---
TF consult received. Recommend increasing Glucerna 1.2 @ 20 mls/hr, 10 mls Q8H as tolerated, until goal rate of 45 kcals/hr is reached; with water flushes of 100 mls Q4H or per MD discretion. Details in RD assessment.
[2021-12-20] MEDS: FUROsemide 10 mg/mL SDV 10mL 60 MG IVP (09:49)
[2021-12-20] MEDS: insulin lispro 100 unit/1 mL SUBCUT ×5 (09:49→21:34)
[2021-12-20] MEDS: amiodarone 200 mg Tablet 100 MG PO (09:50)
[2021-12-20] MEDS: pantoprazole 40 mg SDV IVP (09:50)
[2021-12-20] MEDS: docusate sodium 10 mg/mL (5ml) Liq 100 MG PO ×2 (09:51→18:31)
--- NOTE | 2021-12-20 10:07 | PC.NURSE ---
Medication administration delay related to care of other critical patients
--- NOTE | 2021-12-20 10:18 | PC.CHAP ---
Pastoral Care Encounter/Spiritual Assessment Type of Contact [] Declined photonic laboratory technician visit [] Patient/Family/Request visit [] Outpatient visit [] Follow-up visit [] Physician referral [] Code/Alert [x] Routine visit [] Staff referral [] Actively dying [] Patient sleeping [] Family support [] [] Out of room [] Palliative care [] [] Receiving care in room [] Pre-surgical visit [] Trauma [] Long length of stay [x] ICU visit [] Other: Relational/Emotional Strength [] Patient feels connected with others/family/visitors/staff [] Distress [] Loneliness/isolation [] Abandonment Spirituality of Patient [] Person of Margret [] Attends Jewish of their Margret [] Believes in Prayer [] Reads Bible or Rastafarian materials [] There are Spiritual issues to be addressed Medical Pathologist Interventions [x] Prayer [] Active listening [] Non-anxious presence [] Spiritual/emotional support [] Crisis/trauma care [] Spiritual counseling [] Bereavement support [] Provided bereavement packet [] Provided Bible/devotional materials [] Provided toy/stuffed animal, coloring book to patient or family member [] Provided Communion [] Anointing/[place] [] Salvation [x] Completed spiritual assessment [] Other: Impact on Illness or Injury [] Angry [] Fearful [] Anxious [] Often cries [] Exhaustion [] Unable to work [] Unable to attend restorationism [] Unable to walk/stand [] Unable to read [] Unable to drive [] Unable to eat/drink [] Unable to sleep [] Unable to be with family [] Patient intubated [] Other: Summary Time spent with patient
[2021-12-20 11:56] LABS: Glucose Point of Care 235 mg/dL (70-110)
[2021-12-20 14:21] LABS: ABG PH Result 7.38 (7.35-7.45); Alveolar-Arterial Oxygen Gradi 0.4 mmHg (5-10); Arterial Blood Gas Hematocrit 38.7 % (42-52); Base Excess ABG 10.4 mmol/L (-2.0-2.0); Blood Gas Allen Test Pos; Blood Gas Operator Identificat BD; Blood Gas Sample Site Radial, right; Blood Gas Sample Type Arterial; Carboxyhemoglobin 1.1 %THgb (0.4-20.1); HCO3 ABG 38.1 mmol/L (22-26); HGB O2 Sat 90.7 % (95-100); Ionized Calcium Level - ABG 1.3 mmol/L (1.1-1.4); Methemoglobin 1.1 % (0.4-1.5); Oxygen Device VENT; Oxygen Saturation ABG 92.8; PO2 ABG 68.9 mmHg (80.0-100.0); Potassium Level - ABG 4.2 mmol/L (3.5-5.0); Total Hemoglobin 12.6 g/dL (14-18)
[2021-12-20 14:22] LABS: ABG PCO2 64.8 mmHg (35-45)
--- NOTE | 2021-12-20 14:40 | PC.NURSE ---
Pt extubated. Og removed. Fentanyl gtt off. Pt on Heated high flow at 50 liters and 50%.
--- NOTE | 2021-12-20 15:10 | PC.NURSE ---
Pt not tolerating the Heated high flow. Heart rate 145, BP 186/100. O2 sats in low 80's. RT, Mariann notified. RT here. Pt switched to BIPa at 50% 21/08. Heart rate and BP decreased and sats improved. Pt became calmer.
[2021-12-20] MEDS: potassium chloride ER 20 mEq Tablet PO ×2 (15:44)
[2021-12-20] MEDS: FUROsemide 10 mg/mL SDV 4mL 40 MG IVP ×2 (15:46→19:39)
--- NOTE | 2021-12-20 15:55 | PC.NURSE ---
Fentanyl gtt, 215.783ml and Versed gtt, 98.7ml. wasted. Witnessed by Xi Santana RN
[2021-12-20 16:29] LABS: Glucose Point of Care 196 mg/dL (70-110)
--- NOTE | 2021-12-20 18:00 | PC.NURSE ---
Life partner Kalyn called to check on pt. Update given: Pt extubated, on Bipap, still needs Lasix to get extra fluid off. Pt requesting his glasses.
--- NOTE | 2021-12-20 18:47 | PM.EVENT ---
Event Note Event Note: Patient was able to be extubated this afternoon. He had received 60 mg of Lasix this morning and I gave him an additional 40 mg this afternoon. He had a total of approximately 2800 mL of urine output today. He is doing better presently. He did require being placed on BiPAP after extubation. He was initially quite tachycardic but heart rate has improved through the day. He does not seem to be able to hold onto the knowledge that he has been intubated and here for several days having been told the same several times. At the present time he is much more alert, fidgety but will follow commands. He is less edematous than he was earlier today when I originally saw him. Continues to have crackles bilaterally but able to talk in 4-5 word sentences. We will see how he does overnight. He is asking to speak to his sister and we will work on arranging that. I am going to keep him with sips and chips tonight and hopefully be able to start him on some breakfast tomorrow if he does okay.
--- NOTE | 2021-12-20 19:19 | PC.NURSE ---
Shift Note Pt extubated this afternoon. Heated high flow tried, was not tolerated as evidenced by his vital signs. He is now using BiPap at 50%. He is oxygenating well, O2 sats above 90% when he leaves the mask alone. He answers question appropriately but still has some confusion as he repeats his questions a various times. He had Lasix admin twice this shift, see MR. He has had almost 2800ml urine output. Frequent safety and comfort rounds continue. Orders and/or nursing care completed as indicated. Patient monitored for response to intervention and treatment(s). Education provided includes BiPap, Lasix and plan of care. Patient and/or publications sales representative verbalizes understanding of plan of care and medications.. Will continue to monitor.
--- NOTE | 2021-12-20 19:53 | PC.NURSE ---
Pt. heart rate and blood pressure rising and sustaining. Heart rate anywhere from 130-160. Called Dr. Berry and recieved orders.
[2021-12-20] MEDS: metoprolol tartrate 1 mg/1 mL SDV 5 mL 5 MG IVP ×2 (19:58→20:16)
[2021-12-20 21:30] LABS: Glucose Point of Care 143 mg/dL (70-110)
[2021-12-20] MEDS: atorvastatin 40 mg Tablet 20 MG PO (22:52)
--- NOTE | 2021-12-20 23:38 | PC.NURSE ---
CVP through distal port of central line.
[2021-12-21] VITALS (39 sets, daily range): BP systolic 131–189; BP diastolic 82–117; PULSE 57–137; RESP 11–28; TEMP 36.5–36.8; O2SAT 86–96
--- NOTE | 2021-12-21 02:17 | PC.NURSE ---
Pt takes frequent sips of water while on 7L per nasal cannula. Pt unable to maintain sats of greater than 84% if off of bipap for 5 or more minutes.
[2021-12-21 03:37] LABS: Basophils % 0.1 %; Hematocrit 41.5 % (42.0-52.0); Hemoglobin 12.8 g/dL (11.7-16.6); Lymphocytes # 0.1 10^3/uL (0.8-4.8); Lymphocytes % 0.9 %; Mean Corpuscular HGB Conc 30.8 g/dL (30.0-36.0); Mean Corpuscular Hemoglobin 28.6 pg (28.0-34.0); Mean Corpuscular Volume 92.8 fl (80-94); Mean Platelet Volume 10.2 fL (7.4-10.4); Monocytes # 0.6 10^3/uL (0.2-0.9); Monocytes % 4.7 %; Neutrophils # 12.18 10^3/uL (1.8-7.7); Neutrophils % 93.8 %; Nucleated Red Blood Cells % 0 %; Platelet Count 229 10^3/cmm (130-400); Red Blood Count 4.47 10^6/uL (4.1-5.3); Red Cell Distribution Width 18.9 % (12.1-15.1)
[2021-12-21] MEDS: ipratropium-albuterol 3 mL Neb INHALATION ×4 (03:37→20:16)
[2021-12-21 03:53] LABS: Alanine Aminotransferase 13 U/L (0-41); Albumin Level 3.7 g/dL (3.5-5.2); Alkaline Phosphatase 71 IU/L (40-130); Anion Gap 14.4 (5-19); Aspartate Amino Transferase 9 U/L (0-40); Blood Urea Nitrogen 39 mg/dL (8-23); Calcium 8.7 mg/dL (8.5-10.5); Carbon Dioxide 36 mmol/L (22-29); Chloride 101 mmol/L (98-107); Globulin 2.2 g/dL (1.3-4.6); Glomerular Filtration Rate 75.2 mL/min (90-130); Glucose 201 mg/dL (65-115); Osmolality Calculated 319 mOsm/kg (285-295); Potassium 4.4 mmol/L (3.5-5.1); Sodium 147 mmol/L (136-145); Total Bilirubin 0.4 mg/dL (0.15-1.2); Total Protein 5.9 g/dL (6.6-8.7)
[2021-12-21 04:10] LABS: ABG PCO2 58.4 mmHg (35-45); ABG PH Result 7.41 (7.35-7.45); Arterial Blood Gas Hematocrit 40.1 % (42-52); Base Excess ABG 10.4 mmol/L (-2.0-2.0); Blood Gas Allen Test Pos; Blood Gas Sample Site Radial, right; Blood Gas Sample Type Arterial; HCO3 ABG 37.2 mmol/L (22-26); Oxygen Device BIPAP
--- NOTE | 2021-12-21 04:23 | PC.NURSE ---
Pt sleeping for the first time this shift. Will assess lung sounds and temperature when pt wakes.
[2021-12-21] MEDS: cefepime 1,000 MG in sodium chloride 0.9% (plus) 50 ML 100 MG IV ×2 (04:31→14:39)
[2021-12-21] MEDS: aspirin 81 mg Chew Tablet PO (06:13)
[2021-12-21] MEDS: methIMAzole 5 MG Tablet PO (06:13)
[2021-12-21] MEDS: sodium chloride 0.9 % (flush) syringe 10 mL IV (06:14)
[2021-12-21 07:32] LABS: Glucose Point of Care 203 mg/dL (70-110)
--- NOTE | 2021-12-21 07:32 | PM.PN ---
Subjective Subjective: Nagi reports he is feeling fairly good. Does not feel real short of breath. He was extubated yesterday. Does not remember why he really came in. Denies any palpitations or chest discomfort currently. Medications: Reviewed: Yes Vitals/I&O/Wt Last Vital Signs Temp 99 F 12/19/21 07:30 Pulse 133 H 12/21/21 06:01 Resp 13 12/21/21 06:01 BP 139/102 12/21/21 06:01 Pulse Ox 92 12/21/21 06:01 12/20/21 12/21/21 12/21/21 22:59 06:59 14:59 Intake Total 390 / 225.333 1192.767 / 2005.284 Output Total 2750 / 3750 800 / 4550 Balance -2360 / -2944.483 399.767 / -2544.716 Weight last 48 hrs Weight 90.991 kg Weight 95.481 kg Physical Exam Narrative: General exam awake, alert and oriented Neck is supple no lymphadenopathy or thyromegaly Cardiovascular regular rate and rhythm, heart sounds distant Lungs clear but with diminished breath sounds Abdomen is soft nontender positive bowel sounds Extremities no cyanosis clubbing. No edema Urinary Catheter Management: Matias: Cath Placed During This Visit: yes Urethral Indwelling: Yes Reason for Continuing Indwelling Catheter: Accurate Measurement of Urinary Output in Critically Ill Patients Urinary Catheter Date of Insertion: 12/16/21 Urinary Catheter Time of Insertion: 15:00 Data : 12/21/21 03:17 12/21/21 03:17 A&P Assessment and plan (1) Acute metabolic encephalopathy: Likely secondary to hypercapnic hypoxic respiratory failure with bradycardia and hypoglycemia. CT head no acute findings This appears to have resolved. Status: Acute (2) Acute on chronic respiratory failure with hypoxia and hypercapnia: Requiring endotracheal intubation. Extubated on December 20 Has known chronic obstructive and restrictive lung disease. Presentation consistent with acute COPD exacerbation Discontinue IV steroids, changed to prednisone With concern of bibasilar pneumonia cefepime and vancomycin were also initiated. Cultures negative to date. Pulmonary toilet to continue Secondary to fluid overload he was diuresed. He appears well compensated today. . Blood cultures demonstrated likely contaminant with staph epidermidis and viridans strep growing in the same bottle Status: Acute (3) Bradycardia: Chronically on amiodarone and betablockade due to atrial fibrillation history, no recent medication changes apparent Amiodarone drip restarted secondary to atrial fibrillation with rapid ventricular rate. He has received a few doses of IV metoprolol. Dopamine has been able to be weaned off On presentation heart rate was in the 30s Watch for any recurrence of significant bradycardia Status: Acute (4) CHF (congestive heart failure): Compensated currently. Hold any further diuresis today. Secondary to borderline hypotension Entresto held on admission. Status: Chronic Qualifiers: Heart failure type: diastolic Heart failure chronicity: acute on chronic Qualified Code(s): I50.33 - Acute on chronic diastolic (congestive) heart failure (5) Pneumonia: Continue vancomycin and cefepime Covid PCR negative Check MRSA PCR. If negative discontinue vancomycin. Status: Acute (6) Coronavirus infection: [id number] infection identified 12/05/2021 via PCR testing. He had SARS-CoV-2 infection in 09/2021; did not require intubation then. Status: Acute (7) COPD (chronic obstructive pulmonary disease): See findings under respiratory failure Status: Chronic Qualifiers: COPD type: COPD with acute exacerbation Qualified Code(s): J44.1 - Chronic obstructive pulmonary disease with (acute) exacerbation (8) Diabetes mellitus, type II: Chronically on long acting and short acting insulin plus sitagliptin. Initial blood sugars in the field were low necessitating administration of D50 and D10 in route by EMS. On arrival here blood sugar was greater than 200 but he subsequently recurrent acute hypoglycemia with sugars at 60. D10 was given initially. Glucose drip has since been discontinued. 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 transplanted heart: tanana heart Associated angina: without angina Qualified Code(s): I25.10 - Atherosclerotic heart disease of tan[place] coronary artery without angina pectoris (10) Hypertension: On entresto, betablocker and diuretic chronically Initial blood pressures low normal range; after intubation, blood pressures as high as 190s systolic. Improved with sedation (which exacerbated bradycardia). With adjustments to sedation given, blood pressure has improved. Losartan 50 mg p.o. daily starting today Status: Chronic Qualifiers: Hypertension type: primary hypertension Qualified Code(s): I10 - Essential (primary) hypertension (11) Hyperthyroidism: Continue methimazole Status: Chronic (12) Nicotine addiction: Status: Acute Qualifiers: Nicotine product type: cigarettes Substance use status: other nicotine-induced disorder Qualified Code(s): F17.218 - Nicotine dependence, cigarettes, with other nicotine-induced disorders (13) BMI 30.0-30.9,adult: Status: Chronic Plan Lovenox for DVT prophylaxis Full code Attestations Medical Necessity Statement*: Needs continued hospitalization for IV antibiotics for pneumonia close monitoring in this patient with COPD exacerbation recently extubated. 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 transplanted heart: tanana heart Associated angina: without angina Hypertension I10 Hypertension type: primary hypertension Hyperthyroidism E05.90 Nicotine addiction F17.218 Nicotine product type: cigarettes Substance use status: other nicotine-induced disorder BMI 30.0-30.9,adult Z68.30
[2021-12-21] MEDS: metoprolol tartrate 1 mg/1 mL SDV 5 mL 5 MG IVP (07:37)
[2021-12-21] MEDS: insulin lispro 100 unit/1 mL SUBCUT ×4 (07:38→20:22)
[2021-12-21] MEDS: pantoprazole 40 mg SDV IVP (07:57)
[2021-12-21] MEDS: docusate sodium 10 mg/mL (5ml) Liq 100 MG PO ×2 (07:57→16:58)
[2021-12-21] MEDS: losartan 50 mg Tablet PO (08:02)
[2021-12-21] MEDS: predniSONE 20 mg Tablet 60 MG PO (08:02)
[2021-12-21] MEDS: budesonide 0.5 mg/2 mL Neb INHALATION ×2 (09:30→20:16)
--- NOTE | 2021-12-21 09:43 | P.CONIM_ITS ---
Providers/Reason For Consult Consulting Physician/Specialty*: Dr. Meneses, cardiology Reason for Consult*: A. fib with RVR, bradycardia on presentation Attending Physician: Mikie Berry MD Primary Care Provider: Nasreen Gomez History of Present Illness History of Present Illness Nagi Cuellar is a 66 year old male with PMHx of CAD s/p LAD stent in 2005 and then in 2010, COPD, diastolic CHF, chronic smoker, HTN, DAYNE, dyslipidemia. He also has h/o GI bleed and paroxysmal atrial fibrillation who was admitted with decreased responsiveness low blood sugar and bradycardia on 16 December 2021 he was placed on BiPAP and subsequently required intubation. Heart rate was in mid 30s and rhythm was sinus bradycardia. Patient was initially placed on low-dose dopamine for bradycardia and his home amiodarone metoprolol was held. Entresto was initially held because of low blood pressure. He he is also being treated treated for pneumonia. He went into A. fib with RVR and needed amiodarone drip gtt. overnight. This morning he has already conv erted into sinus rhythm at the time of evaluation. Patient feels better this morning. Patient was extubated on 20 December. Review of Systems Const: Reports: fatigue, malaise and daytime sleepiness; Denies: fever(s) Card: Reports: edema and swelling of feet/ankles; Denies: chest pain Resp: Reports: dyspnea, productive cough and non-productive cough GI: Denies: abdominal pain, vomiting or diarrhea : Reports: oliguria Musc: Denies: neck pain or extremity pain Skin/Breast: Denies: pruritus or sores Neuro: Denies: headache(s) or weakness in extremities Endo: Reports: tired all the time Dov/Lymph: Reports: easy bruising Medications/Allergies Home Medications Medication Instructions Recorded Confirmed Last Taken Type omeprazole 40 mg capsule,delayed 40 mg PO QAM 07/18/21 12/16/21 11/02/21 History release sitagliptin 50 mg tablet (Januvia) 50 mg PO QAM tab 07/23/21 12/16/21 11/02/21 History Vitamin B12 Gummies 1 - 2 tab PO DAILY 08/02/21 12/16/21 11/02/21 History aspirin 81 mg tablet,delayed 81 mg PO QAM 08/12/21 12/16/21 11/02/21 History release benzonatate 100 mg capsule 100 mg PO TID PRN #14 cap 08/17/21 12/16/21 Unknown Rx insulin glargine 100 unit/mL (3 20 unit SUBCUT BEDTIME ml 09/21/21 12/16/21 11/01/21 History mL) subcutaneous pen (Lantus Solostar U-100 Insulin) trazodone 50 mg tablet 100 mg PO BEDTIME tab 09/21/21 12/16/21 11/01/21 History rosuvastatin 20 mg tablet 10 mg PO DAILY 10/01/21 12/16/21 11/01/21 History sacubitril 24 mg-valsartan 26 mg 1 tab PO BID 10/01/21 12/16/21 11/02/21 History tablet (Entresto) furosemide 40 mg tablet 40 mg PO DAILY #0 tab 10/08/21 12/16/21 11/02/21 Rx revefenacin 175 mcg/3 mL solution 175 mcg (3 mL) INHALATION DAILY 10/15/21 12/16/21 11/02/21 Rx for nebulization (Yupelri) #90 ml insulin lispro 100 unit/mL See Rx Instructions .ROUTE 11/02/21 12/16/21 Unknown History subcutaneous pen (Humalog KwikPen .COMPLEX MDD see pharmacy comment (U-100) Insulin) albuterol sulfate 90 mcg/actuation 1 inh INHALATION Q6H PRN #8.5 g 12/01/21 12/16/21 Unknown Rx aerosol inhaler formoterol fumarate 20 mcg/2 mL 2 ml INHALATION BID #120 ml 12/01/21 12/16/21 Unknown Rx solution for nebulization (Perforomist) ipratropium 20 mcg-albuterol 100 1 puff INHALATION Q6H #4 g 12/01/21 12/16/21 Unknown Rx mcg/actuation mist for inhalation (Combivent Respimat) metoprolol tartrate 50 mg tablet 50 mg PO BID 90 Days #180 tab 12/01/21 12/16/21 Unknown Rx potassium chloride 20 mEq 20 meq PO DAILY 12/01/21 12/16/21 Unknown History tablet,extended release(part/cryst) methimazole 5 mg tablet 5 mg PO QAM #0 tab 12/06/21 12/16/21 11/02/21 Rx amiodarone 200 mg tablet (Pacerone) 200 mg PO DAILY 12/16/21 12/16/21 Unknown History Allergies Allergy/AdvReac Type Severity Reaction Status Date / Time No Known Allergies Allergy Verified 12/16/21 13:50 Current Medications Generic Name Dose Route Start Last Admin Trade Name Peteq PRN Reason Stop Dose Admin Albuterol/Ipratropium 3 ml 12/16/21 21:00 12/21/21 09:30 Ipratropium-Albuterol 3 Ml Neb INHALATION 3 ml Q6H.RESPIRATORY ELLIE Administration Aspirin 81 mg 12/17/21 06:00 12/21/21 06:13 Aspirin 81 Mg Chew Tablet PO 81 mg QAM ELLIE Administration Atorvastatin Calcium 20 mg 12/16/21 21:00 12/20/21 22:52 Atorvastatin 40 Mg Tablet PO 20 mg BEDTIME ELLIE Administration Budesonide 0.5 mg 12/17/21 08:00 12/21/21 09:30 Budesonide 0.5 Mg/2 Ml Neb INHALATION 0.5 mg BID.RESPIRATORY ELLIE Administration Docusate Sodium 100 mg 12/16/21 18:00 12/21/21 07:57 Docusate Sodium 10 Mg/Ml (5ml) Liq PO 100 mg BID ELLIE Administration Cefepime HCl 1,000 mg/ Sodium 50 mls @ 100 mls/hr 12/17/21 03:00 12/21/21 06:14 Chloride IV Infused Q12H ELLIE Infusion Protocol Sodium Chloride 500 mls @ 0 mls/hr 12/19/21 12:00 12/21/21 07:36 Sodium Chloride 0.9% IV Infused .Q0M ELLIE Infusion As Directed Vancomycin/PEG/NADA/Lysine/Water 1,500 mg in 300 mls @ 200 mls/hr 12/20/21 01:30 12/21/21 06:14 Vancocin IV Infused Q18H ELLIE Infusion Amiodarone HCl 900 mg/ 518 mls @ 17.267 mls/hr 12/21/21 07:00 12/21/21 06:49 Dextrose/ IV Miscellaneous IV Not Given Supplies CONT ELLIE 0.5 MG/MIN Insulin Human Lispro 0 unit 12/16/21 21:00 12/20/21 21:34 Insulin Lispro 100 Unit/1 Ml SUBCUT 1 unit BEDTIME ELLIE Administration Protocol Insulin Human Lispro 0 unit 12/16/21 18:00 12/21/21 07:38 Insulin Lispro 100 Unit/1 Ml SUBCUT 4 unit TIDWM ELLIE Administration Protocol Losartan Potassium 50 mg 12/21/21 09:00 12/21/21 08:02 Losartan 50 Mg Tablet PO 50 mg DAILY ELLIE Administration Methimazole 5 mg 12/17/21 06:00 12/21/21 06:13 Methimazole 5 Mg Tablet PO 5 mg QAM ELLIE Administration Pantoprazole Sodium 40 mg 12/21/21 09:00 12/21/21 07:[address] 40 Mg Tablet PO Not Given DAILY ELLIE Prednisone 60 mg 12/21/21 09:00 12/21/21 08:02 Prednisone 20 Mg Tablet PO 60 mg DAILY ELLIE Administration PFSH Acute PFSH: Medical History (Updated 12/21/21 @ 09:44 by Krystal Meneses MD) Atrial fibrillation paroxysmal long-standing; not on anticoagulation due to history GI bleed 2018 while on eliquis CAD (coronary artery disease) CHF (congestive heart failure) 12/05/2021 EF 65% with grade 1 diastolic dysfunction Chronic kidney disease, stage II (mild) Chronic respiratory failure with hypoxia COPD (chronic obstructive pulmonary disease) Gold Class D, centrolobular Cor pulmonale COVID-19 (~09/2021) Diabetes GERD (gastroesophageal reflux disease) History of Khan's palsy History of GI bleed (~2018) While on eliquis History of PFTs 03/2020 obstructive and restrictive components described History of sleep study (~2012) Hyperlipidemia Hypertension Hyperthyroidism Nicotine addiction DAYNE (obstructive sleep apnea) Surgical History H/O hernia repair (~2015) ventral incisional with repair x 2, in 2016 with mesh and lysis of adhesions History of cardiac catheterization (~07/2021) patent stent per report History of colonoscopy History of coronary artery stent placement x 2 LAD (2005, 2010) History of endoscopy small bowel capsule History of esophagogastroduodenoscopy (EGD) Family History Mother Lung disease COPD Sister Cancer Social History Smoking and tobacco status: current some day smoker cigarettes Years cigarettes smoked: 47 [ Other cigarette details: Hx of 2PPD x 47 Years] Second hand smoke exposure: Yes Alcohol intake: current Alcohol intake frequency: holidays/special occasions only Caregiver/support person: Yes Lives independently: Yes Household members: none Marital status: Single Current occupational status: disabled and 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 NECK: No JVD, carotid bruit. CARDIOVASCULAR SYSTEM: S1-S2 regular. No murmur or gallops. RESPIRATORY SYSTEM: Decreased air entry bilaterally, prolonged expiration. No w heezes rhonchi or rubs heard. ABDOMEN: Soft, nontender and nondistended. Normal bowel sounds present. EXTREMITIES: No edema. No signs of chronic venous insufficiency. 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 No focal neurological deficits. SKIN: Normal turgor and temperature. Urinary Catheter Management: Matias: Cath Placed During This Visit: yes Urethral Indwelling: Yes Reason for Continuing Indwelling Catheter: Accurate Measurement of Urinary Output in Critically Ill Patients Urinary Catheter Date of Insertion: 12/16/21 Urinary Catheter Time of Insertion: 15:00 Data : 12/21/21 03:17 12/21/21 03:17 Other data: 08/05/21 [place] lab Conclusions ? 1. Patent prior proximal LAD stent.. 08/02/21 Echo CONCLUSIONS ?Please note that this is a limited exam to assess LV function. ?No Doppler data was measured during the study therefore the ?scope of the study is limited ?1-Normal left ventricular cavity size. Moderate left ventricular ?hypertrophy. Normal left ventricular systolic function. Left ?ventricular ejection fraction is estimated at 65 %.? Septal ?bounce could be secondary to interventricular conduction delay. ?2-Severe aortic valve calcification. Moderate aortic valve ?stenosis ?3-There is no pericardial effusion. ?4-Due to limited study it cannot be compared with the prior ?echocardiogram. 12/05/21 Echo CONCLUSIONS ?1-Normal left ventricular cavity size. Normal left ventricular ?systolic function. No regional wall motion abnormalities. Left ?ventricular ejection fraction is estimated at 65 %. Grade I/IV ?diastolic dysfunction (abnormal relaxation filling pattern), ?normal to mildly elevated filling pressures. ?2-There is no pericardial effusion. ?3-No significant valve abnormalities. ?4-The right ventricle is normal in size and function.? RVSP ?could not be calculated due to incomplete tricuspid ?regurgitation velocity profile. ?5-Right atrial pressure is around 15? mm of mercury. ?6-No significant change since the prior echocardiogram study of ?07/20/2021. A&P Assessment and plan (1) Atrial fibrillation: Paroxysmal A. flutter on telemetry -Converted to sinus rhythm with amiodarone gtt. and IV push of metoprolol 5 mg. -Remains in sinus rhythm. -On p.o. amiodarone and low-dose p.o. metoprolol -Not on anticoagulation given history of GI bleed Status: Acute (2) Bradycardia: Sinus bradycardia on admission however patient was hypoglycemic as well as confused on admission Status: Acute (3) CHF (congestive heart failure): Heart failure with preserved ejection fraction -appears fairly compensated presently -Length of stay -2.3 L Status: Chronic (4) Acute on chronic respiratory failure with hypoxia and hypercapnia: S/p extubation Status: Acute (5) CAD (coronary artery disease): Status: Chronic (6) Hypertension: Start on amlodipine -Increase losartan to 75 mg daily Status: Chronic Qualifiers: Hypertension type: primary hypertension Qualified Code(s): I10 - Essential (primary) hypertension (7) Diabetes mellitus, type II: Status: Chronic Plan Hypothyroidism Pneumonia Thank you for allowing me to participate in patient's care. Please feel free to call with questions or concerns. 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
[2021-12-21] MEDS: metoprolol tartrate 25 mg Tablet PO ×2 (09:59→20:17)
[2021-12-21] MEDS: amiodarone 200 mg Tablet PO ×2 (10:37→16:57)
--- NOTE | 2021-12-21 10:54 | PC.SOCIAL ---
IMM update IMM updated with patient's S.O. Kalyn. Verbalized an understanding. Initialled, dated, timed, and placed in chart.
[2021-12-21 11:12] LABS: Glucose Point of Care 215 mg/dL (70-110)
[2021-12-21] MEDS: ondansetron 2 mg/ML SDV 2 mL 4 MG IVP (12:16)
[2021-12-21] MEDS: vancomycin 1,500 MG/300 ML PIGGYBACK 200 MG IV (13:06)
[2021-12-21 16:41] LABS: Glucose Point of Care 218 mg/dL (70-110)
[2021-12-21] MEDS: losartan 50 mg Tablet 25 MG PO (17:55)
--- NOTE | 2021-12-21 18:18 | PC.NURSE ---
Shift Note Frequent safety and comfort rounds continue. Orders and/or nursing care completed as indicated. Patient monitored for response to intervention and treatment(s). Education provided includes treatment plan, medications, oxygen. Pt verbalizes understanding. VSS. Pt able to get on side of bed for meals, was up to chair this AM for breakfast. Some anxiety noted at times. No other issues. Will continue to monitor.
[2021-12-21 20:17] LABS: Glucose Point of Care 211 mg/dL (70-110)
[2021-12-21] MEDS: amlodipine 5 mg Tablet PO (20:17)
[2021-12-21] MEDS: atorvastatin 40 mg Tablet 20 MG PO (20:17)
[2021-12-22] VITALS (33 sets, daily range): BP systolic 117–168; BP diastolic 69–93; PULSE 57–88; RESP 12–25; TEMP 36.6–37.1; O2SAT 89–94
[2021-12-22] MEDS: ipratropium-albuterol 3 mL Neb INHALATION ×4 (02:33→22:32)
[2021-12-22] MEDS: cefepime 1,000 MG in sodium chloride 0.9% (plus) 50 ML 100 MG IV ×2 (03:05→14:22)
--- NOTE | 2021-12-22 05:59 | P.PN_ITS ---
Subjective Subjective: Nagi reports he is doing okay. No specific concerns. Breathing okay. He is now down to 5 L of oxygen. Medications: Reviewed: Yes Medication Review Details: Reviewed available records and external pharmacy information; no obvious recent change in amiodarone or beta sweetie dosing. Looks like metoprolol was started in 07/2021 at 25mg bid then increased in 09/2021 to 50mg bid. Had been on dig back in 04/2021. Vitals/I&O/Wt Last Vital Signs Temp 97.9 F 12/22/21 04:00 Pulse 60 12/22/21 03:01 Resp 14 12/22/21 03:01 BP 147/87 12/22/21 03:01 Pulse Ox 90 12/22/21 03:01 12/21/21 12/21/21 12/22/21 14:59 22:59 06:59 Intake Total 1589.944 / 1589.944 770 / 2359.944 120 / 2479.944 Output Total 950 / 950 Balance 1589.944 / 1589.944 -180 / 1409.944 120 / 1529.944 Weight last 48 hrs Weight 90.991 kg Physical Exam Narrative: General exam awake, alert and oriented Neck is supple no lymphadenopathy or thyromegaly Cardiovascular regular rate and rhythm, heart sounds distant Lungs a few faint bilateral wheezes Abdomen is soft nontender positive bowel sounds Extremities no cyanosis clubbing. No edema Urinary Catheter Management: Matias: Cath Placed During This Visit: yes Urethral Indwelling: Yes Reason for Continuing Indwelling Catheter: Accurate Measurement of Urinary O utput in Critically Ill Patients Urinary Catheter Date of Insertion: 12/16/21 Urinary Catheter Time of Insertion: 15:00 Data : 12/21/21 03:17 12/21/21 03:17 Micro: Microbiology 12/21/21 08:04 MRSA Culture - Final Nose 12/16/21 15:40 Blood Culture - Final Blood NO GROWTH AFTER 5 DAYS 12/16/21 15:35 Blood Culture - Final Blood Staphylococcus epidermidis Viridans streptococcus group A&P Assessment and plan (1) Acute metabolic encephalopathy: Likely secondary to hypercapnic hypoxic respiratory failure with bradycardia and hypoglycemia. CT head no acute findings This appears to have resolved. Status: Acute (2) Acute on chronic respiratory failure with hypoxia and hypercapnia: Requiring endotracheal intubation. Extubated on December 20 Has known chronic obstructive and restrictive lung disease. Presentation consistent with acute COPD exacerbation He has been transitioned to p.o. prednisone. With concern of bibasilar pneumonia cefepime and vancomycin were also initiated. Cultures negative to date. MRSA PCR negative. Discontinue vancomycin today. Pulmonary toilet to continue Secondary to fluid overload he was diuresed. He appears well compensated today. . Blood cultures demonstrated likely contaminant with staph epidermidis and viridans strep growing in the same bottle Status: Acute (3) Bradycardia: Chronically on amiodarone and betablockade due to atrial fibrillation history, no recent medication changes apparent Amiodarone drip restarted secondary to atrial fibrillation with rapid ventricular rate. He has received a few doses of IV metoprolol. Dopamine has been able to be weaned off On presentation heart rate was in the 30s No recurrence of bradycardia with reinitiation of amiodarone and metoprolol, lower dose, for atrial fibrillation with rapid ventricular rate. Status: Acute (4) CHF (congestive heart failure): Appears to be compensated currently Secondary to borderline hypotension Entresto held on admission. Await laboratory prior to reinitiating Lasix. Status: Chronic (5) Pneumonia: Continue cefepime Covid PCR negative Vancomycin discontinued as MRSA PCR negative Status: Acute (6) Coronavirus infection: [id number] infection identified 12/05/2021 via PCR testing. He had SARS-CoV-2 infection in 09/2021; did not require intubation then. Status: Acute (7) COPD (chronic obstructive pulmonary disease): See findings under respiratory failure Status: Chronic Qualifiers: COPD type: COPD with acute exacerbation Qualified Code(s): J44.1 - Chronic obstructive pulmonary disease with (acute) exacerbation (8) Diabetes mellitus, type II: Chronically on long acting and short acting insulin plus sitagliptin. Initial blood sugars in the field were low necessitating administration of D50 and D10 in route by EMS. On arrival here blood sugar was greater than 200 but he subsequently recurrent acute hypoglycemia with sugars at 60. D10 was given ini tially. Glucose drip has since been discontinued. Now initiating a consistent carb diet, mild sliding scale insulin Status: Chronic (9) CAD (coronary artery disease): History of stent x 2 previously, last cath in 07/2021 with patent stents, chronically on aspirin and statin Troponin above normal range but with negative delta Continue aspirin and statin Status: Chronic (10) Hypertension: On entresto, betablocker and diuretic chronically Initial blood pressures low normal range; after intubation, blood pressures as high as 190s systolic. Improved with sedation (which exacerbated bradycardia). With adjustments to sedation given, blood pressure has improved. Now on losartan 75 mg daily. Norvasc added by cardiology Overall control improved Status: Chronic Qualifiers: Hypertension type: primary hypertension Qualified Code(s): I10 - Essential (primary) hypertension (11) Hyperthyroidism: Continue methimazole Status: Chronic (12) Nicotine addiction: Status: Acute Qualifiers: Nicotine product type: cigarettes Substance use status: other nicotine- induced disorder Qualified Code(s): F17.218 - Nicotine dependence, cigarettes, with other nicotine-induced disorders (13) BMI 30.0-30.9,adult: Status: Chronic Plan Lovenox for DVT prophylaxis Full code Start mobilizing with physical therapy. Attestations Medical Necessity Statement*: Needs continued hospital stay for treatment of respiratory failure, pneumonia with IV antibiotics. 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 [facility] Fwd Diagnoses Acute metabolic encephalopathy G93.41 Acute on chronic respiratory failure with hypoxia and hypercapnia J96.21; J96.22 Bradycardia R00.1 CHF (congestive heart failure) I50.9 Pneumonia J18.9 Coronavirus infection B34.2 COPD (chronic obstructive pulmonary disease) J44.1 COPD type: COPD with acute exacerbation Diabetes mellitus, type II E11.9 CAD (coronary artery disease) I25.10 Hypertension I10 Hypertension type: primary hypertension Hyperthyroidism E05.90 Nicotine addiction F17.218 Nicotine product type: cigarettes Substance use status: other nicotine-induced disorder BMI 30.0-30.9,adult Z68.30
[2021-12-22 06:15] LABS: Eosinophils % 0.1 %; Hematocrit 40.8 % (42.0-52.0); Hemoglobin 12.7 g/dL (11.7-16.6); Lymphocytes # 0.3 10^3/uL (0.8-4.8); Lymphocytes % 3.8 %; Mean Corpuscular HGB Conc 31.1 g/dL (30.0-36.0); Mean Corpuscular Hemoglobin 28.7 pg (28.0-34.0); Mean Corpuscular Volume 92.3 fl (80-94); Mean Platelet Volume 9.7 fL (7.4-10.4); Monocytes # 0.7 10^3/uL (0.2-0.9); Monocytes % 7.9 %; Neutrophils # 7.88 10^3/uL (1.8-7.7); Neutrophils % 87.9 %; Nucleated Red Blood Cells % 0 %; Platelet Count 188 10^3/cmm (130-400); Red Blood Count 4.42 10^6/uL (4.1-5.3)
[2021-12-22 06:50] LABS: Anion Gap 13.2 (5-19); Blood Urea Nitrogen 36 mg/dL (8-23); Calcium 8.8 mg/dL (8.5-10.5); Carbon Dioxide 31 mmol/L (22-29); Chloride 99 mmol/L (98-107); Glomerular Filtration Rate 113.5 mL/min (90-130); Glucose 153 mg/dL (65-115); Osmolality Calculated 299 mOsm/kg (285-295); Potassium 4.2 mmol/L (3.5-5.1); Sodium 139 mmol/L (136-145)
[2021-12-22] MEDS: methIMAzole 5 MG Tablet PO (06:51)
[2021-12-22] MEDS: aspirin 81 mg Chew Tablet PO (06:51)
[2021-12-22 07:24] LABS: Glucose Point of Care 137 mg/dL (70-110)
[2021-12-22] MEDS: budesonide 0.5 mg/2 mL Neb INHALATION ×2 (08:00→22:33)
[2021-12-22] MEDS: losartan 50 mg Tablet 75 MG PO (08:15)
[2021-12-22] MEDS: predniSONE 20 mg Tablet 60 MG PO (08:15)
[2021-12-22] MEDS: pantoprazole DR 40 mg Tablet PO (08:16)
[2021-12-22] MEDS: amiodarone 200 mg Tablet PO (08:16)
[2021-12-22] MEDS: metoprolol tartrate 25 mg Tablet PO ×2 (08:16→20:24)
[2021-12-22] MEDS: amlodipine 5 mg Tablet PO (08:16)
[2021-12-22] MEDS: FUROsemide 40 mg Tablet PO (08:16)
[2021-12-22] MEDS: docusate sodium 10 mg/mL (5ml) Liq 100 MG PO (08:18)
--- NOTE | 2021-12-22 09:26 | PM.PN ---
Subjective Subjective: No new complaints. Patient remains in sinus rhythm on telemetry. Medications: Reviewed: Yes Medication Review Details: Current Medications Acetaminophen (Acetaminophen 325 Mg Tablet) 650 mg PO Q6H PRN PRN Reason: MILD PAIN Albuterol/Ipratropium (Ipratropium-Albuterol 3 Ml Neb) 3 ml INHALATION Q6H.RESPIRATORY ELLIE Last Admin: 12/22/21 14:05 Dose: 3 ml Documented by: Albuterol/Ipratropium (Ipratropium-Albuterol 3 Ml Neb) 3 ml INHALATION Q6H.RESPIRATORY PRN PRN Reason: SHORTNESS OF BREATH Amiodarone HCl (Amiodarone 200 Mg Tablet) 200 mg PO DAILY ELLIE Last Admin: 12/22/21 08:16 Dose: 200 mg Documented by: Amlodipine Besylate (Amlodipine 5 Mg Tablet) 5 mg PO DAILY ELLIE Last Admin: 12/22/21 08:16 Dose: 5 mg Documented by: Aspirin (Aspirin 81 Mg Chew Tablet) 81 mg PO QAM ELLIE Last Admin: 12/22/21 06:51 Dose: 81 mg Documented by: Atorvastatin Calcium (Atorvastatin 40 Mg Tablet) 20 mg PO BEDTIME ELLIE Last Admin: 12/21/21 20:17 Dose: 20 mg Documented by: Budesonide (Budesonide 0.5 Mg/2 Ml Neb) 0.5 mg INHALATION BID.RESPIRATORY ELLIE Last Admin: 12/22/21 08:00 Dose: 0.5 mg Documented by: Dextrose (Dextrose 50% Syringe 50 Ml) 25 ml IVP ONCE PRN; Protocol PRN Reason: hypoglycemia protocol Dextrose (Dextrose 50% Syringe 50 Ml) 50 ml IVP PRN PRN; Protocol PRN Reason: hypoglycemia protocol Docusate Sodium (Docusate Sodium 100 Mg Capsule) 100 mg PO BID [facility] Furosemide (Furosemide 40 Mg Tablet) 40 mg PO DAILY@0800 ELLIE Last Admin: 12/22/21 08:16 Dose: 40 mg Documented by: Glucagon (Glucagon 1 Mg/Ml Inj 1 Ml) 1 mg IM ONCE PRN; Protocol PRN Reason: Adult Acute Hypoglycemia Prot. Cefepime HCl 1,000 mg/ Sodium (Chloride) 50 mls @ 100 mls/hr IV Q12H ELLIE; Protocol Last Infusion: 12/22/21 15:07 Dose: Infused Documented by: Dextrose (D5w) 500 mls @ 100 mls/hr IV ONCE PRN; Protocol PRN Reason: Adult Acute Hypoglycemia Prot Sodium Chloride (Sodium Chloride 0.9%) 500 mls @ 0 mls/hr IV .Q0M [facility] Last Infusion: 12/21/21 07:36 Dose: Infused Documented by: Insulin Human Lispro (Insulin Lispro 100 Unit/1 Ml) 0 unit SUBCUT BEDTIME [facility]; Protocol Last Admin: 12/21/21 20:22 Dose: 2 unit Documented by: Insulin Human Lispro (Insulin Lispro 100 Unit/1 Ml) 0 unit SUBCUT TIDWM [facility]; Protocol Last Admin: 12/22/21 11:55 Dose: 4 unit Documented by: Losartan Potassium (Losartan 50 Mg Tablet) 75 mg PO DAILY [facility] Last Admin: 12/22/21 08:15 Dose: 75 mg Documented by: Methimazole (Methimazole 5 Mg Tablet) 5 mg PO QAM [facility] Last Admin: 12/22/21 06:51 Dose: 5 mg Documented by: Metoprolol Tartrate (Metoprolol Tartrate 25 Mg Tablet) 25 mg PO BID@0900,2100 [facility] Last Admin: 12/22/21 08:16 Dose: 25 mg Documented by: Ondansetron HCl (Ondansetron 2 Mg/Ml Sdv 2 Ml) 4 mg IVP Q6H PRN PRN Reason: NAUSEA AND VOMITING Last Admin: 12/21/21 12:16 Dose: 4 mg Documented by: Pantoprazole Sodium (Pantoprazole Dr 40 Mg Tablet) 40 mg PO DAILY [facility] Last Admin: 12/22/21 08:16 Dose: 40 mg Documented by: Prednisone (Prednisone 20 Mg Tablet) 60 mg PO DAILY [facility] Last Admin: 12/22/21 08:15 Dose: 60 mg Documented by: Vitals/I&O/Wt Last Vital Signs Temp 98.4 F 12/22/21 08:00 Pulse 70 12/22/21 08:00 Resp 15 12/22/21 08:00 BP 147/75 12/22/21 08:15 Pulse Ox 94 12/22/21 08:00 12/21/21 12/22/21 12/22/21 22:59 06:59 14:59 Intake Total 770 / 2359.944 290 / 2649.944 360 / 360 Output Total 950 / 950 1100 / 2050 1100 / 1100 Balance -180 / 1409.944 -810 / 599.944 -740 / -740 Weight last 48 hrs Weight 203 lb 14.4 oz Weight 200 lb 9.6 oz Physical Exam Narrative: GENERAL: Obese man sitting in chair in no acute distress HEENT: No pallor or icterus. NECK: No JVD, carotid bruit. CARDIOVASCULAR SYSTEM: S1-S2 regular. No murmur or gallops. RESPIRATORY SYSTEM: Decreased air entry bilaterally, prolonged expiration. No wheezes rhonchi or rubs heard. ABDOMEN: Soft, nontender and nondistended. Normal bowel sounds present. EXTREMITIES: No edema. No signs of chronic venous insufficiency. STITCHER TAPE CONTROLLED MACHINE: Patient is alert oriented ?3. No focal neurological deficits. SKIN: Normal turgor and temperature. Urinary Catheter Management: Matias: Cath Placed During This Visit: yes, but has since been removed by the nurse Urethral Indwelling: Yes Reason for Continuing Indwelling Catheter: Accurate Measurement of Urinary Output in Critically Ill Patients Urinary Catheter Date of Insertion: 12/16/21 Urinary Catheter Time of Insertion: 15:00 Date Urinary Catheter Removed: 12/22/21 Time Urinary Catheter Discontinued: 06:15 Data : 12/22/21 06:08 12/22/21 06:08 Micro: Microbiology 12/21/21 08:04 MRSA Culture - Final Nose 12/16/21 15:40 Blood Culture - Final Blood NO GROWTH AFTER 5 DAYS 12/16/21 15:35 Blood Culture - Final Blood Staphylococcus epidermidis Viridans streptococcus group A&P Assessment and plan (1) Atrial fibrillation: Paroxysmal A. flutter on telemetry -Converted to sinus rhythm with amiodarone gtt. and IV push of metoprolol 5 mg. -Remains in sinus rhythm. -On p.o. amiodarone and low-dose p.o. metoprolol -Not on anticoagulation given history of GI bleed Status: Acute (2) Bradycardia: Sinus bradycardia on admission however patient was hypoglycemic as well as confused on admission -No documented overdose of medications -We will monitor closely on telemetry. May consider monitor if patient exhibits significant bradycardia Status: Acute (3) CHF (congestive heart failure): Heart failure with preserved ejection fraction -appears fairly compensated presently -Agree with resuming PO Lasix today -Length of stay -4.2 L Status: Chronic (4) Acute on chronic respiratory failure with hypoxia and hypercapnia: S/p extubation Status: Acute (5) CAD (coronary artery disease): Status: Chronic (6) Hypertension: on amlodipine, losartan to 75 mg daily Status: Chronic Qualifiers: Hypertension type: primary hypertension Qualified Code(s): I10 - Essential (primary) hypertension (7) Diabetes mellitus, type II: Status: Chronic Plan Hypothyroidism Pneumonia Thank you for allowing me to participate in patient's care. Please feel free to call with questions or concerns. 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
[2021-12-22 11:15] LABS: Glucose Point of Care 208 mg/dL (70-110)
[2021-12-22] MEDS: insulin lispro 100 unit/1 mL SUBCUT ×3 (11:55→20:12)
--- NOTE | 2021-12-22 15:06 | PC.NURSE ---
CVL dc'd, tolerated well. PIV placed to JOSIANE. Dated and initialed. Will monitor.
[2021-12-22 17:04] LABS: Glucose Point of Care 209 mg/dL (70-110)
--- NOTE | 2021-12-22 17:37 | PC.NURSE ---
Shift Note Frequent safety and comfort rounds continue. Orders and/or nursing care completed as indicated. Patient monitored for response to intervention and treatment(s). Education provided includes treatment plan, medications, oxygen and ambulation safety. Pt verbalizes understanding. Requires frequent assistance to stand and to get back to bed after urination into urinal. Pt exhibits moderate anxiety r/t ambulation and standing. PT worked with pt. tolerated well. Pt able to make all needs known and uses call light effectively. Awaiting room on CSU. Will continue to monitor.
[2021-12-22 19:43] LABS: Glucose Point of Care 256 mg/dL (70-110)
[2021-12-22] MEDS: atorvastatin 40 mg Tablet 20 MG PO (20:10)
[2021-12-22] MEDS: docusate sodium 100 mg Capsule PO (20:10)
[2021-12-23] VITALS (16 sets, daily range): BP systolic 129–143; BP diastolic 74–86; PULSE 53–73; RESP 16–23; TEMP 35.9–36.6; O2SAT 88–97
[2021-12-23] MEDS: ipratropium-albuterol 3 mL Neb INHALATION ×4 (02:19→20:51)
[2021-12-23 03:29] LABS: Anion Gap 10.1 (5-19); Blood Urea Nitrogen 33 mg/dL (8-23); Calcium 8.9 mg/dL (8.5-10.5); Carbon Dioxide 34 mmol/L (22-29); Chloride 99 mmol/L (98-107); Glomerular Filtration Rate 113.5 mL/min (90-130); Glucose 204 mg/dL (65-115); Osmolality Calculated 301 mOsm/kg (285-295); Potassium 4.1 mmol/L (3.5-5.1); Sodium 139 mmol/L (136-145)
[2021-12-23] MEDS: cefepime 1,000 MG in sodium chloride 0.9% (plus) 50 ML 100 MG IV ×2 (04:08→14:12)
[2021-12-23] MEDS: aspirin 81 mg Chew Tablet PO (04:09)
[2021-12-23] MEDS: methIMAzole 5 MG Tablet PO (04:09)
[2021-12-23 06:24] LABS: Glucose Point of Care 165 mg/dL (70-110)
--- NOTE | 2021-12-23 08:01 | PM.PN ---
Subjective Subjective: Worked well with physical therapy yesterday. Still weak, but able to stand. Some shortness of breath but nearing baseline. Medications: Reviewed: Yes Vitals/I&O/Wt Last Vital Signs Temp 98 F 12/22/21 23:25 Pulse 63 12/23/21 04:44 Resp 18 12/23/21 03:41 BP 135/76 12/23/21 03:41 Pulse Ox 94 12/23/21 03:41 12/22/21 12/23/21 12/23/21 22:59 06:59 14:59 Intake Total 1530 / 2370 410 / 2780 Output Total 1150 / 3500 400 / 3900 Balance 380 / -1130 10 / -1120 Weight last 48 hrs Weight 92.306 kg Weight 92.487 kg Physical Exam Narrative: General exam awake, alert and oriented. Telemetry demonstrates sinus rhythm, no severe bradycardia Neck is supple no lymphadenopathy or thyromegaly Cardiovascular regular rate and rhythm, heart sounds distant Lungs diminished breath sounds but no wheezes Abdomen is soft nontender positive bowel sounds Extremities no cyanosis clubbing. No edema Urinary Catheter Management: Matias: Cath Placed During This Visit: yes, but has since been removed by the nurse Urethral Indwelling: Yes Reason for Continuing Indwelling Catheter: Accurate Measurement of Urinary Output in Critically Ill Patients Urinary Catheter Date of Insertion: 12/16/21 Urinary Catheter Time of Insertion: 15:00 Date Urinary Catheter Removed: 12/22/21 Time Urinary Catheter Discontinued: 06:15 Data : 12/22/21 06:08 12/23/21 02:28 A&P Assessment and plan (1) Acute metabolic encephalopathy: Likely secondary to hypercapnic hypoxic respiratory failure with bradycardia and hypoglycemia. CT head no acute findings This appears to have resolved. Status: Acute (2) Acute on chronic respiratory failure with hypoxia and hypercapnia: Requiring endotracheal intubation. Extubated on December 20 Has known chronic obstructive and restrictive lung disease. Presentation consistent with acute COPD exacerbation He has been transitioned to p.o. prednisone. Reduce this to 40 mg today. With concern of bibasilar pneumonia cefepime and vancomycin were also initiated. Cultures negative to date. MRSA PCR negative. Vancomycin was discontinued on the Pulmonary toilet to continue Secondary to fluid overload he was diuresed. He appears well compensated today. He did continue to diurese from yesterday. Blood cultures demonstrated likely contaminant with staph epidermidis and viridans strep growing in the same bottle Status: Acute (3) Bradycardia: Chronically on amiodarone and betablockade due to atrial fibrillation history, no recent medication changes apparent Amiodarone drip restarted secondary to atrial fibrillation with rapid ventricular rate. He has received a few doses of IV metoprolol. Dopamine has been able to be weaned off On presentation heart rate was in the 30s No recurrence of bradycardia with reinitiation of amiodarone and metoprolol, lower dose, for atrial fibrillation with rapid ventricular rate. Status: Acute (4) CHF (congestive heart failure): Appears to be compensated currently Secondary to borderline hypotension Entresto held on admission. Lasix reinitiated yesterday. Diuresis occurred, but minimal, around 400 cc. Status: Chronic (5) Pneumonia: Continue cefepime Covid PCR negative Vancomycin discontinued as MRSA PCR negative Status: Acute (6) Coronavirus infection: [id number] infection identified 12/05/2021 via PCR testing. He had SARS-CoV-2 infection in 09/2021; did not require intubation then. Status: Acute (7) COPD (chronic obstructive pulmonary disease): See findings under respiratory failure Status: Chronic Qualifiers: COPD type: COPD with acute exacerbation Qualified Code(s): J44.1 - Chronic obstructive pulmonary disease with (acute) exacerbation (8) Diabetes mellitus, type II: Chronically on long acting and short acting insulin plus sitagliptin. Initial blood sugars in the field were low necessitating administration of D50 and D10 in route by EMS. On arrival here blood sugar was greater than 200 but he subsequently recurrent acute hypoglycemia with sugars at 60. D10 was given initially. Glucose drip has since been discontinued. Now initiating a consistent carb diet, mild sliding scale insulin Status: Chronic (9) CAD (coronary artery disease): History of stent x 2 previously, last cath in 07/2021 with patent stents, chronically on aspirin and statin Troponin above normal range but with negative delta Continue aspirin and statin Status: Chronic (10) Hypertension: On entresto, betablocker and diuretic chronically Initial blood pressures low normal range; after intubation, blood pressures as high as 190s systolic. Improved with sedation (which exacerbated bradycardia). With adjustments to sedation given, blood pressure has improved. Now on losartan 75 mg daily. Norvasc added by cardiology Overall control improved Status: Chronic Qualifiers: Hypertension type: primary hypertension Qualified Code(s): I10 - Essential (primary) hypertension (11) Hyperthyroidism: Continue methimazole Status: Chronic (12) Nicotine addiction: Status: Acute Qualifiers: Nicotine product type: cigarettes Substance use status: other nicotine-induced disorder Qualified Code(s): F17.218 - Nicotine dependence, cigarettes, with other nicotine-induced disorders (13) BMI 30.0-30.9,adult: Status: Chronic Plan Lovenox for DVT prophylaxis Full code Continue mobilizing with physical therapy Tentative plan is discharge tomorrow with home health and home physical therapy. Attestations Medical Necessity Statement*: Needs continued hospitalization for close monitoring following respiratory failure. Still needing frequent nebulized treatments. Also needs IV antibiotics for pneumonia. Possible discharge tomorrow. Coding Level of Care Code Acute Floral Department Specialist for [facility] Fwd Diagnoses Acute metabolic encephalopathy G93.41 Acute on chronic respiratory failure with hypoxia and hypercapnia J96.21; J96.22 Bradycardia R00.1 CHF (congestive heart failure) I50.9 Pneumonia J18.9 Coronavirus infection B34.2 COPD (chronic obstructive pulmonary disease) J44.1 COPD type: COPD with acute exacerbation Diabetes mellitus, type II E11.9 CAD (coronary artery disease) I25.10 Hypertension I10 Hypertension type: primary hypertension Hyperthyroidism E05.90 Nicotine addiction F17.218 Nicotine product type: cigarettes Substance use status: other nicotine-induced disorder BMI 30.0-30.9,adult Z68.30
[2021-12-23] MEDS: FUROsemide 40 mg Tablet PO (08:26)
[2021-12-23] MEDS: insulin lispro 100 unit/1 mL SUBCUT ×4 (08:26→20:38)
[2021-12-23] MEDS: amiodarone 200 mg Tablet PO (08:27)
[2021-12-23] MEDS: amlodipine 5 mg Tablet PO (08:27)
[2021-12-23] MEDS: docusate sodium 100 mg Capsule PO ×2 (08:27→17:10)
[2021-12-23] MEDS: metoprolol tartrate 25 mg Tablet PO ×2 (08:28→20:38)
[2021-12-23] MEDS: losartan 50 mg Tablet 75 MG PO (08:28)
[2021-12-23] MEDS: pantoprazole DR 40 mg Tablet PO (08:28)
[2021-12-23] MEDS: predniSONE 20 mg Tablet 40 MG PO (08:29)
[2021-12-23] MEDS: budesonide 0.5 mg/2 mL Neb INHALATION ×2 (08:41→20:51)
--- NOTE | 2021-12-23 09:24 | PC.SOCIAL ---
IMM UPDATED IMM dated and initialed and copy given to patient
[2021-12-23 11:41] LABS: Glucose Point of Care 230 mg/dL (70-110)
[2021-12-23 16:41] LABS: Glucose Point of Care 247 mg/dL (70-110)
--- NOTE | 2021-12-23 17:26 | PM.PN ---
Subjective Subjective: No new complaints. Patient remains in sinus rhythm on telemetry. He is worried about being home by himself. Medications: Reviewed: Yes Medication Review Details: Current Medications Acetaminophen (Acetaminophen 325 Mg Tablet) 650 mg PO Q6H PRN PRN Reason: MILD PAIN Albuterol/Ipratropium (Ipratropium-Albuterol 3 Ml Neb) 3 ml INHALATION Q6H.RESPIRATORY ELLIE Last Admin: 12/22/21 14:05 Dose: 3 ml Documented by: Albuterol/Ipratropium (Ipratropium-Albuterol 3 Ml Neb) 3 ml INHALATION Q6H.RESPIRATORY PRN PRN Reason: SHORTNESS OF BREATH Amiodarone HCl (Amiodarone 200 Mg Tablet) 200 mg PO DAILY ELLIE Last Admin: 12/22/21 08:16 Dose: 200 mg Documented by: Amlodipine Besylate (Amlodipine 5 Mg Tablet) 5 mg PO DAILY ELLIE Last Admin: 12/22/21 08:16 Dose: 5 mg Documented by: Aspirin (Aspirin 81 Mg Chew Tablet) 81 mg PO QAM ELLIE Last Admin: 12/22/21 06:51 Dose: 81 mg Documented by: Atorvastatin Calcium (Atorvastatin 40 Mg Tablet) 20 mg PO BEDTIME ELLIE Last Admin: 12/21/21 20:17 Dose: 20 mg Documented by: Budesonide (Budesonide 0.5 Mg/2 Ml Neb) 0.5 mg INHALATION BID.RESPIRATORY ELLIE Last Admin: 12/22/21 08:00 Dose: 0.5 mg Documented by: Dextrose (Dextrose 50% Syringe 50 Ml) 25 ml IVP ONCE PRN; Protocol PRN Reason: hypoglycemia protocol Dextrose (Dextrose 50% Syringe 50 Ml) 50 ml IVP PRN PRN; Protocol PRN Reason: hypoglycemia protocol Docusate Sodium (Docusate Sodium 100 Mg Capsule) 100 mg PO BID ELLIE Furosemide (Furosemide 40 Mg Tablet) 40 mg PO DAILY@0800 ELLIE Last Admin: 12/22/21 08:16 Dose: 40 mg Documented by: Glucagon (Glucagon 1 Mg/Ml Inj 1 Ml) 1 mg IM ONCE PRN; Protocol PRN Reason: Adult Acute Hypoglycemia Prot. Cefepime HCl 1,000 mg/ Sodium (Chloride) 50 mls @ 100 mls/hr IV Q12H ELLIE; Protocol Last Infusion: 12/22/21 15:07 Dose: Infused Documented by: Dextrose (D5w) 500 mls @ 100 mls/hr IV ONCE PRN; Protocol PRN Reason: Adult Acute Hypoglycemia Prot Sodium Chloride (Sodium Chloride 0.9%) 500 mls @ 0 mls/hr IV .Q0M [facility] Last Infusion: 12/21/21 07:36 Dose: Infused Documented by: Insulin Human Lispro (Insulin Lispro 100 Unit/1 Ml) 0 unit SUBCUT BEDTIME [facility]; Protocol Last Admin: 12/21/21 20:22 Dose: 2 unit Documented by: Insulin Human Lispro (Insulin Lispro 100 Unit/1 Ml) 0 unit SUBCUT TIDWM [facility]; Protocol Last Admin: 12/22/21 11:55 Dose: 4 unit Documented by: Losartan Potassium (Losartan 50 Mg Tablet) 75 mg PO DAILY [facility] Last Admin: 12/22/21 08:15 Dose: 75 mg Documented by: Methimazole (Methimazole 5 Mg Tablet) 5 mg PO QAM [facility] Last Admin: 12/22/21 06:51 Dose: 5 mg Documented by: Metoprolol Tartrate (Metoprolol Tartrate 25 Mg Tablet) 25 mg PO BID@0900,2100 [facility] Last Admin: 12/22/21 08:16 Dose: 25 mg Documented by: Ondansetron HCl (Ondansetron 2 Mg/Ml Sdv 2 Ml) 4 mg IVP Q6H PRN PRN Reason: NAUSEA AND VOMITING Last Admin: 12/21/21 12:16 Dose: 4 mg Documented by: Pantoprazole Sodium (Pantoprazole Dr 40 Mg Tablet) 40 mg PO DAILY [facility] Last Admin: 12/22/21 08:16 Dose: 40 mg Documented by: Prednisone (Prednisone 20 Mg Tablet) 60 mg PO DAILY [facility] Last Admin: 12/22/21 08:15 Dose: 60 mg Documented by: Vitals/I&O/Wt Last Vital Signs Temp 96.7 F L 12/23/21 16:00 Pulse 73 12/23/21 16:00 Resp 18 12/23/21 16:00 BP 143/86 12/23/21 16:00 Pulse Ox 94 12/23/21 16:00 12/23/21 12/23/21 12/23/21 06:59 14:59 22:59 Intake Total 410 / 2780 1080 / 1080 240 / 1320 Output Total 400 / 3900 1250 / 1250 500 / 1750 Balance 10 / -1120 -170 / -170 -260 / -430 Weight last 48 hrs Weight 203 lb 8 oz Weight 203 lb 14.4 oz Physical Exam Narrative: GENERAL: Obese man sitting in chair in no acute distress HEENT: No pallor or icterus. NECK: No JVD, carotid bruit. CARDIOVASCULAR SYSTEM: S1-S2 regular. No murmur or gallops. RESPIRATORY SYSTEM: Decreased air entry bilaterally, prolonged expiration. No wheezes or rhonchi heard. ABDOMEN: Soft, nontender and nondistended. Normal bowel sounds present. EXTREMITIES: No edema. No signs of chronic venous insufficiency. 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 No focal neurological deficits. SKIN: Normal turgor and temperature. Urinary Catheter Management: Matias: Cath Placed During This Visit: yes, but has since been removed by the nurse Urethral Indwelling: Yes Reason for Continuing Indwelling Catheter: Accurate Measurement of Urinary Output in Critically Ill Patients Urinary Catheter Date of Insertion: 12/16/21 Urinary Catheter Time of Insertion: 15:00 Date Urinary Catheter Removed: 12/22/21 Time Urinary Catheter Discontinued: 06:15 Data : 12/24/21 02:32 12/24/21 02:32 A&P Assessment and plan (1) Atrial fibrillation: Paroxysmal A. flutter on telemetry -Converted to sinus rhythm with amiodarone gtt. and IV push of metoprolol 5 mg. -Remains in sinus rhythm. -On p.o. amiodarone and low-dose p.o. metoprolol -Not on anticoagulation given history of GI bleed Status: Acute (2) Bradycardia: Sinus bradycardia on admission however patient was hypoglycemic as well as confused on admission -No documented overdose of medications -We will monitor closely on telemetry. May consider campus monitor if patient exhibits significant bradycardia Status: Acute (3) CHF (congestive heart failure): Heart failure with preserved ejection fraction -appears fairly compensated presently -continue PO Lasix Status: Chronic (4) Acute on chronic respiratory failure with hypoxia and hypercapnia: S/p extubation Status: Acute (5) CAD (coronary artery disease): Status: Chronic (6) Hypertension: on amlodipine, losartan and lasix Status: Chronic Qualifiers: Hypertension type: primary hypertension Qualified Code(s): I10 - Essential (primary) hypertension (7) Diabetes mellitus, type II: Status: Chronic Plan Hypothyroidism Pneumonia Thank you for allowing me to participate in patient's care. Please feel free to call with questions or concerns. Attestations Medical Necessity Statement*: As per primary team Coding Level of Care Code Acute [facility] Diagnoses Atrial fibrillation I48.91 Bradycardia R00.1 CHF (congestive heart failure) I50.9 Acute on chronic respiratory failure with hypoxia and hypercapnia J96.21; J96.22 CAD (coronary artery disease) I25.10 Hypertension I10 Hypertension type: primary hypertension Diabetes mellitus, type II E11.9
[2021-12-23 20:29] LABS: Glucose Point of Care 241 mg/dL (70-110)
[2021-12-23] MEDS: atorvastatin 40 mg Tablet 20 MG PO (20:39)
[2021-12-24] VITALS (11 sets, daily range): BP systolic 138–163; BP diastolic 76–87; PULSE 62–90; RESP 15–20; TEMP 36.4; O2SAT 92–97
[2021-12-24] MEDS: ipratropium-albuterol 3 mL Neb INHALATION ×2 (02:07→08:29)
[2021-12-24] MEDS: cefepime 1,000 MG in sodium chloride 0.9% (plus) 50 ML 100 MG IV (02:40)
[2021-12-24 02:53] LABS: Basophils % 0.2 %; Eosinophils # 0.1 10^3/uL (0.0-0.8); Hematocrit 45.3 % (42.0-52.0); Hemoglobin 13.2 g/dL (11.7-16.6); Lymphocytes # 0.5 10^3/uL (0.8-4.8); Lymphocytes % 5.7 %; Mean Corpuscular HGB Conc 29.1 g/dL (30.0-36.0); Mean Corpuscular Hemoglobin 28.7 pg (28.0-34.0); Mean Corpuscular Volume 98.5 fl (80-94); Mean Platelet Volume 11.4 fL (7.4-10.4); Monocytes # 0.9 10^3/uL (0.2-0.9); Neutrophils # 7.63 10^3/uL (1.8-7.7); Neutrophils % 82.3 %; Nucleated Red Blood Cells % 0 %; Platelet Count 212 10^3/cmm (130-400); Red Cell Distribution Width 17.3 % (12.1-15.1); White Blood Count 9.3 10^3/uL (4.0-10.0)
[2021-12-24 03:49] LABS: Blood Urea Nitrogen 30 mg/dL (8-23); Calcium 8.6 mg/dL (8.5-10.5); Carbon Dioxide 26 mmol/L (22-29); Chloride 94 mmol/L (98-107); Glomerular Filtration Rate 135.6 mL/min (90-130); Glucose 182 mg/dL (65-115); Osmolality Calculated 289 mOsm/kg (285-295); Sodium 134 mmol/L (136-145)
[2021-12-24 04:06] LABS: Anion Gap 18.6 (5-19); Potassium 4.6 mmol/L (3.5-5.1)
[2021-12-24] MEDS: aspirin 81 mg Chew Tablet PO (05:06)
[2021-12-24] MEDS: methIMAzole 5 MG Tablet PO (05:06)
[2021-12-24 06:33] LABS: Glucose Point of Care 202 mg/dL (70-110)
--- NOTE | 2021-12-24 07:47 | P.DS_ITS ---
Discharge Providers Date of Admission: 12/16/21 15:40 Date of Discharge: December 24, 2021 Attending Provider at Admission: Dorys Rogers MD Attending Provider at Discharge: Mikie Berry MD Primary Care Provider: Nasreen Gomez Diagnoses at Discharge Discharge Diagnosis (1) Atrial fibrillation: Status: Acute Permanent problem details: paroxysmal long-standing; not on anticoagulation due to history GI bleed 2019 while on eliquis (2) Bradycardia: Status: Acute (3) CHF (congestive heart failure): Status: Chronic Permanent problem details: 12/05/2021 EF 65% with grade 1 diastolic dysfunction (4) Acute on chronic respiratory failure with hypoxia and hypercapnia: Status: Acute (5) CAD (coronary artery disease): Status: Chronic (6) Hypertension: Status: Chronic Qualifiers: Hypertension type: primary hypertension Qualified Code(s): I10 - Essential (primary) hypertension (7) Diabetes mellitus, type II: Status: Chronic Reason for Visit Reason for Visit: [facility] Hospital Course Hospital Course Nagi is a 66-year-old white male who did to the hospital on December 16 with decreased responsiveness. He was found in the parking lot at [facility]. He was hypoglycemic, had acute hypoxic respiratory failure, bradycardic in the 30s, and there was concern for pneumonia. He was intubated secondary to his respiratory failure. CT head was performed secondary to decreased responsiveness which showed no changes. He was given IV steroids for his acute on chronic hypercarbic and hypoxic respiratory failure. IV antibiotics of cefepime and vancomycin were initiated. He was placed on dopamine for his bradycardia, and his amiodarone and beta-sweetie were held. He was diuresed because of concern for acute on chronic diastolic heart failure. D10W was initiated for his h ypoglycemia. With these treatments he had steady improvement. He diuresed well. Bradycardia resolved and dopamine was weaned. Covid PCR was completed and negative, and MRSA PCR negative. Vancomycin was eventually discontinued. Hypoglycemia resolved, and glucose drip was able to be discontinued. He was able to be extubated on December 20. He developed atrial fibrillation with rapid ventricular rate following extubation that required an amiodarone drip, reinitiation of amiodarone and lower dose beta-sweetie. Cardiology was consulted for this and other medication was adjusted for his hypertension. He spontaneously converted to sinus rhythm on the . During the rest of his hospital stay he was stable, working with physical therapy. He was able to go back down to his previous oxygen requirement of 4 L. I discussed with him possible nursing facility placement, for close monitoring secondary to his multiple medical problems and overall weakness and he refused. He reported he would go home with home health and home physical therapy. He is to follow-up fluid restriction, take all medicine as prescribed, resume his normal oxygen at 4 L. I asked that he follow-up closely with cardiology as well as his primary care provider. He refuses any anticoagulation for his atrial fibrillation, as he had a significant bleeding episode in the past. I discontinued his sliding scale insulin, and reduced his Lantus secondary to his hypoglycemia on presentation. Blood sugars were acceptable here, despite being on steroid. He is to take his blood sugars at least twice daily and as needed at home and take those results to his primary care provider at next follow-up. He was agreeable to this plan after it was explained in detail at discharge. I encouraged him to follow the 1500 cc fluid restriction that he was placed on. Multiple other medication adjustments were made. Of biggest note he was taken off Entresto, placed on ARB and amlodipine, and reduced dose of metoprolol was initiated in the hospital. Physical Exam Narrative: General exam no distress Neck is supple Cardiovascular regular rate and rhythm, no murmur Lungs diminished breath sounds bilaterally but no wheezes or crackles Abdomen is soft nontender with positive bowel sounds Extremities no cyanosis clubbing or edema Urinary Catheter Management: Matias: Cath Placed During This Visit: yes, but has since been removed by the nurse Urethral Indwelling: Yes Reason for Continuing Indwelling Catheter: Accurate Measurement of Urinary Output in Critically Ill Patients Urinary Catheter Date of Insertion: 12/16/21 Urinary Catheter Time of Insertion: 15:00 Date Urinary Catheter Removed: 12/22/21 Time Urinary Catheter Discontinued: 06:15 Discharge Data Studies Completed and Pending Completed Studies During Hospitalization Category Date Time Status CT head wo con* [id number] Stat Cat Scan 12/16/21 17:22 Completed CXRP [XR chest 1V portable [id number]] Routine Exams 12/20/21 07:17 Completed XR chest 1V portable [id number] AM LABS Exams 12/17/21 04:00 Completed XR chest 1V portable [id number] Routine Exams 12/18/21 07:00 Completed XR chest 1V portable [id number] Stat Exams 12/16/21 12:43 Completed XR chest 1V portable [id number] Stat Exams 12/16/21 15:17 Completed XR chest 1V portable [id number] Stat Exams 12/19/21 08:08 Completed Radiology Impressions Head CT 12/16/21 17:22 IMPRESSION: 1. No acute intracranial abnormality. 2. Mild sinusitis and bilateral mastoiditis. Chest X-Ray 12/20/21 07:17 IMPRESSION: 1. Stable cardiomegaly. 2. Small bilateral pleural effusions. Slight bibasilar atelectasis. Improved aeration LEFT lower lobe today. Laboratory Results WBC 9.3 10^3/uL (4.0-10.0) 12/24/21 02:32 RBC 4.60 10^6/uL (4.1-5.3) 12/24/21 02:32 Hgb 13.2 g/dL (11.7-16.6) 12/24/21 02:32 Hct 45.3 % (42.0-52.0) 12/24/21 02:32 MCV 98.5 fl (80-94) H 12/24/21 02:32 MCH 28.7 pg (28.0-34.0) 12/24/21 02:32 MCHC 29.1 g/dL (30.0-36.0) L 12/24/21 02:32 RDW 17.3 % (12.1-15.1) H 12/24/21 02:32 Plt Count 212 10^3/cmm (130-400) 12/24/21 02:32 MPV 11.4 fL (7.4-10.4) H 12/24/21 02:32 Neut % (Auto) 82.3 % 12/24/21 02:32 Lymph % (Auto) 5.7 % 12/24/21 02:32 [place] % (Auto) 10.0 % 12/24/21 02:32 Eos % (Auto) 1.0 % 12/24/21 02:32 Baso % (Auto) 0.2 % 12/24/21 02:32 Neut # (Auto) 7.63 10^3/uL (1.8-7.7) 12/24/21 02:32 Lymph # (Auto) 0.5 10^3/uL (0.8-4.8) L 12/24/21 02:32 [place] # (Auto) 0.9 10^3/uL (0.2-0.9) 12/24/21 02:32 Eos # (Auto) 0.1 10^3/uL (0.0-0.8) 12/24/21 02:32 Baso # (Auto) 0.0 10^3/uL (0.0-0.1) 12/24/21 02:32 Nucleated RBC % (auto) 0 % 12/24/21 02:32 Nucleated RBCs # 0.0 /100WBC 12/24/21 02:32 PT 12.70 SECONDS (12.1-14.9) 12/16/21 20:38 INR 0.93 (0.8-1.2) 12/16/21 20:38 APTT 28.6 SECONDS (23.9-36.7) 12/16/21 20:38 D-Dimer 0.60 ug/mIFEU (0-0.59) H 12/16/21 20:38 D-Dimer Cancelled 12/16/21 20:38 Specimen Type Arterial 12/21/21 04:00 Sample Site Radial, right 12/21/21 04:00 ABG pH 7.41 (7.35-7.45) 12/21/21 04:00 ABG pCO2 58.4 mmHg (35-45) H 12/21/21 04:00 ABG pO2 122.0 mmHg (80.0-100.0) H 12/21/21 04:00 ABG HCO3 37.2 mmol/L (22-26) H 12/21/21 04:00 ABG O2 Saturation 92.8 12/20/21 14:10 ABG Base Excess 10.4 mmol/L (-2.0-2.0) H 12/21/21 04:00 Gee Test Pos 12/21/21 04:00 A-a O2 Gradient 0.4 mmHg (5-10) L 12/20/21 14:10 Hematocrit 40.1 % (42-52) L 12/21/21 04:00 Hgb O2 Saturation 90.7 % (95-100) L 12/20/21 14:10 Carboxyhemoglobin 1.1 %THgb (0.4-20.1) 12/20/21 14:10 Methemoglobin 1.1 % (0.4-1.5) 12/20/21 14:10 Total Hemoglobin 12.6 g/dL (14-18) L 12/20/21 14:10 Sodium 146.0 mmol/L (131-143) H 12/20/21 14:10 Potassium 4.2 mmol/L (3.5-5.0) 12/20/21 14:10 Glucose 187.0 mg/dL (70-115) H 12/20/21 14:10 Ionized Calcium 1.3 mmol/L (1.1-1.4) 12/20/21 14:10 O2 Delivery Device Bipap 12/21/21 04:00 O2 Liters/Min 12.0 % 12/20/21 14:10 FiO2 50.0 % 12/21/21 04:00 Tidal Volume 0.45 12/18/21 04:50 PEEP 8.0 cmH20 12/20/21 14:10 It Network Administrator ID Sherry 12/21/21 04:00 Sodium 134 mmol/L (136-145) L 12/24/21 02:32 Potassium 4.6 mmol/L (3.5-5.1) 12/24/21 02:32 Chloride 94 mmol/L (98-107) L 12/24/21 02:32 Carbon Dioxide 26 mmol/L (22-29) 12/24/21 02:32 Anion Gap 18.6 (5-19) 12/24/21 02:32 BUN 30 mg/dL (8-23) H 12/24/21 02:32 Creatinine 0.6 mg/dL (0.7-1.2) L 12/24/21 02:32 GFR Calculation 135.6 mL/min (90-130) H 12/24/21 02:32 Glucose 182 mg/dL (65-115) H 12/24/21 02:32 POC Glucose 202 mg/dL (70-110) H 12/24/21 06:24 Calculated Osmolality 289 mOsm/kg (285-295) 12/24/21 02:32 Lactic Acid 0.5 mmol/L (0.5-2.2) 12/16/21 12:39 Calcium 8.6 mg/dL (8.5-10.5) 12/24/21 02:32 Magnesium 1.8 mg/dL (1.7-2.3) 12/16/21 20:19 Total Bilirubin 0.4 mg/dL (0.15-1.2) 12/21/21 03:17 AST 9 U/L (0-40) 12/21/21 03:17 ALT 13 U/L (0-41) 12/21/21 03:17 Alkaline Phosphatase 71 IU/L (40-130) 12/21/21 03:17 Creatine Kinase 43 U/L (39-308) 12/16/21 12:39 Troponin T Baseline 51 ng/L (0-15) H 12/16/21 12:39 Troponin T 120 Minute 46.75 ng/L (0-15) H 12/16/21 15:32 Delta Troponin T -4.25 ABS# (0-10) L 12/16/21 15:32 Troponin T Hi Sens 6Hr 36.39 ng/L (0-15) H 12/16/21 20:19 Troponin T Hi Sens 6Hr Delta -14.61 ng/L (0-12) L 12/16/21 20:19 NT-Pro-B Natriuret Pep 1275 pg/mL (0-125) H 12/16/21 12:39 Total Protein 5.9 g/dL (6.6-8.7) L 12/21/21 03:17 Albumin 3.7 g/dL (3.5-5.2) 12/21/21 03:17 Globulin 2.2 g/dL (1.3-4.6) 12/21/21 03:17 Lipase 25 U/L (13-60) 12/16/21 15:32 Procalcitonin 0.09 ng/mL (0-0.5) 12/16/21 12:39 TSH 0.69 uIU/mL (0.27-4.20) 12/16/21 12:39 Free T4 1.43 ng/dL (0.82-1.77) 12/16/21 12:39 Free T3 2.2 PG/ML (2.0-4.4) 12/16/21 12:39 Urine Color Yellow (Yellow) 12/16/21 18:20 Urine Appearance Clear (CLEAR) 12/16/21 18:20 Urine pH 5 (5-7) 12/16/21 18:20 Ur Specific [place] 1.020 (1.005-1.030) 12/16/21 18:20 Urine Protein 3+ (Negative) H 12/16/21 18:20 Urine Glucose (UA) 1+ (Normal) H 12/16/21 18:20 Urine Ketones Negative (Negative) 12/16/21 18:20 Urine Blood Neg (Negative) 12/16/21 18:20 Urine Nitrate Negative (Negative) 12/16/21 18:20 Urine Bilirubin Neg (Negative) 12/16/21 18:20 Urine Urobilinogen Norm mg/dL (Negative) 12/16/21 18:20 Ur Leukocyte Esterase Negative (Negative) 12/16/21 18:20 Urine RBC None /hpf (0-2) 12/16/21 18:20 Urine WBC None /hpf (0-5) 12/16/21 18:20 Ur Squamous Epith Cells 0-4 /hpf (0-5) H 12/16/21 18:20 Amorphous Sediment Not Reportable 12/16/21 18:20 Urine Bacteria Trace /hpf (NONE) 12/16/21 18:20 Hyaline Casts Rare /lpf 12/16/21 18:20 Fine Granular Casts 0-4 /lpf H 12/16/21 18:20 Vancomycin Trough 29.7 ug/mL (10-15) H* 12/19/21 14:30 Digoxin 0.3 ng/mL (0.6-1.2) L 12/16/21 12:39 Coronavirus 229E (PCR) Not detected (NOT DETECT) 12/16/21 20:20 SARS-CoV-2 (PCR) Not detected (NOT DETECT) 12/16/21 20:20 Vitals Last Vital Signs Temp 97.8 F 12/23/21 21:05 Pulse 70 12/24/21 06:55 Resp 20 H 12/24/21 06:55 BP 152/87 12/24/21 06:55 Pulse Ox 92 12/24/21 06:55 Discharge Plan Discharge Patient Disposition: Home Health Service Condition: Stable Prescriptions: New metoprolol tartrate 25 mg Tablet 25 mg PO BID@0900,2100 Qty: 60 0RF amlodipine 5 mg Tablet 5 mg PO DAILY Qty: 30 0RF prednisone 20 mg Tablet 40 mg PO DAILY Qty: 20 0RF Rx Instructions: 40 mg p.o. daily x4 days, then 30 mg a day for 4 days, 20 mg a day for 4 days 10 mg a day for 4 days and stop losartan 50 mg Tablet 75 mg PO DAILY Qty: 45 0RF furosemide 40 mg Tablet 60 mg PO DAILY@0800 Qty: 45 0RF cefdinir 300 mg capsule 300 mg PO BID Qty: 4 0RF Continued Yupelri 175 mcg/3 mL solution for nebulization 175 mcg inhalation DAILY Qty: 90 11RF Vitamin B12 Gummies 1 - 2 tab PO DAILY 0RF aspirin 81 mg tablet,delayed release (DR/EC) 81 mg PO QAM 0RF rosuvastatin 20 mg tablet 10 mg PO DAILY 0RF methimazole 5 mg tablet 5 mg PO QAM Qty: 0 0RF Pacerone 200 mg tablet 200 mg PO DAILY 0RF Januvia 50 mg tablet 50 mg PO QAM 0RF omeprazole 40 mg capsule,delayed release(DR/EC) 40 mg PO QAM 0RF potassium chloride 20 mEq tablet,ER particles/crystals 20 meq PO DAILY 0RF albuterol sulfate 90 mcg/actuation HFA aerosol inhaler 1 inh inhalation Q6H PRN (Reason: shortness of breath or wheezing) Qty: 8.5 0RF formoterol fumarate [Perforomist] 20 mcg/2 mL solution for nebulization 2 ml INHALATION BID Qty: 120 2RF Combivent Respimat 20-100 mcg/actuation mist 1 puff inhalation Q6H Qty: 4 0RF Changed Lantus Solostar U-100 Insulin 100 unit/mL (3 mL) insulin pen 15 unit SUBCUT BEDTIME Qty: 0 0RF Discontinued benzonatate 100 mg Capsule 100 mg PO TID PRN (Reason: Cough) Qty: 14 0RF Entresto 24-26 mg tablet 1 tab PO BID 0RF Hold Instructions: Resume on 11/12/21. Please speak with your heart doctor, and your primary care physician before resuming this medication. I was concerned about elevated potassium level. Your potassium level and kidney function will need to be rechecked before resuming this medication. furosemide 40 mg tablet 40 mg PO DAILY Qty: 0 0RF trazodone 50 mg tablet 100 mg PO BEDTIME 0RF insulin lispro [Humalog KwikPen Insulin] 100 unit/mL insulin pen See Rx Instructions .ROUTE .COMPLEX MDD see pharmacy comment 0RF Rx Instructions: per sliding scale PRN metoprolol tartrate 50 mg tablet 50 mg PO BID 90 Days Qty: 180 0RF Referrals: [facility] [Outside] Nasreen Gomez PA [Primary Care Provider] - 1-3 days (BMP on follow-up) Krystal Meneses MD [Physician] - 7-10 days Discharge Diet: Cardiac Discharge Activity: Increase activity as tolerated Patient Instructions: Opioid Safety Activity Restrictions/Additional Instructions: 1500 cc fluid restriction. Weigh yourself daily, call your primary care provider cardiology if you gain more than 3 pounds 2 days in a row Resume your home oxygen setting of 4 L Take all medicine as prescribed No smoking Keep track of your blood sugars and report this to your primary care provider, for adjustment of your diabetic medication. Discharge Attestations Time Spent in Discharge Care*: greater than 30 min Status at Discharge: Cognitive status at discharge: cognitively intact , Behavioral status at discharge: cooperative , Quality Metrics Clinical Quality Measures [ No reported AMI, CVA or VTE this stay] Coding Level of Care Code Acute [facility] note Diagnoses Atrial fibrillation I48.91 Bradycardia R00.1 CHF (congestive heart failure) I50.9 Acute on chronic respiratory failure with hypoxia and hypercapnia J96.21; J96.22 CAD (coronary artery disease) I25.10 Hypertension I10 Hypertension type: primary hypertension Diabetes mellitus, type II E11.9
[2021-12-24] MEDS: FUROsemide 40 mg Tablet 60 MG PO (08:12)
[2021-12-24] MEDS: pantoprazole DR 40 mg Tablet PO (08:14)
[2021-12-24] MEDS: predniSONE 20 mg Tablet 40 MG PO (08:14)
[2021-12-24] MEDS: losartan 50 mg Tablet 75 MG PO (08:14)
[2021-12-24] MEDS: amlodipine 5 mg Tablet PO (08:15)
[2021-12-24] MEDS: amiodarone 200 mg Tablet PO (08:16)
[2021-12-24] MEDS: metoprolol tartrate 25 mg Tablet PO (08:16)
[2021-12-24] MEDS: insulin lispro 100 unit/1 mL SUBCUT (08:17)
[2021-12-24] MEDS: budesonide 0.5 mg/2 mL Neb INHALATION (08:29)
[2021-12-24 11:01] LABS: Glucose Point of Care 165 mg/dL (70-110)
--- NOTE | 2021-12-24 12:29 | PC.NURSE ---
Discharge Note Patient discharged to home via private vehicle accompanied by family member. 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 Patient verbalized understanding of all teaching. Mobile pharmacy medications and/or prescriptions provided. Belongings/home medications returned.
== END 2021-12-24 11:50 | disposition home health service (06) | DRG 208 ==
LOC: ER 16:29 → ICU 17:33 → CSU 12-22 21:16
PROVIDERS: Internal Medicine; Admitting Provider Hospitalist; Emergency Provider Family Medicine; PCP Physician Assistant; Visit Provider Internal Medicine
DX: J96.22 Acute and chronic respiratory failure with hypercapnia (principal); J18.9 Pneumonia, unspecified organism; I50.33 Acute on chronic diastolic (congestive) heart failure; G93.41 Metabolic encephalopathy; J44.1 Chronic obstructive pulmonary disease with (acute) exacerbation; J44.0 Chronic obstructive pulmonary disease with (acute) lower respiratory infection; J96.21 Acute and chronic respiratory failure with hypoxia; E11.649 Type 2 diabetes mellitus with hypoglycemia without coma; I11.0 Hypertensive heart disease with heart failure; I48.0 Paroxysmal atrial fibrillation; I25.10 Atherosclerotic heart disease of native coronary artery without angina pectoris; Z95.5 Presence of coronary angioplasty implant and graft; Z86.16 Personal history of COVID-19; K21.9 Gastro-esophageal reflux disease without esophagitis; E78.5 Hyperlipidemia, unspecified; G47.33 Obstructive sleep apnea (adult) (pediatric); F17.210 Nicotine dependence, cigarettes, uncomplicated; R00.1 Bradycardia, unspecified; Z99.89 Dependence on other enabling machines and devices; Z79.51 Long term (current) use of inhaled steroids; Z79.84 Long term (current) use of oral hypoglycemic drugs; Z79.82 Long term (current) use of aspirin; E05.90 Thyrotoxicosis, unspecified without thyrotoxic crisis or storm
CPT/HCPCS: 36415; 36416; 36592; 36600; 51702; 70450; 71045; 80048; 80051; 80053; 80162; 80202; 81001; 82330; 82550; 82803; 82805; 82962; 83605; 83690; 83735; 83880; 84145; 84439; 84443; 84481; 84484; 85025; 85378; 85610; 85730; 87040; 87070; 87150; 87205; 87635; 87641; 93005; 94002; 94003; 94640; 94660; 94799; 96365; 96366; 96367; 96368; 96372; 97110; 97161; 97530; 99291; C9113; J0282; J0330; J0692; J1265; J1815; J1940; J2250; J2405; J2704; J2920; J2930; J3010; J3370; J3490; J7040; J7050; J7060; J7512; J7626; J7799

== ENCOUNTER 2021-12-28 12:12 | Inpatient (IN) | payer MEDICARE, MEDICAID, SELFPAY ==
[2021-12-28] VITALS (46 sets, daily range): BP systolic 94–152; BP diastolic 51–88; PULSE 62–94; RESP 16–28; TEMP 36.4–37.1; O2SAT 91–99; BMI 34.2
--- NOTE | 2021-12-28 12:15 | ED_ITS ---
HPI - SOB/Dyspnea General: Chief Complaint: Shortness of Breath/Dyspnea Stated Complaint: SOB, EDEMA Time Seen by Provider: 12/28/21 12:14 History of Present Illness: HPI Narrative: Mr. Cuellar is a 66-year-old gentleman with significant past medical history of hypertension, hyperlipidemia, obesity, diabetes, COPD with chronic respiratory hypoxic failure on 5 L at baseline, CHF and recent hospitalization with intubation for respiratory failure presents emergency department due to shortness of breath and low oxygen saturation. He reports overall feeling roughly the same since hospital discharge though perhaps mild increase in fluid retention. Today he was found to be more tachypneic and oxygen saturations in the 70s with exertion despite being at his baseline oxygen. Denies infectious symptoms. Intensity symptoms is moderate. Course has been worsening. Has been producing urine. Patient endorses medication compliance. No other specific dunne ges in health, exacerbating, relieving factors. Pertinent past history: COPD and diabetes Onset (ago): hour(s) Context: other Timing: progressively worsening Severity: moderate Exacerbating factors: exertion Relieving factors: oxygen and rest Known history of: COPD, congestive heart failure and diabetes Associated symptoms: Reports no associated symptoms Review of Systems General: Reports: 10 or more systems reviewed and unremarkable except in HPI and below PFSH ED PFS: Medical History (Updated 12/29/21 @ 11:55 by Tony Cruz MD) Atrial fibrillation paroxysmal long-standing; not on anticoagulation due to history GI bleed 2019 while on eliquis BMI 30.0-30.9,adult CAD (coronary artery disease) CHF (congestive heart failure) 12/05/2021 EF 65% with grade 1 diastolic dysfunction Chronic kidney disease, stage II (mild) Chronic respiratory failure with hypoxia COPD (chronic obstructive pulmonary disease) Gold Class D, centrolobular Cor pulmonale COVID-19 (~09/2021) Diabetes GERD (gastroesophageal reflux disease) History of Khan's palsy History of GI bleed (~2018) While on eliquis History of PFTs 03/2020 obstructive and restrictive components described History of sleep study (~2012) Hyperlipidemia Hypertension Hyperthyroidism Nicotine addiction Noncompliance On home oxygen therapy 5L DAY[place] (obstructive sleep apnea) Uses bilevel positive airway pressure (BPAP) ventilation at home Surgical History H/O hernia repair (~2016) ventral incisional with repair x 2, in 2016 with mesh and lysis of adhesions History of cardiac catheterization (~07/2021) patent stent per report History of colonoscopy History of coronary artery stent placement x 2 LAD (2005, 2010) History of endoscopy small bowel capsule History of esophagogastroduodenoscopy (EGD) Family History Mother Lung disease COPD Sister Cancer Social History (Updated 12/28/21 @ 15:53 by Tony Cruz MD) Smoking and tobacco status: current some day smoker cigarettes Years cigarettes smoked: 47 [ Other cigarette details: Hx of 2PPD x 47 Years] Second hand smoke exposure: Yes Alcohol intake: current Alcohol intake frequency: holidays/special occasions only Caregiver/support person: Yes Lives independently: Yes Housing: Snf Marital status: Single Current occupational status: disabled and 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 Current gender identity: Male Physical Exam Const: COMMON NORMALS: alert GENERAL APPEARANCE: cooperative, ill appearing and other (Somnolent) HENMT: COMMON NORMALS: normocephalic and atraumatic HEAD & SCALP: normocephalic and atraumatic Eye: COMMON NORMALS: conjunctivae normal CONJUNCTIVA: Yes conjunctivae normal SCLERA: sclerae normal Neck/C-Spine: COMMON NORMALS: supple GENERAL: Yes trachea midline Resp: EFFORT & INSPECTION: Yes tachypneic AUSCULTATION: crackles and diminished lung sounds Cardio: COMMON NORMALS: regular rate and regular rhythm RATE: regular rate RHYTHM: regular rhythm OTHER: Pitting edema bilaterally 4+ GI: COMMON NORMALS: Soft to palpation PALPATION: Yes Soft to palpation and No Tenderness to palpation present (GI) PERCUSSION: normal to percussion Extremity: GENERAL: Yes normal exam except as noted and Yes edema Neuro: COMMON NORMALS: moves all extremities SENSORIUM/ORIENTATION: Yes alert and No Orientation impaired Psych: COMMON NORMALS: mental status grossly normal and Normal thought process present THOUGHT PROCESS: Normal thought process present Procedures EJ/Peripheral Line Arm R: Size (gauge): 18 IV Secured and Dressing Applied: Yes Patient Tolerated Procedure: well Additional Comments: US guided Course ED course: - Patient was seen and evaluated by me at bedside - Patient placed on cardiac monitors, IV access obtained - Initial evaluation notable for exam as above, grossly volume overloaded, so mnolent though easily awoken - Initial ABG notable for pH 7.21 and PCO2 111. BiPAP ordered for - Labs notable for minimal leukocytosis, metabolic panel without acute electrolyte derangement requiring intervention. Delta troponin is negative. BNP is only mildly elevated though patient does not appear to have history of marked elevation in BNP. Negative Covid. - Imaging notable for bibasilar infiltrates and atelectasis similar to prior - Upon serial reexamination after treatment the patient was somewhat improved. Repeat ABG slowly improving, I believe based on clinical exam at this time that patient does not require progression to intubation as he is making improvements with BiPAP and mental status is still maintained - Based on patient history, evaluation, labs, and imaging as interpreted the most likely cause of the patient's condition is acute on chronic hypercapnic and hypoxic respiratory failure, acute on chronic diastolic heart failure - The results of ED evaluation were discussed with the patient including plan for admission due to requirement for level of care not available if discharged to prevent significant worsening/deterioration. - Hospitalist service contacted and patient to be admitted to the hospital service. - Patient was admitted without further deterioration or significant events though he remains significantly ill Note: Click bubbles or prepopulated burleson in note writing are used for assistance with data collection and billing and are inherently more limited than narrative and other text portions of this note. Please use narrative for additional clinical history and defer to narrative/free test for any case of contradictory information. If information appears in only free text or click bubble it should be considered present or absent as reported. Please contact note scenario writer for clarifications of clinical information or contradictory information. MDM is a brief summary, contradictory or erroneous seeming information should be clarified and full note should be reviewed. Vital Signs: Vital signs: Vital Signs Temperature 98.1 F 12/29/21 23:29 Pulse Rate 71 12/29/21 23:29 Respiratory Rate 21 H 12/29/21 23:29 Blood Pressure 113/69 12/29/21 23:29 Pulse Oximetry 93 12/29/21 23:29 MDM - SOB/Dyspnea Medical Decision Making 66-year-old gentleman with history of diastolic heart failure and COPD with chronic hypoxic respiratory failure presenting with worsening shortness of breath and hypoxemia. Patient found to be hypercapnic and placed on BiPAP. Lasix given and patient admitted for further definitive management. Medical Records I reviewed the patient's medical records. Lab Data I reviewed the patient's lab results. : 12/29/21 03:30 12/29/21 03:30 Labs/Radiology: Radiology Impressions Chest X-Ray 12/28/21 12:15 IMPRESSION: 1. Bibasal infiltrates and atelectasis. Little change since previous study. 2. Cardiac enlargement unchanged. Chest CTA 12/28/21 15:42 IMPRESSION: 1. No evidence for pulmonary embolus. Evaluation is limited in the left lower lobe due to breathing motion artifact. 2. Bibasilar atelectasis. Superimposed pneumonia in the right lower lobe cannot be excluded. Laboratory Results WBC 10.1 10^3/uL (4.0-10.0) H 12/28/21 13:28 RBC 4.34 10^6/uL (4.1-5.3) 12/28/21 13:28 Hgb 12.4 g/dL (11.7-16.6) 12/28/21 13:28 Hct 41.4 % (42.0-52.0) L 12/28/21 13:28 MCV 95.4 fl (80-94) H 12/28/21 13:28 MCH 28.6 pg (28.0-34.0) 12/28/21 13:28 MCHC 30.0 g/dL (30.0-36.0) 12/28/21 13:28 RDW 17.0 % (12.1-15.1) H 12/28/21 13:28 Plt Count 227 10^3/cmm (130-400) 12/28/21 13:28 MPV 10.2 fL (7.4-10.4) 12/28/21 13:28 Neut % (Auto) 92.7 % 12/28/21 13:28 Lymph % (Auto) 1.3 % 12/28/21 13:28 [place] % (Auto) 3.8 % 12/28/21 13:28 Eos % (Auto) 0.8 % 12/28/21 13:28 Baso % (Auto) 0.2 % 12/28/21 13:28 Neut # (Auto) 9.40 10^3/uL (1.8-7.7) H 12/28/21 13:28 Lymph # (Auto) 0.1 10^3/uL (0.8-4.8) L 12/28/21 13:28 [place] # (Auto) 0.4 10^3/uL (0.2-0.9) 12/28/21 13:28 Eos # (Auto) 0.1 10^3/uL (0.0-0.8) 12/28/21 13:28 Baso # (Auto) 0.0 10^3/uL (0.0-0.1) 12/28/21 13:28 Nucleated RBC % (auto) 0 % 12/28/21 13:28 Nucleated RBCs # 0.0 /100WBC 12/28/21 13:28 D-Dimer 1.30 ug/mIFEU (0-0.59) H 12/28/21 13:28 Specimen Type Arterial 12/28/21 15:57 Sample Site Radial, left 12/28/21 15:57 ABG pH 7.30 (7.35-7.45) L 12/28/21 15:57 ABG pCO2 89.7 mmHg (35-45) H* 12/28/21 15:57 ABG pO2 69.5 mmHg (80.0-100.0) L 12/28/21 15:57 ABG HCO3 44.5 mmol/L (22-26) H 12/28/21 15:57 ABG Base Excess 14.1 mmol/L (-2.0-2.0) H 12/28/21 15:57 Gee Test Pos 12/28/21 15:57 Hematocrit 39.6 % (42-52) L 12/28/21 15:57 O2 Delivery Device Bipap 12/28/21 15:57 O2 Liters/Min 10.0 % 12/28/21 12:06 FiO2 40.0 % 12/28/21 15:57 Quality Technician Fiberglass ID glc 12/28/21 15:57 Sodium 140 mmol/L (136-145) 12/28/21 13:28 Potassium 4.3 mmol/L (3.5-5.1) 12/28/21 13:28 Chloride 98 mmol/L (98-107) 12/28/21 13:28 Carbon Dioxide 29 mmol/L (22-29) 12/28/21 13:28 Anion Gap 17.3 (5-19) 12/28/21 13:28 BUN 30 mg/dL (8-23) H 12/28/21 13:28 Creatinine 0.7 mg/dL (0.7-1.2) 12/28/21 13:28 GFR Calculation 113.5 mL/min (90-130) 12/28/21 13:28 Glucose 179 mg/dL (65-115) H 12/28/21 13:28 POC Glucose 157 mg/dL (70-110) H 12/28/21 17:06 Calculated Osmolality 301 mOsm/kg (285-295) H 12/28/21 13:28 Calcium 8.3 mg/dL (8.5-10.5) L 12/28/21 13:28 Iron 72 ug/dL (59-158) 12/28/21 13:28 TIBC 253 mcg/dl 12/28/21 13:28 % Saturation 28.4 % (20-50) 12/28/21 13:28 Unsat Iron Binding 181 ug/dL (112-347) 12/28/21 13:28 Total Bilirubin 0.2 mg/dL (0.15-1.2) 12/28/21 13:28 AST 13 U/L (0-40) 12/28/21 13:28 ALT 20 U/L (0-41) 12/28/21 13:28 Alkaline Phosphatase 62 IU/L (40-130) 12/28/21 13:28 Troponin T Baseline 31 ng/L (0-15) H 12/28/21 13:28 C-Reactive Protein 3.0 mg/L (0.0-4.9) 12/28/21 13:28 NT-Pro-B Natriuret Pep 668 pg/mL (0-125) H 12/28/21 13:28 Total Protein 5.3 g/dL (6.6-8.7) L 12/28/21 13:28 Albumin 3.5 g/dL (3.5-5.2) 12/28/21 13:28 Globulin 1.8 g/dL (1.3-4.6) 12/28/21 13:28 Procalcitonin 0.10 ng/mL (0-0.5) 12/28/21 13:28 Urine Color Yellow (Yellow) 12/28/21 16:00 Urine Appearance Clear (CLEAR) 12/28/21 16:00 Urine pH 5 (5-7) 12/28/21 16:00 Ur Specific [place] 1.020 (1.005-1.030) 12/28/21 16:00 Urine Protein 3+ (Negative) H 12/28/21 16:00 Urine Glucose (UA) Trace (Normal) H 12/28/21 16:00 Urine Ketones Negative (Negative) 12/28/21 16:00 Urine Blood Neg (Negative) 12/28/21 16:00 Urine Nitrate Negative (Negative) 12/28/21 16:00 Urine Bilirubin Neg (Negative) 12/28/21 16:00 Urine Urobilinogen Norm mg/dL (Negative) 12/28/21 16:00 Ur Leukocyte Esterase Negative (Negative) 12/28/21 16:00 Urine RBC None /hpf (0-2) 12/28/21 16:00 Urine WBC Rare /hpf (0-5) 12/28/21 16:00 Ur Squamous Epith Cells 0-4 /hpf (0-5) H 12/28/21 16:00 Amorphous Sediment Not Reportable 12/28/21 16:00 Urine Bacteria Trace /hpf (NONE) 12/28/21 16:00 Hyaline Casts 0-4 /lpf H 12/28/21 16:00 Urine Mucus 1+ /hpf 12/28/21 16:00 Coronavirus 229E (PCR) Not detected (NOT DETECT) 12/28/21 13:54 SARS-CoV-2 (PCR) Not detected (NOT DETECT) 12/28/21 13:54 EKG Data EKG 1: I personally reviewed and interpreted this EKG as follows: EKG Interpretation Date: 12/28/21 EKG interpretation time: 12:22 Interpretation: Twelve-lead EKG shows a regular rhythm at a rate of 90. MS interval 188, QRS duration 110, QTc 404. Normal axis. Interpretation: Sinus rhythm. EKG 2: I personally reviewed and interpreted this EKG as follows: EKG Interpretation Date: 12/28/21 EKG interpretation time: 14:59 Interpretation: Twelve-lead EKG shows a regular rhythm at a rate of 74. MS interval 176, QRS duration 101, QTc 416. Normal axis. Interpretation: Sinus rhythm. EKG 3: I personally reviewed and interpreted this EKG as follows: EKG Interpretation Date: 12/28/21 EKG interpretation time: 13:50 Interpretation: Twelve-lead EKG shows a regular rhythm at a rate of 83. MS interval 180, castration 100, QTc 415. Normal axis. Interpretation: Sinus rhythm. Critical Care Time Critical Care Time: Critical Care Time: Yes Total Critical Care Time: 40 Attestation: Due to a high probability of clinically significant, possibly life threatening deterioration, the patient required my highest level of attention and preparedness to intervene emergently and I personally spent this critical care time directly and personally managing the patient. This critical care time included obtaining a history; examining the patient; pulse oximetry; ordering and review of laboratory and imaging studies; arranging urgent treatment with development of a management plan; evaluation of patient's response to treatment; frequent reassessment; and, discussions with other providers as applicable. It was exclusive of separately billable procedures. Primary system involved is pulmonary Discharge Plan Discharge Patient Disposition: Admitted As Inpatient Admit Provider: Tony Cruz Clinical Impression: Acute on chronic respiratory failure with hypoxia and hypercapnia, CHF (congestive heart failure) Condition: Stable Coding Level of Care Code ED Patient Service Associate for Chg Fwd Exam Comprehensive
--- NOTE | 2021-12-28 12:15 | XR_ITS ---
WS: [id number] Exam: XR chest 1V portable [id number] Date/Time of Exam: 12/28/2021 12:15 PM Reason For Exam: sob Comparison 12/20/2021. Bibasal infiltrates and atelectasis noted. Probable small right basal pleural effusion. The heart is enlarged and unchanged in size. No pneumothorax. The mediastinum is normal in contour. Bony structure s are intact. XR/XR chest 1V portable [id number] IMPRESSION: 1. Bibasal infiltrates and atelectasis. Little change since previous study. 2. Cardiac enlargement unchanged.
--- NOTE | 2021-12-28 12:16 | ECG_ITS ---
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 Measurements Intervals [place] Rate: 90 P: 57 [place]: 188 QRS: 54 QRSD: 110 T: 55 QT: 356 QTc: 437 Interpretive Statements SINUS RHYTHM POSSIBLE LEFT ATRIAL ENLARGEMENT [-0.1mV P-WAVE IN V1/V2] INCOMPLETE RIGHT BUNDLE BRANCH BLOCK [90+ ms QRS DURATION, TERMINAL R IN V1/V2, 40+ ms S IN I/aVL/V4/V5/V6] Compared to ECG 12/16/2021 17:22:28 Sinus bradycardia no longer present Sinus arrhythmia no longer present Indeterminate axis no longer present Electronically Signed On 12-28-2021 17:42:39 CLOSET BUILDER by Krystal Meneses M.D. [id number]
[2021-12-28 12:18] LABS: ABG PH Result 7.21 (7.35-7.45); Arterial Blood Gas Hematocrit 40.7 % (42-52); Base Excess ABG 11.6 mmol/L (-2.0-2.0); Blood Gas Allen Test Pos; Blood Gas Operator Identificat MONRO; Blood Gas Sample Site Radial, left; Blood Gas Sample Type Arterial; HCO3 ABG 44.1 mmol/L (22-26); Oxygen Device NRB
--- NOTE | 2021-12-28 12:47 | PC.NURSE ---
Dr Segal obtain 18g to RFA w ultrasound.
[2021-12-28 13:29] LABS: ABG PH Result 7.29 (7.35-7.45); Arterial Blood Gas Hematocrit 39.1 % (42-52); Base Excess ABG 13.4 mmol/L (-2.0-2.0); Blood Gas Allen Test Pos; Blood Gas Sample Type Arterial; HCO3 ABG 43.9 mmol/L (22-26); PO2 ABG 56.6 mmHg (80.0-100.0)
[2021-12-28 13:33] LABS: ABG PCO2 91.4 mmHg (35-45); Blood Gas Operator Identificat MONRO; Blood Gas Sample Site Radial, right; Oxygen Device BIPAP
[2021-12-28 13:40] LABS: Basophils % 0.2 %; Eosinophils # 0.1 10^3/uL (0.0-0.8); Eosinophils % 0.8 %; Hematocrit 41.4 % (42.0-52.0); Hemoglobin 12.4 g/dL (11.7-16.6); Lymphocytes # 0.1 10^3/uL (0.8-4.8); Lymphocytes % 1.3 %; Mean Corpuscular Hemoglobin 28.6 pg (28.0-34.0); Mean Corpuscular Volume 95.4 fl (80-94); Mean Platelet Volume 10.2 fL (7.4-10.4); Monocytes # 0.4 10^3/uL (0.2-0.9); Monocytes % 3.8 %; Neutrophils % 92.7 %; Nucleated Red Blood Cells % 0 %; Platelet Count 227 10^3/cmm (130-400); Red Blood Count 4.34 10^6/uL (4.1-5.3); White Blood Count 10.1 10^3/uL (4.0-10.0)
--- NOTE | 2021-12-28 14:06 | PC.PHAR ---
pt states he has been taking the medications he was discharged with on 12/24/21-pt states he used lantus solostar 20 units 12/27/21-brenda from [facility] states they didnt fill rx for lantus solostar 15 units hs written on 12/24/21-[facility] pharmacy states they have rx on hold from 09/02/21 for 10 units daily-pts life partner aurelia states the they had a nurse from [facility] and states the nurse hasnt been out to the house for 2-3 weeks-medications entered are meds the pt was discharged with
[2021-12-28 14:12] LABS: Troponin(5th) Baseline 31 ng/L (0-15)
--- NOTE | 2021-12-28 14:16 | ECG_ITS ---
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 Measurements Intervals [place] Rate: 74 P: 64 SC: 176 QRS: 73 QRSD: 101 T: 65 QT: 389 QTc: 432 Interpretive Statements SINUS RHYTHM INCOMPLETE RIGHT BUNDLE BRANCH BLOCK [90+ ms QRS DURATION, TERMINAL R IN V1/V2, 40+ ms S IN I/aVL/V4/V5/V6] Compared to ECG 12/28/2021 13:47:40 No significant changes Electronically Signed On 12-28-2021 17:44:15 OFFICE AIDE by Krystal Meneses M.D. [id number]
[2021-12-28 14:22] LABS: NT Pro B Type Natriuretic Pept 668 pg/mL (0-125)
[2021-12-28 14:40] LABS: Alanine Aminotransferase 20 U/L (0-41); Albumin Level 3.5 g/dL (3.5-5.2); Alkaline Phosphatase 62 IU/L (40-130); Blood Urea Nitrogen 30 mg/dL (8-23); Calcium 8.3 mg/dL (8.5-10.5); Carbon Dioxide 29 mmol/L (22-29); Chloride 98 mmol/L (98-107); Globulin 1.8 g/dL (1.3-4.6); Glomerular Filtration Rate 113.5 mL/min (90-130); Glucose 179 mg/dL (65-115); Osmolality Calculated 301 mOsm/kg (285-295); Sodium 140 mmol/L (136-145); Total Bilirubin 0.2 mg/dL (0.15-1.2); Total Protein 5.3 g/dL (6.6-8.7)
[2021-12-28 14:42] LABS: Anion Gap 17.3 (5-19); Potassium 4.3 mmol/L (3.5-5.1)
[2021-12-28 14:43] LABS: Aspartate Amino Transferase 13 U/L (0-40)
[2021-12-28] MEDS: FUROsemide 10 mg/mL SDV 10mL 60 MG IVP (14:54)
--- NOTE | 2021-12-28 15:33 | PM.HP ---
Providers/Chief Complaint Primary Care Provider: Nasreen Gomez Chief Complaint: SOB, EDEMA History of Present Illness Nagi Cuellar is a 66 year old male with a past medical history of advanced COPD, on home O2, home BiPAP, diastolic heart failure, atrial fibrillation, CAD, sleep apnea, insulin-dependent type 2 diabetes mellitus, hypertension, history of Covid infection, history of GI bleed not on anticoagulation has had recurrent hospitalizations in the last 4 months for SOB 2/2 COPD and CHF exacerbation, intubated on last admission, who presents to ER from home for increased swelling in his arms and found to in hypoxic and hypercapniec respiratory faliure. He was placed on the BiPAP after which his CO2 started improving decision was made to hold off on intubation. Hospital service was consulted for admission for further evaluation and management. Blood work in the ER showed a white count 10.1, hemoglobin of 12.4, repeat ABG 1 hour after BiPAP ventilation showed pH of 7.29, PCO2 of 91(baseline around 60-65), PO2 of 56, chemistry showing sodium of 140, creatinine of 0.7, baseline troponin of 31, proBNP of 668, procalcitonin of 0.1 with chest x-ray as below. Review of Systems General: Reports: ROS unobtainable due to medical condition Medications/Allergies Home Medications Medication Instructions Recorded Confirmed Last Taken Type omeprazole 40 mg capsule,delayed 40 mg PO QAM 07/18/21 12/28/21 11/02/21 History release sitagliptin 50 mg tablet (Januvia) 50 mg PO QAM tab 07/23/21 12/28/21 11/02/21 History Vitamin B12 Gummies 1 - 2 tab PO DAILY 08/02/21 12/28/21 11/02/21 History aspirin 81 mg tablet,delayed 81 mg PO QAM 08/12/21 12/28/21 11/02/21 History release rosuvastatin 20 mg tablet 10 mg PO DAILY 10/01/21 12/28/21 11/01/21 History revefenacin 175 mcg/3 mL solution 175 mcg (3 mL) INHALATION DAILY 10/15/21 12/28/21 11/02/21 Rx for nebulization (Yupelri) #90 ml albuterol sulfate 90 mcg/actuation 1 inh INHALATION Q6H PRN #8.5 g 12/01/21 12/28/21 Unknown Rx aerosol inhaler formoterol fumarate 20 mcg/2 mL 2 ml INHALATION BID #120 ml 12/01/21 12/28/21 Unknown Rx solution for nebulization (Perforomist) ipratropium 20 mcg-albuterol 100 1 puff INHALATION Q6H #4 g 12/01/21 12/28/21 Unknown Rx mcg/actuation mist for inhalation (Combivent Respimat) potassium chloride 20 mEq 20 meq PO DAILY 12/01/21 12/28/21 Unknown History tablet,extended release(part/cryst) amiodarone 200 mg tablet (Pacerone) 200 mg PO DAILY 12/16/21 12/28/21 Unknown History amlodipine 5 mg tablet 5 mg PO DAILY #30 tab 12/24/21 12/28/21 Unknown Rx cefdinir 300 mg capsule 300 mg PO BID #4 cap 12/24/21 12/28/21 Unknown Rx furosemide 40 mg tablet 60 mg PO DAILY@0800 #45 tab 12/24/21 12/28/21 Unknown Rx insulin glargine 100 unit/mL (3 15 unit (0.15 mL) SUBCUT BEDTIME 12/24/21 12/28/21 12/27/21 Rx mL) subcutaneous pen (Lantus #0 ml 20 units Solostar U-100 Insulin) losartan 50 mg tablet 75 mg PO DAILY #45 tab 12/24/21 12/28/21 Unknown Rx metoprolol tartrate 25 mg tablet 25 mg PO BID@0900,2100 #60 tab 12/24/21 12/28/21 Unknown Rx methimazole 5 mg tablet 2.5 mg PO QAM 12/28/21 12/28/21 Unknown History prednisone 20 mg tablet See Rx Instructions .ROUTE .COMPLEX 12/28/21 12/28/21 Unknown History Allergies Allergy/AdvReac Type Severity Reaction Status Date / Time No Known Allergies Allergy Verified 12/16/21 13:50 PFSH Acute PFSH: Medical History (Updated 12/28/21 @ 15:53 by Tony Cruz MD) Atrial fibrillation paroxysmal long-standing; not on anticoagulation due to history GI bleed 2018 while on eliquis BMI 30.0-30.9,adult CAD (coronary artery disease) CHF (congestive heart failure) 12/05/2021 EF 65% with grade 1 diastolic dysfunction Chronic kidney disease, stage II (mild) Chronic respiratory failure with hypoxia COPD (chronic obstructive pulmonary disease) Gold Class D, centrolobular Cor pulmonale COVID-19 (~09/2021) Diabetes GERD (gastroesophageal reflux disease) History of Khan's palsy History of GI bleed (~2018) While on eliquis History of PFTs 03/2020 obstructive and restrictive components described History of sleep study (~2012) Hyperlipidemia Hypertension Hyperthyroidism Nicotine addiction On home oxygen therapy 5L DAYNE (obstructive sleep apnea) Uses bilevel positive airway pressure (BPAP) ventilation at home Surgical History H/O hernia repair (~2015) ventral incisional with repair x 2, in 2016 with mesh and lysis of adhesions History of cardiac catheterization (~07/2021) patent stent per report History of colonoscopy History of coronary artery stent placement x 2 LAD (2005, 2010) History of endoscopy small bowel capsule History of esophagogastroduodenoscopy (EGD) Family History Mother Lung disease COPD Sister Cancer Social History (Updated 12/28/21 @ 15:53 by Tony Cruz MD) Smoking and tobacco status: current some day smoker cigarettes Years cigarettes smoked: 47 [ Other cigarette details: Hx of 2PPD x 47 Years] Second hand smoke exposure: Yes Alcohol intake: current Alcohol intake frequency: holidays/special occasions only Caregiver/support person: Yes Lives independently: Yes Housing: Care Home Marital status: Single Current occupational status: disabled and 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 [employer] Current gender identity: Male Vitals/I&O/Wt Last Vital Signs Temp 98 F 12/28/21 13:30 Pulse 78 12/28/21 13:46 Resp 20 H 12/28/21 15:00 BP 125/71 12/28/21 15:00 Pulse Ox 94 12/28/21 14:45 Weight last 48 hrs Weight 93.44 kg Physical Exam Narrative: General: No acute distress, drowsy but mentation improving, on Bipap HEENT: PERRLA, pupils bilaterally equal and reactive Chest: Normal vesicular breath sounds, no added sounds, equal good air entry bilaterally CVS: S1-S2 regular, no murmurs, no tachycardia, no gallops, no rubs Abdomen: Soft, nontender, no organomegaly, bowel sounds present Neuro: No focal deficits, no facial deformity, AO x3, power 5/5 in all limbs Ext: B/l Pitting edema Data : 12/29/21 03:30 12/29/21 03:30 Micro: Microbiology 12/28/21 13:10 Blood Culture - Preliminary Blood SPECIMEN COLLECTED 12/28/21 13:28 Blood Culture - Preliminary Blood SPECIMEN COLLECTED A&P Assessment and plan (1) Acute on chronic respiratory failure with hypoxia and hypercapnia: Status: Acute (2) COPD (chronic obstructive pulmonary disease): Status: Chronic Qualifiers: COPD type: COPD with acute exacerbation Qualified Code(s): J44.1 - Chronic obstructive pulmonary disease with (acute) exacerbation (3) CHF (congestive heart failure): Status: Chronic (4) Atrial fibrillation: Status: Acute (5) Hypertension: Status: Chronic Qualifiers: Hypertension type: primary hypertension Qualified Code(s): I10 - Essential (primary) hypertension (6) Diabetes mellitus, type II: Status: Chronic (7) Hyperthyroidism: Status: Chronic (8) On home oxygen therapy: Status: Chronic (9) Uses bilevel positive airway pressure (BPAP) ventilation at home: Status: Chronic (10) CAD (coronary artery disease): Status: Chronic Plan Acute on chronic hypoxic and hypercapnic respiratory failure: Continue BiPAP ventilation. Repeat ABG in 1 hour. Patient baseline carbon dioxide 60-65. Could be secondary to CHF versus COPD exacerbation. For CHF: BNP 668. Slightly elevated than his baseline. IV Lasix 40 mg twice daily. Strict input output charting, daily weights. Fluid restriction up to 1500 cc. Echocardiogram done in November 2021 shows a normal EF with grade 1 diastolic dysfunction with a normal RVSP. For COPD exacerbation: DuoNebs every 6 hour, budesonide twice daily. Methylprednisolone 125 mg stat followed by 40 mg every 6 hourly. Will wean aggressively. Check D-dimer. Check CTA for further evaluation for possible PE versus consolidation. Pneumonia less likely. Procalcitonin negative. Check MRSA swab, blood culture, sputum culture, urinalysis, urine Legionella, bacterial antigen For now start patient on vancomycin and Zosyn. Start patient on Levaquin for atypical coverage. If patient remains hemodynamically stable and afebrile for next 24 hours will de-escalate antibiotics. Atrial fibrillation: Continue with home dose of amiodarone and metoprolol. Not on anticoagulation because of GI bleed in the past. Hypertension: Goal blood pressure less than 140/90 mmHg. Continue on antihypertensives at home dose. Hold losartan for now. Type 2 diabetes mellitus: Check A1c. Continue home dose of Lantus. Insulin sliding scale at low-dose protocol. Continue other chronic home medications. Check A1c, lipid panel, iron panel, MRSA swab. CODE STATUS: Full code. Lovenox for DVT prophylaxis. Protonix for PUD prophylaxis. N.p.o. for now. Admit to ICU or CSU as per bed availability. Attestations Medical Necessity Statement*: requires admission for more than 2 midnights for management of acute on chronic hypoxic and hypercapnic respiratory failure Critical Care Time: The high probability of a clinically significant, sudden or life threatening deterioration of the patient's [pulmonary system(s) required my full and direct attention, intervention and personal management. The critical care time is as shown. This time is in addition to time spent performing any reported procedures but includes the following: [x] Data and vital sign review and interpretation [x] Patient assessment, examination and intervention [x] Documentation [x] Medication orders and management Critical Care Time (min): 50 Coding Level of Care Code Acute Management Professional for [facility] Fwd Diagnoses Acute on chronic respiratory failure with hypoxia and hypercapnia J96.21; J96.22 COPD (chronic obstructive pulmonary disease) J44.1 COPD type: COPD with acute exacerbation CHF (congestive heart failure) I50.9 Atrial fibrillation I48.91 Hypertension I10 Hypertension type: primary hypertension Diabetes mellitus, type II E11.9 Hyperthyroidism E05.90 On home oxygen therapy Z99.81 Uses bilevel positive airway pressure (BPAP) ventilation at home Z99.89 CAD (coronary artery disease) I25.10
--- NOTE | 2021-12-28 15:42 | CTR_ITS ---
PROCEDURE INFORMATION: Exam: CTA Chest With Contrast Exam date and time: 12/28/2021 3:42 PM Age: 66 years old Clinical indication: Shortness of breath; Patient HX: Hypoxia; Additional info: Hypoxic respiratory faliure TECHNIQUE: Imaging protocol: Computed tomographic angiography of the chest with contrast. 3D rendering (Not supervised by radiologist): MIP and/or 3D reconstructed images were created by the technologist. Radiation optimization: All CT scans at this facility use at least one of these dose optimization techniques: automated exposure control; mA and/or kV adjustment per patient size (includes targeted exams where dose is matched to clinical indication); or iterative reconstruction. Contrast material: OMNI 350; Contrast volume: 78 ml; Contrast route: INTRAVENOUS (IV); COMPARISON: CT angio chest PE protcl [id number] 10/04/2021 10:51 AM RADIATION DOSE METRICS: Total DLP (mGy-cm): 514.67 FINDINGS: Pulmonary arteries: No filling defects identified in the pulmonary arteries. Evaluation is limited in the left lower lobe due to breathing motion artifact. Aorta: Unremarkable. No aortic aneurysm. No aortic dissection. Lungs: Centrilobular emphysema. Dependent consolidation in the right lower lobe, most likely atelectasis. Mild atelectasis in the left lower lobe and lingula. The lungs are otherwise clear. Pleural spaces: Unremarkable. No pneumothorax. No pleural effusion. Heart: Mild cardiomegaly. Mediastinal space: Using the same measurement technique, stable 2.4 cm nodule in the superior right mediastinum, possibly arising from the right thyroid lobe. Lymph nodes: Unremarkable. No enlarged lymph nodes. Adrenal glands: Stable nodular fullness of the bilateral adrenal glands, most likely adrenal hyperplasia. Bones/joints: Thoracic curvature. Chronic mild midthoracic compression fracture. No acute fracture identified. Soft tissues: Unremarkable. CT/CT angio chest PE protcl [id number] IMPRESSION: 1. No evidence for pulmonary embolus. Evaluation is limited in the left lower lobe due to breathing motion artifact. 2. Bibasilar atelectasis. Superimposed pneumonia in the right lower lobe cannot be excluded.
[2021-12-28 15:48] LABS: Adenovirus Not Detected (NOT DETECT); Chlamydia Pneumoniae Not Detected (NOT DETECT); Coronavirus 229E,HKU1,NL63,OC4 Not Detected (NOT DETECT); Human Metapneumovirus Not Detected (NOT DETECT); Human Rhinovirus/Enterovirus Not Detected (NOT DETECT); Influenza A Not Detected (NOT DETECT); Influenza A H1 Not Detected (NOT DETECT); Influenza A H1-2009 Not Detected (NOT DETECT); Influenza A H3 Not Detected (NOT DETECT); Influenza B Not Detected (NOT DETECT); Mycoplasma Pneumoniae Not Detected (NOT DETECT); Parainfluenza Virus Type 1 Not Detected (NOT DETECT); Parainfluenza Virus Type 2 Not Detected (NOT DETECT); Parainfluenza Virus Type 3 Not Detected (NOT DETECT); Parainfluenza Virus Type 4 Not Detected (NOT DETECT); Respiratory Syncytial Virus A Not Detected (NOT DETECT); Respiratory Syncytial Virus B Not Detected (NOT DETECT); SARS-COV-2 Not Detected (NOT DETECT)
[2021-12-28 15:48] LABS: Glucose Point of Care 156 mg/dL (70-110)
[2021-12-28 16:09] LABS: Arterial Blood Gas Hematocrit 39.6 % (42-52); Base Excess ABG 14.1 mmol/L (-2.0-2.0); Blood Gas Allen Test Pos; Blood Gas Operator Identificat glc; Blood Gas Sample Site Radial, left; Blood Gas Sample Type Arterial; HCO3 ABG 44.5 mmol/L (22-26); Oxygen Device BIPAP; PO2 ABG 69.5 mmHg (80.0-100.0)
[2021-12-28 16:11] LABS: ABG PCO2 89.7 mmHg (35-45)
[2021-12-28 16:23] LABS: Iron 72 ug/dL (59-158)
[2021-12-28] MEDS: budesonide 0.5 mg/2 mL Neb INHALATION (16:42)
[2021-12-28] MEDS: ipratropium-albuterol 3 mL Neb INHALATION ×2 (16:42→20:22)
[2021-12-28 16:52] LABS: Percent Saturation 28.4 % (20-50); Total Iron Binding Capacity 253 mcg/dl; Unsaturated Iron Binding 181 ug/dL (112-347)
[2021-12-28 17:58] LABS: Troponin 5 2HR 28.73 ng/L (0-15); Troponin 5 2HR Delta -2.27 ABS# (0-10)
[2021-12-28] MEDS: iohexol 350 mg/mL 100 mL Btl IV (18:05)
--- NOTE | 2021-12-28 18:16 | ECG_ITS ---
[facility] Test Date: 2021-12-28 Pat Name: Nagi Cuellar Department: Room: Gender: Male Rn Paralegal: : 1955 Requested By: Gigi Segal Order Number: [id number] Dominguez MD: Krystal Meneses M.D. Measurements Intervals [place] Rate: 83 P: 55 ME: 180 QRS: 49 QRSD: 100 T: 57 QT: 376 QTc: 442 Interpretive Statements SINUS RHYTHM POSSIBLE LEFT ATRIAL ENLARGEMENT [-0.1mV P-WAVE IN V1/V2] INCOMPLETE RIGHT BUNDLE BRANCH BLOCK [90+ ms QRS DURATION, TERMINAL R IN V1/V2, 40+ ms S IN I/aVL/V4/V5/V6] Compared to ECG 12/28/2021 12:20:22 No significant changes Electronically Signed On 12-28-2021 17:44:46 TUB MENDER by Krystal Meneses M.D. [email or web address]
--- NOTE | 2021-12-28 18:17 | PC.NURSE ---
To CT lab & then to Critical Care bed 5 per ellen.
--- NOTE | 2021-12-28 18:37 | PC.NURSE ---
Patient arrived to unit at 1800 on oxy mask and was placed on bipap once in room. He is A&Ox4, generalized pitting edema, and distended abd. Patient has tried to take his bipap off. This nurse educated pt on the importance of being compliant with it. Only belongings with patient is a garcia tshirt. The rest of his things are in the ER.
[2021-12-28] MEDS: ferrous gluconate 324 mg Tablet PO (19:16)
[2021-12-28] MEDS: heparin 5,000 unit/mL INJ 1 mL 5000 UNIT SUBCUT (19:17)
[2021-12-28] MEDS: vancomycin 1,250 MG/250 ML PIGGYBACK 250 MG IV (19:17)
[2021-12-28 19:37] LABS: Glucose Point of Care 188 mg/dL (70-110)
[2021-12-28] MEDS: insulin lispro 100 unit/1 mL SUBCUT (19:37)
[2021-12-28 19:39] LABS: Add Urine Culture? No; Add Urine Microscopic? YES; Bacteria Urine TRACE /hpf; Bilirubin Urine Neg (Negative); Blood Urine Neg (Negative); Glucose Urine UA Trace (Normal); Hyaline Casts Urine 0-4 /lpf; Ketones Urine Negative (Negative); Leukocyte Esterase Urine Negative (Negative); Mucus Urine 1+ /hpf; Nitrate Urine Negative (Negative); Protein Urine 3+ (Negative); Squamous Epithelial Cell Urine 0-4 /hpf (0-5); Urine Appearance Clear (CLEAR); Urine Color Yellow (Yellow); Urobilinogen Urine Norm (Negative); WBC Urine RARE /hpf (0-5); pH Urine 5 (5-7)
[2021-12-28] MEDS: sennosides 8.6 mg Tablet 17.2 MG PO (20:04)
[2021-12-28] MEDS: metoprolol tartrate 25 mg Tablet PO (20:04)
[2021-12-28] MEDS: piperacillin-tazobactam 3.375 GM in sodium chloride 0.9% (plus) 50 ML IV (20:31)
[2021-12-28 21:02] LABS: Troponin 5 6HR 28.59 ng/L (0-15)
[2021-12-28 21:06] LABS: Troponin 5 6HR Delta -2.41 ng/L (0-12)
[2021-12-28] MEDS: insulin glargine 100 units/1 mL 15 UNIT SUBCUT (22:02)
[2021-12-28 22:21] LABS: Glucose Point of Care 154 mg/dL (70-110)
[2021-12-29] VITALS (54 sets, daily range): BP systolic 101–157; BP diastolic 60–105; PULSE 55–91; RESP 14–28; TEMP 36.6–36.9; O2SAT 81–98
[2021-12-29] MEDS: heparin 5,000 unit/mL INJ 1 mL 5000 UNIT SUBCUT ×3 (02:03→17:20)
[2021-12-29] MEDS: ipratropium-albuterol 3 mL Neb INHALATION ×4 (02:31→20:21)
[2021-12-29] MEDS: piperacillin-tazobactam 3.375 GM in sodium chloride 0.9% (plus) 50 ML IV ×3 (03:13→19:20)
[2021-12-29 03:58] LABS: Basophils % 0.2 %; Hematocrit 39.2 % (42.0-52.0); Hemoglobin 12.1 g/dL (11.7-16.6); Lymphocytes # 0.1 10^3/uL (0.8-4.8); Lymphocytes % 2.2 %; Mean Corpuscular HGB Conc 30.9 g/dL (30.0-36.0); Monocytes # 0.1 10^3/uL (0.2-0.9); Monocytes % 0.9 %; Neutrophils # 6.19 10^3/uL (1.8-7.7); Neutrophils % 95.6 %; Nucleated Red Blood Cells % 0 %; Platelet Count 209 10^3/cmm (130-400); Red Blood Count 4.17 10^6/uL (4.1-5.3); Red Cell Distribution Width 17.2 % (12.1-15.1); White Blood Count 6.5 10^3/uL (4.0-10.0)
[2021-12-29 04:16] LABS: Alanine Aminotransferase 18 U/L (0-41); Albumin Level 3.4 g/dL (3.5-5.2); Alkaline Phosphatase 64 IU/L (40-130); Anion Gap 11.3 (5-19); Aspartate Amino Transferase 15 U/L (0-40); Blood Urea Nitrogen 34 mg/dL (8-23); Calcium 8.5 mg/dL (8.5-10.5); Carbon Dioxide 39 mmol/L (22-29); Chloride 99 mmol/L (98-107); Chol HDL Ratio 2.65 mg/dL (1.0-5.00); Cholesterol 167 mg/dL (0-200); Globulin 1.8 g/dL (1.3-4.6); Glomerular Filtration Rate 97.3 mL/min (90-130); Glucose 166 mg/dL (65-115); HDL Cholesterol 63 mg/dL (60-100); LDL Cholesterol Calculated 86 mg/dL (50-129); Osmolality Calculated 311 mOsm/kg (285-295); Potassium 4.3 mmol/L (3.5-5.1); Sodium 145 mmol/L (136-145); Total Bilirubin 0.2 mg/dL (0.15-1.2); Total Protein 5.2 g/dL (6.6-8.7); Triglycerides 89 mg/dL (0-150); VLDL Cholestrol Calculation 18 mg/dL (0-30)
[2021-12-29 04:21] LABS: Estmated Average Glucose 160; Hemoglobin A1C 7.2 % (4.0-6.0)
[2021-12-29] MEDS: aspirin 81 mg EC Tablet PO (05:24)
[2021-12-29] MEDS: pantoprazole DR 40 mg Tablet PO (05:24)
[2021-12-29] MEDS: methIMAzole 5 MG Tablet 2.5 MG PO (05:24)
[2021-12-29] MEDS: vancomycin 1,250 MG/250 ML PIGGYBACK 250 MG IV ×2 (05:25→17:19)
[2021-12-29] MEDS: amlodipine 5 mg Tablet PO (08:15)
[2021-12-29] MEDS: atorvastatin 40 mg Tablet 20 MG PO (08:15)
[2021-12-29] MEDS: ferrous gluconate 324 mg Tablet PO ×2 (08:15→17:20)
[2021-12-29] MEDS: amiodarone 200 mg Tablet PO (08:15)
[2021-12-29] MEDS: metoprolol tartrate 25 mg Tablet PO ×2 (08:15→20:51)
[2021-12-29] MEDS: insulin lispro 100 unit/1 mL SUBCUT ×4 (08:29→20:51)
[2021-12-29] MEDS: budesonide 0.5 mg/2 mL Neb INHALATION ×2 (09:22→20:21)
[2021-12-29 10:18] LABS: ABG PCO2 57.3 mmHg (35-45); ABG PH Result 7.47 (7.35-7.45); Alveolar-Arterial Oxygen Gradi 19.5 mmHg (5-10); Arterial Blood Gas Hematocrit 37.7 % (42-52); Blood Gas Allen Test Pos; Blood Gas Operator Identificat glc; Blood Gas Sample Site Radial, left; Blood Gas Sample Type Arterial; Carboxyhemoglobin 1.1 %THgb (0.4-20.1); HCO3 ABG 41.2 mmol/L (22-26); Ionized Calcium Level - ABG 1.1 mmol/L (1.1-1.4); Methemoglobin 0.7 % (0.4-1.5); Oxygen Device BIPAP; Oxygen Saturation ABG 94.7; PO2 ABG 69.7 mmHg (80.0-100.0); Potassium Level - ABG 3.8 mmol/L (3.5-5.0); Total Hemoglobin 12.3 g/dL (14-18)
--- NOTE | 2021-12-29 10:36 | PC.CHAP ---
Pastoral Care Encounter/Spiritual Assessment Type of Contact [] Declined dining service inspector visit [] Patient/Family/Request visit [] Outpatient visit [] Follow-up visit [] Physician referral [] Code/Alert [x] Routine visit [] Staff referral [] Actively dying [] Patient sleeping [] Family support [] [] Out of room [] Palliative care [] [x] Receiving care in room [] Pre-surgical visit [] Trauma [] Long length of stay [x] ICU visit [x] Other: oxg Relational/Emotional Strength [] Patient feels connected with others/family/visitors/staff [] Distress [] Loneliness/isolation [] Abandonment Spirituality of Patient [] Person of Margret [] Attends Anabaptism of their Margret [] Believes in Prayer [] Reads Bible or Anglican materials [] There are Spiritual issues to be addressed Offal Roller Interventions [x] Prayer [] Active listening [] Non-anxious presence [] Spiritual/emotional support [] Crisis/trauma care [] Spiritual counseling [] Bereavement support [] Provided bereavement packet [] Provided Bible/devotional materials [] Provided toy/stuffed animal, coloring book to patient or family member [] Provided Communion [] Anointing/[place] [] Salvation [x] Completed spiritual assessment [] Other: Impact on Illness or Injury [] Angry [] Fearful [] Anxious [] Often cries [] Exhaustion [] Unable to work [] Unable to attend latter day [] Unable to walk/stand [] Unable to read [] Unable to drive [] Unable to eat/drink [] Unable to sleep [] Unable to be with family [] Patient intubated [] Other: Summary Time spent with patient
[2021-12-29 11:06] LABS: Glucose Point of Care 170 mg/dL (70-110)
--- NOTE | 2021-12-29 11:37 | PC.NURSE ---
1045 Pt placed on 4LNC per RT. Tolerating well at this time.
--- NOTE | 2021-12-29 11:45 | PM.PN ---
Subjective Subjective: No events overnight. Patient has remained on BiPAP. Today morning after repeat ABG patient was placed on 4 L nasal cannula. Patient was awake and alert. Asking for food. We discussed in detail regarding the circumstances prior to come to the hospital. Patient states he has been using her BiPAP currently. He states he does forget to chronic oxygen sometimes or for proper water and has BiPAP. But states has been using it regularly along with the medications. He is frustrated why does he keep coming to the hospital, why does he keep having difficulty with breathing and swelling. We discussed multiple etiologies for his condition and discussed that patient for now would need to be in a close monitor setting at least a couple of weeks to get over the vicious cycle of recurrent admissions. Patient verbalized understanding and is agreeable to go to SNF. Vitals/I&O/Wt Last Vital Signs Temp 97.9 F 12/29/21 08:01 Pulse 63 12/29/21 10:04 Resp 23 H 12/29/21 09:22 BP 157/90 12/29/21 08:31 Pulse Ox 94 12/29/21 10:04 12/28/21 12/29/21 12/29/21 22:59 06:59 14:59 Intake Total 250 / 250 300 / 550 110 / 110 Output Total 1000 / 1000 500 / 1500 Balance -750 / -750 -200 / -950 110 / 110 Weight last 48 hrs Weight 94.619 kg Weight 94.801 kg Weight 94.801 kg Weight 93.44 kg Physical Exam Narrative: General: No acute distress, AOx3, currently on 4 L nasal cannula HEENT: PERRLA, pupils bilaterally equal and reactive Chest: Bilateral bronchial breath sounds, coarse crackles present mostly in bilateral lower zone, diffuse rhonchi all over the lung [place], equal good air entry bilaterally CVS: S1-S2 regular, no murmurs, no tachycardia, no gallops, no rubs Abdomen: Soft, nontender, no organomegaly, bowel sounds present Neuro: No focal deficits, no facial deformity, AO x3, power 5/5 in all limbs Ext: B/l Pitting edema Urinary Catheter Management: Matias: Cath Placed During This Visit: yes Reason for Continuing Indwelling Catheter: Accurate Measurement of Urinary Output in Critically Ill Patients Urinary Catheter Date of Insertion: 12/28/21 Urinary Catheter Time of Insertion: 16:47 Data : 12/29/21 03:30 12/29/21 03:30 Micro: Microbiology 12/28/21 16:00 Bacterial Antigens - Final Urine Kidney 12/28/21 16:00 Legionella Urinary Antigen - Final Urine,Clean Catch 12/28/21 13:10 Blood Culture - Preliminary Blood SPECIMEN COLLECTED 12/28/21 13:28 Blood Culture - Preliminary Blood SPECIMEN COLLECTED A&P Assessment and plan (1) Acute on chronic respiratory failure with hypoxia and hypercapnia: Status: Acute (2) COPD (chronic obstructive pulmonary disease): Status: Chronic Qualifiers: COPD type: COPD with acute exacerbation Qualified Code(s): J44.1 - Chronic obstructive pulmonary disease with (acute) exacerbation (3) CHF (congestive heart failure): Status: Chronic (4) Atrial fibrillation: Status: Acute (5) Hypertension: Status: Chronic Qualifiers: Hypertension type: primary hypertension Qualified Code(s): I10 - Essential (primary) hypertension (6) Diabetes mellitus, type II: Status: Chronic (7) Hyperthyroidism: Status: Chronic (8) On home oxygen therapy: Status: Chronic (9) Uses bilevel positive airway pressure (BPAP) ventilation at home: Status: Chronic (10) CAD (coronary artery disease): Status: Chronic (11) Noncompliance: Status: Acute Plan Acute on chronic hypoxic and hypercapnic respiratory failure: Continue BiPAP ventilation. Repeat ABG in 1 hour. Patient baseline carbon dioxide 60-65. Could be secondary to CHF versus COPD exacerbation. For CHF: BNP 668. Slightly elevated than his baseline. IV Lasix 40 mg twice daily. Strict input output charting, daily weights. Fluid restriction up to 1500 cc. Echocardiogram done in November 2021 shows a normal EF with grade 1 diastolic dysfunction with a normal RVSP. For COPD exacerbation: DuoNebs every 6 hour, budesonide twice daily. Wean down Solu-Medrol 40 mg every 8 hours. Oxygen supplementation keeping saturation over 88%. BiPAP nightly. CT results appreciated. Pneumonia less likely. Procalcitonin negative. Check MRSA swab, blood culture, sputum culture. Legionella, bacterial antigen negative. Continue with vancomycin and Zosyn. Start patient on Levaquin for atypical coverage. If patient remains hemodynamically stable and afebrile for next 24 hours will de-escalate antibiotics. Atrial fibrillation: Continue with home dose of amiodarone and metoprolol. Not on anticoagulation because of GI bleed in the past. Hypertension: Goal blood pressure less than 140/90 mmHg. Continue on antihypertensives at home dose. Hold losartan for now. Type 2 diabetes mellitus: A1c 7.2. Continue home dose of Lantus. Insulin sliding scale at low-dose protocol. Continue other chronic home medications. CODE STATUS: Full code. Lovenox for DVT prophylaxis. Protonix for PUD prophylaxis. Carb consistent mechanical soft diet. Transfer out of ICU to [facility]. Goals of care discussion:He is frustrated why does he keep coming to the hospital, why does he keep having difficulty with breathing and swelling. We discussed multiple etiologies for his condition and discussed that patient for now would need to be in a close monitor setting at least a couple of weeks to get over the vicious cycle of recurrent admissions. Patient verbalized understanding and is agreeable to go to SNF. Case management alerted. Attestations Medical Necessity Statement*: Requires further hospitalization for management of acute on chronic hypoxic and hypercapnic respiratory failure, recurrent admissions secondary to CHF and COPD exacerbation while safe discharge planning is sought Time Spent in Patient Care: Greater than 35 minutes Coding Level of Care Code Acute Magnet Maker for [facility] Fwd Diagnoses Acute on chronic respiratory failure with hypoxia and hypercapnia J96.21; J96.22 COPD (chronic obstructive pulmonary disease) J44.1 COPD type: COPD with acute exacerbation CHF (congestive heart failure) I50.9 Atrial fibrillation I48.91 Hypertension I10 Hypertension type: primary hypertension Diabetes mellitus, type II E11.9 Hyperthyroidism E05.90 On home oxygen therapy Z99.81 Uses bilevel positive airway pressure (BPAP) ventilation at home Z99.89 CAD (coronary artery disease) I25.10 Noncompliance Z91.19
--- NOTE | 2021-12-29 14:43 | PC.RESP ---
RT Shift Note Frequent safety and respiratory rounds continue. Orders completed as indicated. Patient monitored pre and post treatments throughout shift. Patient [Did. tolerate treatments appropriately. Condition [.DidNotChange]. Patient and/or asset protection representative educated on respiratory treatment and medications. Patient and/or asset protection representative [verbalized understanding]. Will continue to monitor patient progress.
--- NOTE | 2021-12-29 15:33 | PC.NURSE ---
Patient arrived from ICU, oriented to room. Will continue care.
--- NOTE | 2021-12-29 15:36 | PC.NURSE ---
Pt transferred to room 276-2 on 4lnc. Tolerated well. Report given to monorail charger operator Katie.
[2021-12-29 17:19] LABS: Glucose Point of Care 183 mg/dL (70-110)
[2021-12-29 19:25] LABS: Glucose Point of Care 157 mg/dL (70-110)
[2021-12-29 20:27] LABS: Glucose Point of Care 337 mg/dL (70-110)
[2021-12-29] MEDS: insulin glargine 100 units/1 mL 15 UNIT SUBCUT (20:50)
[2021-12-29] MEDS: sennosides 8.6 mg Tablet 17.2 MG PO (20:51)
[2021-12-30] VITALS (14 sets, daily range): BP systolic 131–159; BP diastolic 72–84; PULSE 58–85; RESP 15–21; TEMP 36.6–37.1; O2SAT 91–95
[2021-12-30] MEDS: heparin 5,000 unit/mL INJ 1 mL 5000 UNIT SUBCUT ×3 (02:29→17:33)
[2021-12-30] MEDS: piperacillin-tazobactam 3.375 GM in sodium chloride 0.9% (plus) 50 ML IV ×3 (02:33→18:13)
[2021-12-30] MEDS: ipratropium-albuterol 3 mL Neb INHALATION ×4 (03:10→20:20)
[2021-12-30 04:54] LABS: Basophils % 0.1 %; Hematocrit 36.6 % (42.0-52.0); Hemoglobin 11.6 g/dL (11.7-16.6); Lymphocytes # 0.1 10^3/uL (0.8-4.8); Lymphocytes % 1.4 %; Mean Corpuscular HGB Conc 31.7 g/dL (30.0-36.0); Mean Corpuscular Hemoglobin 29.1 pg (28.0-34.0); Mean Corpuscular Volume 91.7 fl (80-94); Mean Platelet Volume 10.2 fL (7.4-10.4); Monocytes # 0.2 10^3/uL (0.2-0.9); Monocytes % 2.1 %; Neutrophils # 9.79 10^3/uL (1.8-7.7); Neutrophils % 95.6 %; Nucleated Red Blood Cells % 0 %; Platelet Count 212 10^3/cmm (130-400); Red Blood Count 3.99 10^6/uL (4.1-5.3); Red Cell Distribution Width 17.2 % (12.1-15.1); White Blood Count 10.2 10^3/uL (4.0-10.0)
[2021-12-30 05:11] LABS: Alanine Aminotransferase 16 U/L (0-41); Albumin Level 3.1 g/dL (3.5-5.2); Alkaline Phosphatase 69 IU/L (40-130); Anion Gap 9.5 (5-19); Aspartate Amino Transferase 10 U/L (0-40); Blood Urea Nitrogen 34 mg/dL (8-23); Calcium 8.8 mg/dL (8.5-10.5); Carbon Dioxide 37 mmol/L (22-29); Chloride 97 mmol/L (98-107); Globulin 2.2 g/dL (1.3-4.6); Glomerular Filtration Rate 97.3 mL/min (90-130); Glucose 289 mg/dL (65-115); Osmolality Calculated 306 mOsm/kg (285-295); Potassium 4.5 mmol/L (3.5-5.1); Sodium 139 mmol/L (136-145); Total Bilirubin 0.2 mg/dL (0.15-1.2); Total Protein 5.3 g/dL (6.6-8.7); Vancomycin Trough 20.1 ug/mL (10-15)
[2021-12-30] MEDS: pantoprazole DR 40 mg Tablet PO (05:45)
[2021-12-30] MEDS: methIMAzole 5 MG Tablet 2.5 MG PO (05:45)
[2021-12-30] MEDS: aspirin 81 mg EC Tablet PO (05:45)
[2021-12-30 06:32] LABS: Glucose Point of Care 268 mg/dL (70-110)
[2021-12-30 07:25] LABS: Glucose Point of Care 395 mg/dL (70-110)
[2021-12-30] MEDS: atorvastatin 40 mg Tablet 20 MG PO (08:02)
[2021-12-30] MEDS: amlodipine 5 mg Tablet PO (08:02)
[2021-12-30] MEDS: ferrous gluconate 324 mg Tablet PO ×2 (08:02→17:33)
[2021-12-30] MEDS: amiodarone 200 mg Tablet PO (08:02)
[2021-12-30] MEDS: metoprolol tartrate 25 mg Tablet PO ×2 (08:02→21:49)
[2021-12-30] MEDS: insulin lispro 100 unit/1 mL SUBCUT ×4 (08:02→21:49)
[2021-12-30] MEDS: budesonide 0.5 mg/2 mL Neb INHALATION ×2 (08:18→20:20)
[2021-12-30 11:11] LABS: Glucose Point of Care 297 mg/dL (70-110)
[2021-12-30] MEDS: FUROsemide 10 mg/mL SDV 4mL 40 MG IVP (11:34)
--- NOTE | 2021-12-30 12:17 | P.PN_ITS ---
Subjective Subjective: No acute events overnight. Wore BiPAP overnight. Today morning examination sitting up in bedside. Talking to family over the phone. States he is feeling better but still concerned about swelling in his hands. Denies any nausea, vomiting, headache. Vitals/I&O/Wt Last Vital Signs Temp 98.5 F 12/30/21 08:41 Pulse 71 12/30/21 08:41 Resp 16 12/30/21 08:41 BP 157/84 12/30/21 08:41 Pulse Ox 93 12/30/21 08:41 12/29/21 12/30/21 12/30/21 22:59 06:59 14:59 Intake Total 1020 / 1850 100 / 1950 Output Total 650 / 650 Balance 1020 / 1850 -550 / 1300 Weight last 48 hrs Weight 98.033 kg Weight 94.619 kg Weight 94.801 kg Weight 94.801 kg Physical Exam Narrative: General: No acute distress, AOx3, currently on 4 L nasal cannula HEENT: PERRLA, pupils bilaterally equal and reactive Chest: Bilateral bronchial breath sounds, coarse crackles present mostly in bilateral lower zone, diffuse rhonchi all over the lung [place], equal good air entry bilaterally CVS: S1-S2 regular, no murmurs, no tachycardia, no gallops, no rubs Abdomen: Soft, nontender, no organomegaly, bowel sounds present Neuro: No focal deficits, no facial deformity, AO x3, power 5/5 in all limbs Ext: B/l Pitting edema Urinary Catheter Management: Matias: Cath Placed During This Visit: yes Reason for Continuing Indwelling Catheter: Acute Urinary Retention or Obstruction Urinary Catheter Date of Insertion: 12/28/21 Urinary Catheter Time of Insertion: 16:47 Data : 12/30/21 04:45 12/30/21 04:45 Micro: Microbiology 12/28/21 19:57 MRSA Culture - Final Nose 12/28/21 13:10 Blood Culture - Preliminary Blood NEGATIVE TO DATE 12/28/21 13:28 Blood Culture - Preliminary Blood NEGATIVE TO DATE 12/28/21 16:00 Bacterial Antigens - Final Urine Kidney A&P Assessment and plan (1) Acute on chronic respiratory failure with hypoxia and hypercapnia: Status: Acute (2) COPD (chronic obstructive pulmonary disease): Status: Chronic Qualifiers: COPD type: COPD with acute exacerbation Qualified Code(s): J44.1 - ronic obstructive pulmonary disease with (acute) exacerbation (3) CHF (congestive heart failure): Status: Chronic (4) Atrial fibrillation: Status: Acute (5) Hypertension: Status: Chronic Qualifiers: Hypertension type: primary hypertension Qualified Code(s): I10 - Essential (primary) hypertension (6) Diabetes mellitus, type II: Status: Chronic (7) Hyperthyroidism: Status: Chronic (8) On home oxygen therapy: Status: Chronic (9) Uses bilevel positive airway pressure (BPAP) ventilation at home: Status: Chronic (10) CAD (coronary artery disease): Status: Chronic (11) Noncompliance: Status: Acute Plan Acute on chronic hypoxic and hypercapnic respiratory failure: Continue BiPAP ventilation. Repeat ABG in 1 hour. Patient baseline carbon dioxide 60-65. Could be secondary to CHF versus COPD exacerbation. For CHF: BNP 668. Slightly elevated than his baseline. IV Lasix 40 mg once daily. Start on acetazolamide as patient is developing contraction alkalosis. Depending on the urine output might have to contemplate adding metolazone. Strict input output charting, daily weights. Fluid restriction up to 1500 cc. Echocardiogram done in November 2021 shows a normal EF with grade 1 diastolic dysfunction with a normal RVSP. For COPD exacerbation: DuoNebs every 6 hour, budesonide twice daily. Wean down Solu-Medrol further to 40 mg every twelve hours. Oxygen supplementation keeping saturation over 88%. BiPAP nightly. CT results appreciated. Pneumonia less likely. Procalcitonin negative. Check MRSA swab, blood culture, sputum culture. Legionella, bacterial antigen negative. Continue with vancomycin and Zosyn. Start patient on Levaquin for atypical c overage. If patient remains hemodynamically stable and afebrile for next 24 hours will de-escalate antibiotics. Atrial fibrillation: Continue with home dose of amiodarone and metoprolol. Not on anticoagulation because of GI bleed in the past. Hypertension: Goal blood pressure less than 140/90 mmHg. Continue on antihypertensives at home dose. Hold losartan for now. Type 2 diabetes mellitus: A1c 7.2. Continue home dose of Lantus. Insulin sliding scale at low-dose protocol. Continue other chronic home medications. CODE STATUS: Full code. Lovenox for DVT prophylaxis. Protonix for PUD prophylaxis. Carb consistent mechanical soft diet. Transfer out of ICU to [facility]. Goals of care discussion:He is frustrated why does he keep coming to the hospital, why does he keep having difficulty with breathing and swelling. We discussed multiple etiologies for his condition and discussed that patient for now would need to be in a close monitor setting at least a couple of weeks to get over the vicious cycle of recurrent admissions. Patient verbalized understanding and is agreeable to go to SNF. Case management alerted. Plan for day: Wean down Solu-Medrol. Add acetazolamide. Continue Lasix. Monitor input output. Wean down oxygen. BiPAP nightly. Safe discharge planning to SNF Attestations Medical Necessity Statement*: Requires further hospitalization for management of acute on chronic hypoxic and hypercapnic respiratory failure secondary to COPD exacerbation, congestive heart failure Time Spent in Patient Care: Greater than 35 minutes Coding Level of Care Code Acute Inspector Tester Sorter for [place] Fwd Diagnoses Acute on chronic respiratory failure with hypoxia and hypercapnia J96.21; J96.22 COPD (chronic obstructive pulmonary disease) J44.1 COPD type: COPD with acute exacerbation CHF (congestive heart failure) I50.9 Atrial fibrillation I48.91 Hypertension I10 Hypertension type: primary hypertension Diabetes mellitus, type II E11.9 Hyperthyroidism E05.90 On home oxygen therapy Z99.81 Uses bilevel positive airway pressure (BPAP) ventilation at home Z99.89 CAD (coronary artery disease) I25.10 Noncompliance Z91.19
[2021-12-30] MEDS: acetaZOLAMIDE 250 mg Tablet PO (13:03)
--- NOTE | 2021-12-30 17:46 | PC.NURSE ---
Patient swelling is going down with diuretics, fields intact and clean with adequate output. Blood sugars running high, sliding scale given as ordered. Patient worked with PT and OT today, walking around the room. Patient had one large bowel movement. Patient still on 3 L of O2. Will continue to monitor.
[2021-12-30] MEDS: insulin lispro 100 unit/1 mL 15 UNIT SUBCUT (18:11)
[2021-12-30 18:31] LABS: Glucose Point of Care 457 mg/dL (70-110)
[2021-12-30 21:12] LABS: Glucose Point of Care 285 mg/dL (70-110)
[2021-12-30] MEDS: sennosides 8.6 mg Tablet 17.2 MG PO (21:49)
[2021-12-30] MEDS: insulin glargine 100 units/1 mL 15 UNIT SUBCUT (21:49)
[2021-12-31] VITALS (17 sets, daily range): BP systolic 128–146; BP diastolic 60–78; PULSE 60–83; RESP 17–21; TEMP 36.3–37; O2SAT 90–98
[2021-12-31] MEDS: piperacillin-tazobactam 3.375 GM in sodium chloride 0.9% (plus) 50 ML IV ×3 (02:43→18:30)
[2021-12-31] MEDS: heparin 5,000 unit/mL INJ 1 mL 5000 UNIT SUBCUT ×3 (02:43→17:53)
[2021-12-31 03:04] LABS: Basophils % 0.1 %; Eosinophils % 0.1 %; Hemoglobin 12.1 g/dL (11.7-16.6); Lymphocytes # 0.1 10^3/uL (0.8-4.8); Lymphocytes % 1.1 %; Mean Corpuscular HGB Conc 31.8 g/dL (30.0-36.0); Mean Corpuscular Hemoglobin 29.3 pg (28.0-34.0); Mean Platelet Volume 11.4 fL (7.4-10.4); Monocytes # 0.4 10^3/uL (0.2-0.9); Monocytes % 3.5 %; Neutrophils # 11.15 10^3/uL (1.8-7.7); Neutrophils % 94.6 %; Nucleated Red Blood Cells % 0 %; Platelet Count 262 10^3/cmm (130-400); Red Blood Count 4.13 10^6/uL (4.1-5.3); Red Cell Distribution Width 17.5 % (12.1-15.1); White Blood Count 11.8 10^3/uL (4.0-10.0)
[2021-12-31 03:21] LABS: Alanine Aminotransferase 18 U/L (0-41); Albumin Level 3.3 g/dL (3.5-5.2); Alkaline Phosphatase 72 IU/L (40-130); Blood Urea Nitrogen 30 mg/dL (8-23); Calcium 9.1 mg/dL (8.5-10.5); Carbon Dioxide 34 mmol/L (22-29); Chloride 96 mmol/L (98-107); Globulin 1.9 g/dL (1.3-4.6); Glomerular Filtration Rate 97.3 mL/min (90-130); Glucose 149 mg/dL (65-115); Osmolality Calculated 297 mOsm/kg (285-295); Sodium 139 mmol/L (136-145); Total Bilirubin 0.2 mg/dL (0.15-1.2); Total Protein 5.2 g/dL (6.6-8.7)
[2021-12-31] MEDS: ipratropium-albuterol 3 mL Neb INHALATION ×4 (03:23→21:16)
[2021-12-31 03:31] LABS: Anion Gap 12.8 (5-19); Aspartate Amino Transferase 12 U/L (0-40); Potassium 3.8 mmol/L (3.5-5.1)
[2021-12-31] MEDS: pantoprazole DR 40 mg Tablet PO (05:59)
[2021-12-31] MEDS: aspirin 81 mg EC Tablet PO (05:59)
[2021-12-31] MEDS: methIMAzole 5 MG Tablet 2.5 MG PO (06:00)
[2021-12-31 06:39] LABS: Glucose Point of Care 160 mg/dL (70-110)
[2021-12-31] MEDS: ferrous gluconate 324 mg Tablet PO ×2 (08:21→17:53)
[2021-12-31] MEDS: insulin lispro 100 unit/1 mL SUBCUT ×4 (08:21→22:36)
[2021-12-31] MEDS: acetaZOLAMIDE 250 mg Tablet PO (08:21)
[2021-12-31] MEDS: amlodipine 5 mg Tablet PO (08:21)
[2021-12-31] MEDS: atorvastatin 40 mg Tablet 20 MG PO (08:21)
[2021-12-31] MEDS: metoprolol tartrate 25 mg Tablet PO ×2 (08:22→22:37)
[2021-12-31] MEDS: budesonide 0.5 mg/2 mL Neb INHALATION ×2 (08:31→21:16)
--- NOTE | 2021-12-31 08:53 | XR_ITS ---
WS: [id number] Exam: XR chest 1V portable [id number] Date/Time of Exam: 12/31/2021 8:54 AM Reason For Exam: sob Comparison 12/28/2021. There is consolidation and atelectasis involving the right and left lower lobes. Bibasal pleural effu sions are seen. The heart is enlarged. There is increased pulmonary vascularity. No pneumothorax. The mediastinum is normal in contour. Bony structures are intact as visualized. XR/XR chest 1V portable [id number] IMPRESSION: 1. Worsening bibasilar infiltrates and atelectasis since prior study. Increasin g bibasal pleural effusions. 2. Cardiac enlargement with increased pulmonary vascularity. Congestive heart f ailure considered likely.
[2021-12-31] MEDS: amiodarone 200 mg Tablet PO (09:22)
--- NOTE | 2021-12-31 09:35 | PC.SOCIAL ---
IMM Update Pg. 2 of IMM updated and reviewed with patient who verbalized understanding. Copy provided.
--- NOTE | 2021-12-31 11:24 | P.PN_ITS ---
Subjective Subjective: Patient was seen and examined this morning, was complaining of worsening bilateral lower extremity swelling, as well as upper extremity swelling, wants to go to nursing facility for rehab. Medications: Medication Review Details: Generic Name Dose Route Start Last Admin Trade Name Peteq PRN Reason Stop Dose Admin Acetazolamide 250 mg 12/30/21 12:45 12/31/21 08:21 Acetazolamide 25 0 Mg Tablet PO 250 mg DAILY ELLIE Administration Albuterol/Ipratrop ium 3 ml 12/28/21 15:50 12/31/21 14:22 Ipratropium-Albu terol 3 Ml Neb INHALATION 3 ml Q6H.RESPIRATORY S CH Administration Amiodarone HCl 200 mg 12/29/21 09:00 12/31/21 09:22 Amiodarone 200 M g Tablet PO 200 mg DAILY ELLIE Administration Amlodipine Besylat e 5 mg 12/29/21 09:00 12/31/21 08:21 Amlodipine 5 Mg Tablet PO 5 mg DAILY ELLIE Administration Aspirin 81 mg 12/29/21 06:00 12/31/21 05:59 Aspirin 81 Mg Ec Tablet PO 81 mg QAM ELLIE Administration Atorvastatin Calci um 20 mg 12/29/21 09:00 12/31/21 08:21 Atorvastatin 40 Mg Tablet PO 20 mg DAILY ELLIE Administration Budesonide 0.5 mg 12/28/21 15:46 12/31/21 08:31 Budesonide 0.5 M g/2 Ml Neb INHALATION 0.5 mg BID.RESPIRATORY S CH Administration Ferrous Gluconate 324 mg 12/28/21 18:00 12/31/21 08:21 Ferrous Gluconat e 324 Mg Tablet PO 324 mg BIDWM ELLIE Administration Furosemide 40 mg 12/31/21 11:30 12/31/21 12:05 Furosemide 10 Mg /Ml Sdv 4ml IVP 40 mg Q12H ELLIE Administration Heparin Sodium (Po rcine) 5,000 unit 12/28/21 18:22 12/31/21 09:29 Heparin 5,000 Un it/Ml Inj 1 Ml SUBCUT 5,000 unit Q8H ELLIE Administration Piperacillin Sod/T azobactam 50 mls @ 12.5 mls /hr 12/28/21 19:30 12/31/21 16:23 Sod 3.375 gm/ So dium Chloride IV Infused Q8H ELLIE Infusion Insulin Glargine 15 unit 12/28/21 21:00 12/30/21 21:49 Insulin Glargine 100 Units/1 Ml SUBCUT 15 unit BEDTIME ELLIE Administration Insulin Human Lisp ro 0 unit 12/28/21 18:22 12/31/21 12:54 Insulin Lispro 1 00 Unit/1 Ml SUBCUT 10 unit WM&BEDTIME ELLIE Administration Protocol Methimazole 2.5 mg 12/29/21 06:00 12/31/21 06:00 Methimazole 5 Mg Tablet PO 2.5 mg QAM ELLIE Administration Methylprednisolone Sodium Succinate 40 mg 12/30/21 21:00 12/31/21 08:22 Methylprednisolo ne Sod Succ 40 Mg/ Ml Inj IVP 40 mg BID@0900,2100 ELLIE Administration Metoprolol Tartrat e 25 mg 12/28/21 21:00 12/31/21 08:22 Metoprolol Tartr ate 25 Mg Tablet PO 25 mg BID@0900,2100 [facility] Administration Pantoprazole Sodiu m 40 mg 12/29/21 06:00 12/31/21 05:[address] 40 Mg Tablet PO 40 mg QAM ELLIE Administration Senna 17.2 mg 12/28/21 21:00 12/30/21 21:49 Sennosides 8.6 M g Tablet PO 17.2 mg BEDTIME ELLIE Administration Vitals/I&O/Wt Last Vital Signs Temp 98.6 F 12/31/21 07:51 Pulse 65 12/31/21 08:40 Resp 20 H 12/31/21 08:32 BP 142/73 12/31/21 07:51 Pulse Ox 97 12/31/21 08:32 12/30/21 12/31/21 12/31/21 22:59 06:59 14:59 Intake Total 100 / 100 50 / 150 360 / 360 Output Total 1850 / 1850 860 / 2710 Balance -1750 / -1750 -810 / -2560 360 / 360 Weight last 48 hrs Weight 98.033 kg Weight 98.033 kg Physical Exam Const: COMMON NORMALS: patient oriented x3 HENMT: COMMON NORMALS: normocephalic and atraumatic HEAD & SCALP: normocephalic and atraumatic Eye: GENERAL EYE: appearance normal, both eyes and all related structures Chest: COMMONS NORMALS: normal inspection of the chest and normal palpation of entire chest wall CHEST: Yes Symmetrical chest wall rise Resp: EFFORT & INSPECTION: Yes symmetric chest movement OTHER: Minimal Expiratory wheezing present in both lungs [place] , diminished air entr b/l, Use of accessory muscles of respiration. Cardio: COMMON NORMALS: regular rate, regular rhythm, S1 normal heart sound present, S2 normal heart sound present, No gallops present (Cardio), No murmurs present (Cardio), No rub (Cardio) and Peripheral pulses 2+ throughout RATE: regular rate RHYTHM: regular rhythm HEART SOUNDS: S1 normal heart sound present and S2 normal heart sound present PERIPHERAL PULSES: Peripheral pulses 2+ throughout GI: COMMON NORMALS: Normal to inspection, nondistended, normoactive bowel sounds present, Soft to palpation, non-tender, No hepatosplenomegaly present and no masses AUSCULTATION: Yes normoactive bowel sounds PALPATION: Yes Soft to palpation and Yes No hepatosplenomegaly present RECTAL EXAM: Yes deferred Extremity: NARRATIVE EXTREMITY EXAM: 3+ B/L Pitting edema in both lower extremity Neuro: COMMON NORMALS: patient oriented x3 Urinary Catheter Management: Matias: Cath Placed During This Visit: yes Reason for Continuing Indwelling Catheter: Other Urinary Catheter Date of Insertion: 12/28/21 Urinary Catheter Time of Insertion: 16:47 Data : 12/31/21 02:20 12/31/21 02:20 A&P Assessment and plan (1) Acute on chronic respiratory failure with hypoxia and hypercapnia: Status: Acute (2) Atrial fibrillation: Status: Acute (3) CAD (coronary artery disease): Status: Chronic (4) Hypertension: Status: Chronic Qualifiers: Hypertension type: primary hypertension Qualified Code(s): I10 - Essential (primary) hypertension (5) Hyperthyroidism: Status: Chronic (6) Diabetes mellitus, type II: Status: Chronic (7) COPD (chronic obstructive pulmonary disease): Status: Chronic Qualifiers: COPD type: COPD with acute exacerbation Qualified Code(s): J44.1 - Chronic obstructive pulmonary disease with (acute) exacerbation (8) CHF (congestive heart failure): Status: Chronic (9) Uses bilevel positive airway pressure (BPAP) ventilation at home: Status: Chronic (10) On home oxygen therapy: Status: Chronic Plan 66 year old male with a past medical history of advanced COPD, on home O2, home BiPAP, diastolic heart failure, atrial fibrillation, CAD, sleep apnea, insulin- dependent type 2 diabetes mellitus, hypertension, history of Covid infection, history of GI bleed not on anticoagulation has had recurrent hospitalizations in the last 4 months for SOB 2/2 COPD and CHF exacerbation, intubated on last admission, who presents to ER from home for increased swelling in his arms and found to in hypoxic and hypercapniec respiratory faliure. Assessment: # Acute on chronic hypoxic hypercapnic respiratory failure: Secondary to , decompensated heart failure with preserved ejection fraction , pneumonia, COPD exacerbation. X-ray chest has shown: Bilateral pleural effusion, pulmonary vascular congestion, Worsening bibasilar infiltrates and atelectasis. CT angio chest PE protcl: No P.E , Bibasilar atelectasis.? Superimposed pneumonia in the right lower lobe cannot be excluded. ?Has bilateral lower extremity 3+ pitting edema, worsening shortness of breath. proBNP: Mildly elevated Echocardiogram done in November 2021 shows a normal EF with grade 1 diastolic dysfunction with a normal RVSP. Procalcitonin: Normal MRSA PCR negative Urine Legionella antigen: Negative Bacterial antigen panel: Negative Blood culture:NTD DuoNebs every 6 hour, budesonide twice daily. Solu-Medrol 40 mg IV twice daily Lasix 40 mg IV twice daily Acetazolamide to 250 mg p.o. daily Continue Zosyn Vancomycin and levofloxacin has been discontinued Intake output charting Daily weight K>4, MG > 2 Fluid restriction 1500 cc Continue BiPAP #Decompensated HFpEF : Plan as above #COPD exacerbation: Plan as above # Atrial fibrillation: Currently rate controlled Continue amiodarone and metoprolol Continue telemetry monitoring #Hyperthyroidism: Methimazole #DM2 : Continue Lantus, SSI Monitor fingerstick glucose CODE STATUS: Full code. Lovenox for DVT prophylaxis. Protonix for PUD prophylaxis. Carb consistent mechanical soft diet. #Disposition: Patient will need placement to SNF Attestations Medical Necessity Statement*: Patient needs to be in hospital for management of respiratory failure Time Spent in Patient Care: Greater than 35 minutes (>than 50% of time spent in counselling and/or direct pt care on unit) . Coding Level of Care Code Acute Grant Administrator for [facility] Fwd Exam Detailed Diagnoses Acute on chronic respiratory failure with hypoxia and hypercapnia J96.21; J96.22 Atrial fibrillation I48.91 CAD (coronary artery disease) I25.10 Hypertension I10 Hypertension type: primary hypertension Hyperthyroidism E05.90 Diabetes mellitus, type II E11.9 COPD (chronic obstructive pulmonary disease) J44.1 COPD type: COPD with acute exacerbation CHF (congestive heart failure) I50.9 Uses bilevel positive airway pressure (BPAP) ventilation at home Z99.89 On home oxygen therapy Z99.81
[2021-12-31] MEDS: FUROsemide 10 mg/mL SDV 4mL 40 MG IVP ×2 (12:05→22:39)
[2021-12-31 17:25] LABS: Glucose Point of Care 313 mg/dL (70-110)
[2021-12-31 17:25] LABS: Glucose Point of Care 311 mg/dL (70-110)
[2021-12-31 22:31] LABS: Glucose Point of Care 365 mg/dL (70-110)
[2021-12-31] MEDS: insulin glargine 100 units/1 mL 15 UNIT SUBCUT (22:36)
[2021-12-31] MEDS: sennosides 8.6 mg Tablet 17.2 MG PO (22:38)
[2022-01-01] VITALS (15 sets, daily range): BP systolic 132–152; BP diastolic 74–90; PULSE 55–80; RESP 16–21; TEMP 36.6–36.7; O2SAT 92–98
[2022-01-01] MEDS: heparin 5,000 unit/mL INJ 1 mL 5000 UNIT SUBCUT ×2 (02:32→09:33)
[2022-01-01] MEDS: piperacillin-tazobactam 3.375 GM in sodium chloride 0.9% (plus) 50 ML IV ×3 (02:32→20:18)
[2022-01-01] MEDS: ipratropium-albuterol 3 mL Neb INHALATION ×4 (03:30→20:34)
[2022-01-01 04:32] LABS: Basophils % 0.1 %; Hematocrit 40.3 % (42.0-52.0); Hemoglobin 12.6 g/dL (11.7-16.6); Lymphocytes # 0.1 10^3/uL (0.8-4.8); Lymphocytes % 1.3 %; Mean Corpuscular HGB Conc 31.3 g/dL (30.0-36.0); Mean Corpuscular Volume 92.6 fl (80-94); Mean Platelet Volume 11.9 fL (7.4-10.4); Monocytes # 0.3 10^3/uL (0.2-0.9); Monocytes % 3.1 %; Neutrophils # 9.43 10^3/uL (1.8-7.7); Neutrophils % 94.6 %; Nucleated Red Blood Cells % 0 %; Platelet Count 176 10^3/cmm (130-400); Red Blood Count 4.35 10^6/uL (4.1-5.3); Red Cell Distribution Width 17.4 % (12.1-15.1)
[2022-01-01 04:58] LABS: Alanine Aminotransferase 18 U/L (0-41); Albumin Level 3.3 g/dL (3.5-5.2); Alkaline Phosphatase 76 IU/L (40-130); Blood Urea Nitrogen 32 mg/dL (8-23); Calcium 9.2 mg/dL (8.5-10.5); Carbon Dioxide 31 mmol/L (22-29); Chloride 94 mmol/L (98-107); Globulin 2.3 g/dL (1.3-4.6); Glomerular Filtration Rate 75.2 mL/min (90-130); Glucose 231 mg/dL (65-115); Osmolality Calculated 292 mOsm/kg (285-295); Sodium 134 mmol/L (136-145); Total Bilirubin 0.3 mg/dL (0.15-1.2); Total Protein 5.6 g/dL (6.6-8.7)
[2022-01-01 05:10] LABS: Slide Review Slide Review Perform
[2022-01-01 05:22] LABS: Anion Gap 12.9 (5-19); Aspartate Amino Transferase 12 U/L (0-40); Potassium 3.9 mmol/L (3.5-5.1)
[2022-01-01] MEDS: methIMAzole 5 MG Tablet 2.5 MG PO (06:30)
[2022-01-01] MEDS: pantoprazole DR 40 mg Tablet PO (06:31)
[2022-01-01] MEDS: aspirin 81 mg EC Tablet PO (06:31)
[2022-01-01 07:34] LABS: Glucose Point of Care 172 mg/dL (70-110)
[2022-01-01] MEDS: budesonide 0.5 mg/2 mL Neb INHALATION ×2 (08:38→20:34)
[2022-01-01] MEDS: acetaZOLAMIDE 250 mg Tablet PO (09:31)
[2022-01-01] MEDS: ferrous gluconate 324 mg Tablet PO (09:31)
[2022-01-01] MEDS: amiodarone 200 mg Tablet PO (09:32)
[2022-01-01] MEDS: atorvastatin 40 mg Tablet 20 MG PO (09:32)
[2022-01-01] MEDS: amlodipine 5 mg Tablet PO (09:33)
[2022-01-01] MEDS: metoprolol tartrate 25 mg Tablet PO ×2 (09:33→20:19)
[2022-01-01] MEDS: FUROsemide 10 mg/mL SDV 4mL 40 MG IVP (10:51)
[2022-01-01 11:02] LABS: Glucose Point of Care 391 mg/dL (70-110)
--- NOTE | 2022-01-01 12:16 | PC.CHAP ---
Pastoral Care Encounter/Spiritual Assessment Type of Contact [] Declined cloth tester visit [] Patient/Family/Request visit [] Outpatient visit [] Follow-up visit [] Physician referral [] Code/Alert [X] Routine visit [] Staff referral [] Actively dying [X] Patient sleeping [] Family support [] [] Out of room [] Palliative care [] [] Receiving care in room [] Pre-surgical visit [] Trauma [] Long length of stay [] ICU visit [] Other: Relational/Emotional Strength [] Patient feels connected with others/family/visitors/staff [] Distress [] Loneliness/isolation [] Abandonment Spirituality of Patient [] Person of Margret [] Attends Gnosticist of their Margret [] Believes in Prayer [] Reads Bible or Buddhist materials [] There are Spiritual issues to be addressed Extruder Operator Interventions [] Prayer [] Active listening [] Non-anxious presence [] Spiritual/emotional support [] Crisis/trauma care [] Spiritual counseling [] Bereavement support [] Provided bereavement packet [] Provided Bible/devotional materials [] Provided toy/stuffed animal, coloring book to patient or family member [] Provided Communion [] Anointing/[place] [] Salvation [] Completed spiritual assessment [] Other: Impact on Illness or Injury [] Angry [] Fearful [] Anxious [] Often cries [] Exhaustion [] Unable to work [] Unable to attend jewish [] Unable to walk/stand [] Unable to read [] Unable to drive [] Unable to eat/drink [] Unable to sleep [] Unable to be with family [] Patient intubated [] Other: Summary Time spent with patient
[2022-01-01] MEDS: insulin lispro 100 unit/1 mL SUBCUT ×3 (12:26→20:17)
[2022-01-01 17:06] LABS: Glucose Point of Care 305 mg/dL (70-110)
--- NOTE | 2022-01-01 17:18 | P.PN_ITS ---
Subjective Subjective: Patient was seen and examined this morning, bilateral lower extremity swelling has slightly gone down, Still has significant right upper extremity swelling, seen participating with physical therapy. Robust urine output with Lasix. -4.1 Ls. Serum sodium has trended down to 134, continue to monitor BMP, as the patient is on Lasix twice daily. Serum bicarb has improved to 31. Medications: Medication Review Details: Generic Name Dose Route Start Last Admin Trade Name Freq PRN Reason Stop Dose Admin Acetazolamide 250 mg 12/30/21 12:45 12/31/21 08:21 Acetazolamide 25 0 Mg Tablet PO 250 mg DAILY ELLIE Administration Albuterol/Ipratrop ium 3 ml 12/28/21 15:50 12/31/21 14:22 Ipratropium-Albu terol 3 Ml Neb INHALATION 3 ml Q6H.RESPIRATORY S CH Administration Amiodarone HCl 200 mg 12/29/21 09:00 12/31/21 09:22 Amiodarone 200 M g Tablet PO 200 mg DAILY ELLIE Administration Amlodipine Besylat e 5 mg 12/29/21 09:00 12/31/21 08:21 Amlodipine 5 Mg Tablet PO 5 mg DAILY ELLIE Administration Aspirin 81 mg 12/29/21 06:00 12/31/21 05:59 Aspirin 81 Mg Ec Tablet PO 81 mg QAM ELLIE Administration Atorvastatin Calci um 20 mg 12/29/21 09:00 12/31/21 08:21 Atorvastatin 40 Mg Tablet PO 20 mg DAILY ELLIE Administration Budesonide 0.5 mg 12/28/21 15:46 12/31/21 08:31 Budesonide 0.5 M g/2 Ml Neb INHALATION 0.5 mg BID.RESPIRATORY S CH Administration Ferrous Gluconate 324 mg 12/28/21 18:00 12/31/21 08:21 Ferrous Gluconat e 324 Mg Tablet PO 324 mg BIDWM ELLIE Administration Furosemide 40 mg 12/31/21 11:30 12/31/21 12:05 Furosemide 10 Mg /Ml Sdv 4ml IVP 40 mg Q12H ELLIE Administration Heparin Sodium (Po rcine) 5,000 unit 12/28/21 18:22 12/31/21 09:29 Heparin 5,000 Un it/Ml Inj 1 Ml SUBCUT 5,000 unit Q8H ELLIE Administration Piperacillin Sod/T azobactam 50 mls @ 12.5 mls /hr 12/28/21 19:30 12/31/21 16:23 Sod 3.375 gm/ So dium Chloride IV Infused Q8H ELLIE Infusion Insulin Glargine 15 unit 12/28/21 21:00 12/30/21 21:49 Insulin Glargine 100 Units/1 Ml SUBCUT 15 unit BEDTIME ELLIE Administration Insulin Human Lisp ro 0 unit 12/28/21 18:22 12/31/21 12:54 Insulin Lispro 1 00 Unit/1 Ml SUBCUT 10 unit WM&BEDTIME ELLIE Administration Protocol Methimazole 2.5 mg 12/29/21 06:00 12/31/21 06:00 Methimazole 5 Mg Tablet PO 2.5 mg QAM ELLIE Administration Methylprednisolone Sodium Succinate 40 mg 12/30/21 21:00 12/31/21 08:22 Methylprednisolo ne Sod Succ 40 Mg/ Ml Inj IVP 40 mg BID@0900,2100 ELLIE Administration Metoprolol Tartrat e 25 mg 12/28/21 21:00 12/31/21 08:22 Metoprolol Tartr ate 25 Mg Tablet PO 25 mg BID@0900,2100 ELLIE Administration Pantoprazole Sodiu m 40 mg 12/29/21 06:00 12/31/21 05:[address] 40 Mg Tablet PO 40 mg QAM ELLIE Administration Senna 17.2 mg 12/28/21 21:00 12/30/21 21:49 Sennosides 8.6 M g Tablet PO 17.2 mg BEDTIME ELLIE Administration Vitals/I&O/Wt Last Vital Signs Temp 98.1 F 01/01/22 15:57 Pulse 73 01/01/22 15:57 Resp 18 01/01/22 15:57 BP 134/87 01/01/22 15:57 Pulse Ox 94 01/01/22 15:57 01/01/22 01/01/22 01/01/22 06:59 14:59 22:59 Intake Total 100 / 870 1080 / 1080 Output Total 500 / 3900 Balance -400 / -3030 1080 / 1080 Weight last 48 hrs Weight 96.842 kg Weight 98.033 kg Physical Exam Const: COMMON NORMALS: patient oriented x3 HENMT: COMMON NORMALS: normocephalic and atraumatic HEAD & SCALP: normocephalic and atraumatic Eye: COMMON NORMALS: no scleral icterus GENERAL EYE: appearance normal, both eyes and all related structures Chest: COMMONS NORMALS: normal inspection of the chest and normal palpation of entire chest wall CHEST: Yes Symmetrical chest wall rise Resp: COMMON NORMALS: normal respiratory effort, No retractions and No use of accessory muscles EFFORT & INSPECTION: Yes symmetric chest movement OTHER: Minimal Expiratory wheezing present in both lungs [place] , diminished air entr b/l, Use of accessory muscles of respiration. Cardio: COMMON NORMALS: regular rate, regular rhythm, S1 normal heart sound present, S2 normal heart sound present, No gallops present (Cardio), No murmurs present (Cardio), No rub (Cardio) and Peripheral pulses 2+ throughout RATE: regular rate RHYTHM: regular rhythm HEART SOUNDS: S1 normal heart sound present and S2 normal heart sound present PERIPHERAL PULSES: Peripheral pulses 2+ throughout GI: COMMON NORMALS: Normal to inspection, nondistended, normoactive bowel sounds present, Soft to palpation, non-tender, No hepatosplenomegaly present and no masses AUSCULTATION: Yes normoactive bowel sounds PALPATION: Yes Soft to palpation and Yes No hepatosplenomegaly present RECTAL EXAM: Yes deferred : COMMON NORMALS: Yes no CVA tenderness BLADDER/KIDNEY EXAM: Yes no CVA tenderness Back/Pelvis: COMMON NORMALS: no CVA tenderness Extremity: NARRATIVE EXTREMITY EXAM: 3+ B/L Pitting edema in both lower extremity Neuro: COMMON NORMALS: patient oriented x3 Urinary Catheter Management: Matias: Cath Placed During This Visit: yes Reason for Continuing Indwelling Catheter: Acute Urinary Retention or Obstruction Urinary Catheter Date of Insertion: 12/28/21 Urinary Catheter Time of Insertion: 16:47 Data : 01/01/22 03:34 01/01/22 03:34 Micro: Microbiology 12/31/21 18:30 Gram Stain - Final Sputum - Expectorated Sputum A&P Assessment and plan (1) Acute on chronic respiratory failure with hypoxia and hypercapnia: Status: Acute (2) Atrial fibrillation: Status: Acute (3) CAD (coronary artery disease): Status: Chronic (4) Hypertension: Status: Chronic Qualifiers: Hypertension type: primary hypertension Qualified Code(s): I10 - Essential (primary) hypertension (5) Hyperthyroidism: Status: Chronic (6) Diabetes mellitus, type II: Status: Chronic (7) COPD (chronic obstructive pulmonary disease): Status: Chronic Qualifiers: COPD type: COPD with acute exacerbation Qualified Code(s): J44.1 - Chronic obstructive pulmonary disease with (acute) exacerbation (8) CHF (congestive heart failure): Status: Chronic (9) Uses bilevel positive airway pressure (BPAP) ventilation at home: Status: Chronic (10) On home oxygen therapy: Status: Chronic Plan 66 year old male with a past medical history of advanced COPD, on home O2, home BiPAP, diastolic heart failure, atrial fibrillation, CAD, sleep apnea, insulin- dependent type 2 diabetes mellitus, hypertension, history of Covid infection, history of GI bleed not on anticoagulation has had recurrent hospitalizations in the last 4 months for SOB 2/2 COPD and CHF exacerbation, intubated on last admission, who presents to ER from home for increased swelling in his arms and found to in hypoxic and hypercapniec respiratory faliure. Assessment: # Acute on chronic hypoxic hypercapnic respiratory failure: Secondary to , decompensated heart failure with preserved ejection fraction , pneumonia, COPD exacerbation. X-ray chest has shown: Bilateral pleural effusion, pulmonary vascular congestion, Worsening bibasilar infiltrates and atelectasis. CT angio chest PE protcl: No P.E , Bibasilar atelectasis.? Superimposed pneum onia in the right lower lobe cannot be excluded. Has bilateral lower extremity 3+ pitting edema, worsening shortness of breath. proBNP: Mildly elevated Echocardiogram done in November 2021 shows a normal EF with grade 1 diastolic dysfunction with a normal RVSP. Procalcitonin: Normal MRSA PCR negative Urine Legionella antigen: Negative Bacterial antigen panel: Negative Blood culture:NTD DuoNebs every 6 hour, budesonide twice daily. Solu-Medrol 40 mg IV twice daily Lasix 40 mg IV twice daily Acetazolamide to 250 mg p.o. daily Continue Zosyn Vancomycin and levofloxacin has been discontinued Intake output charting Daily weight K>4, MG > 2 Fluid restriction 1500 cc Continue BiPAP #Decompensated HFpEF : Plan as above #COPD exacerbation: Plan as above # Atrial fibrillation: Currently rate controlled Continue amiodarone and metoprolol Continue telemetry monitoring #Hyperthyroidism: Methimazole #DM2 : Continue Lantus, SSI Monitor fingerstick glucose CODE STATUS: Full code. Lovenox for DVT prophylaxis. Protonix for PUD prophylaxis. Carb consistent mechanical soft diet. #Disposition: Patient will need placement to SNF Attestations Medical Necessity Statement*: Patient is still in hospital for management of respiratory failure. Time Spent in Patient Care: Greater than 35 minutes (>than 50% of time spent in counselling and/or direct pt care on unit) . 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
[2022-01-01 20:06] LABS: Glucose Point of Care 246 mg/dL (70-110)
[2022-01-01] MEDS: insulin glargine 100 units/1 mL 15 UNIT SUBCUT (20:18)
[2022-01-01] MEDS: sennosides 8.6 mg Tablet 17.2 MG PO (20:19)
[2022-01-02] VITALS (16 sets, daily range): BP systolic 137–189; BP diastolic 74–87; PULSE 55–130; RESP 16–23; TEMP 36.4–36.8; O2SAT 89–98
[2022-01-02] MEDS: FUROsemide 10 mg/mL SDV 4mL 40 MG IVP ×3 (00:16→23:32)
[2022-01-02] MEDS: ipratropium-albuterol 3 mL Neb INHALATION ×4 (02:38→20:49)
[2022-01-02] MEDS: piperacillin-tazobactam 3.375 GM in sodium chloride 0.9% (plus) 50 ML IV ×3 (03:59→20:03)
[2022-01-02] MEDS: aspirin 81 mg EC Tablet PO (05:59)
[2022-01-02] MEDS: pantoprazole DR 40 mg Tablet PO (05:59)
[2022-01-02] MEDS: methIMAzole 5 MG Tablet 2.5 MG PO (05:59)
[2022-01-02] MEDS: insulin lispro 100 unit/1 mL SUBCUT ×4 (08:30→20:50)
[2022-01-02] MEDS: atorvastatin 40 mg Tablet 20 MG PO (08:44)
[2022-01-02] MEDS: acetaZOLAMIDE 250 mg Tablet PO (08:44)
[2022-01-02] MEDS: amlodipine 5 mg Tablet PO (08:45)
[2022-01-02] MEDS: enoxaparin 40 mg/0.4 mL Syringe SUBCUT (08:45)
[2022-01-02] MEDS: amiodarone 200 mg Tablet PO (08:45)
[2022-01-02] MEDS: metoprolol tartrate 25 mg Tablet PO ×2 (08:46→20:49)
[2022-01-02] MEDS: budesonide 0.5 mg/2 mL Neb INHALATION ×2 (08:49→20:49)
--- NOTE | 2022-01-02 09:57 | PM.PN ---
Subjective Subjective: Patient was seen and examined this morning, Medications: Medication Review Details: Generic Name Dose Route Start Last Admin Trade Name Katia PRN Reason Stop Dose Admin Acetazolamide 250 mg 12/30/21 12:45 12/31/21 08:21 Acetazolamide 25 0 Mg Tablet PO 250 mg DAILY ELLIE Administration Albuterol/Ipratrop ium 3 ml 12/28/21 15:50 12/31/21 14:22 Ipratropium-Albu terol 3 Ml Neb INHALATION 3 ml Q6H.RESPIRATORY S CH Administration Amiodarone HCl 200 mg 12/29/21 09:00 12/31/21 09:22 Amiodarone 200 M g Tablet PO 200 mg DAILY ELLIE Administration Amlodipine Besylat e 5 mg 12/29/21 09:00 12/31/21 08:21 Amlodipine 5 Mg Tablet PO 5 mg DAILY ELLIE Administration Aspirin 81 mg 12/29/21 06:00 12/31/21 05:59 Aspirin 81 Mg Ec Tablet PO 81 mg QAM ELLIE Administration Atorvastatin Calci um 20 mg 12/29/21 09:00 12/31/21 08:21 Atorvastatin 40 Mg Tablet PO 20 mg DAILY ELLIE Administration Budesonide 0.5 mg 12/28/21 15:46 12/31/21 08:31 Budesonide 0.5 M g/2 Ml Neb INHALATION 0.5 mg BID.RESPIRATORY S CH Administration Ferrous Gluconate 324 mg 12/28/21 18:00 12/31/21 08:21 Ferrous Gluconat e 324 Mg Tablet PO 324 mg BIDWM ELLIE Administration Furosemide 40 mg 12/31/21 11:30 12/31/21 12:05 Furosemide 10 Mg /Ml Sdv 4ml IVP 40 mg Q12H ELLIE Administration Heparin Sodium (Po rcine) 5,000 unit 12/28/21 18:22 12/31/21 09:29 Heparin 5,000 Un it/Ml Inj 1 Ml SUBCUT 5,000 unit Q8H ELLIE Administration Piperacillin Sod/T azobactam 50 mls @ 12.5 mls /hr 12/28/21 19:30 12/31/21 16:23 Sod 3.375 gm/ So dium Chloride IV Infused Q8H ELLIE Infusion Insulin Glargine 15 unit 12/28/21 21:00 12/30/21 21:49 Insulin Glargine 100 Units/1 Ml SUBCUT 15 unit BEDTIME ELLIE Administration Insulin Human Lisp ro 0 unit 12/28/21 18:22 12/31/21 12:54 Insulin Lispro 1 00 Unit/1 Ml SUBCUT 10 unit WM&BEDTIME ELLIE Administration Protocol Methimazole 2.5 mg 12/29/21 06:00 12/31/21 06:00 Methimazole 5 Mg Tablet PO 2.5 mg QAM ELLIE Administration Methylprednisolone Sodium Succinate 40 mg 12/30/21 21:00 12/31/21 08:22 Methylprednisolo ne Sod Succ 40 Mg/ Ml Inj IVP 40 mg BID@0900,2099 ELLIE Administration Metoprolol Tartrat e 25 mg 12/28/21 21:00 12/31/21 08:22 Metoprolol Tartr ate 25 Mg Tablet PO 25 mg BID@0900,2100 ELLIE Administration Pantoprazole Sodiu m 40 mg 12/29/21 06:00 12/31/21 05:[address] 40 Mg Tablet PO 40 mg QAM ELLIE Administration Senna 17.2 mg 12/28/21 21:00 12/30/21 21:49 Sennosides 8.6 M g Tablet PO 17.2 mg BEDTIME ELLIE Administration Vitals/I&O/Wt Last Vital Signs Temp 97.6 F 01/02/22 08:00 Pulse 66 01/02/22 08:57 Resp 16 01/02/22 08:57 BP 156/79 01/02/22 08:00 Pulse Ox 95 01/02/22 08:57 01/01/22 01/02/22 01/02/22 22:59 06:59 14:59 Intake Total 50 / 1180 Output Total 700 / 2500 1575 / 4075 Balance -700 / -1370 -1525 / -2895 Weight last 48 hrs Weight 98.611 kg Weight 96.842 kg Weight 98.033 kg Physical Exam Const: COMMON NORMALS: patient oriented x3 HENMT: COMMON NORMALS: normocephalic and atraumatic HEAD & SCALP: normocephalic and atraumatic Resp: OTHER: Diminished air entr b/l, Cardio: COMMON NORMALS: regular rate, regular rhythm, S1 normal heart sound present, S2 normal heart sound present, No gallops present (Cardio), No murmurs present (Cardio), No rub (Cardio) and Peripheral pulses 2+ throughout RATE: regular rate RHYTHM: regular rhythm HEART SOUNDS: S1 normal heart sound present and S2 normal heart sound present PERIPHERAL PULSES: Peripheral pulses 2+ throughout GI: COMMON NORMALS: Normal to inspection, nondistended, normoactive bowel sounds present, Soft to palpation, non-tender, No hepatosplenomegaly present and no masses AUSCULTATION: Yes normoactive bowel sounds PALPATION: Yes Soft to palpation and Yes No hepatosplenomegaly present RECTAL EXAM: Yes deferred Extremity: NARRATIVE EXTREMITY EXAM: 3+ B/L Pitting edema in both lower extremity Bilateral upper extremity swelling right greater than left Neuro: COMMON NORMALS: patient oriented x3 Urinary Catheter Management: Matias: Cath Placed During This Visit: yes Reason for Continuing Indwelling Catheter: Acute Urinary Retention or Obstruction Urinary Catheter Date of Insertion: 12/28/21 Urinary Catheter Time of Insertion: 16:47 Data : 01/02/22 15:00 01/01/22 03:34 Micro: Microbiology 12/31/21 18:30 Gram Stain - Final Sputum - Expectorated Sputum A&P Assessment and plan (1) Acute on chronic respiratory failure with hypoxia and hypercapnia: Status: Acute (2) Atrial fibrillation: Status: Acute (3) CAD (coronary artery disease): Status: Chronic (4) Hypertension: Status: Chronic Qualifiers: Hypertension type: primary hypertension Qualified Code(s): I10 - Essential (primary) hypertension (5) Hyperthyroidism: Status: Chronic (6) Diabetes mellitus, type II: Status: Chronic (7) COPD (chronic obstructive pulmonary disease): Status: Chronic Qualifiers: COPD type: COPD with acute exacerbation Qualified Code(s): J44.1 - Chronic obstructive pulmonary disease with (acute) exacerbation (8) CHF (congestive heart failure): Status: Chronic (9) Uses bilevel positive airway pressure (BPAP) ventilation at home: Status: Chronic (10) On home oxygen therapy: Status: Chronic Plan 66 year old male with a past medical history of advanced COPD, on home O2, home BiPAP, diastolic heart failure, atrial fibrillation, CAD, sleep apnea, insulin-dependent type 2 diabetes mellitus, hypertension, history of Covid infection, history of GI bleed not on anticoagulation has had recurrent hospitalizations in the last 4 months for SOB 2/2 COPD and CHF exacerbation, intubated on last admission, who presents to ER from home for increased swelling in his arms and found to in hypoxic and hypercapniec respiratory faliure. Assessment: # Acute on chronic hypoxic hypercapnic respiratory failure: Secondary to , decompensated heart failure with preserved ejection fraction , pneumonia, COPD exacerbation. X-ray chest has shown: Bilateral pleural effusion, pulmonary vascular congestion, Worsening bibasilar infiltrates and atelectasis. CT angio chest PE protcl: No P.E , Bibasilar atelectasis.? Superimposed pneumonia in the right lower lobe cannot be excluded. Has bilateral lower extremity 3+ pitting edema, worsening shortness of breath. proBNP: Mildly elevated Echocardiogram done in November 2021 shows a normal EF with grade 1 diastolic dysfunction with a normal RVSP. Procalcitonin: Normal MRSA PCR negative Urine Legionella antigen: Negative Bacterial antigen panel: Negative Blood culture:NTD DuoNebs every 6 hour, budesonide twice daily. Solu-Medrol 60 mg IV daily Lasix 40 mg IV twice daily Acetazolamide to 250 mg p.o. daily Continue Zosyn Vancomycin and levofloxacin has been discontinued Intake output charting Daily weight K>4, MG > 2 Fluid restriction 1500 cc Continue BiPAP #Decompensated HFpEF : Plan as above #COPD exacerbation: Plan as above # Atrial fibrillation: Currently rate controlled Continue amiodarone and metoprolol Continue telemetry monitoring #Hyperthyroidism: Methimazole #Rt upper extremity swelling : Follow right upper extremity Doppler vein #DM2 : Continue Lantus, SSI Monitor fingerstick glucose CODE STATUS: Full code. Lovenox for DVT prophylaxis. Protonix for PUD prophylaxis. Carb consistent mechanical soft diet. #Disposition: Patient will need placement to SNF Attestations Medical Necessity Statement*: Patient is still in hospital for management of respiratory failure. 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
--- NOTE | 2022-01-02 10:37 | USCV_ITS ---
Nagi Cuellar Age: 66 Gender: M : 1955 Exam Date: 01/02/2022 11:32 Ordering Phys: Marcos Rubin MD Technologist: Amy Reyna Exam Location: [facility] [place] Indication: Rt arm swelling HISTORY: Rt arm swelling PROCEDURES: Venous duplex imaging was performed in only the right upper extremity. The following venous structures were evaluated: internal jugular vein, subclavian vein, axillary vein, and brachial veins. In addition, the basilic vein, cephalic vein, radial vein, and ulnar vein. Serial compression, augmentation maneuvers, and spectral Doppler flow evaluation were performed. FINDINGS: Normal 2-D, color Doppler and phasicity noted in the bilateral upper extremity venous system extending from the internal jugular veins through the main forearms. No thrombosis or occlusion noted. The veins were found to be easily compressible with spontaneous blood flow. Non pulsatile flow pattern. CONCLUSIONS No evidence of venous thrombus in the above-mentioned identifiable veins. Dr Dannielle Butler MD FACC (Electronically Signed) Final Date: 02 January 2022 21:29 S
[2022-01-02 12:42] LABS: Glucose Point of Care 261 mg/dL (70-110)
[2022-01-02 12:42] LABS: Glucose Point of Care 346 mg/dL (70-110)
[2022-01-02 12:42] LABS: Glucose Point of Care 385 mg/dL (70-110)
[2022-01-02 15:08] LABS: Basophils % 0.1 %; Eosinophils % 0.1 %; Hematocrit 40.5 % (42.0-52.0); Hemoglobin 13.4 g/dL (11.7-16.6); Lymphocytes # 0.2 10^3/uL (0.8-4.8); Lymphocytes % 1.5 %; Mean Corpuscular HGB Conc 33.1 g/dL (30.0-36.0); Mean Corpuscular Hemoglobin 29.3 pg (28.0-34.0); Mean Corpuscular Volume 88.4 fl (80-94); Mean Platelet Volume 10.3 fL (7.4-10.4); Monocytes # 0.4 10^3/uL (0.2-0.9); Neutrophils # 11.21 10^3/uL (1.8-7.7); Neutrophils % 93.9 %; Nucleated Red Blood Cells % 0.2 %; Platelet Count 223 10^3/cmm (130-400); Red Blood Count 4.58 10^6/uL (4.1-5.3); Red Cell Distribution Width 17.3 % (12.1-15.1); White Blood Count 11.9 10^3/uL (4.0-10.0)
[2022-01-02 17:16] LABS: Glucose Point of Care 181 mg/dL (70-110)
[2022-01-02 19:20] LABS: Blood Urea Nitrogen 40 mg/dL (8-23); Calcium 8.9 mg/dL (8.5-10.5); Carbon Dioxide 31 mmol/L (22-29); Chloride 93 mmol/L (98-107); Glucose 256 mg/dL (65-115); Osmolality Calculated 297 mOsm/kg (285-295); Sodium 134 mmol/L (136-145)
[2022-01-02 19:25] LABS: Anion Gap 13.8 (5-19); Potassium 3.8 mmol/L (3.5-5.1)
[2022-01-02 20:21] LABS: Glucose Point of Care 355 mg/dL (70-110)
[2022-01-02] MEDS: insulin glargine 100 units/1 mL 15 UNIT SUBCUT (20:49)
[2022-01-02] MEDS: sennosides 8.6 mg Tablet 17.2 MG PO (20:49)
[2022-01-03] VITALS (16 sets, daily range): BP systolic 124–165; BP diastolic 70–88; PULSE 52–78; RESP 17–20; TEMP 36.4–36.9; O2SAT 91–98
[2022-01-03] MEDS: ipratropium-albuterol 3 mL Neb INHALATION ×4 (02:28→20:41)
[2022-01-03] MEDS: piperacillin-tazobactam 3.375 GM in sodium chloride 0.9% (plus) 50 ML IV ×2 (03:53→10:38)
[2022-01-03 04:42] LABS: Basophils % 0.1 %; Hematocrit 37.3 % (42.0-52.0); Hemoglobin 12.2 g/dL (11.7-16.6); Lymphocytes # 0.3 10^3/uL (0.8-4.8); Lymphocytes % 2.8 %; Mean Corpuscular HGB Conc 32.7 g/dL (30.0-36.0); Mean Corpuscular Hemoglobin 28.9 pg (28.0-34.0); Mean Corpuscular Volume 88.4 fl (80-94); Mean Platelet Volume 10.9 fL (7.4-10.4); Monocytes # 0.6 10^3/uL (0.2-0.9); Monocytes % 5.7 %; Neutrophils # 9.19 10^3/uL (1.8-7.7); Neutrophils % 90.3 %; Nucleated Red Blood Cells % 0 %; Platelet Count 241 10^3/cmm (130-400); Red Blood Count 4.22 10^6/uL (4.1-5.3); Red Cell Distribution Width 17.1 % (12.1-15.1); White Blood Count 10.2 10^3/uL (4.0-10.0)
[2022-01-03 04:58] LABS: Anion Gap 13.6 (5-19); Blood Urea Nitrogen 39 mg/dL (8-23); Carbon Dioxide 33 mmol/L (22-29); Chloride 95 mmol/L (98-107); Glomerular Filtration Rate 75.2 mL/min (90-130); Glucose 235 mg/dL (65-115); Magnesium 1.9 mg/dL (1.7-2.3); Osmolality Calculated 303 mOsm/kg (285-295); Potassium 3.6 mmol/L (3.5-5.1); Sodium 138 mmol/L (136-145)
[2022-01-03] MEDS: pantoprazole DR 40 mg Tablet PO (05:11)
[2022-01-03] MEDS: aspirin 81 mg EC Tablet PO (05:11)
[2022-01-03] MEDS: methIMAzole 5 MG Tablet 2.5 MG PO (05:11)
--- NOTE | 2022-01-03 07:00 | XRR_ITS ---
PROCEDURE INFORMATION: Exam: XR Chest Exam date and time: 01/03/2022 7:00 AM Age: 66 years old Clinical indication: Cough and shortness of breath; Additional info: SOB TECHNIQUE: Imaging protocol: XR of the chest. Views: 1 view. COMPARISON: CR XR chest 1V portable [id number] 12/31/2021 8:58 AM FINDINGS: Lungs: Slightly improved haziness of the lungs and small bilateral pleural effusions, suggestive of resolving pulmonary edema. Pneumonia should be excluded clinically. No pneumothorax. Pleural spaces: See Lungs finding. Heart/Mediastinum: Stable cardiomediastinal silhouette. Bones/joints: Degenerative changes of the spine seen. XR/XR chest 1V portable [id number] IMPRESSION: Imaging findings suggestive of resolving pulmonary edema with small bilateral pleural effusions. Pneumonia should be excluded clinically.
[2022-01-03] MEDS: budesonide 0.5 mg/2 mL Neb INHALATION ×2 (08:07→20:41)
[2022-01-03] MEDS: enoxaparin 40 mg/0.4 mL Syringe SUBCUT (08:52)
[2022-01-03] MEDS: insulin lispro 100 unit/1 mL SUBCUT ×4 (08:52→20:54)
[2022-01-03] MEDS: acetaZOLAMIDE 250 mg Tablet PO (08:52)
[2022-01-03] MEDS: atorvastatin 40 mg Tablet 20 MG PO (08:52)
[2022-01-03] MEDS: metoprolol tartrate 25 mg Tablet PO (08:53)
[2022-01-03] MEDS: amlodipine 5 mg Tablet PO (08:53)
[2022-01-03] MEDS: amiodarone 200 mg Tablet PO (08:53)
[2022-01-03] MEDS: FUROsemide 10 mg/mL SDV 4mL 40 MG IVP (08:53)
--- NOTE | 2022-01-03 09:42 | PM.PN ---
Subjective Subjective: Patient was seen and examined this morning, B/L lower extremity swelling has improved significantly, A.m. chest x-ray done today: Has shown improvement in pulmonary vascular congestion, as well as improvement in bilateral pleural effusion, shortness of breath is better. Patient was complaining about not getting his breakfast on time. Will cut back on Lasix, as BUN is slowly trending up. Medications: Medication Review Details: Generic Name Dose Route Start Last Admin Trade Name Freq PRN Reason Stop Dose Admin Acetazolamide 250 mg 12/30/21 12:45 12/31/21 08:21 Acetazolamide 25 0 Mg Tablet PO 250 mg DAILY ELLIE Administration Albuterol/Ipratrop ium 3 ml 12/28/21 15:50 12/31/21 14:22 Ipratropium-Albu terol 3 Ml Neb INHALATION 3 ml Q6H.RESPIRATORY S CH Administration Amiodarone HCl 200 mg 12/29/21 09:00 12/31/21 09:22 Amiodarone 200 M g Tablet PO 200 mg DAILY ELLIE Administration Amlodipine Besylat e 5 mg 12/29/21 09:00 12/31/21 08:21 Amlodipine 5 Mg Tablet PO 5 mg DAILY ELLIE Administration Aspirin 81 mg 12/29/21 06:00 12/31/21 05:59 Aspirin 81 Mg Ec Tablet PO 81 mg QAM ELLIE Administration Atorvastatin Calci um 20 mg 12/29/21 09:00 12/31/21 08:21 Atorvastatin 40 Mg Tablet PO 20 mg DAILY ELLIE Administration Budesonide 0.5 mg 12/28/21 15:46 12/31/21 08:31 Budesonide 0.5 M g/2 Ml Neb INHALATION 0.5 mg BID.RESPIRATORY S CH Administration Ferrous Gluconate 324 mg 12/28/21 18:00 12/31/21 08:21 Ferrous Gluconat e 324 Mg Tablet PO 324 mg BIDWM ELLIE Administration Furosemide 40 mg 12/31/21 11:30 12/31/21 12:05 Furosemide 10 Mg /Ml Sdv 4ml IVP 40 mg Q12H ELLIE Administration Heparin Sodium (Po rcine) 5,000 unit 12/28/21 18:22 12/31/21 09:29 Heparin 5,000 Un it/Ml Inj 1 Ml SUBCUT 5,000 unit Q8H ELLIE Administration Piperacillin Sod/T azobactam 50 mls @ 12.5 mls /hr 12/28/21 19:30 12/31/21 16:23 Sod 3.375 gm/ So dium Chloride IV Infused Q8H ELLIE Infusion Insulin Glargine 15 unit 12/28/21 21:00 12/30/21 21:49 Insulin Glargine 100 Units/1 Ml SUBCUT 15 unit BEDTIME ELLIE Administration Insulin Human Lisp ro 0 unit 12/28/21 18:22 12/31/21 12:54 Insulin Lispro 1 00 Unit/1 Ml SUBCUT 10 unit WM&BEDTIME ELLIE Administration Protocol Methimazole 2.5 mg 12/29/21 06:00 12/31/21 06:00 Methimazole 5 Mg Tablet PO 2.5 mg QAM ELLIE Administration Methylprednisolone Sodium Succinate 40 mg 12/30/21 21:00 12/31/21 08:22 Methylprednisolo ne Sod Succ 40 Mg/ Ml Inj IVP 40 mg BID@0900,2100 ELLIE Administration Metoprolol Tartrat e 25 mg 12/28/21 21:00 12/31/21 08:22 Metoprolol Tartr ate 25 Mg Tablet PO 25 mg BID@0900,2100 ELLIE Administration Pantoprazole Sodiu m 40 mg 12/29/21 06:00 12/31/21 05:[address] 40 Mg Tablet PO 40 mg QAM ELLIE Administration Senna 17.2 mg 12/28/21 21:00 12/30/21 21:49 Sennosides 8.6 M g Tablet PO 17.2 mg BEDTIME ELLIE Administration Vitals/I&O/Wt Last Vital Signs Temp 97.9 F 01/03/22 07:41 Pulse 56 L 01/03/22 08:16 Resp 18 01/03/22 08:07 BP 150/79 01/03/22 07:41 Pulse Ox 96 01/03/22 08:07 01/02/22 01/03/22 01/03/22 22:59 06:59 14:59 Intake Total 50 / 990 Output Total 3300 / 3300 2450 / 5750 Balance -3300 / -2360 -2400 / -4760 Weight last 48 hrs Weight 87.271 kg Weight 98.611 kg Physical Exam Const: COMMON NORMALS: patient oriented x3 HENMT: COMMON NORMALS: normocephalic and atraumatic HEAD & SCALP: normocephalic and atraumatic Eye: COMMON NORMALS: no scleral icterus GENERAL EYE: appearance normal, both eyes and all related structures Chest: COMMONS NORMALS: normal inspection of the chest and normal palpation of entire chest wall CHEST: Yes Symmetrical chest wall rise Resp: EFFORT & INSPECTION: Yes symmetric chest movement OTHER: Diminished air entr b/l, Cardio: COMMON NORMALS: regular rate, regular rhythm, S1 normal heart sound present, S2 normal heart sound present, No gallops present (Cardio), No murmurs present (Cardio), No rub (Cardio) and Peripheral pulses 2+ throughout RATE: regular rate RHYTHM: regular rhythm HEART SOUNDS: S1 normal heart sound present and S2 normal heart sound present PERIPHERAL PULSES: Peripheral pulses 2+ throughout GI: COMMON NORMALS: Normal to inspection, nondistended, normoactive bowel sounds present, Soft to palpation, non-tender, No hepatosplenomegaly present and no masses AUSCULTATION: Yes normoactive bowel sounds PALPATION: Yes Soft to palpation and Yes No hepatosplenomegaly present RECTAL EXAM: Yes deferred Extremity: NARRATIVE EXTREMITY EXAM: 3+ B/L Pitting edema in both lower extremity Bilateral upper extremity swelling right greater than left Neuro: COMMON NORMALS: patient oriented x3 Urinary Catheter Management: Matias: Cath Placed During This Visit: yes Reason for Continuing Indwelling Catheter: Other Urinary Catheter Date of Insertion: 12/28/21 Urinary Catheter Time of Insertion: 16:47 Data : 01/03/22 02:57 01/03/22 02:57 Micro: Microbiology 12/31/21 18:30 Gram Stain - Final Sputum - Expectorated Sputum Sputum Culture - Final 12/28/21 13:10 Blood Culture - Final Blood NO GROWTH AFTER 5 DAYS 12/28/21 13:28 Blood Culture - Final Blood NO GROWTH AFTER 5 DAYS A&P Assessment and plan (1) Acute on chronic respiratory failure with hypoxia and hypercapnia: Status: Acute (2) Atrial fibrillation: Status: Acute (3) CAD (coronary artery disease): Status: Chronic (4) Hypertension: Status: Chronic Qualifiers: Hypertension type: primary hypertension Qualified Code(s): I10 - Essential (primary) hypertension (5) Hyperthyroidism: Status: Chronic (6) Diabetes mellitus, type II: Status: Chronic (7) COPD (chronic obstructive pulmonary disease): Status: Chronic Qualifiers: COPD type: COPD with acute exacerbation Qualified Code(s): J44.1 - Chronic obstructive pulmonary disease with (acute) exacerbation (8) CHF (congestive heart failure): Status: Chronic (9) Uses bilevel positive airway pressure (BPAP) ventilation at home: Status: Chronic (10) On home oxygen therapy: Status: Chronic Plan 66 year old male with a past medical history of advanced COPD, on home O2, home BiPAP, diastolic heart failure, atrial fibrillation, CAD, sleep apnea, insulin-dependent type 2 diabetes mellitus, hypertension, history of Covid infection, history of GI bleed not on anticoagulation has had recurrent hospitalizations in the last 4 months for SOB 2/2 COPD and CHF exacerbation, intubated on last admission, who presents to ER from home for increased swelling in his arms and found to in hypoxic and hypercapniec respiratory faliure. Assessment: # Acute on chronic hypoxic hypercapnic respiratory failure: Secondary to , decompensated heart failure with preserved ejection fraction , pneumonia, COPD exacerbation. X-ray chest has shown: Bilateral pleural effusion, pulmonary vascular congestion, Worsening bibasilar infiltrates and atelectasis. CT angio chest PE protcl: No P.E , Bibasilar atelectasis.? Superimposed pneumonia in the right lower lobe cannot be excluded. Has bilateral lower extremity 3+ pitting edema, worsening shortness of breath. proBNP: Mildly elevated Echocardiogram done in November 2021 shows a normal EF with grade 1 diastolic dysfunction with a normal RVSP. Procalcitonin: Normal MRSA PCR negative Urine Legionella antigen: Negative Bacterial antigen panel: Negative Blood culture:NTD DuoNebs every 6 hour, budesonide twice daily. Solu-Medrol 40 mg IV daily Lasix 40 mg IV daily Acetazolamide to 250 mg p.o. daily Was on Zosyn. Will de-escalate antibiotic to cef Vancomycin and levofloxacin has been discontinued Intake output charting Daily weight K>4, MG > 2 Fluid restriction 1500 cc Continue BiPAP #Decompensated HFpEF : Plan as above #COPD exacerbation: Plan as above # Atrial fibrillation: Currently rate controlled Continue amiodarone and metoprolol Continue telemetry monitoring #Hyperthyroidism: Methimazole #Rt upper extremity swelling : Rt upper extremity Doppler vein:Negative #DM2 : Continue Lantus, MDSSI Monitor fingerstick glucose CODE STATUS: Full code. Lovenox for DVT prophylaxis. Protonix for PUD prophylaxis. Carb consistent mechanical soft diet. #Disposition: Patient will need placement to SNF Attestations Medical Necessity Statement*: Patient is still in hospital for management of respiratory failure. Time Spent in Patient Care: Greater than 35 minutes (>than 50% of time spent in counselling and/or direct pt care on unit). Coding Level of Care Code Acute Marketing Administrative Assistant for g Fwd Exam Comprehensive Diagnoses Acute on chronic respiratory failure with hypoxia and hypercapnia J96.21; J96.22 Atrial fibrillation I48.91 CAD (coronary artery disease) I25.10 Hypertension I10 Hypertension type: primary hypertension Hyperthyroidism E05.90 Diabetes mellitus, type II E11.9 COPD (chronic obstructive pulmonary disease) J44.1 COPD type: COPD with acute exacerbation CHF (congestive heart failure) I50.9 Uses bilevel positive airway pressure (BPAP) ventilation at home Z99.89 On home oxygen therapy Z99.81
[2022-01-03 13:00] LABS: Glucose Point of Care 245 mg/dL (70-110)
[2022-01-03 13:01] LABS: Glucose Point of Care 349 mg/dL (70-110)
[2022-01-03 13:01] LABS: Glucose Point of Care 208 mg/dL (70-110)
--- NOTE | 2022-01-03 15:34 | PC.OT ---
OT TREATMENT ATTEMPTED TWICE THIS P.M. 1ST ATTEMPT: PATIENT SLEEPING SOUNDLY 2ND ATTEMPT: AWAKENS BUT DECLINES PARTICIPATION STATING, I JUST DON'T FEEL GOOD TODAY. IS AGREEABLE TO ATTEMPT TOMORROW.
--- NOTE | 2022-01-03 18:39 | PC.NURSE ---
IV in right FA infiltrated. Medications stopped and iv removed. It is elevated and clear fluid is seen leaking from old site.
[2022-01-03 18:43] LABS: SARS Covid-2 Antigen Negative (Negative)
[2022-01-03 20:35] LABS: Glucose Point of Care 273 mg/dL (70-110)
[2022-01-03 20:35] LABS: Glucose Point of Care 294 mg/dL (70-110)
[2022-01-03] MEDS: insulin glargine 100 units/1 mL 15 UNIT SUBCUT (20:52)
[2022-01-04] VITALS (17 sets, daily range): BP systolic 134–177; BP diastolic 76–80; PULSE 0–70; RESP 17–19; TEMP 36.5–37.1; O2SAT 90–95
[2022-01-04] MEDS: ipratropium-albuterol 3 mL Neb INHALATION ×4 (02:53→21:06)
[2022-01-04 05:20] LABS: Basophils % 0.3 %; Eosinophils % 0.2 %; Hemoglobin 12.9 g/dL (11.7-16.6); Lymphocytes # 0.4 10^3/uL (0.8-4.8); Lymphocytes % 3.8 %; Mean Corpuscular HGB Conc 30.7 g/dL (30.0-36.0); Mean Corpuscular Hemoglobin 29.4 pg (28.0-34.0); Mean Corpuscular Volume 95.7 fl (80-94); Mean Platelet Volume 10.8 fL (7.4-10.4); Monocytes # 0.5 10^3/uL (0.2-0.9); Monocytes % 5.2 %; Neutrophils # 9.18 10^3/uL (1.8-7.7); Neutrophils % 89.1 %; Nucleated Red Blood Cells % 0 %; Platelet Count 214 10^3/cmm (130-400); Red Blood Count 4.39 10^6/uL (4.1-5.3); Red Cell Distribution Width 17.2 % (12.1-15.1); White Blood Count 10.3 10^3/uL (4.0-10.0)
[2022-01-04 05:37] LABS: Blood Urea Nitrogen 36 mg/dL (8-23); Calcium 9.1 mg/dL (8.5-10.5); Carbon Dioxide 26 mmol/L (22-29); Chloride 98 mmol/L (98-107); Glomerular Filtration Rate 113.5 mL/min (90-130); Glucose 187 mg/dL (65-115); Magnesium 2.2 mg/dL (1.7-2.3); Osmolality Calculated 289 mOsm/kg (285-295); Sodium 133 mmol/L (136-145)
[2022-01-04 05:39] LABS: Anion Gap 12.9 (5-19); Potassium 3.9 mmol/L (3.5-5.1)
[2022-01-04] MEDS: aspirin 81 mg EC Tablet PO (06:10)
[2022-01-04] MEDS: methIMAzole 5 MG Tablet 2.5 MG PO (06:10)
[2022-01-04] MEDS: pantoprazole DR 40 mg Tablet PO (06:10)
[2022-01-04] MEDS: atorvastatin 40 mg Tablet 20 MG PO (08:16)
[2022-01-04] MEDS: metoprolol tartrate 25 mg Tablet PO ×2 (08:16→20:22)
[2022-01-04] MEDS: amiodarone 200 mg Tablet PO (08:16)
[2022-01-04] MEDS: amlodipine 5 mg Tablet PO (08:17)
[2022-01-04] MEDS: FUROsemide 10 mg/mL SDV 4mL 40 MG IVP ×2 (08:17→20:22)
[2022-01-04] MEDS: enoxaparin 40 mg/0.4 mL Syringe SUBCUT (08:17)
[2022-01-04] MEDS: acetaZOLAMIDE 250 mg Tablet PO (08:17)
[2022-01-04] MEDS: budesonide 0.5 mg/2 mL Neb INHALATION ×2 (08:44→21:06)
[2022-01-04] MEDS: insulin lispro 100 unit/1 mL SUBCUT ×4 (09:00→21:56)
--- NOTE | 2022-01-04 09:16 | PC.NURSE ---
Rcvd order from Dr Rubin to discontinue isolation order
--- NOTE | 2022-01-04 10:22 | PC.NURSE ---
Rcvd verbal order from Dr Rubin for 40 Lasix IVP for this evening. Dam Tender Assistant put order in.
[2022-01-04 12:14] LABS: Glucose Point of Care 236 mg/dL (70-110)
[2022-01-04 12:14] LABS: Glucose Point of Care 155 mg/dL (70-110)
[2022-01-04] MEDS: cefTRIAXone 1,000 MG in sodium chloride 0.9% (plus) 50 ML 100 MG IV (14:15)
--- NOTE | 2022-01-04 14:39 | P.PN_ITS ---
Subjective Subjective: Patient was seen and examined this morning, continues to show daily improvement, extremity swelling is going down, working well with physical therapy. Currently he is: -15 LS Medications: Medication Review Details: Generic Name Dose Route Start Last Admin Trade Name Katia PRN Reason Stop Dose Admin Acetazolamide 250 mg 12/30/21 12:45 12/31/21 08:21 Acetazolamide 25 0 Mg Tablet PO 250 mg DAILY ELLIE Administration Albuterol/Ipratrop ium 3 ml 12/28/21 15:50 12/31/21 14:22 Ipratropium-Albu terol 3 Ml Neb INHALATION 3 ml Q6H.RESPIRATORY S CH Administration Amiodarone HCl 200 mg 12/29/21 09:00 12/31/21 09:22 Amiodarone 200 M g Tablet PO 200 mg DAILY ELLIE Administration Amlodipine Besylat e 5 mg 12/29/21 09:00 12/31/21 08:21 Amlodipine 5 Mg Tablet PO 5 mg DAILY ELLIE Administration Aspirin 81 mg 12/29/21 06:00 12/31/21 05:59 Aspirin 81 Mg Ec Tablet PO 81 mg QAM ELLIE Administration Atorvastatin Calci um 20 mg 12/29/21 09:00 12/31/21 08:21 Atorvastatin 40 Mg Tablet PO 20 mg DAILY ELLIE Administration Budesonide 0.5 mg 12/28/21 15:46 12/31/21 08:31 Budesonide 0.5 M g/2 Ml Neb INHALATION 0.5 mg BID.RESPIRATORY S CH Administration Ferrous Gluconate 324 mg 12/28/21 18:00 12/31/21 08:21 Ferrous Gluconat e 324 Mg Tablet PO 324 mg BIDWM ELLIE Administration Furosemide 40 mg 12/31/21 11:30 12/31/21 12:05 Furosemide 10 Mg /Ml Sdv 4ml IVP 40 mg Q12H ELLIE Administration Heparin Sodium (Po rcine) 5,000 unit 12/28/21 18:22 12/31/21 09:29 Heparin 5,000 Un it/Ml Inj 1 Ml SUBCUT 5,000 unit Q8H ELLIE Administration Piperacillin Sod/T azobactam 50 mls @ 12.5 mls /hr 12/28/21 19:30 12/31/21 16:23 Sod 3.375 gm/ So dium Chloride IV Infused Q8H ELLIE Infusion Insulin Glargine 15 unit 12/28/21 21:00 12/30/21 21:49 Insulin Glargine 100 Units/1 Ml SUBCUT 15 unit BEDTIME ELLIE Administration Insulin Human Lisp ro 0 unit 12/28/21 18:22 12/31/21 12:54 Insulin Lispro 1 00 Unit/1 Ml SUBCUT 10 unit WM&BEDTIME ELLIE Administration Protocol Methimazole 2.5 mg 12/29/21 06:00 12/31/21 06:00 Methimazole 5 Mg Tablet PO 2.5 mg QAM ELLIE Administration Methylprednisolone Sodium Succinate 40 mg 12/30/21 21:00 12/31/21 08:22 Methylprednisolo ne Sod Succ 40 Mg/ Ml Inj IVP 40 mg BID@0900,2100 ELLIE Administration Metoprolol Tartrat e 25 mg 12/28/21 21:00 12/31/21 08:22 Metoprolol Tartr ate 25 Mg Tablet PO 25 mg BID@0900,2100 ELLIE Administration Pantoprazole Sodiu m 40 mg 12/29/21 06:00 12/31/21 05:[address] 40 Mg Tablet PO 40 mg QAM ELLIE Administration Senna 17.2 mg 12/28/21 21:00 12/30/21 21:49 Sennosides 8.6 M g Tablet PO 17.2 mg BEDTIME ELLIE Administration Vitals/I&O/Wt Last Vital Signs Temp 98.7 F 01/04/22 11:22 Pulse 60 01/04/22 14:00 Resp 17 01/04/22 11:22 BP 177/76 01/04/22 11:22 Pulse Ox 92 01/04/22 11:22 01/03/22 01/04/22 01/04/22 22:59 06:59 14:59 Intake Total 530 / 1540 1090 / 2630 960 / 960 Output Total 4600 / 4600 1250 / 5850 300 / 300 Balance -4070 / -3060 -160 / -3220 660 / 660 Weight last 48 hrs Weight 96.298 kg Weight 87.271 kg Physical Exam Const: COMMON NORMALS: patient oriented x3 HENMT: COMMON NORMALS: normocephalic and atraumatic HEAD & SCALP: normocephalic and atraumatic Eye: COMMON NORMALS: no scleral icterus GENERAL EYE: appearance normal, both eyes and all related structures Chest: COMMONS NORMALS: normal inspection of the chest and normal palpation of entire chest wall CHEST: Yes Symmetrical chest wall rise Resp: COMMON NORMALS: normal respiratory effort, No retractions and No use of accessory muscles EFFORT & INSPECTION: Yes symmetric chest movement OTHER: Diminished air entr b/l, Cardio: COMMON NORMALS: regular rate, regular rhythm, S1 normal heart sound present, S2 normal heart sound present, No gallops present (Cardio), No murmurs present (Cardio), No rub (Cardio) and Peripheral pulses 2+ throughout RATE: regular rate RHYTHM: regular rhythm HEART SOUNDS: S1 normal heart sound present and S2 normal heart sound present PERIPHERAL PULSES: Peripheral pulses 2+ throughout GI: COMMON NORMALS: Normal to inspection, nondistended, normoactive bowel s ounds present, Soft to palpation, non-tender, No hepatosplenomegaly present and no masses AUSCULTATION: Yes normoactive bowel sounds PALPATION: Yes Soft to palpation and Yes No hepatosplenomegaly present RECTAL EXAM: Yes deferred : COMMON NORMALS: Yes no CVA tenderness BLADDER/KIDNEY EXAM: Yes no CVA tenderness Back/Pelvis: COMMON NORMALS: no CVA tenderness Extremity: NARRATIVE EXTREMITY EXAM: 3+ B/L Pitting edema in both lower extremity Bilateral upper extremity swelling right greater than left Neuro: COMMON NORMALS: patient oriented x3 Urinary Catheter Management: Matias: Cath Placed During This Visit: yes Reason for Continuing Indwelling Catheter: Acute Urinary Retention or Obstruction Urinary Catheter Date of Insertion: 12/28/21 Urinary Catheter Time of Insertion: 16:47 Data : 01/04/22 04:50 01/04/22 04:50 Micro: Microbiology 12/31/21 18:30 Gram Stain - Final Sputum - Expectorated Sputum Sputum Culture - Final A&P Assessment and plan (1) Acute on chronic respiratory failure with hypoxia and hypercapnia: Status: Acute (2) Atrial fibrillation: Status: Acute (3) CAD (coronary artery disease): Status: Chronic (4) Hypertension: Status: Chronic Qualifiers: Hypertension type: primary hypertension Qualified Code(s): I10 - Essential (primary) hypertension (5) Hyperthyroidism: Status: Chronic (6) Diabetes mellitus, type II: Status: Chronic (7) COPD (chronic obstructive pulmonary disease): Status: Chronic Qualifiers: COPD type: COPD with acute exacerbation Qualified Code(s): J44.1 - Chronic obstructive pulmonary disease with (acute) exacerbation (8) CHF (congestive heart failure): Status: Chronic (9) Uses bilevel positive airway pressure (BPAP) ventilation at home: Status: Chronic (10) On home oxygen therapy: Status: Chronic Plan 66 year old male with a past medical history of advanced COPD, on home O2, home BiPAP, diastolic heart failure, atrial fibrillation, CAD, sleep apnea, insulin- dependent type 2 diabetes mellitus, hypertension, history of Covid infection, h istory of GI bleed not on anticoagulation has had recurrent hospitalizations in the last 4 months for SOB 2/2 COPD and CHF exacerbation, intubated on last admission, who presents to ER from home for increased swelling in his arms and found to in hypoxic and hypercapniec respiratory faliure. Assessment: # Acute on chronic hypoxic hypercapnic respiratory failure: Secondary to , decompensated heart failure with preserved ejection fraction , pneumonia, COPD exacerbation. X-ray chest has shown: Bilateral pleural effusion, pulmonary vascular congestion, Worsening bibasilar infiltrates and atelectasis. CT angio chest PE protcl: No P.E , Bibasilar atelectasis.? Superimposed pneumonia in the right lower lobe cannot be excluded. Has bilateral lower extremity 3+ pitting edema, worsening shortness of breath. proBNP: Mildly elevated Echocardiogram done in November 2021 shows a normal EF with grade 1 diastolic dysfunction with a normal RVSP. Procalcitonin: Normal MRSA PCR negative Urine Legionella antigen: Negative Bacterial antigen panel: Negative Blood culture:NTD DuoNebs every 6 hour, budesonide twice daily. Solu-Medrol 40 mg IV daily Lasix 40 mg IV daily Acetazolamide to 250 mg p.o. daily Was on Zosyn. Will de-escalate antibiotic to cef Vancomycin and levofloxacin has been discontinued Intake output charting Daily weight K>4, MG > 2 Fluid restriction 1500 cc Continue BiPAP #Decompensated HFpEF : Plan as above #COPD exacerbation: Plan as above # Atrial fibrillation: Currently rate controlled Continue amiodarone and metoprolol Continue telemetry monitoring #Hyperthyroidism: Methimazole #Rt upper extremity swelling : Rt upper extremity Doppler vein:Negative #DM2 : Continue Lantus, MDSSI Monitor fingerstick glucose CODE STATUS: Full code. Lovenox for DVT prophylaxis. Protonix for PUD prophylaxis. Carb consistent mechanical soft diet. #Disposition: Patient will need placement to SNF Attestations Medical Necessity Statement*: Patient is to be in hospital for management of acute on chronic respiratory failure. Coding Level of Care Code Acute Cutlet Maker Pork for Chg Fwd Diagnoses Acute on chronic respiratory failure with hypoxia and hypercapnia J96.21; J96.22 Atrial fibrillation I48.91 CAD (coronary artery disease) I25.10 Hypertension I10 Hypertension type: primary hypertension Hyperthyroidism E05.90 Diabetes mellitus, type II E11.9 COPD (chronic obstructive pulmonary disease) J44.1 COPD type: COPD with acute exacerbation CHF (congestive heart failure) I50.9 Uses bilevel positive airway pressure (BPAP) ventilation at home Z99.89 On home oxygen therapy Z99.81
--- NOTE | 2022-01-04 16:45 | PC.SOCIAL ---
IMM UPDATED IMM dated and initialed and copy given to patient
[2022-01-04 17:53] LABS: Glucose Point of Care 267 mg/dL (70-110)
[2022-01-04] MEDS: sennosides 8.6 mg Tablet 17.2 MG PO (20:22)
[2022-01-04] MEDS: insulin glargine 100 units/1 mL 15 UNIT SUBCUT (21:56)
--- NOTE | 2022-01-04 23:55 | PC.NURSE ---
Patient's blood glucose was elevated to 353. Pt was given his scheduled insulin dosages. Pt then was requesting snacks and sodas. Pt informed and educated that we needed to try to keep his blood glucose levels down and eating at this time would not be beneficial. Pt became upset and stated he would no longer be taking the steroids since they raise his blood sugar and then he can't eat. Pt was educated on the purpose of the steroids with no evidence of learning
[2022-01-05] VITALS (10 sets, daily range): BP systolic 127–180; BP diastolic 81–87; PULSE 61–73; RESP 18–21; TEMP 36.4–37.1; O2SAT 93–96
[2022-01-05] MEDS: ipratropium-albuterol 3 mL Neb INHALATION (03:23)
[2022-01-05] MEDS: pantoprazole DR 40 mg Tablet PO (05:39)
[2022-01-05] MEDS: methIMAzole 5 MG Tablet 2.5 MG PO (05:39)
[2022-01-05] MEDS: aspirin 81 mg EC Tablet PO (05:39)
[2022-01-05 06:06] LABS: Glucose Point of Care 355 mg/dL (70-110)
[2022-01-05 06:06] LABS: Glucose Point of Care 340 mg/dL (70-110)
[2022-01-05 06:06] LABS: Glucose Point of Care 127 mg/dL (70-110)
[2022-01-05 06:09] LABS: Basophils % 0.2 %; Eosinophils # 0.1 10^3/uL (0.0-0.8); Eosinophils % 0.7 %; Hematocrit 41.4 % (42.0-52.0); Hemoglobin 13.4 g/dL (11.7-16.6); Lymphocytes # 0.6 10^3/uL (0.8-4.8); Lymphocytes % 5.2 %; Mean Corpuscular HGB Conc 32.4 g/dL (30.0-36.0); Mean Corpuscular Hemoglobin 29.2 pg (28.0-34.0); Mean Corpuscular Volume 90.2 fl (80-94); Mean Platelet Volume 10.2 fL (7.4-10.4); Monocytes # 0.8 10^3/uL (0.2-0.9); Monocytes % 6.3 %; Neutrophils % 85.8 %; Nucleated Red Blood Cells % 0 %; Platelet Count 234 10^3/cmm (130-400); Red Blood Count 4.59 10^6/uL (4.1-5.3); Red Cell Distribution Width 17.5 % (12.1-15.1); White Blood Count 12.2 10^3/uL (4.0-10.0)
[2022-01-05 06:24] LABS: Blood Urea Nitrogen 34 mg/dL (8-23); Carbon Dioxide 29 mmol/L (22-29); Chloride 95 mmol/L (98-107); Glomerular Filtration Rate 113.5 mL/min (90-130); Glucose 124 mg/dL (65-115); Magnesium 2.1 mg/dL (1.7-2.3); Osmolality Calculated 291 mOsm/kg (285-295); Sodium 136 mmol/L (136-145)
[2022-01-05 06:28] LABS: Anion Gap 16.1 (5-19); Potassium 4.1 mmol/L (3.5-5.1)
[2022-01-05] MEDS: FUROsemide 10 mg/mL SDV 4mL 40 MG IVP (08:15)
[2022-01-05] MEDS: enoxaparin 40 mg/0.4 mL Syringe SUBCUT (08:15)
[2022-01-05] MEDS: amiodarone 200 mg Tablet PO (08:16)
[2022-01-05] MEDS: acetaZOLAMIDE 250 mg Tablet PO (08:16)
[2022-01-05] MEDS: atorvastatin 40 mg Tablet 20 MG PO (08:16)
[2022-01-05] MEDS: metoprolol tartrate 25 mg Tablet PO (08:16)
[2022-01-05] MEDS: amlodipine 5 mg Tablet PO (08:16)
--- NOTE | 2022-01-05 10:15 | P.DS_ITS ---
Discharge Providers Date of Admission: 12/28/21 18:22 Date of Discharge: January 05, 2022 Attending Provider at Admission: Tony Cruz MD Attending Provider at Discharge: Marcos Rubin MD Primary Care Provider: Nasreen Gomez Diagnoses at Discharge Discharge Diagnosis (1) Acute on chronic respiratory failure with hypoxia and hypercapnia: Status: Acute (2) Atrial fibrillation: Status: Acute Permanent problem details: paroxysmal long-standing; not on anticoagulation due to history GI bleed 2019 while on eliquis (3) CAD (coronary artery disease): Status: Chronic (4) Hypertension: Status: Chronic Qualifiers: Hypertension type: primary hypertension Qualified Code(s): I10 - Essential (primary) hypertension (5) Hyperthyroidism: Status: Chronic (6) Diabetes mellitus, type II: Status: Chronic (7) COPD (chronic obstructive pulmonary disease): Status: Chronic Qualifiers: COPD type: COPD with acute exacerbation Qualified Code(s): J44.1 - Chronic obstructive pulmonary disease with (acute) exacerbation Permanent problem details: Gold Class D, centrolobular (8) CHF (congestive heart failure): Status: Chronic Permanent problem details: 12/05/2021 EF 65% with grade 1 diastolic dysfunction (9) Uses bilevel positive airway pressure (BPAP) ventilation at home: Status: Chronic (10) On home oxygen therapy: Status: Chronic Permanent problem details: 5L Reason for Visit Reason for Visit: SOB, EDEMA Hospital Course Hospital Course 66 year old male with a past medical history of advanced COPD, on home O2, home BiPAP, diastolic heart failure, atrial fibrillation, CAD, sleep apnea, insulin- dependent type 2 diabetes mellitus, hypertension, history of Covid infection, history of GI bleed not on anticoagulation has had recurrent hospitalizations in the last 4 months for SOB 2/2 COPD and CHF exacerbation, intubated on last admis miriam, who presents to ER from home for increased swelling in his arms, as well as worsening bilateral lower extremity swelling, shortness of breath. During this hospital stay he was managed for: Acute on chronic hypoxic hypercapnic respiratory failure: Secondary to , decompensated heart failure with preserved ejection fraction , pneumonia, COPD exacerbation. He was kept on aggressive IV diuresis, Steroids , antibiotics , other conservative respiratory support measures, duo nebs, supplemental oxygen as needed incentive spirometer , flutter valve , pertinent imaging studies included CTA chest with PE protocol: No P.E , Bibasilar atelectasis.? Superimposed pneumonia in the right lower lobe cannot be excluded.X-ray chest has shown: Bilateral pleural effusion, pulmonary vascular congestion,?Worsening bibasilar infiltrates and atelectasis. MRSA PCR negative , Urine Legionella antigen: Negative , Bacterial antigen panel: Negative Blood culture:NTD. Patient responded well to above medical management time of discharge she was negative 17ls, bilateral lower extremity swelling has significantly gone down , bilateral upper extremity swelling was improving, venous duplex UE RT right upper extremity was negative for dvt. His atrial fibrillation rate was he was continued on amiodarone and metoprolol, for his hyperthyroidismhe was continued on methimazole. He responded well to medical management at the time of discharge he was slowly progressing to baseline patient is advised to be compliant with the BiPAP use at night.He has been discharged to longterm for further recovery. Patient has been advised to follow-up with his cardiology as well as pulmonology as an outpatient. Physical Exam Const: COMMON NORMALS: patient oriented x3 HENMT: COMMON NORMALS: normocephalic and atraumatic HEAD & SCALP: normocephalic and atraumatic Eye: COMMON NORMALS: no scleral icterus GENERAL EYE: appearance normal, both eyes and all related structures Chest: COMMONS NORMALS: normal inspection of the chest and normal palpation of entire chest wall CHEST: Yes Symmetrical chest wall rise Resp: COMMON NORMALS: normal respiratory effort, No retractions and No use of accessory muscles EFFORT & INSPECTION: Yes symmetric chest movement OTHER: Diminished air entr b/l, Cardio: COMMON NORMALS: regular rate, regular rhythm, S1 normal heart sound present, S2 normal heart sound present, No gallops present (Cardio), No murmurs present (Cardio), No rub (Cardio) and Peripheral pulses 2+ throughout RATE: regular rate RHYTHM: regular rhythm HEART SOUNDS: S1 normal heart sound present and S2 normal heart sound present PERIPHERAL PULSES: Peripheral pulses 2+ throughout GI: COMMON NORMALS: Normal to inspection, nondistended, normoactive bowel sounds present, Soft to palpation, non-tender, No hepatosplenomegaly present and no masses AUSCULTATION: Yes normoactive bowel sounds PALPATION: Yes Soft to palpation and Yes No hepatosplenomegaly present RECTAL EXAM: Yes deferred Extremity: NARRATIVE EXTREMITY EXAM: 1+ B/L Pitting edema in both lower extremity Bilateral upper extremity swelling right greater than left Neuro: COMMON NORMALS: patient oriented x3 Urinary Catheter Management: Matias: Cath Placed During This Visit: yes Reason for Continuing Indwelling Catheter: Other Urinary Catheter Date of Insertion: 12/28/21 Urinary Catheter Time of Insertion: 16:47 Discharge Data Studies Completed and Pending Completed Studies During Hospitalization Category Date Time Status CTA chest [CT angio chest PE protcl [id number]] Urgent Cat Scan 12/28/21 15:42 Completed XR chest 1V portable [id number] Routine Exams 12/31/21 08:53 Completed XR chest 1V portable [id number] Routine Exams 01/03/22 07:00 Completed XR chest 1V portable [id number] Urgent Exams 12/28/21 12:15 Completed US venous duplex upper extremity RT [CV venous duplex Ultrasound 01/02/22 10:37 [place] [id number]] Routine Radiology Impressions Chest CTA 12/28/21 15:42 IMPRESSION: 1. No evidence for pulmonary embolus. Evaluation is limited in the left lower lobe due to breathing motion artifact. 2. Bibasilar atelectasis. Superimposed pneumonia in the right lower lobe cannot be excluded. Chest X-Ray 01/03/22 07:00 IMPRESSION: Imaging findings suggestive of resolving pulmonary edema with small bilateral pleural effusions. Pneumonia should be excluded clinically. Laboratory Results WBC 12.2 10^3/uL (4.0-10.0) H 01/05/22 06:01 RBC 4.59 10^6/uL (4.1-5.3) 01/05/22 06:01 Hgb 13.4 g/dL (11.7-16.6) 01/05/22 06:01 Hct 41.4 % (42.0-52.0) L 01/05/22 06:01 MCV 90.2 fl (80-94) D 01/05/22 06:01 MCH 29.2 pg (28.0-34.0) 01/05/22 06:01 MCHC 32.4 g/dL (30.0-36.0) D 01/05/22 06:01 RDW 17.5 % (12.1-15.1) H 01/05/22 06:01 Plt Count 234 10^3/cmm (130-400) 01/05/22 06:01 MPV 10.2 fL (7.4-10.4) 01/05/22 06:01 Neut % (Auto) 85.8 % 01/05/22 06:01 Lymph % (Auto) 5.2 % 01/05/22 06:01 [place] % (Auto) 6.3 % 01/05/22 06:01 Eos % (Auto) 0.7 % 01/05/22 06:01 Baso % (Auto) 0.2 % 01/05/22 06:01 Neut # (Auto) 10.50 10^3/uL (1.8-7.7) H 01/05/22 06:01 Lymph # (Auto) 0.6 10^3/uL (0.8-4.8) L 01/05/22 06:01 [place] # (Auto) 0.8 10^3/uL (0.2-0.9) 01/05/22 06:01 Eos # (Auto) 0.1 10^3/uL (0.0-0.8) 01/05/22 06:01 Baso # (Auto) 0.0 10^3/uL (0.0-0.1) 01/05/22 06:01 Nucleated RBC % (auto) 0 % 01/05/22 06:01 Nucleated RBCs # 0.0 /100WBC 01/05/22 06:01 D-Dimer 1.30 ug/mIFEU (0-0.59) H 12/28/21 13:28 Specimen Type Arterial 12/29/21 10:07 Sample Site Radial, left 12/29/21 10:07 ABG pH 7.47 (7.35-7.45) H 12/29/21 10:07 ABG pCO2 57.3 mmHg (35-45) H 12/29/21 10:07 ABG pO2 69.7 mmHg (80.0-100.0) L 12/29/21 10:07 ABG HCO3 41.2 mmol/L (22-26) H 12/29/21 10:07 ABG O2 Saturation 94.7 12/29/21 10:07 ABG Base Excess 15.0 mmol/L (-2.0-2.0) H 12/29/21 10:07 Gee Test Pos 12/29/21 10:07 A-a O2 Gradient 19.5 mmHg (5-10) H 12/29/21 10:07 Hematocrit 37.7 % (42-52) L 12/29/21 10:07 Hgb O2 Saturation 93.0 % (95-100) L 12/29/21 10:07 Carboxyhemoglobin 1.1 %THgb (0.4-20.1) 12/29/21 10:07 Methemoglobin 0.7 % (0.4-1.5) 12/29/21 10:07 Total Hemoglobin 12.3 g/dL (14-18) L 12/29/21 10:07 Sodium 145.0 mmol/L (131-143) H 12/29/21 10:07 Potassium 3.8 mmol/L (3.5-5.0) 12/29/21 10:07 Glucose 149.0 mg/dL (70-115) H 12/29/21 10:07 Ionized Calcium 1.1 mmol/L (1.1-1.4) 12/29/21 10:07 O2 Delivery Device Bipap 12/29/21 10:07 O2 Liters/Min 10.0 % 12/28/21 12:06 FiO2 40.0 % 12/29/21 10:07 [employer] ID glc 12/29/21 10:07 Sodium 136 mmol/L (136-145) 01/05/22 06:01 Potassium 4.1 mmol/L (3.5-5.1) 01/05/22 06:01 Chloride 95 mmol/L (98-107) L 01/05/22 06:01 Carbon Dioxide 29 mmol/L (22-29) 01/05/22 06:01 Anion Gap 16.1 (5-19) 01/05/22 06:01 BUN 34 mg/dL (8-23) H 01/05/22 06:01 Creatinine 0.7 mg/dL (0.7-1.2) 01/05/22 06:01 GFR Calculation 113.5 mL/min (90-130) 01/05/22 06:01 Glucose 124 mg/dL (65-115) H 01/05/22 06:01 POC Glucose 127 mg/dL (70-110) H 01/05/22 05:52 Estimat Average Glucose 160 12/29/21 03:30 Hemoglobin A1c 7.2 % (4.0-6.0) H 12/29/21 03:30 Calculated Osmolality 291 mOsm/kg (285-295) 01/05/22 06:01 Calcium 9.0 mg/dL (8.5-10.5) 01/05/22 06:01 Magnesium 2.1 mg/dL (1.7-2.3) 01/05/22 06:01 Iron 72 ug/dL (59-158) 12/28/21 13:28 TIBC 253 mcg/dl 12/28/21 13:28 % Saturation 28.4 % (20-50) 12/28/21 13:28 Unsat Iron Binding 181 ug/dL (112-347) 12/28/21 13:28 Total Bilirubin 0.3 mg/dL (0.15-1.2) 01/01/22 03:34 AST 12 U/L (0-40) 01/01/22 03:34 ALT 18 U/L (0-41) 01/01/22 03:34 Alkaline Phosphatase 76 IU/L (40-130) 01/01/22 03:34 Troponin T Baseline 31 ng/L (0-15) H 12/28/21 13:28 Troponin T 120 Minute 28.73 ng/L (0-15) H 12/28/21 Unknown Delta Troponin T -2.27 ABS# (0-10) L 12/28/21 Unknown Troponin T Hi Sens 6Hr 28.59 ng/L (0-15) H 12/28/21 20:23 Troponin T Hi Sens 6Hr Delta -2.41 ng/L (0-12) L 12/28/21 20:23 C-Reactive Protein 3.0 mg/L (0.0-4.9) 12/28/21 13:28 NT-Pro-B Natriuret Pep 668 pg/mL (0-125) H 12/28/21 13:28 Total Protein 5.6 g/dL (6.6-8.7) L 01/01/22 03:34 Albumin 3.3 g/dL (3.5-5.2) L 01/01/22 03:34 Globulin 2.3 g/dL (1.3-4.6) 01/01/22 03:34 Triglycerides 89 mg/dL (0-150) 12/29/21 03:30 Cholesterol 167 mg/dL (0-200) 12/29/21 03:30 LDL Cholesterol, Calc 86 mg/dL (50-129) 12/29/21 03:30 Total VLDL Cholesterol 18 mg/dL (0-30) 12/29/21 03:30 HDL Cholesterol 63 mg/dL (60-100) 12/29/21 03:30 Cholesterol/HDL Ratio 2.65 mg/dL (1.0-5.00) 12/29/21 03:30 Procalcitonin 0.10 ng/mL (0-0.5) 12/28/21 13:28 Urine Color Yellow (Yellow) 12/28/21 16:00 Urine Appearance Clear (CLEAR) 12/28/21 16:00 Urine pH 5 (5-7) 12/28/21 16:00 Ur Specific [place] 1.020 (1.005-1.030) 12/28/21 16:00 Urine Protein 3+ (Negative) H 12/28/21 16:00 Urine Glucose (UA) Trace (Normal) H 12/28/21 16:00 Urine Ketones Negative (Negative) 12/28/21 16:00 Urine Blood Neg (Negative) 12/28/21 16:00 Urine Nitrate Negative (Negative) 12/28/21 16:00 Urine Bilirubin Neg (Negative) 12/28/21 16:00 Urine Urobilinogen Norm mg/dL (Negative) 12/28/21 16:00 Ur Leukocyte Esterase Negative (Negative) 12/28/21 16:00 Urine RBC None /hpf (0-2) 12/28/21 16:00 Urine WBC Rare /hpf (0-5) 12/28/21 16:00 Ur Squamous Epith Cells 0-4 /hpf (0-5) H 12/28/21 16:00 Amorphous Sediment Not Reportable 12/28/21 16:00 Urine Bacteria Trace /hpf (NONE) 12/28/21 16:00 Hyaline Casts 0-4 /lpf H 12/28/21 16:00 Urine Mucus 1+ /hpf 12/28/21 16:00 Vancomycin Trough 20.1 ug/mL (10-15) H 12/30/21 04:45 Coronavirus 229E (PCR) Not detected (NOT DETECT) 12/28/21 13:54 SARS-CoV-2 (PCR) Not detected (NOT DETECT) 12/28/21 13:54 SARS-CoV-2 Ag (Rapid) Negative (Negative) 01/03/22 17:45 Vitals Last Vital Signs Temp 97.6 F 01/05/22 07:48 Pulse 71 01/05/22 08:28 Resp 18 01/05/22 08:28 BP 180/82 01/05/22 07:48 Pulse Ox 94 01/05/22 08:28 Discharge Plan Discharge Patient Disposition: Xfer [facility] Condition: Stable Prescriptions: New Lasix 40 mg tablet 40 mg PO BID Qty: 60 1RF prednisone 20 mg tablet 20 mg PO DAILY 7 Days Qty: 7 0RF Cepacol Sore Throat (iraj-men) 15-2.6 mg lozenge 1 jack mucous membrane Q4H PRN (Reason: sore throat) Qty: 16 0RF Continued Yupelri 175 mcg/3 mL solution for nebulization 175 mcg inhalation DAILY Qty: 90 11RF Vitamin B12 Gummies 1 - 2 tab PO DAILY 0RF aspirin 81 mg tablet,delayed release (DR/EC) 81 mg PO QAM 0RF rosuvastatin 20 mg tablet 10 mg PO DAILY 0RF amiodarone [Pacerone] 200 mg tablet 200 mg PO DAILY 0RF metoprolol tartrate 25 mg Tablet 25 mg PO BID@0900,2100 Qty: 60 0RF Lantus Solostar U-100 Insulin 100 unit/mL (3 mL) insulin pen 15 unit SUBCUT BEDTIME Qty: 0 0RF losartan 50 mg Tablet 75 mg PO DAILY Qty: 45 0RF amlodipine 5 mg Tablet 5 mg PO DAILY Qty: 30 0RF Januvia 50 mg tablet 50 mg PO QAM 0RF omeprazole 40 mg capsule,delayed release(DR/EC) 40 mg PO QAM 0RF potassium chloride 20 mEq tablet,ER particles/crystals 20 meq PO DAILY 0RF albuterol sulfate 90 mcg/actuation HFA aerosol inhaler 1 inh inhalation Q6H PRN (Reason: shortness of breath or wheezing) Qty: 8.5 0RF formoterol fumarate [Perforomist] 20 mcg/2 mL solution for nebulization 2 ml INHALATION BID Qty: 120 2RF Combivent Respimat 20-100 mcg/actuation mist 1 puff inhalation Q6H Qty: 4 0RF methimazole 5 mg tablet 2.5 mg PO QAM 0RF Discontinued furosemide 40 mg Tablet 60 mg PO DAILY@0800 Qty: 45 0RF cefdinir 300 mg capsule 300 mg PO BID Qty: 4 0RF Rx Instructions: rx filled 12/24/21 2d/s prednisone 20 mg tablet See Rx Instructions .ROUTE .COMPLEX 0RF Rx Instructions: 40 mg p.o. daily x4 days, then 30 mg a day for 4 days, 20 mg a day for 4 days 10 mg a day for 4 days and stop Discharge Orders: Discharge Order (Routine); Ordered 01/05/22 Ordered By: Marcos Rubin Referrals: Nasreen Gomez PA [Primary Care Provider] - 1 month Nick Corley MD [Physician] - 2 weeks Krystal Meneses MD [Physician] - 2 weeks Discharge Diet: Cardiac Discharge Activity: Resume usual activity Patient Instructions: Furosemide (By mouth), Prednisone (By mouth), Opioid Safety Discharge Attestations Time Spent in Discharge Care*: greater than 30 min Specific Discharge Activities: educating patient, educating and/or supporting family/caregiver, discussing with pcp/other providers, discussing with case finisher/social workers/dc planners, documenting/other paperwork and evaluating patient/reviewing data Status at Discharge: Cognitive status at discharge: cognitively intact , Behavioral status at discharge: cooperative , Functional status at discharge: independent ambulation , Overall status at discharge: patient is progressing back to baseline Quality Metrics Clinical Quality Measures [ No reported AMI, CVA or VTE this stay] Coding Level of Care Code Acute Chg FW DC note Diagnoses Acute on chronic respiratory failure with hypoxia and hypercapnia J96.21; J96.22 Atrial fibrillation I48.91 CAD (coronary artery disease) I25.10 Hypertension I10 Hypertension type: primary hypertension Hyperthyroidism E05.90 Diabetes mellitus, type II E11.9 COPD (chronic obstructive pulmonary disease) J44.1 COPD type: COPD with acute exacerbation CHF (congestive heart failure) I50.9 Uses bilevel positive airway pressure (BPAP) ventilation at home Z99.89 On home oxygen therapy Z99.81
[2022-01-05] MEDS: cetylpyridinium Lozenge 1 EACH MUCOUS MEM (10:46)
[2022-01-05 11:25] LABS: Glucose Point of Care 269 mg/dL (70-110)
[2022-01-05 11:37] LABS: SARS Covid-2 Antigen Negative (Negative)
--- NOTE | 2022-01-05 11:55 | PC.NURSE ---
Report to Yuliana ALEMAN at [place] this time.
[2022-01-05] MEDS: insulin lispro 100 unit/1 mL SUBCUT (12:40)
--- NOTE | 2022-01-05 13:39 | PC.NURSE ---
Patient transported to [place] this time.
== END 2022-01-05 13:40 | disposition skilled nursing facility (03) | DRG 291 ==
LOC: ER 15:23 → ICU 15:59 → MEDSURG 12-29 15:20
PROVIDERS: Admitting Provider Student in an Organized Health Care Education/Training Program; Emergency Provider Emergency Medicine; PCP Physician Assistant; Visit Provider Internal Medicine
DX: I13.0 Hypertensive heart and chronic kidney disease with heart failure and stage 1 through stage 4 chronic kidney disease, or unspecified chronic kidney disease (principal); I50.33 Acute on chronic diastolic (congestive) heart failure; J96.21 Acute and chronic respiratory failure with hypoxia; J96.22 Acute and chronic respiratory failure with hypercapnia; J18.8 Other pneumonia, unspecified organism; J44.1 Chronic obstructive pulmonary disease with (acute) exacerbation; J98.11 Atelectasis; I48.0 Paroxysmal atrial fibrillation; E11.9 Type 2 diabetes mellitus without complications; E03.9 Hypothyroidism, unspecified; Z99.81 Dependence on supplemental oxygen; G47.33 Obstructive sleep apnea (adult) (pediatric); Z79.4 Long term (current) use of insulin; Z86.16 Personal history of COVID-19; Z87.19 Personal history of other diseases of the digestive system; Z99.89 Dependence on other enabling machines and devices; E78.5 Hyperlipidemia, unspecified; E66.9 Obesity, unspecified; Z68.34 Body mass index [BMI] 34.0-34.9, adult; N18.2 Chronic kidney disease, stage 2 (mild); F17.210 Nicotine dependence, cigarettes, uncomplicated; Z79.82 Long term (current) use of aspirin
CPT/HCPCS: 36415; 36416; 36600; 51702; 71045; 71275; 80048; 80051; 80053; 80061; 80202; 81001; 82330; 82803; 82805; 82962; 83036; 83540; 83550; 83735; 83880; 84145; 84484; 85025; 85378; 86140; 86403; 87040; 87070; 87205; 87426; 87449; 87635; 87641; 93005; 93971; 94640; 94660; 96365; 96372; 96375; 97110; 97116; 97161; 97165; 97530; 97535; 99291; J0696; J1644; J1650; J1815 ×2; J1940; J2543; J2920; J2930; J3370; J7626; Q9967

== ENCOUNTER 2022-01-15 13:04 | Inpatient (IN) | payer MEDICARE, MEDICAID, SELFPAY ==
[2022-01-15] VITALS (17 sets, daily range): BP systolic 93–136; BP diastolic 58–95; PULSE 63–79; RESP 13–29; TEMP 37.1–37.2; O2SAT 82–100; BMI 29.1; BMI 35.3
--- NOTE | 2022-01-15 13:23 | ED_ITS ---
HPI - Altered Mental Status General: Chief Complaint: Altered Mental Status Stated Complaint: AMS; LOW O2 SATS Time Seen by Provider: 01/15/22 13:11 Source: EMS Mode of arrival: EMS Limitations: altered mental status History of Present Illness: This patient was transported to EMS from [facility]. The history is somewhat limited due to the patient's reluctance to answer questions in any detail. This is unclear whether this is due to actual alteration in his thought process or patient's voluntary decision not to answer questions in any detail. Patient has a history of CHF as well as oxygen dependent COPD. He also apparently wears were supposed to wear CPAP at bedtime. History is that he apparently seemingly altered today by a [facility] staff and was noted to have a low pulse oximetry upon arrival by EMS. They placed him on a nonrebreather and transported in the emergency department. He currently denies any pain or discomfort at this time. He states he did eat breakfast of pancakes. MD complaint: altered mental status and confusion Review of Systems Eyes: Denies: change in vision ENMT: Denies: throat pain Card: Reports: swelling of feet/ankles; Denies: chest pain Resp: Reports: dyspnea GI: Denies: abdominal pain, nausea or vomiting : Denies: difficulty urinating or dysuria Musc: Reports: extremity swelling; Denies: back pain or extremity pain Skin/Breast: Denies: rash or pruritus PFS ED PFSH: Medical History Acute on chronic respiratory failure with hypoxia and hypercapnia Atrial fibrillation paroxysmal long-standing; not on anticoagulation due to history GI bleed 2018 while on eliquis BMI 30.0-30.9,adult CAD (coronary artery disease) CHF (congestive heart failure) 12/05/2021 EF 65% with grade 1 diastolic dysfunction Chronic kidney disease, stage II (mild) Chronic respiratory failure with hypoxia COPD (chronic obstructive pulmonary disease) Gold Class D, centrolobular Cor pulmonale COVID-19 (~09/2021) Diabetes Diabetes mellitus, type II GERD (gastroesophageal reflux disease) History of Khan's palsy History of GI bleed (~2018) While on eliquis History of PFTs 03/2020 obstructive and restrictive components described History of sleep study (~2012) Hyperlipidemia Hypertension Hyperthyroidism Nicotine addiction Noncompliance On home oxygen therapy 5L DAYNE (obstructive sleep apnea) Uses bilevel positive airway pressure (BPAP) ventilation at home Surgical History H/O hernia repair (~2016) ventral incisional with repair x 2, in 2016 with mesh and lysis of adhesions History of cardiac catheterization (~07/2021) patent stent per report History of colonoscopy History of coronary artery stent placement x 2 LAD (2005, 2010) History of endoscopy small bowel capsule History of esophagogastroduodenoscopy (EGD) Family History Mother Lung disease COPD Sister Cancer Social History Smoking and tobacco status: current some day smoker cigarettes Years cigarettes smoked: 47 [ Other cigarette details: Hx of 2PPD x 47 Years] Second hand smoke exposure: Yes Alcohol intake: current Alcohol intake frequency: holidays/special occasions only Caregiver/support person: Yes Lives independently: Yes Housing: Custodial Marital status: Single Current occupational status: disabled and 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 He will communicate in 1-2 word sentences. He has intermittent shaking which occurs every several seconds. Const: COMMON NORMALS: alert NUTRITIONAL APPEARANCE: obese ORIENTATION/CONSCIOUSNESS: Yes oriented to person HENMT: COMMON NORMALS: normocephalic, atraumatic, Normal nasal mucous membranes and turbinates present, moist oral mucous membranes and oropharynx normal HEAD & SCALP: normocephalic and atraumatic; no Acrocyanosis present FACE & SINUS: no Acrocyanosis present NOSE: Normal nasal mucous membranes and turbinates present Eye: COMMON NORMALS: Equal, round and reactive pupils present, EOMs intact bilaterally and conjunctivae normal CONJUNCTIVA: Yes conjunctivae normal PUPIL: Yes Equal, round and reactive pupils present Neck/C-Spine: COMMON NORMALS: full ROM, no lymphadenopathy, supple, no meningeal signs and no JVD Lymph: LYMPHATIC: no lymphadenopathy noted Chest: COMMONS NORMALS: normal inspection of the chest and normal palpation of entire chest wall Resp: COMMON NORMALS: normal respiratory effort, No retractions and No use of accessory muscles AUSCULTATION: diminished lung sounds bilateral Cardio: COMMON NORMALS: no JVD, regular rate, regular rhythm and No murmurs present (Cardio) RATE: regular rate RHYTHM: regular rhythm GI: COMMON NORMALS: Soft to palpation, non-tender and no masses PALPATION: Yes Soft to palpation Back/Pelvis: COMMON NORMALS: thoracic and lumbar spine normal to inspection, no thoracic nor lumbar tenderness and thoraco-lumbar ROM normal Extremity: COMMON NORMALS: full ROM and capillary refill normal NARRATIVE EXTREMITY EXAM: Bilateral pitting edema to knee. No calf tenderness. Neuro: COMMON NORMALS: moves all extremities and no focal motor deficits SENSORIUM/ORIENTATION: Yes alert and Yes oriented to person MENINGEAL SIGNS: Yes no meningeal signs Course Reevaluation(s): Reevaluation #1: The patient currently on noninvasive ventilatory support and improving somewhat however it will take some time to get his CO2 level down into his baseline. I discussed this with both patient as well as his family who are now present. Will discuss with hospitalist. Consultations: Consultation #1: Discussed with Dr. Bower hospitalist who agreed to admit patient. Time: 14:33 Vital Signs: Vital signs: Vital Signs Temperature 98.9 F 01/15/22 13:07 Pulse Rate 76 01/15/22 13:46 Respiratory Rate 13 01/15/22 13:07 Blood Pressure 136/73 01/15/22 13:07 Pulse Oximetry 95 01/15/22 13:46 MDM - Altered Mental Status Medical Decision Making Patient with hypercapnia likely due to acute on chronic pulmonary failure versus loss of respiratory drive due to increased oxygen delivery. Nonetheless the patient is currently on noninvasive ventilatory support to reduce his CO2 levels and will need to be placed in observation to continue this therapy. Medical Records I reviewed the patient's medical records. Lab Data I reviewed the patient's lab results. : 01/15/22 13:50 01/15/22 13:50 Laboratory Results WBC 12.2 10^3/uL (4.0-10.0) H 01/15/22 13:50 RBC 4.55 10^6/uL (4.1-5.3) 01/15/22 13:50 Hgb 13.4 g/dL (11.7-16.6) 01/15/22 13:50 Hct 43.2 % (42.0-52.0) 01/15/22 13:50 MCV 94.9 fl (80-94) H 01/15/22 13:50 MCH 29.5 pg (28.0-34.0) 01/15/22 13:50 MCHC 31.0 g/dL (30.0-36.0) 01/15/22 13:50 RDW 19.0 % (12.1-15.1) H 01/15/22 13:50 Plt Count 221 10^3/cmm (130-400) 01/15/22 13:50 MPV 11.2 fL (7.4-10.4) H 01/15/22 13:50 Neut % (Auto) 91.0 % 01/15/22 13:50 Lymph % (Auto) 3.7 % 01/15/22 13:50 [place] % (Auto) 2.9 % 01/15/22 13:50 Eos % (Auto) 0.3 % 01/15/22 13:50 Baso % (Auto) 0.6 % 01/15/22 13:50 Neut # (Auto) 11.13 10^3/uL (1.8-7.7) H 01/15/22 13:50 Lymph # (Auto) 0.5 10^3/uL (0.8-4.8) L 01/15/22 13:50 [place] # (Auto) 0.4 10^3/uL (0.2-0.9) 01/15/22 13:50 Eos # (Auto) 0.0 10^3/uL (0.0-0.8) 01/15/22 13:50 Baso # (Auto) 0.1 10^3/uL (0.0-0.1) 01/15/22 13:50 Nucleated RBC % (auto) 0 % 01/15/22 13:50 Nucleated RBCs # 0.0 /100WBC 01/15/22 13:50 Specimen Type Arterial 01/15/22 13:15 Sample Site Radial, left 01/15/22 13:15 ABG pH 7.31 (7.35-7.45) L 01/15/22 13:15 ABG pCO2 96.4 mmHg (35-45) H* 01/15/22 13:15 ABG pO2 68.0 mmHg (80.0-100.0) L 01/15/22 13:15 ABG HCO3 48.1 mmol/L (22-26) H 01/15/22 13:15 ABG O2 Saturation 92.7 01/15/22 13:15 ABG Base Excess 17.0 mmol/L (-2.0-2.0) H 01/15/22 13:15 Gee Test Pos 01/15/22 13:15 A-a O2 Gradient 6.4 mmHg (5-10) 01/15/22 13:15 Hematocrit 39.8 % (42-52) L 01/15/22 13:15 Hgb O2 Saturation 89.2 % (95-100) L 01/15/22 13:15 Carboxyhemoglobin 2.8 %THgb (0.4-20.1) 01/15/22 13:15 Methemoglobin 0.9 % (0.4-1.5) 01/15/22 13:15 Total Hemoglobin 13.0 g/dL (14-18) L 01/15/22 13:15 Sodium 144.0 mmol/L (131-143) H 01/15/22 13:15 Potassium 4.3 mmol/L (3.5-5.0) 01/15/22 13:15 Glucose 135.0 mg/dL (70-115) H 01/15/22 13:15 Ionized Calcium 1.2 mmol/L (1.1-1.4) 01/15/22 13:15 O2 Delivery Device Nc 01/15/22 13:15 O2 Liters/Min 3.0 % 01/15/22 13:15 FiO2 32.0 % 01/15/22 13:15 Checkering Machine Operator ID [id number] 01/15/22 13:15 Imaging Data CXR: I personally reviewed and interpreted this imaging study as follows: My impression: Chest x-ray reveals no acute change from prior chest x-rays. EKG Data EKG 1: I personally reviewed and interpreted this EKG as follows: EKG interpretation time: 13:56 Interpretation: Resting EKG reveals a ventricular rate of 80 bpm appears to be in sinus rhythm. Normal intervals, normal axis however he is displays a significant baseline irritability making interpretation of this EKG rather difficult. Generally the QRS-STs do not appear to be change from prior tracings. Discharge Plan Discharge Clinical Impression: Acute on chronic respiratory failure with hypercapnia Condition: Stable Prescriptions: No Action Yupelri 175 mcg/3 mL solution for nebulization 175 mcg inhalation DAILY Qty: 90 11RF Vitamin B12 Gummies 1 - 2 tab PO DAILY 0RF aspirin 81 mg tablet,delayed release (DR/EC) 81 mg PO QAM 0RF rosuvastatin 20 mg tablet 10 mg PO DAILY 0RF amiodarone [Pacerone] 200 mg tablet 200 mg PO DAILY 0RF metoprolol tartrate 25 mg Tablet 25 mg PO BID@0900,2100 Qty: 60 0RF Lantus Solostar U-100 Insulin 100 unit/mL (3 mL) insulin pen 15 unit SUBCUT BEDTIME Qty: 0 0RF losartan 50 mg Tablet 75 mg PO DAILY Qty: 45 0RF amlodipine 5 mg Tablet 5 mg PO DAILY Qty: 30 0RF Januvia 50 mg tablet 50 mg PO QAM 0RF omeprazole 40 mg capsule,delayed release(DR/EC) 40 mg PO QAM 0RF potassium chloride 20 mEq tablet,ER particles/crystals 20 meq PO DAILY 0RF albuterol sulfate 90 mcg/actuation HFA aerosol inhaler 1 inh inhalation Q6H PRN (Reason: shortness of breath or wheezing) Qty: 8.5 0RF formoterol fumarate [Perforomist] 20 mcg/2 mL solution for nebulization 2 ml INHALATION BID Qty: 120 2RF Combivent Respimat 20-100 mcg/actuation mist 1 puff inhalation Q6H Qty: 4 0RF methimazole 5 mg tablet 2.5 mg PO QAM 0RF Lasix 40 mg tablet 40 mg PO BID Qty: 60 1RF Cepacol Sore Throat (iraj-men) 15-2.6 mg lozenge 1 jack mucous membrane Q4H PRN (Reason: sore throat) Qty: 16 0RF Referrals: Nasreen Gomez PA [Primary Care Provider] - Coding Level of Care Code ED Bingo Caller for Chg Fwd Exam Comprehensive
--- NOTE | 2022-01-15 13:26 | XRR_ITS ---
PROCEDURE INFORMATION: Exam: XR Chest Exam date and time: 01/15/2022 1:26 PM Age: 66 years old Clinical indication: Shortness of breath; Additional info: SOB, AMS TECHNIQUE: Imaging protocol: XR of the chest. Views: 1 view. COMPARISON: CR XR chest 1V portable [id number] 01/03/2022 7:02 AM FINDINGS: Lungs: There are bibasilar pulmonary opacities, but on the right side this appears more mass-like. This may be due to rounded atelectasis given change since the recent prior comparison exam. No perihilar edema. Pleural spaces: Suspect small pleural effusions. No pneumothorax. Heart/Mediastinum: There is enlargement of the cardiac silhouette. The mediastinal contours are normal. Bones/joints: No acute osseous abnormality. XR/XR chest 1V portable [id number] IMPRESSION: Bibasilar airspace disease. Rounded atelectasis in the right lung base? CT CHEST may clarify, as clinically directed.
--- NOTE | 2022-01-15 13:26 | ECG_ITS ---
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 Measurements Intervals [place] Rate: 80 P: -7 TX: 214 QRS: 72 QRSD: 93 T: 67 QT: 371 QTc: 430 Interpretive Statements SINUS RHYTHM WITH FIRST DEGREE AV BLOCK WITH OCCASIONAL VENTRICULAR PREMATURE COMPLEXES INCOMPLETE RIGHT BUNDLE BRANCH BLOCK [90+ ms QRS DURATION, TERMINAL R IN V1/V2, 40+ ms S IN I/aVL/V4/V5/V6] SEPTAL MYOCARDIAL INFARCTION , OF INDETERMINATE AGE [40+ ms Q WAVE IN V1/V2] Compared to ECG 12/28/2021 14:59:24 Ventricular premature complex(es) now present First degree AV block now present ST (T wave) deviation now present Electronically Signed On 01-16-2022 15:45:41 CDT by Brian Davis M.D. [id number]
--- NOTE | 2022-01-15 13:26 | PC.NURSE ---
[facility] but pt states he has a hx of tremors. Also has low O2 sats , decreased lung sounds in lower lobes. Family wanted sent for possible CO2 increased Admitted to [facility] 01/05/22, arrived with Right arm swollen and bilateral feet swelling.
[2022-01-15 13:31] LABS: ABG PH Result 7.31 (7.35-7.45); Alveolar-Arterial Oxygen Gradi 6.4 mmHg (5-10); Arterial Blood Gas Hematocrit 39.8 % (42-52); Blood Gas Allen Test Pos; Blood Gas Operator Identificat GD; Blood Gas Sample Site Radial, left; Blood Gas Sample Type Arterial; Carboxyhemoglobin 2.8 %THgb (0.4-20.1); HCO3 ABG 48.1 mmol/L (22-26); HGB O2 Sat 89.2 % (95-100); Ionized Calcium Level - ABG 1.2 mmol/L (1.1-1.4); Methemoglobin 0.9 % (0.4-1.5); Oxygen Device NC; Oxygen Saturation ABG 92.7; Potassium Level - ABG 4.3 mmol/L (3.5-5.0)
[2022-01-15 13:33] LABS: ABG PCO2 96.4 mmHg (35-45)
[2022-01-15 14:14] LABS: Basophils # 0.1 10^3/uL (0.0-0.1); Basophils % 0.6 %; Eosinophils % 0.3 %; Hematocrit 43.2 % (42.0-52.0); Hemoglobin 13.4 g/dL (11.7-16.6); Lymphocytes # 0.5 10^3/uL (0.8-4.8); Lymphocytes % 3.7 %; Mean Corpuscular Hemoglobin 29.5 pg (28.0-34.0); Mean Corpuscular Volume 94.9 fl (80-94); Mean Platelet Volume 11.2 fL (7.4-10.4); Monocytes # 0.4 10^3/uL (0.2-0.9); Monocytes % 2.9 %; Neutrophils # 11.13 10^3/uL (1.8-7.7); Nucleated Red Blood Cells % 0 %; Platelet Count 221 10^3/cmm (130-400); Red Blood Count 4.55 10^6/uL (4.1-5.3); White Blood Count 12.2 10^3/uL (4.0-10.0)
--- NOTE | 2022-01-15 15:03 | PC.NURSE ---
report to [facility] nurse patient to be transported via bed with RT
[2022-01-15 15:47] LABS: Blood Urea Nitrogen 29 mg/dL (8-23); Calcium 8.4 mg/dL (8.5-10.5); Carbon Dioxide 39 mmol/L (22-29); Chloride 97 mmol/L (98-107); Glomerular Filtration Rate 97.3 mL/min (90-130); Glucose 162 mg/dL (65-115); NT Pro B Type Natriuretic Pept 2593 pg/mL (0-125); Osmolality Calculated 309 mOsm/kg (285-295); Sodium 145 mmol/L (136-145)
--- NOTE | 2022-01-15 16:42 | PM.HP ---
Providers/Chief Complaint Admitting Physician: Tony Cruz MD Primary Care Provider: Nasreen Gomez Chief Complaint: AMS; LOW O2 SATS History of Present Illness Most of the history taken through chart review and conversation with sister at bedside. Nagi Cuellar is a 66 year old male with a past medical history of advanced COPD, on home O2, home BiPAP, diastolic heart failure, atrial fibrillation, CAD, sleep apnea, insulin-dependent type 2 diabetes mellitus, hypertension, history of Covid infection, history of GI bleed not on anticoagulation has had recurrent hospitalizations in the last 4 months for SOB 2/2 COPD and CHF exacerbation, intubated on on previous admission. He was discharged on 01/05 to SNF. Present to the ER again today,?because of altered mental status. As per the family at bedside patient had fallen few days ago and then they went to check up on him today he was sitting up at the edge of the bed without includes, confused in pool of urine. On presentation to the ER he was found to be hypercapnic with CO2 of more than 97 so he was placed on BiPAP. On my examination patient is still on BiPAP, arousable and able to have slight conversation, following commands. Review of Systems General: Reports: ROS unobtainable due to mental status Medications/Allergies Home Medications Medication Instructions Recorded Confirmed Last Taken Type omeprazole 40 mg capsule,delayed 40 mg PO QAM 07/18/21 01/15/22 11/02/21 History release sitagliptin 50 mg tablet (Januvia) 50 mg PO QAM tab 07/23/21 01/15/22 11/02/21 History Vitamin B12 Gummies 1 - 2 tab PO DAILY 08/02/21 01/15/22 11/02/21 History aspirin 81 mg tablet,delayed 81 mg PO QAM 08/12/21 01/15/22 11/02/21 History release rosuvastatin 20 mg tablet 10 mg PO DAILY 10/01/21 01/15/22 11/01/21 History revefenacin 175 mcg/3 mL solution 175 mcg (3 mL) INHALATION DAILY 10/15/21 01/15/22 11/02/21 Rx for nebulization (Yupelri) #90 ml formoterol fumarate 20 mcg/2 mL 2 ml INHALATION BID #120 ml 12/01/21 01/15/22 Unknown Rx solution for nebulization (Perforomist) potassium chloride 20 mEq 20 meq PO DAILY 12/01/21 01/15/22 Unknown History tablet,extended release(part/cryst) amiodarone 200 mg tablet (Pacerone) 200 mg PO DAILY 12/16/21 01/15/22 Unknown History amlodipine 5 mg tablet 5 mg PO DAILY #30 tab 12/24/21 01/15/22 Unknown Rx insulin glargine 100 unit/mL (3 15 unit (0.15 mL) SUBCUT BEDTIME 12/24/21 01/15/22 12/27/21 Rx mL) subcutaneous pen (Lantus #0 ml 20 units Solostar U-100 Insulin) losartan 50 mg tablet 75 mg PO DAILY #45 tab 12/24/21 01/15/22 Unknown Rx metoprolol tartrate 25 mg tablet 25 mg PO BID@0900,2100 #60 tab 12/24/21 01/15/22 Unknown Rx methimazole 5 mg tablet 2.5 mg PO QAM 12/28/21 01/15/22 Unknown History benzocaine 15 mg-menthol 2.6 mg 1 jack MUCOUS MEMBRANE Q4H PRN #16 01/05/22 01/15/22 Unknown Rx lozenges (Cepacol Sore Throat ea (benzocaine-menthol)) albuterol sulfate 2.5 mg INHALATION Q6H PRN 01/15/22 01/15/22 Unknown History bisacodyl 10 mg rectal suppository 10 mg ID DAILY PRN 01/15/22 01/15/22 Unknown History empagliflozin 25 mg tablet 25 mg PO DAILY 01/15/22 01/15/22 Unknown History (Jardiance) furosemide 40 mg tablet (Lasix) 60 mg PO BID 01/15/22 01/15/22 Unknown History ipratropium 20 mcg-albuterol 100 1 puff INHALATION QID 01/15/22 01/15/22 Unknown History mcg/actuation mist for inhalation magnesium hydroxide 400 mg/5 mL 30 ml PO DAILY PRN 01/15/22 01/15/22 Unknown History oral suspension (Milk of Magnesia) sodium phosphates 19 gram-7 118 ml ID DAILY PRN 01/15/22 01/15/22 Unknown History gram/118 mL enema (Fleet Enema) trazodone 100 mg tablet 100 mg PO BEDTIME 01/15/22 01/15/22 Unknown History Allergies Allergy/AdvReac Type Severity Reaction Status Date / Time No Known Allergies Allergy Verified 01/15/22 13:07 PFSH Acute PFSH: Medical History (Updated 01/15/22 @ 16:43 by Tony Cruz MD) Acute on chronic respiratory failure with hypoxia and hypercapnia Atrial fibrillation paroxysmal long-standing; not on anticoagulation due to history GI bleed 2018 while on eliquis BMI 30.0-30.9,adult CAD (coronary artery disease) CHF (congestive heart failure) 12/05/2021 EF 65% with grade 1 diastolic dysfunction Chronic kidney disease, stage II (mild) Chronic respiratory failure with hypoxia COPD (chronic obstructive pulmonary disease) Gold Class D, centrolobular Cor pulmonale COVID-19 (~09/2021) Diabetes Diabetes mellitus, type II GERD (gastroesophageal reflux disease) History of Khan's palsy History of GI bleed (~2018) While on eliquis History of PFTs 03/2020 obstructive and restrictive components described History of sleep study (~2012) Hyperlipidemia Hypertension Hyperthyroidism Nicotine addiction Noncompliance On home oxygen therapy 5L DAYNE (obstructive sleep apnea) Uses bilevel positive airway pressure (BPAP) ventilation at home Surgical History H/O hernia repair (~2015) ventral incisional with repair x 2, in 2015 with mesh and lysis of adhesions History of cardiac catheterization (~07/2021) patent stent per report History of colonoscopy History of coronary artery stent placement x 2 LAD (2005, 2010) History of endoscopy small bowel capsule History of esophagogastroduodenoscopy (EGD) Family History Mother Lung disease COPD Sister Cancer Social History Smoking and tobacco status: current some day smoker cigarettes Years cigarettes smoked: 47 [ Other cigarette details: Hx of 2PPD x 47 Years] Second hand smoke exposure: Yes Alcohol intake: current Alcohol intake frequency: holidays/special occasions only Caregiver/support person: Yes Lives independently: Yes Housing: Care Home Marital status: Single Current occupational status: disabled and 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 Current gender identity: Male Vitals/I&O/Wt Last Vital Signs Temp 98.9 F 01/15/22 13:07 Pulse 72 01/15/22 14:58 Resp 29 H 01/15/22 14:36 BP 93/64 01/15/22 14:36 Pulse Ox 99 01/15/22 14:58 Weight last 48 hrs Weight 96.343 kg Weight 79.379 kg Physical Exam Narrative: General: No acute distress, awake, arousable on BiPAP HEENT: PERRLA, pupils bilaterally equal and reactive Chest: Bilateral bronchial breath sounds, coarse crackles diffuse with rhonchi all over the lung [place], equal good air entry bilaterally CVS: S1-S2 regular, no murmurs, no tachycardia, no gallops, no rubs Abdomen: Soft, nontender, no organomegaly, bowel sounds present Neuro: No focal deficits, no facial deformity, AO x3, power 5/5 in all limbs Extremities bilateral 1+ edema Data : 01/16/22 04:58 01/16/22 04:58 A&P Assessment and plan (1) Acute on chronic respiratory failure with hypercapnia: Status: Acute (2) COPD (chronic obstructive pulmonary disease): Status: Acute Qualifiers: COPD type: COPD with acute exacerbation Qualified Code(s): J44.1 - Chronic obstructive pulmonary disease with (acute) exacerbation (3) CHF (congestive heart failure): Status: Acute (4) Cor pulmonale: Status: Acute (5) Noncompliance: Status: Acute Plan Acute on chronic hypoxic and hypercapnic respiratory failure: Continue BiPAP ventilation. Repeat ABG in 1 hour.? Patient baseline carbon dioxide 60-65. Most likely secondary COPD exacerbation. DuoNeb 6-hour comparison IVAD. For now hold off on Solu-Medrol. For history of congestive heart failure: Echocardiogram done in November 07 showed a normal EF with grade 1 diastolic dysfunction, normal RVSP. Decrease dose of Lasix to 40 mg twice daily. Strict input output charting, daily weights. Fluid restriction up to 1500 cc. Having contraction alkalosis. Add acetazolamide 125 mg daily to decrease dose of Lasix. Could be playing a part in retention of CO2 leading to hypercapnia along with noncompliance to BiPAP. Oxygen supplementation keeping saturation over 88%.? BiPAP nightly. Pneumonia less likely.? Check procalcitonin. Recent MRSA negative. Check sputum culture, blood culture. Recent urine Legionella bacterial antigen negative. For now hold off on starting on antibiotics. If gets febrile will start on antibiotics and check for COVID-19. Atrial fibrillation: Continue with home dose of amiodarone and metoprolol. Not on anticoagulation because of GI bleed in the past. Hypertension: Goal blood pressure less than 140/90 mmHg. Blood pressure slightly on the lower side. Continue with losartan with a lower dose of 50 mg daily. Hold off on amlodipine. Type 2 diabetes mellitus: A1c 7.2. Continue home dose of Lantus. Insulin sliding scale at low-dose protocol. Continue other chronic home medications. CODE STATUS: Full code. Lovenox for DVT prophylaxis. Protonix for PUD prophylaxis. Carb consistent mechanical soft diet. Attestations Medical Necessity Statement*: Admission for more than 2 midnights for management of acute on chronic hypoxic hypercapnic respiratory failure secondary to COPD exacerbation, noncompliance to BiPAP Time Spent in Patient Care: Greater than 35 minutes Coding Level of Care Code Acute Od Grinder Operator for [place] Morin Diagnoses Acute on chronic respiratory failure with hypercapnia J96.22 COPD (chronic obstructive pulmonary disease) J44.1 COPD type: COPD with acute exacerbation CHF (congestive heart failure) I50.9 Cor pulmonale I27.81 Noncompliance Z91.19
[2022-01-15 16:52] LABS: ABG PH Result 7.34 (7.35-7.45); Alveolar-Arterial Oxygen Gradi 10.5 mmHg (5-10); Arterial Blood Gas Hematocrit 36.1 % (42-52); Base Excess ABG 17.3 mmol/L (-2.0-2.0); Blood Gas Allen Test Pos; Blood Gas Sample Site Radial, right; Blood Gas Sample Type Arterial; Carboxyhemoglobin 2.6 %THgb (0.4-20.1); HCO3 ABG 47.1 mmol/L (22-26); HGB O2 Sat 88.8 % (95-100); Ionized Calcium Level - ABG 1.2 mmol/L (1.1-1.4); Oxygen Device BIPAP; Oxygen Saturation ABG 92.1; PO2 ABG 66.2 mmHg (80.0-100.0); Potassium Level - ABG 4.3 mmol/L (3.5-5.0); Total Hemoglobin 11.8 g/dL (14-18)
[2022-01-15 17:05] LABS: ABG PCO2 88.3 mmHg (35-45)
[2022-01-15 17:29] LABS: Glucose Point of Care 141 mg/dL (70-110)
[2022-01-15] MEDS: enoxaparin 40 mg/0.4 mL Syringe SUBCUT (17:59)
[2022-01-15] MEDS: ferrous gluconate 324 mg Tablet PO (17:59)
[2022-01-15] MEDS: FUROsemide 40 mg Tablet PO (17:59)
--- NOTE | 2022-01-15 18:23 | PC.NURSE ---
received into room 107 from er via stretcher at 1530.bipap settings 70/10,35%.pt is drowsy but easily awakened.sr on monitor.muscle twithes noted.instructed to notify staff if must get up out of bed,has sob,pain,or for any concerns at all.bed alarm set.
--- NOTE | 2022-01-15 19:11 | PC.NURSE ---
pt incontinent of a large amt of urine.unable to measure or collect specimen
[2022-01-15] MEDS: budesonide 0.5 mg/2 mL Neb INHALATION (20:36)
[2022-01-15] MEDS: ipratropium-albuterol 3 mL Neb INHALATION (20:36)
[2022-01-15] MEDS: sennosides 8.6 mg Tablet 17.2 MG PO (20:57)
[2022-01-15] MEDS: trazodone 100 mg Tablet PO (20:57)
[2022-01-15] MEDS: atorvastatin 40 mg Tablet 80 MG PO (20:57)
[2022-01-15] MEDS: metoprolol tartrate 25 mg Tablet PO (20:58)
[2022-01-15] MEDS: insulin glargine 100 units/1 mL 15 UNIT SUBCUT (20:58)
[2022-01-15 21:19] LABS: Glucose Point of Care 175 mg/dL (70-110)
[2022-01-16] VITALS (32 sets, daily range): BP systolic 105–135; BP diastolic 55–78; PULSE 44–75; RESP 16–30; TEMP 36.1–36.8; O2SAT 89–100; BMI 35.3
[2022-01-16] MEDS: ipratropium-albuterol 3 mL Neb INHALATION ×4 (04:03→20:55)
[2022-01-16 05:19] LABS: Basophils # 0.1 10^3/uL (0.0-0.1); Basophils % 0.9 %; Eosinophils # 0.1 10^3/uL (0.0-0.8); Hematocrit 38.8 % (42.0-52.0); Hemoglobin 11.8 g/dL (11.7-16.6); Lymphocytes # 0.9 10^3/uL (0.8-4.8); Lymphocytes % 12.3 %; Mean Corpuscular HGB Conc 30.4 g/dL (30.0-36.0); Mean Corpuscular Hemoglobin 28.6 pg (28.0-34.0); Mean Corpuscular Volume 93.9 fl (80-94); Mean Platelet Volume 10.6 fL (7.4-10.4); Monocytes # 0.6 10^3/uL (0.2-0.9); Neutrophils # 5.18 10^3/uL (1.8-7.7); Neutrophils % 75.2 %; Nucleated Red Blood Cells % 0 %; Platelet Count 211 10^3/cmm (130-400); Red Blood Count 4.13 10^6/uL (4.1-5.3); Red Cell Distribution Width 17.6 % (12.1-15.1); White Blood Count 6.9 10^3/uL (4.0-10.0)
[2022-01-16 05:37] LABS: Alanine Aminotransferase 18 U/L (0-41); Albumin Level 3.3 g/dL (3.5-5.2); Alkaline Phosphatase 62 IU/L (40-130); Anion Gap 7.2 (5-19); Aspartate Amino Transferase 10 U/L (0-40); Blood Urea Nitrogen 31 mg/dL (8-23); Calcium 9.1 mg/dL (8.5-10.5); Chloride 95 mmol/L (98-107); Globulin 2.4 g/dL (1.3-4.6); Glomerular Filtration Rate 97.3 mL/min (90-130); Glucose 84 mg/dL (65-115); Osmolality Calculated 302 mOsm/kg (285-295); Potassium 4.2 mmol/L (3.5-5.1); Sodium 143 mmol/L (136-145); Total Bilirubin 0.2 mg/dL (0.15-1.2); Total Protein 5.7 g/dL (6.6-8.7)
[2022-01-16 05:40] LABS: Magnesium 1.9 mg/dL (1.7-2.3); Phosphorus 3.6 mg/dL (2.5-4.5)
[2022-01-16 05:46] LABS: Carbon Dioxide 45 mmol/L (22-29)
[2022-01-16] MEDS: methIMAzole 5 MG Tablet 2.5 MG PO (06:00)
[2022-01-16] MEDS: aspirin 81 mg EC Tablet PO (06:00)
[2022-01-16] MEDS: pantoprazole DR 40 mg Tablet PO (06:00)
--- NOTE | 2022-01-16 06:00 | XRR_ITS ---
PROCEDURE INFORMATION: Exam: XR Chest Exam date and time: 01/16/2022 6:00 AM Age: 66 years old Clinical indication: Shortness of breath; Additional info: Covid TECHNIQUE: Imaging protocol: XR of the chest. Views: 1 view. COMPARISON: CR (CHEST, ) 01/15/2022 1:50 PM FINDINGS: Lungs: Stable-mild interval increase in Bibasilar opacities are concerning for pneumonia. Pleural spaces: Unremarkable. No pleural effusion. No pneumothorax. Heart/Mediastinum: Unremarkable. No cardiomegaly. Bones/joints: Unremarkable. XR/XR chest 1V portable [id number] IMPRESSION: Stable-mild interval increase in Bibasilar opacities are concerning for pneumonia.
[2022-01-16 07:03] LABS: Glucose Point of Care 135 mg/dL (70-110)
[2022-01-16 07:24] LABS: ABG PH Result 7.43 (7.35-7.45); Arterial Blood Gas Hematocrit 35.6 % (42-52); Base Excess ABG 19.8 mmol/L (-2.0-2.0); Blood Gas Allen Test Pos; Blood Gas Sample Site Radial, left; Blood Gas Sample Type Arterial; Carboxyhemoglobin 1.9 %THgb (0.4-20.1); HCO3 ABG 47.9 mmol/L (22-26); HGB O2 Sat 86.7 % (95-100); Ionized Calcium Level - ABG 1.2 mmol/L (1.1-1.4); Oxygen Device BIPAP; Oxygen Saturation ABG 89.2; PO2 ABG 56.8 mmHg (80.0-100.0); Potassium Level - ABG 3.5 mmol/L (3.5-5.0); Total Hemoglobin 11.6 g/dL (14-18)
[2022-01-16 07:25] LABS: Alveolar-Arterial Oxygen Gradi 9.2 mmHg (5-10)
[2022-01-16 07:36] LABS: Add Urine Microscopic? YES; Bilirubin Urine Neg (Negative); Blood Urine Neg (Negative); Glucose Urine UA 4+ (Normal); Ketones Urine Negative (Negative); Leukocyte Esterase Urine Negative (Negative); Nitrate Urine Negative (Negative); Protein Urine 1+ (Negative); Urine Appearance Clear (CLEAR); Urine Color Yellow (Yellow); Urobilinogen Urine Norm (Negative); pH Urine 5 (5-7)
[2022-01-16 07:38] LABS: Add Urine Culture? No; Mucus Urine TRACE /hpf
[2022-01-16] MEDS: budesonide 0.5 mg/2 mL Neb INHALATION ×2 (08:54→20:55)
[2022-01-16] MEDS: ferrous gluconate 324 mg Tablet PO ×2 (09:22→18:15)
[2022-01-16] MEDS: acetaZOLAMIDE 250 mg Tablet 125 MG PO (09:23)
[2022-01-16] MEDS: FUROsemide 40 mg Tablet PO ×2 (09:24→18:15)
[2022-01-16] MEDS: metoprolol tartrate 25 mg Tablet PO ×2 (09:25→20:01)
[2022-01-16] MEDS: amiodarone 200 mg Tablet PO (09:26)
[2022-01-16] MEDS: losartan 50 mg Tablet PO (09:26)
[2022-01-16] MEDS: nicotine 21 mg Patch 1 PATCH TRANSDERMA (09:28)
--- NOTE | 2022-01-16 09:41 | P.PN_ITS ---
Subjective Subjective: No complaints overnight. Patient is a lot more awake and alert. Transitioned over to nasal cannula during my examination today. Patient states he is not been using the BiPAP and is at the group home. Asking if he can find out if his home BiPAP has been fixed. Vitals/I&O/Wt Last Vital Signs Temp 97.0 F L 01/16/22 04:10 Pulse 71 01/16/22 09:03 Resp 17 01/16/22 09:03 BP 118/57 01/16/22 09:26 Pulse Ox 98 01/16/22 09:03 01/15/22 01/16/22 01/16/22 21:59 06:59 14:59 Intake Total Output Total Balance Weight last 48 hrs Weight 96.252 kg Weight 96.343 kg Weight 79.379 kg Physical Exam Narrative: General: No acute distress, AOx3, on nasal cannula HEENT: PERRLA, pupils bilaterally equal and reactive Chest: Bilateral bronchial breath sounds, coarse crackles diffuse with rhonchi all over the lung [place], equal good air entry bilaterally CVS: S1-S2 regular, no murmurs, no tachycardia, no gallops, no rubs Abdomen: Soft, nontender, no organomegaly, bowel sounds present Neuro: No focal deficits, no facial deformity, AO x3, power 5/5 in all limbs Extremities bilateral 1+ edema Data : 01/16/22 04:58 01/16/22 04:58 Micro: Microbiology 01/15/22 18:55 Blood Culture - Preliminary Blood SPECIMEN COLLECTED 01/15/22 18:48 Blood Culture - Preliminary Blood SPECIMEN COLLECTED A&P Assessment and plan (1) Acute on chronic respiratory failure with hypercapnia: Status: Acute (2) COPD (chronic obstructive pulmonary disease): Status: Acute Qualifiers: COPD type: COPD with acute exacerbation Qualified Code(s): J44.1 - Chronic obstructive pulmonary disease with (acute) exacerbation (3) CHF (congestive heart failure): Status: Acute (4) Cor pulmonale: Status: Acute (5) Noncompliance: Status: Acute Plan Acute on chronic hypoxic and hypercapnic respiratory failure: Continue BiPAP ventilation. Repeat ABG in 1 hour.? Patient baseline carbon dioxide 60-65. Most likely secondary COPD exacerbation. DuoNeb 6-hour comparison IVAD. For now hold off on Solu-Medrol. #Congestive heart failure #Contraction alkalosis: Echocardiogram done in November 07 showed a normal EF with grade 1 diastolic dysfunction, normal RVSP. Continue with Lasix 40 mg twice daily, acetazolamide 125 mg daily. Strict input output charting, daily weights. Fluid restriction up to 1500 cc. Having contraction alkalosis. Add acetazolamide 125 mg daily to decrease dose of Lasix. Could be playing a part in retention of CO2 leading to hypercapnia along with noncompliance to BiPAP. Oxygen supplementation keeping saturation over 88%.? BiPAP nightly. Pneumonia less likely.? Check procalcitonin. Recent MRSA negative. Check sputum culture, blood culture. Recent urine Legionella bacterial antigen negative. For now hold off on starting on antibiotics. If gets febrile will start on antibiotics and check for COVID-19. Atrial fibrillation: Continue with home dose of amiodarone and metoprolol. Not on anticoagulation because of GI bleed in the past. Hypertension: Goal blood pressure less than 140/90 mmHg. Blood pressure slightly on the lower side. Continue with losartan with a lower dose of 50 mg daily. Hold off on amlodipine. Type 2 diabetes mellitus: A1c 7.2. Continue home dose of Lantus. Insulin sliding scale at low-dose protocol. Continue other chronic home medications. CODE STATUS: Full code. Lovenox for DVT prophylaxis. Protonix for PUD prophylaxis. Carb consistent mechanical soft diet. 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
[2022-01-16 11:24] LABS: Glucose Point of Care 169 mg/dL (70-110)
[2022-01-16 16:55] LABS: Glucose Point of Care 206 mg/dL (70-110)
[2022-01-16] MEDS: enoxaparin 40 mg/0.4 mL Syringe SUBCUT (18:15)
[2022-01-16] MEDS: sennosides 8.6 mg Tablet 17.2 MG PO (20:01)
[2022-01-16] MEDS: atorvastatin 40 mg Tablet 80 MG PO (20:01)
[2022-01-16] MEDS: insulin glargine 100 units/1 mL 15 UNIT SUBCUT (20:27)
[2022-01-16 20:39] LABS: Glucose Point of Care 282 mg/dL (70-110)
[2022-01-16] MEDS: trazodone 100 mg Tablet PO (23:12)
--- NOTE | 2022-01-16 23:34 | PC.NURSE ---
During assessment patient expressed his wish to Not return to [place]. He said he did not want to go back and his family did not want him to go back and he asked if there was anywhere else he could go. Will pass on to day shift nurse.
[2022-01-17] VITALS (23 sets, daily range): BP systolic 113–144; BP diastolic 60–85; PULSE 53–75; RESP 15–24; TEMP 36.1–36.8; O2SAT 90–97
[2022-01-17] MEDS: ipratropium-albuterol 3 mL Neb INHALATION ×4 (02:42→20:21)
[2022-01-17] MEDS: methIMAzole 5 MG Tablet 2.5 MG PO (05:12)
[2022-01-17] MEDS: aspirin 81 mg EC Tablet PO (05:12)
[2022-01-17] MEDS: pantoprazole DR 40 mg Tablet PO (05:13)
[2022-01-17 06:44] LABS: Glucose Point of Care 101 mg/dL (70-110)
[2022-01-17] MEDS: budesonide 0.5 mg/2 mL Neb INHALATION ×2 (08:19→20:21)
[2022-01-17] MEDS: amiodarone 200 mg Tablet PO (08:29)
[2022-01-17] MEDS: FUROsemide 40 mg Tablet PO ×2 (08:29→17:26)
[2022-01-17] MEDS: losartan 50 mg Tablet PO (08:29)
[2022-01-17] MEDS: ferrous gluconate 324 mg Tablet PO ×2 (08:29→17:25)
[2022-01-17] MEDS: acetaZOLAMIDE 250 mg Tablet 125 MG PO (08:29)
[2022-01-17] MEDS: metoprolol tartrate 25 mg Tablet PO ×2 (08:30→20:57)
[2022-01-17] MEDS: nicotine 21 mg Patch 1 PATCH TRANSDERMA (08:30)
--- NOTE | 2022-01-17 10:37 | PC.CHAP ---
Pastoral Care Encounter/Spiritual Assessment Type of Contact [] Declined lead quality technician visit [] Patient/Family/Request visit [] Outpatient visit [] Follow-up visit [] Physician referral [] Code/Alert [x] Routine visit [] Staff referral [] Actively dying [] Patient sleeping [] Family support [] [] Out of room [] Palliative care [] [] Receiving care in room [] Pre-surgical visit [] Trauma [] Long length of stay [] ICU visit [x] Other: isolated Relational/Emotional Strength [] Patient feels connected with others/family/visitors/staff [] Distress [] Loneliness/isolation [] Abandonment Spirituality of Patient [] Person of Margret [] Attends Church of their Margret [] Believes in Prayer [] Reads Bible or Taoism materials [] There are Spiritual issues to be addressed Rehabilitation Director Interventions [x] Prayer [] Active listening [] Non-anxious presence [] Spiritual/emotional support [] Crisis/trauma care [] Spiritual counseling [] Bereavement support [] Provided bereavement packet [] Provided Bible/devotional materials [] Provided toy/stuffed animal, coloring book to patient or family member [] Provided Communion [] Anointing/[place] [] Salvation [x] Completed spiritual assessment [] Other: Impact on Illness or Injury [] Angry [] Fearful [] Anxious [] Often cries [] Exhaustion [] Unable to work [] Unable to attend yazdanism [] Unable to walk/stand [] Unable to read [] Unable to drive [] Unable to eat/drink [] Unable to sleep [] Unable to be with family [] Patient intubated [] Other: Summary Time spent with patient
--- NOTE | 2022-01-17 10:38 | PC.CHAP ---
Pastoral Care Encounter/Spiritual Assessment Type of Contact [] Declined retail account executive visit [] Patient/Family/Request visit [] Outpatient visit [] Follow-up visit [] Physician referral [] Code/Alert [x] Routine visit [] Staff referral [] Actively dying [] Patient sleeping [] Family support [] [] Out of room [] Palliative care [] [x] Receiving care in room [] Pre-surgical visit [] Trauma [] Long length of stay [] ICU visit [] Other: Relational/Emotional Strength [] Patient feels connected with others/family/visitors/staff [] Distress [] Loneliness/isolation [] Abandonment Spirituality of Patient [] Person of Margret [] Attends Rastafarian of their Margret [] Believes in Prayer [] Reads Bible or Cheondoism materials [] There are Spiritual issues to be addressed Editorial Manager Interventions [x] Prayer [] Active listening [] Non-anxious presence [] Spiritual/emotional support [] Crisis/trauma care [] Spiritual counseling [] Bereavement support [] Provided bereavement packet [] Provided Bible/devotional materials [] Provided toy/stuffed animal, coloring book to patient or family member [] Provided Communion [] Anointing/[place] [] Salvation [x] Completed spiritual assessment [] Other: Impact on Illness or Injury [] Angry [] Fearful [] Anxious [] Often cries [] Exhaustion [] Unable to work [] Unable to attend taoism [] Unable to walk/stand [] Unable to read [] Unable to drive [] Unable to eat/drink [] Unable to sleep [] Unable to be with family [] Patient intubated [] Other: Summary Time spent with patient
[2022-01-17 11:46] LABS: Glucose Point of Care 502 mg/dL (70-110)
[2022-01-17 11:46] LABS: Glucose Point of Care 267 mg/dL (70-110)
[2022-01-17 16:20] LABS: Glucose Point of Care 167 mg/dL (70-110)
[2022-01-17] MEDS: enoxaparin 40 mg/0.4 mL Syringe SUBCUT (17:26)
--- NOTE | 2022-01-17 20:15 | P.PN_ITS ---
Subjective Subjective: Pt is doing better. SOB much less. Can ambulate to the toilet. Has some cough. Denies CP, f/c Vitals/I&O/Wt Last Vital Signs Temp 98 F 01/17/22 19:47 Pulse 75 01/17/22 20:00 Resp 20 H 01/17/22 20:00 BP 144/79 01/17/22 20:00 Pulse Ox 92 01/17/22 20:00 01/17/22 01/17/22 01/17/22 06:59 14:59 22:59 Intake Total 250 / 970 480 / 480 Output Total 600 / 2700 2120 / 2120 500 / 2620 Balance -350 / -1730 -1640 / -1640 -500 / -2140 Weight last 48 hrs Weight 95.708 kg Weight 96.252 kg Physical Exam Narrative: General: No acute distress, AOx3, on nasal cannula ADONAY NT: PERRLA, pupils bilaterally equal and reactive Ches t: Bilateral bronc hial breath sounds decreased basally , otherwise clear CVS: S1-S2 regular , no murmurs, no t achycardia, no gal lops, no rubs Abdo men: Soft, nontend er, no organomegal y, bowel sounds pr esent Neuro: No fo sg deficits, no f acial deformity, A O x3, power 5/5 in all limbs Extremi ties bilateral 1+ edema Data : 01/16/22 04:58 01/16/22 04:58 Micro: Microbiology 01/15/22 18:55 Blood Culture - Preliminary Blood NEGATIVE TO DATE 01/15/22 18:48 Blood Culture - Preliminary Blood NEGATIVE TO DATE A&P Assessment and plan (1) Acute on chronic respiratory failure with hypercapnia: Improved. At baseline Status: Acute (2) COPD (chronic obstructive pulmonary disease): Improving Status: Acute Qualifiers: COPD type: COPD with acute exacerbation Qualified Code(s): J44.1 - Chronic obstructive pulmonary disease with (acute) exacerbation (3) CHF (congestive heart failure): compensated Status: Acute (4) Cor pulmonale: Status: Acute (5) Noncompliance: Status: Acute Plan Acute on chronic hypoxic and hypercapnic respiratory failure: Continue BiPAP ventilation. Repeat ABG in 1 hour.? Patient baseline carbon dioxide 60-65. Most likely secondary COPD exacerbation. DuoNeb 6-hour comparison IVAD. For now hold off on Solu-Medrol. #Congestive heart failure #Contraction alkalosis:?Echocardiogram done in November 07 showed a normal EF with grade 1 diastolic dysfunction, normal RVSP. Continue with Lasix 40 mg twice daily, acetazolamide 125 mg daily. Strict input output charting, daily weights. Fluid restriction up to 1500 cc. Having contraction alkalosis.? Add acetazolamide 125 mg daily to decrease dose of Lasix.? Could be playing a part in retention of CO2 leading to hypercapnia along with noncompliance to BiPAP. Oxygen supplementation keeping saturation over 88%.? BiPAP nightly. Pneumonia less likely.? Check procalcitonin. Recent MRSA negative.? Check sputum culture, blood culture.? Recent urine Legionella bacterial antigen negative. For now hold off on starting on antibiotics.? If gets febrile will start on antibiotics and check for COVID-19. Atrial fibrillation: Continue with home dose of amiodarone and metoprolol. Not on anticoagulation because of GI bleed in the past. Hypertension: Goal blood pressure less than 140/90 mmHg. Blood pressure slightly on the lower side.? Continue with losartan with a lower dose of 50 mg daily.? Hold off on amlodipine.? Type 2 diabetes mellitus: A1c 7.2. Continue home dose of Lantus. Insulin sliding scale at low-dose protocol. Continue other chronic home medications. CODE STATUS: Full code. Lovenox for DVT prophylaxis. Protonix for PUD prophylaxis. Carb consistent mechanical soft diet. Continue current bronchodilator. Refer to SNF and transfer when bed available. Attestations Medical Necessity Statement*: Medical Necessity Statement*:?? 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
[2022-01-17 20:17] LABS: Glucose Point of Care 232 mg/dL (70-110)
[2022-01-17] MEDS: gabapentin 100 mg Capsule PO (20:57)
[2022-01-17] MEDS: atorvastatin 40 mg Tablet 80 MG PO (20:57)
[2022-01-17] MEDS: trazodone 100 mg Tablet PO (20:58)
[2022-01-17] MEDS: insulin glargine 100 units/1 mL 15 UNIT SUBCUT (21:01)
[2022-01-17 21:18] LABS: Glucose Point of Care 242 mg/dL (70-110)
[2022-01-18] VITALS (27 sets, daily range): BP systolic 98–125; BP diastolic 57–72; PULSE 57–91; RESP 12–22; TEMP 36.2–36.6; O2SAT 73–97; BMI 35.1
[2022-01-18] MEDS: ipratropium-albuterol 3 mL Neb INHALATION ×4 (03:00→20:15)
[2022-01-18] MEDS: aspirin 81 mg EC Tablet PO (05:18)
[2022-01-18] MEDS: methIMAzole 5 MG Tablet 2.5 MG PO (05:18)
[2022-01-18] MEDS: pantoprazole DR 40 mg Tablet PO (05:18)
--- NOTE | 2022-01-18 06:00 | XR_ITS ---
WS: [id number] XR chest 1V portable [id number] REASON FOR EXAM: covid FINDINGS: No significant interval change compared to 01/16/2022. Findings of bilateral small pleural effusions and lung consolidation in the lower lobes, atelectasis/ inflammatory infiltrates. No new findings. XR/XR chest 1V portable [id number] IMPRESSION: Stable abnormal chest.
[2022-01-18 07:22] LABS: Glucose Point of Care 92 mg/dL (70-110)
[2022-01-18] MEDS: budesonide 0.5 mg/2 mL Neb INHALATION ×2 (08:03→20:15)
[2022-01-18] MEDS: nicotine 21 mg Patch 1 PATCH TRANSDERMA (08:52)
[2022-01-18] MEDS: acetaZOLAMIDE 250 mg Tablet 125 MG PO (08:53)
[2022-01-18] MEDS: ferrous gluconate 324 mg Tablet PO ×2 (08:53→18:14)
[2022-01-18] MEDS: losartan 50 mg Tablet PO (08:53)
[2022-01-18] MEDS: amiodarone 200 mg Tablet PO (08:54)
[2022-01-18] MEDS: FUROsemide 40 mg Tablet PO ×2 (08:54→18:14)
[2022-01-18] MEDS: metoprolol tartrate 25 mg Tablet PO ×2 (08:54→21:10)
[2022-01-18] MEDS: FUROsemide 10 mg/mL SDV 2mL 20 MG IVP (09:40)
[2022-01-18 11:35] LABS: Glucose Point of Care 146 mg/dL (70-110)
--- NOTE | 2022-01-18 12:42 | P.PN_ITS ---
Subjective Subjective: Doing better. Has some CAMACHO and mild cough. Awaiting Vitals/I&O/Wt Last Vital Signs Temp 97.3 F L 01/19/22 07:33 Pulse 73 01/19/22 11:25 Resp 19 H 01/19/22 11:25 BP 121/77 01/19/22 11:25 Pulse Ox 96 01/19/22 11:25 01/18/22 01/19/22 01/19/22 22:59 06:59 14:59 Intake Total 340 / 1053 100 / 1153 Output Total 800 / 2200 400 / 2600 1150 / 1150 Balance -460 / -1147 -300 / -1447 -1150 / -1150 Weight last 48 hrs Weight 95.708 kg Weight 95.708 kg Physical Exam Narrative: NAD CVS: S1S2, RRR, Mur (-) Resp Few Exp Rhonchi Decrease BS basally Abd: soft, NT, BS. Edema 1+ MINER ASSISTANT: A&Ox4+ Data : 01/16/22 04:58 01/16/22 04:58 A&P Assessment and plan (1) Acute on chronic respiratory failure with hypercapnia: Status: Acute (2) COPD (chronic obstructive pulmonary disease): Status: Acute Qualifiers: COPD type: COPD with acute exacerbation Qualified Code(s): J44.1 - Chronic obstructive pulmonary disease with (acute) exacerbation (3) Cor pulmonale: Status: Acute (4) CHF (congestive heart failure): Status: Acute (5) Hyperlipidemia: Status: Chronic (6) Noncompliance: Status: Acute Plan Plan Acute on chronic hypoxic and hypercapnic respiratory failure: Continue BiPAP ventilation. Repeat ABG in 1 hour.? Patient baseline carbon dioxide 60-65. Most likely secondary COPD exacerbation. DuoNeb 6-hour comparison IVAD. For now hold off on Solu-Medrol. #Congestive heart failure #Contraction alkalosis:?Echocardiogram done in November 07 showed a normal EF with grade 1 diastolic dysfunction, normal RVSP. Continue with Lasix 40 mg twice daily, acetazolamide 125 mg daily. Strict input output charting, daily weights. Fluid restriction up to 1500 cc. Having contraction alkalosis.? Add acetazolamide 125 mg daily to decrease dose of Lasix.? Could be playing a part in retention of CO2 leading to hypercapnia along with noncompliance to BiPAP. Now compensated Oxygen supplementation keeping saturation over 88%.? BiPAP nightly. Pneumonia less likely.? Check procalcitonin. Recent MRSA negative.? Check sputum culture, blood culture.? Recent urine Legionella bacterial antigen negative. For now hold off on starting on antibiotics.? If gets febrile will start on antibiotics and check for COVID-19. Atrial fibrillation: Continue with home dose of amiodarone and metoprolol. Not on anticoagulation because of GI bleed in the past. Hypertension: Goal blood pressure less than 140/90 mmHg. Blood pressure slightly on the lower side.? Continue with losartan with a lower dose of 50 mg daily.? Hold off on amlodipine.? Type 2 diabetes mellitus: A1c 7.2. Continue home dose of Lantus. Insulin sliding scale at low-dose protocol. Continue other chronic home medications. CODE STATUS: Full code. Lovenox for DVT prophylaxis. Protonix for PUD prophylaxis. Carb consistent mechanical soft diet. Continue current bronchodilato. SNF requested Attestations Medical Necessity Statement*: Pt here w/ Ac CHF, Ac COPD Ac on Chr Resp Failure. Clinically improving. Will need SNF placement. 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
[2022-01-18 16:17] LABS: Glucose Point of Care 138 mg/dL (70-110)
[2022-01-18] MEDS: enoxaparin 40 mg/0.4 mL Syringe SUBCUT (18:14)
[2022-01-18 20:05] LABS: Glucose Point of Care 262 mg/dL (70-110)
[2022-01-18] MEDS: gabapentin 100 mg Capsule PO (21:10)
[2022-01-18] MEDS: atorvastatin 40 mg Tablet 80 MG PO (21:10)
[2022-01-18] MEDS: trazodone 100 mg Tablet PO (21:11)
[2022-01-18] MEDS: insulin glargine 100 units/1 mL 15 UNIT SUBCUT (21:12)
[2022-01-19] VITALS (12 sets, daily range): BP systolic 95–142; BP diastolic 64–77; PULSE 63–107; RESP 14–19; TEMP 36.2–36.3; O2SAT 92–96
[2022-01-19] MEDS: ipratropium-albuterol 3 mL Neb INHALATION ×3 (03:06→14:13)
[2022-01-19 06:33] LABS: Glucose Point of Care 143 mg/dL (70-110)
[2022-01-19] MEDS: methIMAzole 5 MG Tablet 2.5 MG PO (06:39)
[2022-01-19] MEDS: pantoprazole DR 40 mg Tablet PO (06:39)
[2022-01-19] MEDS: aspirin 81 mg EC Tablet PO (06:39)
--- NOTE | 2022-01-19 07:22 | PC.NURSE ---
Bedside report received from CARLITOS Ames. Patient is sleeping with even and unlabored breathing. Nurse will continue to monitor.
[2022-01-19] MEDS: acetaZOLAMIDE 250 mg Tablet 125 MG PO (08:47)
[2022-01-19] MEDS: losartan 50 mg Tablet PO (08:47)
[2022-01-19] MEDS: ferrous gluconate 324 mg Tablet PO (08:47)
[2022-01-19] MEDS: metoprolol tartrate 25 mg Tablet PO (08:48)
[2022-01-19] MEDS: nicotine 21 mg Patch 1 PATCH TRANSDERMA (08:48)
[2022-01-19] MEDS: amiodarone 200 mg Tablet PO (08:48)
[2022-01-19] MEDS: FUROsemide 40 mg Tablet PO (08:48)
[2022-01-19] MEDS: budesonide 0.5 mg/2 mL Neb INHALATION (08:54)
--- NOTE | 2022-01-19 10:13 | PC.NURSE ---
urine output is from some time last night at the patient has not yet used the commode today.
[2022-01-19 11:31] LABS: Glucose Point of Care 246 mg/dL (70-110)
--- NOTE | 2022-01-19 14:16 | PM.DCS ---
Discharge Providers Date of Admission: 01/15/22 16:39 Date of Discharge: January 19, 2022 Attending Provider at Admission: Tony Cruz MD Attending Provider at Discharge: Meet Cortez MD Primary Care Provider: Nasreen Gomez Diagnoses at Discharge Discharge Diagnosis (1) Acute on chronic respiratory failure with hypercapnia: Status: Acute (2) COPD (chronic obstructive pulmonary disease): Status: Acute Qualifiers: COPD type: COPD with acute exacerbation Qualified Code(s): J44.1 - Chronic obstructive pulmonary disease with (acute) exacerbation Permanent problem details: Gold Class D, centrolobular (3) Cor pulmonale: Status: Acute (4) CHF (congestive heart failure): Status: Acute Permanent problem details: 12/05/2021 EF 65% with grade 1 diastolic dysfunction (5) Hyperlipidemia: Status: Chronic (6) Noncompliance: Status: Acute Reason for Visit Reason for Visit: AMS; LOW O2 SATS Hospital Course Hospital Course ?Here of the history taken through chart review and conversation with sister at bedside. Nagi Cuellar is a 66 year old male with a past medical history of advanced COPD, on home O2, home BiPAP, diastolic heart failure, atrial fibrillation, CAD, sleep apnea, insulin-dependent type 2 diabetes mellitus, hypertension, history of Covid infection, history of GI bleed not on anticoagulation has had recurrent hospitalizations in the last 4 months for SOB 2/2 COPD and CHF exacerbation, intubated on on previous admission.? He was discharged on 01/05 to SNF. Present to the ER again today,?because of altered mental status.? As per the family at bedside patient had fallen few days ago and then they went to check up on him today he was sitting up at the edge of the bed without includes, confused in pool of urine.? On presentation to the ER he was found to be hypercapnic with CO2 of more than 97 so he was placed on BiPAP.? On my examination patient is still on BiPAP, arousable and able to have slight conversation, following commands. Pt was admitted to [facility]/ His respiratory status improved w/ BiPaP at night time and bronchodilators. Hypotension corrected by adjusting his BP meds. He has deconditioning physical tolerance. Pt refused to retorn to his prior SNF and awere not able to locate another SNF who would accept him. He will be d/c home w/ HH and PT/OT. He will continue w/ Home O2 and BiPaP use at night. Compliance stressed. Physical Exam Narrative: NAD CVS: S1S2, RRR, Mur (-) Resp Decrease BS basally, otherwise clear Abd: soft, NT, BS. Edema 1+ OFFICE MAIL CLERK: A&Ox4+ Discharge Data Studies Completed and Pending Completed Studies During Hospitalization Category Date Time Status XR chest 1V portable [id number] Q48H Exams 01/16/22 06:00 Completed XR chest 1V portable [id number] Q48H Exams 01/18/22 06:00 Completed XR chest 1V portable [id number] Stat Exams 01/15/22 13:26 Completed Pending at discharge Category Date Time Status XR chest 1V portable [id number] Q48H Exams 01/20/22 06:00 Ordered Blood Culture Stat Lab 01/15/22 18:55 Results Sputum Culture and Gram Stain Stat Lab 01/15/22 16:41 Uncollected Radiology Impressions Chest X-Ray 01/18/22 06:00 IMPRESSION: Stable abnormal chest. Laboratory Results WBC 6.9 10^3/uL (4.0-10.0) 01/16/22 04:58 RBC 4.13 10^6/uL (4.1-5.3) 01/16/22 04:58 Hgb 11.8 g/dL (11.7-16.6) 01/16/22 04:58 Hct 38.8 % (42.0-52.0) L 01/16/22 04:58 MCV 93.9 fl (80-94) 01/16/22 04:58 MCH 28.6 pg (28.0-34.0) 01/16/22 04:58 MCHC 30.4 g/dL (30.0-36.0) 01/16/22 04:58 RDW 17.6 % (12.1-15.1) H 01/16/22 04:58 Plt Count 211 10^3/cmm (130-400) 01/16/22 04:58 MPV 10.6 fL (7.4-10.4) H 01/16/22 04:58 Neut % (Auto) 75.2 % 01/16/22 04:58 Lymph % (Auto) 12.3 % 01/16/22 04:58 [place] % (Auto) 9.0 % 01/16/22 04:58 Eos % (Auto) 1.0 % 01/16/22 04:58 Baso % (Auto) 0.9 % 01/16/22 04:58 Neut # (Auto) 5.18 10^3/uL (1.8-7.7) 01/16/22 04:58 Lymph # (Auto) 0.9 10^3/uL (0.8-4.8) 01/16/22 04:58 [place] # (Auto) 0.6 10^3/uL (0.2-0.9) 01/16/22 04:58 Eos # (Auto) 0.1 10^3/uL (0.0-0.8) 01/16/22 04:58 Baso # (Auto) 0.1 10^3/uL (0.0-0.1) 01/16/22 04:58 Nucleated RBC % (auto) 0 % 01/16/22 04:58 Nucleated RBCs # 0.0 /100WBC 01/16/22 04:58 Specimen Type Arterial 01/16/22 07:15 Sample Site Radial, left 01/16/22 07:15 ABG pH 7.43 (7.35-7.45) 01/16/22 07:15 ABG pCO2 73.0 mmHg (35-45) H* 01/16/22 07:15 ABG pO2 56.8 mmHg (80.0-100.0) L 01/16/22 07:15 ABG HCO3 47.9 mmol/L (22-26) H 01/16/22 07:15 ABG O2 Saturation 89.2 01/16/22 07:15 ABG Base Excess 19.8 mmol/L (-2.0-2.0) H 01/16/22 07:15 Gee Test Pos 01/16/22 07:15 A-a O2 Gradient 9.2 mmHg (5-10) 01/16/22 07:15 Hematocrit 35.6 % (42-52) L 01/16/22 07:15 Hgb O2 Saturation 86.7 % (95-100) L 01/16/22 07:15 Carboxyhemoglobin 1.9 %THgb (0.4-20.1) 01/16/22 07:15 Methemoglobin 1.0 % (0.4-1.5) 01/16/22 07:15 Total Hemoglobin 11.6 g/dL (14-18) L 01/16/22 07:15 Sodium 144.0 mmol/L (131-143) H 01/16/22 07:15 Potassium 3.5 mmol/L (3.5-5.0) 01/16/22 07:15 Glucose 85.0 mg/dL (70-115) 01/16/22 07:15 Ionized Calcium 1.2 mmol/L (1.1-1.4) 01/16/22 07:15 O2 Delivery Device Bipap 01/16/22 07:15 O2 Liters/Min 3.0 % 01/15/22 13:15 FiO2 30.0 % 01/16/22 07:15 PEEP 10.0 cmH20 01/16/22 07:15 Assembler Flexible Leads ID James 01/16/22 07:15 Sodium 143 mmol/L (136-145) 01/16/22 04:58 Potassium 4.2 mmol/L (3.5-5.1) 01/16/22 04:58 Chloride 95 mmol/L (98-107) L 01/16/22 04:58 Carbon Dioxide 45 mmol/L (22-29) H* 01/16/22 04:58 Anion Gap 7.2 (5-19) 01/16/22 04:58 BUN 31 mg/dL (8-23) H 01/16/22 04:58 Creatinine 0.8 mg/dL (0.7-1.2) 01/16/22 04:58 GFR Calculation 97.3 mL/min (90-130) 01/16/22 04:58 Glucose 84 mg/dL (65-115) 01/16/22 04:58 POC Glucose 246 mg/dL (70-110) H 01/19/22 11:24 Calculated Osmolality 302 mOsm/kg (285-295) H 01/16/22 04:58 Calcium 9.1 mg/dL (8.5-10.5) 01/16/22 04:58 Phosphorus 3.6 mg/dL (2.5-4.5) 01/16/22 04:58 Magnesium 1.9 mg/dL (1.7-2.3) 01/16/22 04:58 Total Bilirubin 0.2 mg/dL (0.15-1.2) 01/16/22 04:58 AST 10 U/L (0-40) 01/16/22 04:58 ALT 18 U/L (0-41) 01/16/22 04:58 Alkaline Phosphatase 62 IU/L (40-130) 01/16/22 04:58 NT-Pro-B Natriuret Pep 2593 pg/mL (0-125) H 01/15/22 15:02 Total Protein 5.7 g/dL (6.6-8.7) L 01/16/22 04:58 Albumin 3.3 g/dL (3.5-5.2) L 01/16/22 04:58 Globulin 2.4 g/dL (1.3-4.6) 01/16/22 04:58 Procalcitonin 0.10 ng/mL (0-0.5) 01/15/22 15:02 Urine Color Yellow (Yellow) 01/16/22 06:05 Urine Appearance Clear (CLEAR) 01/16/22 06:05 Urine pH 5 (5-7) 01/16/22 06:05 Ur Specific [place] 1.010 (1.005-1.030) 01/16/22 06:05 Urine Protein 1+ (Negative) H 01/16/22 06:05 Urine Glucose (UA) 4+ (Normal) H 01/16/22 06:05 Urine Ketones Negative (Negative) 01/16/22 06:05 Urine Blood Neg (Negative) 01/16/22 06:05 Urine Nitrate Negative (Negative) 01/16/22 06:05 Urine Bilirubin Neg (Negative) 01/16/22 06:05 Urine Urobilinogen Norm mg/dL (Negative) 01/16/22 06:05 Ur Leukocyte Esterase Negative (Negative) 01/16/22 06:05 Urine RBC None /hpf (0-2) 01/16/22 06:05 Urine WBC None /hpf (0-5) 01/16/22 06:05 Ur Squamous Epith Cells None /hpf (0-5) 01/16/22 06:05 Amorphous Sediment Not Reportable 01/16/22 06:05 Urine Bacteria None /hpf (NONE) 01/16/22 06:05 Hyaline Casts 5-10 /lpf H 01/16/22 06:05 Urine Mucus Trace /hpf 01/16/22 06:05 Vitals Last Vital Signs Temp 97.3 F L 01/19/22 07:33 Pulse 73 01/19/22 11:25 Resp 19 H 01/19/22 11:25 BP 121/77 01/19/22 11:25 Pulse Ox 96 01/19/22 11:25 Discharge Plan Discharge Patient Disposition: Home Health Service Condition: Stable Prescriptions: New losartan 50 mg Tablet 50 mg PO DAILY 30 Days 0RF furosemide 40 mg Tablet 40 mg PO BID 60 Days Qty: 120 0RF gabapentin 100 mg Capsule 100 mg PO BEDTIME 30 Days 0RF ferrous gluconate 324 mg (37.5 mg iron) Tablet 324 mg PO BIDWM Qty: 60 0RF Continued Yupelri 175 mcg/3 mL solution for nebulization 175 mcg inhalation DAILY Qty: 90 11RF Vitamin B12 Gummies 1 - 2 tab PO DAILY 0RF aspirin 81 mg tablet,delayed release (DR/EC) 81 mg PO QAM 0RF rosuvastatin 20 mg tablet 10 mg PO DAILY 0RF amiodarone [Pacerone] 200 mg tablet 200 mg PO DAILY 0RF metoprolol tartrate 25 mg Tablet 25 mg PO BID@0900,2100 Qty: 60 0RF Lantus Solostar U-100 Insulin 100 unit/mL (3 mL) insulin pen 15 unit SUBCUT BEDTIME Qty: 0 0RF amlodipine 5 mg Tablet 5 mg PO DAILY Qty: 30 0RF Januvia 50 mg tablet 50 mg PO QAM 0RF omeprazole 40 mg capsule,delayed release(DR/EC) 40 mg PO QAM 0RF potassium chloride 20 mEq tablet,ER particles/crystals 20 meq PO DAILY 0RF formoterol fumarate [Perforomist] 20 mcg/2 mL solution for nebulization 2 ml INHALATION BID Qty: 120 2RF methimazole 5 mg tablet 2.5 mg PO QAM 0RF albuterol sulfate 2.5 mg /3 mL (0.083 %) Solution For Nebulization 2.5 mg INHALATION Q6H PRN (Reason: Shortness Of Breath) 0RF Milk of Magnesia 400 mg/5 mL Suspension 30 ml PO DAILY PRN (Reason: Constipation) 0RF trazodone 100 mg Tablet 100 mg PO BEDTIME 0RF bisacodyl 10 mg Suppository 10 mg CA DAILY PRN (Reason: Constipation) 0RF Jardiance 25 mg Tablet 25 mg PO DAILY 0RF ipratropium-albuterol 20-100 mcg/actuation Mist 1 puff INHALATION QID 0RF Rx Instructions: space evenly during waking hours Discontinued losartan 50 mg Tablet 75 mg PO DAILY Qty: 45 0RF Cepacol Sore Throat (iraj-men) 15-2.6 mg lozenge 1 jack mucous membrane Q4H PRN (Reason: sore throat) Qty: 16 0RF Fleet Enema 19-7 gram/118 mL Enema 118 ml CA DAILY PRN (Reason: Constipation) 0RF furosemide [Lasix] 40 mg tablet 60 mg PO BID 0RF Discharge Orders: Discharge Order (Routine); Ordered 01/19/22 Ordered By: Meet Cortez Referrals: [facility] [Outside] (You will resume [facility] services at discharge. If you have any questions or concerns please call them at [phone].) Nasreen Gomez PA [Primary Care Provider] - (Please follow up with Nasreen Mckeon on 01-31-22 at 10:00 a.m. Please call the 's office at [phone] if you have any questions or concerns.) Discharge Diet: Cardiac Discharge Activity: Resume usual activity Patient Instructions: Iron Supplements (By mouth), Furosemide (By mouth), Gabapentin (By mouth), Losartan (By mouth), Heart Failure (DC), COPD (Chronic Obstructive Pulmonary Disease) (DC), Fluid Restriction (DC), CHF Stoplight, Opioid Safety Discharge Attestations Time Spent in Discharge Care*: greater than 30 min Status at Discharge: Cognitive status at discharge: cognitively intact, Behavioral status at discharge: cooperative, Quality Metrics Clinical Quality Measures [ No reported AMI, CVA or VTE this stay] Coding Level of Care Code Acute Chg FW DC note Diagnoses Acute on chronic respiratory failure with hypercapnia J96.22 COPD (chronic obstructive pulmonary disease) J44.1 COPD type: COPD with acute exacerbation Cor pulmonale I27.81 CHF (congestive heart failure) I50.9 Hyperlipidemia E78.5 Noncompliance Z91.19
--- NOTE | 2022-01-19 15:36 | PC.NURSE ---
Patient education provided regarding fluid restriction, and importance of complying with bipap at home along with quitting smoking. Patient seems receptive to teaching. VS are stable and patient has left with brother. Patient had oxygen from home when he was discharged.
== END 2022-01-19 15:38 | disposition home health service (06) | DRG 189 ==
LOC: ER 14:34 → CSU 14:51
PROVIDERS: Admitting Provider Student in an Organized Health Care Education/Training Program; Emergency Provider Emergency Medicine; PCP Physician Assistant; Visit Provider Internal Medicine
DX: J96.22 Acute and chronic respiratory failure with hypercapnia (principal); J44.1 Chronic obstructive pulmonary disease with (acute) exacerbation; I50.32 Chronic diastolic (congestive) heart failure; E87.3 Alkalosis; I27.81 Cor pulmonale (chronic); E78.5 Hyperlipidemia, unspecified; Z91.19 Patient's noncompliance with other medical treatment and regimen; Z99.81 Dependence on supplemental oxygen; E11.9 Type 2 diabetes mellitus without complications; Z79.4 Long term (current) use of insulin; I10 Essential (primary) hypertension; Z86.16 Personal history of COVID-19; I95.9 Hypotension, unspecified; Z79.82 Long term (current) use of aspirin; Z79.84 Long term (current) use of oral hypoglycemic drugs; I25.10 Atherosclerotic heart disease of native coronary artery without angina pectoris; N18.2 Chronic kidney disease, stage 2 (mild); E03.9 Hypothyroidism, unspecified; G47.33 Obstructive sleep apnea (adult) (pediatric); F17.200 Nicotine dependence, unspecified, uncomplicated; K21.9 Gastro-esophageal reflux disease without esophagitis
CPT/HCPCS: 36415; 36416; 36600; 71045; 80048; 80051; 80053; 81001; 82330; 82805; 82962; 83735; 83880; 84100; 84145; 85025; 86403; 87040; 87449; 93005; 94640; 94660; 94664; 96372; 97161; 97165; 97530; 99291; G0378; J1650; J1815; J1940; J7626

== ENCOUNTER 2022-02-02 14:34 | Inpatient (IN) | payer MEDICARE, MEDICAID, SELFPAY ==
[2022-02-02] VITALS (14 sets, daily range): BP systolic 125–189; BP diastolic 62–94; PULSE 66–85; RESP 18–24; TEMP 36.8; O2SAT 87–99; BMI 36.6; BMI 36.9
--- NOTE | 2022-02-02 14:37 | W.ED.SOB ---
HPI - SOB/Dyspnea General: Chief Complaint: Shortness of Breath/Dyspnea Stated Complaint: RESPIRATORY DISTRESS Time Seen by Provider: 02/02/22 14:37 Limitations: altered mental status History of Present Illness: HPI Narrative: Mr. Cuellar is a 66-year-old gentleman with significant past medical history of COPD, CHF, chronic hypoxic respiratory failure on oxygen at baseline who presents to the emergency department due to respiratory distress and mental status change. Upon arrival the patient only provides limited history. Apparently he has had worse leg swelling and hand swelling for the past few days. He was found by EMS on 5 L oxygen via nasal cannula with oxygen saturations 50%. He subsequently was placed on nonrebreather mask and had improvement though mental status was still remains poor and patient's end-tidal CO2 is 80-90 per EMS. Overall course of symptoms has been worsening. Intensity is moderate to severe. EMS administered DuoNeb, 6 mg dexamethasone. Pertinent past history: COPD Onset (ago): day(s) Treatment prior to arrival: oxygen, bronchodilator and other (Steroids) Review of Systems General: Reports: ROS unobtainable due to mental status PFSH ED PFSH: Medical History Acute on chronic respiratory failure with hypoxia and hypercapnia Atrial fibrillation paroxysmal long-standing; not on anticoagulation due to history GI bleed 2018 while on eliquis BMI 30.0-30.9,adult CAD (coronary artery disease) CHF (congestive heart failure) 12/05/2021 EF 65% with grade 1 diastolic dysfunction Chronic kidney disease, stage II (mild) Chronic respiratory failure with hypoxia COPD (chronic obstructive pulmonary disease) Gold Class D, centrolobular Cor pulmonale COVID-19 (~09/2021) Diabetes Diabetes mellitus, type II GERD (gastroesophageal reflux disease) History of Khan's palsy History of GI bleed (~2018) While on eliquis History of PFTs 03/2020 obstructive and restrictive components described History of sleep study (~2012) Hyperlipidemia Hypertension Hyperthyroidism Nicotine addiction Noncompliance On home oxygen therapy 5L [place] (obstructive sleep apnea) Uses bilevel positive airway pressure (BPAP) ventilation at home Surgical History H/O hernia repair (~2015) ventral incisional with repair x 2, in 2016 with mesh and lysis of adhesions History of cardiac catheterization (~07/2021) patent stent per report History of colonoscopy History of coronary artery stent placement x 2 LAD (2005, 2010) History of endoscopy small bowel capsule History of esophagogastroduodenoscopy (EGD) Family History Mother Lung disease COPD Sister Cancer Social History Smoking and tobacco status: current some day smoker cigarettes Years cigarettes smoked: 47 [ Other cigarette details: Hx of 2PPD x 47 Years] Second hand smoke exposure: Yes Alcohol intake: current Alcohol intake frequency: holidays/special occasions only Caregiver/support person: Yes Lives independently: Yes Housing: [facility] Marital status: Single Current occupational status: 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 Current gender identity: Male Physical Exam Const: GENERAL APPEARANCE: cooperative and ill appearing HENMT: COMMON NORMALS: normocephalic and atraumatic HEAD & SCALP: normocephalic and atraumatic Eye: COMMON NORMALS: conjunctivae normal CONJUNCTIVA: Yes conjunctivae normal SCLERA: sclerae normal Neck/C-Spine: COMMON NORMALS: supple GENERAL: Yes trachea midline Resp: EFFORT & INSPECTION: Yes tachypneic AUSCULTATION: diminished lung sounds Cardio: COMMON NORMALS: regular rate and regular rhythm RATE: regular rate RHYTHM: regular rhythm GI: COMMON NORMALS: Soft to palpation PALPATION: Yes Soft to palpation and No Tenderness to palpation present (GI) Extremity: NARRATIVE EXTREMITY EXAM: Upper and lower 2 to 3+ pitting edema. GENERAL: Yes normal exam except as noted and Yes edema Neuro: COMMON NORMALS: moves all extremities SENSORIUM/ORIENTATION: Yes somnolent Course ED course: - Patient was seen and evaluated by me at bedside - Patient placed on cardiac monitors, IV access obtained - Initial evaluation notable for somnolent, somewhat ill appearance, respiratory distress. - ABG 7.18/114/119. Patient placed on BiPAP - Labs and xrays personally interpreted by me. EKG from 1504 and 1638 interpreted by me. Sinus, no stemi. 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 Normal hemoglobin. Metabolic panel with mild hemolysis, otherwise perhaps mild evidence of intravascular depletion, renal function is preserved. Lasix ordered given elevated BNP. 2-hour delta troponin negative. - Imaging notable for pulmonary vascular congestion with questionable infiltrate - Upon serial reexamination after treatment the patient was improved. Repeat ABG improving though patient will require additional time on BiPAP - Based on patient history, evaluation, and testing as interpreted the most likely cause of the patient's condition is acute on chronic hypercapnic and hypoxic respiratory failure, COPD exacerbation, heart failure exacerbation - The results of ED evaluation were discussed with the patient including plan for admission due to requirement for level of care not available if discharged to prevent significant worsening/deterioration. - Admitting service was contacted and Dr Cordova with the hospitalist service agreed to admit the patient - Patient was admitted without further deterioration or significant events. Note: Click bubbles or prepopulated burleson in note writing are used for assistance with data collection and billing and are inherently more limited than narrative and other text portions of this note. Please use narrative for additional clinical history and defer to narrative/free test for any case of contradictory information. If information appears in only free text or click bubble it should be considered present or absent as reported. Please contact note short story writer for clarifications of clinical information or contradictory information. MDM is a brief summary, contradictory or erroneous seeming information should be clarified and full note should be reviewed. Vital Signs: Vital signs: Vital Signs Temperature 97.6 F 02/05/22 07:56 Pulse Rate 59 L 02/05/22 08:05 Respiratory Rate 20 H 02/05/22 08:05 Blood Pressure 137/77 02/05/22 08:49 Pulse Oximetry 97 02/05/22 08:05 MDM - SOB/Dyspnea Medical Decision Making 66-year-old gentleman with known history of COPD and CHF presenting with respiratory distress. Patient found by EMS to be markedly hypoxic and altered mental status despite home oxygen. Patient placed on BiPAP in the ED with clinical improvement however still remains significantly ill. Admitted for further management. Medical Records I reviewed the patient's medical records. Lab Data I reviewed the patient's lab results. : 02/04/22 06:09 02/04/22 06:09 Labs/Radiology: Radiology Impressions Chest X-Ray 02/02/22 14:38 IMPRESSION: 1. Cardiac enlargement with pulmonary vascular congestion suggesting some degree of mild CHF. 2. Mild left lower lobe infiltrate and small left pleural effusion. Laboratory Results WBC 11.8 10^3/uL (4.0-10.0) H 02/02/22 14: RBC 4.54 10^6/uL (4.1-5.3) 02/02/22 14: Hgb 13.6 g/dL (11.7-16.6) 02/02/22 14: Hct 44.4 % (42.0-52.0) 02/02/22 14: MCV 97.8 fl (80-94) H 02/02/22 14: MCH 30.0 pg (28.0-34.0) 02/02/22 14: MCHC 30.6 g/dL (30.0-36.0) 02/02/22: RDW 18.0 % (12.1-15.1) H 02/02/22 14: Plt Count 285 10^3/cmm (130-400) 02/02/22: MPV 10.1 fL (7.4-10.4) 02/02/22 14: Neut % (Auto) 78.6 % 02/02/22 14: Lymph % (Auto) 6.1 % 02/02/22 14: [place] % (Auto) 10.1 % 02/02/22 14: Eos % (Auto) 0.1 % 02/02/22: Baso % (Auto) 0.9 % 02/02/22: Neut # (Auto) 9.28 10^3/uL (1.8-7.7) H 02/02/22 14: Lymph # (Auto) 0.7 10^3/uL (0.8-4.8) L 02/02/22: [place] # (Auto) 1.2 10^3/uL (0.2-0.9) H 02/02/22 14: Eos # (Auto) 0.0 10^3/uL (0.0-0.8) 02/02/22 14: Baso # (Auto) 0.1 10^3/uL (0.0-0.1) 02/02/22 14: Nucleated RBC % (auto) 0.9 % 02/02/22 14:22 Nucleated RBCs # 0.1 /100WBC 02/02/22 14:22 Specimen Type Arterial 02/02/22 15:53 Sample Site Radial, left 02/02/22 15:53 ABG pH 7.27 (7.35-7.45) L 02/02/22 15:53 ABG pCO2 90.5 mmHg (35-45) H* 02/02/22 15:53 ABG pO2 79.9 mmHg (80.0-100.0) L 02/02/22 15:53 ABG HCO3 41.7 mmol/L (22-26) H 02/02/22 15:53 ABG Base Excess 11.1 mmol/L (-2.0-2.0) H 02/02/22 15:53 Gee Test Pos 02/02/22 15:53 Hematocrit 40.4 % (42-52) L 02/02/22 15:53 Hgb O2 Saturation 90.2 % (95-100) L 02/02/22 14:33 Carboxyhemoglobin 6.8 %THgb (0.4-20.1) 02/02/22 14:33 Methemoglobin 1.0 % (0.4-1.5) 02/02/22 14:33 Total Hemoglobin 13.4 g/dL (14-18) L 02/02/22 14:33 O2 Delivery Device Bipap 02/02/22 15:53 O2 Liters/Min 15.0 % 02/02/22 14:33 FiO2 80.0 % 02/02/22 15:53 Carpentry Instructor ID Ed 02/02/22 15:53 Sodium 135 mmol/L (136-145) L 02/02/22 14:22 Potassium 5.3 mmol/L (3.5-5.1) H 02/02/22 14:22 Chloride 89 mmol/L (98-107) L 02/02/22 14:22 Carbon Dioxide 39 mmol/L (22-29) H 02/02/22 14:22 Anion Gap 12.3 (5-19) 02/02/22 14:22 BUN 18 mg/dL (8-23) 02/02/22 14:22 Creatinine 0.9 mg/dL (0.7-1.2) 02/02/22 14:22 GFR Calculation 85.0 mL/min (90-130) L 02/02/22 14:22 Glucose 166 mg/dL (65-115) H 02/02/22 14:22 Calculated Osmolality 286 mOsm/kg (285-295) 02/02/22 14:22 Lactic Acid 0.8 mmol/L (0.5-2.2) 02/02/22 16:00 Calcium 9.5 mg/dL (8.5-10.5) 02/02/22 14: Total Bilirubin 0.3 mg/dL (0.15-1.2) 02/02/22 14:22 AST 13 U/L (0-40) 02/02/22 14: ALT 20 U/L (0-41) 02/02/22 14: Alkaline Phosphatase 84 IU/L (40-130) 02/02/22 14:22 Troponin T Baseline 44 ng/L (0-15) H 02/02/22 14:22 Troponin T 120 Minute 44.89 ng/L (0-15) H 02/02/22 16:00 Delta Troponin T 0.89 ABS# (0-10) 02/02/22 16:00 NT-Pro-B Natriuret Pep 1559 pg/mL (0-125) H 02/02/22 14:22 Total Protein 5.9 g/dL (6.6-8.7) L 02/02/22 14:22 Albumin 4.3 g/dL (3.5-5.2) 02/02/22 14:22 Globulin 1.6 g/dL (1.3-4.6) 02/02/22 14:22 Procalcitonin 0.21 ng/mL (0-0.5) 02/02/22 14:22 Coronavirus 229E (PCR) Not detected (NOT DETECT) 02/02/22 14:48 SARS-CoV-2 (PCR) Not detected (NOT DETECT) 02/02/22 14:48 Critical Care Time Critical Care Time: Critical Care Time: Yes Total Critical Care Time: 45 Attestation: Due to a high probability of clinically significant, possibly life threatening deterioration, the patient required my highest level of attention and preparedness to intervene emergently and I personally spent this critical care time directly and personally managing the patient. This critical care time included obtaining a history; examining the patient; pulse oximetry; ordering and review of laboratory and imaging studies; arranging urgent treatment with development of a management plan; evaluation of patient's response to treatment; frequent reassessment; and, discussions with other providers as applicable. It was exclusive of separately billable procedures. Primary system involved is respiratory Discharge Plan Discharge Patient Disposition: Admitted As Inpatient Admit Provider: Erick Cordova Clinical Impression: Acute exacerbation of chronic obstructive airways disease, Acute on chronic congestive heart failure Condition: Stable Discharge Diet: As Directed and Cardiac Discharge Activity: Increase activity as tolerated Coding Level of Care Code ED Showcase Trimmer for Chg Fwd Exam Comprehensive
--- NOTE | 2022-02-02 14:38 | XR_ITS ---
WS: [id number] Exam: XR chest 1V portable [id number] Date/Time of Exam: 02/02/2022 2:43 PM Reason For Exam: sob Comparison 01/19/2020 there is cardiac and enlargement with increased pulmonary vascularity. There is infiltrate in the left lower lobe and small left pleural effusion. No pneumothorax. Mediastinal silho uette is unremarkable in appearance. Regional bony elements are intact. XR/XR chest 1V portable [id number] IMPRESSION: 1. Cardiac enlargement with pulmonary vascular congestion suggesting some degre e of mild CHF. 2. Mild left lower lobe infiltrate and small left pleural effusion.
--- NOTE | 2022-02-02 14:39 | ECG_ITS ---
[facility] Test Date: 2022-02-02 Pat Name: Nagi Cuellar Department: Room: Gender: Male Transportation Aid: : 1955 Requested By: Gigi Segal Order Number: [id number] Dominguez MD: Duc Rondon M.D. Measurements Intervals [place] Rate: 75 P: 39 MT: 201 QRS: 43 QRSD: 103 T: 42 QT: 355 QTc: 398 Interpretive Statements SINUS RHYTHM INCOMPLETE RIGHT BUNDLE BRANCH BLOCK [90+ ms QRS DURATION, TERMINAL R IN V1/V2, 40+ ms S IN I/aVL/V4/V5/V6] Compared to ECG 01/15/2022 13:46:19 First degree AV block no longer present Myocardial infarct finding no longer present Electronically Signed On 02-02-2022 17:10:34 CDT by Duc Rondon M.D. [email or web address]
[2022-02-02 14:43] LABS: Arterial Blood Gas Hematocrit 41.2 % (42-52); Base Excess ABG 9.4 mmol/L (-2.0-2.0); Blood Gas Allen Test Pos; Blood Gas Operator Identificat ED; Blood Gas Sample Site Radial, left; Blood Gas Sample Type Arterial; Carboxyhemoglobin 6.8 %THgb (0.4-20.1); HCO3 ABG 42.3 mmol/L (22-26); HGB O2 Sat 90.2 % (95-100); Oxygen Device NRB; Total Hemoglobin 13.4 g/dL (14-18)
[2022-02-02 14:44] LABS: ABG PH Result 7.18 (7.35-7.45)
--- NOTE | 2022-02-02 14:57 | PC.NURSE ---
Patient on bipap at this time. This RN attempted x2 for second IV access unsuccessfully. patient vitals stable.
[2022-02-02 14:58] LABS: Basophils # 0.1 10^3/uL (0.0-0.1); Basophils % 0.9 %; Eosinophils % 0.1 %; Hematocrit 44.4 % (42.0-52.0); Hemoglobin 13.6 g/dL (11.7-16.6); Lymphocytes # 0.7 10^3/uL (0.8-4.8); Lymphocytes % 6.1 %; Mean Corpuscular HGB Conc 30.6 g/dL (30.0-36.0); Mean Corpuscular Volume 97.8 fl (80-94); Mean Platelet Volume 10.1 fL (7.4-10.4); Monocytes # 1.2 10^3/uL (0.2-0.9); Monocytes % 10.1 %; Neutrophils # 9.28 10^3/uL (1.8-7.7); Neutrophils % 78.6 %; Nucleated Red Blood Cells # 0.1 /100WBC; Nucleated Red Blood Cells % 0.9 %; Platelet Count 285 10^3/cmm (130-400); Red Blood Count 4.54 10^6/uL (4.1-5.3); White Blood Count 11.8 10^3/uL (4.0-10.0)
[2022-02-02 15:35] LABS: Troponin(5th) Baseline 44 ng/L (0-15)
[2022-02-02 15:36] LABS: Alanine Aminotransferase 20 U/L (0-41); Albumin Level 4.3 g/dL (3.5-5.2); Alkaline Phosphatase 84 IU/L (40-130); Aspartate Amino Transferase 13 U/L (0-40); Blood Urea Nitrogen 18 mg/dL (8-23); Calcium 9.5 mg/dL (8.5-10.5); Carbon Dioxide 39 mmol/L (22-29); Chloride 89 mmol/L (98-107); Globulin 1.6 g/dL (1.3-4.6); Glucose 166 mg/dL (65-115); NT Pro B Type Natriuretic Pept 1559 pg/mL (0-125); Osmolality Calculated 286 mOsm/kg (285-295); Sodium 135 mmol/L (136-145); Total Bilirubin 0.3 mg/dL (0.15-1.2); Total Protein 5.9 g/dL (6.6-8.7)
[2022-02-02 15:40] LABS: Anion Gap 12.3 (5-19); Potassium 5.3 mmol/L (3.5-5.1)
--- NOTE | 2022-02-02 15:48 | PC.NURSE ---
Notified Dr. Segal of vitals, patient oxygen level between 83%-87%.
[2022-02-02 16:03] LABS: ABG PH Result 7.27 (7.35-7.45); Arterial Blood Gas Hematocrit 40.4 % (42-52); Base Excess ABG 11.1 mmol/L (-2.0-2.0); Blood Gas Allen Test Pos; Blood Gas Sample Type Arterial; HCO3 ABG 41.7 mmol/L (22-26); PO2 ABG 79.9 mmHg (80.0-100.0)
[2022-02-02 16:04] LABS: Blood Gas Operator Identificat ED; Blood Gas Sample Site Radial, left; Oxygen Device BIPAP
[2022-02-02 16:05] LABS: ABG PCO2 90.5 mmHg (35-45)
[2022-02-02 16:29] LABS: Lactic Sepsis W/Reflex 0.8 mmol/L (0.5-2.2)
[2022-02-02 16:34] LABS: Troponin 5 2HR 44.89 ng/L (0-15); Troponin 5 2HR Delta 0.89 ABS# (0-10)
--- NOTE | 2022-02-02 16:39 | ECG_ITS ---
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 Measurements Intervals [place] Rate: 71 P: -78 NV: 167 QRS: 32 QRSD: 102 T: 40 QT: 368 QTc: 400 Interpretive Statements Sinus RHYTHM INCOMPLETE RIGHT BUNDLE BRANCH BLOCK [90+ ms QRS DURATION, TERMINAL R IN V1/V2, 40+ ms S IN I/aVL/V4/V5/V6] ABNORMAL RHYTHM ECG Compared to ECG 02/02/2022 15:04:49 No change Electronically Signed On 02-02-2022 17:19:37 CDT by Duc Rondon M.D. [email or web address]
[2022-02-02] MEDS: FUROsemide 10 mg/mL SDV 4mL 40 MG IVP ×2 (16:40→18:45)
[2022-02-02] MEDS: cefTRIAXone 1,000 MG in sodium chloride 0.9% (plus) 50 ML 100 MG IV (16:42)
--- NOTE | 2022-02-02 17:02 | PC.NURSE ---
Attempted to give patient report, patient's receiving nurse unable to take report at this time.
--- NOTE | 2022-02-02 17:09 | P.HP_ITS ---
Providers/Chief Complaint Admitting Physician: Erick Cordova MD Primary Care Provider: Nasreen Gomez Chief Complaint: RESPIRATORY DISTRESS History of Present Illness Naig Cuellar is a 66 year old male for admission secondary to COPD exacerbation, oxygen dependent, has BiPAP at home, diastolic heart failure, A. fib sleep apnea, type 2 insulin-dependent diabetes, remote history of COVID-19, GI bleed not a candidate of anticoagulation presented today with chief complaint of worsening shortness of breath. Patient is stating that he has been gaining weight, getting more short of breath, endorsing orthopnea, PND, he was sent to the hospital for worsening of his confusion. He is endorsing that he does not watch his diet and drinks a lot of soda and has not been using his BiPAP on daily basis. In the ER he was diagnosed with hypercapnic respiratory failure is pH was dangerously low however in the ER his pH improved, by the time I saw him he was in cardiac stepdown unit, I requested transfer to ICU as repeat ABG did not show significant improvement however at the time of my encounter with him he was able to tell me his name, date of name of his girlfriend and sister and he asked me to call his sister as well, he said in case of any worsening respirator y stress to intubation I have called [facility] nurse to transfer him to ICU Will request another ABG, currently his BiPAP settings are 18/8 respiratory rate 16, his tidal volume is around 400 450, requested RT to change to AVAPS with target tidal volume of the 600 mL High risk for intubation Review of Systems Const: Reports: body aches Eyes: Denies: change in vision ENMT: Denies: throat pain Card: Reports: edema, swelling of feet/ankles, dyspnea on exertion and orthopnea Resp: Reports: dyspnea GI: Denies: abdominal pain : Denies: flank pain Musc: Denies: neck pain Skin/Breast: Denies: rash Neuro: Denies: headache(s) Psych: Denies: anxiety Endo: Denies: polyuria Dov/Lymph: Denies: easy bruising All/Imm: Denies: urticaria Medications/Allergies Home Medications Medication Instructions Recorded Confirmed Last Taken Type omeprazole 40 mg capsule,delayed 40 mg PO QAM 07/18/21 02/02/22 11/02/21 History release sitagliptin 50 mg tablet (Januvia) 50 mg PO QAM tab 07/23/21 02/02/22 11/02/21 History Vitamin B12 Gummies 1 - 2 tab PO DAILY 08/02/21 02/02/22 11/02/21 History aspirin 81 mg tablet,delayed 81 mg PO QAM 08/12/21 02/02/22 11/02/21 History release rosuvastatin 20 mg tablet 10 mg PO DAILY 10/01/21 02/02/22 11/01/21 History revefenacin 175 mcg/3 mL solution 175 mcg (3 mL) INHALATION DAILY 10/15/21 02/02/22 11/02/21 Rx for nebulization (Yupelri) #90 ml formoterol fumarate 20 mcg/2 mL 2 ml INHALATION BID #120 ml 12/01/21 02/02/22 Unknown Rx solution for nebulization (Perforomist) potassium chloride 20 mEq 20 meq PO DAILY 12/01/21 02/02/22 Unknown History tablet,extended release(part/cryst) amiodarone 200 mg tablet (Pacerone) 200 mg PO DAILY 12/16/21 02/02/22 Unknown History amlodipine 5 mg tablet 5 mg PO DAILY #30 tab 12/24/21 02/02/22 Unknown Rx insulin glargine 100 unit/mL (3 15 unit (0.15 mL) SUBCUT BEDTIME 12/24/21 02/02/22 12/27/21 Rx mL) subcutaneous pen (Lantus #0 ml 20 units Solostar U-100 Insulin) metoprolol tartrate 25 mg tablet 25 mg PO BID@0900,2100 #60 tab 12/24/21 02/02/22 Unknown Rx methimazole 5 mg tablet 2.5 mg PO QAM 12/28/21 02/02/22 Unknown History albuterol sulfate 2.5 mg INHALATION Q6H PRN 01/15/22 02/02/22 Unknown History bisacodyl 10 mg rectal suppository 10 mg NC DAILY PRN 01/15/22 02/02/22 Unknown History empagliflozin 25 mg tablet 25 mg PO DAILY 01/15/22 02/02/22 Unknown History (Jardiance) ipratropium 20 mcg-albuterol 100 1 puff INHALATION QID 01/15/22 02/02/22 Unknown History mcg/actuation mist for inhalation magnesium hydroxide 400 mg/5 mL 30 ml PO DAILY PRN 01/15/22 02/02/22 Unknown History oral suspension (Milk of Magnesia) trazodone 100 mg tablet 100 mg PO BEDTIME 01/15/22 02/02/22 Unknown History ferrous gluconate 324 mg (37.5 mg 324 mg PO BIDWM #60 tab 01/19/22 02/02/22 Unknown Rx iron) tablet furosemide 40 mg tablet 40 mg PO BID 60 Days #120 tab 01/19/22 02/02/22 Unknown Rx gabapentin 100 mg capsule 100 mg PO BEDTIME 30 Days cap 01/19/22 02/02/22 Unknown Rx losartan 50 mg tablet 50 mg PO DAILY 30 Days tab 01/19/22 02/02/22 Unknown Rx prednisone 20 mg tablet 20 mg PO DAILY 02/02/22 02/02/22 Unknown History Allergies Allergy/AdvReac Type Severity Reaction Status Date / Time No Known Allergies Allergy Verified 02/02/22 16:52 PFSH Acute PFSH: Medical History Acute on chronic respiratory failure with hypoxia and hypercapnia Atrial fibrillation paroxysmal long-standing; not on anticoagulation due to history GI bleed 2018 while on eliquis BMI 30.0-30.9,adult CAD (coronary artery disease) CHF (congestive heart failure) 12/05/2021 EF 65% with grade 1 diastolic dysfunction Chronic kidney disease, stage II (mild) Chronic respiratory failure with hypoxia COPD (chronic obstructive pulmonary disease) Gold Class D, centrolobular Cor pulmonale COVID-19 (~09/2021) Diabetes Diabetes mellitus, type II GERD (gastroesophageal reflux disease) History of Khan's palsy History of GI bleed (~2018) While on eliquis History of PFTs 03/2020 obstructive and restrictive components described History of sleep study (~2012) Hyperlipidemia Hypertension Hyperthyroidism Nicotine addiction Noncompliance On home oxygen therapy 5L [place] (obstructive sleep apnea) Uses bilevel positive airway pressure (BPAP) ventilation at home Surgical History H/O hernia repair (~2015) ventral incisional with repair x 2, in 2016 with mesh and lysis of adhesions History of cardiac catheterization (~07/2021) patent stent per report History of colonoscopy History of coronary artery stent placement x 2 LAD (2005, 2010) History of endoscopy small bowel capsule History of esophagogastroduodenoscopy (EGD) Family History Mother Lung disease COPD Sister Cancer Social History Smoking and tobacco status: current some day smoker cigarettes Years cigarettes smoked: 47 [ Other cigarette details: Hx of 2PPD x 47 Years] Second hand smoke exposure: Yes Alcohol intake: current Alcohol intake frequency: holidays/special occasions only Caregiver/support person: Yes Lives independently: Yes Housing: [facility]itentiary Marital status: Single Current occupational status: 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 Current gender identity: Male Vitals/I&O/Wt Last Vital Signs Pulse 82 02/02/22 16:04 Resp 20 H 02/02/22 14:56 Pulse Ox 93 02/02/22 16:04 Weight last 48 hrs Weight 99.79 kg Physical Exam Narrative: Morbidly obese male nurses putting Matias catheter at the time of my evaluation He was able to tell me his name name of his girlfriend, sister He is not showing signs of respite distress however positive asterixis Short attention span Distended abdomen Signs of fluid overload 3+ pitting edema of legs, scrotal edema noted as well Patient is on BiPAP, assisted breath sounds Mentation is fluctuant Edema of upper extremities noted as well Is able to open eyes on verbal command Data : 02/02/22 14:22 02/02/22 14:22 Micro: Microbiology 02/02/22 16:05 Blood Culture - Preliminary Blood SPECIMEN COLLECTED 02/02/22 16:00 Blood Culture - Preliminary Blood SPECIMEN COLLECTED A&P Assessment and plan (1) Acute exacerbation of chronic obstructive airways disease: Status: Acute (2) Acute on chronic congestive heart failure: Status: Acute (3) Cor pulmonale: Status: Acute (4) COPD (chronic obstructive pulmonary disease): Status: Acute Qualifiers: COPD type: COPD with acute exacerbation Qualified Code(s): J44.1 - Chronic obstructive pulmonary disease with (acute) exacerbation (5) CHF (congestive heart failure): Status: Acute (6) Hyperlipidemia: Status: Chronic (7) Acute on chronic respiratory failure with hypoxia and hypercapnia: Status: Acute Plan Acute on chronic hypoxic hypercapnic respiratory failure secondary to CHF exacerbation, pulmonary edema Concern for left lower lobe infiltrate will repeat CT scan once he is more stable Secondary to noncompliance We will start him on cefepime and Zosyn, check MRSA IV Lasix DuoNeb IV steroids Baseline PCO2 65-70mmhg Transfer to ICU as he is high risk for intubation Asked RT to change BiPAP settings to AVAPS with target tidal volume around 600 mL Positive asterixis However at the time of evaluation he was arousable able to tell me his name and date of , name of his girlfriend and sister Heike lundberg without RVR not a candidate for anticoagulation due to history of GI bleed Anasarca related to diastolic congestive heart failure exacerbation Noncompliance with his diet Start IV Lasix History hypertension: Continue antihypertensive regimen for now, Type 2 diabetes insulin-dependent, We will keep him on Lantus which is low risk for hypoglycemia Accu-Cheks every 6 hours Patient is full code We will keep him on clear liquids for now Lovenox for DVT prophylaxis Protonix Advance diet once he is more awake and alert Right now he needs to go to ICU for closer monitoring, will request another ABG in half an hour, will update house manager Will arrange room, powerhouse electrician apprentice will be notified Attestations Medical Necessity Statement*: more than 2 midnights anticipated Time Spent in Patient Care: 45mins Coding Level of Care Code Acute Prevention Rn for Chg Fwd Diagnoses Acute exacerbation of chronic obstructive airways disease J44.1 Acute on chronic congestive heart failure I50.9 Cor pulmonale I27.81 COPD (chronic obstructive pulmonary disease) J44.1 COPD type: COPD with acute exacerbation CHF (congestive heart failure) I50.9 Hyperlipidemia E78.5 Acute on chronic respiratory failure with hypoxia and hypercapnia J96.21; J96.22
--- NOTE | 2022-02-02 17:44 | PC.NURSE ---
Patient note and documentation delayed due to patient care. Patient stable upon transfer, respiratory transferred with this Rn. Patients receiving RN at bedside.
[2022-02-02] MEDS: doxycycline 100 MG in sodium chloride 0.9% (plus) 100 ML IV (17:47)
[2022-02-02 18:14] LABS: Procalcitonin 0.21 ng/mL (0-0.5)
[2022-02-02 18:38] LABS: ABG PCO2 91.6 mmHg (35-45); ABG PH Result 7.26 (7.35-7.45); Alveolar-Arterial Oxygen Gradi 36.7 mmHg (5-10); Arterial Blood Gas Hematocrit 41.6 % (42-52); Base Excess ABG 9.9 mmol/L (-2.0-2.0); Blood Gas Allen Test Pos; Blood Gas Operator Identificat BD; Blood Gas Sample Site Radial, right; Blood Gas Sample Type Arterial; HCO3 ABG 40.9 mmol/L (22-26); HGB O2 Sat 92.2 % (95-100); Ionized Calcium Level - ABG 1.2 mmol/L (1.1-1.4); Methemoglobin 0.8 % (0.4-1.5); Oxygen Device BIPAP; Oxygen Saturation ABG 97.9; PO2 ABG 98.6 mmHg (80.0-100.0); Potassium Level - ABG 5.2 mmol/L (3.5-5.0); Total Hemoglobin 13.6 g/dL (14-18)
[2022-02-02 19:37] LABS: Adenovirus Not Detected (NOT DETECT); Chlamydia Pneumoniae Not Detected (NOT DETECT); Coronavirus 229E,HKU1,NL63,OC4 Not Detected (NOT DETECT); Human Metapneumovirus Not Detected (NOT DETECT); Human Rhinovirus/Enterovirus Not Detected (NOT DETECT); Influenza A Not Detected (NOT DETECT); Influenza A H1 Not Detected (NOT DETECT); Influenza A H1-2009 Not Detected (NOT DETECT); Influenza A H3 Not Detected (NOT DETECT); Influenza B Not Detected (NOT DETECT); Mycoplasma Pneumoniae Not Detected (NOT DETECT); Parainfluenza Virus Type 1 Not Detected (NOT DETECT); Parainfluenza Virus Type 2 Not Detected (NOT DETECT); Parainfluenza Virus Type 3 Not Detected (NOT DETECT); Parainfluenza Virus Type 4 Not Detected (NOT DETECT); Respiratory Syncytial Virus A Not Detected (NOT DETECT); Respiratory Syncytial Virus B Not Detected (NOT DETECT); SARS-COV-2 Not Detected (NOT DETECT)
--- NOTE | 2022-02-02 20:39 | ECG_ITS ---
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 Measurements Intervals [place] Rate: 82 P: 46 [place]: 196 QRS: 45 QRSD: 104 T: 52 QT: 359 QTc: 421 Interpretive Statements SINUS RHYTHM INCOMPLETE RIGHT BUNDLE BRANCH BLOCK [90+ ms QRS DURATION, TERMINAL R IN V1/V2, 40+ ms S IN I/aVL/V4/V5/V6] Compared to ECG 02/02/2022 16:38:34 No significant changes Electronically Signed On 02-04-2022 13:45:21 CDT by Dannielle Butler M.D. [email or web address]
[2022-02-02] MEDS: ipratropium-albuterol 3 mL Neb INHALATION (20:47)
[2022-02-02 20:49] LABS: Glucose Point of Care 191 mg/dL (70-110)
[2022-02-02] MEDS: FUROsemide 10 mg/mL SDV 10mL 80 MG IVP (21:02)
[2022-02-02] MEDS: cefepime 1,000 MG in sodium chloride 0.9% (plus) 50 ML 100 MG IV (21:03)
[2022-02-02] MEDS: piperacillin-tazobactam 3.375 GM in sodium chloride 0.9% (plus) 50 ML IV (21:07)
[2022-02-02] MEDS: metoprolol tartrate 25 mg Tablet PO (21:10)
[2022-02-02] MEDS: insulin glargine 100 units/1 mL 15 UNIT SUBCUT (21:45)
[2022-02-02 22:28] LABS: ABG PH Result 7.33 (7.35-7.45); Arterial Blood Gas Hematocrit 39.9 % (42-52); Base Excess ABG 13.5 mmol/L (-2.0-2.0); Blood Gas Allen Test Pos; Blood Gas Operator Identificat JB; Blood Gas Sample Site Radial, right; Blood Gas Sample Type Arterial; Blood Gas Tidal Volume 0.47; HCO3 ABG 43.2 mmol/L (22-26); Oxygen Device BIPAP; PO2 ABG 54.5 mmHg (80.0-100.0)
[2022-02-02 22:37] LABS: ABG PCO2 81.6 mmHg (35-45)
[2022-02-03] VITALS (25 sets, daily range): BP systolic 109–185; BP diastolic 61–92; PULSE 58–110; RESP 14–25; TEMP 36.6; O2SAT 83–97
[2022-02-03] MEDS: ipratropium-albuterol 3 mL Neb INHALATION ×3 (02:21→14:56)
[2022-02-03 03:31] LABS: Basophils % 0.5 %; Hematocrit 43.1 % (42.0-52.0); Hemoglobin 13.1 g/dL (11.7-16.6); Lymphocytes # 0.2 10^3/uL (0.8-4.8); Mean Corpuscular HGB Conc 30.4 g/dL (30.0-36.0); Mean Corpuscular Hemoglobin 29.9 pg (28.0-34.0); Mean Corpuscular Volume 98.4 fl (80-94); Mean Platelet Volume 10.3 fL (7.4-10.4); Monocytes # 0.1 10^3/uL (0.2-0.9); Monocytes % 1.7 %; Neutrophils # 5.23 10^3/uL (1.8-7.7); Neutrophils % 90.2 %; Nucleated Red Blood Cells # 0.1 /100WBC; Platelet Count 239 10^3/cmm (130-400); Red Blood Count 4.38 10^6/uL (4.1-5.3); Red Cell Distribution Width 17.8 % (12.1-15.1); White Blood Count 5.8 10^3/uL (4.0-10.0)
[2022-02-03] MEDS: piperacillin-tazobactam 3.375 GM in sodium chloride 0.9% (plus) 50 ML IV ×2 (03:48→12:57)
[2022-02-03 04:02] LABS: Blood Urea Nitrogen 22 mg/dL (8-23); C Reactive Protein 67.1 mg/L (0.0-4.9); Calcium 8.9 mg/dL (8.5-10.5); Carbon Dioxide 40 mmol/L (22-29); Chloride 90 mmol/L (98-107); Glucose 190 mg/dL (65-115); Magnesium 1.8 mg/dL (1.7-2.3); Osmolality Calculated 300 mOsm/kg (285-295); Sodium 141 mmol/L (136-145)
[2022-02-03 04:11] LABS: Anion Gap 16.8 (5-19); Potassium 5.8 mmol/L (3.5-5.1)
[2022-02-03] MEDS: pantoprazole DR 40 mg Tablet PO (05:05)
[2022-02-03] MEDS: methIMAzole 5 MG Tablet 2.5 MG PO (05:05)
[2022-02-03 05:06] LABS: ABG PH Result 7.37 (7.35-7.45); Arterial Blood Gas Hematocrit 39.5 % (42-52); Base Excess ABG 15.9 mmol/L (-2.0-2.0); Blood Gas Allen Test Pos; Blood Gas Sample Site Radial, right; Blood Gas Sample Type Arterial; HCO3 ABG 45.1 mmol/L (22-26); Oxygen Device BIPAP; PO2 ABG 60.9 mmHg (80.0-100.0)
[2022-02-03 05:09] LABS: ABG PCO2 78.7 mmHg (35-45)
[2022-02-03] MEDS: FUROsemide 10 mg/mL SDV 10mL 80 MG IVP (07:35)
[2022-02-03] MEDS: cefepime 1,000 MG in sodium chloride 0.9% (plus) 50 ML 100 MG IV ×2 (07:36→20:29)
[2022-02-03] MEDS: sodium polystyrene sulfonate 15 gm/60 mL Btl PO (09:15)
[2022-02-03] MEDS: losartan 50 mg Tablet PO (09:15)
[2022-02-03] MEDS: acetaZOLAMIDE 250 mg Tablet 500 MG PO (09:15)
[2022-02-03] MEDS: metoprolol tartrate 25 mg Tablet PO ×2 (09:16→20:29)
--- NOTE | 2022-02-03 14:22 | PM.PN ---
Subjective Subjective: Patient improved on BiPAP overnight this morning he was on 5 L nasal cannula He wanted to eat regular food, will start on consistent carb diet at lunch Contraction alkalosis, will give him acetazolamide Given Kayexalate as well for hyperkalemia Vitals/I&O/Wt Last Vital Signs Temp 98.2 F 02/02/22 19:50 Pulse 84 02/03/22 13:00 Resp 20 H 02/03/22 13:00 BP 136/75 02/03/22 13:00 Pulse Ox 89 L 02/03/22 13:00 02/02/22 02/03/22 02/03/22 22:59 06:59 14:59 Intake Total 200 / 200 530 / 730 100 / 100 Output Total 1200 / 1200 950 / 2150 975 / 975 Balance -1000 / -1000 -420 / -1420 -875 / -875 Weight last 48 hrs Weight 97.579 kg Weight 99.79 kg Physical Exam Narrative: Patient is awake and alert Nonfocal neuro exam Breathing well on 5 L nasal cannula No acute respiratory distress Nonlabored breathing 5 L nasal cannula O2 saturation between 88 to 89% No conversational dyspnea Distended abdomen Signs of fluid overload No active wheezing noted Diminished airflow bilaterally He wanted to eat Awake and alert Pleasant and cooperative Urinary Catheter Management: Matias: Cath Placed During This Visit: yes Reason for Continuing Indwelling Catheter: Accurate Measurement of Urinary Output in Critically Ill Patients Urinary Catheter Date of Insertion: 02/02/22 Urinary Catheter Time of Insertion: 18:30 Data : 02/03/22 02:39 02/03/22 02:39 Micro: Microbiology 02/03/22 02:38 MRSA Culture - Final Nose 02/02/22 16:05 Blood Culture - Preliminary Blood SPECIMEN COLLECTED 02/02/22 16:00 Blood Culture - Preliminary Blood SPECIMEN COLLECTED A&P Assessment and plan (1) Acute on chronic respiratory failure with hypoxia and hypercapnia: Status: Acute (2) Acute on chronic congestive heart failure: Status: Acute (3) COPD (chronic obstructive pulmonary disease): Status: Acute Qualifiers: COPD type: COPD with acute exacerbation Qualified Code(s): J44.1 - Chronic obstructive pulmonary disease with (acute) exacerbation (4) Nicotine addiction: Status: Acute Qualifiers: Nicotine product type: cigarettes Substance use status: other nicotine-induced disorder Qualified Code(s): F17.218 - Nicotine dependence, cigarettes, with other nicotine-induced disorders Plan Acute on chronic hypoxic hypercarbic respiratory failure: Improved with BiPAP, did not require intubation, overnight he stated compliant with his BiPAP, This morning saturating well on 5 to 6 L nasal cannula Can be transferred out of ICU No leukocytosis, I would continue antibiotic coverage for possible pneumonia along steroids Hyperkalemia: Given Kayexalate, blood is slightly hemolyzed No signs of kidney failure Acute on chronic diastolic congestive heart failure exacerbation secondary to noncompliance, recurrent COPD exacerbation, active smoker We will give him acetazolamide, noticed contraction alkalosis Alternate with IV Lasix Consistent carb diet Insulin, sliding scale Patient is full code Consistent carb diet Anticipating discharge on Monday back home Will inform his sister, Nicotine addiction, nicotine patch prescribed Negative delta troponin COVID-19 negative MRSA PCR negative Attestations Medical Necessity Statement*: Plan to discharge on Monday Time Spent in Patient Care: 20mins Coding Level of Care Code Acute Casino Surveillance Officer for P[place]co Morin Diagnoses Acute on chronic respiratory failure with hypoxia and hypercapnia J96.21; J96.22 Acute on chronic congestive heart failure I50.9 COPD (chronic obstructive pulmonary disease) J44.1 COPD type: COPD with acute exacerbation Nicotine addiction F17.218 Nicotine product type: cigarettes Substance use status: other nicotine-induced disorder
--- NOTE | 2022-02-03 18:38 | PC.NURSE ---
Report called to CARLITOS Polanco, at 1800 and pt transported to room 264 at 1830 RN aware.
[2022-02-03] MEDS: insulin lispro 100 unit/1 mL SUBCUT (21:38)
[2022-02-03] MEDS: insulin glargine 100 units/1 mL 15 UNIT SUBCUT (21:39)
[2022-02-03] MEDS: nicotine 7 mg Patch 1 PATCH TRANSDERMA (22:07)
[2022-02-04] VITALS (16 sets, daily range): BP systolic 111–139; BP diastolic 66–76; PULSE 57–76; RESP 16–24; TEMP 36.4–37; O2SAT 91–95
[2022-02-04] MEDS: ipratropium-albuterol 3 mL Neb INHALATION ×3 (05:08→14:28)
[2022-02-04] MEDS: aspirin 81 mg EC Tablet PO (05:38)
[2022-02-04] MEDS: methIMAzole 5 MG Tablet 2.5 MG PO (05:38)
[2022-02-04] MEDS: pantoprazole DR 40 mg Tablet PO (05:38)
[2022-02-04 06:32] LABS: Basophils % 0.2 %; Eosinophils % 0.1 %; Hematocrit 42.5 % (42.0-52.0); Hemoglobin 12.9 g/dL (11.7-16.6); Lymphocytes # 0.6 10^3/uL (0.8-4.8); Lymphocytes % 6.2 %; Mean Corpuscular HGB Conc 30.4 g/dL (30.0-36.0); Mean Corpuscular Volume 98.8 fl (80-94); Monocytes # 1.1 10^3/uL (0.2-0.9); Monocytes % 10.9 %; Neutrophils # 7.92 10^3/uL (1.8-7.7); Neutrophils % 81.4 %; Nucleated Red Blood Cells % 0 %; Platelet Count 287 10^3/cmm (130-400); Red Cell Distribution Width 18.4 % (12.1-15.1); White Blood Count 9.7 10^3/uL (4.0-10.0)
[2022-02-04 06:39] LABS: Anion Gap 13.8 (5-19); Blood Urea Nitrogen 31 mg/dL (8-23); Calcium 9.1 mg/dL (8.5-10.5); Carbon Dioxide 39 mmol/L (22-29); Chloride 89 mmol/L (98-107); Glucose 174 mg/dL (65-115); Osmolality Calculated 297 mOsm/kg (285-295); Potassium 3.8 mmol/L (3.5-5.1); Sodium 138 mmol/L (136-145)
[2022-02-04 07:25] LABS: Glucose Point of Care 177 mg/dL (70-110)
[2022-02-04] MEDS: predniSONE 20 mg Tablet PO (08:52)
[2022-02-04] MEDS: amiodarone 200 mg Tablet PO (08:52)
[2022-02-04] MEDS: sennosides-docusate Tablet 1 TAB PO (08:52)
[2022-02-04] MEDS: losartan 50 mg Tablet PO (08:52)
[2022-02-04] MEDS: amlodipine 5 mg Tablet PO (08:52)
[2022-02-04] MEDS: metoprolol tartrate 25 mg Tablet PO ×2 (08:53→22:08)
[2022-02-04] MEDS: insulin lispro 100 unit/1 mL SUBCUT ×3 (08:53→17:50)
[2022-02-04] MEDS: nicotine 7 mg Patch 1 PATCH TRANSDERMA (09:01)
[2022-02-04] MEDS: cefepime 1,000 MG in sodium chloride 0.9% (plus) 50 ML 100 MG IV (10:52)
--- NOTE | 2022-02-04 11:32 | P.DS_ITS ---
Discharge Providers Date of Admission: 02/02/22 16:23 Date of Discharge: February 04, 2022 Attending Provider at Admission: Erick Cordova MD Attending Provider at Discharge: Erick Cordova MD Primary Care Provider: Nasreen Gomez Diagnoses at Discharge Discharge Diagnosis (1) Acute on chronic respiratory failure with hypoxia and hypercapnia: Status: Acute (2) Acute on chronic congestive heart failure: Status: Acute (3) COPD (chronic obstructive pulmonary disease): Status: Acute Qualifiers: COPD type: COPD with acute exacerbation Qualified Code(s): J44.1 - Chronic obstructive pulmonary disease with (acute) exacerbation Permanent problem details: Gold Class D, centrolobular (4) Nicotine addiction: Status: Acute Qualifiers: Nicotine product type: cigarettes Substance use status: other nicotine- induced disorder Qualified Code(s): F17.218 - Nicotine dependence, cigarettes, with other nicotine-induced disorders Reason for Visit Reason for Visit: RESPIRATORY DISTRESS Physical Exam Urinary Catheter Management: Matias: Cath Placed During This Visit: yes Reason for Continuing Indwelling Catheter: Other Urinary Catheter Date of Insertion: 02/02/22 Urinary Catheter Time of Insertion: 18:30 Discharge Data Studies Completed and Pending Completed Studies During Hospitalization Category Date Time Status XR chest 1V portable [id number] Urgent Exams 02/02/22 14:38 Completed Pending at discharge Category Date Time Status Blood Culture Stat Lab 02/02/22 16:05 Results Sputum Culture and Gram Stain Routine Lab 02/02/22 20:09 Uncollected Radiology Impressions Chest X-Ray 02/02/22 14:38 IMPRESSION: 1. Cardiac enlargement with pulmonary vascular congestion suggesting some degree of mild CHF. 2. Mild left lower lobe infiltrate and small left pleural effusion. Laboratory Results WBC 9.7 10^3/uL (4.0-10.0) 02/04/22 06:09 RBC 4.30 10^6/uL (4.1-5.3) 02/04/22 06:09 Hgb 12.9 g/dL (11.7-16.6) 02/04/22 06:09 Hct 42.5 % (42.0-52.0) 02/04/22 06:09 MCV 98.8 fl (80-94) H 02/04/22 06:09 MCH 30.0 pg (28.0-34.0) 02/04/22 06:09 MCHC 30.4 g/dL (30.0-36.0) 02/04/22 06:09 RDW 18.4 % (12.1-15.1) H 02/04/22 06:09 Plt Count 287 10^3/cmm (130-400) 02/04/22 06:09 MPV 10.0 fL (7.4-10.4) 02/04/22 06:09 Neut % (Auto) 81.4 % 02/04/22 06:09 Lymph % (Auto) 6.2 % 02/04/22 06:09 [place] % (Auto) 10.9 % 02/04/22 06:09 Eos % (Auto) 0.1 % 02/04/22 06:09 Baso % (Auto) 0.2 % 02/04/22 06:09 Neut # (Auto) 7.92 10^3/uL (1.8-7.7) H 02/04/22 06:09 Lymph # (Auto) 0.6 10^3/uL (0.8-4.8) L 02/04/22 06:09 [place] # (Auto) 1.1 10^3/uL (0.2-0.9) H 02/04/22 06:09 Eos # (Auto) 0.0 10^3/uL (0.0-0.8) 02/04/22 06:09 Baso # (Auto) 0.0 10^3/uL (0.0-0.1) 02/04/22 06:09 Nucleated RBC % (auto) 0 % 02/04/22 06:09 Nucleated RBCs # 0.0 /100WBC 02/04/22 06:09 Specimen Type Arterial 02/03/22 04:50 Sample Site Radial, right 02/03/22 04:50 ABG pH 7.37 (7.35-7.45) 02/03/22 04:50 ABG pCO2 78.7 mmHg (35-45) H* 02/03/22 04:50 ABG pO2 60.9 mmHg (80.0-100.0) L 02/03/22 04:50 ABG HCO3 45.1 mmol/L (22-26) H 02/03/22 04:50 ABG O2 Saturation 97.9 02/02/22 18:27 ABG Base Excess 15.9 mmol/L (-2.0-2.0) H 02/03/22 04:50 Gee Test Pos 02/03/22 04:50 A-a O2 Gradient 36.7 mmHg (5-10) H 02/02/22 18:27 Hematocrit 39.5 % (42-52) L 02/03/22 04:50 Hgb O2 Saturation 92.2 % (95-100) L 02/02/22 18:27 Carboxyhemoglobin 5.0 %THgb (0.4-20.1) 02/02/22 18:27 Methemoglobin 0.8 % (0.4-1.5) 02/02/22 18:27 Total Hemoglobin 13.6 g/dL (14-18) L 02/02/22 18:27 Sodium 138.0 mmol/L (131-143) 02/02/22 18:27 Potassium 5.2 mmol/L (3.5-5.0) H 02/02/22 18:27 Glucose 181.0 mg/dL (70-115) H 02/02/22 18:27 Ionized Calcium 1.2 mmol/L (1.1-1.4) 02/02/22 18:27 O2 Delivery Device Bipap 02/03/22 04:50 O2 Liters/Min 15.0 % 02/02/22 14:33 FiO2 50.0 % 02/03/22 04:50 Tidal Volume 0.47 02/02/22 22:15 PEEP 8.0 cmH20 02/03/22 04:50 Director Of Marketing Communications ID Rieri 02/03/22 04:50 Sodium 138 mmol/L (136-145) 02/04/22 06:09 Potassium 3.8 mmol/L (3.5-5.1) 02/04/22 06:09 Chloride 89 mmol/L (98-107) L 02/04/22 06:09 Carbon Dioxide 39 mmol/L (22-29) H 02/04/22 06:09 Anion Gap 13.8 (5-19) 02/04/22 06:09 BUN 31 mg/dL (8-23) H 02/04/22 06:09 Creatinine 1.2 mg/dL (0.7-1.2) 02/04/22 06:09 GFR Calculation 61.0 mL/min (90-130) L 02/04/22 06:09 Glucose 174 mg/dL (65-115) H 02/04/22 06:09 POC Glucose 177 mg/dL (70-110) H 02/04/22 07:20 Calculated Osmolality 297 mOsm/kg (285-295) H 02/04/22 06:09 Lactic Acid 0.8 mmol/L (0.5-2.2) 02/02/22 16:00 Calcium 9.1 mg/dL (8.5-10.5) 02/04/22 06:09 Magnesium 1.8 mg/dL (1.7-2.3) 02/03/22 02:39 Total Bilirubin 0.3 mg/dL (0.15-1.2) 02/02/22 14:22 AST 13 U/L (0-40) 02/02/22 14: ALT 20 U/L (0-41) 02/02/22 14:22 Alkaline Phosphatase 84 IU/L (40-130) 02/02/22 14:22 Troponin T Baseline 44 ng/L (0-15) H 02/02/22 14:22 Troponin T 120 Minute 44.89 ng/L (0-15) H 02/02/22 16:00 Delta Troponin T 0.89 ABS# (0-10) 02/02/22 16:00 Troponin T Hi Sens 6Hr 39.60 ng/L (0-15) H 02/02/22 20:43 Troponin T Hi Sens 6Hr Delta -4.40 ng/L (0-12) L 02/02/22 20:43 C-Reactive Protein 67.1 mg/L (0.0-4.9) H 02/03/22 02:39 NT-Pro-B Natriuret Pep 1559 pg/mL (0-125) H 02/02/22 14:22 Total Protein 5.9 g/dL (6.6-8.7) L 02/02/22 14:22 Albumin 4.3 g/dL (3.5-5.2) 02/02/22 14:22 Globulin 1.6 g/dL (1.3-4.6) 02/02/22 14:22 Procalcitonin 0.21 ng/mL (0-0.5) 02/02/22 14:22 Coronavirus 229E (PCR) Not detected (NOT DETECT) 02/02/22 14:48 SARS-CoV-2 (PCR) Not detected (NOT DETECT) 02/02/22 14:48 Vitals Last Vital Signs Temp 98.6 F 02/04/22 11:00 Pulse 69 02/04/22 11:00 Resp 18 02/04/22 11:00 BP 138/76 02/04/22 11:00 Pulse Ox 93 02/04/22 11:00 Discharge Plan Discharge Patient Disposition: Home Health Service Condition: Stable Prescriptions: New Liliam Ellipta 100-62.5-25 mcg blister with device 1 inh inhalation DAILY Qty: 60 8RF Continued Vitamin B12 Gummies 1 - 2 tab PO DAILY 0RF aspirin 81 mg tablet,delayed release (DR/EC) 81 mg PO QAM 0RF rosuvastatin 20 mg tablet 10 mg PO DAILY 0RF amiodarone [Pacerone] 200 mg tablet 200 mg PO DAILY 0RF metoprolol tartrate 25 mg Tablet 25 mg PO BID@0900,2100 Qty: 60 0RF Lantus Solostar U-100 Insulin 100 unit/mL (3 mL) insulin pen 15 unit SUBCUT BEDTIME Qty: 0 0RF amlodipine 5 mg Tablet 5 mg PO DAILY Qty: 30 0RF Januvia 50 mg tablet 50 mg PO QAM 0RF omeprazole 40 mg capsule,delayed release(DR/EC) 40 mg PO QAM 0RF potassium chloride 20 mEq tablet,ER particles/crystals 20 meq PO DAILY 0RF methimazole 5 mg tablet 2.5 mg PO QAM 0RF magnesium hydroxide [Milk of Magnesia] 400 mg/5 mL Suspension 30 ml PO DAILY PRN (Reason: Constipation) 0RF trazodone 100 mg Tablet 100 mg PO BEDTIME 0RF bisacodyl 10 mg Suppository 10 mg [place] DAILY PRN (Reason: Constipation) 0RF Jardiance 25 mg Tablet 25 mg PO DAILY 0RF losartan 50 mg Tablet 50 mg PO DAILY 30 Days 0RF furosemide 40 mg Tablet 40 mg PO BID 60 Days Qty: 120 0RF gabapentin 100 mg Capsule 100 mg PO BEDTIME 30 Days 0RF ferrous gluconate 324 mg (37.5 mg iron) Tablet 324 mg PO BIDWM Qty: 60 0RF prednisone 20 mg tablet 20 mg PO DAILY 0RF albuterol sulfate 2.5 mg /3 mL (0.083 %) Solution For Nebulization 2.5 mg INHALATION Q6H PRN (Reason: Shortness Of Breath) Qty: 3 3RF Yupelri 175 mcg/3 mL solution for nebulization 175 mcg inhalation DAILY Qty: 60 10RF Discontinued formoterol fumarate [Perforomist] 20 mcg/2 mL solution for nebulization 2 ml INHALATION BID Qty: 120 2RF ipratropium-albuterol 20-100 mcg/actuation Mist 1 puff INHALATION QID 0RF Rx Instructions: space evenly during waking hours Discharge Orders: Discharge Order (Routine); Ordered 02/04/22 Ordered By: Erick Cordova Other Ambulatory Orders: Physical Therapy Eval and Treat Outpatient (Order) Timeframe: 2 Weeks Facility: [facility] - Location: Physical Therapy Ordered By: Erick Cordova Referrals: Poncho Ospina MD [Physician] - 2 weeks (Please call Monday to make your appointment within 2 weeks.) Nasreen Gomez PA [Primary Care Provider] - 02/08/22 11:30 am Discharge Diet: As Directed and Cardiac Discharge Activity: Increase activity as tolerated Patient Instructions: CHF Stoplight, COPD Stoplight, Opioid Safety Discharge Attestations Status at Discharge: Cognitive status at discharge: cognitively intact , Behavioral status at discharge: cooperative , Coding Level of Care Code Acute g [facility] note Diagnoses Acute on chronic respiratory failure with hypoxia and hypercapnia J96.21; J96.22 Acute on chronic congestive heart failure I50.9 COPD (chronic obstructive pulmonary disease) J44.1 COPD type: COPD with acute exacerbation Nicotine addiction F17.218 Nicotine product type: cigarettes Substance use status: other nicotine-induced disorder
--- NOTE | 2022-02-04 14:08 | P.PN_ITS ---
Subjective Subjective: Patient is endorsing feeling better He required BiPAP to decrease work of breathing when he suffered from anxiety, did speak with his sister this morning Vitals/I&O/Wt Last Vital Signs Temp 98.6 F 02/04/22 11:00 Pulse 69 02/04/22 11:00 Resp 18 02/04/22 11:00 BP 138/76 02/04/22 11:00 Pulse Ox 93 02/04/22 11:00 02/03/22 02/04/22 02/04/22 22:59 06:59 14:59 Intake Total 530 / 630 720 / 1350 1060 / 1060 Output Total 775 / 1750 1600 / 3350 Balance -245 / -1120 -880 / -2000 1060 / 1060 Weight last 48 hrs Weight 97.579 kg Weight 99.79 kg Physical Exam Narrative: Patient was saturating well on 5 L nasal cannula Nonlabored breathing Suffered from increased work of breathing Nonfocal neuro exam CHF exacerbation Patient is awake and alert Nonfocal neuro exam Anxious Abdomen soft Urinary Catheter Management: Matias: Cath Placed During This Visit: yes Reason for Continuing Indwelling Catheter: Other Urinary Catheter Date of Insertion: 02/02/22 Urinary Catheter Time of Insertion: 18:30 Data : 02/04/22 06:09 02/04/22 06:09 Micro: Microbiology 02/02/22 16:00 Blood Culture - Preliminary Blood NEGATIVE TO DATE 02/02/22 16:05 Blood Culture - Preliminary Blood NEGATIVE TO DATE 02/03/22 02:38 MRSA Culture - Final Nose A&P Assessment and plan (1) Acute on chronic respiratory failure with hypoxia and hypercapnia: Status: Acute (2) Acute exacerbation of chronic obstructive airways disease: Status: Acute (3) Cor pulmonale: Status: Acute (4) COPD (chronic obstructive pulmonary disease): Status: Acute Qualifiers: COPD type: COPD with acute exacerbation Qualified Code(s): J44.1 - Chronic obstructive pulmonary disease with (acute) exacerbation (5) CHF (congestive heart failure): Status: Acute Plan Acute on chronic hypoxic hypercapnic respiratory failure Improved Currently doing well on nasal cannula He does use BiPAP intermittently to decrease work of breathing Counseled on smoking cessation Plan to discharge him tomorrow Patient does not feel fit to be discharged home today Spoke with his sister Full code Consistent carb diet Would use another dose of trazodone might for diastolic congestive heart exacerbation management Attestations Medical Necessity Statement*: Discharge tomorrow Time Spent in Patient Care: 20min Coding Level of Care Code Acute Dog Obedience Instructor for Chg Fwd Diagnoses Acute on chronic respiratory failure with hypoxia and hypercapnia J96.21; J96.22 Acute exacerbation of chronic obstructive airways disease J44.1 Cor pulmonale I27.81 COPD (chronic obstructive pulmonary disease) J44.1 COPD type: COPD with acute exacerbation CHF (congestive heart failure) I50.9
[2022-02-04] MEDS: acetaZOLAMIDE 250 mg Tablet 500 MG PO (14:57)
[2022-02-04 15:09] LABS: Glucose Point of Care 315 mg/dL (70-110)
[2022-02-04 17:34] LABS: Glucose Point of Care 257 mg/dL (70-110)
[2022-02-04 17:45] LABS: Glucose Point of Care 244 mg/dL (70-110)
[2022-02-04 17:45] LABS: Glucose Point of Care 169 mg/dL (70-110)
[2022-02-04 17:46] LABS: Glucose Point of Care 266 mg/dL (70-110)
[2022-02-04 20:33] LABS: Glucose Point of Care 159 mg/dL (70-110)
[2022-02-04] MEDS: insulin glargine 100 units/1 mL 15 UNIT SUBCUT (22:08)
[2022-02-05] VITALS: BP 123/73; PULSE 61; RESP 20; TEMP 36.3; O2SAT 93
[2022-02-05 04:00] VITALS: BP 115/73; PULSE 56; RESP 19; TEMP 36.4; O2SAT 94
[2022-02-05 05:31] VITALS: PULSE 60
[2022-02-05] MEDS: pantoprazole DR 40 mg Tablet PO (05:42)
[2022-02-05] MEDS: methIMAzole 5 MG Tablet 2.5 MG PO (05:42)
[2022-02-05] MEDS: aspirin 81 mg EC Tablet PO (05:42)
[2022-02-05 06:28] LABS: Glucose Point of Care 177 mg/dL (70-110)
[2022-02-05 07:56] VITALS: BP 137/77; PULSE 61; RESP 16; TEMP 36.4; O2SAT 92
[2022-02-05 08:05] VITALS: PULSE 59; RESP 20; O2SAT 97
[2022-02-05] MEDS: nicotine 7 mg Patch 1 PATCH TRANSDERMA (08:48)
[2022-02-05 08:49] VITALS: BP 137/77
[2022-02-05] MEDS: acetaZOLAMIDE 250 mg Tablet 500 MG PO (08:49)
[2022-02-05] MEDS: losartan 50 mg Tablet PO (08:49)
[2022-02-05] MEDS: amlodipine 5 mg Tablet PO (08:49)
[2022-02-05] MEDS: sennosides-docusate Tablet 1 TAB PO (08:49)
[2022-02-05] MEDS: metoprolol tartrate 25 mg Tablet PO (08:50)
[2022-02-05] MEDS: predniSONE 20 mg Tablet PO (08:50)
[2022-02-05] MEDS: amiodarone 200 mg Tablet PO (09:16)
[2022-02-05] MEDS: insulin lispro 100 unit/1 mL SUBCUT (09:16)
--- NOTE | 2022-02-05 09:38 | PC.SOCIAL ---
Pg 2 IMM Explained to pt Pg 2 IMM. No questions voiced. Provided pt a copy. Initialed, dated, & timed a copy & placed in chart.
--- NOTE | 2022-02-05 10:57 | P.DS_ITS ---
Discharge Providers Date of Admission: 02/02/22 16:23 Date of Discharge: February 05, 2022 Attending Provider at Admission: Erick Cordova MD Attending Provider at Discharge: Erick Cordova MD Primary Care Provider: Nasreen Gomez Diagnoses at Discharge Discharge Diagnosis (1) Acute on chronic respiratory failure with hypoxia and hypercapnia: Status: Acute (2) Acute exacerbation of chronic obstructive airways disease: Status: Acute (3) Cor pulmonale: Status: Acute (4) COPD (chronic obstructive pulmonary disease): Status: Acute Qualifiers: COPD type: COPD with acute exacerbation Qualified Code(s): J44.1 - Chronic obstructive pulmonary disease with (acute) exacerbation Permanent problem details: Gold Class D, centrolobular (5) CHF (congestive heart failure): Status: Acute Permanent problem details: 12/05/2021 EF 65% with grade 1 diastolic dysfunction Reason for Visit Reason for Visit: RESPIRATORY DISTRESS Hospital Course Hospital Course This is my admitting note Nagi Cuellar is a 66 year old male for admission secondary to COPD exacerbation, oxygen dependent, has BiPAP at home, diastolic heart failure, A. fib sleep apnea, type 2 insulin-dependent diabetes, remote history of COVID-19, GI bleed not a candidate of anticoagulation presented today with chief complaint of worsening shortness of breath. Patient is stating that he has been gaining weight, getting more short of breath, endorsing orthopnea, PND, he was sent to the hospital for worsening of his confusion.? He is endorsing that he does not watch his diet and drinks a lot of soda and has not been using his BiPAP on daily basis. In the ER he was diagnosed with hypercapnic respiratory failure is pH was dangerously low however in the ER his pH improved, by the time I saw him he was in cardiac stepdown unit, I requested transfer to ICU as repeat ABG did not show significant improvement however at the time of my encounter with him he was able to tell me his name, date of name of his girlfriend and sister and he asked me to call his sister as well, he said in case of any worsening respiratory stress to intubation I have called [facility] nurse to transfer him to ICU Will request another ABG, currently his BiPAP settings are 18/8 respiratory rate 16, his tidal volume is around 400 450, requested RT to change to AVAPS with target tidal volume of the 600 mL High risk for intubation Hospital course Patient was admitted for acute on chronic hypoxic hypercapnic respiratory fa ilure secondary to active smoking and noncompliance. He was transferred to ICU overnight, his ABG showed improvement on AVAPS, he did not show significant improvement on BiPAP. No active signs of pneumonia. He does seem to have congestive heart failure exacerbation as well. Patient stating that he is started smoking again because of his social dynamics and stressors at home. His sister was updated. Fortunately patient improved with compliance to AVAPS and BiPAP during hospitalization. His work of breathing improved. He was given acetazolamide as well for contraction alkalosis. At the time of discharge I have given him prescription for pulmonary rehab, prescribed trilogy and given prescription to follow-up with Dr. Olivares pulmonary medicine. No signs of pneumonia during this hospitalization detected. MRSA PCR negative. Blood cultures negative. Patient was counseled on smoking cessation, staying compliant with his BiPAP at home and using oxygen Physical Exam Narrative: Patient was saturating well on 5 L nasal cannula Nonlabored breathing Nonfocal neuro exam CHF exacerbation Patient is awake and alert Nonfocal neuro exam Anxious Abdomen soft Urinary Catheter Management: Matias: Cath Placed During This Visit: yes, but has since been removed by the nurse Reason for Continuing Indwelling Catheter: Other Urinary Catheter Date of Insertion: 02/02/22 Urinary Catheter Time of Insertion: 18:30 Date Urinary Catheter Removed: 02/04/22 Time Urinary Catheter Discontinued: 09:10 Discharge Data Studies Completed and Pending Completed Studies During Hospitalization Category Date Time Status XR chest 1V portable [id number] Urgent Exams 02/02/22 14:38 Completed Pending at discharge Category Date Time Status Blood Culture Stat Lab 02/02/22 16:05 Results Sputum Culture and Gram Stain Routine Lab 02/02/22 20:09 Uncollected Radiology Impressions Chest X-Ray 02/02/22 14:38 IMPRESSION: 1. Cardiac enlargement with pulmonary vascular congestion suggesting some degree of mild CHF. 2. Mild left lower lobe infiltrate and small left pleural effusion. Laboratory Results WBC 9.7 10^3/uL (4.0-10.0) 02/04/22 06:09 RBC 4.30 10^6/uL (4.1-5.3) 02/04/22 06:09 Hgb 12.9 g/dL (11.7-16.6) 02/04/22 06:09 Hct 42.5 % (42.0-52.0) 02/04/22 06:09 MCV 98.8 fl (80-94) H 02/04/22 06:09 MCH 30.0 pg (28.0-34.0) 02/04/22 06:09 MCHC 30.4 g/dL (30.0-36.0) 02/04/22 06:09 RDW 18.4 % (12.1-15.1) H 02/04/22 06:09 Plt Count 287 10^3/cmm (130-400) 02/04/22 06:09 MPV 10.0 fL (7.4-10.4) 02/04/22 06:09 Neut % (Auto) 81.4 % 02/04/22 06:09 Lymph % (Auto) 6.2 % 02/04/22 06:09 Frederick % (Auto) 10.9 % 02/04/22 06:09 Eos % (Auto) 0.1 % 02/04/22 06:09 Baso % (Auto) 0.2 % 02/04/22 06:09 Neut # (Auto) 7.92 10^3/uL (1.8-7.7) H 02/04/22 06:09 Lymph # (Auto) 0.6 10^3/uL (0.8-4.8) L 02/04/22 06:09 Frederick # (Auto) 1.1 10^3/uL (0.2-0.9) H 02/04/22 06:09 Eos # (Auto) 0.0 10^3/uL (0.0-0.8) 02/04/22 06:09 Baso # (Auto) 0.0 10^3/uL (0.0-0.1) 02/04/22 06:09 Nucleated RBC % (auto) 0 % 02/04/22 06:09 Nucleated RBCs # 0.0 /100WBC 02/04/22 06:09 Specimen Type Arterial 02/03/22 04:50 Sample Site Radial, right 02/03/22 04:50 ABG pH 7.37 (7.35-7.45) 02/03/22 04:50 ABG pCO2 78.7 mmHg (35-45) H* 02/03/22 04:50 ABG pO2 60.9 mmHg (80.0-100.0) L 02/03/22 04:50 ABG HCO3 45.1 mmol/L (22-26) H 02/03/22 04:50 ABG O2 Saturation 97.9 02/02/22 18:27 ABG Base Excess 15.9 mmol/L (-2.0-2.0) H 02/03/22 04:50 Gee Test Pos 02/03/22 04:50 A-a O2 Gradient 36.7 mmHg (5-10) H 02/02/22 18:27 Hematocrit 39.5 % (42-52) L 02/03/22 04:50 Hgb O2 Saturation 92.2 % (95-100) L 02/02/22 18:27 Carboxyhemoglobin 5.0 %THgb (0.4-20.1) 02/02/22 18:27 Methemoglobin 0.8 % (0.4-1.5) 02/02/22 18:27 Total Hemoglobin 13.6 g/dL (14-18) L 02/02/22 18:27 Sodium 138.0 mmol/L (131-143) 02/02/22 18:27 Potassium 5.2 mmol/L (3.5-5.0) H 02/02/22 18:27 Glucose 181.0 mg/dL (70-115) H 02/02/22 18:27 Ionized Calcium 1.2 mmol/L (1.1-1.4) 02/02/22 18:27 O2 Delivery Device Bipap 02/03/22 04:50 O2 Liters/Min 15.0 % 02/02/22 14:33 FiO2 50.0 % 02/03/22 04:50 Tidal Volume 0.47 02/02/22 22:15 PEEP 8.0 cmH20 02/03/22 04:50 Consulting Hr Professional ID Rieri 02/03/22 04:50 Sodium 138 mmol/L (136-145) 02/04/22 06:09 Potassium 3.8 mmol/L (3.5-5.1) 02/04/22 06:09 Chloride 89 mmol/L (98-107) L 02/04/22 06:09 Carbon Dioxide 39 mmol/L (22-29) H 02/04/22 06:09 Anion Gap 13.8 (5-19) 02/04/22 06:09 BUN 31 mg/dL (8-23) H 02/04/22 06:09 Creatinine 1.2 mg/dL (0.7-1.2) 02/04/22 06:09 GFR Calculation 61.0 mL/min (90-130) L 02/04/22 06:09 Glucose 174 mg/dL (65-115) H 02/04/22 06:09 POC Glucose 177 mg/dL (70-110) H 02/05/22 06:24 Calculated Osmolality 297 mOsm/kg (285-295) H 02/04/22 06:09 Lactic Acid 0.8 mmol/L (0.5-2.2) 02/02/22 16:00 Calcium 9.1 mg/dL (8.5-10.5) 02/04/22 06:09 Magnesium 1.8 mg/dL (1.7-2.3) 02/03/22 02:39 Total Bilirubin 0.3 mg/dL (0.15-1.2) 02/02/22 14:22 AST 13 U/L (0-40) 02/02/22 14:22 ALT 20 U/L (0-41) 02/02/22 14:22 Alkaline Phosphatase 84 IU/L (40-130) 02/02/22 14:22 Troponin T Baseline 44 ng/L (0-15) H 02/02/22 14:22 Troponin T 120 Minute 44.89 ng/L (0-15) H 02/02/22 16:00 Delta Troponin T 0.89 ABS# (0-10) 02/02/22 16:00 Troponin T Hi Sens 6Hr 39.60 ng/L (0-15) H 02/02/22 20:43 Troponin T Hi Sens 6Hr Delta -4.40 ng/L (0-12) L 02/02/22 20:43 C-Reactive Protein 67.1 mg/L (0.0-4.9) H 02/03/22 02:39 NT-Pro-B Natriuret Pep 1559 pg/mL (0-125) H 02/02/22 14:22 Total Protein 5.9 g/dL (6.6-8.7) L 02/02/22 14:22 Albumin 4.3 g/dL (3.5-5.2) 02/02/22 14:22 Globulin 1.6 g/dL (1.3-4.6) 02/02/22 14:22 Procalcitonin 0.21 ng/mL (0-0.5) 02/02/22 14:22 Coronavirus 229E (PCR) Not detected (NOT DETECT) 02/02/22 14:48 SARS-CoV-2 (PCR) Not detected (NOT DETECT) 02/02/22 14:48 Vitals Last Vital Signs Temp 97.6 F 02/05/22 07:56 Pulse 59 L 02/05/22 08:05 Resp 20 H 02/05/22 08:05 BP 137/77 02/05/22 08:49 Pulse Ox 97 02/05/22 08:05 Discharge Plan Discharge Patient Disposition: Home Condition: Stable Prescriptions: New Trelegy Ellipta 100-62.5-25 mcg blister with device 1 inh inhalation DAILY Qty: 60 8RF Continued Vitamin B12 Gummies 1 - 2 tab PO DAILY 0RF aspirin 81 mg tablet,delayed release (DR/EC) 81 mg PO QAM 0RF rosuvastatin 20 mg tablet 10 mg PO DAILY 0RF amiodarone [Pacerone] 200 mg tablet 200 mg PO DAILY 0RF metoprolol tartrate 25 mg Tablet 25 mg PO BID@0900,2100 Qty: 60 0RF Lantus Solostar U-100 Insulin 100 unit/mL (3 mL) insulin pen 15 unit SUBCUT BEDTIME Qty: 0 0RF amlodipine 5 mg Tablet 5 mg PO DAILY Qty: 30 0RF Januvia 50 mg tablet 50 mg PO QAM 0RF omeprazole 40 mg capsule,delayed release(DR/EC) 40 mg PO QAM 0RF potassium chloride 20 mEq tablet,ER particles/crystals 20 meq PO DAILY 0RF methimazole 5 mg tablet 2.5 mg PO QAM 0RF magnesium hydroxide [Milk of Magnesia] 400 mg/5 mL Suspension 30 ml PO DAILY PRN (Reason: Constipation) 0RF trazodone 100 mg Tablet 100 mg PO BEDTIME 0RF bisacodyl 10 mg Suppository 10 mg [place] DAILY PRN (Reason: Constipation) 0RF Jardiance 25 mg Tablet 25 mg PO DAILY 0RF losartan 50 mg Tablet 50 mg PO DAILY 30 Days 0RF furosemide 40 mg Tablet 40 mg PO BID 60 Days Qty: 120 0RF gabapentin 100 mg Capsule 100 mg PO BEDTIME 30 Days 0RF ferrous gluconate 324 mg (37.5 mg iron) Tablet 324 mg PO BIDWM Qty: 60 0RF prednisone 20 mg tablet 20 mg PO DAILY 0RF albuterol sulfate 2.5 mg /3 mL (0.083 %) Solution For Nebulization 2.5 mg INHALATION Q6H PRN (Reason: Shortness Of Breath) Qty: 3 3RF Yupelri 175 mcg/3 mL solution for nebulization 175 mcg inhalation DAILY Qty: 60 10RF Discontinued formoterol fumarate [Perforomist] 20 mcg/2 mL solution for nebulization 2 ml INHALATION BID Qty: 120 2RF ipratropium-albuterol 20-100 mcg/actuation Mist 1 puff INHALATION QID 0RF Rx Instructions: space evenly during waking hours Discharge Orders: Discharge Order (Routine); Ordered 02/05/22 Ordered By: Erick Cordova Other Ambulatory Orders: Physical Therapy Eval and Treat Outpatient (Order) Timeframe: 2 Weeks Facility: [facility] - Location: Physical Therapy Ordered By: Erick Cordova Referrals: [facility] [Outside] Datar,Poncho Miller MD [Physician] - 2 weeks (Please call Monday to make your appointment within 2 weeks.) Nasreen Gomez PA [Primary Care Provider] - 02/08/22 11:30 am Discharge Diet: As Directed and Cardiac Discharge Activity: Increase activity as tolerated Patient Instructions: CHF Stoplight, COPD Stoplight, Opioid Safety Discharge Attestations Time Spent in Discharge Care*: less than 30 min Status at Discharge: Cognitive status at discharge: cognitively intact , Behavioral status at discharge: cooperative , Quality Metrics Clinical Quality Measures [ No reported AMI, CVA or VTE this stay] Coding Level of Care Code Acute Chg FW DC note Diagnoses Acute on chronic respiratory failure with hypoxia and hypercapnia J96.21; J96.22 Acute exacerbation of chronic obstructive airways disease J44.1 Cor pulmonale I27.81 COPD (chronic obstructive pulmonary disease) J44.1 COPD type: COPD with acute exacerbation CHF (congestive heart failure) I50.9
[2022-02-06 01:27] LABS: Bacillus cereus group Not Detected (NOT DETECT); Bacillus subtillis group Not Detected (NOT DETECT); Corynebacterium Not Detected (NOT DETECT); Cutibacterium acnes (P.acnes) Not Detected (NOT DETECT); Enterococcus Not Detected (NOT DETECT); Enterococcus faecalis Not Detected (NOT DETECT); Enterococcus faecium Not Detected (NOT DETECT); Lactobacillus species Not Detected (NOT DETECT); Listeria Not Detected (NOT DETECT); Listeria monocytogenes Not Detected (NOT DETECT); Micrococcus Not Detected (NOT DETECT); Pan Candida Not Detected (NOT DETECT); Pan Gram-Negative Not Detected (NOT DETECT); Staphylococcus epidermidis Not Detected (NOT DETECT); Staphylococcus lugdunensis Not Detected (NOT DETECT); Staphylococcus species Not Detected (NOT DETECT); Streptococcus agalactiae Not Detected (NOT DETECT); Streptococcus anginosus group Not Detected (NOT DETECT); Streptococcus pneumoniae Not Detected (NOT DETECT); Streptococcus pyogenes Not Detected (NOT DETECT); Streptococcus species Not Detected (NOT DETECT)
== END 2022-02-05 11:14 | disposition home health service (06) | DRG 291 ==
LOC: ER 16:46 → CSU 16:55 → ICU 19:58 → MEDSURG 02-03 18:28
PROVIDERS: Admitting Provider Internal Medicine; Emergency Provider Emergency Medicine; PCP Physician Assistant; Visit Provider Internal Medicine
DX: I13.0 Hypertensive heart and chronic kidney disease with heart failure and stage 1 through stage 4 chronic kidney disease, or unspecified chronic kidney disease (principal); I50.33 Acute on chronic diastolic (congestive) heart failure; J96.22 Acute and chronic respiratory failure with hypercapnia; J96.21 Acute and chronic respiratory failure with hypoxia; J44.1 Chronic obstructive pulmonary disease with (acute) exacerbation; N18.2 Chronic kidney disease, stage 2 (mild); E11.22 Type 2 diabetes mellitus with diabetic chronic kidney disease; Z99.81 Dependence on supplemental oxygen; I25.10 Atherosclerotic heart disease of native coronary artery without angina pectoris; Z95.5 Presence of coronary angioplasty implant and graft; F17.210 Nicotine dependence, cigarettes, uncomplicated; I48.0 Paroxysmal atrial fibrillation; G47.33 Obstructive sleep apnea (adult) (pediatric); I27.81 Cor pulmonale (chronic); Z86.16 Personal history of COVID-19; Z91.11 Patient's noncompliance with dietary regimen; E87.5 Hyperkalemia; Z79.82 Long term (current) use of aspirin; Z79.4 Long term (current) use of insulin; Z79.891 Long term (current) use of opiate analgesic; Z79.51 Long term (current) use of inhaled steroids
CPT/HCPCS: 36415; 36416; 36600; 51702; 71045; 80048; 80051; 80053; 82330; 82803; 82805; 82962; 83605; 83735; 83880; 84145; 84484; 85025; 86140; 87040; 87077; 87205; 87635; 87641; 93005; 94640; 94660; 96365; 96367; 96372; 96375; 99285; J0692; J0696; J1815 ×2; J1940; J2543; J2920; J3490; J7512; J7611